=== PATIENT | female | born 1945 | race Caucasian/White ===

== ENCOUNTER 2016-12-09 21:55 | Observation (INO) | payer MEDICARE ==
--- NOTE | 2016-12-09 23:34 | ED ---
Loren You Thomas, scribed for Hermelindo Stanley MD on 12/09/16 at 2317 . GI/ HPI - HPI Summary HPI Summary: The pt is a 71 y/o F referred to the ED from her PCP Dr. Holbrook after he evaluated her today. She has had bloody stool for about a month. She additionally c/o SOB (onset a month ago). She states that her Sx started when she was switched from Plavix to another unspecified medication a month ago. She is scheduled for an appointment with a manager medical writing in two days. She is on 3L of oxygen at home. PMHx: HTN, COPD. - History of Current Complaint Chief Complaint: EDGIBleed Time Seen by Provider: 12/09/16 23:10 Stated Complaint: SENT BY DR HOLBROOK Onset/Duration: Started Weeks Ago - a month, Still Present Timing: Constant Pain Intensity: 0 Associated Signs and Symptoms: Positive: Blood w/Stool, Other: - POS: SOB Aggravating Factor(s): Nothing Alleviating Factor(s): Nothing - Additional Pertinent History Primary Care Physician: [id number] - Allergy/Home Medications Allergies/Adverse Reactions: Allergies Allergy/AdvReac Type Severity Reaction Status Date / Time No Known Allergies Allergy Verified 12/09/16 21:59 Home Medications: Home Medications B12 1 dose PO DAILY 12/10/16 [History Confirmed 12/10/16] Clopidogrel TAB* 75 mg PO DAILY 12/10/16 [History Confirmed 12/10/16] Ferrex 150 150 mg PO DAILY 12/10/16 [History Confirmed 12/10/16] Montelukast Sodium TAB* 10 mg PO DAILY 12/10/16 [History Confirmed 12/10/16] Spiriva CAP.INH* 2 puff INH DAILY 12/10/16 [History Confirmed 12/10/16] PMH/Surg Hx/FS Hx/Imm Hx Previously Healthy: No Endocrine/Hematology History: Denies: Hx Diabetes Cardiovascular History: Reports: Hx Hypercholesterolemia, Hx Hypertension - CONTROLLED WITH MED Denies: Hx Angina, Hx Coronary Artery Disease, Hx Myocardial Infarction, Hx Pacemaker/ICD, Hx Valvular Heart Disease Respiratory History: Reports: Hx Chronic Obstructive Pulmonary Disease (COPD) Denies: Hx Asthma History: Reports: Other Problems/Disorders - chronic renal insufficiency Musculoskeletal History: Reports: Hx Arthritis - LOWER BACK Sensory History: Reports: Hx Contacts or Glasses - reading Denies: Hx Hearing Aid Opthamlomology History: Reports: Hx Contacts or Glasses - reading Psychiatric History: Denies: Hx Panic Disorder - Cancer History Hx Chemotherapy: No Hx Radiation Therapy: No - Surgical History Surgery Procedure, Year, and Place: CAROTID ARTERY STENT 2010 AT [place]; lap hysterectomy at [facility] [place] Hx Anesthesia Reactions: No Infectious Disease History: No Infectious Disease History: Denies: Traveled Outside the [place] in Last 30 Days - Family History Known Family History: Positive: Other - POS: CA, throat - Social History Alcohol Use: None Substance Use Type: Reports: None Smoking Status (MU): Heavy Every Day Tobacco Smoker Type: Cigarettes Amount Used/How Often: 1 PPD Length of Time of Smoking/Using Tobacco: 40 YRS. Have You Smoked in the Last Year: Yes Review of Systems Constitutional: Negative Negative: Fever Eyes: Negative ENT: Negative Cardiovascular: Negative Positive: Shortness Of Breath - onset 1 month ago Gastrointestinal: Negative Genitourinary: Negative Musculoskeletal: Negative Skin: Negative Neurological: Negative Psychological: Normal All Other Systems Reviewed And Are Negative: Yes Physical Exam Triage Information Reviewed: Yes Vital Signs On Initial Exam: Initial Vitals Temp Pulse Resp BP Pulse Ox 98.2 F 91 20 152/60 98 12/09/16 21:59 12/09/16 21:59 12/09/16 21:59 12/09/16 21:59 12/09/16 21:59 Vital Signs Reviewed: Yes Appearance: Positive: Well-Appearing, No Pain Distress Skin: Positive: Warm Head/Face: Positive: Normal Head/Face Inspection Eyes: Positive: MAX ENT: Positive: Hearing grossly normal Neck: Positive: Supple Respiratory/Lung Sounds: Positive: Breath Sounds Present Cardiovascular: Positive: RRR Abdomen Description: Positive: Nontender, Soft Bowel Sounds: Positive: Present Musculoskeletal: Positive: Strength/ROM Intact Neurological: Positive: Alert, Oriented to Person Place, Time Diagnostics - Vital Signs Vital Signs Temp Pulse Resp BP Pulse Ox 12/09/16 21:59 98.2 F 91 20 152/60 98 - Laboratory Result Diagrams: 12/09/16 23:23 12/09/16 23:23 Lab Statement: Any lab studies that have been ordered have been reviewed, and results considered in the medical decision making process. Re-Evaluation - Re-Evaluation First Eval Re-Evaluation Time: 01:09 - results d/w pt, case d/w hospitalist MELISSA Course/Dx - Diagnoses Provider Diagnoses: GI bleed, ACS (acute coronary syndrome) - Physician Notifications Discussed Care Of Patient With: Carmencita Collado Time Discussed With Above Provider: 01:09 Instructed by Provider To: Other - Discussed case with the hospitalist, who will admit the pt Discharge - Discharge Plan Condition: Stable Disposition: ADMITTED TO [facility] documentation as recorded by the Loren brower Thomas accurately reflects the service I personally performed and the decisions made by me, Hermelindo Stanley MD.
[2016-12-09 23:54] LABS: Hematocrit 32 % (35-47); Hemoglobin 10.2 g/dl (12.0-16.0); Mean Corpuscular HGB Conc 32 g/dl (31-36); Mean Corpuscular Hemoglobin 29 pg (27-31); Mean Corpuscular Volume 93 fL (80-97); Mean Platelet Volume 9 um3 (7.4-10.4); Red Blood Count 3.47 10^6/ul (4.0-5.4); Red Cell Distribution Width 15 % (10.5-15); White Blood Count 11.5 10^3/ul (3.5-10.8)
[2016-12-09 23:58] LABS: Troponin I 0.08 ng/mL (<0.04)
[2016-12-10 00:13] LABS: Albumin 3.9 g/dL (3.2-5.2); BUN/Creatinine Ratio 16.6 (8-20); Calcium 9.4 mg/dL (8.6-10.3); EGFR African American 40.1 (>60); EGFR Non-African American 31.2 (>60); Globulin 3.4 g/dL (2-4); Potassium 5.9 mmol/L (3.5-5.0); Total Bilirubin 0.2 mg/dL (0.2-1.0); Total Protein 7.3 g/dL (6.4-8.9)
[2016-12-10] MEDS ORDERED: Acetaminophen TAB* 325 MG PO PRN (01:38)
[2016-12-10] MEDS ORDERED: Ondansetron INJ* 2 MG/ML VIAL IV PRN (01:38)
[2016-12-10] MEDS ORDERED: Docusate CAP* 100 MG PO PRN (01:38)
[2016-12-10] MEDS ORDERED: Al Hydrox/Mg Hydrox/Simet LIQ* 30 ML UDC PO PRN (01:38)
[2016-12-10] MEDS ORDERED: Senna TAB PO PRN (01:38)
[2016-12-10] MEDS ORDERED: Albuterol 2.5 MG/3 ML NEB.SOL* (0.083%) INH PRN (01:44)
[2016-12-10] MEDS ORDERED: NS 0.9% 1000 ML* 1,000 ML IV SCH (01:45)
[2016-12-10] MEDS ORDERED: Pantoprazole IV* 40 MG IV SCH (02:00)
[2016-12-10 06:11] LABS: Hematocrit 29 % (35-47); Hemoglobin 9.2 g/dl (12.0-16.0); Mean Corpuscular HGB Conc 32 g/dl (31-36); Mean Corpuscular Hemoglobin 30 pg (27-31); Mean Corpuscular Volume 94 fL (80-97); Mean Platelet Volume 9 um3 (7.4-10.4); Red Blood Count 3.09 10^6/ul (4.0-5.4); Red Cell Distribution Width 15 % (10.5-15); White Blood Count 9.7 10^3/ul (3.5-10.8)
[2016-12-10 06:29] LABS: BUN/Creatinine Ratio 16.4 (8-20); EGFR African American 39.6 (>60); EGFR Non-African American 30.8 (>60); HDL Cholesterol 39.8 mg/dL
[2016-12-10 06:46] LABS: Troponin I 0.07 ng/mL (<0.04)
[2016-12-10 07:18] LABS: Potassium 6.3 mmol/L (3.5-5.0)
--- NOTE | 2016-12-10 07:37 | RAD ---
HISTORY: Shortness of breath COMPARISONS: December 07, 2014 VIEWS: 4: Frontal dual-energy and lateral views of the chest. FINDINGS: CARDIOMEDIASTINAL SILHOUETTE: The cardiomediastinal silhouette is normal. ORIN: The orin are normal. PLEURA: The costophrenic angles are sharp. No pleural abnormalities are noted. LUNG PARENCHYMA: There is hyperinflation with flattening of the diaphragm and expansion of the AP diameter of the chest. ABDOMEN: The upper abdomen is clear. There is no subphrenic gas. BONES AND SOFT TISSUES: No bone or soft tissue abnormalities are noted. OTHER: None. IMPRESSION: HYPERINFLATION, CONSISTENT WITH COPD. NO ACTIVE CARDIOPULMONARY DISEASE.
--- NOTE | 2016-12-10 07:49 | HP ---
CC: Prosper Holbrook MD * HISTORY AND PHYSICAL: DATE OF ADMISSION: 12/10/16 TIME OF EVALUATION: 0100. PRIMARY CARE PHYSICIAN: Prosper Holbrook MD CHIEF COMPLAINT: Positive blood in the stool. HISTORY OF PRESENT ILLNESS: This is a 71-year-old female with past medical history of COPD on 3 L of oxygen, who presented to the emergency room after her primary care called when they received a positive Hemoccult. The patient states she has had black stools for the past month. She saw her primary few days ago. They sent her home with stool cards. She returned the stool cards and they called this evening saying that she needs to come in for evaluation. She states she has been more short of breath over the past few days. No chest pain. No coughing. She is not lightheaded, no dizziness. No abdominal pain. No changes in her bowels. No fevers or chills. She states she has been gaining weight. Her daughter states she has a very good smith appetite. No nausea, vomiting, or diarrhea. She was scheduled to see GI tomorrow, in fact, at [place], and was scheduled for a colonoscopy in January as she is due for one. Otherwise, remaining review of systems is negative. The patient was seen in the emergency room, found to have a positive Hemoccult and an elevated troponin, and was referred to the hospital service for further evaluation. PAST MEDICAL HISTORY: 1. Hypertension. 2. Hyperlipidemia. 3. COPD, on 3 L continuous. 4. CKD. 5. Obstructive sleep apnea, not on CPAP. 6. History of peripheral vascular disease. 7. History of right carotid endarterectomy. 8. Hysterectomy. MEDICATIONS: 1. Irbesartan 300 mg p.o. daily. 2. Aspirin 81 mg daily. 3. Lovastatin 20 mg daily. 4. Metoprolol 100 mg. 5. Hydrochlorothiazide 12.5 mg. 6. Gabapentin 100 mg. 7. Albuterol inhaler every 4 hours as needed. 8. Spiriva two puffs in the morning. 9. Symbicort one puff in the morning. 10. Another medication that is unable to read the handwriting. 11. Clopidogrel 75 mg p.o. daily. 12. Vitamin B12 1000 mcg daily. 13. Montelukast 10 mg daily. ALLERGIES: No known drug allergies. FAMILY HISTORY: Father from aneurysm at 65. Mother from an accident. SOCIAL HISTORY: The patient lives alone. She is independent of her ADLs. She has a heavy pack year history. She states she has cut down; does not smoke every day. No alcohol or illicit drug use. Her daughter is her healthcare proxy. Her name is Joann Goldberg. Code status is full code. REVIEW OF SYSTEMS: A 14-point review of systems was reviewed. Pertinent positives and negative are mentioned in the HPI, otherwise negative. PHYSICAL EXAMINATION GENERAL: Frail, elderly female, in no acute distress with her daughter at the bedside. VITAL SIGNS: Temperature 98.2, pulse rate 85, respiratory rate 20, oxygen saturation 99% on 3 L, blood pressure 144/60. HEENT: Head: Normocephalic. Pupils equal and reactive. Anicteric. Oropharynx: Mucous membranes moist. NECK: Supple. No lymphadenopathy. RESPIRATORY: Diminished breath sounds. Poor aeration. Fine expiratory wheeze , most prominent on the left. CARDIAC: Regular rate and rhythm. Soft systolic murmur. ABDOMEN: Soft, nontender, nondistended. EXTREMITIES: No clubbing, cyanosis, or edema. +1 DPs. NEUROLOGIC: Alert and oriented x3. No focal neurologic deficits. LABORATORY DATA: White count 11.5, hemoglobin 10.2, hematocrit 32, platelets 226. INR 0.86. Sodium 136, potassium 5.9, chloride 101, bicarb 31, BUN 27, creatinine 1.63, troponin 0.08, glucose 116. RADIOGRAPHIC DATA: EKG showed normal sinus rhythm, no significant ST changes. ASSESSMENT: This is a 71-year-old female with a past medical history of chronic obstructive pulmonary disease, peripheral vascular disease, on aspirin and Plavix, who presented to the emergency room after being called from her primary for positive Hemoccult. 1. Gastrointestinal bleed. Assessment: Patient with black stools for the past month, most likely an occult upper GI bleed. She is on aspirin and Plavix, and still smoking intermittently. Never had an endoscopy before in the past. Her H and H is stable. Her hemodynamics are stable. Plan: We will hold her aspirin and Plavix, start her on Protonix and will recommend followup with GI in the morning. We will keep her NPO in case they are able to do an endoscopy in the morning. 2. Elevated troponin. Assessment: Patient denies any chest pain, although she has been short of breath for the past few days. She does have a history of peripheral vascular disease. Plan: We will admit her to telemetry. Trend her troponin. Check a lipid panel and obtain an echocardiogram. We will also get a chest x-ray. 3. Hyperkalemia. We will hold her ARB and repeat her labs in the morning. CHRONIC MEDICAL PROBLEMS: 1. COPD. On 3 L as noted. Stated more short of breath. Get a baseline chest x- ray. Resume her inhaler regimen. 2. Peripheral vascular disease. As mentioned, will hold her aspirin and Plavix until further evaluated, and followup GI and Cardiology regarding resuming this depending on results of her endoscopy. 3. Hypertension. We will resume her metoprolol. As mentioned, we will hold her losartan and hydrochlorothiazide as she is NPO and her hyperkalemia. 4. FEN. As mentioned, keep the patient NPO for now with gentle IV fluids. 5. DVT prophylaxis. The patient scores high risk in the setting of GI bleed and place her on SCDs. 6. Code status. Full code. PATIENT TIME: Greater than 50 minutes were spent doing the history and physical , more than half the time was spent in direct patient contact. [id number]/CPS #: [id number]
[2016-12-10] MEDS ORDERED: Insulin REGULAR(*) 1 UNITS UNIT IV PUSH ONE (07:57)
[2016-12-10] MEDS ORDERED: Dextrose 50% Syringe 50 ML* 25 GM/50 ML SYRINGE IV PUSH PRN (07:57)
[2016-12-10] MEDS ORDERED: Perflutren Lipid Microsphere* 3 ML VIAL ONE (08:04)
[2016-12-10] MEDS ORDERED: Sodium Polystyrene ORAL.SOL* 15 GM/60 ML BTL PO ONE (08:22)
[2016-12-10] MEDS ORDERED: Calcium Gluconate INJ* 1 GM in NS 0.9% 50 ML* 50 ML IVPB ONE (08:30)
[2016-12-10] MEDS: Albuterol HFA INHALER* 8 gm MDI INH PRN ×4 (08:37→19:26)
[2016-12-10] MEDS: Tiotropium CAP.INH* CAP.INH/18 MCG INH SCH (08:43)
[2016-12-10] MEDS: Mometasone/Formoter 200/5 MDI INH SCH ×2 (08:43→20:10)
[2016-12-10] MEDS ORDERED: Tiotropium CAP.INH* CAP.INH/18 MCG INH ONE (08:52)
[2016-12-10] MEDS: Gabapentin CAP(*) 100 MG PO SCH ×2 (08:54→19:19)
[2016-12-10] MEDS: Metoprolol Succinate XL TAB* 100 MG PO SCH (08:54)
[2016-12-10] MEDS ORDERED: Losartan TAB* 25 MG PO SCH (09:00)
[2016-12-10] MEDS ORDERED: Spiriva Inhaler DEVICE* 1 EACH DEVICE ONE (09:00)
--- NOTE | 2016-12-10 09:55 | PN ---
Subjective Date of Service: 12/10/16 Interval History: Pt is feeling fine. She denies any SOB. No CP. She has no abdominal pain. She is anxious to get and get home. Objective Active Medications: Acetaminophen (Tylenol Tab*) 650 mg PO Q4H PRN PRN Reason: FEVER/PAIN Al Hydrox/Mg Hydrox/Simethicone (Maalox Plus*) 30 ml PO Q6H PRN PRN Reason: INDIGESTION Albuterol (Ventolin 2.5 Mg/3 Ml Neb.Olamide*) 2.5 mg INH Q4H PRN PRN Reason: SOB/WHEEZING Last Admin: 12/10/16 03:59 Dose: 2.5 mg Albuterol (Ventolin Hfa Inhaler*) 2 puff INH Q2H PRN PRN Reason: SOB/WHEEZING Last Admin: 12/10/16 08:37 Dose: 2 puff Dextrose (D50w Syringe 50 Ml*) 25 gm IV PUSH ONCE PRN PRN Reason: FS < 60 Last Admin: 12/10/16 08:50 Dose: 25 gm Docusate Sodium (Colace Cap*) 100 mg PO BID PRN PRN Reason: CONSTIPATION Gabapentin (Neurontin Cap(*)) 100 mg PO BID PENDING SALE TO [facility] Last Admin: 12/10/16 08:54 Dose: 100 mg Sodium Chloride (Ns 0.9% 1000 Ml*) 1,000 mls @ 75 mls/hr IV PER RATE PENDING SALE TO [facility] Last Admin: 12/10/16 03:15 Dose: 75 mls/hr Lovastatin (Mevacor(Nf)) 20 mg PO 1700 PENDING SALE TO [facility] Metoprolol Succinate (Toprol Xl Tab*) 100 mg PO DAILY PENDING SALE TO [facility] Last Admin: 12/10/16 08:54 Dose: 100 mg Mometasone Furoate/Formoterol Fumar (Dulera 200/5 Mdi*) 2 puff INH BID PENDING SALE TO [facility] PRN Reason: Protocol Last Admin: 12/10/16 08:43 Dose: 2 puff Montelukast Sodium (Singulair Tab*) 10 mg PO BEDTIME PENDING SALE TO [facility] Ondansetron HCl (Zofran Inj*) 4 mg IV Q4H PRN PRN Reason: NAUSEA/VOMITING Pantoprazole Sodium (Protonix Iv*) 40 mg IV Q24H PENDING SALE TO [facility] Last Admin: 12/10/16 03:14 Dose: 40 mg Senna (Senokot Tab*) 1 tab PO BID PRN PRN Reason: CONSTIPATION Tiotropium Garrison (Spiriva Cap.Inh*) 1 cap INH DAILY KEISHA Last Admin: 12/10/16 08:43 Dose: 1 cap Vital Signs 12/10/16 12/10/16 12/10/16 02:00 02:03 02:22 Temperature Pulse Rate 86 82 Respiratory Rate Blood Pressure 101/88 (mmHg) O2 Sat by Pulse 100 100 Oximetry 12/10/16 12/10/16 12/10/16 02:30 03:34 03:59 Temperature 98.3 F Pulse Rate 81 97 85 Respiratory 16 16 Rate Blood Pressure 124/60 146/62 (mmHg) O2 Sat by Pulse 100 100 99 Oximetry 12/10/16 12/10/16 12/10/16 07:10 07:35 08:48 Temperature 98.0 F Pulse Rate 76 80 Respiratory 16 16 16 Rate Blood Pressure 115/43 (mmHg) O2 Sat by Pulse 100 93 Oximetry 12/10/16 08:54 Temperature Pulse Rate Respiratory 24 Rate Blood Pressure (mmHg) O2 Sat by Pulse Oximetry Oxygen Devices in Use Now: Nasal Cannula - 3L Appearance: Elderly female sitting up in bed, NAD Eyes: No Scleral Icterus Ears/Nose/Mouth/Throat: Mucous Membranes Moist Respiratory: Symmetrical Chest Expansion and Respiratory Effort, Clear to Auscultation - diminished breath sounds in all lung dunlap with few scattered wheezes Cardiovascular: NL Sounds; No Murmurs; No JVD, RRR, No Edema Abdominal: NL Sounds; No Tenderness; No Distention Extremities: No Clubbing, Cyanosis Skin: No Rash or Ulcers, No Nodules or Sclerosis Neurological: Alert and Oriented x 3 Result Diagrams: 12/10/16 06:01 12/10/16 06:01 Assess/Plan/Problems-Billing Ms Lambert is a 71 yo F who has a h/o stage III CKD, chronic anemia, HTN, HLD, VEENA and COPD with chronic hypoxic respiratory failure who presented to the ER with c/o heme positive stool. - Patient Problems (1) Anemia Current Visit: Yes Status: Acute Code(s): D64.9 - ANEMIA, UNSPECIFIED SNOMED Code(s): 664895493 Comment: THe patietn has been chronically anemic dating back to 01/2016. She has been having black stools but takes iron supplementation. Her PCP had her do stool cards and they came up positive. Will get GI consultation. Continue protonix IV. (2) Elevated troponin Current Visit: Yes Status: Acute Code(s): R74.8 - ABNORMAL LEVELS OF OTHER SERUM ENZYMES SNOMED Code(s): 272224537 Comment: I suspect the elevated troponin is related to her CKD. She has no CP. Echo results pending. No further work up necessary unless echo is abnormal. (3) Hyperkalemia Current Visit: Yes Status: Acute Code(s): E87.5 - HYPERKALEMIA SNOMED Code (s): 21956944 Comment: Unclear what drove up the K. Continue to hold losartan and HCTZ. She has received kayexalate, calcium gluconate and insulin/dextrose. Follow up K at 1300. (4) COPD (chronic obstructive pulmonary disease) Current Visit: Yes Status: Acute Code(s): J44.9 - CHRONIC OBSTRUCTIVE PULMONARY DISEASE, UNSPECIFIED SNOMED Code(s): 01934024 Comment: No signs of exacerbation. She has chronic hypoxic respiratory failure and requires 3L O2 continuously at home. (5) HTN (hypertension) Current Visit: Yes Status: Acute Code(s): I10 - ESSENTIAL (PRIMARY) HYPERTENSION SNOMED Code(s): 87216550 Comment: BP is under good control. Continue current medication regimen. (6) HLD (hyperlipidemia) Current Visit: Yes Status: Acute Code(s): E78.5 - HYPERLIPIDEMIA, UNSPECIFIED SNOMED Code(s): 83063398 Comment: Continue lovastatin. (7) Stage III chronic kidney disease Current Visit: Yes Status: Acute Code(s): N18.3 - CHRONIC KIDNEY DISEASE, STAGE 3 (MODERATE) SNOMED Code(s): 242385286 Comment: Creatinine is at baseline. Continue to follow. (8) DVT prophylaxis Current Visit: Yes Status: Acute Code(s): AGU4840 - SNOMED Code(s): 728239075 Comment: SCDs (9) Full code status Current Visit: Yes Status: Acute Code(s): Z78.9 - OTHER SPECIFIED HEALTH STATUS SNOMED Code(s): 798206586
--- NOTE | 2016-12-10 12:08 | ECHO ---
Patient: JYOTI MONTES [facility] Rec#: [id number] : 1945 Date: 12/10/2016 Age: 71y Height: 152.4 cm / 60.0 in Weight: 72.57 kg / 159.9 lbs Sex: F BSA: 1.7 Room#: 453 Admit Date#: 12/10/2016 Type: Inpatient Referring: Carmencita Collado Reading: Rajeev Jiang MD Bankruptcy Legal Assistant: Lilia Lynn RDCS CC: Prosper Holbrook MD Transthoracic Echocardiogram Indication: SOB, ACS BP: 146/62 HR: 71 Rhythm: NSR Indications Shortness of Breath Findings History: HTN, COPD, smoker. Technical Comments: The study is technically difficult. The study is technically limited due to patient body habitus. The study is technically limited due to the patient's history of COPD. The study is technically limited due to the patient's smoking history. Completed at 0900. Left Ventricle: The left ventricular chamber size is normal. Mild concentric left ventricular hypertrophy is observed. Global left ventricular wall motion and contractility are within normal limits. There is normal left ventricular systolic function. The estimated ejection fraction is 60-65%. Abnormal left ventricular diastolic function is observed. Abnormal left ventricular diastolic filling is observed, consistent with impaired relaxation. Left Atrium: The left atrium is slightly dilated. Right Ventricle: The right ventricle wall thickness is moderately increased. The right ventricle is slightly dilated. The right ventricular global systolic function is normal. Right Atrium: The right atrial cavity size is normal. Aortic Valve: The aortic valve is trileaflet. The aortic valve leaflets are mildly thickened. There is no evidence of aortic regurgitation. There is no evidence of aortic stenosis. Mitral Valve: There is mitral annular calcification. The mitral valve leaflets are mildly thickened. There is a trace of mitral regurgitation. There is no evidence of mitral stenosis. Tricuspid Valve: The tricuspid valve leaflets are normal. There is trace to mild tricuspid regurgitation. The right ventricular systolic pressure is estimated at 24 mmHg. There is evidence that pulmonary hypertension may be underestimated. There is no tricuspid stenosis. Pulmonic Valve: The pulmonic valve appears normal. There is a trace pulmonic regurgitation. There is no pulmonic stenosis. Pericardium: There is no significant pericardial effusion. A pericardial fat pad is visualized. Aorta: There is no dilatation of the ascending aorta. The aortic arch is not well visualized. There is no dilation of the aortic root. Pulmonary Artery: The main pulmonary artery is not well visualized. Venous: The inferior vena cava appears normal in size. There is a greater than 50% respiratory change in the inferior vena cava dimension. Contrast: Definity was used to optimize study. 3 mL of diluted Definity was utilized. Intravenous contrast was used to enhance endocardial border definition. Conclusions Global left ventricular wall motion and contractility are within normal limits. There is normal left ventricular systolic function. The estimated ejection fraction is 60-65%. Mild concentric left ventricular hypertrophy is observed. The right ventricular global systolic function is normal. There is no evidence of aortic stenosis. There is a trace of mitral regurgitation. There is trace to mild tricuspid regurgitation. The right ventricular systolic pressure is estimated at 24 mmHg. There is no significant pericardial effusion. Measurements Name Value Normal Range RVIDd (AP) 2D 2.6 cm (0.9 - 2.6) RVDdMajor (2D) 4.4 cm (2.2 - 4.4) RVAW (2D) 1.3 cm (0.2 - 0.5) RAd ISD 4CH 4.4 cm (3.4 - 4.9) RA (A4C)W 3.3 cm (2.9 - 4.6) IVSd (2D) 1.1 cm (0.6 - 1) LVPWd (2D) 1.1 cm (0.6 - 1) LVIDd (2D) 3.6 cm (3.6 - 5.4) LVIDs (2D) 1.9 cm - LV FS (2D) 46 % (25 - 45) Aortic Annulus 1.8 cm (1.4 - 2.6) Ao root diameter (2D) 2.7 cm (2.1 - 3.5) Ascending Ao 2.9 cm (2.1 - 3.4) LA dimension (AP) 2D 3.8 cm (2.3 - 3.8) LAd ISD 4CH 5.2 cm (2.9 - 5.3) LA ISD 4CH W 4.4 cm (2.5 - 4.5) Name Value Normal Range LA ESV SP 4CH (A/L) 71 ml - LA ESV SP 2CH (A/L) 46 ml - LA ESV BP (A/L) 58 ml - LA ESV BP (A/L) index 34.24 ml/m2 - LA ESV SP 4CH (MOD) 67 ml - LA ESV SP 2CH (MOD) 45 ml - Name Value Normal Range MV E-wave Vmax 0.86 m/sec - MV deceleration time 429 msec - MV A-wave Vmax 1.18 m/sec - MV E:A ratio 0.73 ratio - LV septal e' Vmax 0.05 m/sec - LV lateral e' Vmax 0.04 m/sec - LV E:e' septal ratio 17.2 ratio - LV E:e' lateral ratio 21.5 ratio - Name Value Normal Range AV Vmax 1.82 m/sec - AV VTI 38.4 cm - AV peak gradient 13.19 mmHg - AV mean gradient 6.65 mmHg - LVOT Vmax 1.4 m/sec - LVOT VTI 35.79 cm - LVOT peak gradient 7.81 mmHg - LVOT mean gradient 3.42 mmHg - Name Value Normal Range TR Vmax 2.3 m/sec - TR peak gradient 21 mmHg - RAP 3 mmHg - RVSP 24 mmHg - IVC diameter 1.7 cm - Name Value Normal Range PV Vmax 1.19 m/sec - PV peak gradient 5.66 mmHg -
[2016-12-10 13:04] LABS: Hematocrit 27 % (35-47); Hemoglobin 8.5 g/dl (12.0-16.0)
[2016-12-10 13:31] LABS: Potassium 5.2 mmol/L (3.5-5.0)
[2016-12-10] MEDS ORDERED: Meperidine SYRINGE* 50 MG/ML ONE (14:39)
[2016-12-10] MEDS ORDERED: Midazolam* 1 MG/ML 5 ML VIAL (5 MG) ONE (14:39)
[2016-12-10] MEDS ORDERED: Lovastatin (NF) 10 MG TAB PO SCH (17:00)
--- NOTE | 2016-12-10 17:43 | CONS ---
GASTROENTEROLOGY CONSULT: DATE: 12/10/16 - ROOM #453 CONSULTING PHYSICIANS: Kelly Goldberg; Prosper Holbrook. REASON FOR CONSULT: Dark stool for a month with anemia and heme-positive stool on an outpatient collection. She has baseline shortness of breath, on continuous 3 L home O2. HISTORY: This 71-year-old woman, who has cut back on smoking though not entirely quit read on the bottle that black stool was a dangerous sign when she refilled her iron. She contacted her primary office and was sent home with Hemoccults. They returned positive. She states the stool has been black for a month. There has not been change in pattern during that time. She has not seen any red blood. She was given the iron by a practitioner at [facility], though she cannot recall the details. It was done some months ago. She had never been on iron before that she can recall She had a colonoscopy at the [facility], July 2009, with 3 rectosigmoid lesions removed via hot biopsy. A prior colonoscopy in 2002 at [facility] was negative. She has never had an upper endoscopy. She is said to have a good appetite and does get normally hungry. There has been no vomiting or acid indigestion. She was changed from Plavix to clopidogrel a few months back and she wonders whether that might have been related to the stool turning black. PAST MEDICAL HISTORY: 1. Obesity. 2. Smoking. 3. Chronic renal disease - she just saw Dr. Elizalde within the month and was asked to restrict the protein and promote fruit intake. On this admission, her potassium was up and she received Kayexalate. 4. COPD - on 3 L O2. 5. Sleep apnea. 6. Status post right carotid endarterectomy - she is followed by vascular surgical office at [place], though she does not recall the names. 7. Hysterectomy - laparoscopic for Pap smear changes. She states the ovaries were left. MEDICATIONS: Outpatient: Aspirin 81, Plavix 75, lovastatin 20, metoprolol 100 , hydrochlorothiazide 12.5, irbesartan 300, a variety of inhalers, vitamin B12 1 mg, and an unknown medication indecipherable on the handwritten list. PHYSICAL EXAM: She is a moderately obese, chronically ill-appearing woman with oxygen applied. She is able to sit up, says she is hungry. She can lie flat. Nonetheless, she looks chronically ill with a sallow complexion. HEENT exam shows no icterus. She has no adenopathy. Breath sounds were diminished symmetrically very much so. The abdomen is protuberant. A couple of small laparoscopic lower abdominal scars. There is no hernia. Bowel sounds are active and she is nontender. Perianal inspection is normal. Extremities show puffiness but no pitting edema. LABORATORY DATA: Hemoglobin on admission 10.2, hematocrit 32, MCV 93, platelets 226; these all appear similar to values tracing back to January 2016 when hemoglobin was 10.4, hematocrit 32, MCV 95, platelets 182. IMPRESSION: This 71-year-old woman with severe chronic obstructive pulmonary disease and vascular disease, has an anemia that clearly has a number of contributors. Chronic renal disease is playing a role (erythropoietin 04/05/16 was 16.3 compared to a normal range of 2.6 to 18.5 and thus it inappropriately not fully responding) and she is on numerous medications that probably accelerate gastrointestinal blood loss slightly. She does not have any symptoms of an upper gastrointestinal peptic disorder, but the next step which would be relatively noninvasive and potentially useful would be to perform an upper endoscopy. It is unclear whether that can be done with standard conscious sedation and adult scope, but is likely to be well tolerated via a pediatric scope if that is what is required. The procedure will be for informational purposes as further followup with her vascular prescribing practitioners would be required prior to stopping Plavix for removing polyps or repeating colonoscopy. With colonoscopies in 2002 and 2009 having unimpressive results, the odds of a large anemia-producing colon lesion at this time are fairly low. Rectal - done at EGD - hemoccult negative [id number]/[facility] #: [id number] [facility]
[2016-12-10] MEDS ORDERED: Montelukast Sodium TAB* 10 MG PO SCH (21:00)
--- NOTE | 2016-12-11 04:03 | PRO ---
DATE: 12/10/16 - ROOM #453 REFERRING PHYSICIAN: Prosper Holbrook * PROCEDURE: Upper endoscopy with standard scope while patient on Plavix. INDICATION: This 71-year-old woman had noted dark stool a month ago. She was found to be heme positive as an outpatient and was referred to the ER. She had not had any peptic pain. She has not had any nausea, vomiting or diarrhea since admission. She is hungry. ENDOSCOPIST: Dr. Lloyd MEDICATION: Small incremental doses of midazolam 2 mg, meperidine 37.5. FINDINGS: She is a chronically ill-appearing moderately overweight (centripetal ) older woman in no overt distress. She has oxygen applied and is comfortable lying at 15 degrees. EGD: Larynx - symmetric limited views. Esophagus - easily entered and gagging is minimal to almost nonexistent. The mucosa is normal in the upper mid and lower esophagus with the EG junction somewhat loose and there is a tongue of smooth columnar mucosa at 2 o'clock and a minimal erosion at 4 o'clock. There are no masses. Stomach - generally normal mucosa of the cardia, fundus, body, and antrum. Full insufflation views of the cardia later did show a small erosion high in the cardia though there was no blood loss and it was quite superficial. The main gastric body and antrum appeared normal. Duodenum - the pylorus, bulb and second through fourth portions appeared normal. No erosions and no blood was seen. IMPRESSION: 1. Loose esophagogastric junction. Addendum: ALLISON done and stool heme negative 2. Minimal GERD - we will start omeprazole 20 mg. 3. Mild fundal gastritis. 4. Heme-positive stool - another collection either off or on reduced iron and with reduced consumption of melon would be reasonable. With colonoscopies in 2002 and 2009 a large anemia-inducing polyp is somewhat unlikely. [id number]/[facility] #: [id number] [facility]
[2016-12-11 04:37] LABS: Hematocrit 28 % (35-47); Hemoglobin 8.8 g/dl (12.0-16.0); Mean Corpuscular HGB Conc 32 g/dl (31-36); Mean Corpuscular Hemoglobin 30 pg (27-31); Mean Corpuscular Volume 93 fL (80-97); Mean Platelet Volume 9 um3 (7.4-10.4); Red Blood Count 2.97 10^6/ul (4.0-5.4); Red Cell Distribution Width 15 % (10.5-15)
[2016-12-11 04:57] LABS: BUN/Creatinine Ratio 16.8 (8-20); Calcium 9.1 mg/dL (8.6-10.3); EGFR African American 34.7 (>60); Potassium 4.7 mmol/L (3.5-5.0)
[2016-12-11] MEDS: Albuterol HFA INHALER* 8 gm MDI INH PRN (05:50)
[2016-12-11] MEDS ORDERED: Omeprazole CAP* 20 MG PO SCH (07:30)
[2016-12-11 07:33] VITALS: BP 138/48
[2016-12-11] MEDS: Metoprolol Succinate XL TAB* 100 MG PO SCH (07:41)
[2016-12-11] MEDS: Gabapentin CAP(*) 100 MG PO SCH (07:42)
[2016-12-11] MEDS: Mometasone/Formoter 200/5 MDI INH SCH (08:12)
[2016-12-11] MEDS: Tiotropium CAP.INH* CAP.INH/18 MCG INH SCH (08:12)
--- NOTE | 2016-12-11 11:00 | PN ---
Subjective Date of Service: 12/11/16 Interval History: Pt is feeling well. She feels ready to go home. She denies any more SOB than usual. She had a brown stool this AM. Objective Active Medications: Acetaminophen (Tylenol Tab*) 650 mg PO Q4H PRN PRN Reason: FEVER/PAIN Al Hydrox/Mg Hydrox/Simethicone (Maalox Plus*) 30 ml PO Q6H PRN PRN Reason: INDIGESTION Albuterol (Ventolin 2.5 Mg/3 Ml Neb.Olamide*) 2.5 mg INH Q4H PRN PRN Reason: SOB/WHEEZING Last Admin: 12/10/16 03:59 Dose: 2.5 mg Albuterol (Ventolin Hfa Inhaler*) 2 puff INH Q2H PRN PRN Reason: SOB/WHEEZING Last Admin: 12/11/16 05:50 Dose: 2 puff Dextrose (D50w Syringe 50 Ml*) 25 gm IV PUSH ONCE PRN PRN Reason: FS < 60 Last Admin: 12/10/16 08:50 Dose: 25 gm Docusate Sodium (Colace Cap*) 100 mg PO BID PRN PRN Reason: CONSTIPATION Gabapentin (Neurontin Cap(*)) 100 mg PO BID [facility] Last Admin: 12/11/16 07:42 Dose: 100 mg Lovastatin (Mevacor (Nf)) 20 mg PO 1700 [facility] Last Admin: 12/10/16 16:40 Dose: 20 mg Metoprolol Succinate (Toprol Xl Tab*) 100 mg PO DAILY [facility] Last Admin: 12/11/16 07:41 Dose: 100 mg Mometasone Furoate/Formoterol Fumar (Dulera 200/5 Mdi*) 2 puff INH BID [facility] PRN Reason: Protocol Last Admin: 12/11/16 08:12 Dose: 2 puff Montelukast Sodium (Singulair Tab*) 10 mg PO BEDTIME [facility] Last Admin: 12/10/16 19:19 Dose: 10 mg Omeprazole (Prilosec Cap*) 20 mg PO 0730 [facility] Last Admin: 12/11/16 07:42 Dose: 20 mg Ondansetron HCl (Zofran Inj*) 4 mg IV Q4H PRN PRN Reason: NAUSEA/VOMITING Senna (Senokot Tab*) 1 tab PO BID PRN PRN Reason: CONSTIPATION Tiotropium [place]de (Spiriva Cap.Inh*) 1 cap INH DAILY [facility] Last Admin: 12/11/16 08:12 Dose: 1 cap Vital Signs 12/10/16 12/10/16 12/10/16 11:34 15:55 17:53 Temperature 98.8 F 98.0 F 98.2 F Pulse Rate 78 82 88 Respiratory 16 18 18 Rate Blood Pressure 136/45 128/49 149/46 (mmHg) O2 Sat by Pulse 100 100 98 Oximetry 12/10/16 12/10/16 12/10/16 19:12 19:19 20:00 Temperature 98.4 F Pulse Rate 79 88 Respiratory 17 16 16 Rate Blood Pressure 134/43 (mmHg) O2 Sat by Pulse 99 96 Oximetry 12/10/16 12/11/16 12/11/16 21:19 00:32 04:06 Temperature 98.7 F 98.2 F Pulse Rate 84 84 Respiratory 18 24 20 Rate Blood Pressure 117/51 123/61 (mmHg) O2 Sat by Pulse 99 100 Oximetry 12/11/16 12/11/16 12/11/16 07:31 07:42 07:47 Temperature 97.5 F Pulse Rate 86 Respiratory 20 18 18 Rate Blood Pressure 138/48 (mmHg) O2 Sat by Pulse 100 Oximetry 12/11/16 12/11/16 08:15 09:42 Temperature Pulse Rate 83 Respiratory 16 18 Rate Blood Pressure (mmHg) O2 Sat by Pulse 98 Oximetry Oxygen Devices in Use Now: Nasal Cannula - 3L-98% Appearance: Elderly female sitting on the edge of the bed, NAD Eyes: No Scleral Icterus Ears/Nose/Mouth/Throat: Mucous Membranes Moist Respiratory: Symmetrical Chest Expansion and Respiratory Effort, Clear to Auscultation - markedly diminished breath sounds in all lung dunlap Cardiovascular: NL Sounds; No Murmurs; No JVD, RRR, No Edema Abdominal: NL Sounds; No Tenderness; No Distention Extremities: No Clubbing, Cyanosis Skin: No Rash or Ulcers, No Nodules or Sclerosis Neurological: Alert and Oriented x 3 Result Diagrams: 12/11/16 04:29 12/11/16 04:29 Microbiology and Other Data: Microbiology 12/10/16 15:00 Stool Occult Blood (NATASHA) - Final Stool Assess/Plan/Problems-Billing Ms Lambert is a 71 yo F who has a h/o stage III CKD, chronic anemia, HTN, HLD, VEENA and COPD with chronic hypoxic respiratory failure who presented to the ER with c/o heme positive stool. - Patient Problems (1) Anemia Current Visit: Yes Status: Acute Code(s): D64.9 - ANEMIA, UNSPECIFIED SNOMED Code(s): 720121135 Comment: EGD done yesterday did not reveal any source of bleed. ? lower GI bleed vs heme positive stool card secondary to cross reaction with melon (was informed by the Dr. Lloyd that melon can cause a positive and she had been eating a lot of melon. Follow up CBC on 12/13/16. Follow up with Dr. Holbrook as an outpatient. (2) Elevated troponin Current Visit: Yes Status: Acute Code(s): R74.8 - ABNORMAL LEVELS OF OTHER SERUM ENZYMES SNOMED Code(s): 919558516 Comment: I suspect the elevated troponin is related to her CKD. She has no CP. Echo shows a normal EF and no significant wall motion abnormalities. (3) Hyperkalemia Current Visit: Yes Status: Acute Code(s): E87.5 - HYPERKALEMIA SNOMED Code (s): 09406194 Comment: Potassium level has normalized. ? related to intake. Follow up K level 12/13/16. Hold ARB. Follow up with Dr. Elizalde as an outpatient. (4) COPD (chronic obstructive pulmonary disease) Current Visit: Yes Status: Acute Code(s): J44.9 - CHRONIC OBSTRUCTIVE PULMONARY DISEASE, UNSPECIFIED SNOMED Code(s): 12952717 Comment: No signs of exacerbation. She has chronic hypoxic respiratory failure and requires 3L O2 continuously at home. (5) HTN (hypertension) Current Visit: Yes Status: Acute Code(s): I10 - ESSENTIAL (PRIMARY) HYPERTENSION SNOMED Code(s): 19365739 Comment: BP is under good control. Continue current medication regimen. (6) HLD (hyperlipidemia) Current Visit: Yes Status: Acute Code(s): E78.5 - HYPERLIPIDEMIA, UNSPECIFIED SNOMED Code(s): 77570758 Comment: Continue lovastatin. (7) Stage III chronic kidney disease Current Visit: Yes Status: Acute Code(s): N18.3 - CHRONIC KIDNEY DISEASE, STAGE 3 (MODERATE) SNOMED Code(s): 151778238 Comment: Creatinine is at baseline. Continue to follow. (8) DVT prophylaxis Current Visit: Yes Status: Acute Code(s): HKV9937 - SNOMED Code(s): 671816138 Comment: SCDs (9) Full code status Current Visit: Yes Status: Acute Code(s): Z78.9 - OTHER SPECIFIED HEALTH STATUS SNOMED Code(s): 568713690
--- NOTE | 2016-12-12 05:15 | DS ---
DISCHARGE SUMMARY: DATE OF ADMISSION: 12/10/16 DATE OF DISCHARGE: 12/11/16 PRIMARY CARE PROVIDER: Prosper Holbrook MD PRINCIPAL DIAGNOSES: 1. Possible GI bleed. 2. Chronic anemia. 3. Hyperkalemia. SECONDARY DIAGNOSES: 1. Hypertension. 2. Hyperlipidemia 3. Chronic hypoxic respiratory failure secondary to O2 dependent chronic obstructive pulmonary disease. 4. Chronic kidney disease, stage 3. 5. Obstructive sleep apnea. 6. Peripheral vascular disease. DISCHARGE MEDICATIONS: 1. Metoprolol XL 100 mg p.o. daily. 2. Ventolin 2 puffs inhaled q.4 hours p.r.n. shortness of breath 3. Plavix 75 mg p.o. daily. 4. Vitamin B12 1000 mcg p.o. daily. 5. Spiriva 1 puff inhaled daily. 6. Singulair 10 mg p.o. daily. 7. Ferrex 150 mg p.o. daily. 8. DuoNeb 1 inhaled q.4 hours p.r.n. shortness of breath. 9. Symbicort 160/4.5 one puff inhaled twice daily. 10. Gabapentin 100 mg p.o. q.h.s. 11. Lovastatin 20 mg p.o. daily. 12. Irbesartan 300 mg p.o. daily; hold until seen by PCP. 13. Aspirin 81 mg p.o. daily. HOSPITAL COURSE: Ms. Lambert is a 71-year-old female, who presented to the emergency room on 12/10/16 after she was contacted by her primary care provider' s office stating that her Hemoccult cards came back positive. The patient was referred to the emergency room for evaluation. The patient was admitted for concerns of possible upper GI bleed. She was started on IV Protonix. The patient's hemoglobin, however, in the emergency room was relatively stable compared to her baseline; however, she did slightly drift down to a low of 8.5. The patient was in consultation by Dr. Lloyd, who performed upper endoscopy on 12/10/16. No significant findings other than a small hiatal hernia were noted at that time. The patient did not receive any blood transfusions during this hospitalization. She will need to follow up with her primary care provider and get a colonoscopy arranged perhaps sooner than what is already scheduled for January. Of note, in discussing the patient's eating history recently, it became clear that she was eating a significant amount of melon as recommended by Dr. Elizalde. Dr. Lloyd alerted to me the fact that melon can cause a false positive on the Hemoccult cards. As it is not completely clear if the patient is bleeding at this time, perhaps this is the cause of the positive Hemoccult cards. On admission, the patient was also found to be markedly hyperkalemic. The etiology of her hyperkalemia is not completely clear. Perhaps this is from significant amount of fruit each day versus GI bleed. The patient was treated initially with calcium gluconate, IV insulin and dextrose and Kayexalate. With this, her potassium level has now trended down to the normal range. I am continuing to hold her ARB as her blood pressure is under good control without this medication and this can elevate the potassium level. She will need to follow up with her primary care provider to determine if the irbesartan should be added back. DICTATION ENDS ABRUPTLY HERE [id number]/[facility] #: [id number] [place]
== END 2016-12-11 12:00 | disposition home or self-care (01) ==
LOC: ED 21:55 → MEDTELE 12-10 01:38
PROVIDERS: ADMIT Pediatrics; ATTEND Hospitalist
DX: D64.89 Other specified anemias (principal); E87.5 Hyperkalemia; I12.9 Hypertensive chronic kidney disease with stage 1 through stage 4 chronic kidney disease, or unspecified chronic kidney disease; I36.1 Nonrheumatic tricuspid (valve) insufficiency; N18.3 Chronic kidney disease, stage 3 (moderate); E78.5 Hyperlipidemia, unspecified; J44.9 Chronic obstructive pulmonary disease, unspecified; J96.11 Chronic respiratory failure with hypoxia; Z99.81 Dependence on supplemental oxygen; Z79.01 Long term (current) use of anticoagulants; R74.8 Abnormal levels of other serum enzymes; K21.9 Gastro-esophageal reflux disease without esophagitis; K29.70 Gastritis, unspecified, without bleeding; G47.33 Obstructive sleep apnea (adult) (pediatric); I73.9 Peripheral vascular disease, unspecified; F17.210 Nicotine dependence, cigarettes, uncomplicated
CPT/HCPCS: 36415; 71020; 80048; 80051; 80053; 80061; 82272; 84484; 85014; 85018; 85025; 85027; 85610; 85730; 86850; 86900; 86901; 93005; 93306; 94640; 94760; 96361; 96365; 96375; 99283; A9270-GY; C8929; G0378; J0610; J2250

== ENCOUNTER 2017-02-05 11:21 | Inpatient (IN) | payer MEDICARE ==
[2017-02-05] MEDS ORDERED: Albuterol/Ipratropium NEB.SOL* Albuterol 2.5 MG/Ipratropium 0.5 MG 3 ML INH ONE ×2 (11:36→11:37)
[2017-02-05] MEDS ORDERED: methylPREDNISolone 125 MG* 2 ML VIAL IV ONE (11:37)
--- NOTE | 2017-02-05 12:02 | RAD ---
Indication: Shortness of breath. Single frontal view of the chest performed at 1139 hours was reviewed. Comparison is made with previous exam dated December 10, 2016. No mediastinal shift is noted. Heart is of normal size and configuration. Lung dunlap appear clear. IMPRESSION: NO ACTIVE CARDIOPULMONARY DISEASE IS NOTED.
[2017-02-05 12:13] LABS: PCO2 Arterial 71 mmHg (35-45)
[2017-02-05] MEDS ORDERED: Albuterol 2.5 MG/3 ML NEB.SOL* (0.083%) INH ONE (12:15)
[2017-02-05 12:25] LABS: Albumin 3.6 g/dL (3.2-5.2); C Reactive Protein 2.9 mg/L (< 5.00); Calcium 9.1 mg/dL (8.6-10.3); EGFR African American 52.5 (>60); EGFR Non-African American 40.9 (>60); Globulin 3.5 g/dL (2-4); Magnesium 1.9 mg/dL (1.9-2.7); Potassium 4.9 mmol/L (3.5-5.0); Total Bilirubin 0.3 mg/dL (0.2-1.0); Total Protein 7.1 g/dL (6.4-8.9)
[2017-02-05] MEDS ORDERED: Albuterol/Ipratropium NEB.SOL* Albuterol 2.5 MG/Ipratropium 0.5 MG 3 ML ONE (12:25)
[2017-02-05 12:32] LABS: Hematocrit 30 % (35-47); Mean Corpuscular HGB Conc 30 g/dl (31-36); Mean Corpuscular Hemoglobin 28 pg (27-31); Mean Corpuscular Volume 91 fL (80-97); Mean Platelet Volume 10 um3 (7.4-10.4); Red Blood Count 3.25 10^6/ul (4.0-5.4); Red Cell Distribution Width 14 % (10.5-15); White Blood Count 15.2 10^3/ul (3.5-10.8)
[2017-02-05] MEDS ORDERED: Azithromycin IV(*) 500 MG in NS 0.9% 250 ML* 250 ML IVPB ONE (12:37)
[2017-02-05] MEDS ORDERED: cefTRIAXone(*) 1 GM in NS 0.9% 50 ML* 50 ML IVPB ONE (12:37)
[2017-02-05 12:57] LABS: TSH (Thyroid Stimulating Horm) 2.49 mcIU/mL (0.34-5.60)
[2017-02-05] MEDS ORDERED: Acetaminophen TAB* 325 MG PO PRN (13:06)
[2017-02-05] MEDS ORDERED: NS 0.9% 1000 ML* 1,000 ML IV SCH (13:15)
[2017-02-05] MEDS ORDERED: Iodixanol* (CONTRAST) 320 MG/ML 100 ML SDV IV ONE (13:35)
[2017-02-05] MEDS ORDERED: Albuterol/Ipratropium NEB.SOL* Albuterol 2.5 MG/Ipratropium 0.5 MG 3 ML INH SCH (14:00)
--- NOTE | 2017-02-05 14:26 | RAD ---
INDICATION: Shortness of breath. COMPARISON: Comparison is made with a prior CT of the chest from October 18, 2015 and prior chest x-ray study from February 05, 2017. TECHNIQUE: A CT angiogram of the chest was performed with intravenous following intravenous injection of 72 ml of Visipaque 320 nonionic contrast. Contiguous axial sections were obtained from the lung apices through the lung bases. Images were reconstructed in the coronal and sagittal planes. FINDINGS: There is relatively homogeneous opacification of the pulmonary arteries. No intraluminal filling defect or pulmonary embolism is seen. The heart is within normal limits in size. There is a small pericardial effusion present. The thoracic aorta is normal in caliber and demonstrates homogeneous contrast opacification. There is moderate calcific plaque present. No significant enlarged mediastinal or hilar lymph nodes are seen. There is moderate centrilobular emphysematous change. There are scattered reticular nodular and patchy alveolar infiltrates present in both upper and lower lobes most consistent with pneumonia. No pleural effusion is seen. There is a small 8 x 6 mm nodular density present in the right middle lobe. This is seen in retrospect on the prior study and appears slightly increased in size previously measuring 6 x 4 mm in size. This is best seen on axial image #26 of 57 No significant focal osseous abnormality is seen. IMPRESSION: 1. NO EVIDENCE FOR PULMONARY EMBOLISM. 2. BILATERAL INFILTRATES MOST CONSISTENT WITH PNEUMONIA. 3. SMALL PERICARDIAL EFFUSION. 4. SMALL RIGHT MIDDLE LOBE PULMONARY NODULE. RECOMMEND A PET CT STUDY FOR FURTHER EVALUATION.
--- NOTE | 2017-02-05 15:11 | ED ---
Demetris You Benjamin, scribed for Kong Ortiz MD on 02/05/17 at 1141 . Shortness of Breath - HPI Summary HPI Summary: 71yo female brought in for having severe SOB. Pt has hx of chronic SOB, but this morning when her daughter visited to check on her at 0830, pts SOB was so severe that she couldnt getout of the car. Pt states that it feels similar to her COPD exacerbation attack. Pt denies fever. - History of Current Complaint Chief Complaint: EDShortnessOfBreath Hx Obtained From: Family/Antique Finisher Hx From Patient Unobtainable Due To: Other - severe SOB Onset/Duration: Sudden Onset, Lasting Hours, Still Present Timing: Constant Current Severity: Moderate Dyspnea At: Rest Aggrevating Factors: Nothing Alleviating Factors: Nothing Associated Signs & Symptoms: Negative - Allergy/Home Medications Allergies/Adverse Reactions: Allergies Allergy/AdvReac Type Severity Reaction Status Date / Time No Known Allergies Allergy Verified 12/09/16 21:59 Home Medications: Home Medications Albuterol HFA INHALER* [Ventolin HFA Inhaler*] 2 puff INH Q4H PRN 02/05/17 [ History Confirmed 02/05/17] Albuterol/Ipratropium NEB.ANY* [Duoneb (Albuterol 2.5 MG/Ipratropium 0.5 MG)] 1 neb INH Q4H PRN 02/05/17 [History Confirmed 02/05/17] Clopidogrel TAB* [Plavix TAB*] 75 mg PO DAILY 02/05/17 [History Confirmed ] Cyanocobalamin TAB* [Vitamin B12 TAB*] 1,000 mcg PO DAILY 02/05/17 [History Confirmed 02/05/17] Irbesartan (NF) [Avapro (NF)] 300 mg PO DAILY 02/05/17 [History Confirmed ] Lovastatin(NF) [Mevacor(NF)] 20 mg PO DAILY 02/05/17 [History Confirmed 02/05/17 ] Montelukast Sodium TAB* [Singulair TAB*] 10 mg PO DAILY 02/05/17 [History Confirmed 02/05/17] Polysaccharide Iron Complex [Ferrex 150] 150 mg PO DAILY 02/05/17 [History Confirmed 02/05/17] Tiotropium CAP.INH* [Spiriva CAP.INH*] 1 cap.inh INH DAILY 02/05/17 [History Confirmed 02/05/17] PMH/Surg Hx/FS Hx/Imm Hx Endocrine/Hematology History: Denies: Hx Diabetes Cardiovascular History: Reports: Hx Hypercholesterolemia, Hx Hypertension - CONTROLLED WITH MED Denies: Hx Angina, Hx Coronary Artery Disease, Hx Myocardial Infarction, Hx Pacemaker/ICD, Hx Valvular Heart Disease Respiratory History: Reports: Hx Chronic Obstructive Pulmonary Disease (COPD) Denies: Hx Asthma History: Reports: Other Problems/Disorders - chronic renal insufficiency Musculoskeletal History: Reports: Hx Arthritis - LOWER BACK Sensory History: Reports: Hx Contacts or Glasses - reading Denies: Hx Hearing Aid Opthamlomology History: Reports: Hx Contacts or Glasses - reading Psychiatric History: Denies: Hx Panic Disorder - Cancer History Hx Chemotherapy: No Hx Radiation Therapy: No - Surgical History Surgery Procedure, Year, and Place: CAROTID ARTERY STENT 2010 AT [facility]; lap hysterectomy at [facility] [place] Hx Anesthesia Reactions: No Infectious Disease History: Denies: Traveled Outside the [place] in Last 30 Days - Family History Known Family History: Positive: Other - POS: [place], throat - Social History Occupation: Retired Lives: Alone Alcohol Use: None Substance Use Type: Reports: None Smoking Status (MU): Heavy Every Day Tobacco Smoker Type: Cigarettes Amount Used/How Often: 1 PPD Length of Time of Smoking/Using Tobacco: 40 YRS. Have You Smoked in the Last Year: Yes Review of Systems Constitutional: Negative Negative: Fever Eyes: Negative ENT: Negative Cardiovascular: Negative Negative: Palpitations, Chest Pain Positive: Shortness Of Breath. Negative: Cough Gastrointestinal: Negative Genitourinary: Negative Musculoskeletal: Negative Skin: Negative Neurological: Negative Psychological: Normal All Other Systems Reviewed And Are Negative: Yes Physical Exam Triage Information Reviewed: Yes Vital Signs On Initial Exam: Initial Vitals Temp Pulse Resp BP Pulse Ox 98.7 F 116 30 162/107 66 02/05/17 11:27 02/05/17 11:27 02/05/17 11:27 02/05/17 11:27 02/05/17 11:27 Vital Signs Reviewed: Yes Appearance: Positive: Well-Appearing, Well-Nourished, Pain Distress - severe respiratory distress Skin: Positive: Warm, Skin Color Reflects Adequate Perfusion, Dry Head/Face: Positive: Normal Head/Face Inspection Eyes: Positive: Normal ENT: Positive: Normal ENT inspection, Hearing grossly normal Neck: Positive: Supple, Nontender Respiratory/Lung Sounds: Positive: Other - very little air movement, pt is only able to speak 2-3 words Cardiovascular: Positive: RRR, Pulses are Symmetrical in both Upper and Lower Extremities Abdomen Description: Positive: Nontender, Soft Bowel Sounds: Positive: Present Musculoskeletal: Positive: Strength/ROM Intact Neurological: Positive: Sensory/Motor Intact, Alert, Oriented to Person Place, Time Psychiatric: Positive: Affect/Mood Appropriate Diagnostics - Vital Signs Vital Signs Temp Pulse Resp BP Pulse Ox 02/05/17 11:27 98.7 F 116 30 162/107 66 - Laboratory Lab Results: Lab Results 02/05/17 02/05/17 02/05/17 Range/Units 11:56 11:56 11:56 WBC (3.5-10.8) 10^3/ul RBC (4.0-5.4) 10^6/ul Hgb (12.0-16.0) g/dl Hct (35-47) % MCV (80-97) fL MCH (27-31) pg MCHC (31-36) g/dl RDW (10.5-15) % Plt Count (150-450) 10^3/ul MPV (7.4-10.4) um3 Neut % (Auto) (38-83) % Lymph % (Auto) (25-47) % [place] % (Auto) (1-9) % Eos % (Auto) (0-6) % Baso % (Auto) (0-2) % Absolute Neuts (auto) (1.5-7.7) 10^3/ul Absolute Lymphs (auto) (1.0-4.8) 10^3/ul Absolute Monos (auto) (0-0.8) 10^3/ul Absolute Eos (auto) (0-0.6) 10^3/ul Absolute Basos (auto) (0-0.2) 10^3/ul Absolute Nucleated RBC 10^3/ul Nucleated RBC % INR (Anticoag Therapy) 0.93 (0.89-1.11) APTT 29.7 (26.0-36.3) seconds D-Dimer, Quantitative 381 H (Less Than 230) ng/mL ABG pH (7.35-7.45) ABG pCO2 (35-45) mmHg ABG pO2 (80-100) mmHg ABG HCO3 (19-31) mmol/L ABG O2 Saturation (95-98) % ABG Base Excess (-2.0-2.0) Sodium 138 (133-145) mmol/L Potassium 4.9 (3.5-5.0) mmol/L Chloride 101 (101-111) mmol/L Carbon Dioxide 29 (22-32) mmol/L Anion Gap 8 (2-11) mmol/L BUN 18 (6-24) mg/dL Creatinine 1.29 H (0.51-0.95) mg/dL Est GFR ( Amer) 52.5 (>60) Est GFR (Non-Af Amer) 40.9 (>60) BUN/Creatinine Ratio 14.0 (8-20) Glucose 216 H (70-100) mg/dL Lactic Acid 1.9 (0.5-2.0) mmol/L Calcium 9.1 (8.6-10.3) mg/dL Magnesium 1.9 (1.9-2.7) mg/dL Total Bilirubin 0.30 (0.2-1.0) mg/dL AST 13 (13-39) U/L ALT 10 (7-52) U/L Alkaline Phosphatase 116 H (34-104) U/L Total Creatine Kinase 88 (10-223) U/L CK-MB (CK-2) 4.1 (0.6-6.3) ng/mL Troponin I 0.00 (<0.04) ng/mL C-Reactive Protein 2.90 (< 5.00) mg/L B-Natriuretic Peptide ( - 100) pg/mL Total Protein 7.1 (6.4-8.9) g/dL Albumin 3.6 (3.2-5.2) g/dL Globulin 3.5 (2-4) g/dL Albumin/Globulin Ratio 1.0 (1-3) Lipase 11 (11.0-82.0) U/L TSH 2.49 (0.34-5.60) mcIU/mL 02/05/17 02/05/17 02/05/17 Range/Units 11:56 11:56 12:02 WBC 15.2 H (3.5-10.8) 10^3/ul RBC 3.25 L (4.0-5.4) 10^6/ul Hgb 9.0 L (12.0-16.0) g/dl Hct 30 L (35-47) % MCV 91 (80-97) fL MCH 28 (27-31) pg MCHC 30 L (31-36) g/dl RDW 14 (10.5-15) % Plt Count 281 (150-450) 10^3/ul MPV 10 (7.4-10.4) um3 Neut % (Auto) 77.9 (38-83) % Lymph % (Auto) 12.0 L (25-47) % [place] % (Auto) 6.4 (1-9) % Eos % (Auto) 2.7 (0-6) % Baso % (Auto) 1.0 (0-2) % Absolute Neuts (auto) 11.9 H (1.5-7.7) 10^3/ul Absolute Lymphs (auto) 1.8 (1.0-4.8) 10^3/ul Absolute Monos (auto) 1.0 H (0-0.8) 10^3/ul Absolute Eos (auto) 0.4 (0-0.6) 10^3/ul Absolute Basos (auto) 0.1 (0-0.2) 10^3/ul Absolute Nucleated RBC 0 10^3/ul Nucleated RBC % 0 INR (Anticoag Therapy) (0.89-1.11) APTT (26.0-36.3) seconds D-Dimer, Quantitative (Less Than 230) ng/mL ABG pH 7.24 L (7.35-7.45) ABG pCO2 71 H (35-45) mmHg ABG pO2 201 H (80-100) mmHg ABG HCO3 26.5 (19-31) mmol/L ABG O2 Saturation 99.2 H (95-98) % ABG Base Excess 2.0 (-2.0-2.0) Sodium (133-145) mmol/L Potassium (3.5-5.0) mmol/L Chloride (101-111) mmol/L Carbon Dioxide (22-32) mmol/L Anion Gap (2-11) mmol/L BUN (6-24) mg/dL Creatinine (0.51-0.95) mg/dL Est GFR ( Amer) (>60) Est GFR (Non-Af Amer) (>60) BUN/Creatinine Ratio (8-20) Glucose (70-100) mg/dL Lactic Acid (0.5-2.0) mmol/L Calcium (8.6-10.3) mg/dL Magnesium (1.9-2.7) mg/dL Total Bilirubin (0.2-1.0) mg/dL AST (13-39) U/L ALT (7-52) U/L Alkaline Phosphatase (34-104) U/L Total Creatine Kinase (10-223) U/L CK-MB (CK-2) (0.6-6.3) ng/mL Troponin I (<0.04) ng/mL C-Reactive Protein (< 5.00) mg/L B-Natriuretic Peptide 284 H ( - 100) pg/mL Total Protein (6.4-8.9) g/dL Albumin (3.2-5.2) g/dL Globulin (2-4) g/dL Albumin/Globulin Ratio (1-3) Lipase (11.0-82.0) U/L TSH (0.34-5.60) mcIU/mL Result Diagrams: 02/05/17 11:56 02/05/17 11:56 Lab Statement: Any lab studies that have been ordered have been reviewed, and results considered in the medical decision making process. - Radiology CXR Xray Interpretation: No Acute Changes Radiology Interpretation Completed By: Radiologist - ED physician has reviewed this radiology report and agrees. - EKG 1208 Cardiac Rate: Tachycardia - 100bpm EKG Rhythm: Sinus Tachycardia ST Segment: Non-Specific Ectopy: None Course/Dx - Course Course Of Treatment: Reviewed pts medication and allergy lists. High blood pressure noted. IMPROVED IN ED. ADMIT HOSPITALIST. - Diagnoses Provider Diagnoses: COPD exacerbation, Pneumonia - Critical Care Time Critical Care Time: 30-74 min Discharge - Discharge Plan Condition: Guarded Disposition: ADMITTED TO [facility] documentation as recorded by the Demetris brower Benjamin accurately reflects the service I personally performed and the decisions made by , Kong Ortiz MD.
[2017-02-05] MEDS: predniSONE TAB* 20 MG PO SCH (15:25)
[2017-02-05] MEDS: Heparin VIAL(*) 5000 UNITS/ML VIAL (FIVE THOUSAND) SUBCUT SCH ×2 (15:26→21:30)
--- NOTE | 2017-02-05 15:47 | HP ---
CC: Dr. Holbrook * HISTORY AND PHYSICAL: DATE OF ADMISSION: 02/05/17 PRIMARY CARE PROVIDER: Dr. Holbrook. ATTENDING PHYSICIAN WHILE IN THE HOSPITAL: Kelly Goldberg DO * (report dictated by Sathya Borjas NP). CHIEF COMPLAINT: Shortness of breath. HISTORY OF PRESENT ILLNESS: Mrs. Lambert is a 71-year-old female patient who carries a history of COPD. She came in today, was stating that she went to her doctor's appointment. Initially she had been feeling fine all week and then she smoked a cigarette. She states that she does not smoke as often as she used to, she smokes 1 to 2 cigarettes a month and after the doctor's appointment , she got profoundly short of breath. She could not catch her breath. She denied any recent trips or travel. No surgery recently. No calf pain, leg pain , or swelling. She does state that she thinks maybe she has been more short of breath in the last few days, but today it was much worse. She said it did come on pretty sudden. She denied having any chest pain. She denied having any abdominal pain. No recent nausea or vomiting. No recent sick contacts. She denies having any URI symptoms such as sore throat, rhinorrhea, or congestion. She came into the ER, it was noted that she was fairly hypoxic. Her sats were in the 70s. She required a non-rebreather nebulizer treatment and this again initially helped, but because of the worsening shortness of breath and the fact that she was requiring more O2, we were asked to evaluate for admission. PAST MEDICAL HISTORY: Significant for: 1. Hypertension. 2. Hyperlipidemia. 3. COPD. 4. CKD. 5. VEENA. 6. PVD. 7. Presumed GI bleed in the past. 8. History of CVA. PAST SURGICAL HISTORY: 1. She had a carotid endarterectomy on the right side. 2. Hysterectomy. HOME MEDICATIONS: According to the old list and our chart, and we are trying to update this now, includes; 1. Ventolin 2 puffs inhale every 4 hours. 2. Spiriva 1 capsule daily. 3. Singulair 10 mg p.o. daily. 4. Metoprolol XL 100 mg daily. 5. Lovastatin 20 mg a day. 6. Avapro 300 mg daily. 7. Gabapentin 100 mg p.o. daily. 8. Iron 150mg po daily 9. Plavix 75 mg daily. 10. Symbicort 1 puff inhaled b.i.d. 11. B12, 1000 mcg p.o. daily. 12. Aspirin 81 mg daily. 13. DuoNeb 1 neb as directed. ALLERGIES TO MEDICATIONS: Include no known drug allergies. FAMILY HISTORY: Her mother from accidental . Father had a history of aneurysm. SOCIAL HISTORY: She is a smoker and has been smoking her entire life. She does not drink alcohol. Surrogate decision maker is her daughter, Joann. REVIEW OF SYSTEMS: There is no documented fever. She denied having any significant weight change. There was no double vision. She denies having any ear discharge. No rhinorrhea. No sore throat. No thyroid enlargement. There is no chest pain. There is dyspnea on exertion. There is no abdominal pain. No nausea. No vomiting. No dysuria. There is no frequency. No seizure. No loss of consciousness. No pruritus and no skin ulcerations. Review of 14 systems completed, all others negative. PHYSICAL EXAMINATION GENERAL: At this time, Mrs. Lambert is a 71-year-old female patient. She appears to be well nourished, well developed. She does not appear to be in any acute distress. VITAL SIGNS: Blood pressure 151/65, pulse 97, respirations 20, O2 sat 96%, temperature 97.3. HEENT: Head is atraumatic and normocephalic. Eyes: EOMs are intact. Sclerae anicteric and not pale. Throat: Oral mucosa appears to be dry. No oropharyngeal erythema. NECK: Supple. LUNGS: Diminished in the bases. She had wheezes in the upper lobes. She had equal diaphragmatic expansion. HEART: Sounds S1 and S2. Regular rate and rhythm. No murmurs, rubs, or gallops. ABDOMEN: Soft, flat, nontender. Bowel sounds present. EXTREMITIES: Pulses were +2 throughout. She is able to move all 4 extremities with 5/5 strength. NEUROLOGIC: She is awake, alert, oriented x3. Tongue is midline. Outbound Sales Executive were equal. No gross focal deficits. SKIN: Intact. LABORATORY DATA/DIAGNOSTIC STUDIES: The labs today revealed a WBC of 15.2, RBC of 3.25, hemoglobin 9.0, hematocrit 30, platelet count of 281,000. INR 0.93 , PTT 29.7. D-dimer 381. ABG; pH 7.24, pCO2 of 71, pO2 of 201, bicarbonate 26. Sodium is 138, potassium 4.9, chloride 101, bicarbonate 29, BUN 18, creatinine 1.29, glucose 216, lactic 1.9, calcium 9.1, total bilirubin 0.3, magnesium 1.9. AST 13, ALT 10, alkaline phosphatase 116. Troponin 0. BNP 284. TSH pending. Lipase was normal at 11. She had an EKG obtained today, which revealed sinus tachycardia, rate of 100. No ST elevations or T-wave inversions were noted. It was reviewed with the previous EKG and appears to be similar. She did have a chest x-ray obtained today, impression: No active cardiopulmonary disease noted. Old medical records reviewed. ASSESSMENT AND PLAN: Mrs. Lambert is a 71-year-old female patient coming into the ER today with complaints of shortness of breath. It got much worse today suddenly. She does also state that it may have been getting worse for the last couple of days. She will be admitted under observation status for: 1. Chronic obstructive pulmonary disease exacerbation. At this point, I do think she deserves a CTA as her D-dimer is mildly elevated and she is tachycardic. It could just be related to chronic obstructive pulmonary disease exacerbation, but I would like to check the CTA to rule out pulmonary embolism as her symptoms were rather sudden. She had the elevated white count, so I am going to put her on antibiotics check legionella antigen and strep pneumoniae antigen. We will get a flu swab as well. In addition to this, we will send off blood cultures. We are going to put her on nebs and steroids as well. We will put her on Dulera and I have ordered a flutter valve for pulmonary toileting. 2. Hypertension. We will continue meds as prescribed. 3. Hyperlipidemia. Continue her statin. 4. History of chronic kidney disease. We will follow the creatinine. I am giving her fluids in the setting of the recent CTA. 5. Obstructive sleep apnea. She does not wear a mask. 6. Peripheral vascular disease. We will continue statin and antiplatelet therapy. 7. History of GI bleed. Again, H and H is stable. We will monitor. 8. History of cerebrovascular accident. Continue with secondary prevention. 9. DVT prophylaxis. She is high risk. She will be placed on heparin subcu. 10. Code status. She is full code. 11. Fluids, electrolytes, and nutrition. She can have a regular diet. TIME SPENT: Time spent on the admission was 60 minutes, greater than half the time was spent [id number] with the patient obtaining my history and physical; the other half time was spent going over the plan of care with the patient and implementing plan of care. I did discuss the plan of care with my attending, Dr. Goldberg; she is in agreement. SATHYA BORJAS NP [id number]/CPS #: [id number] [place]
[2017-02-05] MEDS: Albuterol 2.5 MG/3 ML NEB.SOL* (0.083%) INH PRN (16:35)
[2017-02-05] MEDS: Albuterol/Ipratropium NEB.SOL* Albuterol 2.5 MG/Ipratropium 0.5 MG 3 ML INH SCH ×2 (19:18→23:23)
[2017-02-05] MEDS: Mometasone/Formoter 200/5 MDI INH SCH (19:21)
[2017-02-05] MEDS: Ferrous Sulfate TAB* 325 MG PO SCH (20:56)
[2017-02-05] MEDS ORDERED: Gabapentin CAP(*) 100 MG PO SCH (21:00)
[2017-02-05] MEDS: Gabapentin CAP(*) 100 MG PO SCH (21:34)
[2017-02-05] MEDS: CMCS: Melatonin (NF) 3 MG TAB PO SCH (21:35)
[2017-02-06] MEDS ORDERED: LORazepam INJ* 2 MG/ML 1 ML VIAL ONE (00:49)
[2017-02-06] MEDS ORDERED: Propofol* 10 MG/ML 20 ML BTL IV PUSH ONE (01:16)
[2017-02-06] MEDS ORDERED: Propofol* 100 ML ONE (01:17)
[2017-02-06] MEDS ORDERED: Propofol* 100 ML IV SCH (02:00)
[2017-02-06] MEDS: Albuterol/Ipratropium NEB.SOL* Albuterol 2.5 MG/Ipratropium 0.5 MG 3 ML INH SCH ×4 (02:17→12:01)
[2017-02-06 02:19] LABS: FIO2 50; Resp Rate 18
[2017-02-06] MEDS ORDERED: Furosemide IV* 10 MG/ML VIAL (40 MG) IV SLOW PU ONE (02:21)
[2017-02-06 02:30] LABS: PCO2 Arterial 84 mmHg (35-45)
[2017-02-06] MEDS ORDERED: Sodium Bicarbonate 8.4%* 50 ML SYRINGE IV ONE (02:49)
[2017-02-06 02:51] LABS: BUN/Creatinine Ratio 16.1 (8-20); Calcium 8.6 mg/dL (8.6-10.3); EGFR African American 38.7 (>60); EGFR Non-African American 30.1 (>60); Potassium 5.7 mmol/L (3.5-5.0)
[2017-02-06 02:59] LABS: Troponin I 0.04 ng/mL (<0.04)
[2017-02-06] MEDS ORDERED: Sodium Polystyrene ORAL.SOL* 15 GM/60 ML BTL NG TUBE ONE (03:27)
--- NOTE | 2017-02-06 03:43 | PN ---
Progress Note - Progress Note Date of Service: 02/06/17 Note: Cross cover: Called to see patient for increasing oxygen demand. When I arrived patient was sitting on edge of bed being supported by nursing. She was unresponsive with agonal breathing. Placed back in bed and ventilated with bag valve mask with subsequent SatO2 80s-100%. Pressures 140/80s. No evidence of seizure activity however patient was not responding to painful stimuli so ativan 2mg IV was given to evaluate for and treat any potential seizure activity. Dr. Llanos arrived to bedside and intubated patient with administration etomidate and succinylcholine. Pt transferred to ICU. EKG with STD ant-laterally. CXR with well placed ET tube and diffuse alveolar and interstitial edema. CT head to r/o hemorrhage wnl Lasix given for pulmonary edema with brisk diuresis. 2 amps bicarb given in setting of profound acidemia also expected to improve with improved ventilation. Kayexalate given for hyperkalemia Daughter contacted and updated on events. critical care time 60 minutes
[2017-02-06 03:47] LABS: Hematocrit 26 % (35-47); Hemoglobin 7.9 g/dl (12.0-16.0); Mean Corpuscular HGB Conc 31 g/dl (31-36); Mean Corpuscular Hemoglobin 28 pg (27-31); Mean Corpuscular Volume 91 fL (80-97); Mean Platelet Volume 9 um3 (7.4-10.4); Red Blood Count 2.79 10^6/ul (4.0-5.4); Red Cell Distribution Width 14 % (10.5-15); White Blood Count 20.2 10^3/ul (3.5-10.8)
[2017-02-06 05:34] LABS: Urine Bacteria 3+ (Absent); Urine Bilirubin Negative (Negative); Urine Glucose Negative (Negative); Urine Nitrite Negative (Negative)
[2017-02-06 05:39] LABS: Hematocrit 25 % (35-47); Hemoglobin 7.9 g/dl (12.0-16.0); Mean Corpuscular HGB Conc 32 g/dl (31-36); Mean Corpuscular Hemoglobin 28 pg (27-31); Mean Corpuscular Volume 90 fL (80-97); Mean Platelet Volume 9 um3 (7.4-10.4); Red Cell Distribution Width 14 % (10.5-15); White Blood Count 20.5 10^3/ul (3.5-10.8)
[2017-02-06] MEDS: Heparin VIAL(*) 5000 UNITS/ML VIAL (FIVE THOUSAND) SUBCUT SCH ×3 (05:51→21:23)
[2017-02-06 05:58] LABS: BUN/Creatinine Ratio 16.5 (8-20); Calcium 8.6 mg/dL (8.6-10.3); EGFR African American 36.7 (>60); EGFR Non-African American 28.5 (>60); Potassium 4.9 mmol/L (3.5-5.0)
[2017-02-06] MEDS ORDERED: Furosemide IV* 10 MG/ML 2 ML VIAL (20 MG) IV SLOW PU ONE (06:35)
[2017-02-06 06:45] LABS: FIO2 50; PCO2 Arterial 53 mmHg (35-45); Resp Rate 24
--- NOTE | 2017-02-06 08:07 | RAD ---
INDICATION: Respiratory failure COMPARISON: Most recent comparison noncontrast CT of the brain is dated November 18, 2009 TECHNIQUE: Contiguous axial sections of the brain were obtained from the skull base to the vertex without contrast. Evaluation is limited by motion artifact. FINDINGS: The ventricles, cisterns and sulci are within normal limits. There is stable encephalomalacia involving the right frontal lobe relative to the prior CT examination. Elsewhere the barraza-white matter differentiation appears to be adequately maintained and there is no sulcal effacement. No significant focal abnormality or mass effect is present. There is no definite intracranial hemorrhage. IMPRESSION: Stable encephalomalacia involving the right frontal lobe on this highly limited CT of the brain due to motion artifact.
[2017-02-06] MEDS ORDERED: Influenza VAC *QUAD* 2017-18* 0.5 ML SYRINGE IM ONE (09:00)
[2017-02-06] MEDS: predniSONE TAB* 20 MG PO SCH (09:44)
[2017-02-06] MEDS: Clopidogrel TAB* 75 MG PO SCH (09:44)
[2017-02-06] MEDS: Ferrous Sulfate TAB* 325 MG PO SCH ×2 (09:44→21:23)
[2017-02-06] MEDS: Atorvastatin* 10 MG TAB PO SCH (09:45)
[2017-02-06] MEDS: Montelukast Sodium TAB* 10 MG PO SCH (09:45)
[2017-02-06] MEDS: Aspirin EC Low Dose* 81 MG TAB.EC PO SCH (09:45)
[2017-02-06] MEDS: Losartan TAB* 25 MG PO SCH (11:42)
[2017-02-06] MEDS: Metoprolol Succinate XL TAB* 100 MG PO SCH (11:43)
[2017-02-06] MEDS: Mometasone/Formoter 200/5 MDI INH SCH ×2 (12:01→19:14)
[2017-02-06] MEDS ORDERED: Spiriva Inhaler DEVICE* 1 EACH DEVICE SCH (13:00)
--- NOTE | 2017-02-06 14:31 | ECHO ---
Patient: JYOIT MONTES [facility] Rec#: [id number] : 1945 Date: 02/06/2017 Age: 71y Height: 152.4 cm / 60.0 in Weight: 74.84 kg / 164.9 lbs Sex: F BSA: 1.72 Room#: ICU 10 Admit Date#: 02/06/2017 Type: Inpatient Referring: Richard Kc Reading: Gregory Atkinson MD Pipe Welder: Yeesnia Marcum RDCS,RDMS CC: Prosper Holbrook MD Transthoracic Echocardiogram Indication: Pulmonary Edema, Respiratory Failure BP: 95/51 HR: 98 Rhythm: NSR Findings History: COPD, CKD, CVA, HTN, HLD, VEENA, smoker Technical Comments: The study is technically limited due to the patient's history of COPD. Completed Left Ventricle: The left ventricular chamber size is normal. Moderate concentric left ventricular hypertrophy is observed. The left ventricle appears hyperdynamic. The estimated ejection fraction is greater than 65%. Abnormal left ventricular diastolic filling is observed, consistent with impaired relaxation. Left Atrium: The left atrium is slightly dilated. Right Ventricle: The right ventricle wall thickness is mildly increased. The right ventricular cavity size is normal. The right ventricular global systolic function is hyperdynamic. Right Atrium: The right atrial cavity size is normal. Aortic Valve: The aortic valve structure is not well visualized. There is no evidence of aortic regurgitation. There is no evidence of aortic stenosis. Mitral Valve: There is mitral annular calcification. There is no evidence of mitral regurgitation. There is no evidence of mitral stenosis. Tricuspid Valve: The tricuspid valve leaflets are normal. There is trace tricuspid regurgitation. Pulmonic Valve: The pulmonic valve structure is not well visualized. Pericardium: There is no significant pericardial effusion. A pericardial fat pad is visualized. Aorta: The aorta is not well visualized. Pulmonary Artery: The main pulmonary artery is not well visualized. Venous: The inferior vena cava appears normal in size. There is a greater than 50% respiratory change in the inferior vena cava dimension. Conclusions The study is technically limited due to the patient's history of COPD. Poor images for any accurate analysis. Moderate concentric left ventricular hypertrophy is observed. The left ventricle appears hyperdynamic. The estimated ejection fraction is greater than 65%. Abnormal left ventricular diastolic filling is observed, consistent with impaired relaxation. No obvious significant valvular pathology with trace tricuspid regurgitation, however poor quality images preclude accurate assessment. Measurements Name Value Normal Range RVIDd (AP) 2D 2 cm (0.9 - 2.6) RVDdMajor (2D) 2.4 cm (2.2 - 4.4) RAd ISD 4CH 4.7 cm (3.4 - 4.9) RA (A4C)W 3.7 cm (2.9 - 4.6) IVSd (2D) 1.4 cm (0.6 - 1) LVPWd (2D) 1.2 cm (0.6 - 1) LVIDd (2D) 4 cm (3.6 - 5.4) LVIDs (2D) 2.4 cm - LV FS (2D) 40 % (25 - 45) LA dimension (AP) 2D 3.9 cm (2.3 - 3.8) LAd ISD 4CH 5.5 cm (2.9 - 5.3) LA ISD 4CH W 4.1 cm (2.5 - 4.5) Name Value Normal Range LA ESV SP 4CH (A/L) 57.4 ml - LA ESV SP 2CH (A/L) 41.72 ml - LA ESV BP (A/L) 49.67 ml - LA ESV BP (A/L) index 29 ml/m2 - LA ESV SP 4CH (MOD) 52.52 ml - LA ESV SP 2CH (MOD) 39.6 ml - Name Value Normal Range MV E-wave Vmax 1.1 m/sec - MV deceleration time 81 msec - MV A-wave Vmax 1.5 m/sec - MV E:A ratio 0.7 ratio - LV septal e' Vmax 0.05 m/sec - LV lateral e' Vmax 0.05 m/sec - LV E:e' septal ratio 22 ratio - LV E:e' lateral ratio 22 ratio - Name Value Normal Range AV Vmax 1.7 m/sec - AV VTI 33.1 cm - AV peak gradient 11.2 mmHg - AV mean gradient 6 mmHg - LVOT Vmax 1.1 m/sec - LVOT VTI 26 cm - LVOT peak gradient 5 mmHg - LVOT mean gradient 2.3 mmHg - Name Value Normal Range MV Vmax 1.7 m/sec - MV VTI 31 cm - MV peak gradient 11.7 mmHg - MV mean gradient 4.9 mmHg - MV PHT 39 msec - MVA (PHT) 5.6 cm2 - Name Value Normal Range TR Vmax 3.3 m/sec - TR peak gradient 44 mmHg - RAP 8 mmHg - RVSP 52 mmHg - IVC diameter 2.1 cm - Name Value Normal Range PV Vmax 0.8 m/sec - PV peak gradient 2.6 mmHg -
[2017-02-06] MEDS: cefTRIAXone VIAL(*) 1,000 MG in NS 0.9% 50 ML* 50 ML IVPB SCH (14:35)
[2017-02-06] MEDS: Tiotropium CAP.INH* CAP.INH/18 MCG (USE ORDER SET !) INH SCH (14:45)
[2017-02-06] MEDS: Albuterol HFA INHALER* 8 gm MDI INH SCH ×3 (14:51→22:49)
[2017-02-06] MEDS: Azithromycin IV(*) 500 MG in NS 0.9% 250 ML* 250 ML IVPB SCH (15:11)
[2017-02-06] MEDS: Gabapentin CAP(*) 100 MG PO SCH (21:23)
[2017-02-06] MEDS: CMCS: Melatonin (NF) 3 MG TAB PO SCH (21:23)
[2017-02-07] MEDS: Albuterol 2.5 MG/3 ML NEB.SOL* (0.083%) INH PRN ×2 (01:44→08:06)
--- NOTE | 2017-02-07 01:47 | EEG ---
ELECTROENCEPHALOGRAPHY: DATE OF STUDY: 02/06/17 - ROOM #ICU-10 PATIENT OF: Dr. Amin. HISTORY: A 71-year-old woman evaluated for COPD exacerbation, then last night with acute agonal breathing and unresponsiveness, so she was intubated and has been maintained on propofol drip. Other medications include metoprolol, Dulera, Singulair, prednisone, ceftriaxone , azithromycin, heparin, melatonin, Ventolin, furosemide, gabapentin, losartan, Plavix, atorvastatin, aspirin, and DuoNeb. INTERPRETATION: With the patient intubated, background cerebral activity consists of admixed 11 beta activity, alpha activity to 11 Hz, and theta activity. At times, the patient's thrashes or has whole body tremors, it is not associated with change in background. There is some muscle movement artifact. There is some left temporal sharp activity, which probably is artifactual, but cannot completely rule out this arising from her left temporal lobe. No clear-cut epileptiform potentials or major asymmetries of background are noted. CLINICAL IMPRESSION: This EEG with the patient sedated on propofol and intubated shows no clear-cut epileptiform potentials and there is background slowing and beta activity in keeping with the patient's sedation. There is some muscle movement artifact noted, but no clear-cut epileptiform potentials. There is some activity in the left temporal area, which may be related to artifact, but underlying ischemia or structural lesion cannot be entirely excluded. [id number]/CPS #: [id number] MTDD
[2017-02-07] MEDS: Albuterol HFA INHALER* 8 gm MDI INH SCH ×6 (03:12→22:31)
[2017-02-07] MEDS: Heparin VIAL(*) 5000 UNITS/ML VIAL (FIVE THOUSAND) SUBCUT SCH ×3 (05:44→20:56)
[2017-02-07 06:12] LABS: Hematocrit 23 % (35-47); Hemoglobin 7.3 g/dl (12.0-16.0); Mean Corpuscular HGB Conc 31 g/dl (31-36); Mean Corpuscular Hemoglobin 28 pg (27-31); Mean Corpuscular Volume 90 fL (80-97); Mean Platelet Volume 9 um3 (7.4-10.4); Red Blood Count 2.59 10^6/ul (4.0-5.4); Red Cell Distribution Width 14 % (10.5-15); White Blood Count 21.6 10^3/ul (3.5-10.8)
[2017-02-07 06:27] LABS: BUN/Creatinine Ratio 21.8 (8-20); Calcium 8.3 mg/dL (8.6-10.3); EGFR African American 38.2 (>60); EGFR Non-African American 29.7 (>60); Magnesium 2.2 mg/dL (1.9-2.7); Phosphorus 2.3 mg/dL (2.5-5.0); Potassium 3.7 mmol/L (3.5-5.0)
[2017-02-07] MEDS: predniSONE TAB* 20 MG PO SCH (07:49)
[2017-02-07] MEDS: Metoprolol Succinate XL TAB* 100 MG PO SCH (07:52)
[2017-02-07] MEDS: Ferrous Sulfate TAB* 325 MG PO SCH ×2 (07:52→20:56)
[2017-02-07] MEDS: Losartan TAB* 25 MG PO SCH (07:53)
[2017-02-07] MEDS: Aspirin EC Low Dose* 81 MG TAB.EC PO SCH (07:54)
[2017-02-07] MEDS: Montelukast Sodium TAB* 10 MG PO SCH (07:54)
[2017-02-07] MEDS: Clopidogrel TAB* 75 MG PO SCH (07:54)
[2017-02-07] MEDS: Atorvastatin* 10 MG TAB PO SCH (07:55)
[2017-02-07] MEDS: Mometasone/Formoter 200/5 MDI INH SCH ×2 (08:03→19:56)
[2017-02-07] MEDS: Tiotropium CAP.INH* CAP.INH/18 MCG (USE ORDER SET !) INH SCH (08:03)
--- NOTE | 2017-02-07 10:50 | PN ---
Critical Care Services: Critical care progress note Date: 02/08/2016, Time: 10:45 am Pt seen and examined at bedside. Reports feeling better , SOB is improved, no acute events o/n Vital Signs: Temp Pulse Resp BP SpO2 FiO2 99.1 F 88 20 128/62 100 50 02/07/17 10:37 02/07/17 10:37 02/07/17 10:37 02/07/17 10:37 02/07/17 10:37 02/06 12:01 Physical Exam: Gen: Pt lying in bed in NAD HEENT: PERRLA, No JVD Lungs: Dimished a/e b/l, scattered end expiratory wheeze present b/l, no accessory muscle usage CVS: S1, S2+, tachycardic Abd: Soft, BS+, NT, ND Ext: dependent edema present, normal ROM Integumentary: No rash Neuro: Awake, alert, orientedx3, no focal defecits Fluid Balance (Past 24 Hours): I= 1829 O= 900 Net :929 Intake & Output 02/05/17 02/06/17 02/07/17 02/08/17 06:59 06:59 06:59 06:59 Intake Total 92 1829.4 240 Output Total 650 900 Balance -558 929.4 240 Weight 165 lb 12.602 oz 169 lb 8.568 oz Intake: IV Fluids 2 417 NS (0.9%) 2 417 IVPB 110 NS (0.9%) 110 Medicated IV 60 82.4 CC - Propofol/Diprivan 60 82.4 Oral 1220 240 NG Tube Irrigate Amount 30 Output: NG Tube Drainage Amount 100 Brownlee 550 900 Labs: Laboratory Results - last 24 hr 02/07/17 02/07/17 05:58 05:58 WBC 21.6 H RBC 2.59 L Hgb 7.3 L Hct 23 L MCV 90 MCH 28 MCHC 31 RDW 14 Plt Count 210 MPV 9 Sodium 144 Potassium 3.7 Chloride 105 Carbon Dioxide 36 H Anion Gap 3 BUN 37 H Creatinine 1.70 H Est GFR ( Amer) 38.2 Est GFR (Non-Af Amer) 29.7 BUN/Creatinine Ratio 21.8 H Glucose 177 H Calcium 8.3 L Phosphorus 2.3 L Magnesium 2.2 Studies: CTA 02/05/17 was personally reviewed- No PE, patchy reticulonodular opacity noted b/l, 8mm nodule in RML which is slightly increased in size in comparison with prior CT from October 2015, extensive emphysematous changes and basal atlectasis Nutrition: Oral feeds Impression: 71 y o f with h/o O2 dependant COPD, severe per GOLD criteria with FEV1 of 0.6 L (last PFT 2014) a/w worsening SOB, required intubation for AMS secondary to acute on chronic hypercapnic and hypoxic resp failure s/p extubation 02/06/17 1.Acute on chronic hypercapnic and hypoxic resp failure improving 2.Acute diastolic CHF, improving 3.CAP 4.Acute COPD exacerbation 5.VEENA not being treated Plan: Respiratory: Severe COPD with acute exacerbation secondary to PNA, improving, FiO2 requirements coming down. She is currently back to her home requirement. She has sleep apnea, declined CPAP in the past, and is willing to try now. Will set up auto CPAP tonight. She is candidate for Trilogy given severe COPD, recurrent admissions and hypercapnic resp failure Cardiovascular: Hemodynamically stable, tachycardic with movement, with demand ischemia and positive troponins. c/w beta georgette and Plavix Neurological: Alert, awake, oriented, able to protect airway. Gastro intestinal: Continue to regular diet, will d/c IVF Renal: Good urine output, d/c brownlee Endocrine: Blood sugars slightly elevated due to prednisone, monitor closely for now, no need for insulin Musculoskeletal/Integumentary: No rash, ulcers, will order PT Infectious: Being treated for PNA, on Rocephin, Zithromax, day#3, to complete 7 day course of abx. Haem/Onc: Leucocytosis secondary to prednisone versus PNA. Has h/o anemia which is stable currently. Noted to have slight increase in RML nodule from 6 mm to 8 mm compared to scan from October 2015. Will need PET scan as out pt. Psycho/Social: Son is HCP Supportive and preventative care as ordered VTE prophylaxis: Heparin sq Brownlee catheter not needed, to d/cfoley Disposition: Patient to be transferred to regular med/surg floor under Dr Goldberg `s service Code status: Full code Case was discussed and patient was signed out to Dr Goldberg
[2017-02-07] MEDS: cefTRIAXone VIAL(*) 1,000 MG in NS 0.9% 50 ML* 50 ML IVPB SCH (13:24)
[2017-02-07] MEDS: Azithromycin IV(*) 500 MG in NS 0.9% 250 ML* 250 ML IVPB SCH (15:12)
[2017-02-07] MEDS: Gabapentin CAP(*) 100 MG PO SCH (20:56)
[2017-02-07] MEDS: CMCS: Melatonin (NF) 3 MG TAB PO SCH (20:58)
[2017-02-08] MEDS: Albuterol HFA INHALER* 8 gm MDI INH SCH ×6 (03:18→23:20)
[2017-02-08] MEDS: Heparin VIAL(*) 5000 UNITS/ML VIAL (FIVE THOUSAND) SUBCUT SCH ×3 (05:45→21:24)
[2017-02-08] MEDS: Mometasone/Formoter 200/5 MDI INH SCH ×2 (07:38→20:21)
[2017-02-08] MEDS: Tiotropium CAP.INH* CAP.INH/18 MCG (USE ORDER SET !) INH SCH (07:38)
--- NOTE | 2017-02-08 08:30 | PN ---
Progress Note - Progress Note Date of Service: 02/08/17 - Pulm f/u Note: Pt seen and examined at bedside. Pt reports improvement in breathing however getting SOB with minimal exertion. Minimal cough. Used CPAP last night for 4 hrs , denies any issues with mask or machine Active Medications Generic Name Dose Route Start Last Admin Trade Name Freq PRN Reason Stop Dose Admin Acetaminophen 650 mg 02/05/17 13:06 02/06/17 09:44 Tylenol Tab* PO 650 mg Q4H PRN Administration FEVER/PAIN Albuterol 2.5 mg 02/05/17 13:06 02/07/17 08:06 Ventolin 2.5 Mg/3 Ml Neb.Olamide* INH 2.5 mg Q4H PRN Administration SOB/WHEEZING Albuterol 2 puff 02/06/17 15:00 02/08/17 07:38 Ventolin Hfa Inhaler* INH 2 puff [id number] AWAKE KEISHA Administration Aspirin 81 mg 02/06/17 09:00 02/07/17 07:54 Aspirin Ec Low Dose* PO 81 mg DAILY KEISHA Administration Atorvastatin Calcium 10 mg 02/06/17 09:00 02/07/17 07:55 Lipitor* PO 10 mg DAILY KEISHA Administration Clopidogrel Bisulfate 75 mg 02/06/17 09:00 02/07/17 07:54 Plavix Tab* PO 75 mg DAILY KEISHA Administration Device 1 each 02/06/17 13:00 Tiotropium Inhaler Device* .SEE ORDER .USE w/ SPIRIVA CAPS KEISHA Ferrous Sulfate 325 mg 02/05/17 21:00 02/07/17 20:56 Ferrous Sulfate Tab* PO 325 mg BID KEISHA Administration Gabapentin 200 mg 02/05/17 22:00 02/07/17 20:56 Neurontin Cap(*) PO 200 mg BEDTIME KEISHA Administration Heparin Sodium (Porcine) 5,000 units 02/05/17 14:00 02/08/17 05:45 Heparin Vial(*) SUBCUT 5,000 units Q8HR KEISHA Administration Heparin Sodium (Porcine) 1 ml 02/06/17 18:00 02/08/17 05:45 Heparin Flush Picc/Ml/Cvc(*) FLUSH 1 ml 0600,1800 KEISHA Administration Protocol Ceftriaxone Sodium 1,000 mg/ 50 mls @ 200 mls/hr 02/06/17 13:00 02/07/17 13: 24 Sodium Chloride IVPB 200 mls/hr Q24H KEISHA Administration Azithromycin 500 mg/ Sodium 250 mls @ 250 mls/hr 02/06/17 14:00 02/07/17 15: 12 Chloride IVPB 250 mls/hr Q24H KEISHA Administration Losartan Potassium 100 mg 02/06/17 09:00 02/07/17 07:53 Cozaar Tab* PO 100 mg DAILY KEISHA Administration Melatonin 3 mg 02/05/17 22:00 02/07/17 20:58 Melatonin (Nf) PO 3 mg BEDTIME KEISHA Administration Metoprolol Succinate 100 mg 02/06/17 09:00 02/07/17 07:52 Toprol Xl Tab* PO 100 mg DAILY KEISHA Administration Mometasone Furoate/Formoterol Fumar 2 puff 02/05/17 21:00 02/08/17 07:38 Dulera 200/5 Mdi* INH 2 puff BID KEISHA Administration Montelukast Sodium 10 mg 02/06/17 09:00 02/07/17 07:54 Singulair Tab* PO 10 mg DAILY KEISHA Administration Prednisone 60 mg 02/05/17 14:00 02/07/17 07:49 Deltasone Tab* PO 60 mg DAILY KEISHA Administration Tiotropium [place] 1 cap 02/06/17 09:00 02/08/17 07:38 Spiriva Cap.Inh* INH 1 cap DAILY KEISHA Administration Vital Signs Temp Pulse Resp BP Pulse Ox 98.2 F 79 24 155/67 99 02/08/17 07:39 02/08/17 07:39 02/08/17 08:00 02/08/17 07:39 02/08/17 07:39 Gen: Pt lying in bed in NAD, alert, awake HEENT: PERRLA, No JVD Lungs: Dimished a/e b/l, scattered end expiratory wheeze present b/l CVS: S1, S2+, tachycardic Abd: Soft, BS+, NT,Obese Ext: dependent edema present, normal ROM Integumentary: No rash Neuro: Awake, alert, orientedx3, no focal defecits Labs: No new labs Microbiology: Sputum cx- Yeast CTA 02/05/17- No PE, patchy reticulonodular opacity noted b/l, 8mm nodule in RML which is slightly increased in size in comparison with prior CT from October 2015, extensive emphysematous changes and basal atlectasis Impression/Recommendations: 71 y o f with h/o O2 dependant COPD, severe per GOLD criteria with FEV1 of 0.6 L (last PFT 2014) a/w worsening SOB, required intubation for AMS secondary to acute on chronic hypercapnic and hypoxic resp failure s/p extubation 02/06/17 Severe COPD with acute exacerbation secondary to PNA, improving, FiO2 requirements down to her baseline need of 4L at home. c/w Nebs, long acting bronchodilators She has sleep apnea, declined CPAP in the past, has used for 4 hrs last night, willing to continue to use Will set up auto CPAP. She is candidate for Trilogy given severe COPD, recurrent admissions and hypercapnic resp failure C/w current dose of prednisone, will not taper yet Slight increase in RML nodule from 6 mm to 8 mm compared to scan from October 2015. Will need PET scan as out pt. PT/OT
[2017-02-08 09:11] LABS: Add Diff/Slide Review? Slide Review Added; Comments Flag Yes; Hematocrit 26 % (35-47); Hemoglobin 8.1 g/dl (12.0-16.0); Mean Corpuscular HGB Conc 31 g/dl (31-36); Mean Corpuscular Hemoglobin 28 pg (27-31); Mean Corpuscular Volume 91 fL (80-97); Mean Platelet Volume 9 um3 (7.4-10.4); Red Blood Count 2.89 10^6/ul (4.0-5.4); Red Cell Distribution Width 15 % (10.5-15); White Blood Count 17.9 10^3/ul (3.5-10.8)
--- NOTE | 2017-02-08 09:14 | PN ---
Subjective Date of Service: 02/08/17 Interval History: This is a 71 yo female admitted with acute resp failure secondary to CAP and COPD exacerbation resulting in intubation s/p extubation 02/06. She has been transferred tot he medical floor. She is back to her baseline O2 requirements of 4L. Patient reports that she is overall feeling better. No dyspnea at rest, but minimal exertion causes significant symptoms. Denies CP, abd pain, n/v. Objective Active Medications: Acetaminophen (Tylenol Tab*) 650 mg PO Q4H PRN PRN Reason: FEVER/PAIN Last Admin: 02/06/17 09:44 Dose: 650 mg Albuterol (Ventolin 2.5 Mg/3 Ml Neb.Olamide*) 2.5 mg INH Q4H PRN PRN Reason: SOB/WHEEZING Last Admin: 02/07/17 08:06 Dose: 2.5 mg Albuterol (Ventolin Hfa Inhaler*) 2 puff INH [id number] AWAKE [facility] Last Admin: 02/08/17 07:38 Dose: 2 puff Aspirin (Aspirin Ec Low Dose*) 81 mg PO DAILY [facility] Last Admin: 02/07/17 07:54 Dose: 81 mg Atorvastatin Calcium (Lipitor*) 10 mg PO DAILY [facility] Last Admin: 02/07/17 07:55 Dose: 10 mg Clopidogrel Bisulfate (Plavix Tab*) 75 mg PO DAILY [facility] Last Admin: 02/07/17 07:54 Dose: 75 mg Device (Tiotropium Inhaler Device*) 1 each .SEE ORDER .USE w/ SPIRIVA CAPS [facility] Ferrous Sulfate (Ferrous Sulfate Tab*) 325 mg PO BID [facility] Last Admin: 02/07/17 20:56 Dose: 325 mg Gabapentin (Neurontin Cap(*)) 200 mg PO BEDTIME [facility] Last Admin: 02/07/17 20:56 Dose: 200 mg Heparin Sodium (Porcine) (Heparin Vial(*)) 5,000 units SUBCUT Q8HR [facility] Last Admin: 02/08/17 05:45 Dose: 5,000 units Heparin Sodium (Porcine) (Heparin Flush Picc/Ml/Cvc(*)) 1 ml FLUSH 0600,1800 KEISHA PRN Reason: Protocol Last Admin: 02/08/17 05:45 Dose: 1 ml Ceftriaxone Sodium 1,000 mg/ (Sodium Chloride) 50 mls @ 200 mls/hr IVPB Q24H [facility] Last Admin: 02/07/17 13:24 Dose: 200 mls/hr Azithromycin 500 mg/ Sodium (Chloride) 250 mls @ 250 mls/hr IVPB Q24H [facility] Last Admin: 02/07/17 15:12 Dose: 250 mls/hr Losartan Potassium (Cozaar Tab*) 100 mg PO DAILY [facility] Last Admin: 02/07/17 07:53 Dose: 100 mg Melatonin (Melatonin (Nf)) 3 mg PO BEDTIME [facility] Last Admin: 02/07/17 20:58 Dose: 3 mg Metoprolol Succinate (Toprol Xl Tab*) 100 mg PO DAILY [facility] Last Admin: 02/07/17 07:52 Dose: 100 mg Mometasone Furoate/Formoterol Fumar (Dulera 200/5 Mdi*) 2 puff INH BID [facility] Last Admin: 02/08/17 07:38 Dose: 2 puff Montelukast Sodium (Singulair Tab*) 10 mg PO DAILY [facility] Last Admin: 02/07/17 07:54 Dose: 10 mg Prednisone (Deltasone Tab*) 60 mg PO DAILY [facility] Last Admin: 02/07/17 07:49 Dose: 60 mg Tiotropium [place] (Spiriva Cap.Inh*) 1 cap INH DAILY [facility] Last Admin: 02/08/17 07:38 Dose: 1 cap Vital Signs: Temp Pulse Resp BP Pulse Ox 98.2 F 79 24 155/67 99 02/08/17 07:39 02/08/17 07:39 02/08/17 08:00 02/08/17 07:39 02/08/17 07:39 Oxygen Devices in Use Now: Nasal Cannula Appearance: Elderly female who appears chronically ill but in NAD. She is sitting at bedside reading the morning newspaper Respiratory: Symmetrical Chest Expansion and Respiratory Effort, - - rhonchi and wheezing, especially in L posterior lung [place]lap Cardiovascular: NL Sounds; No Murmurs; No JVD, RRR Extremities: No Edema Skin: No Rash or Ulcers Neurological: Alert and Oriented x 3 Result Diagrams: 02/07/17 05:58 02/07/17 05:58 Additional Lab and Data: . Assess/Plan/Problems-Billing Assessment: This is a 71 yo female with severe COPD, HTN, HLD, CKD, VEENA, PVD and prior CVA who was admitted with acute respiratory failure secondary to CAP and COPD exacerbation. - Patient Problems (1) Acute respiratory failure Comment: Secondary to COPD exacerbation and CAP s/p extubation 02/06 (2) CAP (community acquired pneumonia) Comment: Cont Ceftriaxone and azithromycin Day 4 abx (3) Acute on chronic diastolic heart failure Comment: Resolved Appears euvolemic on exam (4) COPD, severe Comment: Baseline O2 requirements of 4L via NC (5) VEENA (obstructive sleep apnea) Comment: Previously untreated, tolerated auto CPAP last night Dr Funk recommending Triology at discharge (6) Stage III chronic kidney disease Comment: Stage III-IV Cr near baseline (7) Lung nodule Comment: Requires outpt PET (8) HTN (hypertension) Comment: Mild HTN, likely due to corticosteroids Cont ARB and BB (9) HLD (hyperlipidemia) Comment: Continue statin (10) Full code status (11) DVT prophylaxis Comment: Heparin SQ Status and Disposition: Inpatient. Anticipate additional 2-3 d LOS
[2017-02-08 09:20] LABS: BUN/Creatinine Ratio 21.7 (8-20); Calcium 8.5 mg/dL (8.6-10.3); EGFR African American 46.7 (>60); EGFR Non-African American 36.3 (>60); Potassium 3.7 mmol/L (3.5-5.0)
[2017-02-08] MEDS: Albuterol 2.5 MG/3 ML NEB.SOL* (0.083%) INH PRN (10:08)
[2017-02-08] MEDS: Ferrous Sulfate TAB* 325 MG PO SCH ×2 (10:54→21:23)
[2017-02-08] MEDS: Losartan TAB* 25 MG PO SCH (10:54)
[2017-02-08] MEDS: Clopidogrel TAB* 75 MG PO SCH (10:54)
[2017-02-08] MEDS: Metoprolol Succinate XL TAB* 100 MG PO SCH (10:54)
[2017-02-08] MEDS: Aspirin EC Low Dose* 81 MG TAB.EC PO SCH (10:54)
[2017-02-08] MEDS: predniSONE TAB* 20 MG PO SCH (10:54)
[2017-02-08] MEDS: Montelukast Sodium TAB* 10 MG PO SCH (10:55)
[2017-02-08] MEDS: Atorvastatin* 10 MG TAB PO SCH (10:55)
[2017-02-08] MEDS: Albuterol/Ipratropium NEB.SOL* Albuterol 2.5 MG/Ipratropium 0.5 MG 3 ML INH PRN (13:19)
[2017-02-08] MEDS ORDERED: methylPREDNISolone 125 MG* 2 ML VIAL IV ONE (13:35)
[2017-02-08 13:56] LABS: FIO2 4
[2017-02-08] MEDS: cefTRIAXone VIAL(*) 1,000 MG in NS 0.9% 50 ML* 50 ML IVPB SCH (14:02)
[2017-02-08 14:05] LABS: PCO2 Arterial 55 mmHg (35-45)
[2017-02-08] MEDS: Azithromycin IV(*) 500 MG in NS 0.9% 250 ML* 250 ML IVPB SCH (15:21)
--- NOTE | 2017-02-08 15:30 | RAD ---
INDICATION: Exacerbation of COPD COMPARISON: Chest x-ray dated February 05, 2017 TECHNIQUE: Single AP portable view of the chest was obtained. FINDINGS: Image quality is compromised due to the relative inferiority of a portable chest x-ray. There is a persistent [id number] degree of cardiomegaly but the heart appears slightly smaller and better well-defined than the most recent chest x-ray. There is mild engorgement of the pulmonary vasculature but this has reduced since the prior chest x-ray. There is density along the lateral aspect of the right hemidiaphragm which could represent focal pneumonia or atelectasis. IMPRESSION: Overall improvement improvement in imaging features associated with cardiogenic pulmonary edema as described above. There is focal density at the lateral aspect of the right lung base which could represent focal pneumonia or atelectasis.
[2017-02-08] MEDS: CMCS: Melatonin (NF) 3 MG TAB PO SCH (21:22)
[2017-02-08] MEDS: Gabapentin CAP(*) 100 MG PO SCH (21:22)
[2017-02-09] MEDS: Albuterol HFA INHALER* 8 gm MDI INH SCH ×6 (03:56→23:08)
[2017-02-09] MEDS: Heparin VIAL(*) 5000 UNITS/ML VIAL (FIVE THOUSAND) SUBCUT SCH ×3 (05:09→21:34)
[2017-02-09 05:32] LABS: Hematocrit 23 % (35-47); Hemoglobin 7.1 g/dl (12.0-16.0); Mean Corpuscular HGB Conc 32 g/dl (31-36); Mean Corpuscular Hemoglobin 29 pg (27-31); Mean Corpuscular Volume 90 fL (80-97); Mean Platelet Volume 10 um3 (7.4-10.4); Red Blood Count 2.49 10^6/ul (4.0-5.4); Red Cell Distribution Width 14 % (10.5-15); White Blood Count 10.8 10^3/ul (3.5-10.8)
[2017-02-09 05:33] LABS: Add Diff/Slide Review? Slide Review Added; Comments Flag Yes
[2017-02-09 05:46] LABS: BUN/Creatinine Ratio 22.3 (8-20); Calcium 8.4 mg/dL (8.6-10.3); EGFR African American 48.2 (>60); EGFR Non-African American 37.5 (>60); Potassium 4.6 mmol/L (3.5-5.0)
[2017-02-09 06:02] LABS: Basophilic Stippling 1+; Hypochromasia 2+; Polychromasia 1+; Stomatocytes 1+
[2017-02-09] MEDS: Mometasone/Formoter 200/5 MDI INH SCH ×2 (07:25→19:42)
[2017-02-09] MEDS: Tiotropium CAP.INH* CAP.INH/18 MCG (USE ORDER SET !) INH SCH (07:25)
[2017-02-09] MEDS: predniSONE TAB* 20 MG PO SCH (08:51)
[2017-02-09] MEDS: Ferrous Sulfate TAB* 325 MG PO SCH ×2 (08:51→21:35)
[2017-02-09] MEDS: Clopidogrel TAB* 75 MG PO SCH (08:51)
[2017-02-09] MEDS: Montelukast Sodium TAB* 10 MG PO SCH (08:51)
[2017-02-09] MEDS: Atorvastatin* 10 MG TAB PO SCH (08:51)
[2017-02-09] MEDS: Metoprolol Succinate XL TAB* 100 MG PO SCH (08:51)
[2017-02-09] MEDS: Losartan TAB* 25 MG PO SCH (08:51)
[2017-02-09] MEDS: Aspirin EC Low Dose* 81 MG TAB.EC PO SCH (08:51)
--- NOTE | 2017-02-09 10:16 | PN ---
Subjective Date of Service: 02/09/17 Interval History: Patient reports no changes overnight. No dyspnea at rest, but minimal exertion causes significant dyspnea. Still has a productive cough. She was reluctant to use the commode this am and preferred the bedpan. Objective Active Medications: Acetaminophen (Tylenol Tab*) 650 mg PO Q4H PRN PRN Reason: FEVER/PAIN Last Admin: 02/06/17 09:44 Dose: 650 mg Albuterol (Ventolin 2.5 Mg/3 Ml Neb.Olamide*) 2.5 mg INH Q4H PRN PRN Reason: SOB/WHEEZING Last Admin: 02/08/17 10:08 Dose: 2.5 mg Albuterol (Ventolin Hfa Inhaler*) 2 puff INH [id number] AWAKE [facility] Last Admin: 02/09/17 07:25 Dose: 2 puff Albuterol/Ipratropium (Duoneb (Albuterol 2.5 Mg/Ipratropium 0.5 Mg)) 1 neb INH Q4H PRN PRN Reason: SOB/WHEEZING Last Admin: 02/08/17 13:19 Dose: 1 neb Aspirin (Aspirin Ec Low Dose*) 81 mg PO DAILY [facility] Last Admin: 02/09/17 08:51 Dose: 81 mg Atorvastatin Calcium (Lipitor*) 10 mg PO DAILY [facility] Last Admin: 02/09/17 08:51 Dose: 10 mg Clopidogrel Bisulfate (Plavix Tab*) 75 mg PO DAILY [facility] Last Admin: 02/09/17 08:51 Dose: 75 mg Device (Tiotropium Inhaler Device*) 1 each .SEE ORDER .USE w/ SPIRIVA CAPS [facility] Ferrous Sulfate (Ferrous Sulfate Tab*) 325 mg PO BID [facility] Last Admin: 02/09/17 08:51 Dose: 325 mg Gabapentin (Neurontin Cap(*)) 200 mg PO BEDTIME [facility] Last Admin: 02/08/17 21:22 Dose: 200 mg Heparin Sodium (Porcine) (Heparin Vial(*)) 5,000 units SUBCUT Q8HR [facility] Last Admin: 02/09/17 05:09 Dose: 5,000 units Heparin Sodium (Porcine) (Heparin Flush Picc/Ml/Cvc(*)) 1 ml FLUSH 0600,1800 KEISHA PRN Reason: Protocol Last Admin: 02/09/17 05:09 Dose: 1 ml Ceftriaxone Sodium 1,000 mg/ (Sodium Chloride) 50 mls @ 200 mls/hr IVPB Q24H [facility] Last Admin: 02/08/17 14:02 Dose: 200 mls/hr Azithromycin 500 mg/ Sodium (Chloride) 250 mls @ 250 mls/hr IVPB Q24H KEISHA Last Admin: 02/08/17 15:21 Dose: 250 mls/hr Losartan Potassium (Cozaar Tab*) 100 mg PO DAILY [facility] Last Admin: 02/09/17 08:51 Dose: 100 mg Melatonin (Melatonin (Nf)) 3 mg PO BEDTIME KEISHA Last Admin: 02/08/17 21:22 Dose: 3 mg Metoprolol Succinate (Toprol Xl Tab*) 100 mg PO DAILY [facility] Last Admin: 02/09/17 08:51 Dose: 100 mg Mometasone Furoate/Formoterol Fumar (Dulera 200/5 Mdi*) 2 puff INH BID [facility] Last Admin: 02/09/17 07:25 Dose: 2 puff Montelukast Sodium (Singulair Tab*) 10 mg PO DAILY [facility] Last Admin: 02/09/17 08:51 Dose: 10 mg Prednisone (Deltasone Tab*) 60 mg PO DAILY [facility] Last Admin: 02/09/17 08:51 Dose: 60 mg Tiotropium [place] (Spiriva Cap.Inh*) 1 cap INH DAILY [facility] Last Admin: 02/09/17 07:25 Dose: 1 cap Vital Signs: Temp Pulse Resp BP Pulse Ox 98.3 F 74 22 143/58 94 02/09/17 07:26 02/09/17 07:28 02/09/17 08:00 02/09/17 07:26 02/09/17 07:28 Oxygen Devices in Use Now: Nasal Cannula Appearance: Chronically ill but comfortable appearing elderly female in NAD Respiratory: Symmetrical Chest Expansion and Respiratory Effort, - - diffuse wheezing noted Cardiovascular: NL Sounds; No Murmurs; No JVD, RRR Abdominal: NL Sounds; No Tenderness; No Distention Extremities: No Edema Skin: No Rash or Ulcers Neurological: Alert and Oriented x 3 Result Diagrams: 02/09/17 05:15 02/09/17 05:15 Additional Lab and Data: . Assess/Plan/Problems-Billing Assessment: This is a 71 yo female with severe COPD, HTN, HLD, CKD, VEENA, PVD and prior CVA who was admitted with acute respiratory failure secondary to CAP and COPD exacerbation. - Patient Problems (1) Acute respiratory failure Comment: Secondary to COPD exacerbation and CAP s/p extubation 02/06 Mild exacerbation yesterday, 02/08 but likely due to mucus plug and continuing to improve today cont abx, oral steroids and inhaled therapies (2) CAP (community acquired pneumonia) Comment: Cont Ceftriaxone and azithromycin Day 5 abx Noted yeast on sputum cx, discussed with pulm and felt to likely be a contaminant (3) Acute on chronic diastolic heart failure Comment: Resolved Appears euvolemic on exam (4) COPD, severe Comment: Baseline O2 requirements of 4L via [place] (5) VEENA (obstructive sleep apnea) Comment: Previously untreated, tolerated auto CPAP intermittently, but declined last night Dr Funk recommending Triology at discharge (6) Stage III chronic kidney disease Comment: Stage III-IV Cr near baseline (7) Lung nodule Comment: Requires outpt PET (8) HTN (hypertension) Comment: Mild HTN, likely due to corticosteroids Cont ARB and BB (9) HLD (hyperlipidemia) Comment: Continue statin (10) Full code status (11) DVT prophylaxis Comment: Heparin SQ Status and Disposition: Inpatient. Anticipate additional 2-3 d LOS. Patient is not interested in [facility], encouraged her to cont to work with PT and get to the chair and commode frequently
[2017-02-09] MEDS: cefTRIAXone VIAL(*) 1,000 MG in NS 0.9% 50 ML* 50 ML IVPB SCH (13:52)
[2017-02-09] MEDS: amLODIPine TAB* 5 MG PO SCH (14:41)
[2017-02-09] MEDS: Azithromycin IV(*) 500 MG in NS 0.9% 250 ML* 250 ML IVPB SCH (14:41)
--- NOTE | 2017-02-09 15:02 | PN ---
Progress Note - Progress Note Date of Service: 02/09/17 - Pulm f/u Note: Pt seen and examined at bedside. Pt was sitting up in chair, eating lunch. Had visitors in room. Pt reports improvement in breathing however getting SOB with minimal exertion. Denies significant cough. Declined CPAP last night Active Medications Generic Name Dose Route Start Last Admin Trade Name Freq PRN Reason Stop Dose Admin Acetaminophen 650 mg 02/05/17 13:06 02/06/17 09:44 Tylenol Tab* PO 650 mg Q4H PRN Administration FEVER/PAIN Albuterol 2.5 mg 02/05/17 13:06 02/08/17 10:08 Ventolin 2.5 Mg/3 Ml Neb.Olamide* INH 2.5 mg Q4H PRN Administration SOB/WHEEZING Albuterol 2 puff 02/06/17 15:00 02/09/17 14:44 Ventolin Hfa Inhaler* INH 2 puff [id number] AWAKE KEISHA Administration Albuterol/Ipratropium 1 neb 02/08/17 13:06 02/08/17 13:19 Duoneb (Albuterol 2.5 Mg/Ipratropium 0.5 Mg) INH 1 neb Q4H PRN Administration SOB/WHEEZING Amlodipine Besylate 5 mg 02/09/17 15:00 02/09/17 14:41 Norvasc Tab* PO 5 mg DAILY KEISHA Administration Aspirin 81 mg 02/06/17 09:00 02/09/17 08:51 Aspirin Ec Low Dose* PO 81 mg DAILY KEISHA Administration Atorvastatin Calcium 10 mg 02/06/17 09:00 02/09/17 08:51 Lipitor* PO 10 mg DAILY KEISHA Administration Clopidogrel Bisulfate 75 mg 02/06/17 09:00 02/09/17 08:51 Plavix Tab* PO 75 mg DAILY KEISHA Administration Device 1 each 02/06/17 13:00 Tiotropium Inhaler Device* .SEE ORDER .USE w/ SPIRIVA CAPS KEISHA Ferrous Sulfate 325 mg 02/05/17 21:00 02/09/17 08:51 Ferrous Sulfate Tab* PO 325 mg BID KEISHA Administration Gabapentin 200 mg 02/05/17 22:00 02/08/17 21:22 Neurontin Cap(*) PO 200 mg BEDTIME KEISHA Administration Heparin Sodium (Porcine) 5,000 units 02/05/17 14:00 02/09/17 13:52 Heparin Vial(*) SUBCUT 5,000 units Q8HR KEISHA Administration Heparin Sodium (Porcine) 1 ml 02/06/17 18:00 02/09/17 05:09 Heparin Flush Picc/Ml/Cvc(*) FLUSH 1 ml 0600,1800 KEISHA Administration Protocol Ceftriaxone Sodium 1,000 mg/ 50 mls @ 200 mls/hr 02/06/17 13:00 02/09/17 13: 52 Sodium Chloride IVPB 200 mls/hr Q24H KEISHA Administration Azithromycin 500 mg/ Sodium 250 mls @ 250 mls/hr 02/06/17 14:00 02/09/17 14: 41 Chloride IVPB 250 mls/hr Q24H KEISHA Administration Losartan Potassium 100 mg 02/06/17 09:00 02/09/17 08:51 Cozaar Tab* PO 100 mg DAILY KEISHA Administration Melatonin 3 mg 02/05/17 22:00 02/08/17 21:22 Melatonin (Nf) PO 3 mg BEDTIME KEISHA Administration Metoprolol Succinate 100 mg 02/06/17 09:00 02/09/17 08:51 Toprol Xl Tab* PO 100 mg DAILY KEISHA Administration Mometasone Furoate/Formoterol Fumar 2 puff 02/05/17 21:00 02/09/17 07:25 Dulera 200/5 Mdi* INH 2 puff BID KEISHA Administration Montelukast Sodium 10 mg 02/06/17 09:00 02/09/17 08:51 Singulair Tab* PO 10 mg DAILY KEISHA Administration Prednisone 60 mg 02/05/17 14:00 02/09/17 08:51 Deltasone Tab* PO 60 mg DAILY KEISHA Administration Tiotropium [place] 1 cap 02/06/17 09:00 02/09/17 07:25 Spiriva Cap.Inh* INH 1 cap DAILY KEISHA Administration Vital Signs Temp Pulse Resp BP Pulse Ox 98.6 F 58 18 180/67 97 02/09/17 11:26 02/09/17 14:45 02/09/17 14:45 02/09/17 14:33 02/09/17 14:45 Gen: Pt lying in bed in NAD, alert, awake HEENT: PERRLA, No JVD Lungs: Dimished a/e b/l, scattered end expiratory wheeze present b/l CVS: S1, S2+, tachycardic Abd: Soft, BS+, NT,Obese Ext: dependent edema present, normal ROM Integumentary: No rash Neuro: Awake, alert, orientedx3, no focal defecits Laboratory Results - last 24 hr 02/09/17 02/09/17 05:15 05:15 WBC 10.8 RBC 2.49 L Hgb 7.1 L Hct 23 L MCV 90 MCH 29 MCHC 32 RDW 14 Plt Count 174 MPV 10 Neut % (Auto) 87.1 H Lymph % (Auto) 7.6 L Nelson % (Auto) 5.0 Eos % (Auto) 0 Baso % (Auto) 0.3 Absolute Neuts (auto) 9.4 H Absolute Lymphs (auto) 0.8 L Absolute Monos (auto) 0.5 Absolute Eos (auto) 0 Absolute Basos (auto) 0 Absolute Nucleated RBC 0.01 Nucleated RBC % 0.1 Normal RBC Morphology Not Reportable Polychromasia 1+ Hypochromasia 2+ Basophilic Stippling 1+ Stomatocytes 1+ Sodium 141 Potassium 4.6 Chloride 105 Carbon Dioxide 34 H Anion Gap 2 BUN 31 H Creatinine 1.39 H Est GFR ( Amer) 48.2 Est GFR (Non-Af Amer) 37.5 BUN/Creatinine Ratio 22.3 H Glucose 152 H Calcium 8.4 L Microbiology: Sputum cx- Yeast CTA 02/05/17- No PE, patchy reticulonodular opacity noted b/l, 8mm nodule in RML which is slightly increased in size in comparison with prior CT from October 2015, extensive emphysematous changes and basal atlectasis Impression/Recommendations: 71 y o f with h/o O2 dependant COPD, severe per GOLD criteria with FEV1 of 0.6 L (last PFT 2014) a/w worsening SOB, required intubation for AMS secondary to acute on chronic hypercapnic and hypoxic resp failure s/p extubation 02/06/17, FiO2 requirements to 4L which is her baseline Severe COPD with acute exacerbation secondary to PNA, improving SOB has not improved much, pt declines to move She has not used her CPAP last night Doesnot want to use CPAP eventhough she didnot have difficulty when she used it Educated pt on concern for hypercapnia with COPD and VEENA c/w Nebs, long acting bronchodilators She is candidate for Trilogy given severe COPD, recurrent admissions and hypercapnic resp failure C/w current dose of prednisone, start taper tomorrow to 50 mg Slight increase in RML nodule from 6 mm to 8 mm compared to scan from October 2015. Will need PET scan as out pt. PT/OT
[2017-02-09] MEDS: Albuterol/Ipratropium NEB.SOL* Albuterol 2.5 MG/Ipratropium 0.5 MG 3 ML INH PRN (17:40)
[2017-02-09] MEDS: Gabapentin CAP(*) 100 MG PO SCH (21:34)
[2017-02-09] MEDS: CMCS: Melatonin (NF) 3 MG TAB PO SCH (21:34)
[2017-02-10] MEDS: Albuterol HFA INHALER* 8 gm MDI INH SCH ×6 (03:01→21:49)
[2017-02-10] MEDS: Heparin VIAL(*) 5000 UNITS/ML VIAL (FIVE THOUSAND) SUBCUT SCH ×3 (05:38→21:57)
[2017-02-10] MEDS: Clopidogrel TAB* 75 MG PO SCH (08:03)
[2017-02-10] MEDS: Ferrous Sulfate TAB* 325 MG PO SCH ×2 (08:03→21:57)
[2017-02-10] MEDS: Aspirin EC Low Dose* 81 MG TAB.EC PO SCH (08:03)
[2017-02-10] MEDS: Metoprolol Succinate XL TAB* 100 MG PO SCH (08:05)
[2017-02-10] MEDS: amLODIPine TAB* 5 MG PO SCH (08:08)
[2017-02-10] MEDS: Montelukast Sodium TAB* 10 MG PO SCH (08:08)
[2017-02-10] MEDS: Losartan TAB* 25 MG PO SCH (08:08)
[2017-02-10] MEDS: predniSONE TAB* 50 MG PO SCH (08:08)
[2017-02-10] MEDS: Atorvastatin* 10 MG TAB PO SCH (08:08)
[2017-02-10] MEDS: Tiotropium CAP.INH* CAP.INH/18 MCG (USE ORDER SET !) INH SCH (08:12)
[2017-02-10] MEDS: Mometasone/Formoter 200/5 MDI INH SCH ×2 (08:12→21:50)
--- NOTE | 2017-02-10 10:22 | RAD ---
INDICATION: COPD exasperation status post intubation. COMPARISON: Comparison is made with a prior chest x-ray study from February 05, 2017 from approximately 13 hours earlier. TECHNIQUE: A portable view of the chest was obtained. FINDINGS: The patient is status post intubation. The endotracheal tube projects over the midline. The catheter tip is located approximately 1 cm above the zachariah. Recommend repositioning. There is a nasogastric tube which projects over the midline. The catheter projects in the left upper quadrant. The catheter tip projects below the level of the film. The heart is mildly enlarged. There is diffuse prominence of the interstitial markings which appear new. No pleural effusion is seen. IMPRESSION: 1. FINDINGS MOST CONSISTENT WITH CONGESTIVE HEART FAILURE, LESS LIKELY PNEUMONIA, NEW. 2. ENDOTRACHEAL TUBE TIP LOW IN POSITION RECOMMEND REPOSITIONING.
[2017-02-10] MEDS: cefTRIAXone VIAL(*) 1,000 MG in NS 0.9% 50 ML* 50 ML IVPB SCH (12:46)
[2017-02-10] MEDS: Azithromycin IV(*) 500 MG in NS 0.9% 250 ML* 250 ML IVPB SCH (13:48)
--- NOTE | 2017-02-10 13:51 | PN ---
Subjective Date of Service: 02/10/17 Interval History: Patient reports some improvement in dyspnea today. She was able ambulate the the door of her room and back with PT today. It made her very winded, but was the most activity she has been able to accomplish. Denies any new symptoms. Objective Active Medications: Acetaminophen (Tylenol Tab*) 650 mg PO Q4H PRN PRN Reason: FEVER/PAIN Last Admin: 02/06/17 09:44 Dose: 650 mg Albuterol (Ventolin Hfa Inhaler*) 2 puff INH [id number] AWAKE [facility] Last Admin: 02/10/17 13:14 Dose: 2 puff Albuterol/Ipratropium (Duoneb (Albuterol 2.5 Mg/Ipratropium 0.5 Mg)) 1 neb INH Q4H PRN PRN Reason: SOB/WHEEZING Last Admin: 02/09/17 17:40 Dose: 1 neb Amlodipine Besylate (Norvasc Tab*) 5 mg PO DAILY [facility] Last Admin: 02/10/17 08:08 Dose: 5 mg Aspirin (Aspirin Ec Low Dose*) 81 mg PO DAILY [facility] Last Admin: 02/10/17 08:03 Dose: 81 mg Atorvastatin Calcium (Lipitor*) 10 mg PO DAILY [facility] Last Admin: 02/10/17 08:08 Dose: 10 mg Clopidogrel Bisulfate (Plavix Tab*) 75 mg PO DAILY [facility] Last Admin: 02/10/17 08:03 Dose: 75 mg Device (Tiotropium Inhaler Device*) 1 each .SEE ORDER .USE w/ SPIRIVA CAPS [facility] Ferrous Sulfate (Ferrous Sulfate Tab*) 325 mg PO BID [facility] Last Admin: 02/10/17 08:03 Dose: 325 mg Gabapentin (Neurontin Cap(*)) 200 mg PO BEDTIME [facility] Last Admin: 02/09/17 21:34 Dose: 200 mg Heparin Sodium (Porcine) (Heparin Vial(*)) 5,000 units SUBCUT Q8HR [facility] Last Admin: 02/10/17 05:38 Dose: 5,000 units Heparin Sodium (Porcine) (Heparin Flush Picc/Ml/Cvc(*)) 1 ml FLUSH 0600,1800 KEISHA PRN Reason: Protocol Last Admin: 02/10/17 05:38 Dose: 1 ml Ceftriaxone Sodium 1,000 mg/ (Sodium Chloride) 50 mls @ 200 mls/hr IVPB Q24H [facility] Last Admin: 02/10/17 12:46 Dose: 200 mls/hr Azithromycin 500 mg/ Sodium (Chloride) 250 mls @ 250 mls/hr IVPB Q24H [facility] Last Admin: 02/09/17 14:41 Dose: 250 mls/hr Losartan Potassium (Cozaar Tab*) 100 mg PO DAILY [facility] Last Admin: 02/10/17 08:08 Dose: 100 mg Melatonin (Melatonin (Nf)) 3 mg PO BEDTIME [facility] Last Admin: 02/09/17 21:34 Dose: 3 mg Metoprolol Succinate (Toprol Xl Tab*) 100 mg PO DAILY [facility] Last Admin: 02/10/17 08:05 Dose: 100 mg Mometasone Furoate/Formoterol Fumar (Dulera 200/5 Mdi*) 2 puff INH BID [facility] Last Admin: 02/10/17 08:12 Dose: 2 puff Montelukast Sodium (Singulair Tab*) 10 mg PO DAILY [facility] Last Admin: 02/10/17 08:08 Dose: 10 mg Prednisone (Deltasone Tab*) 50 mg PO DAILY [facility] Last Admin: 02/10/17 08:08 Dose: 50 mg Tiotropium [place] (Spiriva Cap.Inh*) 1 cap INH DAILY [facility] Last Admin: 02/10/17 08:12 Dose: 1 cap Vital Signs: Temp Pulse Resp BP Pulse Ox 98.9 F 77 20 169/54 97 02/10/17 11:25 02/10/17 12:03 02/10/17 11:32 02/10/17 12:03 02/10/17 12:03 Oxygen Devices in Use Now: Nasal Cannula Appearance: Chronically ill appearing, but in NAD Respiratory: Symmetrical Chest Expansion and Respiratory Effort, - - few wheezes Cardiovascular: NL Sounds; No Murmurs; No JVD, RRR Extremities: No Edema Skin: No Rash or Ulcers Neurological: Alert and Oriented x 3 Result Diagrams: 02/09/17 05:15 02/09/17 05:15 Additional Lab and Data: . Assess/Plan/Problems-Billing Assessment: This is a 71 yo female with severe COPD, HTN, HLD, CKD, VEENA, PVD and prior CVA who was admitted with acute respiratory failure secondary to CAP and COPD exacerbation. - Patient Problems (1) Acute respiratory failure Comment: Secondary to COPD exacerbation and CAP s/p extubation 02/06 cont abx, oral steroids and inhaled therapies Some slow improvement in dyspnea and functional capacity, still wheezing on exam (2) CAP (community acquired pneumonia) Comment: Cont Ceftriaxone and azithromycin Day 6 abx Noted yeast on sputum cx, discussed with pulm and felt to likely be a contaminant (3) Acute on chronic diastolic heart failure Comment: Resolved Appears euvolemic on exam (4) COPD, severe Comment: Baseline O2 requirements of 4L via [place] (5) VEENA (obstructive sleep apnea) Comment: Previously untreated, tolerated auto CPAP intermittently, but has declined the last [address] Funk recommending Triology at discharge (6) Stage III chronic kidney disease Comment: Stage III-IV Cr near baseline (7) Lung nodule Comment: Requires outpt PET (8) HTN (hypertension) Comment: Mild HTN, likely due to corticosteroids Cont ARB and BB (9) HLD (hyperlipidemia) Comment: Continue statin (10) Full code status (11) DVT prophylaxis Comment: Heparin SQ Status and Disposition: Inpatient. Anticipate additional 2-3 d LOS. Patient is not interested in [facility], encouraged her to cont to work with PT and get to the chair and commode frequently. She will benefit from a rollator walker at discharge so she is able to sit and rest frequently in order to accomodate her severe COPD.
[2017-02-10] MEDS: Albuterol/Ipratropium NEB.SOL* Albuterol 2.5 MG/Ipratropium 0.5 MG 3 ML INH PRN (15:09)
[2017-02-10] MEDS: CMCS: Melatonin (NF) 3 MG TAB PO SCH (21:56)
[2017-02-10] MEDS: Gabapentin CAP(*) 100 MG PO SCH (21:57)
[2017-02-11] MEDS: Albuterol HFA INHALER* 8 gm MDI INH SCH ×5 (03:15→20:17)
[2017-02-11] MEDS: Heparin VIAL(*) 5000 UNITS/ML VIAL (FIVE THOUSAND) SUBCUT SCH ×3 (06:11→21:20)
[2017-02-11] MEDS: Albuterol/Ipratropium NEB.SOL* Albuterol 2.5 MG/Ipratropium 0.5 MG 3 ML INH PRN ×2 (08:42→21:30)
[2017-02-11] MEDS: Tiotropium CAP.INH* CAP.INH/18 MCG (USE ORDER SET !) INH SCH (08:46)
[2017-02-11] MEDS: Mometasone/Formoter 200/5 MDI INH SCH ×2 (08:46→20:18)
[2017-02-11] MEDS: Losartan TAB* 25 MG PO SCH (09:02)
[2017-02-11] MEDS: Clopidogrel TAB* 75 MG PO SCH (09:02)
[2017-02-11] MEDS: Atorvastatin* 10 MG TAB PO SCH (09:02)
[2017-02-11] MEDS: Ferrous Sulfate TAB* 325 MG PO SCH ×2 (09:02→21:19)
[2017-02-11] MEDS: Metoprolol Succinate XL TAB* 100 MG PO SCH (09:02)
[2017-02-11] MEDS: amLODIPine TAB* 5 MG PO SCH (09:02)
[2017-02-11] MEDS: predniSONE TAB* 50 MG PO SCH (09:02)
[2017-02-11] MEDS: Aspirin EC Low Dose* 81 MG TAB.EC PO SCH (09:02)
--- NOTE | 2017-02-11 09:03 | PN ---
Subjective Date of Service: 02/11/17 Interval History: Patient offers no new complaints. Dyspnea improving somewhat. Still needs freq neb treatments. Occasional cough. Objective Active Medications: Acetaminophen (Tylenol Tab*) 650 mg PO Q4H PRN PRN Reason: FEVER/PAIN Last Admin: 02/06/17 09:44 Dose: 650 mg Albuterol (Ventolin Hfa Inhaler*) 2 puff INH [id number] AWAKE [facility] Last Admin: 02/11/17 08:45 Dose: Not Given Albuterol/Ipratropium (Duoneb (Albuterol 2.5 Mg/Ipratropium 0.5 Mg)) 1 neb INH Q4H PRN PRN Reason: SOB/WHEEZING Last Admin: 02/11/17 08:42 Dose: 1 neb Amlodipine Besylate (Norvasc Tab*) 5 mg PO DAILY [facility] Last Admin: 02/10/17 08:08 Dose: 5 mg Aspirin (Aspirin Ec Low Dose*) 81 mg PO DAILY [facility] Last Admin: 02/10/17 08:03 Dose: 81 mg Atorvastatin Calcium (Lipitor*) 10 mg PO DAILY [facility] Last Admin: 02/10/17 08:08 Dose: 10 mg Clopidogrel Bisulfate (Plavix Tab*) 75 mg PO DAILY [facility] Last Admin: 02/10/17 08:03 Dose: 75 mg Device (Tiotropium Inhaler Device*) 1 each .SEE ORDER .USE w/ SPIRIVA CAPS [facility] Ferrous Sulfate (Ferrous Sulfate Tab*) 325 mg PO BID [facility] Last Admin: 02/10/17 21:57 Dose: 325 mg Gabapentin (Neurontin Cap(*)) 200 mg PO BEDTIME [facility] Last Admin: 02/10/17 21:57 Dose: 200 mg Heparin Sodium (Porcine) (Heparin Vial(*)) 5,000 units SUBCUT Q8HR [facility] Last Admin: 02/11/17 06:11 Dose: 5,000 units Heparin Sodium (Porcine) (Heparin Flush Picc/Ml/Cvc(*)) 1 ml FLUSH 0600,1800 KEISHA PRN Reason: Protocol Last Admin: 02/11/17 06:11 Dose: 1 ml Ceftriaxone Sodium 1,000 mg/ (Sodium Chloride) 50 mls @ 200 mls/hr IVPB Q24H [facility] Last Admin: 02/10/17 12:46 Dose: 200 mls/hr Azithromycin 500 mg/ Sodium (Chloride) 250 mls @ 250 mls/hr IVPB Q24H [facility] Last Admin: 02/10/17 13:48 Dose: 250 mls/hr Losartan Potassium (Cozaar Tab*) 100 mg PO DAILY [facility] Last Admin: 02/10/17 08:08 Dose: 100 mg Melatonin (Melatonin (Nf)) 3 mg PO BEDTIME [facility] Last Admin: 02/10/17 21:56 Dose: 3 mg Metoprolol Succinate (Toprol Xl Tab*) 100 mg PO DAILY [facility] Last Admin: 02/10/17 08:05 Dose: 100 mg Mometasone Furoate/Formoterol Fumar (Dulera 200/5 Mdi*) 2 puff INH BID [facility] Last Admin: 02/11/17 08:46 Dose: 2 puff Montelukast Sodium (Singulair Tab*) 10 mg PO DAILY [facility] Last Admin: 02/10/17 08:08 Dose: 10 mg Prednisone (Deltasone Tab*) 50 mg PO DAILY [facility] Last Admin: 02/10/17 08:08 Dose: 50 mg Tiotropium [place] (Spiriva Cap.Inh*) 1 cap INH DAILY [facility] Last Admin: 02/11/17 08:46 Dose: 1 cap Vital Signs: Temp Pulse Resp BP Pulse Ox 97.5 F 75 20 124/61 100 02/11/17 03:58 02/11/17 03:58 02/11/17 03:58 02/11/17 03:58 02/11/17 03:58 Oxygen Devices in Use Now: Nasal Cannula Appearance: Elderly female in NAD, sitting up for breakfast Respiratory: Symmetrical Chest Expansion and Respiratory Effort, - - occasional wheeze in all lung [place] Cardiovascular: NL Sounds; No Murmurs; No JVD, RRR Abdominal: NL Sounds; No Tenderness; No Distention Extremities: No Edema Skin: No Rash or Ulcers Neurological: Alert and Oriented x 3 Result Diagrams: 02/09/17 05:15 02/09/17 05:15 Additional Lab and Data: . Assess/Plan/Problems-Billing Assessment: This is a 71 yo female with severe COPD, HTN, HLD, CKD, VEENA, PVD and prior CVA who was admitted with acute respiratory failure secondary to CAP and COPD exacerbation. - Patient Problems (1) Acute respiratory failure Comment: Secondary to COPD exacerbation and CAP s/p extubation 02/06 cont abx, oral steroids and inhaled therapies Some slow improvement in dyspnea and functional capacity, still wheezing on exam (2) CAP (community acquired pneumonia) Comment: Cont Ceftriaxone and azithromycin Day 7 abx Noted yeast on sputum cx, discussed with pulm and felt to likely be a contaminant (3) Acute on chronic diastolic heart failure Comment: Resolved Appears euvolemic on exam (4) COPD, severe Comment: Baseline O2 requirements of 4L via [place] (5) VEENA (obstructive sleep apnea) Comment: Previously untreated, tolerated auto CPAP intermittently Dr Funk recommending Triology at discharge (6) Stage III chronic kidney disease Comment: Stage III-IV Cr near baseline (7) Lung nodule Comment: Requires outpt PET (8) HTN (hypertension) Comment: Mod HTN, likely due to corticosteroids Cont ARB and BB Started amlodipine (9) HLD (hyperlipidemia) Comment: Continue statin (10) Full code status (11) DVT prophylaxis Comment: Heparin SQ Status and Disposition: Inpatient. Anticipate additional 1-2 d LOS. Patient is not interested in [facility], encouraged her to cont to work with PT and get to the chair and commode frequently. She will benefit from a rollator walker at discharge so she is able to sit and rest frequently in order to accomodate her severe COPD.
[2017-02-11] MEDS: Montelukast Sodium TAB* 10 MG PO SCH (09:08)
[2017-02-11 12:10] LABS: Hematocrit 25 % (35-47); Hemoglobin 7.7 g/dl (12.0-16.0); Mean Corpuscular HGB Conc 31 g/dl (31-36); Mean Corpuscular Hemoglobin 28 pg (27-31); Mean Corpuscular Volume 92 fL (80-97); Mean Platelet Volume 10 um3 (7.4-10.4); Red Blood Count 2.76 10^6/ul (4.0-5.4); Red Cell Distribution Width 15 % (10.5-15); White Blood Count 18.8 10^3/ul (3.5-10.8)
[2017-02-11 12:11] LABS: Add Diff/Slide Review? Slide Review Added; Comments Flag Yes
[2017-02-11] MEDS: cefTRIAXone VIAL(*) 1,000 MG in NS 0.9% 50 ML* 50 ML IVPB SCH (12:34)
[2017-02-11 13:28] LABS: Basophilic Stippling 1+; Hypochromasia 2+; Polychromasia 1+
[2017-02-11] MEDS: Azithromycin IV(*) 500 MG in NS 0.9% 250 ML* 250 ML IVPB SCH (13:37)
[2017-02-11] MEDS: Gabapentin CAP(*) 100 MG PO SCH (21:19)
[2017-02-11] MEDS: CMCS: Melatonin (NF) 3 MG TAB PO SCH (21:19)
[2017-02-12] MEDS: Albuterol HFA INHALER* 8 gm MDI INH SCH ×7 (03:02→23:12)
[2017-02-12] MEDS: Heparin VIAL(*) 5000 UNITS/ML VIAL (FIVE THOUSAND) SUBCUT SCH ×3 (04:45→22:06)
[2017-02-12 05:05] LABS: Hematocrit 23 % (35-47); Hemoglobin 7.2 g/dl (12.0-16.0); Mean Corpuscular HGB Conc 31 g/dl (31-36); Mean Corpuscular Hemoglobin 28 pg (27-31); Mean Corpuscular Volume 91 fL (80-97); Mean Platelet Volume 9 um3 (7.4-10.4); Red Blood Count 2.56 10^6/ul (4.0-5.4); Red Cell Distribution Width 15 % (10.5-15); White Blood Count 14.7 10^3/ul (3.5-10.8)
[2017-02-12 05:06] LABS: Add Diff/Slide Review? Slide Review Added; Comments Flag Yes
[2017-02-12 05:19] LABS: BUN/Creatinine Ratio 21.2 (8-20); Calcium 8.7 mg/dL (8.6-10.3); EGFR African American 51.2 (>60); EGFR Non-African American 39.8 (>60); Potassium 3.6 mmol/L (3.5-5.0)
[2017-02-12] MEDS: Mometasone/Formoter 200/5 MDI INH SCH ×2 (07:57→20:21)
[2017-02-12] MEDS: Tiotropium CAP.INH* CAP.INH/18 MCG (USE ORDER SET !) INH SCH (07:57)
[2017-02-12] MEDS: Losartan TAB* 25 MG PO SCH (09:29)
[2017-02-12] MEDS: Metoprolol Succinate XL TAB* 100 MG PO SCH (09:29)
[2017-02-12] MEDS: predniSONE TAB* 50 MG PO SCH (09:29)
[2017-02-12] MEDS: Ferrous Sulfate TAB* 325 MG PO SCH ×2 (09:30→22:05)
[2017-02-12] MEDS: Montelukast Sodium TAB* 10 MG PO SCH (09:30)
[2017-02-12] MEDS: Aspirin EC Low Dose* 81 MG TAB.EC PO SCH (09:30)
[2017-02-12] MEDS: Atorvastatin* 10 MG TAB PO SCH (09:30)
[2017-02-12] MEDS: Clopidogrel TAB* 75 MG PO SCH (09:30)
[2017-02-12] MEDS: amLODIPine TAB* 5 MG PO SCH (09:31)
--- NOTE | 2017-02-12 17:19 | PN ---
Subjective Date of Service: 02/12/17 Interval History: Patient seen and examined at bedside. Pt states that her shortness of breath is improving and she is getting closer to her baseline shortness of breath. Denies fever, chills, chest discomfort, N/V/D. Pt states that her house is small and she feels that with resting she is able to get around the house to meals and the bathroom. Family History: Unchanged from Admission Social History: Unchanged from Admission Past Medical History: Unchanged from Admission Objective Active Medications: Acetaminophen (Tylenol Tab*) 650 mg PO Q4H PRN Reason: FEVER/PAIN Albuterol (Ventolin Hfa Inhaler*) 2 puff INH RT.[id number] AWAKE KEISHA Albuterol/Ipratropium (Duoneb (Albuterol 2.5 Mg/Ipratropium 0.5 Mg)) 1 neb INH Q4H PRN Reason: SOB/WHEEZING Amlodipine Besylate (Norvasc Tab*) 5 mg PO DAILY [facility] Aspirin (Aspirin Ec Low Dose*) 81 mg PO DAILY [facility] Atorvastatin Calcium (Lipitor*) 10 mg PO DAILY [facility] Clopidogrel Bisulfate (Plavix Tab*) 75 mg PO DAILY [facility] Device (Tiotropium Inhaler Device*) 1 each .SEE ORDER .USE w/ SPIRIVA CAPS KEISHA Ferrous Sulfate (Ferrous Sulfate Tab*) 325 mg PO BID KEISHA Gabapentin (Neurontin Cap(*)) 200 mg PO BEDTIME KEISHA Heparin Sodium (Porcine) (Heparin Vial(*)) 5,000 units SUBCUT Q8HR KEISHA Heparin Sodium (Porcine) (Heparin Flush Picc/Ml/Cvc(*)) 1 ml FLUSH 0600,1800 KEISHA Losartan Potassium (Cozaar Tab*) 100 mg PO DAILY [facility] Melatonin (Melatonin (Nf)) 3 mg PO BEDTIME KEISHA Metoprolol Succinate (Toprol Xl Tab*) 100 mg PO DAILY [facility]IS[facility] Mometasone Furoate/Formoterol Fumar (Dulera 200/5 Mdi*) 2 puff INH BID KEISHA Montelukast Sodium (Singulair Tab*) 10 mg PO DAILY [facility] Prednisone (Deltasone Tab*) 50 mg PO DAILY KEISHA Tiotropium [place] (Spiriva Cap.Inh*) 1 cap INH DAILY [facility] Vital Signs 02/11/17 02/11/17 02/11/17 19:39 20:18 20:20 Temperature 98.4 F Pulse Rate 82 82 Respiratory 22 20 Rate Blood Pressure 169/47 (mmHg) O2 Sat by Pulse 97 97 97 Oximetry 02/11/17 02/11/17 02/11/17 21:19 21:31 22:07 Temperature Pulse Rate Respiratory 18 18 18 Rate Blood Pressure (mmHg) O2 Sat by Pulse 98 Oximetry 02/11/17 02/11/17 02/12/17 23:19 23:22 02:57 Temperature 98.2 F Pulse Rate 86 92 Respiratory 18 16 24 Rate Blood Pressure 153/64 165/69 (mmHg) O2 Sat by Pulse 100 96 Oximetry 02/12/17 02/12/17 02/12/17 03:04 07:35 08:00 Temperature 98.1 F Pulse Rate 72 68 68 Respiratory 18 21 16 Rate Blood Pressure 165/64 (mmHg) O2 Sat by Pulse 98 100 98 Oximetry 02/12/17 02/12/17 02/12/17 11:25 12:10 14:00 Temperature 98.5 F Pulse Rate 73 72 Respiratory 22 Rate Blood Pressure 158/57 (mmHg) O2 Sat by Pulse 100 97 Oximetry 02/12/17 02/12/17 02/12/17 14:05 14:26 14:45 Temperature Pulse Rate 78 72 92 Respiratory 24 22 Rate Blood Pressure 173/55 (mmHg) O2 Sat by Pulse 97 96 97 Oximetry 02/12/17 02/12/17 15:08 15:15 Temperature 98.9 F 98.9 F Pulse Rate 69 69 Respiratory 24 24 Rate Blood Pressure 167/49 167/49 (mmHg) O2 Sat by Pulse 97 97 Oximetry Oxygen Devices in Use Now: Nasal Cannula - 4L Appearance: NAD, laying in bed Ears/Nose/Mouth/Throat: Mucous Membranes Moist Respiratory: Symmetrical Chest Expansion and Respiratory Effort, - - Lung sounds clear and diminished with exp wheeze Cardiovascular: NL Sounds; No Murmurs; No JVD, RRR Abdominal: NL Sounds; No Tenderness; No Distention Extremities: No Edema Skin: No Rash or Ulcers Neurological: Alert and Oriented x 3, NL Muscle Strength and Tone Lines/Tubes/Other Access: Clean, Dry and Intact PICC Line - site benign Nutrition: Taking PO's Result Diagrams: 02/12/17 04:20 02/12/17 04:20 Assess/Plan/Problems-Billing Assessment: Ms. Lambert is a 71 yo female with severe COPD, HTN, HLD, CKD, VEENA, PVD and prior CVA who was admitted with acute respiratory failure secondary to CAP and COPD exacerbation. - Patient Problems (1) Acute respiratory failure Code(s): J96.00 - ACUTE RESPIRATORY FAILURE, UNSP W HYPOXIA OR HYPERCAPNIA SNOMED Code(s): 29507323 Comment: - Secondary to COPD exacerbation and CAP - s/p extubation 02/06 - continue abx, oral steroids and inhaled therapies - Some slow improvement in dyspnea and functional capacity, still wheezing on exam (2) CAP (community acquired pneumonia) Code(s): J18.9 - PNEUMONIA, UNSPECIFIED ORGANISM SNOMED Code(s): 519385137 Comment: - Noted yeast on sputum cx, discussed with pulm and felt to likely be a contaminant - Completed 5 day course azithromycin - Continue Ceftriaxone (day 01/09) (3) Acute on chronic diastolic heart failure Code(s): I50.33 - ACUTE ON CHRONIC DIASTOLIC (CONGESTIVE) HEART FAILURE SNOMED Code(s): 423655046 Comment: - Resolved - Appears euvolemic on exam - Continue strict I+Os and daily weights (4) COPD, severe Code(s): J44.9 - CHRONIC OBSTRUCTIVE PULMONARY DISEASE, UNSPECIFIED SNOMED Code(s): 371326877 Comment: - Baseline O2 requirements of 4L via [place] - Continue Dulera, prednisone and nebs (5) VEENA (obstructive sleep apnea) Code(s): G47.33 - OBSTRUCTIVE SLEEP APNEA (ADULT) (PEDIATRIC) SNOMED Code(s): 83137518 Comment: - Previously untreated, tolerated auto CPAP intermittently - Dr Funk recommending Triology at discharge (6) Stage III chronic kidney disease Code(s): N18.3 - CHRONIC KIDNEY DISEASE, STAGE 3 (MODERATE) SNOMED Code(s): 379317199 Comment: - Stage III-IV - Cr near baseline (7) Lung nodule Code(s): R91.1 - SOLITARY PULMONARY NODULE SNOMED Code(s): 850894079 Comment: - Requires outpt PET (8) HLD (hyperlipidemia) Code(s): E78.5 - HYPERLIPIDEMIA, UNSPECIFIED SNOMED Code(s): 86388720 Comment: - Continue statin (9) HTN (hypertension) Code(s): I10 - ESSENTIAL (PRIMARY) HYPERTENSION SNOMED Code(s): 59127016 Comment: - Moderate HTN, likely due to corticosteroids - Continue losartan, metoprolol succinate, and amlodipine (10) DVT prophylaxis Code(s): HLT3401 - SNOMED Code(s): 955775808 Comment: - Heparin SQ (11) Full code status Code(s): Z78.9 - OTHER SPECIFIED HEALTH STATUS SNOMED Code(s): 074105510 Status and Disposition: Inpatient. Anticipate additional 1-2 d LOS. Patient is not interested in [facility], encouraged her to continue to work with PT and get to the chair and commode frequently. She will benefit from a rollator walker at discharge so she is able to sit and rest frequently in order to accomodate her severe COPD.
[2017-02-12] MEDS: Albuterol/Ipratropium NEB.SOL* Albuterol 2.5 MG/Ipratropium 0.5 MG 3 ML INH PRN (17:47)
[2017-02-12] MEDS: CMCS: Melatonin (NF) 3 MG TAB PO SCH (22:05)
[2017-02-12] MEDS: Gabapentin CAP(*) 100 MG PO SCH (22:05)
[2017-02-13] MEDS: Albuterol HFA INHALER* 8 gm MDI INH SCH ×6 (03:26→23:42)
[2017-02-13 05:46] LABS: Hematocrit 25 % (35-47); Hemoglobin 7.7 g/dl (12.0-16.0); Mean Corpuscular HGB Conc 31 g/dl (31-36); Mean Corpuscular Hemoglobin 28 pg (27-31); Mean Corpuscular Volume 91 fL (80-97); Mean Platelet Volume 9 um3 (7.4-10.4); Red Blood Count 2.72 10^6/ul (4.0-5.4); Red Cell Distribution Width 15 % (10.5-15); White Blood Count 15.7 10^3/ul (3.5-10.8)
[2017-02-13 05:48] LABS: Add Diff/Slide Review? Slide Review Added; Comments Flag Yes
[2017-02-13] MEDS: Heparin VIAL(*) 5000 UNITS/ML VIAL (FIVE THOUSAND) SUBCUT SCH ×3 (05:48→21:36)
[2017-02-13 07:04] LABS: Basophilic Stippling 1+; Hypochromasia 2+
[2017-02-13] MEDS: Tiotropium CAP.INH* CAP.INH/18 MCG (USE ORDER SET !) INH SCH (07:59)
[2017-02-13] MEDS: Mometasone/Formoter 200/5 MDI INH SCH ×2 (07:59→19:25)
--- NOTE | 2017-02-13 09:56 | PN ---
Subjective Date of Service: 02/13/17 Interval History: Patient seen and examined at bedside. Denies fever, chills, chest discomfort, N/ V/D. Pt states that her shortness of breath is near her baseline. She is easily fatigued. She reports that she has been using the bed bynum to urinate. Her family doesn't feel that she is ready for discharge today, due to the fact that she isn't ambulating to the bathroom. Pt will work on ambulating to the bathroom today with plans for discharge to home. Pt may be interested in using a CPAP or Trilogy vent at home, but would like to discuss this with Dr. Funk at a follow-up appointment. Family History: Unchanged from Admission Social History: Unchanged from Admission Past Medical History: Unchanged from Admission Objective Active Medications: Acetaminophen (Tylenol Tab*) 650 mg PO Q4H PRN Reason: FEVER/PAIN Albuterol (Ventolin Hfa Inhaler*) 2 puff INH [id number] AWAKE KEISHA Albuterol/Ipratropium (Duoneb (Albuterol 2.5 Mg/Ipratropium 0.5 Mg)) 1 neb INH Q4H PRN Reason: SOB/WHEEZING Amlodipine Besylate (Norvasc Tab*) 5 mg PO DAILY [facility] Aspirin (Aspirin Ec Low Dose*) 81 mg PO DAILY [facility] Atorvastatin Calcium (Lipitor*) 10 mg PO DAILY [facility] Clopidogrel Bisulfate (Plavix Tab*) 75 mg PO DAILY [facility] Device (Tiotropium Inhaler Device*) 1 each .SEE ORDER .USE w/ SPIRIVA CAPS KEISHA Ferrous Sulfate (Ferrous Sulfate Tab*) 325 mg PO BID [facility] Gabapentin (Neurontin Cap(*)) 200 mg PO BEDTIME [facility] Heparin Sodium (Porcine) (Heparin Vial(*)) 5,000 units SUBCUT Q8HR [facility] Heparin Sodium (Porcine) (Heparin Flush Picc/Ml/Cvc(*)) 1 ml FLUSH 0600,1800 [facility] Losartan Potassium (Cozaar Tab*) 100 mg PO DAILY [facility] Melatonin (Melatonin (Nf)) 3 mg PO BEDTIME [facility] Metoprolol Succinate (Toprol Xl Tab*) 100 mg PO DAILY [facility] Mometasone Furoate/Formoterol Fumar (Dulera 200/5 Mdi*) 2 puff INH BID [facility] Montelukast Sodium (Singulair Tab*) 10 mg PO DAILY [facility] Prednisone (Deltasone Tab*) 50 mg PO DAILY [facility] Tiotropium [place] (Spiriva Cap.Inh*) 1 cap INH DAILY [facility] Vital Signs 02/12/17 02/12/17 02/12/17 11:25 12:10 14:00 Temperature 98.5 F Pulse Rate 73 72 Respiratory 22 Rate Blood Pressure 158/57 (mmHg) O2 Sat by Pulse 100 97 Oximetry 02/12/17 02/12/17 02/12/17 14:05 14:26 14:45 Temperature Pulse Rate 78 72 92 Respiratory 24 22 Rate Blood Pressure 173/55 (mmHg) O2 Sat by Pulse 97 96 97 Oximetry 02/12/17 02/12/17 02/12/17 15:08 15:15 17:48 Temperature 98.9 F 98.9 F Pulse Rate 69 69 71 Respiratory 24 24 18 Rate Blood Pressure 167/49 167/49 (mmHg) O2 Sat by Pulse 97 97 98 Oximetry 02/12/17 02/12/17 02/12/17 20:00 20:36 22:05 Temperature 98.5 F Pulse Rate 77 Respiratory 20 24 22 Rate Blood Pressure 149/59 (mmHg) O2 Sat by Pulse 99 Oximetry 02/12/17 02/13/17 02/13/17 23:32 00:05 02:04 Temperature 97.6 F Pulse Rate 75 Respiratory 18 20 Rate Blood Pressure 149/66 (mmHg) O2 Sat by Pulse 99 99 Oximetry 02/13/17 02/13/17 03:30 08:01 Temperature 98.1 F Pulse Rate 87 56 Respiratory 20 18 Rate Blood Pressure 135/82 (mmHg) O2 Sat by Pulse 97 97 Oximetry Oxygen Devices in Use Now: Nasal Cannula - 4L Appearance: NAD, laying in bed Ears/Nose/Mouth/Throat: Mucous Membranes Moist Respiratory: Symmetrical Chest Expansion and Respiratory Effort, - - Lung sounds clear, but diminished in the bases, exp wheeze Cardiovascular: NL Sounds; No Murmurs; No JVD, RRR Abdominal: NL Sounds; No Tenderness; No Distention Extremities: No Edema Skin: No Rash or Ulcers Neurological: Alert and Oriented x 3, NL Muscle Strength and Tone Lines/Tubes/Other Access: Clean, Dry and Intact PICC Line - site benign Nutrition: Taking PO's Result Diagrams: 02/13/17 05:26 02/12/17 04:20 Additional Lab and Data: . Assess/Plan/Problems-Billing Assessment: Ms. Lambert is a 71 yo female with severe COPD, HTN, HLD, CKD, VEENA, PVD and prior CVA who was admitted with acute respiratory failure secondary to CAP and COPD exacerbation. - Patient Problems (1) Acute respiratory failure Code(s): J96.00 - ACUTE RESPIRATORY FAILURE, UNSP W HYPOXIA OR HYPERCAPNIA SNOMED Code(s): 74209510 Comment: - Acute on chronic, secondary to COPD exacerbation and CAP - s/p extubation 02/06 - Continue oral steroids and inhaled therapies - Some slow improvement in dyspnea and functional capacity, still wheezing on exam (2) CAP (community acquired pneumonia) Code(s): J18.9 - PNEUMONIA, UNSPECIFIED ORGANISM SNOMED Code(s): 249853864 Comment: - Noted yeast on sputum cx, discussed with pulm and felt to likely be a contaminant - Completed 5 day course azithromycin and a 7 day course of ceftriaxone (3) Acute on chronic diastolic heart failure Code(s): I50.33 - ACUTE ON CHRONIC DIASTOLIC (CONGESTIVE) HEART FAILURE SNOMED Code(s): 625467301 Comment: - Resolved - Appears euvolemic on exam - Continue strict I+Os and daily weights (4) COPD, severe Code(s): J44.9 - CHRONIC OBSTRUCTIVE PULMONARY DISEASE, UNSPECIFIED SNOMED Code(s): 851825278 Comment: - Baseline O2 requirements of 4L via NC - Continue Dulera, prednisone and nebs (5) VEENA (obstructive sleep apnea) Code(s): G47.33 - OBSTRUCTIVE SLEEP APNEA (ADULT) (PEDIATRIC) SNOMED Code(s): 47550027 Comment: - Previously untreated, tolerated auto CPAP intermittently - Dr Funk recommending Trilogy at discharge if Pt is willing to use (6) Stage III chronic kidney disease Code(s): N18.3 - CHRONIC KIDNEY DISEASE, STAGE 3 (MODERATE) SNOMED Code(s): 412858510 Comment: - Stage III-IV - Cr near baseline (7) Lung nodule Code(s): R91.1 - SOLITARY PULMONARY NODULE SNOMED Code(s): 763860380 Comment: - Requires outpt PET (8) HLD (hyperlipidemia) Code(s): E78.5 - HYPERLIPIDEMIA, UNSPECIFIED SNOMED Code(s): 85132988 Comment: - Continue statin (9) HTN (hypertension) Code(s): I10 - ESSENTIAL (PRIMARY) HYPERTENSION SNOMED Code(s): 89912928 Comment: - Moderate HTN, likely due to corticosteroids - Continue losartan, metoprolol succinate, and amlodipine (10) DVT prophylaxis Code(s): PPX1343 - SNOMED Code(s): 105102802 Comment: - Heparin SQ (11) Full code status Code(s): Z78.9 - OTHER SPECIFIED HEALTH STATUS SNOMED Code(s): 916742621 Status and Disposition: Inpatient. Patient is not interested in [facility], encouraged her to continue to work with PT and get to the chair and commode frequently. She will benefit from a rollator walker at discharge so she is able to sit and rest frequently in order to accommodate her severe COPD. Stable for discharge to home in the Am after she works on walking to the bathroom today.
[2017-02-13] MEDS: Losartan TAB* 25 MG PO SCH (10:03)
[2017-02-13] MEDS: predniSONE TAB* 50 MG PO SCH (10:03)
[2017-02-13] MEDS: Clopidogrel TAB* 75 MG PO SCH (10:03)
[2017-02-13] MEDS: Ferrous Sulfate TAB* 325 MG PO SCH ×2 (10:03→20:33)
[2017-02-13] MEDS: Montelukast Sodium TAB* 10 MG PO SCH (10:04)
[2017-02-13] MEDS: Atorvastatin* 10 MG TAB PO SCH (10:04)
[2017-02-13] MEDS: amLODIPine TAB* 5 MG PO SCH (10:04)
[2017-02-13] MEDS: Aspirin EC Low Dose* 81 MG TAB.EC PO SCH (10:04)
[2017-02-13] MEDS: Metoprolol Succinate XL TAB* 100 MG PO SCH (10:04)
[2017-02-13] MEDS: Albuterol/Ipratropium NEB.SOL* Albuterol 2.5 MG/Ipratropium 0.5 MG 3 ML INH PRN (19:22)
[2017-02-13] MEDS: Gabapentin CAP(*) 100 MG PO SCH (20:33)
[2017-02-13] MEDS: CMCS: Melatonin (NF) 3 MG TAB PO SCH (21:37)
[2017-02-14] MEDS: Albuterol HFA INHALER* 8 gm MDI INH SCH ×3 (03:15→09:46)
[2017-02-14] MEDS: Heparin VIAL(*) 5000 UNITS/ML VIAL (FIVE THOUSAND) SUBCUT SCH (06:20)
[2017-02-14 08:49] VITALS: BP 148/63
[2017-02-14] MEDS: Albuterol/Ipratropium NEB.SOL* Albuterol 2.5 MG/Ipratropium 0.5 MG 3 ML INH PRN (08:55)
[2017-02-14] MEDS ORDERED: amLODIPine TAB* 5 MG PO SCH (09:00)
[2017-02-14] MEDS: Metoprolol Succinate XL TAB* 100 MG PO SCH (09:02)
[2017-02-14] MEDS: predniSONE TAB* 50 MG PO SCH (09:02)
[2017-02-14] MEDS: Clopidogrel TAB* 75 MG PO SCH (09:03)
[2017-02-14] MEDS: Atorvastatin* 10 MG TAB PO SCH (09:03)
[2017-02-14] MEDS: Losartan TAB* 25 MG PO SCH (09:03)
[2017-02-14] MEDS: Ferrous Sulfate TAB* 325 MG PO SCH (09:03)
[2017-02-14] MEDS: Aspirin EC Low Dose* 81 MG TAB.EC PO SCH (09:03)
[2017-02-14] MEDS: Montelukast Sodium TAB* 10 MG PO SCH (09:03)
--- NOTE | 2017-02-14 09:26 | PN ---
Subjective Date of Service: 02/14/17 Interval History: Patient seen and examined at bedside. Pt states that she has been ambulating to the bathroom and feels she is ready for discharge to home today. Denies fever, chills, chest discomfort, N/V/D. Pt states that he shortness of breath is at baseline. Family History: Unchanged from Admission Social History: Unchanged from Admission Past Medical History: Unchanged from Admission Objective Active Medications: Acetaminophen (Tylenol Tab*) 650 mg PO Q4H PRN Reason: FEVER/PAIN Albuterol (Ventolin Hfa Inhaler*) 2 puff INH [id number] AWAKE KEISHA Albuterol/Ipratropium (Duoneb (Albuterol 2.5 Mg/Ipratropium 0.5 Mg)) 1 neb INH Q4H PRN Reason: SOB/WHEEZING Amlodipine Besylate (Norvasc Tab*) 10 mg PO DAILY [facility] Aspirin (Aspirin Ec Low Dose*) 81 mg PO DAILY [facility] Atorvastatin Calcium (Lipitor*) 10 mg PO DAILY [facility] Clopidogrel Bisulfate (Plavix Tab*) 75 mg PO DAILY [facility] Device (Tiotropium Inhaler Device*) 1 each .SEE ORDER .USE w/ SPIRIVA CAPS KEISHA Ferrous Sulfate (Ferrous Sulfate Tab*) 325 mg PO BID [facility] Gabapentin (Neurontin Cap(*)) 200 mg PO BEDTIME [facility] Heparin Sodium (Porcine) (Heparin Vial(*)) 5,000 units SUBCUT Q8HR [facility] Heparin Sodium (Porcine) (Heparin Flush Picc/Ml/Cvc(*)) 1 ml FLUSH 0600,1800 [facility] Reason: Protocol Losartan Potassium (Cozaar Tab*) 100 mg PO DAILY [facility] Melatonin (Melatonin (Nf)) 3 mg PO BEDTIME [facility] Metoprolol Succinate (Toprol Xl Tab*) 100 mg PO DAILY [facility] Mometasone Furoate/Formoterol Fumar (Dulera 200/5 Mdi*) 2 puff INH BID [facility] Montelukast Sodium (Singulair Tab*) 10 mg PO DAILY [facility] Prednisone (Deltasone Tab*) 50 mg PO DAILY [facility] Tiotropium [place] (Spiriva Cap.Inh*) 1 cap INH DAILY [facility] Vital Signs 02/13/17 02/13/17 02/13/17 11:47 15:04 15:30 Temperature 98.5 F 98.7 F 98.7 F Pulse Rate 70 69 69 Respiratory 22 20 20 Rate Blood Pressure 156/53 145/57 145/57 (mmHg) O2 Sat by Pulse 100 98 98 Oximetry 02/13/17 02/13/17 02/13/17 19:25 19:26 19:46 Temperature 98.1 F Pulse Rate 69 70 Respiratory 20 22 Rate Blood Pressure 152/66 (mmHg) O2 Sat by Pulse 99 99 100 Oximetry 02/13/17 02/13/17 02/14/17 23:33 23:36 02:57 Temperature 98.5 F Pulse Rate 70 78 Respiratory 18 22 Rate Blood Pressure 185/67 168/70 174/61 (mmHg) O2 Sat by Pulse 100 98 Oximetry 02/14/17 07:46 Temperature 98.5 F Pulse Rate 66 Respiratory 20 Rate Blood Pressure 148/63 (mmHg) O2 Sat by Pulse 100 Oximetry Oxygen Devices in Use Now: Nasal Cannula - 4L Appearance: NAD, laying in bed Ears/Nose/Mouth/Throat: Mucous Membranes Moist Respiratory: Symmetrical Chest Expansion and Respiratory Effort, Clear to Auscultation - , diminished Cardiovascular: NL Sounds; No Murmurs; No JVD, RRR Abdominal: NL Sounds; No Tenderness; No Distention Extremities: - - trace to 1+ bilateral ankle/foot edema Skin: No Rash or Ulcers Neurological: Alert and Oriented x 3, NL Muscle Strength and Tone Lines/Tubes/Other Access: Clean, Dry and Intact PICC Line - site benign Nutrition: Taking PO's Result Diagrams: 02/13/17 05:26 02/12/17 04:20 Assess/Plan/Problems-Billing Assessment: Ms. Lambert is a 71 yo female with severe COPD, HTN, HLD, CKD, VEENA, PVD and prior CVA who was admitted with acute respiratory failure secondary to CAP and COPD exacerbation. - Patient Problems (1) Acute respiratory failure Code(s): J96.00 - ACUTE RESPIRATORY FAILURE, UNSP W HYPOXIA OR HYPERCAPNIA SNOMED Code(s): 05435385 Comment: - Acute on chronic, secondary to COPD exacerbation and CAP - s/p extubation 02/06 - Continue oral steroid taper and inhaled therapies - Some improvement in dyspnea and functional capacity (2) CAP (community acquired pneumonia) Code(s): J18.9 - PNEUMONIA, UNSPECIFIED ORGANISM SNOMED Code(s): 394700765 Comment: - Noted yeast on sputum cx, discussed with pulm and felt to likely be a contaminant - Completed 5 day course azithromycin and a 7 day course of ceftriaxone (3) Acute on chronic diastolic heart failure Code(s): I50.33 - ACUTE ON CHRONIC DIASTOLIC (CONGESTIVE) HEART FAILURE SNOMED Code(s): 142627904 Comment: - Resolved - Appears euvolemic on exam - Continue strict I+Os and daily weights (4) COPD, severe Code(s): J44.9 - CHRONIC OBSTRUCTIVE PULMONARY DISEASE, UNSPECIFIED SNOMED Code(s): 691375785 Comment: - Baseline O2 requirements of 4L via NC - Continue Dulera, prednisone taper and nebs (5) VEENA (obstructive sleep apnea) Code(s): G47.33 - OBSTRUCTIVE SLEEP APNEA (ADULT) (PEDIATRIC) SNOMED Code(s): 83588956 Comment: - Previously untreated, tolerated auto CPAP intermittently - Dr Funk recommending Trilogy at discharge if Pt is willing to use (6) Stage III chronic kidney disease Code(s): N18.3 - CHRONIC KIDNEY DISEASE, STAGE 3 (MODERATE) SNOMED Code(s): 827337003 Comment: - Stage III-IV - Cr near baseline (7) Lung nodule Code(s): R91.1 - SOLITARY PULMONARY NODULE SNOMED Code(s): 579366707 Comment: - Requires outpt PET (8) HLD (hyperlipidemia) Code(s): E78.5 - HYPERLIPIDEMIA, UNSPECIFIED SNOMED Code(s): 15185280 Comment: - Continue statin (9) HTN (hypertension) Code(s): I10 - ESSENTIAL (PRIMARY) HYPERTENSION SNOMED Code(s): 63353207 Comment: - Moderate HTN, likely due to corticosteroids - Continue losartan, metoprolol succinate, and amlodipine (10) DVT prophylaxis Code(s): VYH0253 - SNOMED Code(s): 037274526 Comment: (11) Full code status Code(s): Z78.9 - OTHER SPECIFIED HEALTH STATUS SNOMED Code(s): 690745707 Status and Disposition: Inpatient. Patient is not interested in [facility], encouraged her to continue to work with PT and get to the chair and commode frequently. She will benefit from a rollator walker at discharge so she is able to sit and rest frequently in order to accommodate her severe COPD. Stable for discharge to home today.
[2017-02-14] MEDS: Tiotropium CAP.INH* CAP.INH/18 MCG (USE ORDER SET !) INH SCH (09:47)
[2017-02-14] MEDS: Mometasone/Formoter 200/5 MDI INH SCH (09:47)
--- NOTE | 2017-02-15 04:56 | DS ---
CC: Dr. Funk; Dr. Prosper Holbrook * DISCHARGE SUMMARY: DATE OF ADMISSION: 02/05/17 DATE OF DISCHARGE: 02/14/17 ATTENDING PHYSICIAN: Dr. Migue Doss * (dictated by Dion Poe NP) PRIMARY CARE PROVIDER: Dr. Prosper Holbrook. BOILER OUT: Dr. Funk. PRIMARY DIAGNOSES: 1. Community-acquired pneumonia. 2. Chronic obstructive pulmonary disease exacerbation. 3. Acute on chronic respiratory failure, improved. 4. Acute on chronic heart failure. 5. Lung nodule. SECONDARY DIAGNOSES: 1. Obstructive sleep apnea. 2. Chronic kidney disease stage 3. 3. Hyperlipidemia. 4. Hypertension. CONSULTATIONS WHILE IN THE HOSPITAL: Dr. Funk with Pulmonology. STUDIES WHILE IN THE HOSPITAL: 1. Chest x-ray on 02/05/17. Radiologist's impression: No active cardiopulmonary disease is noted. 2. Chest thoracic CTA on 02/05/17. Radiologist's impression: No evidence for pulmonary embolus. Bilateral infiltrates most consistent with pneumonia. Small pericardial effusion, small right middle lobe pulmonary nodule. Recommend a PET/CT study for further evaluation. 3. Brain CT on 02/06/17. Radiologist's impression: Stable encephalomalacia involving the right frontal lobe on this highly limited CT of the brain due to motion artifact. 4. Chest x-ray on 02/06/17. Radiologist's impression: Findings most consistent with congestive heart failure, less likely pneumonia, new. Endotracheal tube tip low in position, recommend repositioning. 5. Transthoracic echocardiogram on 02/06/17. [employer]'s conclusion: The study is technically limited due to the patient's history of COPD. Poor images for any accurate analysis. Moderate concentric left ventricular hypertrophy is observed. The left ventricle appears to be hyperdynamic. The estimated ejection fraction is greater than 55%. Abnormal left ventricular diastolic filling is observed, consistent with impaired relaxation. No obvious significant valvular pathology with trace tricuspid regurgitation, however, poor quality images preclude accurate assessment. 6. Electroencephalogram on 02/06/17. Interpretation with the patient intubated , background cerebral activity consisted of admixed 11 beta activity, alpha activity to 11 Hz and theta activity. At times, the patient thrashes or has whole body tremors, it is not associated with change in background. There is some muscle movement artifact. There is some left temporal sharp activity, which probably is artifactual, but cannot completely rule out this arising from her left temporal lobe. No clear cut epileptiform potentials or major asymmetries of background are noted. Neurologist's clinical impression: This EEG with the patient sedated on propofol and intubated shows no clear-cut epileptiform potentials and there is background slowing and beta activity in keeping with the patient's sedation. There is some muscle movement artifact noted, but no clear-cut epileptiform potentials. There is some activity in the left temporal area, which may be related to artifact, but underlying ischemia or structural lesion cannot be entirely excluded. 7. Chest x-ray on 02/08/17. Radiologist's impression: Overall improvement in imaging features associated with cardiogenic pulmonary edema as described above. There is focal density of the lateral aspect of the right lung base, which could represent focal pneumonia or atelectasis. DISCHARGE MEDICATIONS: New home medications: 1. Amlodipine 10 mg oral daily. 2. Prednisone 10 mg tablets, take 40 mg oral daily for 5 days, followed by 30 mg oral daily for 5 days, then 20 mg oral daily for 5 days, then 10 mg oral daily for five days, then 5 mg oral daily for 5 days and then stop. Continued home medications: 1. Gabapentin 200 mg oral daily at bedtime. 2. Lovastatin 20 mg oral daily. 3. Irbesartan 300 mg oral daily. 4. Aspirin 81 mg oral daily. 5. Symbicort 160/4.5 one puff inhalation twice daily. 6. DuoNeb 2.5/0.5 one neb inhalation every 4 hours as needed for shortness of breath or wheeze. 7. Spiriva 1 inhalation daily. 8. Iron complex of 150 mg oral daily. 9. Singulair 10 mg oral daily. 10. Vitamin B12 1000 mcg oral daily. 11. Plavix 75 mg oral daily. 12. Albuterol HFA 2 puffs inhalation every 4 hours as needed for shortness of breath or wheeze. 13. Metoprolol succinate 100 mg oral daily. HISTORY OF PRESENT ILLNESS/HOSPITAL COURSE: Ms. Lambert is a 71-year-old female with past medical history significant for hypertension; hyperlipidemia; COPD with chronic respiratory failure, on 4 L oxygen via nasal cannula at baseline; chronic kidney disease; obstructive sleep apnea, peripheral vascular disease; history of cerebrovascular accident who went to see her doctor for profound shortness of breath after smoking a cigarette after doctor's appointment. The patient could not catch her breath. She denied any recent travel, calf pain, leg pain, swelling. She felt that overall over the last several days, she had become more short of breath and that on the day of presentation that the shortness of breath was much worse, but she also felt that the shortness of breath being significantly worse was a sudden onset. She denied any chest pain. She denied any sick contacts or upper respiratory infection symptoms such as sore throat, runny nose, nasal congestion. The patient decided to present to the emergency room for further evaluation of her symptoms. While in the emergency room, the patient was noted to be fairly hypoxic, her oxygen saturations were in the 70s. She required nonrebreather and nebulizer treatments. Initially, this helped but then the patient had worsening shortness of breath in which requiring more oxygen. Her labs were significant for leukocytosis with white blood cell count of 15.2. Her troponin is 0. She had an EKG showing a sinus tachycardia. No ST elevations or T-wave inversions. It appeared to be similar to previous EKG. She had a chest x-ray showing no cardiopulmonary disease. The patient was also noted to have a mildly elevated D -dimer. The hospitalists were asked to evaluate the patient for admission. While in the hospital, the patient was initially felt to have a COPD exacerbation. Due to her slightly elevated D-dimer, she had a CTA of her chest revealing no evidence for pulmonary embolus but bilateral infiltrates most consistent with a pneumonia, a small pericardial effusion and a small right middle lobe pulmonary nodule. During the patient's initial stay, she had increasing oxygen amounts with her oxygen saturations 80% to 100%. She was unresponsive with agonal breathing and was being ventilated by bag-valve mask. The patient was intubated. She had a chest x-ray showing placement of the ET tube and diffuse alveolar and interstitial edema. The patient had a head CT without any significant findings. The patient received Lasix and bicarb in the setting of a profound acidemia. She is also given Kayexalate for hyperkalemia. The patient was transferred to the ICU. During the patient's time in the intensive care unit, she underwent a workup for possible seizure. She had an EEG showing no definitive signs of seizure activity. She underwent a transthoracic echocardiogram showing moderate concentric left ventricular hypertrophy, estimated EF of greater than 65%. She had an abnormal left ventricular diastolic filling due to the patient's COPD history. Overall this was a technically limited study. The patient was treated for pneumonia with IV azithromycin and ceftriaxone. She improved and was extubated on 02/06/17. The patient was able to be weaned over her stay, back to her home oxygen requirement of 3 to 4 L via nasal cannula. During her stay, she was afebrile. She was often hypertensive, it was felt some of this was due to her steroid use and she was started on amlodipine. The patient was found to be in acute on chronic diastolic heart failure which resolved. The patient was seen in consultation by Dr. Funk, who recommended CPAP or Trilogy vent for the patient. The patient tried the CPAP once over night, but then declined. The patient's chronic kidney disease was at her baseline. The patient improved and felt that her shortness of breath was at her baseline. She was able to ambulate to the bathroom. She did have a persistent leukocytosis, this was felt to be secondary to her steroid use. Ms. Lambert is stable for discharge to home today. Vital signs are as follows: Temperature 98.5, heart rate 66, respiratory rate 20, O2 sat 100% on 4 L via nasal cannula, blood pressure 148/63. DISCHARGE PLAN: Ms. Lambert will be discharged to home today. Activity, as tolerated. She should be on a regular low sodium diet. As far as the patient' s community-acquired pneumonia, she completed a 5-day course of azithromycin and a 7- day course of ceftriaxone. The patient's acute on chronic diastolic heart failure had resolved. Recommend the patient do daily weights and call Dr. Holbrook for any weight gain greater than 3 pounds in 24 hours. As far as the patient's chronic respiratory failure, she should be continued on 4 L via nasal cannula supplemental oxygen. As far as the patient's severe COPD, she will be continued on her Symbicort, Spiriva and as needed albuterol nebs or inhalers. She should see Dr. Funk in followup. She has an appointment on at 12 p.m. At that point, I have recommended the patient discuss with Dr. Funk getting a CPAP or Trilogy vent for her at home. At this point, the patient is unsure if she would like one of these devices. The patient has been continued on a prednisone taper. She should take 40 mg for 5 days followed 30 mg for 5 days, then 20 mg for 5 days and 10 mg for 5 days and then 5 mg for 5 days and then stop. She has been continued on her other usual home medications. The patient was found to have a small right middle lobe pulmonary nodule. She should be assisted with getting setup for an outpatient PET scan for further evaluation. The patient should be seen in followup by her primary care provider, Dr. Holbrook, in the next [address] Holbrook's office will call the patient with the appointment date and time. The patient has been asked to return to the emergency room for any chest pain or worsening shortness of breath. This is a summarized report of a complex medical history and hospital stay. For further details, please see the entire medical record. TIME SPENT: Time for this discharge was approximately 50 minutes, greater than half of that was spent with the patient discussing discharge plans and instructions. DION POE NP [id number]/[facility] #: [id number] [place]
== END 2017-02-14 11:20 | disposition home health service (06) | DRG 208 ==
LOC: ED 11:21 → MED 13:04 → ICU 02-06 01:15 → OBSVTOIN 02-06 04:59 → MED 02-07 11:38
PROVIDERS: ADMIT Hospitalist; ATTEND Internal Medicine
PROC: 5A1935Z Respiratory Ventilation, Less than 24 Consecutive Hours (ICD-10-PCS; principal; 2017-02-06)
PROC: 0BH17EZ Insertion of Endotracheal Airway into Trachea, Via Natural or Artificial Opening (ICD-10-PCS; 2017-02-06)
PROC: 4A10X4Z Monitoring of Central Nervous Electrical Activity, External Approach (ICD-10-PCS; 2017-02-06)
PROC: 3E0234Z Introduction of Serum, Toxoid and Vaccine into Muscle, Percutaneous Approach (ICD-10-PCS; 2017-02-06)
DX: J44.1 Chronic obstructive pulmonary disease with (acute) exacerbation (principal); J96.21 Acute and chronic respiratory failure with hypoxia; J18.9 Pneumonia, unspecified organism; I50.33 Acute on chronic diastolic (congestive) heart failure; I13.0 Hypertensive heart and chronic kidney disease with heart failure and stage 1 through stage 4 chronic kidney disease, or unspecified chronic kidney disease; G93.89 Other specified disorders of brain; E87.5 Hyperkalemia; N18.3 Chronic kidney disease, stage 3 (moderate); J96.22 Acute and chronic respiratory failure with hypercapnia; J44.0 Chronic obstructive pulmonary disease with (acute) lower respiratory infection; G47.33 Obstructive sleep apnea (adult) (pediatric); E78.5 Hyperlipidemia, unspecified; R91.1 Solitary pulmonary nodule; I07.1 Rheumatic tricuspid insufficiency; Z79.82 Long term (current) use of aspirin; Z79.02 Long term (current) use of antithrombotics/antiplatelets; Z79.52 Long term (current) use of systemic steroids; I73.9 Peripheral vascular disease, unspecified; F17.210 Nicotine dependence, cigarettes, uncomplicated; T38.0X5A Adverse effect of glucocorticoids and synthetic analogues, initial encounter; Z82.49 Family history of ischemic heart disease and other diseases of the circulatory system; E78.00 Pure hypercholesterolemia, unspecified; M46.90 Unspecified inflammatory spondylopathy, site unspecified; Z80.8 Family history of malignant neoplasm of other organs or systems; Z86.73 Personal history of transient ischemic attack (TIA), and cerebral infarction without residual deficits; Z23 Encounter for immunization
CPT/HCPCS: 36415; 36600; 70450; 71010; 71275; 80048; 80053; 81003; 81015; 82550; 82553; 82803; 83605; 83690; 83735; 83880; 84100; 84443; 84484; 85025; 85027; 85379; 85610; 85730; 86140; 87040; 87070; 87086; 87205; 87502; 87899; 90686; 93005; 93306; 94002; 94003; 94640; 94660; 94760; 95816; A9270-GY; J0456; J0696; J1644; J1940; J2060; J2704; J2930; J7512; Q9967

== ENCOUNTER 2017-02-16 13:48 | Inpatient (IN) | payer MEDICARE ==
[2017-02-16] MEDS ORDERED: Albuterol/Ipratropium NEB.SOL* Albuterol 2.5 MG/Ipratropium 0.5 MG 3 ML INH ONE (13:54)
[2017-02-16] MEDS ORDERED: methylPREDNISolone 125 MG* 2 ML VIAL IV ONE (13:54)
[2017-02-16] MEDS ORDERED: Levofloxacin 750 MG IVPREMIX(* 750 MG/150 ML BAG IVPB ONE (14:20)
--- NOTE | 2017-02-16 14:29 | RAD ---
Indication: Shortness of breath. Comparison: February 08, 2017 Technique: Upright AP 1357 hours Report: Airspace consolidation most prominent at the lateral segment of the RIGHT middle lobe and trace fluid at the dependent RIGHT thorax and minor fissure. Negative for pneumothorax. IMPRESSION: RIGHT middle lobe pneumonia. The heart, pulmonary vasculature, and mediastinal contours are unremarkable.
[2017-02-16 14:57] LABS: Hematocrit 30 % (35-47); Hemoglobin 9.2 g/dl (12.0-16.0); Mean Corpuscular HGB Conc 31 g/dl (31-36); Mean Corpuscular Hemoglobin 29 pg (27-31); Mean Corpuscular Volume 94 fL (80-97); Mean Platelet Volume 10 um3 (7.4-10.4); Red Blood Count 3.18 10^6/ul (4.0-5.4); Red Cell Distribution Width 17 % (10.5-15); White Blood Count 21.4 10^3/ul (3.5-10.8)
[2017-02-16 14:58] LABS: Add Diff/Slide Review? Slide Review Added; Comments Flag Yes
[2017-02-16 15:11] LABS: Albumin 3.6 g/dL (3.2-5.2); BUN/Creatinine Ratio 23.6 (8-20); C Reactive Protein 2.94 mg/L (< 5.00); Calcium 9.2 mg/dL (8.6-10.3); EGFR African American 40.7 (>60); EGFR Non-African American 31.6 (>60); Globulin 2.6 g/dL (2-4); Magnesium 2.3 mg/dL (1.9-2.7); Potassium 4.4 mmol/L (3.5-5.0); Total Bilirubin 0.5 mg/dL (0.2-1.0); Total Protein 6.2 g/dL (6.4-8.9)
[2017-02-16 15:19] LABS: TSH (Thyroid Stimulating Horm) 1.07 mcIU/mL (0.34-5.60)
[2017-02-16 15:36] LABS: Troponin I 6.65 ng/mL (<0.04)
[2017-02-16] MEDS ORDERED: Aspirin Low Dose CHEW TAB* 81 MG PO ONE (15:55)
[2017-02-16 16:24] LABS: Urine Bacteria Absent (Absent); Urine Bilirubin Negative (Negative); Urine Glucose Negative (Negative); Urine Nitrite Negative (Negative)
[2017-02-16] MEDS ORDERED: Heparin DRIP 25,000 UNITS(*) 25,000 UNITS/500 ML BAG IVPB SCH (17:00)
[2017-02-16] MEDS ORDERED: Heparin VIAL(*) 5000 UNITS/ML VIAL (FIVE THOUSAND) IV SCH ×2 (17:00→18:00)
[2017-02-16] MEDS ORDERED: Furosemide IV* 10 MG/ML 2 ML VIAL (20 MG) IV ONE (17:54)
[2017-02-16] MEDS ORDERED: Ipratropium 0.5MG/2.5ML NEB* 0.5 MG/2.5 ML NEB.SOLN INH SCH (18:00)
[2017-02-16] MEDS ORDERED: Albuterol 2.5 MG/3 ML NEB.SOL* (0.083%) INH SCH (18:00)
[2017-02-16] MEDS: methylPREDNISolone SOD 40 MG* 1 ML VIAL IV SCH (18:44)
[2017-02-16] MEDS: Heparin DRIP 25,000 UNITS(*) 25,000 UNITS/500 ML BAG IV SCH (18:55)
[2017-02-16 19:17] LABS: Hematocrit 28 % (35-47); Hemoglobin 8.5 g/dl (12.0-16.0); Mean Corpuscular HGB Conc 31 g/dl (31-36); Mean Corpuscular Hemoglobin 29 pg (27-31); Mean Corpuscular Volume 94 fL (80-97); Mean Platelet Volume 10 um3 (7.4-10.4); Red Blood Count 2.96 10^6/ul (4.0-5.4); Red Cell Distribution Width 17 % (10.5-15); White Blood Count 15.6 10^3/ul (3.5-10.8)
[2017-02-16] MEDS: Albuterol/Ipratropium NEB.SOL* Albuterol 2.5 MG/Ipratropium 0.5 MG 3 ML INH SCH ×2 (19:25→23:28)
[2017-02-16 19:37] LABS: Troponin I 10.84 ng/mL (<0.04)
--- NOTE | 2017-02-16 20:36 | HP ---
HISTORY AND PHYSICAL: DATE OF ADMISSION: 02/16/17 PRIMARY CARE PHYSICIAN: Dr. Holbrook CHIEF COMPLAINT: Shortness of breath. HISTORY OF PRESENT ILLNESS: This is a 71-year-old female with a history of COPD , on home oxygen, who was discharged from the hospital 2 days ago and comes back to emergency department today with ongoing shortness of breath. She and her daughter agree that when she went home, she continued to be short of breath and dyspneic on exertion and did not improve over the next 48 hours, so they decided to come back to the emergency department today. She cannot describe any change that occurred today and denied chest pain, palpitations, dizziness, cough or fevers, but just felt like she could not catch her breath today. She was able to fill all of her discharge medications without any problem and was taking them without side effects. She feels a little better since being here and continues to deny ever having chest pain. While she is usually able to ambulate around her house without difficulty, since she got home from the hospital she was unable to even walk to the bathroom. PAST MEDICAL HISTORY: Chronic kidney disease, chronic hypoxic respiratory failure, on 4 L home oxygen, VEENA, PVD, CVA, diastolic heart failure, hypertension. PAST SURGICAL HISTORY: Carotid endarterectomy, hysterectomy. MEDICATIONS: Current home medications, based on her last discharge summary: 1. Amlodipine 10 mg daily. 2. Prednisone taper, currently at 40 mg daily. 3. Gabapentin 200 mg p.o. q. h.s. 4. Lovastatin 20 mg p.o. daily. 5. Irbesartan 300 mg p.o. daily. 6. Aspirin 81 mg p.o. daily. 7. Symbicort 160/4.5, one puff inhaled b.i.d. 8. DuoNeb 2.5/0.5 inhaled q.4 p.r.n. shortness of breath. 9. Spiriva 1 inhalation daily. 10. Iron 150 mg p.o. daily. 11. Singulair 10 mg p.o. daily. 12. Vitamin B12, 1000 mcg p.o. daily. 13. Plavix 75 mg p.o. daily. 14. Albuterol HFA 2 puffs inhaled q.4 p.r.n. shortness of breath. 15. Metoprolol succinate 100 mg p.o. daily. SOCIAL HISTORY: She lives alone, but her daughter, Joann, comes to check in on her every day. She is not currently smoking, but is a former smoker. She denies alcohol or other illicit drugs. REVIEW OF SYSTEMS: A 12-point review of system is negative other than stated in the history of present illness. PHYSICAL EXAMINATION GENERAL: Alert, mildly uncomfortable female, obese. VITAL SIGNS: Temp 96.5, heart rate 87, respiratory rate 29, O2 sat 97% on 6 L, blood pressure 140/56. HEENT: Edentulous. No sinus tenderness. Moist mucosa. No pharyngeal exudate or erythema. Pupils equal, round and reactive to light. NECK: Right carotid endarterectomy scar. No JVP. No cervical lymphadenopathy. LUNGS: Diffusely rhonchorous with end expiratory wheezing and prolonged expiratory phase. HEART: Regular rate and rhythm. No murmurs. ABDOMEN: Obese, soft, nontender, and nondistended. Scattered ecchymosis from Lovenox injections recently. EXTREMITIES: 2+ bilateral lower extremity edema to the knees. No clubbing. Strength 5+ bilaterally. DIAGNOSTIC STUDIES/LAB DATA: On admission, troponin 6.65. White blood cells 21.4, hemoglobin 9.2, platelets 217. Sodium 144, potassium 4.4, chloride 105, bicarb 33, BUN 38, creatinine 1.61. BNP 730. EKG: Normal sinus rhythm, normal axis, normal intervals. [address] depression laterally in V4 through V6. Chest x-ray showed a right middle lobe pneumonia. ASSESSMENT AND PLAN: This is a 71-year-old female with a recent admission for acute hypoxic respiratory failure requiring intubation and chronic obstructive pulmonary disease exacerbation with pneumonia, presenting with ongoing shortness of breath since discharge. 1. [id number]-auzqjax hypoxic respiratory failure. Her usual oxygen requirement is 4 L and she is currently requiring 6 L of oxygen. However, hypoxia was not recorded in the emergency department. This is likely secondary to ongoing bronchospasm and perhaps an inadequately treated pneumonia on last admission, however her sputum stain showed only yeast and normal fabiana. Resume IV Solu- Medrol and standing nebulizers. Check sputum cultures. She did complete a 5- day course of azithromycin and 7-day course of ceftriaxone on her last hospitalization, so it is possible that the radiographic evidence of pneumonia is simply lagging from her last admission and this is not an ongoing infection. She does not have pneumonia clinically at this point, but if she does appear infected over the next few days,, she should be treated for HCAP given her recent hospitalization and ongoing decompensation. 2. Non-ST elevation myocardial infarction. Initial troponin is 6.65, with ischemic EKG changes of 1-mm ST depressions laterally; however, she denies all chest pain. It is possible that this non-ST elevation myocardial infarction is type 2 in relation to hypoxia. However, I would not expect this level of troponin elevation with her level of hypoxia and given her history of diffuse vasculopathy, a type 1 non-ST elevation myocardial infarction is certainly possible. I am treating her with heparin drip, continuing her antiplatelet therapy, continuing her beta-georgette, and continuing her statin. I appreciate Cardiology input regarding ischemic evaluation with a left heart cath, which likely cannot be done right away given her decompensated respiratory status. We will continue to trend troponins and monitor on telemetry. 3. Diastolic heart failure. She does not have evidence of volume overload on my exam, except bilateral lower extremity edema. She may benefit from gentle IV diuresis with Lasix. 4. Obstructive sleep apnea. She was started on CPAP at last hospitalization, but was not discharged with one, and was instructed to follow up with Dr. Funk. We will continue nocturnal CPAP here, if she tolerates it. 5. Cerebrovascular accident. No residual deficits. Continue aspirin, statin, and Plavix. 6. Chronic kidney disease. Her renal function is at baseline. 7. DVT prophylaxis. She is on therapeutic anticoagulation. 8. She is willing to be intubated, if it is required, and resuscitated. Her healthcare proxy is her daughter, Joann. Her phone number is [phone] or [phone]. [id number]/[facility] #: [id number] [place]
[2017-02-16] MEDS ORDERED: Isosorbide Dinitrate TAB* 10 MG PO SCH (21:00)
[2017-02-16] MEDS ORDERED: Nitroglycerin 0.2 MG/HR PATCH* (5 MG) TRANSDERM SCH (21:00)
[2017-02-16] MEDS: Gabapentin CAP(*) 100 MG PO SCH (21:06)
[2017-02-16] MEDS: Atorvastatin* 40 MG TAB PO SCH (21:07)
[2017-02-16] MEDS: Clopidogrel TAB* 75 MG PO SCH (21:36)
--- NOTE | 2017-02-16 22:12 | ED ---
Margy You Alfonso, scribed for Kong Ortiz MD on 02/16/17 at 1400 . Shortness of Breath - HPI Summary HPI Summary: This patient is a 71 year old F BIBA to [facility] with a chief complaint of SOB worse since this morning. Symptoms aggravated by nothing. Symptoms alleviated by nothing. Patient reports calf pain, and calf swelling. Patient denies fever, chills, productive cough, and CP. She was admitted to [facility] from 02/05/17- with PRIMARY DIAGNOSES of 1. Community-acquired pneumonia. 2. Chronic obstructive pulmonary disease exacerbation. 3. Acute on chronic respiratory failure, improved. 4. Acute on chronic heart failure. 5. Lung nodule. PMHx includes COPD. - History of Current Complaint Chief Complaint: EDShortnessOfBreath Hx Obtained From: Patient Onset/Duration: Sudden Onset, Lasting Hours, Worse Since - morning Timing: Constant Aggrevating Factors: Nothing Alleviating Factors: Nothing Associated Signs & Symptoms: Calf Pain/Swelling Related History: Similar Episode - admitted to [facility] from 02/05/17- 02/14/17 - Allergy/Home Medications Allergies/Adverse Reactions: Allergies Allergy/AdvReac Type Severity Reaction Status Date / Time No Known Allergies Allergy Verified 12/09/16 21:59 PMH/Surg Hx/FS Hx/Imm Hx Endocrine/Hematology History: Denies: Hx Diabetes Cardiovascular History: Reports: Hx Hypercholesterolemia, Hx Hypertension Denies: Hx Angina, Hx Coronary Artery Disease, Hx Myocardial Infarction, Hx Pacemaker/ICD, Hx Valvular Heart Disease Respiratory History: Reports: Hx Chronic Obstructive Pulmonary Disease (COPD), Other Respiratory Problems/Disorders Denies: Hx Asthma History: Reports: Other Problems/Disorders - chronic renal insufficiency Musculoskeletal History: Reports: Hx Arthritis - LOWER BACK Sensory History: Reports: Hx Contacts or Glasses - reading Denies: Hx Hearing Aid Opthamlomology History: Reports: Hx Contacts or Glasses - reading Psychiatric History: Denies: Hx Panic Disorder - Cancer History Cancer Type, Location and Year: Cervical 2016, hysterectomy performed, was curative Hx Chemotherapy: No Hx Radiation Therapy: No - Surgical History Surgery Procedure, Year, and Place: CAROTID ARTERY STENT 2009 AT [place]; lap hysterectomy at [facility] Hx Anesthesia Reactions: No - Immunization History Date of Tetanus Vaccine: unknown Date of Influenza Vaccine: 2015 - Family History Known Family History: Positive: Other - POS: [place], throat - Social History Alcohol Use: None Substance Use Type: Reports: None Hx Tobacco Use: Yes Smoking Status (MU): Heavy Every Day Tobacco Smoker Type: Cigarettes Amount Used/How Often: 1 PPD Length of Time of Smoking/Using Tobacco: 40 YRS. Have You Smoked in the Last Year: Yes Review of Systems Negative: Fever, Chills Negative: Chest Pain Positive: Shortness Of Breath. Negative: Cough Positive: Other - calf pain, and calf swelling All Other Systems Reviewed And Are Negative: Yes Physical Exam Triage Information Reviewed: Yes Vital Signs On Initial Exam: Initial Vitals Temp Pulse Resp BP Pulse Ox 96.5 F 92 29 140/56 97 02/16/17 13:55 02/16/17 13:55 02/16/17 13:55 02/16/17 13:55 02/16/17 13:55 Vital Signs Reviewed: Yes Appearance: Positive: Well-Appearing, No Pain Distress Skin: Positive: Warm, Skin Color Reflects Adequate Perfusion, Dry Head/Face: Positive: Normal Head/Face Inspection Eyes: Positive: EOMI, MAX ENT: Positive: Normal ENT inspection Neck: Positive: Supple, Nontender Respiratory/Lung Sounds: Positive: Other - Moderate respiratory distress. Poor air way movement bilaterally. Able to speak in incomplete sentences. Cardiovascular: Positive: RRR Abdomen Description: Positive: Nontender, Soft Bowel Sounds: Positive: Present Musculoskeletal: Positive: Strength/ROM Intact, Other - Trace pedal edema. Neurological: Positive: Normal, Sensory/Motor Intact, Alert, Oriented to Person Place, Time Psychiatric: Positive: Affect/Mood Appropriate Diagnostics - Vital Signs Vital Signs Temp Pulse Resp BP Pulse Ox 02/16/17 16:30 82 129/54 95 02/16/17 16:01 82 106/56 97 02/16/17 16:00 85 97 02/16/17 15:30 96/77 02/16/17 15:29 77 100 02/16/17 14:08 89 29 100 02/16/17 13:55 96.5 F 92 29 140/56 97 - Laboratory Lab Results: Lab Results 02/16/17 02/16/17 02/16/17 Range/Units 14:35 14:35 14:35 WBC (3.5-10.8) 10^3/ul RBC (4.0-5.4) 10^6/ul Hgb (12.0-16.0) g/dl Hct (35-47) % MCV (80-97) fL MCH (27-31) pg MCHC (31-36) g/dl RDW (10.5-15) % Plt Count (150-450) 10^3/ul MPV (7.4-10.4) um3 Neut % (Auto) (38-83) % Lymph % (Auto) (25-47) % [place] % (Auto) (1-9) % Eos % (Auto) (0-6) % Baso % (Auto) (0-2) % Absolute Neuts (auto) (1.5-7.7) 10^3/ul Absolute Lymphs (auto) (1.0-4.8) 10^3/ul Absolute Monos (auto) (0-0.8) 10^3/ul Absolute Eos (auto) (0-0.6) 10^3/ul Absolute Basos (auto) (0-0.2) 10^3/ul Absolute Nucleated RBC 10^3/ul Nucleated RBC % INR (Anticoag Therapy) 0.86 L (0.89-1.11) APTT 24.7 L (26.0-36.3) seconds D-Dimer, Quantitative 438 H (Less Than 230) ng/mL Sodium 144 (133-145) mmol/L Potassium 4.4 (3.5-5.0) mmol/L Chloride 105 (101-111) mmol/L Carbon Dioxide 33 H (22-32) mmol/L Anion Gap 6 (2-11) mmol/L BUN 38 H (6-24) mg/dL Creatinine 1.61 H (0.51-0.95) mg/dL Est GFR ( Amer) 40.7 (>60) Est GFR (Non-Af Amer) 31.6 (>60) BUN/Creatinine Ratio 23.6 H (8-20) Glucose 108 H (70-100) mg/dL Lactic Acid (0.5-2.0) mmol/L Calcium 9.2 (8.6-10.3) mg/dL Magnesium 2.3 (1.9-2.7) mg/dL Total Bilirubin 0.50 (0.2-1.0) mg/dL AST 87 H (13-39) U/L ALT 167 H (7-52) U/L Alkaline Phosphatase 104 (34-104) U/L Total Creatine Kinase 760 H (10-223) U/L CK-MB (CK-2) 67.8 H (0.6-6.3) ng/mL Troponin I 6.65 H* (<0.04) ng/mL C-Reactive Protein 2.94 (< 5.00) mg/L B-Natriuretic Peptide 730 H ( - 100) pg/mL Total Protein 6.2 L (6.4-8.9) g/dL Albumin 3.6 (3.2-5.2) g/dL Globulin 2.6 (2-4) g/dL Albumin/Globulin Ratio 1.4 (1-3) Lipase 17 (11.0-82.0) U/L TSH 1.07 (0.34-5.60) mcIU/mL Urine Color Urine Appearance Urine pH (5-9) Ur Specific [place] (1.010-1.030) Urine Protein (Negative) Urine Ketones (Negative) Urine Blood (Negative) Urine Nitrate (Negative) Urine Bilirubin (Negative) Urine Urobilinogen (Negative) Ur Leukocyte Esterase (Negative) Urine WBC (Auto) (Absent) Urine RBC (Auto) (Absent) Ur Squamous Epith Cells (Absent) Urine Bacteria (Absent) Hyaline Casts (Absent) Urine Yeast (Absent) Urine Glucose (Negative) 02/16/17 02/16/17 02/16/17 Range/Units 14:35 14:35 15:45 WBC 21.4 H (3.5-10.8) 10^3/ul RBC 3.18 L (4.0-5.4) 10^6/ul Hgb 9.2 L (12.0-16.0) g/dl Hct 30 L (35-47) % MCV 94 (80-97) fL MCH 29 (27-31) pg MCHC 31 (31-36) g/dl RDW 17 H (10.5-15) % Plt Count 219 (150-450) 10^3/ul MPV 10 (7.4-10.4) um3 Neut % (Auto) 87.0 H (38-83) % Lymph % (Auto) 6.8 L (25-47) % [place] % (Auto) 5.7 (1-9) % Eos % (Auto) 0.1 (0-6) % Baso % (Auto) 0.4 (0-2) % Absolute Neuts (auto) 18.6 H (1.5-7.7) 10^3/ul Absolute Lymphs (auto) 1.5 (1.0-4.8) 10^3/ul Absolute Monos (auto) 1.2 H (0-0.8) 10^3/ul Absolute Eos (auto) 0 (0-0.6) 10^3/ul Absolute Basos (auto) 0.1 (0-0.2) 10^3/ul Absolute Nucleated RBC 0.01 10^3/ul Nucleated RBC % 0 INR (Anticoag Therapy) (0.89-1.11) APTT (26.0-36.3) seconds D-Dimer, Quantitative (Less Than 230) ng/mL Sodium (133-145) mmol/L Potassium (3.5-5.0) mmol/L Chloride (101-111) mmol/L Carbon Dioxide (22-32) mmol/L Anion Gap (2-11) mmol/L BUN (6-24) mg/dL Creatinine (0.51-0.95) mg/dL Est GFR ( Amer) (>60) Est GFR (Non-Af Amer) (>60) BUN/Creatinine Ratio (8-20) Glucose (70-100) mg/dL Lactic Acid 1.2 (0.5-2.0) mmol/L Calcium (8.6-10.3) mg/dL Magnesium (1.9-2.7) mg/dL Total Bilirubin (0.2-1.0) mg/dL AST (13-39) U/L ALT (7-52) U/L Alkaline Phosphatase (34-104) U/L Total Creatine Kinase (10-223) U/L CK-MB (CK-2) (0.6-6.3) ng/mL Troponin I (<0.04) ng/mL C-Reactive Protein (< 5.00) mg/L B-Natriuretic Peptide ( - 100) pg/mL Total Protein (6.4-8.9) g/dL Albumin (3.2-5.2) g/dL Globulin (2-4) g/dL Albumin/Globulin Ratio (1-3) Lipase (11.0-82.0) U/L TSH (0.34-5.60) mcIU/mL Urine Color Yellow Urine Appearance Clear Urine pH 5.0 (5-9) Ur Specific [place] 1.014 (1.010-1.030) Urine Protein Negative (Negative) Urine Ketones Negative (Negative) Urine Blood 1+ H (Negative) Urine Nitrate Negative (Negative) Urine Bilirubin Negative (Negative) Urine Urobilinogen Negative (Negative) Ur Leukocyte Esterase Negative (Negative) Urine WBC (Auto) Trace(0-5/hpf) (Absent) Urine RBC (Auto) Trace(0-2/hpf) (Absent) Ur Squamous Epith Cells Present H (Absent) Urine Bacteria Absent (Absent) Hyaline Casts Present H (Absent) Urine Yeast Present H (Absent) Urine Glucose Negative (Negative) Result Diagrams: 02/16/17 18:55 02/16/17 18:55 Lab Statement: Any lab studies that have been ordered have been reviewed, and results considered in the medical decision making process. - Radiology CXR Radiology Interpretation Completed By: Radiologist - RIGHT middle lobe pneumonia. The heart, pulmonary vasculature, and mediastinal contours are unremarkable. ED physician has reviewed this radiology report and agrees. - EKG 1415 Cardiac Rate: NL - BPM 87 EKG Rhythm: Sinus Rhythm Ectopy: None EKG Interpretation: ST depression in V5-V6 Course/Dx - Course Course Of Treatment: ADMIT HOSPITALIST - Diagnoses Provider Diagnoses: COPD (chronic obstructive pulmonary disease), Myocardial infarct, Pneumonia - Physician Notifications Discussed Care of Patient With: Yadiel Grant Time Discussed With Above Provider: 16:23 Instructed by Provider To: Other - Consulted Dr. Grant (food service employee) regarding plan for course of treatment. - Critical Care Time Critical Care Time: 30-74 min Discharge - Discharge Plan Condition: Guarded Disposition: ADMITTED TO [facility] documentation as recorded by the Margy brower Alfonso accurately reflects the service I personally performed and the decisions made by me, Kong Ortiz MD.
--- NOTE | 2017-02-16 23:52 | CONS ---
CC: Dr. Holbrook; Dr. Yadiel Grant CARDIOLOGY CONSULTATION: DATE OF CONSULT: 02/16/17 PATIENT OF: Dr. Holbrook. CONSULTING PHYSICIAN: Dr. Encarnacion. REASON FOR EVALUATION: Non-ST elevation DE. HISTORY OF PRESENT ILLNESS: This is a 71-year woman with severe COPD, renal insufficiency, vascular disease, hyperlipidemia, who is O2 dependent. She recently had a complicated hospitalization for pneumonia requiring intubation. She was discharged a couple of days ago. Today, she said while lying in bed, she noticed that she was more short of breath. According to the ER doc, she had some chest tightness, which resolved. The patient denied any chest pain or chest pressure to me. She came to the ER and was thought to have COPD exacerbation, but then was noted to have an elevated troponin of approximately 6. She has been started on IV heparin and she just received a dose of Lasix for an elevated BNP. She reports that she is feeling somewhat better now. She denies any chest pain. She denies palpitations, syncope or near syncope. No orthopnea or PND. She does report that she has had edema, which was better when elevating her legs at home, says her weight seems to be about where it was when she was discharged at [facility]. She does have a cough occasionally productive of brown sputum, which she said it has been present for the last few days. She denies fevers or chills. No dysuria. No diarrhea. No nausea or vomiting. PAST MEDICAL HISTORY: Include COPD after approximately [id number] history discontinued about 7 years ago, she is O2 dependent; renal insufficiency, seen by Dr. Elizalde; CVA in 2009, followed by a right carotid endarterectomy, she said she is followed by Vascular Surgery at [facility], and is anticipating possible left carotid revascularization, she has hyperlipidemia, obesity, recent pneumonia, possible GI bleeding in the past which she denied but was listed in the history, obstructive sleep apnea but she does not tolerate CPAP. Hospitalization from 02/05/17 to 02/14/17 was complicated by respiratory failure, hyperkalemia, and severe acidemia, and she had an electroencephalogram on 02/06/17 and there was no clear-cut epileptiform potentials on an intubated and sedated patient on propofol. PAST SURGICAL HISTORY: Includes carotid endarterectomy in the right side and a hysterectomy a year ago for possible cancer, but she is not sure what kind. MEDICATIONS AT HOME: Include: 1. Irbesartan 300 mg a day. 2. Neurontin 200 mg at bedtime. 3. Vitamin B12 1000 units a day. 4. Clopidogrel 75 mg a day. 5. Symbicort 1 puff b.i.d. 6. Aspirin 81 mg a day. 7. Lovastatin 20 mg a day. 8. Albuterol DuoNeb inhaler q.4 p.r.n. 9. Metoprolol succinate 100 mg a day. 10. Prednisone 40 mg a day. 11. Amlodipine 10 mg a day. 12. Singulair 10 mg a day. 13. Ferrex 150 one a day. As an inpatient, she is on: 1. DuoNeb. 2. Aspirin. 3. Atorvastatin 40. 4. Vitamin B12 1000 units a day. 5. Neurontin 200 mg at bedtime. 6. IV heparin as per protocol. 7. Losartan 25 mg a day. 8. Solu-Medrol 40 mg q.8. 9. Metoprolol 100 mg daily. 10. Singulair 10 mg a day. ALLERGIES: She denies any allergies. FAMILY HISTORY: She has a sister, Inga, who is alive; one sister, Nida, who in June of complications of COPD, heart disease, vascular disease; 2 brothers, 1 who had coronary disease. Father in his 60. Mother in her 70s, carbon dioxide poisoning. SOCIAL HISTORY: She is a , has 1 daughter. She drinks 2 to 3 cups of caffeinated coffee a day. She used to drink alcohol for about 8 years ago and she discontinued, she said she drinks heavily at times, but none in 8 years. REVIEW OF SYSTEMS: Review of systems x10 was negative except as above. PHYSICAL EXAM: She is a well-developed, obese female, mildly short of breath. Blood pressure 115/57, heart rate of 82, O2 sat 99% on 5 L nasal cannula. No significant JVD. Carotids: Endarterectomy scar in the right and bruits bilaterally. Cardiac Exam: S1, S2. No clear murmurs, gallops, or rubs. Chest with decreased breath sounds, prolonged expiratory phase, minimal air movement. No CVAT. Abdominal Exam: Obese. Bowel sounds present, difficult to determine hepatosplenomegaly. Femoral pulses were present with the right femoral bruit. Left femoral pulse is diminished. Distal pulses are present, but diminished. There was trace edema. Motor strength 5/5 bilaterally. Deep tendon reflexes 2/4. Alert and oriented x3. DIAGNOSTIC STUDIES/LAB DATA: Include sodium 144, potassium of 4.4, BUN of 38, creatinine of 1.6. Transaminases mildly elevated, 87 AST and ALT of 167. CK elevated at 760. Troponin of 6.65 at 14:35 and 10.84 at 18:55. BNP elevated at 730; on 02/05/17, it was 284. Of note, her last troponin prior to this was 0.04 on 02/06/17. Her EKG from 02/16/17 at 14:15 revealed sinus rhythm at 87 with 1-mm inferolateral ST depressions, which were more pronounced compared to 02/06/17. She also found to have a 0.5-mm ST depression in those leads. She had minor non -specific inferolateral ST depressions in November, which were less pronounced. Her EKG from October of 2009 appeared to be fairly remarkable. Chest x-ray from today revealed right middle lobe pneumonia, trace fluid at the dependent right thorax, and minor fissure. She had an echocardiogram performed on 02/06/17 on prior admission, which revealed technically limited study, moderate concentric LVH, hyperdynamic, EF greater than 65%, abnormal diastolic function stage I, no obvious valvular pathology with trace TR. CTA of her chest on 02/05/17 revealed no evidence of pulmonary embolism, bilateral infiltrates, most consistent with pneumonia, a small pericardial effusion, small right middle lobe pulmonary nodule, consider PET scan for further evaluation, nodule 8 x 6 mm. INR 0.86. D-dimer of 438. White count of 15.6, hemoglobin 8.5, hematocrit of 28, platelet count of 189, and her hematocrit is up from 25 on 02/13/17 and 23 on 02/12/17. IMPRESSION AND PLAN: My impression is that Ms. Lambert had a non-ST elevation myocardial infarction in the setting of severe comorbidities including severe chronic obstructive pulmonary disease, renal insufficiency, hypertension, and recent pneumonia. Her prognosis is guarded given her age and comorbidities and non- ST elevation myocardial infarction associated with what appears to be heart failure. She also had 2 runs of non-sustaining ventricular tachycardia while examining her up to 7 beats, and dynamic ST changes compared to her 2 EKGs from today. I did discuss the case with Dr. Encarnacion as well as our interventionalist, Dr. Gonzalez. The plan is as follows: Given her tenuous status, I expressed consideration of using BiPAP and perhaps transferring to unit for close observation. I agree with IV Lasix as you are doing to try to improve her volume status and respiratory status. Would continue supplemental oxygen as you are doing. Would suggest adding nitrates if her blood pressure will tolerate. Would continue beta georgette and perhaps consider b.i.d. dosing to try to even out her blood pressure control and heart rate control. Would follow serial EKGs and troponins. Would continue statins at a high dose. Would continue IV heparin, aspirin, and Plavix. I have discussed the condition with the patient and the potential risks of DE including heart failure and . I have also discussed the potential risks of evaluation with cardiac catheterization, the potential for worsening renal failure, stroke, and perhaps the need for dialysis. She understands and agrees to proceed with cardiac catheterization. Dr. Gonzalez is aware of her condition. Hopefully, we can optimize her respiratory status before performing catheterization. Given that her EKG changes have improved and she is not having chest pain at present, respiratory status seems to be improving, I think we can defer catheterization until tomorrow or the next day; however, if she has worsening ischemia, she may require more urgent evaluation. [id number] #: [id number] [place]
[2017-02-17] MEDS ORDERED: Furosemide IV* 10 MG/ML 2 ML VIAL (20 MG) IV ONE ×2 (01:41→08:21)
[2017-02-17] MEDS ORDERED: Furosemide IV* 10 MG/ML 2 ML VIAL (20 MG) ONE (01:49)
[2017-02-17] MEDS: methylPREDNISolone SOD 40 MG* 1 ML VIAL IV SCH ×3 (01:51→17:55)
[2017-02-17] MEDS: Albuterol/Ipratropium NEB.SOL* Albuterol 2.5 MG/Ipratropium 0.5 MG 3 ML INH SCH ×4 (03:10→20:17)
[2017-02-17 06:18] LABS: Hematocrit 26 % (35-47); Hemoglobin 8.1 g/dl (12.0-16.0); Mean Corpuscular HGB Conc 32 g/dl (31-36); Mean Corpuscular Hemoglobin 29 pg (27-31); Mean Corpuscular Volume 93 fL (80-97); Mean Platelet Volume 10 um3 (7.4-10.4); Red Blood Count 2.77 10^6/ul (4.0-5.4); Red Cell Distribution Width 17 % (10.5-15); White Blood Count 15.8 10^3/ul (3.5-10.8)
[2017-02-17 06:19] LABS: Add Diff/Slide Review? Manual Diff Added; Comments Flag Yes
[2017-02-17 06:33] LABS: BUN/Creatinine Ratio 24.6 (8-20); Blood Urea Nitrogen 43 mg/dL (6-24); CO2 Carbon Dioxide 30 mmol/L (22-32); Calcium 9.3 mg/dL (8.6-10.3); Chloride 101 mmol/L (101-111); Cholesterol 171 mg/dL; EGFR Non-African American 28.7 (>60); Glucose 157 mg/dL (70-100); Sodium 142 mmol/L (133-145)
[2017-02-17 06:40] LABS: Troponin I 4.96 ng/mL (<0.04)
[2017-02-17 06:41] LABS: Add Path Review? YES; Hypochromasia 2+; Neutrophil % 95 % (38-83)
[2017-02-17 08:39] LABS: Anion Gap 11 mmol/L (2-11)
[2017-02-17] MEDS ORDERED: Albuterol HFA INHALER* 8 gm MDI INH SCH (09:00)
[2017-02-17] MEDS ORDERED: Losartan TAB* 25 MG PO SCH (09:00)
[2017-02-17] MEDS ORDERED: Influenza VAC *QUAD* 2017-18* 0.5 ML SYRINGE IM ONE (09:00)
[2017-02-17] MEDS ORDERED: Metoprolol Succinate XL TAB* 100 MG PO SCH (09:00)
[2017-02-17] MEDS: Metoprolol Succinate XL TAB* 50 MG PO SCH ×2 (09:36→21:15)
[2017-02-17] MEDS: Clopidogrel TAB* 75 MG PO SCH (09:36)
[2017-02-17] MEDS: Cyanocobalamin TAB* 500 MCG PO SCH (09:36)
[2017-02-17] MEDS: Aspirin EC Low Dose* 81 MG TAB.EC PO SCH (09:36)
[2017-02-17] MEDS: Montelukast Sodium TAB* 10 MG PO SCH (09:37)
[2017-02-17] MEDS ORDERED: Potassium Chlor TAB* 20 MEQ TAB.ER PO ONE (10:53)
[2017-02-17 11:20] LABS: HDL Cholesterol 66.5 mg/dL; LDL Cholesterol 84 mg/dL; Triglycerides 104 mg/dL
[2017-02-17] MEDS: Albuterol HFA INHALER* 8 gm MDI INH SCH ×2 (11:40→15:50)
--- NOTE | 2017-02-17 14:05 | ECHO ---
Patient: JYOTI MONTES [facility] Rec#: [id number] : 1945 Date: 02/17/2017 Age: 71y Height: 157.48 cm / 62.0 in Weight: 75.75 kg / 167.0 lbs Sex: F BSA: 1.77 Room#: ICU-3 Admit Date#: 02/16/2017 Type: Inpatient Referring: Yadiel Grant MD Reading: Rajeev Jiang MD Adhesive Bandage Making Operator: Lilia LynnNORTH CC: Prosper Holbrook MD Transthoracic Echocardiogram Indication: NSTEMI BP: 119/55 HR: 101 Rhythm: NSR with PACs Findings History: CKD, VEENA, PD, CVA, diastolic heart failure, HTN, and chronic hypoxic respiratory failure. Technical Comments: The study quality is poor. The study was technically limited due to the patient's inability to lay in the left lateral decubitus position. Study was performed with patient in reclining chair. Completed at 1345. Left Ventricle: The left ventricular chamber size is normal. Mild concentric left ventricular hypertrophy is observed. The left ventricle appears hyperdynamic. The estimated ejection fraction is greater than 65%. Abnormal left ventricular diastolic function is observed. Abnormal left ventricular diastolic filling is observed, consistent with impaired relaxation. Left Atrium: The left atrium is slightly dilated. Right Ventricle: Moderator Band present. The right ventricular cavity size is normal. The right ventricle wall thickness is moderately increased. The right ventricular global systolic function is normal. Right Atrium: The right atrial cavity size is normal. Aortic Valve: The aortic valve structure is not well visualized. There is no evidence of aortic regurgitation. There is no evidence of aortic stenosis. Mitral Valve: There is mitral annular calcification. There is a trace of mitral regurgitation. There is no evidence of mitral stenosis. Tricuspid Valve: The tricuspid valve leaflets are normal. There is trace tricuspid regurgitation. There is evidence that pulmonary hypertension may be underestimated. There is no tricuspid stenosis. Pulmonic Valve: The pulmonic valve appears normal. There is trace to mild pulmonic regurgitation. There is no pulmonic stenosis. Pericardium: There is no significant pericardial effusion. A pericardial fat pad is visualized. Aorta: There is no dilatation of the ascending aorta. The aortic arch is not well visualized. There is no dilation of the aortic root. Pulmonary Artery: The main pulmonary artery is not well visualized. Venous: The inferior vena cava is dilated. There is a greater than 50% respiratory change in the inferior vena cava dimension. Summary: There are no significant changes when compared to the previous study done on 02/06/17 Conclusions The left ventricle appears hyperdynamic. The estimated ejection fraction is greater than 65%. Abnormal left ventricular diastolic function is observed. The right ventricular global systolic function is normal. There is no evidence of aortic stenosis. There is a trace of mitral regurgitation. There is trace tricuspid regurgitation. There is no significant pericardial effusion. Measurements Name Value Normal Range RVIDd (AP) 2D 2.7 cm (0.9 - 2.6) RVDdMajor (2D) 4.3 cm (2.2 - 4.4) RVAW (2D) 0.9 cm (0.2 - 0.5) RAd ISD 4CH 4.6 cm (3.4 - 4.9) RA (A4C)W 4.4 cm (2.9 - 4.6) IVSd (2D) 1.1 cm (0.6 - 1) LVPWd (2D) 1.1 cm (0.6 - 1) LVIDd (2D) 4.2 cm (3.6 - 5.4) LVIDs (2D) 3.17 cm - LV FS (2D) 2 % (25 - 45) Aortic Annulus 1.7 cm (1.4 - 2.6) Ao root diameter (2D) 2.6 cm (2.1 - 3.5) Ascending Ao 2.9 cm (2.1 - 3.4) LA dimension (AP) 2D 3.4 cm (2.3 - 3.8) LAd ISD 4CH 5.4 cm (2.9 - 5.3) LA ISD 4CH W 4.1 cm (2.5 - 4.5) Name Value Normal Range LA ESV SP 4CH (A/L) 60 ml - LA ESV SP 2CH (A/L) 55 ml - LA ESV BP (A/L) 58 ml - LA ESV BP (A/L) index 33 ml/m2 - LA ESV SP 4CH (MOD) 55 ml - LA ESV SP 2CH (MOD) 52 ml - Name Value Normal Range MV E-wave Vmax 0.93 m/sec - MV deceleration time 270.89 msec - MV A-wave Vmax 1.31 m/sec - MV E:A ratio 0.7 ratio - LV septal e' Vmax 0.05 m/sec - LV lateral e' Vmax 0.07 m/sec - LV E:e' septal ratio 18.6 ratio - LV E:e' lateral ratio 13.29 ratio - Name Value Normal Range AV Vmax 1.8 m/sec - AV VTI 33.8 cm - AV peak gradient 13.1 mmHg - AV mean gradient 6.28 mmHg - LVOT Vmax 1.3 m/sec - LVOT VTI 25.7 cm - LVOT peak gradient 7.04 mmHg - LVOT mean gradient 4.27 mmHg - DELANO Vmax 0.9 m/sec - Name Value Normal Range TR Vmax 3.2 m/sec - TR peak gradient 41 mmHg - RAP 15 mmHg - RVSP 56 mmHg - IVC diameter 2.1 cm - Name Value Normal Range PV Vmax 0.87 m/sec - PV peak gradient 3.06 mmHg -
[2017-02-17] MEDS ORDERED: Albuterol/Ipratropium NEB.SOL* Albuterol 2.5 MG/Ipratropium 0.5 MG 3 ML ONE (16:59)
[2017-02-17] MEDS ORDERED: Albuterol/Ipratropium NEB.SOL* Albuterol 2.5 MG/Ipratropium 0.5 MG 3 ML INH SCH (17:00)
--- NOTE | 2017-02-17 17:24 | PN ---
Subjective Date of Service: 02/17/17 Interval History: Feels much better today than she did yesterday. Denies chest pain. Still feels short of breath when she walks to the commode, but at rest feels better. She is able to lie flat today. No palpitations, diaphoresis, nausea, vomiting, diarrhea, constipation. She has a dry cough. Family History: Unchanged from Admission Social History: Unchanged from Admission Past Medical History: Unchanged from Admission Objective Active Medications: Albuterol/Ipratropium (Duoneb (Albuterol 2.5 Mg/Ipratropium 0.5 Mg)) 1 neb INH [id number] AWAKE [facility] Aspirin (Aspirin Ec Low Dose*) 81 mg PO DAILY [facility] Last Admin: 02/17/17 09:36 Dose: 81 mg Atorvastatin Calcium (Lipitor*) 40 mg PO 2100 [facility] Last Admin: 02/16/17 21:07 Dose: 40 mg Clopidogrel Bisulfate (Plavix Tab*) 75 mg PO DAILY [facility] Last Admin: 02/17/17 09:36 Dose: 75 mg Cyanocobalamin (Vitamin B12 Tab*) 1,000 mcg PO DAILY [facility] Last Admin: 02/17/17 09:36 Dose: 1,000 mcg Gabapentin (Neurontin Cap(*)) 200 mg PO BEDTIME [facility] Last Admin: 02/16/17 21:06 Dose: 200 mg Heparin Sodium (Porcine) (Heparin Vial(*)) 0 units IV .PER PROTOCOL [facility] PRN Reason: Protocol Heparin Sodium (Porcine) (Heparin Flush Picc/Ml/Cvc(*)) 1 - 3 ml FLUSH 0600, 1800 [facility] PRN Reason: Protocol Heparin Sodium/Dextrose (Heparin Drip 25,000 Units(*)) 25,000 units in 500 mls @ 0 mls/hr IV .NO INITIAL BOLUS [facility]; As Directed PRN Reason: Protocol Last Admin: 02/16/17 18:55 Dose: 19 mls/hr Methylprednisolone Sodium Succinate (Solu-Medrol 40 Mg) 40 mg IV Q8H [facility] Last Admin: 02/17/17 09:37 Dose: 40 mg Metoprolol Succinate (Toprol Xl Tab*) 50 mg PO BID [facility] Last Admin: 02/17/17 09:36 Dose: 50 mg Montelukast Sodium (Singulair Tab*) 10 mg PO DAILY [facility] Last Admin: 02/17/17 09:37 Dose: 10 mg Nitroglycerin (Nitroglycerin 5 Mg Patch*) 1 patch TRANSDERM Q24H [facility] Stop: 02/17/17 20:59 Last Admin: 02/16/17 21:36 Dose: 1 patch Nitroglycerin (Nitroglycerin 5 Mg Patch*) 1 patch TRANSDERM DAILY [facility] Pharmacy Profile Note (Nitro Patch/Oint Remove*) 1 note PATCH OFF 2100 [facility] Vital Signs 02/16/17 02/16/17 02/16/17 17:30 18:00 18:21 Temperature 97 F Pulse Rate 82 82 Respiratory 20 Rate Blood Pressure 115/57 132/65 115/57 (mmHg) O2 Sat by Pulse 99 100 Oximetry 02/16/17 02/16/17 02/16/17 18:31 19:28 20:00 Temperature 98.5 F Pulse Rate 84 86 Respiratory 24 18 24 Rate Blood Pressure 124/96 (mmHg) O2 Sat by Pulse 96 99 Oximetry 02/16/17 02/16/17 02/16/17 21:06 22:00 22:05 Temperature Pulse Rate Respiratory 28 21 16 Rate Blood Pressure (mmHg) O2 Sat by Pulse Oximetry 02/16/17 02/16/17 02/16/17 22:08 22:10 22:16 Temperature 97.8 F Pulse Rate 103 100 103 Respiratory 26 30 26 Rate Blood Pressure 164/70 164/70 119/73 (mmHg) O2 Sat by Pulse 86 91 92 Oximetry 02/16/17 02/16/17 02/16/17 22:30 22:46 23:00 Temperature Pulse Rate 107 81 81 Respiratory 27 21 26 Rate Blood Pressure 93/55 98/59 (mmHg) O2 Sat by Pulse 92 95 94 Oximetry 02/16/17 02/16/17 02/16/17 23:01 23:04 23:06 Temperature Pulse Rate 98 92 Respiratory 21 28 22 Rate Blood Pressure 124/74 (mmHg) O2 Sat by Pulse 95 94 Oximetry 02/16/17 02/16/17 02/16/17 23:15 23:22 23:28 Temperature 99.8 F Pulse Rate 89 91 Respiratory 32 35 Rate Blood Pressure 110/96 (mmHg) O2 Sat by Pulse 89 99 Oximetry 02/16/17 02/16/17 02/17/17 23:32 23:45 00:00 Temperature Pulse Rate 90 112 88 Respiratory 37 23 20 Rate Blood Pressure 120/52 143/71 136/47 (mmHg) O2 Sat by Pulse 100 95 93 Oximetry 02/17/17 02/17/17 02/17/17 00:16 00:30 00:45 Temperature Pulse Rate Respiratory 22 22 22 Rate Blood Pressure 105/50 103/43 98/42 (mmHg) O2 Sat by Pulse 93 91 91 Oximetry 02/17/17 02/17/17 02/17/17 01:00 01:01 01:17 Temperature Pulse Rate 119 Respiratory 22 22 24 Rate Blood Pressure 114/44 155/77 (mmHg) O2 Sat by Pulse 91 90 92 Oximetry 02/17/17 02/17/17 02/17/17 01:26 01:31 01:45 Temperature Pulse Rate 99 99 Respiratory 23 29 Rate Blood Pressure 134/53 105/50 (mmHg) O2 Sat by Pulse 91 91 89 Oximetry 02/17/17 02/17/17 02/17/17 02:00 02:33 02:44 Temperature Pulse Rate 94 114 Respiratory 28 30 25 Rate Blood Pressure 154/103 (mmHg) O2 Sat by Pulse 91 89 Oximetry 02/17/17 02/17/17 02/17/17 03:00 03:01 04:00 Temperature Pulse Rate 106 93 Respiratory 23 20 29 Rate Blood Pressure 125/50 (mmHg) O2 Sat by Pulse 94 95 87 Oximetry 02/17/17 02/17/17 02/17/17 04:01 04:09 04:48 Temperature Pulse Rate 97 Respiratory 32 26 26 Rate Blood Pressure 131/63 (mmHg) O2 Sat by Pulse 91 97 Oximetry 02/17/17 02/17/17 02/17/17 05:00 05:01 05:28 Temperature 98.8 F Pulse Rate Respiratory 21 20 Rate Blood Pressure 130/56 (mmHg) O2 Sat by Pulse 92 90 Oximetry 02/17/17 02/17/17 02/17/17 06:00 06:20 07:00 Temperature Pulse Rate 107 Respiratory 38 23 22 Rate Blood Pressure 106/55 119/55 (mmHg) O2 Sat by Pulse 90 89 90 Oximetry 02/17/17 02/17/17 02/17/17 07:57 08:00 08:01 Temperature Pulse Rate 119 Respiratory 25 22 Rate Blood Pressure 123/63 (mmHg) O2 Sat by Pulse 89 92 Oximetry 02/17/17 02/17/17 02/17/17 08:30 09:00 09:01 Temperature 99.1 F Pulse Rate 129 Respiratory 25 23 Rate Blood Pressure 93/75 (mmHg) O2 Sat by Pulse 91 Oximetry 02/17/17 02/17/17 02/17/17 09:37 09:41 10:00 Temperature 99.1 F Pulse Rate 122 125 113 Respiratory 20 21 22 Rate Blood Pressure 93/56 101/60 121/63 (mmHg) O2 Sat by Pulse 88 89 88 Oximetry 02/17/17 02/17/17 02/17/17 11:00 11:01 12:00 Temperature 98.5 F Pulse Rate 144 Respiratory 25 25 22 Rate Blood Pressure 108/59 (mmHg) O2 Sat by Pulse 81 Oximetry 02/17/17 02/17/17 02/17/17 12:18 13:00 14:00 Temperature Pulse Rate 102 91 Respiratory 20 23 22 Rate Blood Pressure 127/65 155/68 (mmHg) O2 Sat by Pulse 98 99 Oximetry 02/17/17 02/17/17 02/17/17 14:01 15:00 16:00 Temperature Pulse Rate 107 98 93 Respiratory 25 22 21 Rate Blood Pressure 93/84 122/57 114/50 (mmHg) O2 Sat by Pulse 97 98 97 Oximetry 02/17/17 02/17/17 02/17/17 16:10 16:53 17:03 Temperature 98.7 F Pulse Rate 97 Respiratory 23 20 Rate Blood Pressure (mmHg) O2 Sat by Pulse 100 Oximetry Oxygen Devices in Use Now: None Appearance: Alert, tachypneic, no distress Eyes: No Scleral Icterus, PERRLA Ears/Nose/Mouth/Throat: NL Teeth, Lips, Gums, Clear Oropharnyx Neck: NL Appearance and Movements; NL JVP, Trachea Midline Respiratory: Symmetrical Chest Expansion and Respiratory Effort, - - very diminished breath sounds, few scattered rhonchi Cardiovascular: - - tachycardic, no murmurs Abdominal: NL Sounds; No Tenderness; No Distention, No Hepatosplenomegaly Lymphatic: No Cervical Adenopathy Extremities: No Edema Skin: - - hematoma right upper extremity Neurological: Alert and Oriented x 3 Result Diagrams: 02/17/17 06:10 02/17/17 08:39 Additional Lab and Data: Lab Results 02/16/17 02/16/17 02/16/17 Range/Units 14:35 14:35 14:35 WBC (3.5-10.8) 10^3/ul RBC (4.0-5.4) 10^6/ul Hgb (12.0-16.0) g/dl Hct (35-47) % MCV (80-97) fL MCH (27-31) pg MCHC (31-36) g/dl RDW (10.5-15) % Plt Count (150-450) 10^3/ul MPV (7.4-10.4) um3 Neut % (Auto) (38-83) % Lymph % (Auto) (25-47) % [place] % (Auto) (1-9) % Eos % (Auto) (0-6) % Baso % (Auto) (0-2) % Absolute Neuts (auto) (1.5-7.7) 10^3/ul Absolute Lymphs (auto) (1.0-4.8) 10^3/ul Absolute Monos (auto) (0-0.8) 10^3/ul Absolute Eos (auto) (0-0.6) 10^3/ul Absolute Basos (auto) (0-0.2) 10^3/ul Absolute Nucleated RBC 10^3/ul Nucleated RBC % INR (Anticoag Therapy) 0.86 L (0.89-1.11) APTT 24.7 L (26.0-36.3) seconds D-Dimer, Quantitative 438 H (Less Than 230) ng/mL Sodium 144 (133-145) mmol/L Potassium 4.4 (3.5-5.0) mmol/L Chloride 105 (101-111) mmol/L Carbon Dioxide 33 H (22-32) mmol/L Anion Gap 6 (2-11) mmol/L BUN 38 H (6-24) mg/dL Creatinine 1.61 H (0.51-0.95) mg/dL Est GFR ( Amer) 40.7 (>60) Est GFR (Non-Af Amer) 31.6 (>60) BUN/Creatinine Ratio 23.6 H (8-20) Glucose 108 H (70-100) mg/dL Lactic Acid (0.5-2.0) mmol/L Calcium 9.2 (8.6-10.3) mg/dL Magnesium 2.3 (1.9-2.7) mg/dL Total Bilirubin 0.50 (0.2-1.0) mg/dL AST 87 H (13-39) U/L ALT 167 H (7-52) U/L Alkaline Phosphatase 104 (34-104) U/L Total Creatine Kinase 760 H (10-223) U/L CK-MB (CK-2) 67.8 H (0.6-6.3) ng/mL Troponin I 6.65 H* (<0.04) ng/mL C-Reactive Protein 2.94 (< 5.00) mg/L B-Natriuretic Peptide 730 H ( - 100) pg/mL Total Protein 6.2 L (6.4-8.9) g/dL Albumin 3.6 (3.2-5.2) g/dL Globulin 2.6 (2-4) g/dL Albumin/Globulin Ratio 1.4 (1-3) Lipase 17 (11.0-82.0) U/L TSH 1.07 (0.34-5.60) mcIU/mL Urine Color Urine Appearance Urine pH (5-9) Ur Specific [place] (1.010-1.030) Urine Protein (Negative) Urine Ketones (Negative) Urine Blood (Negative) Urine Nitrate (Negative) Urine Bilirubin (Negative) Urine Urobilinogen (Negative) Ur Leukocyte Esterase (Negative) Urine WBC (Auto) (Absent) Urine RBC (Auto) (Absent) Ur Squamous Epith Cells (Absent) Urine Bacteria (Absent) Hyaline Casts (Absent) Urine Yeast (Absent) Urine Glucose (Negative) 02/16/17 02/16/17 02/16/17 Range/Units 14:35 14:35 15:45 WBC 21.4 H (3.5-10.8) 10^3/ul RBC 3.18 L (4.0-5.4) 10^6/ul Hgb 9.2 L (12.0-16.0) g/dl Hct 30 L (35-47) % MCV 94 (80-97) fL MCH 29 (27-31) pg MCHC 31 (31-36) g/dl RDW 17 H (10.5-15) % Plt Count 219 (150-450) 10^3/ul MPV 10 (7.4-10.4) um3 Neut % (Auto) 87.0 H (38-83) % Lymph % (Auto) 6.8 L (25-47) % [place] % (Auto) 5.7 (1-9) % Eos % (Auto) 0.1 (0-6) % Baso % (Auto) 0.4 (0-2) % Absolute Neuts (auto) 18.6 H (1.5-7.7) 10^3/ul Absolute Lymphs (auto) 1.5 (1.0-4.8) 10^3/ul Absolute Monos (auto) 1.2 H (0-0.8) 10^3/ul Absolute Eos (auto) 0 (0-0.6) 10^3/ul Absolute Basos (auto) 0.1 (0-0.2) 10^3/ul Absolute Nucleated RBC 0.01 10^3/ul Nucleated RBC % 0 INR (Anticoag Therapy) (0.89-1.11) APTT (26.0-36.3) seconds D-Dimer, Quantitative (Less Than 230) ng/mL Sodium (133-145) mmol/L Potassium (3.5-5.0) mmol/L Chloride (101-111) mmol/L Carbon Dioxide (22-32) mmol/L Anion Gap (2-11) mmol/L BUN (6-24) mg/dL Creatinine (0.51-0.95) mg/dL Est GFR ( Amer) (>60) Est GFR (Non-Af Amer) (>60) BUN/Creatinine Ratio (8-20) Glucose (70-100) mg/dL Lactic Acid 1.2 (0.5-2.0) mmol/L Calcium (8.6-10.3) mg/dL Magnesium (1.9-2.7) mg/dL Total Bilirubin (0.2-1.0) mg/dL AST (13-39) U/L ALT (7-52) U/L Alkaline Phosphatase (34-104) U/L Total Creatine Kinase (10-223) U/L CK-MB (CK-2) (0.6-6.3) ng/mL Troponin I (<0.04) ng/mL C-Reactive Protein (< 5.00) mg/L B-Natriuretic Peptide ( - 100) pg/mL Total Protein (6.4-8.9) g/dL Albumin (3.2-5.2) g/dL Globulin (2-4) g/dL Albumin/Globulin Ratio (1-3) Lipase (11.0-82.0) U/L TSH (0.34-5.60) mcIU/mL Urine Color Yellow Urine Appearance Clear Urine pH 5.0 (5-9) Ur Specific [place] 1.014 (1.010-1.030) Urine Protein Negative (Negative) Urine Ketones Negative (Negative) Urine Blood 1+ H (Negative) Urine Nitrate Negative (Negative) Urine Bilirubin Negative (Negative) Urine Urobilinogen Negative (Negative) Ur Leukocyte Esterase Negative (Negative) Urine WBC (Auto) Trace(0-5/hpf) (Absent) Urine RBC (Auto) Trace(0-2/hpf) (Absent) Ur Squamous Epith Cells Present H (Absent) Urine Bacteria Absent (Absent) Hyaline Casts Present H (Absent) Urine Yeast Present H (Absent) Urine Glucose Negative (Negative) Microbiology and Other Data: Microbiology 02/16/17 22:41 Nasal Screen MRSA (PCR)([facility]AS[facility]) - Final Nasal Mrsa Negative Assess/Plan/Problems-Billing Assessment: 1. Acute Hypoxic Respiratory Failure Seems mostly caused by a COPD exacerbation given profound bronchospasm on exam. She may have had some mild volume overload that contributed to the exacerbation, but she seems more euvolemic now. Continue standing nebs round the clock, solumedrol, and will add azithromycin today for inflammation--she may benefit from daily azithromycin given her frequent exacerbations. 2. NSTEMI Continue heparin drip, asa, plavix, statin, bb. Would benefit from better HR control; will increase bb Plan for LHC when respiratory status is improved 3. Acute on chronic diastolic heart failure Volume status markedly improved after two doses of IV lasix; will hold off for now. 4. CKD Hold off on further diuresis with the anticipation that she will receive a dye load with a LHC. 5. DVT ppx--therapeutic heparin 6. She would accept intubation/resuscitation as needed.
[2017-02-17] MEDS: Atorvastatin* 40 MG TAB PO SCH (21:15)
[2017-02-17] MEDS: Gabapentin CAP(*) 100 MG PO SCH (21:15)
[2017-02-17] MEDS: Nitro Patch/OINT Remove PATCH OFF SCH (21:16)
[2017-02-17] MEDS: Heparin DRIP 25,000 UNITS(*) 25,000 UNITS/500 ML BAG IV SCH (22:47)
[2017-02-18] MEDS: Albuterol/Ipratropium NEB.SOL* Albuterol 2.5 MG/Ipratropium 0.5 MG 3 ML INH SCH ×6 (00:14→19:46)
[2017-02-18] MEDS: methylPREDNISolone SOD 40 MG* 1 ML VIAL IV SCH ×3 (01:45→17:25)
[2017-02-18 06:36] LABS: Hematocrit 24 % (35-47); Hemoglobin 7.5 g/dl (12.0-16.0); Mean Corpuscular HGB Conc 32 g/dl (31-36); Mean Corpuscular Hemoglobin 29 pg (27-31); Mean Corpuscular Volume 92 fL (80-97); Mean Platelet Volume 10 um3 (7.4-10.4); Red Cell Distribution Width 17 % (10.5-15); White Blood Count 21.9 10^3/ul (3.5-10.8)
[2017-02-18 06:48] LABS: Add Diff/Slide Review? Slide Review Added; Comments Flag Yes
[2017-02-18 06:54] LABS: ALT 79 U/L (7-52); AST 25 U/L (13-39); Albumin 3.1 g/dL (3.2-5.2); Alkaline Phosphatase 66 U/L (34-104); Anion Gap 6 mmol/L (2-11); BUN/Creatinine Ratio 25.5 (8-20); Blood Urea Nitrogen 50 mg/dL (6-24); CO2 Carbon Dioxide 33 mmol/L (22-32); Chloride 102 mmol/L (101-111); EGFR African American 32.4 (>60); EGFR Non-African American 25.2 (>60); Globulin 2.2 g/dL (2-4); Glucose 155 mg/dL (70-100); Magnesium 2.2 mg/dL (1.9-2.7); Potassium 4.1 mmol/L (3.5-5.0); Sodium 141 mmol/L (133-145); Total Protein 5.3 g/dL (6.4-8.9)
[2017-02-18 06:56] LABS: Troponin I 3.88 ng/mL (<0.04)
[2017-02-18] MEDS: Cyanocobalamin TAB* 500 MCG PO SCH (09:47)
[2017-02-18] MEDS: Clopidogrel TAB* 75 MG PO SCH (09:47)
[2017-02-18] MEDS: Aspirin EC Low Dose* 81 MG TAB.EC PO SCH (09:47)
[2017-02-18] MEDS: Montelukast Sodium TAB* 10 MG PO SCH (09:48)
[2017-02-18] MEDS: Metoprolol Succinate XL TAB* 50 MG PO SCH ×2 (09:48→21:01)
[2017-02-18] MEDS: Nitroglycerin 0.2 MG/HR PATCH* (5 MG) TRANSDERM SCH (09:56)
[2017-02-18 10:35] LABS: Iron 39 ug/dL (50-212)
--- NOTE | 2017-02-18 10:40 | PN ---
Subjective Date of Service: 02/18/17 Interval History: Feeling better today. She is lying nearly flat in bed, breathing comfortably, and heart rate is currently in the 60s. She says her shortness of breath is improving, she denies cough, shortness of breath, chest pain, fevers, nausea, vomiting, constipation, or diarrhea. Family History: Unchanged from Admission Social History: Unchanged from Admission Past Medical History: Unchanged from Admission Objective Active Medications: Albuterol/Ipratropium (Duoneb (Albuterol 2.5 Mg/Ipratropium 0.5 Mg)) 1 neb INH [id number] AWAKE [facility] Last Admin: 02/18/17 07:51 Dose: 1 neb Aspirin (Aspirin Ec Low Dose*) 81 mg PO DAILY [facility] Last Admin: 02/18/17 09:47 Dose: 81 mg Atorvastatin Calcium (Lipitor*) 40 mg PO 2100 [facility] Last Admin: 02/17/17 21:15 Dose: 40 mg Clopidogrel Bisulfate (Plavix Tab*) 75 mg PO DAILY [facility] Last Admin: 02/18/17 09:47 Dose: 75 mg Cyanocobalamin (Vitamin B12 Tab*) 1,000 mcg PO DAILY [facility] Last Admin: 02/18/17 09:47 Dose: 1,000 mcg Gabapentin (Neurontin Cap(*)) 200 mg PO BEDTIME [facility] Last Admin: 02/17/17 21:15 Dose: 200 mg Heparin Sodium (Porcine) (Heparin Vial(*)) 0 units IV .PER PROTOCOL [facility] PRN Reason: Protocol Heparin Sodium (Porcine) (Heparin Flush Picc/Ml/Cvc(*)) 1 - 3 ml FLUSH 0600, 1800 [facility] PRN Reason: Protocol Last Admin: 02/18/17 06:14 Dose: Not Given Heparin Sodium/Dextrose (Heparin Drip 25,000 Units(*)) 25,000 units in 500 mls @ 0 mls/hr IV .NO INITIAL BOLUS [facility]; As Directed PRN Reason: Protocol Last Admin: 02/17/17 22:47 Dose: 7.1 mls/hr Methylprednisolone Sodium Succinate (Solu-Medrol 40 Mg) 40 mg IV Q8H [facility] Last Admin: 02/18/17 09:47 Dose: 40 mg Metoprolol Succinate (Toprol Xl Tab*) 50 mg PO BID [facility] Last Admin: 09/19/17 09:48 Dose: 50 mg Montelukast Sodium (Singulair Tab*) 10 mg PO DAILY [facility] Last Admin: 02/18/17 09:48 Dose: 10 mg Nitroglycerin (Nitroglycerin 5 Mg Patch*) 1 patch TRANSDERM DAILY [facility] Last Admin: 02/18/17 09:56 Dose: 1 patch Pharmacy Profile Note (Nitro Patch/Oint Remove*) 1 note PATCH OFF 2100 [facility] Last Admin: 02/17/17 21:16 Dose: Not Given Vital Signs 02/17/17 02/17/17 02/17/17 11:00 11:01 12:00 Temperature 98.5 F Pulse Rate 144 Respiratory 25 25 22 Rate Blood Pressure 108/59 (mmHg) O2 Sat by Pulse 81 Oximetry 02/17/17 02/17/17 02/17/17 12:18 13:00 14:00 Temperature Pulse Rate 102 91 Respiratory 20 23 22 Rate Blood Pressure 127/65 155/68 (mmHg) O2 Sat by Pulse 98 99 Oximetry 02/17/17 02/17/17 02/17/17 14:01 15:00 16:00 Temperature Pulse Rate 107 98 93 Respiratory 25 22 21 Rate Blood Pressure 93/84 122/57 114/50 (mmHg) O2 Sat by Pulse 97 98 97 Oximetry 02/17/17 02/17/17 02/17/17 16:10 16:53 17:00 Temperature 98.7 F Pulse Rate 93 Respiratory 23 25 Rate Blood Pressure 110/55 (mmHg) O2 Sat by Pulse 92 Oximetry 02/17/17 02/17/17 02/17/17 17:03 17:55 18:21 Temperature Pulse Rate 97 96 Respiratory 20 22 22 Rate Blood Pressure 104/64 (mmHg) O2 Sat by Pulse 100 90 Oximetry 02/17/17 02/17/17 02/17/17 19:00 19:04 20:00 Temperature 99.5 F Pulse Rate 86 85 77 Respiratory 19 17 16 Rate Blood Pressure 117/46 112/47 (mmHg) O2 Sat by Pulse 83 86 100 Oximetry 02/17/17 02/17/17 02/17/17 20:18 21:00 22:00 Temperature Pulse Rate 95 78 74 Respiratory 20 19 18 Rate Blood Pressure 123/55 96/51 (mmHg) O2 Sat by Pulse 99 95 99 Oximetry 02/17/17 02/18/17 02/18/17 23:00 00:00 00:16 Temperature 97.7 F Pulse Rate 72 72 77 Respiratory 15 21 28 Rate Blood Pressure 112/58 123/62 (mmHg) O2 Sat by Pulse 99 100 100 Oximetry 02/18/17 02/18/17 02/18/17 01:00 02:00 03:00 Temperature Pulse Rate 68 63 63 Respiratory 14 15 15 Rate Blood Pressure 116/46 112/46 109/45 (mmHg) O2 Sat by Pulse 100 100 100 Oximetry 02/18/17 02/18/17 02/18/17 03:51 03:55 04:00 Temperature 98.1 F Pulse Rate 75 74 72 Respiratory 26 23 20 Rate Blood Pressure 109/45 (mmHg) O2 Sat by Pulse 100 100 99 Oximetry 02/18/17 02/18/17 02/18/17 05:00 06:00 07:00 Temperature Pulse Rate 62 73 60 Respiratory 15 20 16 Rate Blood Pressure 121/54 110/49 124/57 (mmHg) O2 Sat by Pulse 99 95 99 Oximetry 02/18/17 02/18/17 02/18/17 07:38 07:51 07:52 Temperature 98.9 F Pulse Rate 66 Respiratory 15 Rate Blood Pressure (mmHg) O2 Sat by Pulse 97 100 Oximetry 02/18/17 02/18/17 02/18/17 08:00 09:00 09:59 Temperature Pulse Rate 60 64 Respiratory 17 24 26 Rate Blood Pressure 124/49 139/52 (mmHg) O2 Sat by Pulse 99 97 Oximetry 02/18/17 10:00 Temperature Pulse Rate 73 Respiratory 25 Rate Blood Pressure 136/57 (mmHg) O2 Sat by Pulse 96 Oximetry Oxygen Devices in Use Now: Nasal Cannula Appearance: alert, comfortable, no distress Eyes: No Scleral Icterus, PERRLA Ears/Nose/Mouth/Throat: - - edentulous, dry mucosa Neck: NL Appearance and Movements; NL JVP, Trachea Midline Respiratory: - - increased air movement, scattered expiratory wheezes, prolonged expiratory phase Cardiovascular: NL Sounds; No Murmurs; No JVD, RRR Abdominal: NL Sounds; No Tenderness; No Distention, No Hepatosplenomegaly Lymphatic: No Cervical Adenopathy Extremities: No Edema Skin: - - hematoma RUE Neurological: Alert and Oriented x 3 Result Diagrams: 02/18/17 05:50 02/18/17 05:50 Additional Lab and Data: Lab Results 02/16/17 02/16/17 02/16/17 Range/Units 14:35 14:35 14:35 WBC (3.5-10.8) 10^3/ul RBC (4.0-5.4) 10^6/ul Hgb (12.0-16.0) g/dl Hct (35-47) % MCV (80-97) fL MCH (27-31) pg MCHC (31-36) g/dl RDW (10.5-15) % Plt Count (150-450) 10^3/ul MPV (7.4-10.4) um3 Neut % (Auto) (38-83) % Lymph % (Auto) (25-47) % [place] % (Auto) (1-9) % Eos % (Auto) (0-6) % Baso % (Auto) (0-2) % Absolute Neuts (auto) (1.5-7.7) 10^3/ul Absolute Lymphs (auto) (1.0-4.8) 10^3/ul Absolute Monos (auto) (0-0.8) 10^3/ul Absolute Eos (auto) (0-0.6) 10^3/ul Absolute Basos (auto) (0-0.2) 10^3/ul Absolute Nucleated RBC 10^3/ul Nucleated RBC % INR (Anticoag Therapy) 0.86 L (0.89-1.11) APTT 24.7 L (26.0-36.3) seconds D-Dimer, Quantitative 438 H (Less Than 230) ng/mL Sodium 144 (133-145) mmol/L Potassium 4.4 (3.5-5.0) mmol/L Chloride 105 (101-111) mmol/L Carbon Dioxide 33 H (22-32) mmol/L Anion Gap 6 (2-11) mmol/L BUN 38 H (6-24) mg/dL Creatinine 1.61 H (0.51-0.95) mg/dL Est GFR ( Amer) 40.7 (>60) Est GFR (Non-Af Amer) 31.6 (>60) BUN/Creatinine Ratio 23.6 H (8-20) Glucose 108 H (70-100) mg/dL Lactic Acid (0.5-2.0) mmol/L Calcium 9.2 (8.6-10.3) mg/dL Magnesium 2.3 (1.9-2.7) mg/dL Total Bilirubin 0.50 (0.2-1.0) mg/dL AST 87 H (13-39) U/L ALT 167 H (7-52) U/L Alkaline Phosphatase 104 (34-104) U/L Total Creatine Kinase 760 H (10-223) U/L CK-MB (CK-2) 67.8 H (0.6-6.3) ng/mL Troponin I 6.65 H* (<0.04) ng/mL C-Reactive Protein 2.94 (< 5.00) mg/L B-Natriuretic Peptide 730 H ( - 100) pg/mL Total Protein 6.2 L (6.4-8.9) g/dL Albumin 3.6 (3.2-5.2) g/dL Globulin 2.6 (2-4) g/dL Albumin/Globulin Ratio 1.4 (1-3) Lipase 17 (11.0-82.0) U/L TSH 1.07 (0.34-5.60) mcIU/mL Urine Color Urine Appearance Urine pH (5-9) Ur Specific [place] (1.010-1.030) Urine Protein (Negative) Urine Ketones (Negative) Urine Blood (Negative) Urine Nitrate (Negative) Urine Bilirubin (Negative) Urine Urobilinogen (Negative) Ur Leukocyte Esterase (Negative) Urine WBC (Auto) (Absent) Urine RBC (Auto) (Absent) Ur Squamous Epith Cells (Absent) Urine Bacteria (Absent) Hyaline Casts (Absent) Urine Yeast (Absent) Urine Glucose (Negative) 02/16/17 02/16/17 02/16/17 Range/Units 14:35 14:35 15:45 WBC 21.4 H (3.5-10.8) 10^3/ul RBC 3.18 L (4.0-5.4) 10^6/ul Hgb 9.2 L (12.0-16.0) g/dl Hct 30 L (35-47) % MCV 94 (80-97) fL MCH 29 (27-31) pg MCHC 31 (31-36) g/dl RDW 17 H (10.5-15) % Plt Count 219 (150-450) 10^3/ul MPV 10 (7.4-10.4) um3 Neut % (Auto) 87.0 H (38-83) % Lymph % (Auto) 6.8 L (25-47) % [place] % (Auto) 5.7 (1-9) % Eos % (Auto) 0.1 (0-6) % Baso % (Auto) 0.4 (0-2) % Absolute Neuts (auto) 18.6 H (1.5-7.7) 10^3/ul Absolute Lymphs (auto) 1.5 (1.0-4.8) 10^3/ul Absolute Monos (auto) 1.2 H (0-0.8) 10^3/ul Absolute Eos (auto) 0 (0-0.6) 10^3/ul Absolute Basos (auto) 0.1 (0-0.2) 10^3/ul Absolute Nucleated RBC 0.01 10^3/ul Nucleated RBC % 0 INR (Anticoag Therapy) (0.89-1.11) APTT (26.0-36.3) seconds D-Dimer, Quantitative (Less Than 230) ng/mL Sodium (133-145) mmol/L Potassium (3.5-5.0) mmol/L Chloride (101-111) mmol/L Carbon Dioxide (22-32) mmol/L Anion Gap (2-11) mmol/L BUN (6-24) mg/dL Creatinine (0.51-0.95) mg/dL Est GFR ( Amer) (>60) Est GFR (Non-Af Amer) (>60) BUN/Creatinine Ratio (8-20) Glucose (70-100) mg/dL Lactic Acid 1.2 (0.5-2.0) mmol/L Calcium (8.6-10.3) mg/dL Magnesium (1.9-2.7) mg/dL Total Bilirubin (0.2-1.0) mg/dL AST (13-39) U/L ALT (7-52) U/L Alkaline Phosphatase (34-104) U/L Total Creatine Kinase (10-223) U/L CK-MB (CK-2) (0.6-6.3) ng/mL Troponin I (<0.04) ng/mL C-Reactive Protein (< 5.00) mg/L B-Natriuretic Peptide ( - 100) pg/mL Total Protein (6.4-8.9) g/dL Albumin (3.2-5.2) g/dL Globulin (2-4) g/dL Albumin/Globulin Ratio (1-3) Lipase (11.0-82.0) U/L TSH (0.34-5.60) mcIU/mL Urine Color Yellow Urine Appearance Clear Urine pH 5.0 (5-9) Ur Specific [place] 1.014 (1.010-1.030) Urine Protein Negative (Negative) Urine Ketones Negative (Negative) Urine Blood 1+ H (Negative) Urine Nitrate Negative (Negative) Urine Bilirubin Negative (Negative) Urine Urobilinogen Negative (Negative) Ur Leukocyte Esterase Negative (Negative) Urine WBC (Auto) Trace(0-5/hpf) (Absent) Urine RBC (Auto) Trace(0-2/hpf) (Absent) Ur Squamous Epith Cells Present H (Absent) Urine Bacteria Absent (Absent) Hyaline Casts Present H (Absent) Urine Yeast Present H (Absent) Urine Glucose Negative (Negative) Microbiology and Other Data: Microbiology 02/16/17 22:41 Nasal Screen MRSA (PCR)(NATASHA) - Final Nasal Mrsa Negative Assess/Plan/Problems-Billing Assessment: 1. Acute Hypoxic Respiratory Failure Seems mostly caused by a COPD exacerbation given profound bronchospasm on exam. She may have had some mild volume overload that contributed to the exacerbation, but she seems more euvolemic now, as evidenced by a contraction alkalosis this morning. Continue standing nebs round the clock, solumedrol, and will add azithromycin today for inflammation--she may benefit from daily azithromycin given her frequent exacerbations. 2. NSTEMI Continue heparin drip, asa, plavix, statin, bb. Much better HR control this morning as respiratory status improves. Plan for LHC when respiratory status is improved; cardiology following. 3. Acute on chronic diastolic heart failure Contraction alkalosis today after diuresis; no more lasix today 4. CKD Hold off on further diuresis with the anticipation that she will receive a dye load with a LHC. 5. DVT ppx--therapeutic heparin 6. She would accept intubation/resuscitation as needed.
[2017-02-18 11:15] LABS: Ferritin 44.8 ng/mL (11-307)
[2017-02-18] MEDS: Atorvastatin* 40 MG TAB PO SCH (21:01)
[2017-02-18] MEDS: Gabapentin CAP(*) 100 MG PO SCH (21:01)
[2017-02-18] MEDS: Nitro Patch/OINT Remove PATCH OFF SCH (21:06)
[2017-02-19] MEDS: Albuterol/Ipratropium NEB.SOL* Albuterol 2.5 MG/Ipratropium 0.5 MG 3 ML INH SCH ×6 (00:06→18:11)
[2017-02-19] MEDS: methylPREDNISolone SOD 40 MG* 1 ML VIAL IV SCH ×3 (03:03→21:24)
[2017-02-19 07:11] LABS: Hematocrit 26 % (35-47); Hemoglobin 8.3 g/dl (12.0-16.0); Mean Corpuscular HGB Conc 32 g/dl (31-36); Mean Corpuscular Hemoglobin 28 pg (27-31); Mean Corpuscular Volume 89 fL (80-97); Mean Platelet Volume 10 um3 (7.4-10.4); Red Blood Count 2.96 10^6/ul (4.0-5.4); Red Cell Distribution Width 18 % (10.5-15)
[2017-02-19 07:23] LABS: BUN/Creatinine Ratio 31.8 (8-20); Calcium 8.8 mg/dL (8.6-10.3); EGFR African American 38.2 (>60); EGFR Non-African American 29.7 (>60); Magnesium 2.3 mg/dL (1.9-2.7)
[2017-02-19 07:29] LABS: Troponin I 2.06 ng/mL (<0.04)
[2017-02-19] MEDS: Nitroglycerin 0.2 MG/HR PATCH* (5 MG) TRANSDERM SCH (07:59)
[2017-02-19] MEDS: Cyanocobalamin TAB* 500 MCG PO SCH (07:59)
[2017-02-19] MEDS: Clopidogrel TAB* 75 MG PO SCH (07:59)
[2017-02-19] MEDS: Montelukast Sodium TAB* 10 MG PO SCH (07:59)
[2017-02-19] MEDS: Metoprolol Succinate XL TAB* 50 MG PO SCH ×2 (07:59→21:23)
[2017-02-19] MEDS: Aspirin EC Low Dose* 81 MG TAB.EC PO SCH (07:59)
--- NOTE | 2017-02-19 11:26 | PN ---
Subjective Date of Service: 02/19/17 Interval History: Feels much better today. She has been walking from bed to the commode and to the chair and denies dyspnea when she does so. Denies shortness of breath, cough, fevers. She has not moved her bowels in a few days but is drinking miralax now and denies nausea or abdominal pain. Family History: Unchanged from Admission Social History: Unchanged from Admission Past Medical History: Unchanged from Admission Objective Active Medications: Albuterol/Ipratropium (Duoneb (Albuterol 2.5 Mg/Ipratropium 0.5 Mg)) 1 neb INH [id number] AWAKE [facility] Last Admin: 02/19/17 08:02 Dose: 1 neb Aspirin (Aspirin Ec Low Dose*) 81 mg PO DAILY [facility] Last Admin: 02/19/17 07:59 Dose: 81 mg Atorvastatin Calcium (Lipitor*) 40 mg PO 2100 [facility] Last Admin: 02/18/17 21:01 Dose: 40 mg Clopidogrel Bisulfate (Plavix Tab*) 75 mg PO DAILY [facility] Last Admin: 02/19/17 07:59 Dose: 75 mg Cyanocobalamin (Vitamin B12 Tab*) 1,000 mcg PO DAILY [facility] Last Admin: 02/19/17 07:59 Dose: 1,000 mcg Gabapentin (Neurontin Cap(*)) 200 mg PO BEDTIME [facility] Last Admin: 02/18/17 21:01 Dose: 200 mg Heparin Sodium (Porcine) (Heparin Flush Picc/Ml/Cvc(*)) 1 - 3 ml FLUSH 0600, 1800 [facility] PRN Reason: Protocol Last Admin: 02/19/17 06:01 Dose: 1 ml Methylprednisolone Sodium Succinate (Solu-Medrol 40 Mg) 40 mg IV Q8H [facility] Last Admin: 02/19/17 10:05 Dose: 40 mg Metoprolol Succinate (Toprol Xl Tab*) 50 mg PO BID [facility] Last Admin: 02/19/17 07:59 Dose: 50 mg Montelukast Sodium (Singulair Tab*) 10 mg PO DAILY [facility] Last Admin: 02/19/17 07:59 Dose: 10 mg Nitroglycerin (Nitroglycerin 5 Mg Patch*) 1 patch TRANSDERM DAILY [facility] Last Admin: 02/19/17 07:59 Dose: 1 patch Pharmacy Profile Note (Nitro Patch/Oint Remove*) 1 note PATCH OFF 2099 [facility] Last Admin: 02/18/17 21:06 Dose: 1 note Vital Signs 02/18/17 02/18/17 02/18/17 11:32 11:45 12:00 Temperature 99.3 F 99.1 F Pulse Rate 67 75 Respiratory 23 26 Rate Blood Pressure 139/58 (mmHg) O2 Sat by Pulse 100 97 Oximetry 02/18/17 02/18/17 02/18/17 12:38 12:54 12:58 Temperature 98.9 F Pulse Rate 63 64 73 Respiratory 22 19 25 Rate Blood Pressure 127/48 122/50 104/74 (mmHg) O2 Sat by Pulse 88 95 96 Oximetry 02/18/17 02/18/17 02/18/17 13:00 13:17 14:00 Temperature 99.8 F 98.5 F Pulse Rate 63 61 75 Respiratory 31 16 28 Rate Blood Pressure 124/60 121/67 120/66 (mmHg) O2 Sat by Pulse 95 99 96 Oximetry 02/18/17 02/18/17 02/18/17 14:42 15:57 16:00 Temperature 98.7 F Pulse Rate 71 62 Respiratory 20 20 Rate Blood Pressure 140/51 (mmHg) O2 Sat by Pulse 98 100 Oximetry 02/18/17 02/18/17 02/18/17 17:00 19:14 19:45 Temperature 97.9 F Pulse Rate 69 81 Respiratory 20 24 20 Rate Blood Pressure 117/42 (mmHg) O2 Sat by Pulse 97 98 Oximetry 02/18/17 02/18/17 02/18/17 20:00 20:59 21:01 Temperature 98.1 F Pulse Rate 71 Respiratory 20 20 20 Rate Blood Pressure 121/44 (mmHg) O2 Sat by Pulse 98 Oximetry 02/18/17 02/19/17 02/19/17 23:01 00:06 00:35 Temperature 97.4 F Pulse Rate 72 68 Respiratory 18 24 20 Rate Blood Pressure 121/50 (mmHg) O2 Sat by Pulse 99 98 Oximetry 02/19/17 02/19/17 02/19/17 03:09 03:38 04:00 Temperature 98.0 F Pulse Rate 72 68 Respiratory 20 24 20 Rate Blood Pressure 115/48 (mmHg) O2 Sat by Pulse 99 99 Oximetry 02/19/17 02/19/17 02/19/17 07:25 08:00 08:04 Temperature 97.6 F Pulse Rate 65 64 Respiratory 22 22 20 Rate Blood Pressure 129/45 (mmHg) O2 Sat by Pulse 98 99 Oximetry Oxygen Devices in Use Now: Nasal Cannula - 4L Appearance: alert, no distress, breathing comfortably Eyes: No Scleral Icterus, PERRLA Ears/Nose/Mouth/Throat: Mucous Membranes Moist, - - edentulous Neck: NL Appearance and Movements; NL JVP, Trachea Midline Respiratory: Symmetrical Chest Expansion and Respiratory Effort, - - markedly improved air movement, prolonged expiratory phase, few expiratory wheezes Cardiovascular: NL Sounds; No Murmurs; No JVD, RRR Abdominal: NL Sounds; No Tenderness; No Distention, No Hepatosplenomegaly Lymphatic: No Cervical Adenopathy Extremities: No Edema Skin: No Rash or Ulcers Neurological: Alert and Oriented x 3 Result Diagrams: 02/19/17 06:05 02/19/17 06:05 Additional Lab and Data: Lab Results 02/16/17 02/16/17 02/16/17 Range/Units 14:35 14:35 14:35 WBC (3.5-10.8) 10^3/ul RBC (4.0-5.4) 10^6/ul Hgb (12.0-16.0) g/dl Hct (35-47) % MCV (80-97) fL MCH (27-31) pg MCHC (31-36) g/dl RDW (10.5-15) % Plt Count (150-450) 10^3/ul MPV (7.4-10.4) um3 Neut % (Auto) (38-83) % Lymph % (Auto) (25-47) % Perkins % (Auto) (1-9) % Eos % (Auto) (0-6) % Baso % (Auto) (0-2) % Absolute Neuts (auto) (1.5-7.7) 10^3/ul Absolute Lymphs (auto) (1.0-4.8) 10^3/ul Absolute Monos (auto) (0-0.8) 10^3/ul Absolute Eos (auto) (0-0.6) 10^3/ul Absolute Basos (auto) (0-0.2) 10^3/ul Absolute Nucleated RBC 10^3/ul Nucleated RBC % INR (Anticoag Therapy) 0.86 L (0.89-1.11) APTT 24.7 L (26.0-36.3) seconds D-Dimer, Quantitative 438 H (Less Than 230) ng/mL Sodium 144 (133-145) mmol/L Potassium 4.4 (3.5-5.0) mmol/L Chloride 105 (101-111) mmol/L Carbon Dioxide 33 H (22-32) mmol/L Anion Gap 6 (2-11) mmol/L BUN 38 H (6-24) mg/dL Creatinine 1.61 H (0.51-0.95) mg/dL Est GFR ( Amer) 40.7 (>60) Est GFR (Non-Af Amer) 31.6 (>60) BUN/Creatinine Ratio 23.6 H (8-20) Glucose 108 H (70-100) mg/dL Lactic Acid (0.5-2.0) mmol/L Calcium 9.2 (8.6-10.3) mg/dL Magnesium 2.3 (1.9-2.7) mg/dL Total Bilirubin 0.50 (0.2-1.0) mg/dL AST 87 H (13-39) U/L ALT 167 H (7-52) U/L Alkaline Phosphatase 104 (34-104) U/L Total Creatine Kinase 760 H (10-223) U/L CK-MB (CK-2) 67.8 H (0.6-6.3) ng/mL Troponin I 6.65 H* (<0.04) ng/mL C-Reactive Protein 2.94 (< 5.00) mg/L B-Natriuretic Peptide 730 H ( - 100) pg/mL Total Protein 6.2 L (6.4-8.9) g/dL Albumin 3.6 (3.2-5.2) g/dL Globulin 2.6 (2-4) g/dL Albumin/Globulin Ratio 1.4 (1-3) Lipase 17 (11.0-82.0) U/L TSH 1.07 (0.34-5.60) mcIU/mL Urine Color Urine Appearance Urine pH (5-9) Ur Specific [place] (1.010-1.030) Urine Protein (Negative) Urine Ketones (Negative) Urine Blood (Negative) Urine Nitrate (Negative) Urine Bilirubin (Negative) Urine Urobilinogen (Negative) Ur Leukocyte Esterase (Negative) Urine WBC (Auto) (Absent) Urine RBC (Auto) (Absent) Ur Squamous Epith Cells (Absent) Urine Bacteria (Absent) Hyaline Casts (Absent) Urine Yeast (Absent) Urine Glucose (Negative) 02/16/17 02/16/17 02/16/17 Range/Units 14:35 14:35 15:45 WBC 21.4 H (3.5-10.8) 10^3/ul RBC 3.18 L (4.0-5.4) 10^6/ul Hgb 9.2 L (12.0-16.0) g/dl Hct 30 L (35-47) % MCV 94 (80-97) fL MCH 29 (27-31) pg MCHC 31 (31-36) g/dl RDW 17 H (10.5-15) % Plt Count 219 (150-450) 10^3/ul MPV 10 (7.4-10.4) um3 Neut % (Auto) 87.0 H (38-83) % Lymph % (Auto) 6.8 L (25-47) % Perkins % (Auto) 5.7 (1-9) % Eos % (Auto) 0.1 (0-6) % Baso % (Auto) 0.4 (0-2) % Absolute Neuts (auto) 18.6 H (1.5-7.7) 10^3/ul Absolute Lymphs (auto) 1.5 (1.0-4.8) 10^3/ul Absolute Monos (auto) 1.2 H (0-0.8) 10^3/ul Absolute Eos (auto) 0 (0-0.6) 10^3/ul Absolute Basos (auto) 0.1 (0-0.2) 10^3/ul Absolute Nucleated RBC 0.01 10^3/ul Nucleated RBC % 0 INR (Anticoag Therapy) (0.89-1.11) APTT (26.0-36.3) seconds D-Dimer, Quantitative (Less Than 230) ng/mL Sodium (133-145) mmol/L Potassium (3.5-5.0) mmol/L Chloride (101-111) mmol/L Carbon Dioxide (22-32) mmol/L Anion Gap (2-11) mmol/L BUN (6-24) mg/dL Creatinine (0.51-0.95) mg/dL Est GFR ( Amer) (>60) Est GFR (Non-Af Amer) (>60) BUN/Creatinine Ratio (8-20) Glucose (70-100) mg/dL Lactic Acid 1.2 (0.5-2.0) mmol/L Calcium (8.6-10.3) mg/dL Magnesium (1.9-2.7) mg/dL Total Bilirubin (0.2-1.0) mg/dL AST (13-39) U/L ALT (7-52) U/L Alkaline Phosphatase (34-104) U/L Total Creatine Kinase (10-223) U/L CK-MB (CK-2) (0.6-6.3) ng/mL Troponin I (<0.04) ng/mL C-Reactive Protein (< 5.00) mg/L B-Natriuretic Peptide ( - 100) pg/mL Total Protein (6.4-8.9) g/dL Albumin (3.2-5.2) g/dL Globulin (2-4) g/dL Albumin/Globulin Ratio (1-3) Lipase (11.0-82.0) U/L TSH (0.34-5.60) mcIU/mL Urine Color Yellow Urine Appearance Clear Urine pH 5.0 (5-9) Ur Specific [place] 1.014 (1.010-1.030) Urine Protein Negative (Negative) Urine Ketones Negative (Negative) Urine Blood 1+ H (Negative) Urine Nitrate Negative (Negative) Urine Bilirubin Negative (Negative) Urine Urobilinogen Negative (Negative) Ur Leukocyte Esterase Negative (Negative) Urine WBC (Auto) Trace(0-5/hpf) (Absent) Urine RBC (Auto) Trace(0-2/hpf) (Absent) Ur Squamous Epith Cells Present H (Absent) Urine Bacteria Absent (Absent) Hyaline Casts Present H (Absent) Urine Yeast Present H (Absent) Urine Glucose Negative (Negative) Microbiology and Other Data: Microbiology 02/16/17 22:41 Nasal Screen MRSA (PCR)(NATASHA) - Final Nasal Mrsa Negative Assess/Plan/Problems-Billing Assessment: 1. Acute on Chronic Hypoxic Respiratory Failure Now resolved and back to her home O2 requirement of 4L. Seems mostly caused by a COPD exacerbation given profound bronchospasm on exam. She may have had some mild volume overload that contributed to the exacerbation, but she is now euvolemic. Continue standing nebs round the clock, solumedrol, and azithromycin --she may benefit from daily azithromycin fpc given her frequent exacerbations. 2. NSTEMI S/p 48 hours on heparin, now optimized with asa, plavix, statin, bb. Much better HR control now as respiratory status improves. Plan for LHC when respiratory status is improved; cardiology following. 3. Acute on chronic diastolic heart failure Contraction alkalosis today after diuresis; no more lasix today 4. CKD Now at baseline. Hold off on further diuresis with the anticipation that she will receive a dye load with a LHC. 5. DVT ppx--SC heparin 6. She would accept intubation/resuscitation as needed.
[2017-02-19] MEDS ORDERED: methylPREDNISolone SOD 40 MG* 1 ML VIAL IV SCH (13:00)
[2017-02-19] MEDS: Heparin VIAL(*) 5000 UNITS/ML VIAL (FIVE THOUSAND) SUBCUT SCH ×2 (14:32→21:23)
[2017-02-19] MEDS: Gabapentin CAP(*) 100 MG PO SCH (21:23)
[2017-02-19] MEDS: Atorvastatin* 40 MG TAB PO SCH (21:23)
[2017-02-19] MEDS: Nitro Patch/OINT Remove PATCH OFF SCH (21:27)
[2017-02-20] MEDS: Albuterol/Ipratropium NEB.SOL* Albuterol 2.5 MG/Ipratropium 0.5 MG 3 ML INH SCH ×4 (01:05→17:28)
[2017-02-20] MEDS: Heparin VIAL(*) 5000 UNITS/ML VIAL (FIVE THOUSAND) SUBCUT SCH ×3 (06:10→20:27)
[2017-02-20] MEDS: Metoprolol Succinate XL TAB* 50 MG PO SCH ×2 (09:14→20:27)
[2017-02-20] MEDS: Montelukast Sodium TAB* 10 MG PO SCH (09:14)
[2017-02-20] MEDS: Cyanocobalamin TAB* 500 MCG PO SCH (09:14)
[2017-02-20] MEDS: Clopidogrel TAB* 75 MG PO SCH (09:14)
[2017-02-20] MEDS: Aspirin EC Low Dose* 81 MG TAB.EC PO SCH (09:15)
[2017-02-20] MEDS: Nitroglycerin 0.2 MG/HR PATCH* (5 MG) TRANSDERM SCH (09:15)
[2017-02-20] MEDS: methylPREDNISolone SOD 40 MG* 1 ML VIAL IV SCH ×2 (11:36→20:27)
--- NOTE | 2017-02-20 13:26 | PN ---
Subjective Date of Service: 02/20/17 Interval History: Patient seen today. Reports continued improvement in breathing although not back to baseline. Had BM this morning. No chest pain. Family History: Unchanged from Admission Social History: Unchanged from Admission Past Medical History: Unchanged from Admission Objective Active Medications: Albuterol/Ipratropium (Duoneb (Albuterol 2.5 Mg/Ipratropium 0.5 Mg)) 1 neb INH [id number] AWAKE [facility] Aspirin (Aspirin Ec Low Dose*) 81 mg PO DAILY [facility] Atorvastatin Calcium (Lipitor*) 40 mg PO 2100 [facility] Clopidogrel Bisulfate (Plavix Tab*) 75 mg PO DAILY [facility] Cyanocobalamin (Vitamin B12 Tab*) 1,000 mcg PO DAILY [facility] Gabapentin (Neurontin Cap(*)) 200 mg PO BEDTIME [facility] Heparin Sodium (Porcine) (Heparin Flush Picc/Ml/Cvc(*)) 1 - 3 ml FLUSH 0600, 1800 [facility] Heparin Sodium (Porcine) (Heparin Vial(*)) 5,000 units SUBCUT Q8HR [facility] [place] Methylprednisolone Sodium Succinate (Solu-Medrol 40 Mg) 40 mg IV Q12HR@0800, 2000 [facility] Metoprolol Succinate (Toprol Xl Tab*) 50 mg PO BID [facility] Montelukast Sodium (Singulair Tab*) 10 mg PO DAILY [facility] Nitroglycerin (Nitroglycerin 5 Mg Patch*) 1 patch TRANSDERM DAILY [facility] Pharmacy Profile Note (Nitro Patch/Oint Remove*) 1 note PATCH OFF 2100 [facility] Vital Signs 02/19/17 02/19/17 02/19/17 15:39 18:11 19:34 Temperature 98.6 F 98.2 F Pulse Rate 67 78 73 Respiratory 20 18 18 Rate Blood Pressure 149/51 146/66 (mmHg) O2 Sat by Pulse 97 95 96 Oximetry 02/20/17 02/20/17 02/20/17 07:21 07:46 08:00 Temperature Pulse Rate 60 68 Respiratory 18 22 19 Rate Blood Pressure 156/44 (mmHg) O2 Sat by Pulse 98 98 Oximetry Oxygen Devices in Use Now: Nasal Cannula - 4L Appearance: Elderly, F, laying in bed in NAD Eyes: No Scleral Icterus Ears/Nose/Mouth/Throat: Mucous Membranes Moist Neck: NL Appearance and Movements; NL JVP Respiratory: Symmetrical Chest Expansion and Respiratory Effort, - - Mild diffuse end-expiratory wheezing, good air movement Cardiovascular: NL Sounds; No Murmurs; No JVD, RRR Abdominal: NL Sounds; No Tenderness; No Distention Lymphatic: No Cervical Adenopathy Extremities: No Edema Skin: - - Scattered ecchymoses Neurological: Alert and Oriented x 3 Result Diagrams: 02/19/17 06:05 02/19/17 06:05 Assess/Plan/Problems-Billing Assessment: NSTEMI, acute on chronic hypoxic respiratory failure 2/2 COPD exacerbation, acute on chronic diastolic CHF in a 71 yo F with hx of chronic diastolic CHF, CKD - Patient Problems (1) Acute on chronic respiratory failure with hypoxia Current Visit: Yes Comment: Now resolved and back to her home O2 requirement of 4L. Seems mostly caused by a COPD exacerbation given profound bronchospasm on exam. She may have had some mild volume overload that contributed to the exacerbation, but she is now euvolemic. Continue standing nebs round the clock , solumedrol, and azithromycin--she may benefit from daily azithromycin alf given her frequent exacerbations. (2) NSTEMI (non-ST elevated myocardial infarction) Current Visit: Yes Comment: S/P 48 hours heparin gtt. Continue ASA/Plavix/ Statin/Metoprolol. Appreciate Cardiology assistance, trying to optimize for LHC. Will recheck H/H today and discuss need for additional transfusion with Cardiology. (3) Acute on chronic diastolic heart failure Current Visit: No Comment: Resolved, seems to be euvolemic. Holding on diuresis for now. (4) Stage III chronic kidney disease Current Visit: No Comment: Creatinine seems to be about baseline. Avoid nephrotoxic medications. Holding Lasix in anticipation of dye load. (5) DVT prophylaxis Current Visit: No Comment: HSQ
[2017-02-20 14:14] LABS: Hematocrit 29 % (35-47); Hemoglobin 9.2 g/dl (12.0-16.0)
[2017-02-20] MEDS: Gabapentin CAP(*) 100 MG PO SCH (20:27)
[2017-02-20] MEDS: Atorvastatin* 40 MG TAB PO SCH (20:27)
[2017-02-20] MEDS: Nitro Patch/OINT Remove PATCH OFF SCH (20:35)
[2017-02-21] MEDS: Heparin VIAL(*) 5000 UNITS/ML VIAL (FIVE THOUSAND) SUBCUT SCH ×3 (05:25→20:37)
[2017-02-21 05:35] LABS: Hematocrit 28 % (35-47); Hemoglobin 8.8 g/dl (12.0-16.0); Mean Corpuscular HGB Conc 32 g/dl (31-36); Mean Corpuscular Hemoglobin 29 pg (27-31); Mean Corpuscular Volume 90 fL (80-97); Mean Platelet Volume 10 um3 (7.4-10.4); Red Blood Count 3.09 10^6/ul (4.0-5.4); Red Cell Distribution Width 18 % (10.5-15); White Blood Count 12.3 10^3/ul (3.5-10.8)
[2017-02-21 05:50] LABS: BUN/Creatinine Ratio 35.2 (8-20); Calcium 8.7 mg/dL (8.6-10.3); EGFR African American 54.5 (>60); EGFR Non-African American 42.4 (>60); Potassium 4.3 mmol/L (3.5-5.0)
[2017-02-21] MEDS: Albuterol/Ipratropium NEB.SOL* Albuterol 2.5 MG/Ipratropium 0.5 MG 3 ML INH SCH ×4 (06:02→19:56)
[2017-02-21] MEDS: Clopidogrel TAB* 75 MG PO SCH (09:03)
[2017-02-21] MEDS: Aspirin EC Low Dose* 81 MG TAB.EC PO SCH (09:03)
[2017-02-21] MEDS: Metoprolol Succinate XL TAB* 50 MG PO SCH (09:03)
[2017-02-21] MEDS: Montelukast Sodium TAB* 10 MG PO SCH (09:04)
[2017-02-21] MEDS: Cyanocobalamin TAB* 500 MCG PO SCH (09:04)
[2017-02-21] MEDS: Nitroglycerin 0.2 MG/HR PATCH* (5 MG) TRANSDERM SCH (09:04)
[2017-02-21] MEDS: methylPREDNISolone SOD 40 MG* 1 ML VIAL IV SCH ×2 (09:13→20:36)
[2017-02-21] MEDS ORDERED: Ipratropium 0.5MG/2.5ML NEB* 0.5 MG/2.5 ML NEB.SOLN INH PRN (11:25)
--- NOTE | 2017-02-21 11:29 | PN ---
Subjective Date of Service: 02/21/17 Interval History: Patient seen this morning. Reports continued SOB but slowly improving. Has not been ambulating much, just to commode and back. Lives alone. Still with dark- tinged sputum. No chest pain. Family History: Unchanged from Admission Social History: Unchanged from Admission Past Medical History: Unchanged from Admission Objective Active Medications: Albuterol/Ipratropium (Duoneb (Albuterol 2.5 Mg/Ipratropium 0.5 Mg)) 1 neb INH [id number] AWAKE [facility] Aspirin (Aspirin Ec Low Dose*) 81 mg PO DAILY [facility] Atorvastatin Calcium (Lipitor*) 40 mg PO 2100 [facility] Clopidogrel Bisulfate (Plavix Tab*) 75 mg PO DAILY [facility] Cyanocobalamin (Vitamin B12 Tab*) 1,000 mcg PO DAILY [facility] Gabapentin (Neurontin Cap(*)) 200 mg PO BEDTIME [facility] Heparin Sodium (Porcine) (Heparin Flush Picc/Ml/Cvc(*)) 1 - 3 ml FLUSH 0600, 1800 [facility] Heparin Sodium (Porcine) (Heparin Vial(*)) 5,000 units SUBCUT Q8HR [facility] Methylprednisolone Sodium Succinate (Solu-Medrol 40 Mg) 40 mg IV Q12HR@0800, 2000 [facility] Metoprolol Succinate (Toprol Xl Tab*) 50 mg PO BID [facility] Montelukast Sodium (Singulair Tab*) 10 mg PO DAILY [facility] Nitroglycerin (Nitroglycerin 5 Mg Patch*) 1 patch TRANSDERM DAILY [facility] Pharmacy Profile Note (Nitro Patch/Oint Remove*) 1 note PATCH OFF 2100 [facility] Vital Signs 02/20/17 02/20/17 02/20/17 12:21 15:30 15:42 Temperature 98.6 F Pulse Rate 72 72 Respiratory 24 25 Rate Blood Pressure 147/60 (mmHg) O2 Sat by Pulse 99 96 97 Oximetry 02/20/17 02/20/17 02/20/17 17:29 19:59 20:00 Temperature 98.4 F Pulse Rate 77 65 Respiratory 28 20 16 Rate Blood Pressure 130/69 (mmHg) O2 Sat by Pulse 97 100 Oximetry 02/20/17 02/20/17 02/20/17 20:27 22:27 23:16 Temperature 98.3 F Pulse Rate 48 Respiratory 16 16 16 Rate Blood Pressure 136/53 (mmHg) O2 Sat by Pulse 96 Oximetry 0902/21/17 02/21/17 00:03 04:07 06:08 Temperature 98.2 F Pulse Rate 63 61 Respiratory 18 16 18 Rate Blood Pressure 132/50 (mmHg) O2 Sat by Pulse 97 97 97 Oximetry 02/21/17 02/21/17 07:44 08:00 Temperature 98.0 F Pulse Rate 66 Respiratory 24 17 Rate Blood Pressure 135/48 (mmHg) O2 Sat by Pulse 100 Oximetry Oxygen Devices in Use Now: Nasal Cannula - 4L Appearance: Elderly, F, laying in bed in NAD Eyes: No Scleral Icterus Ears/Nose/Mouth/Throat: Mucous Membranes Moist Neck: NL Appearance and Movements; NL JVP Respiratory: - - Moderate air movement, diffuse wheezing throughout Cardiovascular: NL Sounds; No Murmurs; No JVD, RRR Abdominal: NL Sounds; No Tenderness; No Distention Lymphatic: No Cervical Adenopathy Extremities: No Edema Skin: - - Scattered ecchymoses Neurological: Alert and Oriented x 3 Result Diagrams: 02/21/17 05:27 02/21/17 05:27 Additional Lab and Data: Microbiology and Other Data: Assess/Plan/Problems-Billing Assessment: NSTEMI, acute on chronic hypoxic respiratory failure 2/2 COPD exacerbation, acute on chronic diastolic CHF in a 71 yo F with hx of chronic diastolic CHF, CKD - Patient Problems (1) Acute on chronic respiratory failure with hypoxia Current Visit: Yes Comment: Now resolved and back to her home O2 requirement of 4L. Seems mostly caused by a COPD exacerbation given profound bronchospasm on exam. She may have had some mild volume overload that contributed to the exacerbation, but she is now euvolemic. Continue standing nebs round the clock , solumedrol (2) NSTEMI (non-ST elevated myocardial infarction) Current Visit: Yes Comment: S/P 48 hours heparin gtt. Continue ASA/Plavix/ Statin/Metoprolol. Appreciate Cardiology assistance, trying to optimize for [facility]. Will discuss further with cardiology. (3) Acute on chronic diastolic heart failure Current Visit: No Comment: Resolved, seems to be euvolemic. Holding on diuresis for now. (4) Stage III chronic kidney disease Current Visit: No Comment: Creatinine improved. Avoid nephrotoxic medications. Holding Lasix in anticipation of possible dye load. (5) DVT prophylaxis Current Visit: No Comment: HSQ
[2017-02-21] MEDS: Losartan TAB* 25 MG PO SCH (12:18)
[2017-02-21] MEDS: Mometasone/Formoter 200/5 MDI INH SCH ×2 (13:11→20:06)
--- NOTE | 2017-02-21 15:40 | PN ---
Subjective Date of Service: 02/21/17 - CC: sob Interval History: Mrs Lambert's breathing has improved a bit. She feels that the inhalers and more aggressive regimen are helping. She denies ever having chest pain. Pt worried about her BP being elevated, wanted to ensure meds held getting added back. Medications Active Medications: Albuterol/Ipratropium (Duoneb (Albuterol 2.5 Mg/Ipratropium 0.5 Mg)) 1 neb INH [id number] AWAKE [facility] Last Admin: 02/21/17 11:57 Dose: 1 neb Aspirin (Aspirin Ec Low Dose*) 81 mg PO DAILY [facility] Last Admin: 02/21/17 09:03 Dose: 81 mg Atorvastatin Calcium (Lipitor*) 40 mg PO 2100 [facility] Last Admin: 02/20/17 20:27 Dose: 40 mg Clopidogrel Bisulfate (Plavix Tab*) 75 mg PO DAILY [facility] Last Admin: 02/21/17 09:03 Dose: 75 mg Cyanocobalamin (Vitamin B12 Tab*) 1,000 mcg PO DAILY [facility] Last Admin: 02/21/17 09:04 Dose: 1,000 mcg Gabapentin (Neurontin Cap(*)) 200 mg PO BEDTIME [facility] Last Admin: 02/20/17 20:27 Dose: 200 mg Heparin Sodium (Porcine) (Heparin Flush Picc/Ml/Cvc(*)) 1 - 3 ml FLUSH 0600, 1800 [facility] PRN Reason: Protocol Last Admin: 02/21/17 05:25 Dose: 1 ml Heparin Sodium (Porcine) (Heparin Vial(*)) 5,000 units SUBCUT Q8HR [facility] Last Admin: 02/21/17 13:39 Dose: 5,000 units Ipratropium [place] (Atrovent 0.5 Mg Neb.Olamide*) 0.5 mg INH Q4H PRN PRN Reason: SOB/WHEEZING Losartan Potassium (Cozaar Tab*) 100 mg PO DAILY [facility] Last Admin: 02/21/17 12:18 Dose: 100 mg Methylprednisolone Sodium Succinate (Solu-Medrol 40 Mg) 40 mg IV Q12HR@0800, 2000 [facility] Last Admin: 02/21/17 09:13 Dose: 40 mg Metoprolol Succinate (Toprol Xl Tab*) 50 mg PO BID [facility] Last Admin: 02/21/17 09:03 Dose: 50 mg Mometasone Furoate/Formoterol Fumar (Dulera 200/5 Mdi*) 1 puff INH BID [facility] PRN Reason: Protocol Last Admin: 02/21/17 13:11 Dose: 1 puff Montelukast Sodium (Singulair Tab*) 10 mg PO DAILY [facility] Last Admin: 02/21/17 09:04 Dose: 10 mg Nitroglycerin (Nitroglycerin 5 Mg Patch*) 1 patch TRANSDERM DAILY [facility] Last Admin: 02/21/17 09:04 Dose: 1 patch Pharmacy Profile Note (Nitro Patch/Oint Remove*) 1 note PATCH OFF 2099 [facility] Last Admin: 02/20/17 20:35 Dose: 1 note Objective Vital Signs: Temp Pulse Resp BP Pulse Ox 98.4 F 68 16 168/70 100 02/21/17 15:13 02/21/17 15:13 02/21/17 15:13 02/21/17 11:45 02/21/17 15:13 Oxygen Devices in Use Now: Nasal Cannula - 4L Appearance: centripitally obese barrel chested small elderly woman, O2 on, chronically ill, lying at 30 degrees, mildly tachypnic but comfortable. Eyes: No Scleral Icterus, PERRLA Ears/Nose/Mouth/Throat: Mucous Membranes Moist Neck: Trachea Midline, No Thyroid Enlargement, Masses Respiratory: Symmetrical Chest Expansion and Respiratory Effort - distant breath sounds, no wheezing, no rales. Cardiovascular: RRR - no murmurs. Abdominal: No Hepatosplenomegaly - non tender, normal bowel sounds. Extremities: No Edema, No Clubbing, Cyanosis, - - trace to mild edema. Skin: No Rash or Ulcers Neurological: Alert and Oriented x 3 Lines/Tubes/Other Access: Clean, Dry and Intact Peripheral IV Laboratory Results: 02/21/17 05:27 02/21/17 05:27 INR (Anticoag Therapy) 0.86 (0.89-1.11) L 02/16/17 14:35 APTT 79.2 seconds (26.0-36.3) H 02/18/17 05:50 Total Bilirubin 0.40 mg/dL (0.2-1.0) 02/18/17 05:50 Direct Bilirubin 0.00 mg/dL (0.03-0.18) L 02/18/17 05:50 Indirect Bilirubin Not Reportable 02/18/17 05:50 AST 25 U/L (13-39) 02/18/17 05:50 ALT 79 U/L (7-52) H 02/18/17 05:50 Alkaline Phosphatase 66 U/L (34-104) 02/18/17 05:50 CK-MB (CK-2) 67.8 ng/mL (0.6-6.3) H 02/16/17 14:35 B-Natriuretic Peptide 730 pg/mL (-100) H 02/16/17 14:35 Total Protein 5.3 g/dL (6.4-8.9) L 02/18/17 05:50 Albumin 3.1 g/dL (3.2-5.2) L 02/18/17 05:50 Globulin 2.2 g/dL (2-4) 02/18/17 05:50 Albumin/Globulin Ratio 1.4 (1-3) 02/18/17 05:50 Triglycerides 104 mg/dL 02/17/17 06:10 Cholesterol 171 mg/dL 02/17/17 06:10 LDL Cholesterol 84 mg/dL 02/17/17 06:10 HDL Cholesterol 66.5 mg/dL 02/17/17 06:10 TSH 1.07 mcIU/mL (0.34-5.60) 02/16/17 14:35 02/16/17 02/16/17 02/17/17 18:55 22:30 02:27 Troponin I 10.84 H* 9.60 H* 6.12 H* 02/17/17 02/18/17 02/19/17 06:10 05:50 06:05 Troponin I 4.96 H* 3.88 H* 2.06 H* Assessment/Plan 71 yo female admitted with SOB, trops elevated, RI worse, BNP increased. Clinically improving with steroids, inhalers, supportive care and antianginals. BP is high. Slowly improving renal function, troponins and air movement but still very fragile and chronically ill. Consider decreasing metoprolol and instead of adding back norvasc adding cardizem 120 mg to see if this helps severe O2 dependant COPD and BP while still providing antianginal effects. Cardiology will continue to follow. Medical managment of her presumed CAD recommended at this point, due to her renal function, pulmonary status and other comorbidities cath not planned this admission at this point in time.
[2017-02-21] MEDS: Atorvastatin* 40 MG TAB PO SCH (20:37)
[2017-02-21] MEDS: Metoprolol Succinate XL TAB* 25 MG PO SCH (20:37)
[2017-02-21] MEDS: Gabapentin CAP(*) 100 MG PO SCH (20:37)
[2017-02-21] MEDS: Nitro Patch/OINT Remove PATCH OFF SCH (20:44)
[2017-02-22] MEDS: Albuterol/Ipratropium NEB.SOL* Albuterol 2.5 MG/Ipratropium 0.5 MG 3 ML INH SCH ×4 (00:58→19:55)
[2017-02-22] MEDS: Heparin VIAL(*) 5000 UNITS/ML VIAL (FIVE THOUSAND) SUBCUT SCH ×3 (05:37→20:57)
[2017-02-22] MEDS: Mometasone/Formoter 200/5 MDI INH SCH ×2 (07:45→19:55)
[2017-02-22] MEDS: methylPREDNISolone SOD 40 MG* 1 ML VIAL IV SCH ×2 (08:30→20:56)
[2017-02-22] MEDS: Aspirin EC Low Dose* 81 MG TAB.EC PO SCH (08:30)
[2017-02-22] MEDS: Diltiazem CD CAP* 120 MG PO SCH (08:31)
[2017-02-22] MEDS: Losartan TAB* 25 MG PO SCH (08:31)
[2017-02-22] MEDS: Clopidogrel TAB* 75 MG PO SCH (08:31)
[2017-02-22] MEDS: Metoprolol Succinate XL TAB* 25 MG PO SCH ×2 (08:31→20:57)
[2017-02-22] MEDS: Cyanocobalamin TAB* 500 MCG PO SCH (08:31)
[2017-02-22] MEDS: Nitroglycerin 0.2 MG/HR PATCH* (5 MG) TRANSDERM SCH (08:32)
[2017-02-22] MEDS: Montelukast Sodium TAB* 10 MG PO SCH (08:50)
[2017-02-22] MEDS ORDERED: Diltiazem CD CAP* 120 MG PO SCH (09:00)
--- NOTE | 2017-02-22 14:57 | PN ---
Subjective Date of Service: 02/22/17 Interval History: Patient seen this morning. Reports breathing feels like it is improving overall. Wheezing less. Just got back from ambulating to the bathroom and feels very winded but this is not unusual for her. Still with productive cough. Family History: Unchanged from Admission Social History: Unchanged from Admission Past Medical History: Unchanged from Admission Objective Active Medications: Albuterol (Ventolin 2.5 Mg/3 Ml Neb.Olamide*) 2.5 mg INH Q2H PRN Albuterol/Ipratropium (Duoneb (Albuterol 2.5 Mg/Ipratropium 0.5 Mg)) 1 neb INH [id number] AWAKE [facility] Aspirin (Aspirin Ec Low Dose*) 81 mg PO DAILY [facility] Atorvastatin Calcium (Lipitor*) 40 mg PO 2100 [facility] Clopidogrel Bisulfate (Plavix Tab*) 75 mg PO DAILY [facility] Cyanocobalamin (Vitamin B12 Tab*) 1,000 mcg PO DAILY [facility] Diltiazem HCl (Cardizem Cd Cap*) 120 mg PO DAILY [facility] Gabapentin (Neurontin Cap(*)) 200 mg PO BEDTIME [facility] Heparin Sodium (Porcine) (Heparin Flush Picc/Ml/Cvc(*)) 1 - 3 ml FLUSH 0600, 1800 [facility] Heparin Sodium (Porcine) (Heparin Vial(*)) 5,000 units SUBCUT Q8HR [facility] Losartan Potassium (Cozaar Tab*) 100 mg PO DAILY [facility] Methylprednisolone Sodium Succinate (Solu-Medrol 40 Mg) 40 mg IV Q12HR@0800, 2000 [facility] Metoprolol Succinate (Toprol Xl Tab*) 25 mg PO BID [facility] Mometasone Furoate/Formoterol Fumar (Dulera 200/5 Mdi*) 1 puff INH BID [facility] Montelukast Sodium (Singulair Tab*) 10 mg PO DAILY [facility] Nitroglycerin (Nitroglycerin 5 Mg Patch*) 1 patch TRANSDERM DAILY [facility] Pharmacy Profile Note (Nitro Patch/Oint Remove*) 1 note PATCH OFF 2100 [facility] Vital Signs 02/21/17 02/21/17 02/21/17 15:13 16:42 19:53 Temperature 98.4 F 98.2 F Pulse Rate 68 68 76 Respiratory 16 20 16 Rate Blood Pressure 150/46 (mmHg) O2 Sat by Pulse 100 99 99 Oximetry 02/21/17 02/21/17 02/21/17 19:58 20:00 20:37 Temperature Pulse Rate 67 Respiratory 18 16 16 Rate Blood Pressure (mmHg) O2 Sat by Pulse 97 Oximetry 02/21/17 02/22/17 02/22/17 22:37 00:17 01:00 Temperature 98.5 F Pulse Rate 70 Respiratory 16 20 18 Rate Blood Pressure 150/52 (mmHg) O2 Sat by Pulse 96 99 Oximetry 02/22/17 02/22/17 02/22/17 03:56 07:29 07:46 Temperature 98.3 F 98.2 F Pulse Rate 66 67 66 Respiratory 16 24 18 Rate Blood Pressure 141/49 133/76 (mmHg) O2 Sat by Pulse 99 94 98 Oximetry 02/22/17 12:38 Temperature Pulse Rate 65 Respiratory 20 Rate Blood Pressure (mmHg) O2 Sat by Pulse 97 Oximetry Oxygen Devices in Use Now: Nasal Cannula - 4L Appearance: Elderly, F, sitting in chair, tachypnea Eyes: No Scleral Icterus Ears/Nose/Mouth/Throat: Mucous Membranes Moist Neck: NL Appearance and Movements; NL JVP Respiratory: - - Fair air movement, no wheezing Cardiovascular: NL Sounds; No Murmurs; No JVD, RRR Abdominal: NL Sounds; No Tenderness; No Distention Lymphatic: No Cervical Adenopathy Extremities: No Edema Skin: No Rash or Ulcers Neurological: Alert and Oriented x 3 Result Diagrams: 02/21/17 05:27 02/21/17 05:27 Additional Lab and Data: Microbiology and Other Data: Assess/Plan/Problems-Billing Assessment: NSTEMI, acute on chronic hypoxic respiratory failure 2/2 COPD exacerbation, acute on chronic diastolic CHF in a 71 yo F with hx of chronic diastolic CHF, CKD - Patient Problems (1) Acute on chronic respiratory failure with hypoxia Current Visit: Yes Comment: Now resolved and back to her home O2 requirement of 4L. Seems mostly caused by a COPD exacerbation given profound bronchospasm on exam but maybe some cardiac contribution as well. She may have had some mild volume overload that contributed to the exacerbation, but she is now euvolemic. Continue standing nebs round the clock, solumedrol, dulera (2) NSTEMI (non-ST elevated myocardial infarction) Current Visit: Yes Comment: S/P 48 hours heparin gtt. Continue ASA/Plavix/ Statin/Metoprolol. Appreciate Cardiology assistance, hold on [facility] this admission , will treat medically. (3) HTN (hypertension) Current Visit: No Comment: Changed BP meds a bit to try to reduce amount of beta-blockers in the setting of severe COPD. Contiune Cardizem, ARB, lower dose of metoprolol. (4) Acute on chronic diastolic heart failure Current Visit: No Comment: Resolved, seems to be euvolemic. Holding on diuresis for now. (5) Stage III chronic kidney disease Current Visit: No Comment: Creatinine improved. Avoid nephrotoxic medications. (6) DVT prophylaxis Current Visit: No Comment: HSQ
[2017-02-22] MEDS: Albuterol 2.5 MG/3 ML NEB.SOL* (0.083%) INH PRN (17:10)
[2017-02-22] MEDS: Gabapentin CAP(*) 100 MG PO SCH (20:56)
[2017-02-22] MEDS: Atorvastatin* 40 MG TAB PO SCH (20:56)
[2017-02-22] MEDS: Nitro Patch/OINT Remove PATCH OFF SCH (20:57)
[2017-02-23] MEDS: Albuterol/Ipratropium NEB.SOL* Albuterol 2.5 MG/Ipratropium 0.5 MG 3 ML INH SCH ×4 (01:00→19:51)
[2017-02-23] MEDS: Heparin VIAL(*) 5000 UNITS/ML VIAL (FIVE THOUSAND) SUBCUT SCH ×3 (06:11→20:29)
[2017-02-23] MEDS: Mometasone/Formoter 200/5 MDI INH SCH ×2 (07:52→19:47)
--- NOTE | 2017-02-23 09:36 | PN ---
Subjective Date of Service: 02/23/17 Interval History: Short run of SVT this AM Patient seen this morning. Reports breathing continues to improve. Still with cough, no chest pain or palpitations. She has been a bit stubborn with PT but I encouraged her to get up and ambulate as much as possible. Family History: Unchanged from Admission Social History: Unchanged from Admission Past Medical History: Unchanged from Admission Objective Active Medications: Albuterol (Ventolin 2.5 Mg/3 Ml Neb.Olamide*) 2.5 mg INH Q2H PRN Albuterol/Ipratropium (Duoneb (Albuterol 2.5 Mg/Ipratropium 0.5 Mg)) 1 neb INH [id number] AWAKE [facility] Aspirin (Aspirin Ec Low Dose*) 81 mg PO DAILY [facility] Atorvastatin Calcium (Lipitor*) 40 mg PO 2100 [facility] Clopidogrel Bisulfate (Plavix Tab*) 75 mg PO DAILY [facility] Cyanocobalamin (Vitamin B12 Tab*) 1,000 mcg PO DAILY [facility] Diltiazem HCl (Cardizem Cd Cap*) 120 mg PO DAILY [facility] Gabapentin (Neurontin Cap(*)) 200 mg PO BEDTIME [facility] Heparin Sodium (Porcine) (Heparin Flush Picc/Ml/Cvc(*)) 1 - 3 ml FLUSH 0600, 1800 [facility] Heparin Sodium (Porcine) (Heparin Vial(*)) 5,000 units SUBCUT Q8HR [facility] Losartan Potassium (Cozaar Tab*) 100 mg PO DAILY [facility] Methylprednisolone Sodium Succinate (Solu-Medrol 40 Mg) 40 mg IV Q12HR@0800, 2000 [facility] Metoprolol Succinate (Toprol Xl Tab*) 25 mg PO BID [facility] Mometasone Furoate/Formoterol Fumar (Dulera 200/5 Mdi*) 1 puff INH BID [facility] Montelukast Sodium (Singulair Tab*) 10 mg PO DAILY [facility] Nitroglycerin (Nitroglycerin 5 Mg Patch*) 1 patch TRANSDERM DAILY [facility] Nystatin (Nystatin Suspension*) 500,000 units PO QID [facility] Pharmacy Profile Note (Nitro Patch/Oint Remove*) 1 note PATCH OFF 2100 [facility] Vital Signs 02/22/17 02/22/17 02/22/17 11:28 12:38 15:40 Temperature 98.5 F 98.5 F Pulse Rate 100 65 62 Respiratory 22 20 18 Rate Blood Pressure 144/52 155/47 (mmHg) O2 Sat by Pulse 99 97 97 Oximetry 02/22/17 02/22/17 02/22/17 17:11 20:00 20:02 Temperature 97.7 F Pulse Rate 70 75 72 Respiratory 20 18 20 Rate Blood Pressure 129/54 (mmHg) O2 Sat by Pulse 98 99 100 Oximetry 02/23/17 02/23/17 02/23/17 03:47 07:54 07:55 Temperature 98.4 F Pulse Rate 110 97 Respiratory 24 20 Rate Blood Pressure 99/70 (mmHg) O2 Sat by Pulse 93 99 99 Oximetry Oxygen Devices in Use Now: Nasal Cannula - 4L Appearance: Elderly, F, laying in bed in NAD Eyes: No Scleral Icterus Ears/Nose/Mouth/Throat: Mucous Membranes Moist Neck: NL Appearance and Movements; NL JVP Respiratory: Symmetrical Chest Expansion and Respiratory Effort, - - Good air movement, no wheezing appreciated Cardiovascular: NL Sounds; No Murmurs; No JVD, RRR Abdominal: NL Sounds; No Tenderness; No Distention Lymphatic: No Cervical Adenopathy Extremities: No Edema Skin: No Rash or Ulcers Neurological: Alert and Oriented x 3 Result Diagrams: 02/21/17 05:27 02/21/17 05:27 Additional Lab and Data: Microbiology and Other Data: Assess/Plan/Problems-Billing Assessment: NSTEMI, acute on chronic hypoxic respiratory failure 2/2 COPD exacerbation, acute on chronic diastolic CHF in a 71 yo F with hx of chronic diastolic CHF, CKD - Patient Problems (1) Acute on chronic respiratory failure with hypoxia Current Visit: Yes Comment: Now resolved and back to her home O2 requirement of 4L. Seems mostly caused by a COPD exacerbation given profound bronchospasm on exam but maybe some cardiac contribution as well. She may have had some mild volume overload that contributed to the exacerbation, but she is now euvolemic. Continue standing nebs round the clock, dulera. Will change to PO prednisone today. (2) NSTEMI (non-ST elevated myocardial infarction) Current Visit: Yes Comment: S/P 48 hours heparin gtt. Continue ASA/Plavix/ Statin/Metoprolol. Appreciate Cardiology assistance, hold on [facility] this admission , will treat medically. Check lytes today, replete K and Mg as needed. (3) HTN (hypertension) Current Visit: No Comment: Changed BP meds a bit to try to reduce amount of beta-blockers in the setting of severe COPD. Contiune Cardizem, ARB, lower dose of metoprolol. (4) Acute on chronic diastolic heart failure Current Visit: No Comment: Resolved, seems to be euvolemic. Holding on diuresis for now. (5) Stage III chronic kidney disease Current Visit: No Comment: Creatinine improved. Avoid nephrotoxic medications. (6) DVT prophylaxis Current Visit: No Comment: HSQ Status and Disposition: May need [facility]
[2017-02-23] MEDS: Aspirin EC Low Dose* 81 MG TAB.EC PO SCH (10:31)
[2017-02-23] MEDS: Clopidogrel TAB* 75 MG PO SCH (10:31)
[2017-02-23] MEDS: Cyanocobalamin TAB* 500 MCG PO SCH (10:31)
[2017-02-23] MEDS: Diltiazem CD CAP* 120 MG PO SCH (10:32)
[2017-02-23] MEDS: Nitroglycerin 0.2 MG/HR PATCH* (5 MG) TRANSDERM SCH (10:33)
[2017-02-23] MEDS: Metoprolol Succinate XL TAB* 25 MG PO SCH ×2 (10:33→20:28)
[2017-02-23] MEDS: predniSONE TAB* 50 MG PO SCH (10:33)
[2017-02-23] MEDS: Losartan TAB* 25 MG PO SCH (10:33)
[2017-02-23] MEDS: Montelukast Sodium TAB* 10 MG PO SCH (10:34)
[2017-02-23 11:06] LABS: BUN/Creatinine Ratio 27.9 (8-20); Calcium 8.7 mg/dL (8.6-10.3); EGFR African American 52.5 (>60); EGFR Non-African American 40.9 (>60); Magnesium 2.2 mg/dL (1.9-2.7); Potassium 4.2 mmol/L (3.5-5.0)
[2017-02-23] MEDS: Nystatin SUSPENSION* 100000 UNITS/ML 5 ML UDC PO SCH ×3 (11:55→20:29)
[2017-02-23] MEDS ORDERED: Morphine ORAL.SOLN 10 mg* 2 MG/ML UDC 5 ml PO ONE (12:01)
[2017-02-23] MEDS: Albuterol 2.5 MG/3 ML NEB.SOL* (0.083%) INH PRN (19:43)
[2017-02-23] MEDS: Atorvastatin* 40 MG TAB PO SCH (20:28)
[2017-02-23] MEDS: Gabapentin CAP(*) 100 MG PO SCH (20:28)
[2017-02-23] MEDS: Nitro Patch/OINT Remove PATCH OFF SCH (20:39)
[2017-02-23] MEDS: methylPREDNISolone SOD 40 MG* 1 ML VIAL IV SCH (20:59)
[2017-02-24] MEDS ORDERED: LORazepam TAB(*) 0.5 MG PO ONE (00:27)
[2017-02-24] MEDS: Albuterol/Ipratropium NEB.SOL* Albuterol 2.5 MG/Ipratropium 0.5 MG 3 ML INH SCH ×4 (01:10→20:38)
[2017-02-24] MEDS: Heparin VIAL(*) 5000 UNITS/ML VIAL (FIVE THOUSAND) SUBCUT SCH ×3 (05:46→20:51)
[2017-02-24] MEDS: Aspirin EC Low Dose* 81 MG TAB.EC PO SCH (08:31)
[2017-02-24] MEDS: Clopidogrel TAB* 75 MG PO SCH (08:31)
[2017-02-24] MEDS: Cyanocobalamin TAB* 500 MCG PO SCH (08:31)
[2017-02-24] MEDS: Losartan TAB* 25 MG PO SCH (08:32)
[2017-02-24] MEDS: Diltiazem CD CAP* 120 MG PO SCH (08:32)
[2017-02-24] MEDS: Metoprolol Succinate XL TAB* 25 MG PO SCH ×2 (08:32→20:51)
[2017-02-24] MEDS: Nystatin SUSPENSION* 100000 UNITS/ML 5 ML UDC PO SCH ×4 (08:33→20:51)
[2017-02-24] MEDS: Nitroglycerin 0.2 MG/HR PATCH* (5 MG) TRANSDERM SCH (08:33)
[2017-02-24] MEDS: Montelukast Sodium TAB* 10 MG PO SCH (08:33)
[2017-02-24] MEDS: predniSONE TAB* 50 MG PO SCH (08:33)
[2017-02-24] MEDS: Mometasone/Formoter 200/5 MDI INH SCH ×2 (09:06→20:39)
--- NOTE | 2017-02-24 17:08 | PN ---
Subjective Date of Service: 02/24/17 Interval History: Pt is feeling better. She still feels more SOB than her baseline. She has not noticed much wheezing. She has only been up to the bathroom but she states that is as far as she would walk at home. Family History: Unchanged from Admission Social History: Unchanged from Admission Past Medical History: Unchanged from Admission Objective Active Medications: Albuterol (Ventolin 2.5 Mg/3 Ml Neb.Olamide*) 2.5 mg INH Q2H PRN PRN Reason: SOB/WHEEZING Last Admin: 02/22/17 17:10 Dose: 2.5 mg Albuterol/Ipratropium (Duoneb (Albuterol 2.5 Mg/Ipratropium 0.5 Mg)) 1 neb INH [id number] AWAKE [facility] Last Admin: 02/24/17 14:02 Dose: 1 neb Aspirin (Aspirin Ec Low Dose*) 81 mg PO DAILY [facility] Last Admin: 02/24/17 08:31 Dose: 81 mg Atorvastatin Calcium (Lipitor*) 40 mg PO 2100 [facility] Last Admin: 02/23/17 20:28 Dose: 40 mg Clopidogrel Bisulfate (Plavix Tab*) 75 mg PO DAILY [facility] Last Admin: 02/24/17 08:31 Dose: 75 mg Cyanocobalamin (Vitamin B12 Tab*) 1,000 mcg PO DAILY [facility] Last Admin: 02/24/17 08:31 Dose: 1,000 mcg Diltiazem HCl (Cardizem Cd Cap*) 120 mg PO DAILY [facility] Last Admin: 02/24/17 08:32 Dose: 120 mg Gabapentin (Neurontin Cap(*)) 200 mg PO BEDTIME [facility] Last Admin: 02/23/17 20:28 Dose: 200 mg Heparin Sodium (Porcine) (Heparin Flush Picc/Ml/Cvc(*)) 1 - 3 ml FLUSH 0600, 1800 [facility] PRN Reason: Protocol Last Admin: 02/24/17 16:47 Dose: 1 ml Heparin Sodium (Porcine) (Heparin Vial(*)) 5,000 units SUBCUT Q8HR [facility] Last Admin: 02/24/17 13:54 Dose: 5,000 units Losartan Potassium (Cozaar Tab*) 100 mg PO DAILY [facility] Last Admin: 02/24/17 08:32 Dose: 100 mg Metoprolol Succinate (Toprol Xl Tab*) 25 mg PO BID [facility] Last Admin: 02/24/17 08:32 Dose: 25 mg Mometasone Furoate/Formoterol Fumar (Dulera 200/5 Mdi*) 1 puff INH BID [facility] PRN Reason: Protocol Last Admin: 02/24/17 09:06 Dose: 1 puff Montelukast Sodium (Singulair Tab*) 10 mg PO DAILY [facility] Last Admin: 02/24/17 08:33 Dose: 10 mg Nitroglycerin (Nitroglycerin 5 Mg Patch*) 1 patch TRANSDERM DAILY [facility] Last Admin: 02/24/17 08:33 Dose: 1 patch Nystatin (Nystatin Suspension*) 500,000 units PO QID [facility] Stop: 02/28/17 12:59 Last Admin: 02/24/17 16:47 Dose: 500,000 units Pharmacy Profile Note (Nitro Patch/Oint Remove*) 1 note PATCH OFF 2100 [facility] Last Admin: 02/23/17 20:39 Dose: 1 note Prednisone (Deltasone Tab*) 50 mg PO DAILY [facility] Last Admin: 02/24/17 08:33 Dose: 50 mg Vital Signs 02/23/17 02/23/17 02/23/17 19:48 20:00 20:04 Temperature 98.1 F Pulse Rate 67 85 Respiratory 20 18 22 Rate Blood Pressure 153/46 (mmHg) O2 Sat by Pulse 95 96 Oximetry 02/23/17 02/23/17 02/23/17 20:14 20:28 22:28 Temperature Pulse Rate Respiratory 18 20 Rate Blood Pressure (mmHg) O2 Sat by Pulse 92 Oximetry 02/23/17 02/24/17 02/24/17 23:40 01:11 03:29 Temperature 98.7 F 97.8 F Pulse Rate 63 67 64 Respiratory 18 20 20 Rate Blood Pressure 138/40 153/45 (mmHg) O2 Sat by Pulse 98 99 98 Oximetry 02/24/17 02/24/17 02/24/17 07:29 08:00 08:55 Temperature 98.3 F Pulse Rate 72 70 Respiratory 16 16 14 Rate Blood Pressure 130/48 (mmHg) O2 Sat by Pulse 100 97 Oximetry 02/24/17 02/24/17 02/24/17 11:47 13:55 15:36 Temperature 98.6 F 98.6 F Pulse Rate 64 77 70 Respiratory 16 16 Rate Blood Pressure 150/50 140/49 (mmHg) O2 Sat by Pulse 98 99 96 Oximetry Oxygen Devices in Use Now: Nasal Cannula - 4L-96% Appearance: Elderly female lying in bed, NAD Eyes: No Scleral Icterus Ears/Nose/Mouth/Throat: Mucous Membranes Moist Respiratory: Symmetrical Chest Expansion and Respiratory Effort, Clear to Auscultation - markedly diminished breath sounds in all lung dunlap Cardiovascular: NL Sounds; No Murmurs; No JVD, RRR, No Edema Abdominal: NL Sounds; No Tenderness; No Distention Extremities: No Clubbing, Cyanosis Skin: No Rash or Ulcers, No Nodules or Sclerosis Neurological: Alert and Oriented x 3 Result Diagrams: 02/21/17 05:27 02/23/17 10:45 Additional Lab and Data: Microbiology and Other Data: Assess/Plan/Problems-Billing NSTEMI, acute on chronic hypoxic respiratory failure 2/2 COPD exacerbation, acute on chronic diastolic CHF in a 71 yo F with hx of chronic diastolic CHF, CKD - Patient Problems (1) Acute on chronic respiratory failure with hypoxia Current Visit: Yes Status: Acute Code(s): J96.21 - ACUTE AND CHRONIC RESPIRATORY FAILURE WITH HYPOXIA SNOMED Code(s): 960717166 Comment: The patient still remains more SOB than her baseline. She however is close to being ready for D/C home. She continues on her usual 4L supplemental O2. Continue standing nebs and dulera. Continue prednisone though taper slowly. (2) NSTEMI (non-ST elevated myocardial infarction) Current Visit: Yes Status: Acute Code(s): I21.4 - NON-ST ELEVATION (NSTEMI) MYOCARDIAL INFARCTION SNOMED Code(s): 018153303 Comment: The patient is s/p 48 hours of a heparin gtt. Continue ASA/Plavix/ Statin/Metoprolol. She will not get a [facility] this hospitalization. She should be followed by cardiology as an outpatient however. No c/o chest pain at this time. (3) Acute on chronic diastolic heart failure Current Visit: Yes Status: Acute Code(s): I50.33 - ACUTE ON CHRONIC DIASTOLIC (CONGESTIVE) HEART FAILURE SNOMED Code(s): 367419380 Comment: Earlier this hospitalization there was concern for acute on chronic diastolic CHF. She was diuresed and now is euvolemic. Monitor. (4) Stage III chronic kidney disease Current Visit: Yes Status: Acute Code(s): N18.3 - CHRONIC KIDNEY DISEASE, STAGE 3 (MODERATE) SNOMED Code(s): 624987896 Comment: Creatinine is at baseline. Continue to follow intermittently. (5) DVT prophylaxis Current Visit: Yes Status: Acute Code(s): [id number] - SNOMED Code(s): 901205023 Comment: SQ heparin (6) Full code status Current Visit: Yes Status: Acute Code(s): Z78.9 - OTHER SPECIFIED HEALTH STATUS SNOMED Code(s): 113213193 (7) HLD (hyperlipidemia) Current Visit: No Status: Chronic Code(s): E78.5 - HYPERLIPIDEMIA, UNSPECIFIED SNOMED Code(s): 05044552 Comment: - Continue statin (8) HTN (hypertension) Current Visit: No Status: Chronic Code(s): I10 - ESSENTIAL (PRIMARY) HYPERTENSION SNOMED Code(s): 76302005 Comment: Changed BP meds a bit to try to reduce amount of beta-blockers in the setting of severe COPD. Contiune Cardizem, ARB, lower dose of metoprolol.
[2017-02-24] MEDS: Atorvastatin* 40 MG TAB PO SCH (20:51)
[2017-02-24] MEDS: Gabapentin CAP(*) 100 MG PO SCH (20:51)
[2017-02-24] MEDS: Nitro Patch/OINT Remove PATCH OFF SCH (20:55)
[2017-02-25] MEDS: Albuterol/Ipratropium NEB.SOL* Albuterol 2.5 MG/Ipratropium 0.5 MG 3 ML INH SCH ×6 (01:16→22:50)
[2017-02-25] MEDS: Heparin VIAL(*) 5000 UNITS/ML VIAL (FIVE THOUSAND) SUBCUT SCH ×3 (05:02→21:15)
[2017-02-25 05:25] LABS: Hematocrit 27 % (35-47); Hemoglobin 8.5 g/dl (12.0-16.0); Mean Corpuscular HGB Conc 32 g/dl (31-36); Mean Corpuscular Hemoglobin 29 pg (27-31); Mean Corpuscular Volume 91 fL (80-97); Mean Platelet Volume 10 um3 (7.4-10.4); Red Blood Count 2.94 10^6/ul (4.0-5.4); Red Cell Distribution Width 18 % (10.5-15); White Blood Count 11.2 10^3/ul (3.5-10.8)
[2017-02-25] MEDS: Mometasone/Formoter 200/5 MDI INH SCH ×2 (08:16→20:21)
[2017-02-25] MEDS: Nitroglycerin 0.2 MG/HR PATCH* (5 MG) TRANSDERM SCH (08:24)
[2017-02-25] MEDS: Metoprolol Succinate XL TAB* 25 MG PO SCH ×2 (08:26→21:16)
[2017-02-25] MEDS: Losartan TAB* 25 MG PO SCH (08:26)
[2017-02-25] MEDS: predniSONE TAB* 50 MG PO SCH (08:26)
[2017-02-25] MEDS: Montelukast Sodium TAB* 10 MG PO SCH (08:26)
[2017-02-25] MEDS: Nystatin SUSPENSION* 100000 UNITS/ML 5 ML UDC PO SCH ×4 (08:26→21:16)
[2017-02-25] MEDS: Cyanocobalamin TAB* 500 MCG PO SCH (08:26)
[2017-02-25] MEDS: Diltiazem CD CAP* 120 MG PO SCH (08:26)
[2017-02-25] MEDS: Aspirin EC Low Dose* 81 MG TAB.EC PO SCH (08:26)
[2017-02-25] MEDS: Clopidogrel TAB* 75 MG PO SCH (08:26)
--- NOTE | 2017-02-25 16:28 | PN ---
Subjective Date of Service: 02/25/17 Interval History: Patient seen and examined at bedside. Patient has refused to get up out of bed with PT. She states she plans on walking to the bathroom later this evening. She says at home she would be sitting at her kitchen table but she has not had a meal sitting up in the chair. She states she has not getting enough breathing treatments. Family History: Unchanged from Admission Social History: Unchanged from Admission Past Medical History: Unchanged from Admission Objective Active Medications: Albuterol (Ventolin 2.5 Mg/3 Ml Neb.Olamide*) 2.5 mg INH Q2H PRN Albuterol/Ipratropium (Duoneb (Albuterol 2.5 Mg/Ipratropium 0.5 Mg)) 1 neb INH [id number] AWAKE [facility] Aspirin (Aspirin Ec Low Dose*) 81 mg PO DAILY [facility] Atorvastatin Calcium (Lipitor*) 40 mg PO 2100 [facility] Clopidogrel Bisulfate (Plavix Tab*) 75 mg PO DAILY [facility] Cyanocobalamin (Vitamin B12 Tab*) 1,000 mcg PO DAILY [facility] Diltiazem HCl (Cardizem Cd Cap*) 120 mg PO DAILY [facility] Gabapentin (Neurontin Cap(*)) 200 mg PO BEDTIME [facility] Heparin Sodium (Porcine) (Heparin Flush Picc/Ml/Cvc(*)) 1 - 3 ml FLUSH 0600, 1800 [facility] Heparin Sodium (Porcine) (Heparin Vial(*)) 5,000 units SUBCUT Q8HR [facility] Losartan Potassium (Cozaar Tab*) 100 mg PO DAILY [facility] Metoprolol Succinate (Toprol Xl Tab*) 25 mg PO BID [facility] Mometasone Furoate/Formoterol Fumar (Dulera 200/5 Mdi*) 1 puff INH BID [facility] Montelukast Sodium (Singulair Tab*) 10 mg PO DAILY [facility] Nitroglycerin (Nitroglycerin 5 Mg Patch*) 1 patch TRANSDERM DAILY [facility] Nystatin (Nystatin Suspension*) 500,000 units PO QID [facility] Pharmacy Profile Note (Nitro Patch/Oint Remove*) 1 note PATCH OFF 2100 [facility] Prednisone (Deltasone Tab*) 50 mg PO DAILY [facility] 02/25/17 02/25/17 02/25/17 11:33 12:46 15:46 Temperature 98.9 F 98.4 F Pulse Rate 62 67 73 Respiratory 24 20 24 Rate Blood Pressure 141/44 175/54 (mmHg) O2 Sat by Pulse 99 95 96 Oximetry Oxygen Devices in Use Now: Nasal Cannula - 4L-96% Appearance: laying in bed, NAD Eyes: No Scleral Icterus, PERRLA Ears/Nose/Mouth/Throat: NL Teeth, Lips, Gums Neck: NL Appearance and Movements; NL JVP Respiratory: Symmetrical Chest Expansion and Respiratory Effort, - - poor air movement bilaterally Cardiovascular: NL Sounds; No Murmurs; No JVD Abdominal: NL Sounds; No Tenderness; No Distention Extremities: No Edema Skin: No Rash or Ulcers Neurological: Alert and Oriented x 3, NL Muscle Strength and Tone Lines/Tubes/Other Access: Clean, Dry and Intact Peripheral IV Nutrition: Taking PO's Result Diagrams: 02/25/17 05:00 02/23/17 10:45 Additional Lab and Data: Microbiology and Other Data: Assess/Plan/Problems-Billing NSTEMI, acute on chronic hypoxic respiratory failure 2/2 COPD exacerbation, acute on chronic diastolic CHF in a 71 yo F with hx of chronic diastolic CHF, CKD - Patient Problems (1) Acute on chronic respiratory failure with hypoxia Comment: The patient still remains more SOB than her baseline. She continues on her usual 4L supplemental O2. She has a productive cough. Continue standing nebs and dulera. Continue prednisone though taper slowly. Will need to mobilize to see how she maintains her saturations while moving about. (2) NSTEMI (non-ST elevated myocardial infarction) Comment: The patient is s/p 48 hours of a heparin gtt. Continue ASA/Plavix/ Statin/Metoprolol. She will not get a [facility] this hospitalization. She should be followed by cardiology as an outpatient however. No c/o chest pain at this time. (3) Acute on chronic diastolic heart failure Comment: Earlier this hospitalization there was concern for acute on chronic diastolic CHF. She was diuresed and now is euvolemic. Monitor. (4) Stage III chronic kidney disease Comment: Creatinine is at baseline. Continue to follow intermittently. (5) HLD (hyperlipidemia) Comment: Continue statin (6) HTN (hypertension) Comment: Changed BP meds a bit to try to reduce amount of beta-blockers in the setting of severe COPD. Contiune Cardizem, ARB, lower dose of metoprolol. (7) DVT prophylaxis Comment: SQ heparin (8) Full code status Status and Disposition: May need [facility].
[2017-02-25] MEDS: Gabapentin CAP(*) 100 MG PO SCH (21:15)
[2017-02-25] MEDS: Atorvastatin* 40 MG TAB PO SCH (21:16)
[2017-02-25] MEDS: Nitro Patch/OINT Remove PATCH OFF SCH (21:18)
[2017-02-26] MEDS: Albuterol/Ipratropium NEB.SOL* Albuterol 2.5 MG/Ipratropium 0.5 MG 3 ML INH SCH ×4 (03:16→13:57)
[2017-02-26] MEDS: Heparin VIAL(*) 5000 UNITS/ML VIAL (FIVE THOUSAND) SUBCUT SCH ×2 (05:28→14:26)
[2017-02-26] MEDS: Mometasone/Formoter 200/5 MDI INH SCH (07:23)
[2017-02-26] MEDS: Nystatin SUSPENSION* 100000 UNITS/ML 5 ML UDC PO SCH ×3 (08:07→17:36)
[2017-02-26] MEDS: Losartan TAB* 25 MG PO SCH (08:07)
[2017-02-26] MEDS: Diltiazem CD CAP* 120 MG PO SCH (08:08)
[2017-02-26] MEDS: Metoprolol Succinate XL TAB* 25 MG PO SCH (08:09)
[2017-02-26] MEDS: Clopidogrel TAB* 75 MG PO SCH (08:09)
[2017-02-26] MEDS: Aspirin EC Low Dose* 81 MG TAB.EC PO SCH (08:09)
[2017-02-26] MEDS: Cyanocobalamin TAB* 500 MCG PO SCH (08:09)
[2017-02-26] MEDS: Montelukast Sodium TAB* 10 MG PO SCH (08:09)
[2017-02-26] MEDS: predniSONE TAB* 50 MG PO SCH (08:09)
[2017-02-26] MEDS: Nitroglycerin 0.2 MG/HR PATCH* (5 MG) TRANSDERM SCH (08:10)
--- NOTE | 2017-02-26 15:21 | PN ---
Subjective Date of Service: 02/26/17 Interval History: Patient seen and examined at bedside. Patient ambulated last night to bathroom with just stand-by assistance. She states her breathing is much better than when she came in. Family History: Unchanged from Admission Social History: Unchanged from Admission Past Medical History: Unchanged from Admission Objective Active Medications: Albuterol (Ventolin 2.5 Mg/3 Ml Neb.Olamide*) 2.5 mg INH Q2H PRN Albuterol/Ipratropium (Duoneb (Albuterol 2.5 Mg/Ipratropium 0.5 Mg)) 1 neb INH [id number] AWAKE [facility] Aspirin (Aspirin Ec Low Dose*) 81 mg PO DAILY [facility] Atorvastatin Calcium (Lipitor*) 40 mg PO 2100 [facility] Clopidogrel Bisulfate (Plavix Tab*) 75 mg PO DAILY [facility] Cyanocobalamin (Vitamin B12 Tab*) 1,000 mcg PO DAILY [facility] Diltiazem HCl (Cardizem Cd Cap*) 120 mg PO DAILY [facility] Gabapentin (Neurontin Cap(*)) 200 mg PO BEDTIME [facility] Heparin Sodium (Porcine) (Heparin Flush Picc/Ml/Cvc(*)) 1 - 3 ml FLUSH 0600, 1800 [facility] Heparin Sodium (Porcine) (Heparin Vial(*)) 5,000 units SUBCUT Q8HR [facility] Losartan Potassium (Cozaar Tab*) 100 mg PO DAILY [facility] Metoprolol Succinate (Toprol Xl Tab*) 25 mg PO BID [facility] Mometasone Furoate/Formoterol Fumar (Dulera 200/5 Mdi*) 1 puff INH BID [facility] Montelukast Sodium (Singulair Tab*) 10 mg PO DAILY [facility] Nitroglycerin (Nitroglycerin 5 Mg Patch*) 1 patch TRANSDERM DAILY [facility] Nystatin (Nystatin Suspension*) 500,000 units PO QID [facility] Pharmacy Profile Note (Nitro Patch/Oint Remove*) 1 note PATCH OFF 2100 [facility] Prednisone (Deltasone Tab*) 50 mg PO DAILY [facility] Vital Signs 02/25/17 02/25/17 02/25/17 15:46 16:03 16:07 Temperature 98.4 F Pulse Rate 73 72 Respiratory 24 18 Rate Blood Pressure 175/54 150/62 (mmHg) O2 Sat by Pulse 96 99 Oximetry 02/25/17 02/25/17 02/25/17 19:28 20:22 21:15 Temperature 98.3 F Pulse Rate 57 64 Respiratory 22 20 22 Rate Blood Pressure 155/37 (mmHg) O2 Sat by Pulse 98 99 Oximetry 02/25/17 02/25/17 02/25/17 22:48 23:15 23:38 Temperature 98.3 F Pulse Rate 67 65 Respiratory 20 20 16 Rate Blood Pressure 138/42 (mmHg) O2 Sat by Pulse 100 100 Oximetry 02/26/17 02/26/17 02/26/17 03:16 04:17 07:20 Temperature 98.4 F Pulse Rate 62 63 68 Respiratory 20 16 16 Rate Blood Pressure 134/38 (mmHg) O2 Sat by Pulse 98 99 97 Oximetry 02/26/17 02/26/17 02/26/17 07:48 08:15 11:25 Temperature 98.5 F Pulse Rate 65 68 Respiratory 24 20 Rate Blood Pressure 147/45 (mmHg) O2 Sat by Pulse 100 Oximetry 02/26/17 11:55 Temperature 98.7 F Pulse Rate 65 Respiratory 20 Rate Blood Pressure 156/58 (mmHg) O2 Sat by Pulse 96 Oximetry Oxygen Devices in Use Now: Nasal Cannula - 4L-96% Appearance: sitting up in bed, NAD Eyes: No Scleral Icterus, PERRLA Ears/Nose/Mouth/Throat: NL Teeth, Lips, Gums Neck: NL Appearance and Movements; NL JVP Respiratory: Symmetrical Chest Expansion and Respiratory Effort, - - no wheezing ; decreased at bases Cardiovascular: NL Sounds; No Murmurs; No JVD Abdominal: NL Sounds; No Tenderness; No Distention Extremities: No Edema Skin: No Rash or Ulcers Neurological: Alert and Oriented x 3, NL Muscle Strength and Tone Lines/Tubes/Other Access: Clean, Dry and Intact Peripheral IV Nutrition: Taking PO's Result Diagrams: 02/25/17 05:00 02/23/17 10:45 Additional Lab and Data: Microbiology and Other Data: Assess/Plan/Problems-Billing NSTEMI, acute on chronic hypoxic respiratory failure 2/2 COPD exacerbation, acute on chronic diastolic CHF in a 71 yo F with hx of chronic diastolic CHF, CKD - Patient Problems (1) Acute on chronic respiratory failure with hypoxia Comment: The patient is fairly close to baseline. She continues on her usual 4L supplemental O2. She has a productive cough. Continue standing nebs and dulera ( symbicort at home). Continue prednisone though taper slowly. She was able to maintain her saturations while walking to the bathroom. (2) NSTEMI (non-ST elevated myocardial infarction) (3) Acute on chronic diastolic heart failure (4) Stage III chronic kidney disease (5) HLD (hyperlipidemia) (6) HTN (hypertension) (7) DVT prophylaxis (8) Full code status Status and Disposition: Stable to be discharged home with close PCP and cardiology follow-up.
[2017-02-26 15:37] VITALS: BP 132/42
--- NOTE | 2017-02-27 03:02 | DS ---
CC: Huber Campos MD* DISCHARGE SUMMARY: DATE OF ADMISSION: 02/16/17 DATE OF DISCHARGE: 02/26/17 PRIMARY CARE PHYSICIAN: Prosper Holbrook MD DIRECTOR OF ARCHIVES: Huber Campos MD ATTENDING PHYSICIAN: Brenda López MD* (report dictated by Clarissa Lopez NP ) PRIMARY DIAGNOSES: 1. Acute on chronic hypoxic respiratory failure. 2. Non-ST elevation myocardial infarction. 3. Diastolic heart failure. SECONDARY DIAGNOSES: 1. Chronic kidney disease. 2. History of a cerebrovascular accident. 3. Obstructive sleep apnea. STUDIES WHILE IN THE HOSPITAL: 1. Chest x-ray, 02/16/17, right middle lobe pneumonia. The heart, pulmonary, vascular mediastinal contours were unremarkable. 2. Transthoracic echocardiogram 02/17/17. Left ventricle appears hyperdynamic , estimated ejection fraction greater than 65%. Abnormal left ventricular diastolic function observed. The right ventricular global systolic function is normal. There is no evidence of aortic stenosis. There is trace mitral regurgitation. There is trace tricuspid regurgitation. There is no significant pericardial effusion. MEDICATIONS AT THE TIME OF DISCHARGE: New medications: 1. Cardizem 120 mg oral daily. 2. Toprol-XL 25 mg oral twice daily. 3. Nitro patch 1 patch transdermal daily. 4. Nystatin 500,000 units oral 4 times daily for thrush. 5. Lipitor 20mg oral daily Following medications have been changed: 1. Albuterol ipratropium nebs every 4 hours standing. 2. Norvasc has been discontinued. 3. Lovastatin has been discontinued Following medications are medications that the patient came in on: 1. Spiriva 1 cap inhaled daily. 2. Ferrex 150 mg oral daily. 3. Singulair 10 mg oral daily. 4. Vitamin B12 1000 mcg oral daily. 5. Plavix 75 mg oral daily. 6. Albuterol HFA 2 puffs inhaled every 4 hours as needed. 7. Avapro 300 mg oral daily. 8. Prednisone 4 tablets for 4 days, 3 tablets for 5 days, 2 tablets for 5 days , 1 tablet for 5 days and stop. HISTORY OF PRESENT ILLNESS AND HOSPITAL COURSE: Ms. Lambert is a 71-year-old female with a history of COPD, on 4.5 L at baseline. She was discharged from the hospital on 02/14/17 and re-presented to the hospital 2 days later with worsening shortness of breath. The patient was too short of breath to ambulate inside of her trailer. In the emergency room, the patient was found to have a positive troponin at 6.65 accompanied by EKG changes. She was admitted to the telemetry floor for further management. In regards to her non ST elevation [place], she was placed on a heparin drip in addition to continuing on Plavix as well as beta georgette and statin. Cardiology was consulted. Please refer to Dr. Campos's consultation for details. Initially, the plan was to take the patient for a left heart cath, yet due to her chronic kidney disease and comorbidities, the plan was modified to aggressive medical management with consideration for a cath as an outpatient if her respiratory status can stabilize. The patient will have a followup cardiology appointment with Dr. Campos in the next 2 weeks. She had an echocardiogram that showed hyperdynamic left ventricle with a normal ejection fraction. She does have some diastolic dysfunction and was given gentle diuresis with Lasix, which improved her overall respiratory status. Multiple adjustments were made to her blood pressure medications. Her beta georgette was decreased given her severe COPD and Cardizem was added with the hope that it will also be anti anginal. Nitro patch was added. She will continue on Plavix and go back on her home statin at discharge. Norvasc was discontinued with the replacement of Cardizem. Her primary reason for admission was acute on chronic respiratory failure. She required 6 L on admission and was restarted on IV Solu-Medrol and aggressive nebulizers. As she did complete a course of Zithromax and ceftriaxone, and at the point of admission, she did not clinically have a pneumonia, hence was not treated with any further antibiotics. She was kept on IV Solu-Medrol for multiple days and gradually transitioned to oral prednisone. Currently, she is receiving mg of prednisone. She will have a very long taper of 10 mg over the next 2 weeks. She was given azithromycin and consideration may be made as outpatient to keep her on this terminal gauger given her frequent exacerbations. She was diuresed to euvolemia and [id number] nebulizers were continued. In addition, she was placed on Dulera. She was transitioned back to her home COPD regimen with standing nebulizers. The patient presented with elevated creatinine of 1.6, this trended down and on 02/23, the last time her creatinine was checked, her creatinine was 1.2. She had no further diuresis. On 02/26/17 , she was able to ambulate on her baseline oxygen without significant desaturation less than 90. At this point, she was stable for discharge. Vitals were as follows: Temperature 98.4, heart rate 76, respiratory rate 20, blood pressure 132/42, oxygen saturation 97%. At this point, she is stable for discharge. DISCHARGE PLAN: The patient was discharged on a heart-healthy diet with activity as tolerated. The patient should wear her oxygen at all times. The patient has a followup appointment with Dr. Holbrook on 03/10/17 at 3 p.m. She also has an appointment to see Dr. Campos on 03/07/17 at 3:45 p.m. The patient should return to the hospital if she experiences any worsening shortness of breath, severe chest pain, or high fevers. I reviewed all these instructions with the patient and daughter, they are agreeable with the discharge today. This is a summarized report of a complex medical history and hospital stay. For details, please see the entire medical record. TIME SPENT: Time of discharge was 60 minutes and 35 minutes was spent with the patient and her daughter discussing medications and followup instructions. CONDITION ON DISCHARGE: Stable. CLARISSA LOPEZ NP [id number]/[facility] #: [id number] [place]
== END 2017-02-26 17:43 | disposition home health service (06) | DRG 280 ==
LOC: ED 13:48 → MEDTELE 16:52 → ICU 20:31 → MEDTELE 02-18 14:38
PROVIDERS: ADMIT Internal Medicine; ATTEND Internal Medicine
PROC: 30233N1 Transfusion of Nonautologous Red Blood Cells into Peripheral Vein, Percutaneous Approach (ICD-10-PCS; principal; 2017-02-18)
DX: I21.4 Non-ST elevation (NSTEMI) myocardial infarction (principal); J96.21 Acute and chronic respiratory failure with hypoxia; I50.33 Acute on chronic diastolic (congestive) heart failure; I13.0 Hypertensive heart and chronic kidney disease with heart failure and stage 1 through stage 4 chronic kidney disease, or unspecified chronic kidney disease; J44.1 Chronic obstructive pulmonary disease with (acute) exacerbation; I47.1 Supraventricular tachycardia; E78.5 Hyperlipidemia, unspecified; R91.1 Solitary pulmonary nodule; D64.9 Anemia, unspecified; N18.3 Chronic kidney disease, stage 3 (moderate); I73.9 Peripheral vascular disease, unspecified; E66.9 Obesity, unspecified; G47.33 Obstructive sleep apnea (adult) (pediatric); M47.9 Spondylosis, unspecified; I08.1 Rheumatic disorders of both mitral and tricuspid valves; Z79.02 Long term (current) use of antithrombotics/antiplatelets; Z85.41 Personal history of malignant neoplasm of cervix uteri; Z90.710 Acquired absence of both cervix and uterus; Z95.5 Presence of coronary angioplasty implant and graft; Z86.73 Personal history of transient ischemic attack (TIA), and cerebral infarction without residual deficits; Z68.29 Body mass index [BMI] 29.0-29.9, adult; Z99.81 Dependence on supplemental oxygen; Z87.891 Personal history of nicotine dependence; Z82.49 Family history of ischemic heart disease and other diseases of the circulatory system; Z82.5 Family history of asthma and other chronic lower respiratory diseases
CPT/HCPCS: 36415; 71010; 80048; 80053; 80061; 80076; 81003; 81015; 82550; 82553; 82728; 83540; 83605; 83615; 83690; 83735; 83880; 84443; 84484; 84520; 85014; 85018; 85025; 85027; 85060; 85379; 85610; 85730; 86140; 86850; 86900; 86901; 86922; 87040; 87070; 87205; 87641; 93005; 93306; 94640; 94760; 99406; A9270-GY; J1644; J1940; J2920; J2930; J7512; J7644; P9040

== ENCOUNTER 2017-03-07 10:02 | Inpatient (IN) | payer MEDICARE ==
[2017-03-07 10:18] LABS: EPAP 6; FIO2 100; IPAP 16; Resp Rate 6
[2017-03-07] MEDS ORDERED: methylPREDNISolone 125 MG* 2 ML VIAL IV ONE (10:18)
[2017-03-07] MEDS ORDERED: Albuterol/Ipratropium NEB.SOL* Albuterol 2.5 MG/Ipratropium 0.5 MG 3 ML INH ONE (10:19)
[2017-03-07 10:34] LABS: PCO2 Arterial 84 mmHg (35-45)
[2017-03-07 10:44] LABS: Albumin 3.1 g/dL (3.2-5.2); BUN/Creatinine Ratio 11.8 (8-20); EGFR African American 31.1 (>60); EGFR Non-African American 24.2 (>60); Globulin 2.9 g/dL (2-4); Potassium 4.7 mmol/L (3.5-5.0); Total Bilirubin 0.5 mg/dL (0.2-1.0)
[2017-03-07] MEDS ORDERED: Cefepime(*) 1 GM in NS 0.9% 50 ML* 50 ML IVPB ONE (10:48)
[2017-03-07] MEDS ORDERED: Levofloxacin 500 MG IVPREMIX(* 500 MG/100 ML BAG IVPB ONE (10:49)
[2017-03-07] MEDS ORDERED: NS 0.9% 50 ML* 50 ML ONE (10:52)
[2017-03-07 10:54] LABS: Troponin I 0.08 ng/mL (<0.04)
--- NOTE | 2017-03-07 10:58 | RAD ---
HISTORY: Shortness of breath COMPARISONS: February 16, 2017 VIEWS: 1: frontal portable view of the chest at 10:20 AM FINDINGS: LINES AND TUBES: None. CARDIOMEDIASTINAL SILHOUETTE: The cardiomediastinal silhouette is normal for portable technique. PLEURA: The costophrenic angles are sharp. No pleural abnormalities are noted. LUNG PARENCHYMA: There is a diffuse reticular pattern with indistinct pulmonary vessels. There is patchy alveolar opacification of the left midlung and right lung base ABDOMEN: The upper abdomen is clear. There is no subphrenic gas. BONES AND SOFT TISSUES: No bone or soft tissue abnormalities are noted. IMPRESSION: PULMONARY INTERSTITIAL EDEMA WITH PATCHY AIRSPACE DISEASE OF THE LEFT MIDLUNG AND RIGHT LOWER LUNG
[2017-03-07] MEDS ORDERED: Vancomycin(*) 1,250 MG IV x ONCE IVPB ONE ×2 (11:00)
[2017-03-07] MEDS ORDERED: Vancomycin(*) 1,000 MG VIAL IVPB SCH (11:00)
[2017-03-07 11:06] LABS: EPAP 6; FIO2 60; IPAP 16; Resp Rate 16
[2017-03-07 11:12] LABS: PCO2 Arterial 79 mmHg (35-45)
--- NOTE | 2017-03-07 11:15 | ED ---
Nicolas You Angela, scribed for Justin Padron MD on 03/07/17 at 1010 . Respiratory - HPI Summary HPI Summary: This pt is a 71 y/o female [place]IB[place] from home [place] [facility] [place]. Pt presents with a CPAP. Per EMS, pt was found on her couch by her family and they called the ambulance. Pt was found frothing from mouth. Per EMS, pt was just getting over pneumonia. Per daughter, pt was fine yesterday when pt's son visited her. Pt is currently on Plavix. PMHx: COPD, CHF, HTN. HPI is limited due to level 5 caveat - respiratory distress. - History of Current Complaint Stated Complaint: RESP DISTRESS Hx Obtained From: Family/Venue Attendant - daughter, EMS Hx From Patient Unobtainable Due To: Other - Level 5 caveat - respiratory distress Onset/Duration: Lasting Hours - Allergy/Home Medications Allergies/Adverse Reactions: Allergies Allergy/AdvReac Type Severity Reaction Status Date / Time No Known Allergies Allergy Verified 12/09/16 21:59 PMH/Surg Hx/FS Hx/Imm Hx Endocrine/Hematology History: Denies: Hx Diabetes Cardiovascular History: Reports: Hx Hypercholesterolemia, Hx Hypertension Denies: Hx Angina, Hx Coronary Artery Disease, Hx Myocardial Infarction, Hx Pacemaker/ICD, Hx Valvular Heart Disease Respiratory History: Reports: Hx Chronic Obstructive Pulmonary Disease (COPD), Other Respiratory Problems/Disorders Denies: Hx Asthma History: Reports: Other Problems/Disorders - chronic renal insufficiency Musculoskeletal History: Reports: Hx Arthritis - LOWER BACK Sensory History: Reports: Hx Contacts or Glasses - reading Denies: Hx Hearing Aid Opthamlomology History: Reports: Hx Contacts or Glasses - reading Psychiatric History: Denies: Hx Panic Disorder - Cancer History Cancer Type, Location and Year: Cervical 2016, hysterectomy performed, was curative Hx Chemotherapy: No Hx Radiation Therapy: No - Surgical History Surgery Procedure, Year, and Place: CAROTID ARTERY STENT 2009 AT [facility]; [place] [facility] [place] Anesthesia Reactions: No - Immunization History Date of Tetanus Vaccine: unknown Date of Influenza Vaccine: 2016 Infectious Disease History: Denies: Traveled Outside the [place] in Last 30 Days - Family History Known Family History: Positive: Other - POS: [place], throat - Social History Alcohol Use: None Substance Use Type: Reports: None Hx Tobacco Use: Yes Smoking Status (MU): Former Smoker Type: Cigarettes Amount Used/How Often: 1 PPD Length of Time of Smoking/Using Tobacco: 40 YRS. Have You Smoked in the Last Year: Yes Review of Systems Negative: Fever, Chills Positive: Shortness Of Breath All Other Systems Reviewed And Are Negative: No - Comments Additional Review of Systems Comments: ROS limited due to level 5 caveat - respiratory distress Physical Exam Vital Signs On Initial Exam: Initial Vitals Temp Pulse Resp BP Pulse Ox 98.2 F 87 32 104/44 98 03/07/17 10:09 03/07/17 10:09 03/07/17 10:09 03/07/17 10:09 03/07/17 10:09 Diagnostics - Vital Signs Vital Signs Temp Pulse Resp BP Pulse Ox 03/07/17 10:53 85 28 100 03/07/17 10:44 85 28 100 03/07/17 10:32 88 35 120/66 99 03/07/17 10:13 85 33 98 03/07/17 10:12 104/44 03/07/17 10:09 98.2 F 87 32 104/44 98 - Laboratory Lab Results: Lab Results 03/07/17 03/07/17 03/07/17 Range/Units 10:10 10:10 10:10 Patient Temperature Not Reportable ABG pH 7.22 L (7.35-7.45) ABG pH (Temp Correct) Not Reportable ABG pCO2 84 H* (35-45) mmHg ABG pCO2 (Temp Corrct Not Reportable ABG pO2 142 H (80-100) mmHg ABG pO2 (Temp Correct Not Reportable ABG HCO3 29.0 (19-31) mmol/L ABG O2 Saturation 99.0 H (95-98) % ABG Base Excess 5.2 H (-2.0-2.0) Respiration Rate 6 O2 Delivery Device bipap Ventilator Type Not Reportable Vent Mode Not Reportable FiO2 100 Inspiratory Time Not Reportable PEEP Not Reportable Pressure Support Not Reportable Pressure Control Not Reportable EPAP 6 IPAP 16 BiPAP Not Reportable Sodium 141 (133-145) mmol/L Potassium 4.7 (3.5-5.0) mmol/L Chloride 101 (101-111) mmol/L Carbon Dioxide 35 H (22-32) mmol/L Anion Gap 5 (2-11) mmol/L BUN 24 (6-24) mg/dL Creatinine 2.03 H (0.51-0.95) mg/dL Est GFR ( Amer) 31.1 (>60) Est GFR (Non-Af Amer) 24.2 (>60) BUN/Creatinine Ratio 11.8 (8-20) Glucose 125 H (70-100) mg/dL Lactic Acid (0.5-2.0) mmol/L Calcium 9.0 (8.6-10.3) mg/dL Total Bilirubin 0.50 (0.2-1.0) mg/dL AST 53 H (13-39) U/L ALT 71 H (7-52) U/L Alkaline Phosphatase 119 H (34-104) U/L Troponin I 0.08 H* (<0.04) ng/mL B-Natriuretic Peptide 755 H ( - 100) pg/mL Total Protein 6.0 L (6.4-8.9) g/dL Albumin 3.1 L (3.2-5.2) g/dL Globulin 2.9 (2-4) g/dL Albumin/Globulin Ratio 1.1 (1-3) 03/07/17 Range/Units 10:10 Patient Temperature ABG pH (7.35-7.45) ABG pH (Temp Correct) ABG pCO2 (35-45) mmHg ABG pCO2 (Temp Corrct ABG pO2 (80-100) mmHg ABG pO2 (Temp Correct ABG HCO3 (19-31) mmol/L ABG O2 Saturation (95-98) % ABG Base Excess (-2.0-2.0) Respiration Rate O2 Delivery Device Ventilator Type Vent Mode FiO2 Inspiratory Time PEEP Pressure Support Pressure Control EPAP IPAP BiPAP Sodium (133-145) mmol/L Potassium (3.5-5.0) mmol/L Chloride (101-111) mmol/L Carbon Dioxide (22-32) mmol/L Anion Gap (2-11) mmol/L BUN (6-24) mg/dL Creatinine (0.51-0.95) mg/dL Est GFR ( Amer) (>60) Est GFR (Non-Af Amer) (>60) BUN/Creatinine Ratio (8-20) Glucose (70-100) mg/dL Lactic Acid 1.0 (0.5-2.0) mmol/L Calcium (8.6-10.3) mg/dL Total Bilirubin (0.2-1.0) mg/dL AST (13-39) U/L ALT (7-52) U/L Alkaline Phosphatase (34-104) U/L Troponin I (<0.04) ng/mL B-Natriuretic Peptide ( - 100) pg/mL Total Protein (6.4-8.9) g/dL Albumin (3.2-5.2) g/dL Globulin (2-4) g/dL Albumin/Globulin Ratio (1-3) Result Diagrams: 03/07/17 10:10 Lab Statement: Any lab studies that have been ordered have been reviewed, and results considered in the medical decision making process. - EKG 1018 Cardiac Rate: NL - 84 bpm EKG Rhythm: Sinus Rhythm EKG Interpretation: Borderline ST depression, lateral leads. No STEMI Re-Evaluation - Re-Evaluation First Eval Re-Evaluation Time: 11:14 Change: Improved Comment: PCO2 is with improved CO2 and she appear more comfortable with respirations. Disposition - Course Course Of Treatment: 71 yr old with probable hospital acquired pneumonia on chest xray, chf, and copd exacerabtion. DW Dr Kc and will admit to ICU - Diagnoses Provider Diagnoses: Hospital-acquired pneumonia, Respiratory failure - Physician Notifications Discussed Care Of Patient With: Richard Kc Time Discussed With Above Provider: 10:58 Instructed by Provider To: Other - I discussed the pt's case with Dr. Kc, from ICU. - Critical Care Time Critical Care Time: 30-74 min Discharge - Discharge Plan Condition: Fair Disposition: ADMITTED TO [facility] Referrals: Prosper Holbrook MD [Primary Care Provider] - The documentation as recorded by the Nicolas brower Angela accurately reflects the service I personally performed and the decisions made by me, Justin Padron MD.
[2017-03-07 12:37] LABS: Hematocrit 24 % (35-47); Hemoglobin 7.9 g/dl (12.0-16.0); Mean Corpuscular HGB Conc 32 g/dl (31-36); Mean Corpuscular Hemoglobin 30 pg (27-31); Mean Corpuscular Volume 93 fL (80-97); Mean Platelet Volume 8 um3 (7.4-10.4); Red Blood Count 2.61 10^6/ul (4.0-5.4); Red Cell Distribution Width 18 % (10.5-15); White Blood Count 4.5 10^3/ul (3.5-10.8)
--- NOTE | 2017-03-07 14:29 | HP ---
H&P (Free Text) History and Physical: CRITICAL CARE MEDICINE DATE: 03/07/17 TIME: 1145 REFERRING PROVIDER: Kelley REASON/CHIEF COMPLAINT: sob, bipap HISTORY OF PRESENT ILLNESS: 71 F with chronic resp failure, 4L home O2, copd, diastolic hf, multiple recent admissions and treatment for pna and resp failure. Has VN at home and seen by son as doing ok yesterday. Today found on her couch with frothy sputum and poor responsiveness biba on cpap and bipap in ED. Improved with tx. treated under sepsis protocol. abg with hypercarbic failure. icu admitting. REVIEW OF SYSTEMS: As per HPI. limited sec to acuity PAST MEDICAL HISTORY: As per HPI; reviewed per notes, limited from pt due to acuity. MEDICATIONS: Reviewed per JUL, unconfirmed. ALLERGIES: NKDA SOCIAL HISTORY: Reviewed. +tob. daughter proxy FAMILY HISTORY: Noncontributory at present. PHYSICAL EXAM: Vital Signs: Reviewed. afeb, HR 70s-80s, SBP 110-150. rr 30s on bipap with O2 dec and sats up. Neurologic: awakens, some communication. arousing post hypercarbia. ferguson HEENT: anicteric. cushnoid appearing. thick neck and clinically morphology for alfredo Cardiovascular: distant s1 s2 Respiratory: dec bs bl with bl rales Abdomen: obese, soft, nt Extremities: ext chronic changes. no overt edema Access: piv LABS: Reviewed. IMAGING: Reviewed. MEDICATIONS: Reviewed. ASSESSMENT: 71 F Acute on chronic hypercarbic and hypoxic respiratory failure Mod encephalopathy sec to hypercarbia on admission MARCELO on chronic CKD stage 3 Mild inc LFts, ?hepatosteaotosis vs congestive hepatopathy from lung disease Mild demand elevated troponin Anemia of chronic disease and CKD PLAN: Neurologic: improving post bipap. give mentation more time. Cardiovascular: perfusing but lack of cardiac compensation. question how much is negative pressure pulm edema vs diastolic failure, whcih both seem more likely then a new acute bacterial pna. total body vol status is actually not that bad, just poor compartmentalization. bipap should allieviate high afterload from her diastolic failure and also in the meantime quell if elevated preload. hopefully her renal function can allow equilibration but may need to maintain at higher cr in order to maintain better lung water. hold off on ivf if able. Diuretics soon post resp equilibration. Respiratory: most of this entity seems likely with her acute on chronic lung scaring and dependent regions to water sequestration. Her lack of compliance to nocturnal regimens of ppv, leading to increased cardiac strain and diastolic failure ensuing with further R heart decompensation, inc hormonal response and adh to hold onto water is a vicious cycle in which she fails to adhere to nocturnal ppv in which to best benefit her needs. advised her acutely she needs bipap for a few hours and then off later and resume nocturnally. she consents to wearing for a few hours now but is already declining nocturnal. needs to help her self. resume outpt copd regimen and can f/u with Dr. Funk. Gastrointestinal: po as able Renal/Metabolic: f/u renal function. Infectious Disease: recieved abx, but no fever, wbc. bc drawn. nothing pointing to new infection. not going to continue abx at this time. need to f/u cx however. Hematology: stable, chronic. hsq Endocrine: steroid for copd exac. Musculoskeletal: oob. avoid deconditioning. Psych/Social: fmaily and pt updated. pt indicates she really wouldn't want intubation but still not committing to dnr/dni status. revisit. Supportive and preventative care as ordered. Vaccine: f/u needs SUP: po VTE prophylaxis: heparin Disposition: ICU Code Status: Full Critical Care Time: 45min Jarrett Kc DO
[2017-03-07] MEDS ORDERED: Acetaminophen TAB* 325 MG PO PRN (14:53)
[2017-03-07] MEDS ORDERED: Morphine INJ* 2 MG/ML 1 ML SYRINGE (TWO MG - NEW SYRINGE VERSION) IV PRN (14:53)
[2017-03-07] MEDS ORDERED: Ondansetron INJ* 2 MG/ML VIAL IV PRN (14:54)
[2017-03-07] MEDS ORDERED: Senna TAB PO PRN (14:54)
[2017-03-07] MEDS ORDERED: Furosemide IV* 10 MG/ML VIAL (40 MG) IV SLOW PU ONE (15:00)
[2017-03-07] MEDS ORDERED: Albuterol/Ipratropium NEB.SOL* Albuterol 2.5 MG/Ipratropium 0.5 MG 3 ML INH SCH (15:00)
[2017-03-07] MEDS: predniSONE TAB* 20 MG PO SCH (15:22)
[2017-03-07 16:09] LABS: Troponin I 0.08 ng/mL (<0.04)
[2017-03-07 16:21] LABS: Albumin 2.7 g/dL (3.2-5.2); BUN/Creatinine Ratio 13.5 (8-20); Calcium 8.3 mg/dL (8.6-10.3); EGFR African American 30.3 (>60); EGFR Non-African American 23.5 (>60); Globulin 2.8 g/dL (2-4); Potassium 4.2 mmol/L (3.5-5.0); Total Bilirubin 0.3 mg/dL (0.2-1.0); Total Protein 5.5 g/dL (6.4-8.9)
[2017-03-07] MEDS: Mometasone/Formoter 200/5 MDI INH SCH (20:03)
[2017-03-07] MEDS: Heparin VIAL(*) 5000 UNITS/ML VIAL (FIVE THOUSAND) SUBCUT SCH (21:02)
[2017-03-07] MEDS: Gabapentin CAP(*) 100 MG PO SCH (21:02)
[2017-03-08] MEDS: Heparin VIAL(*) 5000 UNITS/ML VIAL (FIVE THOUSAND) SUBCUT SCH ×3 (06:12→21:05)
[2017-03-08] MEDS: predniSONE TAB* 20 MG PO SCH (07:29)
[2017-03-08] MEDS: Clopidogrel TAB* 75 MG PO SCH (07:29)
[2017-03-08] MEDS: Montelukast Sodium TAB* 10 MG PO SCH (07:29)
[2017-03-08] MEDS: Diltiazem CD CAP* 120 MG PO SCH (07:29)
[2017-03-08] MEDS: Aspirin EC Low Dose* 81 MG TAB.EC PO SCH (07:29)
[2017-03-08] MEDS: Metoprolol Succinate XL TAB* 25 MG PO SCH ×2 (07:29→21:05)
[2017-03-08] MEDS: Tiotropium CAP.INH* CAP.INH/18 MCG (USE ORDER SET !) INH SCH (07:37)
[2017-03-08] MEDS: Mometasone/Formoter 200/5 MDI INH SCH (07:38)
[2017-03-08] MEDS: Albuterol HFA INHALER* 8 gm MDI INH PRN ×2 (07:38→15:32)
[2017-03-08 08:15] LABS: Hematocrit 24 % (35-47); Hemoglobin 8.1 g/dl (12.0-16.0); Mean Corpuscular HGB Conc 33 g/dl (31-36); Mean Corpuscular Hemoglobin 30 pg (27-31); Mean Corpuscular Volume 89 fL (80-97); Mean Platelet Volume 9 um3 (7.4-10.4); Red Blood Count 2.74 10^6/ul (4.0-5.4); Red Cell Distribution Width 18 % (10.5-15); White Blood Count 9.2 10^3/ul (3.5-10.8)
[2017-03-08 08:30] LABS: ALT 49 U/L (7-52); Albumin 2.9 g/dL (3.2-5.2); Alkaline Phosphatase 101 U/L (34-104); BUN/Creatinine Ratio 15.1 (8-20); Blood Urea Nitrogen 32 mg/dL (6-24); CO2 Carbon Dioxide 30 mmol/L (22-32); Calcium 8.4 mg/dL (8.6-10.3); Chloride 101 mmol/L (101-111); EGFR African American 29.6 (>60); Globulin 2.6 g/dL (2-4); Glucose 149 mg/dL (70-100); Phosphorus 2.8 mg/dL (2.5-5.0); Sodium 140 mmol/L (133-145); Total Protein 5.5 g/dL (6.4-8.9)
[2017-03-08] MEDS ORDERED: Spiriva Inhaler DEVICE* 1 EACH DEVICE INH ONE (09:00)
[2017-03-08 09:03] LABS: Anion Gap 9 mmol/L (2-11)
--- NOTE | 2017-03-08 10:17 | PN ---
Critical Care Services: CCM progress note Date of service: 03/08/17 71 F with severe COPD, chronic resp failure on 4L home O2, recurrent admissions recently for hypercapnic resp failure, AMS, PNA, diastolic hf. Has VN at home, found on her couch with frothy sputum and decreased responsiveness BIBA, was initiated on bipap in ED, improved with NIPPV, nebs, didnot require intubation. Received abx in ED, were not continued given no signs of sepsis. Pt seen and examined this am. Chart reviewed. Pt is alert and awake, has refused BiPAP last night. Is at her baseline O2 requirements this am. No cough. Is getting winded with slight movement ROS: All systems reviewed, as above PMHx, PSx, All, Social Hx, reviewed, unchanged since admission Vital Signs: Temp Pulse Resp BP SpO2 FiO2 99.2 F 81 22 137/66 100 35 03/08/17 07:36 03/08/17 09:00 03/08/17 09:43 03/08/17 09:00 03/08/17 09:00 03/07 17:42 Physical Exam: Gen:Obese female in bed in NAD HEENT:PERRLA, NO JVD, MP-4 airway Lungs:Diminished air entry b/l, decreased breath sounds at bases, rales at bases Cardiac: S1, S2+, regular Abdomen:Obese, BS+ Extremities: Chronic changes, Normal ROM Neuro:Alert,m awake, oriented x3 Fluid Balance (Past 24 Hours): I=700 O=800 Net -100 Intake & Output 03/06/17 03/07/17 03/08/17 03/09/17 06:59 06:59 06:59 06:59 Intake Total 700 Output Total 800 Balance -100 Weight 162 lb 0.636 oz Intake: IV Fluids 175 NS (0.9%) 70 IVPB 275 ABX - VANCOMYCIN 275 Oral 250 Output: Urine 800 Other: # Bowel Movements 1 Estimated Stool Amount Small Labs: Laboratory Results - last 24 hr 03/07/17 03/07/17 03/07/17 12:25 12:25 14:51 WBC 4.5 RBC 2.61 L Hgb 7.9 L Hct 24 L MCV 93 MCH 30 MCHC 32 RDW 18 H Plt Count 127 L MPV 8 Neut % (Auto) 90.0 H Lymph % (Auto) 5.8 L [place] % (Auto) 3.8 Eos % (Auto) 0.1 Baso % (Auto) 0.3 Absolute Neuts (auto) 4.0 Absolute Lymphs (auto) 0.3 L Absolute Monos (auto) 0.2 Absolute Eos (auto) 0 Absolute Basos (auto) 0 Absolute Nucleated RBC 0 Nucleated RBC % 0 INR (Anticoag Therapy) 0.98 APTT 28.8 Sodium Potassium Chloride Carbon Dioxide Anion Gap BUN Creatinine Est GFR ( Amer) Est GFR (Non-Af Amer) BUN/Creatinine Ratio Glucose Lactic Acid Calcium Phosphorus Magnesium Total Bilirubin AST ALT Alkaline Phosphatase Troponin I B-Natriuretic Peptide Total Protein Albumin Globulin Albumin/Globulin Ratio Influenza A (Rapid) Negative Influenza B (Rapid) Negative 03/07/17 03/07/17 03/07/17 15:30 15:30 15:30 WBC RBC Hgb Hct MCV MCH MCHC RDW Plt Count MPV Neut % (Auto) Lymph % (Auto) [place] % (Auto) Eos % (Auto) Baso % (Auto) Absolute Neuts (auto) Absolute Lymphs (auto) Absolute Monos (auto) Absolute Eos (auto) Absolute Basos (auto) Absolute Nucleated RBC Nucleated RBC % INR (Anticoag Therapy) APTT Sodium 140 Potassium 4.2 Chloride 100 L Carbon Dioxide 35 H Anion Gap 5 BUN 28 H Creatinine 2.08 H Est GFR ( Amer) 30.3 Est GFR (Non-Af Amer) 23.5 BUN/Creatinine Ratio 13.5 Glucose 232 H Lactic Acid 1.9 Calcium 8.3 L Phosphorus Magnesium Total Bilirubin 0.30 AST 44 H ALT 62 H Alkaline Phosphatase 102 Troponin I 0.08 H* B-Natriuretic Peptide 850 H Total Protein 5.5 L Albumin 2.7 L Globulin 2.8 Albumin/Globulin Ratio 1.0 Influenza A (Rapid) Influenza B (Rapid) 03/08/17 03/08/17 07:58 08:06 WBC 9.2 RBC 2.74 L Hgb 8.1 L Hct 24 L MCV 89 MCH 30 MCHC 33 RDW 18 H Plt Count 147 L MPV 9 Neut % (Auto) 90.9 H Lymph % (Auto) 5.9 L [place] % (Auto) 2.9 Eos % (Auto) 0.1 Baso % (Auto) 0.2 Absolute Neuts (auto) 8.3 H Absolute Lymphs (auto) 0.5 L Absolute Monos (auto) 0.3 Absolute Eos (auto) 0 Absolute Basos (auto) 0 Absolute Nucleated RBC 0.01 Nucleated RBC % 0.1 INR (Anticoag Therapy) APTT Sodium 140 Potassium TNP Chloride 101 Carbon Dioxide 30 Anion Gap 9 BUN 32 H Creatinine 2.12 H Est GFR ( Amer) 29.6 Est GFR (Non-Af Amer) 23.0 BUN/Creatinine Ratio 15.1 Glucose 149 H Lactic Acid Calcium 8.4 L Phosphorus 2.8 Magnesium 2.0 Total Bilirubin 0.40 AST TNP ALT 49 Alkaline Phosphatase 101 Troponin I B-Natriuretic Peptide Total Protein 5.5 L Albumin 2.9 L Globulin 2.6 Albumin/Globulin Ratio 1.1 Influenza A (Rapid) Influenza B (Rapid) Impression: 71 y o obese F with severe COPD, a/w AMS found to have acute hypercapnic resp failure sec to severe COPD and non-compliance with NIPPV and componenet of diastolic CHF 1.Acute on chronic hypercarbic and hypoxic respiratory failure- improving, currently at baseline O2 requirement 2.Mod encephalopathy sec to hypercarbia on admission, normal mental status this am 3.MARCELO on chronic CKD stage 3, stable 4. Mild inc LFts, ? likely congestive hepatopathy from cor pulmonale, normalized this am 5. Mild demand elevated troponin, stable, will not monitor 6. Anemia of chronic disease Plan: Neurologic: AMS resolved, likely from metabolic derangement, dodnot suspect primary COACH WIRER issue. Discussed wiht pt need to prevent hypercapnia which could be determental Cardiovascular: Diastolic CHF, received Lasix, appears to be dry, will avoid additional diuresis at this time also given RF. Hemodynamically stable currently. Will reassess need for diuretics Respiratory: Has severe COPD with poor lung reserve from severe emphysema. She is in need of ventilatory support however has been refusing NIPPV. Had lengthy discussion this am trying to help her understand need for PAP given recurrent admissions from failure to ventilate and resultant metabolic encephalopathy. Bicarb normalized and would not continue repeating her ABG. She has agreed to use NIPPV with nasal interface. Had resp therapist perform mask desensitization. Will c/w BiPAP at night and if she is willing to continue to use, will arrange for BiPAP at home upon d/c. C/w O2 supplementation and bronchodilators. Patient with air space opacities on CXR, ? fluid overload versus PNA. Was recently treated for PNA. Will f/u with rpt CXR Gastrointestinal: Tolerating po today Renal/Metabolic: Acute on chronic RF, monitor renal function closely. Infectious Disease: Recieved abx in ED, were not continued due to lack of signs of sepsis. Hematology: Anemia of chronic disease, stable Endocrine: On steroid for copd exac. Monitor Bl sugars closely Musculoskeletal: OOB to chair as tolerated, not able to tolerate exertion Psych/Social: Family and pt updated. Pt indicates she really wouldn't want intubation but still not committing to dnr /dni status. Supportive and preventative care as ordered. Vaccine: f/u needs VTE prophylaxis: heparin Critical Care Time: 40 min
[2017-03-08 11:16] LABS: Venous Bicarbonate HCO3 31.9 mmol/L (24-28)
[2017-03-08] MEDS: Gabapentin CAP(*) 100 MG PO SCH (21:05)
[2017-03-08] MEDS ORDERED: Potassium Chlor TAB* 20 MEQ TAB.ER PO ONE (23:00)
[2017-03-09] MEDS: Heparin VIAL(*) 5000 UNITS/ML VIAL (FIVE THOUSAND) SUBCUT SCH ×3 (05:44→21:08)
[2017-03-09] MEDS: Famotidine TAB* 20 MG PO SCH (07:31)
[2017-03-09] MEDS: Metoprolol Succinate XL TAB* 25 MG PO SCH ×2 (07:31→21:08)
[2017-03-09] MEDS: Diltiazem CD CAP* 120 MG PO SCH (07:31)
[2017-03-09] MEDS: Clopidogrel TAB* 75 MG PO SCH (07:32)
[2017-03-09] MEDS: Aspirin EC Low Dose* 81 MG TAB.EC PO SCH (07:32)
[2017-03-09] MEDS: predniSONE TAB* 20 MG PO SCH (07:32)
[2017-03-09] MEDS: Montelukast Sodium TAB* 10 MG PO SCH (07:32)
[2017-03-09] MEDS: Mometasone/Formoter 200/5 MDI INH SCH ×3 (08:40→20:41)
[2017-03-09] MEDS: Tiotropium CAP.INH* CAP.INH/18 MCG (USE ORDER SET !) INH SCH (09:12)
[2017-03-09] MEDS: Albuterol HFA INHALER* 8 gm MDI INH PRN ×2 (09:13→16:02)
--- NOTE | 2017-03-09 12:43 | PN ---
Progress Note - Progress Note Date of Service: 03/09/17 - Pulm f/u note Note: Pt seen and examined at bedside. Pt reproted improvement in breathing, still getting winded with exertion. 71 y o F with severe COPD, chronic resp failure on 4L home O2, recurrent admissions recently for hypercapnic resp failure, AMS, PNA, diastolic hf. Has VN at home, found on her couch with frothy sputum and decreased responsiveness BIBA, was initiated on bipap in ED, improved with NIPPV , nebs, didnot require intubation. Reports she used BiPAP last night without any issues. Is at her baseline O2 requirements this am. Active Medications Generic Name Dose Route Start Last Admin Trade Name Freq PRN Reason Stop Dose Admin Acetaminophen 650 mg 03/07/17 14:53 Tylenol Tab* PO Q6H PRN PAIN Albuterol 2 puff 03/07/17 14:05 03/09/17 09:13 Ventolin Hfa Inhaler* INH 2 puff Q4H PRN Administration SHORTNESS OF BREATH Aspirin 81 mg 03/08/17 09:00 03/09/17 07:32 Aspirin Ec Low Dose* PO 81 mg DAILY KEISHA Administration Clopidogrel Bisulfate 75 mg 03/08/17 09:00 03/09/17 07:32 Plavix Tab* PO 75 mg DAILY KEISHA Administration Diltiazem HCl 120 mg 03/08/17 09:00 03/09/17 07:31 Cardizem Cd Cap* PO 120 mg DAILY KEISHA Administration Famotidine 20 mg 03/09/17 09:00 03/09/17 07:31 Pepcid Tab* PO 20 mg DAILY KEISHA Administration Gabapentin 200 mg 03/07/17 21:00 03/08/17 21:05 Neurontin Cap(*) PO 200 mg BEDTIME KEISHA Administration Heparin Sodium (Porcine) 5,000 units 03/07/17 22:00 03/09/17 05:44 Heparin Vial(*) SUBCUT 5,000 units Q8HR KEISHA Administration Metoprolol Succinate 25 mg 03/08/17 09:00 03/09/17 07:31 Toprol Xl Tab* PO 25 mg BID KEISHA Administration Mometasone Furoate/Formoterol Fumar 2 puff 03/07/17 21:00 03/09/17 09:13 Dulera 200/5 Mdi* INH 2 puff BID KEISHA Administration Montelukast Sodium 10 mg 10/07/17 09:00 03/09/17 07:32 Singulair Tab* PO 10 mg DAILY KEISHA Administration Morphine Sulfate 2 mg 03/07/17 14:53 Morphine Inj (Syringe)* IV Q4H PRN PAIN - MILD Ondansetron HCl 4 mg 03/07/17 14:54 Zofran Inj* IV Q8H PRN NAUSEA Prednisone 40 mg 03/07/17 15:00 03/09/17 07:32 Deltasone Tab* PO 40 mg DAILY KEISHA Administration Senna 1 tab 03/07/17 14:54 Senokot Tab* PO DAILY PRN CONSTIPATION Tiotropium [place] 1 cap 03/08/17 09:00 03/09/17 09:12 Spiriva Cap.Inh* INH 1 cap DAILY KEISHA Administration Vital Signs Temp Pulse Resp BP Pulse Ox 97.4 F 84 22 128/46 98 03/09/17 07:35 03/09/17 09:05 03/09/17 08:00 03/09/17 07:35 03/09/17 07:35 Physical Exam: Gen:Obese female in bed in NAD HEENT:PERRLA, NO JVD, MP-4 airway Lungs:Diminished air entry b/l, decreased breath sounds at bases, rales at bases Cardiac: S1, S2+, regular Abdomen:Obese, BS+ Extremities: Chronic changes, Normal ROM Neuro:Alert,m awake, oriented x3 Labs: No new labs Impression/Recommendations: 71 y o obese F with severe COPD, a/w AMS found to have acute hypercapnic resp failure sec to severe COPD and non-compliance with NIPPV and componenet of diastolic CHF a/w acute on chronic hypercarbic and hypoxic respiratory failure- improving, currently at baseline O2 requirement, encephalopathy sec to hypercarbia improved, MARCELO on chronic CKD Has severe COPD with poor lung reserve from severe emphysema, in need of ventilatory support, has been able to use NIPPV. c/w BiPAP at night, will arrange for BiPAP at home upon d/c. Will obtain o/n oximetry C/w O2 supplementation and bronchodilators. Will need f/u CXR c/w bronchodilators PT/OT VTE prophylaxis: heparin D/w Dr López
--- NOTE | 2017-03-09 18:05 | PN ---
Subjective Date of Service: 03/09/17 Interval History: pt feels back to her baseline. on 02 at 4L Objective Active Medications: Acetaminophen (Tylenol Tab*) 650 mg PO Q6H PRN PRN Reason: PAIN Albuterol (Ventolin Hfa Inhaler*) 2 puff INH Q4H PRN PRN Reason: SHORTNESS OF BREATH Last Admin: 03/09/17 16:02 Dose: 2 puff Aspirin (Aspirin Ec Low Dose*) 81 mg PO DAILY [facility] Last Admin: 03/09/17 07:32 Dose: 81 mg Clopidogrel Bisulfate (Plavix Tab*) 75 mg PO DAILY [facility] Last Admin: 03/09/17 07:32 Dose: 75 mg Diltiazem HCl (Cardizem Cd Cap*) 120 mg PO DAILY [facility] Last Admin: 03/09/17 07:31 Dose: 120 mg Famotidine (Pepcid Tab*) 20 mg PO DAILY [facility] Last Admin: 03/09/17 07:31 Dose: 20 mg Gabapentin (Neurontin Cap(*)) 200 mg PO BEDTIME [facility] Last Admin: 03/08/17 21:05 Dose: 200 mg Heparin Sodium (Porcine) (Heparin Vial(*)) 5,000 units SUBCUT Q8HR [facility] Last Admin: 03/09/17 15:12 Dose: 5,000 units Metoprolol Succinate (Toprol Xl Tab*) 25 mg PO BID [facility] Last Admin: 03/09/17 07:31 Dose: 25 mg Mometasone Furoate/Formoterol Fumar (Dulera 200/5 Mdi*) 2 puff INH BID [facility] Last Admin: 03/09/17 09:13 Dose: 2 puff Montelukast Sodium (Singulair Tab*) 10 mg PO DAILY [facility] Last Admin: 03/09/17 07:32 Dose: 10 mg Morphine Sulfate (Morphine Inj (Syringe)*) 2 mg IV Q4H PRN PRN Reason: PAIN - MILD Ondansetron HCl (Zofran Inj*) 4 mg IV Q8H PRN PRN Reason: NAUSEA Prednisone (Deltasone Tab*) 40 mg PO DAILY [facility] Last Admin: 03/09/17 07:32 Dose: 40 mg Senna (Senokot Tab*) 1 tab PO DAILY PRN PRN Reason: CONSTIPATION Tiotropium [place] (Spiriva Cap.Inh*) 1 cap INH DAILY [facility] Last Admin: 10/08/17 09:12 Dose: 1 cap Vital Signs 03/08/17 03/08/17 03/08/17 19:50 19:57 20:00 Temperature 98.2 F Pulse Rate 71 Respiratory 16 20 16 Rate Blood Pressure 124/44 (mmHg) O2 Sat by Pulse 99 Oximetry 03/08/17 03/08/17 03/09/17 21:05 23:05 00:10 Temperature 98.3 F Pulse Rate 71 Respiratory 18 18 24 Rate Blood Pressure 130/51 (mmHg) O2 Sat by Pulse 94 Oximetry 03/09/17 03/09/17 03/09/17 03:31 07:35 08:00 Temperature 98.0 F 97.4 F Pulse Rate 89 64 Respiratory 24 22 Rate Blood Pressure 115/47 128/46 (mmHg) O2 Sat by Pulse 100 98 Oximetry 03/09/17 03/09/17 03/09/17 09:05 14:39 14:42 Temperature 97.9 F 97.9 F Pulse Rate 84 62 62 Respiratory 28 16 Rate Blood Pressure 125/38 125/38 (mmHg) O2 Sat by Pulse 100 100 Oximetry Oxygen Devices in Use Now: Nasal Cannula - at 4L Appearance: 71 yo f in nAD, AAOx3 Eyes: No Scleral Icterus, PERRLA Ears/Nose/Mouth/Throat: NL Teeth, Lips, Gums, Mucous Membranes Moist Neck: NL Appearance and Movements; NL JVP, Trachea Midline Respiratory: Symmetrical Chest Expansion and Respiratory Effort, - - coarse breath sounds at b/l abses , otherwise clear Cardiovascular: NL Sounds; No Murmurs; No JVD, RRR Abdominal: NL Sounds; No Tenderness; No Distention Lymphatic: No Cervical Adenopathy Extremities: No Clubbing, Cyanosis, - - +1 pitting pedal edema Skin: No Rash or Ulcers, No Nodules or Sclerosis Neurological: Alert and Oriented x 3, NL Muscle Strength and Tone Result Diagrams: 03/08/17 08:06 03/08/17 11:06 Additional Lab and Data: Lab Results 03/07/17 03/07/17 03/07/17 Range/Units 10:10 10:10 10:10 Patient Temperature Not Reportable ABG pH 7.22 L (7.35-7.45) ABG pH (Temp Correct) Not Reportable ABG pCO2 84 H* (35-45) mmHg ABG pCO2 (Temp Corrct Not Reportable ABG pO2 142 H (80-100) mmHg ABG pO2 (Temp Correct Not Reportable ABG HCO3 29.0 (19-31) mmol/L ABG O2 Saturation 99.0 H (95-98) % ABG Base Excess 5.2 H (-2.0-2.0) Respiration Rate 6 O2 Delivery Device bipap Ventilator Type Not Reportable Vent Mode Not Reportable FiO2 100 Inspiratory Time Not Reportable PEEP Not Reportable Pressure Support Not Reportable Pressure Control Not Reportable EPAP 6 IPAP 16 BiPAP Not Reportable Sodium 141 (133-145) mmol/L Potassium 4.7 (3.5-5.0) mmol/L Chloride 101 (101-111) mmol/L Carbon Dioxide 35 H (22-32) mmol/L Anion Gap 5 (2-11) mmol/L BUN 24 (6-24) mg/dL Creatinine 2.03 H (0.51-0.95) mg/dL Est GFR ( Amer) 31.1 (>60) Est GFR (Non-Af Amer) 24.2 (>60) BUN/Creatinine Ratio 11.8 (8-20) Glucose 125 H (70-100) mg/dL Lactic Acid (0.5-2.0) mmol/L Calcium 9.0 (8.6-10.3) mg/dL Total Bilirubin 0.50 (0.2-1.0) mg/dL AST 53 H (13-39) U/L ALT 71 H (7-52) U/L Alkaline Phosphatase 119 H (34-104) U/L Troponin I 0.08 H* (<0.04) ng/mL B-Natriuretic Peptide 755 H ( - 100) pg/mL Total Protein 6.0 L (6.4-8.9) g/dL Albumin 3.1 L (3.2-5.2) g/dL Globulin 2.9 (2-4) g/dL Albumin/Globulin Ratio 1.1 (1-3) 03/07/17 Range/Units 10:10 Patient Temperature ABG pH (7.35-7.45) ABG pH (Temp Correct) ABG pCO2 (35-45) mmHg ABG pCO2 (Temp Corrct ABG pO2 (80-100) mmHg ABG pO2 (Temp Correct ABG HCO3 (19-31) mmol/L ABG O2 Saturation (95-98) % ABG Base Excess (-2.0-2.0) Respiration Rate O2 Delivery Device Ventilator Type Vent Mode FiO2 Inspiratory Time PEEP Pressure Support Pressure Control EPAP IPAP BiPAP Sodium (133-145) mmol/L Potassium (3.5-5.0) mmol/L Chloride (101-111) mmol/L Carbon Dioxide (22-32) mmol/L Anion Gap (2-11) mmol/L BUN (6-24) mg/dL Creatinine (0.51-0.95) mg/dL Est GFR ( Amer) (>60) Est GFR (Non-Af Amer) (>60) BUN/Creatinine Ratio (8-20) Glucose (70-100) mg/dL Lactic Acid 1.0 (0.5-2.0) mmol/L Calcium (8.6-10.3) mg/dL Total Bilirubin (0.2-1.0) mg/dL AST (13-39) U/L ALT (7-52) U/L Alkaline Phosphatase (34-104) U/L Troponin I (<0.04) ng/mL B-Natriuretic Peptide ( - 100) pg/mL Total Protein (6.4-8.9) g/dL Albumin (3.2-5.2) g/dL Globulin (2-4) g/dL Albumin/Globulin Ratio (1-3) Microbiology and Other Data: Microbiology 03/07/17 11:40 Influenza Types A,B Antigen (NATASHA) - Final Nasopharyngeal Specimen received for Influenza A/B Molecular testing Assess/Plan/Problems-Billing Assessment:71 yo F with acute on chronic hypoxic respiratory failure 2/2 COPD exacerbation, acute on chronic diastolic CHF in a 71 yo F with hx of chronic diastolic CHF, CKD - Patient Problems (1) Acute on chronic respiratory failure with hypoxia Comment: The patient is fairly close to baseline. She continues on her usual 4L supplemental O2. She has a productive cough. Continue standing nebs and dulera ( symbicort at home). Continue prednisone though taper slowly. (2) Acute hypercapnic respiratory failure Comment: due to VEENA (?) in combination with acute diastolic CHF(EF 65% on ) and COPD will check pulse ox on RA at night to possibly qualify pt for BIPAP cont BIPAP at [facility] [place]. (3) Anemia Comment: Normocytic, dating back to 07/2016 EGD done 12/16 did not reveal any source of bleed. ? lower GI bleed vs heme positive stool card secondary to cross reaction with melon (was informed by the Dr. Lloyd that melon can cause a positive and she had been eating a lot of melon at that point. will need colonoscopy as outpatient. Hb stable for now (4) HTN (hypertension) Comment: Cont Cardizem,metoprolol. (5) Stage III chronic kidney disease Comment: with MARCELO at admission creat slighly higher than baseline cont to monitor (6) Elevated troponin Comment: related to demand ischemia. H/o NSTEMI in 02/16 cont plavix, BB, statin (7) DVT prophylaxis Comment: SQ heparin Status and Disposition: inpatient
[2017-03-09] MEDS: Atorvastatin* 20 MG TAB PO SCH (21:07)
[2017-03-09] MEDS: Gabapentin CAP(*) 100 MG PO SCH (21:08)
[2017-03-10] MEDS: Heparin VIAL(*) 5000 UNITS/ML VIAL (FIVE THOUSAND) SUBCUT SCH ×3 (05:51→20:45)
[2017-03-10 06:55] LABS: Hematocrit 23 % (35-47); Hemoglobin 7.3 g/dl (12.0-16.0); Mean Corpuscular HGB Conc 32 g/dl (31-36); Mean Corpuscular Hemoglobin 29 pg (27-31); Mean Corpuscular Volume 91 fL (80-97); Mean Platelet Volume 9 um3 (7.4-10.4); Red Blood Count 2.49 10^6/ul (4.0-5.4); Red Cell Distribution Width 19 % (10.5-15); White Blood Count 5.8 10^3/ul (3.5-10.8)
[2017-03-10 06:56] LABS: BUN/Creatinine Ratio 21.4 (8-20); Calcium 8.4 mg/dL (8.6-10.3); EGFR African American 34.2 (>60); EGFR Non-African American 26.6 (>60)
[2017-03-10] MEDS: Tiotropium CAP.INH* CAP.INH/18 MCG (USE ORDER SET !) INH SCH (08:21)
[2017-03-10] MEDS: Mometasone/Formoter 200/5 MDI INH SCH ×2 (08:21→19:38)
[2017-03-10] MEDS: Albuterol HFA INHALER* 8 gm MDI INH PRN ×3 (08:24→16:32)
[2017-03-10] MEDS: Aspirin EC Low Dose* 81 MG TAB.EC PO SCH (08:28)
[2017-03-10] MEDS: Clopidogrel TAB* 75 MG PO SCH (08:28)
[2017-03-10] MEDS: Famotidine TAB* 20 MG PO SCH (08:28)
[2017-03-10] MEDS: Metoprolol Succinate XL TAB* 25 MG PO SCH ×2 (08:28→20:45)
[2017-03-10] MEDS: Diltiazem CD CAP* 120 MG PO SCH (08:28)
[2017-03-10] MEDS: Montelukast Sodium TAB* 10 MG PO SCH (08:28)
[2017-03-10] MEDS ORDERED: predniSONE TAB* 20 MG PO SCH (09:00)
--- NOTE | 2017-03-10 18:02 | PN ---
Subjective Date of Service: 03/10/17 Interval History: pt had a heme positive stool sample. Stated that this time she "didn't look at her stool" and she doesn't recall ever having black stool. Sometimes she noted bright blood on the outside of stool and sometime she strains a lot to have a BM Objective Active Medications: Acetaminophen (Tylenol Tab*) 650 mg PO Q6H PRN PRN Reason: PAIN Albuterol (Ventolin Hfa Inhaler*) 2 puff INH Q4H PRN PRN Reason: SHORTNESS OF BREATH Last Admin: 03/10/17 16:32 Dose: 2 puff Atorvastatin Calcium (Lipitor*) 20 mg PO 2100 ON LICENSE OF [facility] Last Admin: 03/09/17 21:07 Dose: 20 mg Diltiazem HCl (Cardizem Cd Cap*) 120 mg PO DAILY ON LICENSE OF [facility] Last Admin: 03/10/17 08:28 Dose: 120 mg Famotidine (Pepcid Tab*) 20 mg PO DAILY ON LICENSE OF [facility] Last Admin: 03/10/17 08:28 Dose: 20 mg Gabapentin (Neurontin Cap(*)) 200 mg PO BEDTIME ON LICENSE OF [facility] Last Admin: 03/09/17 21:08 Dose: 200 mg Heparin Sodium (Porcine) (Heparin Vial(*)) 5,000 units SUBCUT Q8HR ON LICENSE OF [facility] Last Admin: 03/10/17 14:13 Dose: 5,000 units Metoprolol Succinate (Toprol Xl Tab*) 25 mg PO BID ON LICENSE OF [facility] Last Admin: 03/10/17 08:28 Dose: 25 mg Mometasone Furoate/Formoterol Fumar (Dulera 200/5 Mdi*) 2 puff INH BID ON LICENSE OF [facility] Last Admin: 03/10/17 08:21 Dose: 2 puff Montelukast Sodium (Singulair Tab*) 10 mg PO DAILY ON LICENSE OF [facility] Last Admin: 03/10/17 08:28 Dose: 10 mg Morphine Sulfate (Morphine Inj (Syringe)*) 2 mg IV Q4H PRN PRN Reason: PAIN - MILD Ondansetron HCl (Zofran Inj*) 4 mg IV Q8H PRN PRN Reason: NAUSEA Senna (Senokot Tab*) 1 tab PO DAILY PRN PRN Reason: CONSTIPATION Tiotropium [place] (Spiriva Cap.Inh*) 1 cap INH DAILY ON LICENSE OF [facility] Last Admin: 03/10/17 08:21 Dose: 1 cap Vital Signs 03/09/17 03/09/17 03/09/17 19:26 19:35 20:42 Temperature 98.5 F Pulse Rate 64 Respiratory 20 18 18 Rate Blood Pressure 137/41 (mmHg) O2 Sat by Pulse 100 98 Oximetry 03/09/17 03/09/17 03/10/17 21:08 23:08 00:01 Temperature 98.3 F Pulse Rate 65 Respiratory 18 16 16 Rate Blood Pressure 125/45 (mmHg) O2 Sat by Pulse 100 Oximetry 03/10/17 03/10/17 03/10/17 03:46 07:20 07:23 Temperature 98.1 F 98.1 F Pulse Rate 64 63 Respiratory 16 20 22 Rate Blood Pressure 147/46 136/45 (mmHg) O2 Sat by Pulse 98 100 Oximetry 03/10/17 03/10/17 03/10/17 08:25 11:36 15:23 Temperature 98.2 F 98.6 F Pulse Rate 63 62 64 Respiratory 20 22 16 Rate Blood Pressure 130/39 136/44 (mmHg) O2 Sat by Pulse 100 100 99 Oximetry Oxygen Devices in Use Now: Nasal Cannula - at 4L Appearance: 71 yo f in nAD, aAOx3 Eyes: No Scleral Icterus, PERRLA Ears/Nose/Mouth/Throat: NL Teeth, Lips, Gums, Mucous Membranes Moist Neck: NL Appearance and Movements; NL JVP, Trachea Midline Respiratory: Symmetrical Chest Expansion and Respiratory Effort, - - decreased breath sounds at b/l bases posteriorly, scant wheezes in b/l upper lungs Cardiovascular: NL Sounds; No Murmurs; No JVD Abdominal: NL Sounds; No Tenderness; No Distention, No Hepatosplenomegaly Lymphatic: No Cervical Adenopathy Extremities: No Clubbing, Cyanosis, - - +1 pitting ankle edema b/l Skin: No Nodules or Sclerosis Neurological: Alert and Oriented x 3, NL Muscle Strength and Tone Result Diagrams: 03/10/17 06:20 03/10/17 06:20 Additional Lab and Data: Lab Results 03/07/17 03/07/17 03/07/17 Range/Units 10:10 10:10 10:10 Patient Temperature Not Reportable ABG pH 7.22 L (7.35-7.45) ABG pH (Temp Correct) Not Reportable ABG pCO2 84 H* (35-45) mmHg ABG pCO2 (Temp Corrct Not Reportable ABG pO2 142 H (80-100) mmHg ABG pO2 (Temp Correct Not Reportable ABG HCO3 29.0 (19-31) mmol/L ABG O2 Saturation 99.0 H (95-98) % ABG Base Excess 5.2 H (-2.0-2.0) Respiration Rate 6 O2 Delivery Device bipap Ventilator Type Not Reportable Vent Mode Not Reportable FiO2 100 Inspiratory Time Not Reportable PEEP Not Reportable Pressure Support Not Reportable Pressure Control Not Reportable EPAP 6 IPAP 16 BiPAP Not Reportable Sodium 141 (133-145) mmol/L Potassium 4.7 (3.5-5.0) mmol/L Chloride 101 (101-111) mmol/L Carbon Dioxide 35 H (22-32) mmol/L Anion Gap 5 (2-11) mmol/L BUN 24 (6-24) mg/dL Creatinine 2.03 H (0.51-0.95) mg/dL Est GFR ( Amer) 31.1 (>60) Est GFR (Non-Af Amer) 24.2 (>60) BUN/Creatinine Ratio 11.8 (8-20) Glucose 125 H (70-100) mg/dL Lactic Acid (0.5-2.0) mmol/L Calcium 9.0 (8.6-10.3) mg/dL Total Bilirubin 0.50 (0.2-1.0) mg/dL AST 53 H (13-39) U/L ALT 71 H (7-52) U/L Alkaline Phosphatase 119 H (34-104) U/L Troponin I 0.08 H* (<0.04) ng/mL B-Natriuretic Peptide 755 H ( - 100) pg/mL Total Protein 6.0 L (6.4-8.9) g/dL Albumin 3.1 L (3.2-5.2) g/dL Globulin 2.9 (2-4) g/dL Albumin/Globulin Ratio 1.1 (1-3) 03/07/17 Range/Units 10:10 Patient Temperature ABG pH (7.35-7.45) ABG pH (Temp Correct) ABG pCO2 (35-45) mmHg ABG pCO2 (Temp Corrct ABG pO2 (80-100) mmHg ABG pO2 (Temp Correct ABG HCO3 (19-31) mmol/L ABG O2 Saturation (95-98) % ABG Base Excess (-2.0-2.0) Respiration Rate O2 Delivery Device Ventilator Type Vent Mode FiO2 Inspiratory Time PEEP Pressure Support Pressure Control EPAP IPAP BiPAP Sodium (133-145) mmol/L Potassium (3.5-5.0) mmol/L Chloride (101-111) mmol/L Carbon Dioxide (22-32) mmol/L Anion Gap (2-11) mmol/L BUN (6-24) mg/dL Creatinine (0.51-0.95) mg/dL Est GFR ( Amer) (>60) Est GFR (Non-Af Amer) (>60) BUN/Creatinine Ratio (8-20) Glucose (70-100) mg/dL Lactic Acid 1.0 (0.5-2.0) mmol/L Calcium (8.6-10.3) mg/dL Total Bilirubin (0.2-1.0) mg/dL AST (13-39) U/L ALT (7-52) U/L Alkaline Phosphatase (34-104) U/L Troponin I (<0.04) ng/mL B-Natriuretic Peptide ( - 100) pg/mL Total Protein (6.4-8.9) g/dL Albumin (3.2-5.2) g/dL Globulin (2-4) g/dL Albumin/Globulin Ratio (1-3) Microbiology and Other Data: Microbiology 03/07/17 11:40 Influenza Types A,B Antigen (NATASHA) - Final Nasopharyngeal Specimen received for Influenza A/B Molecular testing Assess/Plan/Problems-Billing Assessment:71 yo F with acute on chronic hypoxic respiratory failure 2/2 COPD exacerbation, acute on chronic diastolic CHF in a 71 yo F with hx of chronic diastolic CHF, CKD - Patient Problems (1) Acute on chronic respiratory failure with hypoxia Comment: The patient is fairly close to baseline. She continues on her usual 4L supplemental O2. She has a productive cough. Continue standing nebs and dulera ( symbicort at home). due to heme + stool, will d/c prednisone (2) Acute hypercapnic respiratory failure Comment: due to VEENA (?) in combination with acute diastolic CHF(EF 65% on ) and COPD Pt appears still in mild CHF, will start PO Lasix according to night pulse ox pt should qualify for outpatient BIPAP cont BIPAP at [facility] [place]. (3) Anemia Comment: Normocytic, dating back to 07/2016 EGD done 12/16 did not reveal any source of bleed. ? lower GI bleed vs heme positive stool due to hemorrhoids. will need colonoscopy as outpatient.For now will repeat stool guaiac Hb lower today, will f/u in AM with CBC. (4) HTN (hypertension) Comment: Cont Cardizem,metoprolol. controlled (5) Stage III chronic kidney disease Comment: with MARCELO at admission creat slighly higher than baseline cont to monitor (6) Elevated troponin Comment: related to demand ischemia. H/o NSTEMI in 02/16 BB, statin Plavix and ASA held today due to heme positive stool (7) DVT prophylaxis Comment: SQ heparin held due to heme positive stool Status and Disposition: inpatient
[2017-03-10] MEDS: Atorvastatin* 20 MG TAB PO SCH (20:43)
[2017-03-10] MEDS: Furosemide TAB* 40 MG PO SCH (20:43)
[2017-03-10] MEDS: Gabapentin CAP(*) 100 MG PO SCH (20:43)
[2017-03-11 04:45] LABS: Hematocrit 24 % (35-47); Hemoglobin 7.8 g/dl (12.0-16.0); Mean Corpuscular HGB Conc 32 g/dl (31-36); Mean Corpuscular Hemoglobin 30 pg (27-31); Mean Corpuscular Volume 92 fL (80-97); Mean Platelet Volume 9 um3 (7.4-10.4); Red Blood Count 2.61 10^6/ul (4.0-5.4); Red Cell Distribution Width 18 % (10.5-15)
[2017-03-11 04:56] LABS: BUN/Creatinine Ratio 20.6 (8-20); Calcium 8.3 mg/dL (8.6-10.3); EGFR African American 38.2 (>60); EGFR Non-African American 29.7 (>60); Potassium 3.9 mmol/L (3.5-5.0)
[2017-03-11] MEDS: Tiotropium CAP.INH* CAP.INH/18 MCG (USE ORDER SET !) INH SCH (08:57)
[2017-03-11] MEDS: Mometasone/Formoter 200/5 MDI INH SCH ×2 (08:57→21:07)
[2017-03-11] MEDS: Diltiazem CD CAP* 120 MG PO SCH (09:00)
[2017-03-11] MEDS: Famotidine TAB* 20 MG PO SCH (09:00)
[2017-03-11] MEDS: Montelukast Sodium TAB* 10 MG PO SCH (09:00)
[2017-03-11] MEDS: Furosemide TAB* 40 MG PO SCH (09:00)
[2017-03-11] MEDS: Metoprolol Succinate XL TAB* 25 MG PO SCH ×2 (09:00→19:50)
[2017-03-11] MEDS ORDERED: Furosemide IV* 10 MG/ML 2 ML VIAL (20 MG) IV ONE (09:59)
--- NOTE | 2017-03-11 10:33 | PN ---
Subjective Date of Service: 03/11/17 Interval History: Pt feels well, no new complaints Objective Active Medications: Acetaminophen (Tylenol Tab*) 650 mg PO Q6H PRN PRN Reason: PAIN Albuterol (Ventolin Hfa Inhaler*) 2 puff INH Q4H PRN PRN Reason: SHORTNESS OF BREATH Last Admin: 03/10/17 16:32 Dose: 2 puff Atorvastatin Calcium (Lipitor*) 20 mg PO 2100 [facility] Last Admin: 03/10/17 20:43 Dose: 20 mg Diltiazem HCl (Cardizem Cd Cap*) 120 mg PO DAILY [facility] Last Admin: 03/11/17 09:00 Dose: 120 mg Famotidine (Pepcid Tab*) 20 mg PO DAILY [facility] Last Admin: 03/11/17 09:00 Dose: 20 mg Furosemide (Lasix Tab*) 40 mg PO DAILY [facility] Last Admin: 03/11/17 09:00 Dose: 40 mg Gabapentin (Neurontin Cap(*)) 200 mg PO BEDTIME [facility] Last Admin: 03/10/17 20:43 Dose: 200 mg Metoprolol Succinate (Toprol Xl Tab*) 25 mg PO BID [facility] Last Admin: 03/11/17 09:00 Dose: 25 mg Mometasone Furoate/Formoterol Fumar (Dulera 200/5 Mdi*) 2 puff INH BID [facility] Last Admin: 03/11/17 08:57 Dose: 2 puff Montelukast Sodium (Singulair Tab*) 10 mg PO DAILY [facility] Last Admin: 03/11/17 09:00 Dose: 10 mg Morphine Sulfate (Morphine Inj (Syringe)*) 2 mg IV Q4H PRN PRN Reason: PAIN - MILD Ondansetron HCl (Zofran Inj*) 4 mg IV Q8H PRN PRN Reason: NAUSEA Senna (Senokot Tab*) 1 tab PO DAILY PRN PRN Reason: CONSTIPATION Tiotropium [place] (Spiriva Cap.Inh*) 1 cap INH DAILY [facility] Last Admin: 03/11/17 08:57 Dose: 1 cap Vital Signs 03/10/17 03/10/17 03/10/17 11:36 15:23 19:18 Temperature 98.2 F 98.6 F 98.3 F Pulse Rate 62 64 67 Respiratory 22 16 16 Rate Blood Pressure 130/39 136/44 142/48 (mmHg) O2 Sat by Pulse 100 99 100 Oximetry 03/10/17 03/10/17 03/10/17 19:39 20:00 20:43 Temperature Pulse Rate Respiratory 18 16 16 Rate Blood Pressure (mmHg) O2 Sat by Pulse 98 Oximetry 03/10/17 03/10/17 03/11/17 22:43 23:55 03:39 Temperature 97.4 F 98.1 F Pulse Rate 58 65 Respiratory 20 20 20 Rate Blood Pressure 132/54 151/42 (mmHg) O2 Sat by Pulse 97 100 Oximetry 03/11/17 03/11/17 03/11/17 07:24 07:30 09:00 Temperature 97.9 F Pulse Rate 62 62 Respiratory 22 20 14 Rate Blood Pressure 151/42 (mmHg) O2 Sat by Pulse 100 98 Oximetry Oxygen Devices in Use Now: Nasal Cannula - at 4L Appearance: 71 yo f in NAD, aAOx3 Eyes: No Scleral Icterus, PERRLA Ears/Nose/Mouth/Throat: NL Teeth, Lips, Gums, Mucous Membranes Moist Neck: NL Appearance and Movements; NL JVP, Trachea Midline Respiratory: Symmetrical Chest Expansion and Respiratory Effort, - - scattered wheezes in b/l mid lungs and decreased breath sounds at bases Cardiovascular: NL Sounds; No Murmurs; No JVD, RRR Abdominal: NL Sounds; No Tenderness; No Distention, No Hepatosplenomegaly Lymphatic: No Cervical Adenopathy Extremities: No Edema, No Clubbing, Cyanosis Skin: No Rash or Ulcers, No Nodules or Sclerosis Neurological: Alert and Oriented x 3, NL Muscle Strength and Tone Result Diagrams: 03/11/17 04:18 03/11/17 04:18 Additional Lab and Data: Lab Results 03/07/17 03/07/17 03/07/17 Range/Units 10:10 10:10 10:10 Patient Temperature Not Reportable ABG pH 7.22 L (7.35-7.45) ABG pH (Temp Correct) Not Reportable ABG pCO2 84 H* (35-45) mmHg ABG pCO2 (Temp Corrct Not Reportable ABG pO2 142 H (80-100) mmHg ABG pO2 (Temp Correct Not Reportable ABG HCO3 29.0 (19-31) mmol/L ABG O2 Saturation 99.0 H (95-98) % ABG Base Excess 5.2 H (-2.0-2.0) Respiration Rate 6 O2 Delivery Device bipap Ventilator Type Not Reportable Vent Mode Not Reportable FiO2 100 Inspiratory Time Not Reportable PEEP Not Reportable Pressure Support Not Reportable Pressure Control Not Reportable EPAP 6 IPAP 16 BiPAP Not Reportable Sodium 141 (133-145) mmol/L Potassium 4.7 (3.5-5.0) mmol/L Chloride 101 (101-111) mmol/L Carbon Dioxide 35 H (22-32) mmol/L Anion Gap 5 (2-11) mmol/L BUN 24 (6-24) mg/dL Creatinine 2.03 H (0.51-0.95) mg/dL Est GFR ( Amer) 31.1 (>60) Est GFR (Non-Af Amer) 24.2 (>60) BUN/Creatinine Ratio 11.8 (8-20) Glucose 125 H (70-100) mg/dL Lactic Acid (0.5-2.0) mmol/L Calcium 9.0 (8.6-10.3) mg/dL Total Bilirubin 0.50 (0.2-1.0) mg/dL AST 53 H (13-39) U/L ALT 71 H (7-52) U/L Alkaline Phosphatase 119 H (34-104) U/L Troponin I 0.08 H* (<0.04) ng/mL B-Natriuretic Peptide 755 H ( - 100) pg/mL Total Protein 6.0 L (6.4-8.9) g/dL Albumin 3.1 L (3.2-5.2) g/dL Globulin 2.9 (2-4) g/dL Albumin/Globulin Ratio 1.1 (1-3) 03/07/17 Range/Units 10:10 Patient Temperature ABG pH (7.35-7.45) ABG pH (Temp Correct) ABG pCO2 (35-45) mmHg ABG pCO2 (Temp Corrct ABG pO2 (80-100) mmHg ABG pO2 (Temp Correct ABG HCO3 (19-31) mmol/L ABG O2 Saturation (95-98) % ABG Base Excess (-2.0-2.0) Respiration Rate O2 Delivery Device Ventilator Type Vent Mode FiO2 Inspiratory Time PEEP Pressure Support Pressure Control EPAP IPAP BiPAP Sodium (133-145) mmol/L Potassium (3.5-5.0) mmol/L Chloride (101-111) mmol/L Carbon Dioxide (22-32) mmol/L Anion Gap (2-11) mmol/L BUN (6-24) mg/dL Creatinine (0.51-0.95) mg/dL Est GFR ( Amer) (>60) Est GFR (Non-Af Amer) (>60) BUN/Creatinine Ratio (8-20) Glucose (70-100) mg/dL Lactic Acid 1.0 (0.5-2.0) mmol/L Calcium (8.6-10.3) mg/dL Total Bilirubin (0.2-1.0) mg/dL AST (13-39) U/L ALT (7-52) U/L Alkaline Phosphatase (34-104) U/L Troponin I (<0.04) ng/mL B-Natriuretic Peptide ( - 100) pg/mL Total Protein (6.4-8.9) g/dL Albumin (3.2-5.2) g/dL Globulin (2-4) g/dL Albumin/Globulin Ratio (1-3) Microbiology and Other Data: Microbiology 03/07/17 11:40 Influenza Types A,B Antigen (NATASHA) - Final Nasopharyngeal Specimen received for Influenza A/B Molecular testing Assess/Plan/Problems-Billing Assessment:71 yo F with acute on chronic hypoxic respiratory failure 2/2 COPD exacerbation, acute on chronic diastolic CHF in a 71 yo F with hx of chronic diastolic CHF, CKD - Patient Problems (1) Acute on chronic respiratory failure with hypoxia Comment: The patient is fairly close to baseline. She continues on her usual 4L supplemental O2. She has a productive cough. Continue standing nebs and dulera ( symbicort at home). due to heme + stool, prednisone d/c'd on 03/10/17 (2) Acute hypercapnic respiratory failure Comment: due to VEENA (?) in combination with acute diastolic CHF(EF 65% on ) and COPD Pt appears still in mild CHF, cont PO Lasix according to night pulse ox pt missed qualification for outpatient BIPAP by 7 seconds. will eval again tonight cont BIPAP at [facility]. (3) Anemia Comment: Normocytic, dating back to 07/2016 EGD done 12/16 did not reveal any source of bleed. ? lower GI bleed vs heme positive stool due to hemorrhoids. will need colonoscopy as outpatient. Repeat stool guaiac neg. D/w Dr. Gillette who will see pt in consult Hb lower today,will transfuse 1 U PRBC due to pt with chronic hypoxemia and CHF with poor physiologic reserve. Iron studies ordered (4) HTN (hypertension) Comment: Cont Cardizem,metoprolol. controlled (5) Stage III chronic kidney disease Comment: with MARCELO at admission creat slighly higher than baseline cont to monitor (6) Elevated troponin Comment: related to demand ischemia. H/o NSTEMI in 02/16 BB, statin Plavix and ASA held due to heme positive stool (7) DVT prophylaxis Comment: SQ heparin held due to heme positive stool Status and Disposition: inpatient
[2017-03-11 12:07] LABS: Corrected Retic Count 1.2 % (0.5-1.5); Immature Retic Fraction 0.53
[2017-03-11 12:46] LABS: Total Iron Binding Capacity 349 mcg/dL (250-450); Transferrin 249 mg/dL (203-362)
[2017-03-11 13:11] LABS: Vitamin B12 > 1450 pg/mL (180-914)
[2017-03-11] MEDS: Gabapentin CAP(*) 100 MG PO SCH (19:50)
[2017-03-11] MEDS: Atorvastatin* 20 MG TAB PO SCH (19:50)
[2017-03-12 05:18] LABS: Hematocrit 29 % (35-47); Hemoglobin 9.9 g/dl (12.0-16.0); Mean Corpuscular HGB Conc 34 g/dl (31-36); Mean Corpuscular Hemoglobin 30 pg (27-31); Mean Corpuscular Volume 89 fL (80-97); Mean Platelet Volume 8 um3 (7.4-10.4); Red Blood Count 3.29 10^6/ul (4.0-5.4); Red Cell Distribution Width 17 % (10.5-15); White Blood Count 4.9 10^3/ul (3.5-10.8)
[2017-03-12 05:35] LABS: BUN/Creatinine Ratio 16.5 (8-20); Calcium 8.7 mg/dL (8.6-10.3); EGFR African American 38.2 (>60); EGFR Non-African American 29.7 (>60); Potassium 3.4 mmol/L (3.5-5.0)
[2017-03-12 07:14] VITALS: BP 142/49
[2017-03-12] MEDS: Metoprolol Succinate XL TAB* 25 MG PO SCH (08:36)
[2017-03-12] MEDS: Montelukast Sodium TAB* 10 MG PO SCH (08:36)
[2017-03-12] MEDS: Furosemide TAB* 40 MG PO SCH (08:36)
[2017-03-12] MEDS: Diltiazem CD CAP* 120 MG PO SCH (08:37)
[2017-03-12] MEDS: Famotidine TAB* 20 MG PO SCH (08:37)
[2017-03-12] MEDS: Mometasone/Formoter 200/5 MDI INH SCH (08:48)
[2017-03-12] MEDS: Tiotropium CAP.INH* CAP.INH/18 MCG (USE ORDER SET !) INH SCH (08:49)
[2017-03-12] MEDS: Albuterol HFA INHALER* 8 gm MDI INH PRN (08:50)
[2017-03-12] MEDS ORDERED: Potassium Chlor TAB* 20 MEQ TAB.ER PO ONE (08:58)
--- NOTE | 2017-03-13 00:23 | DS ---
CC: Dr. Holbrook; Dr. Lloyd; Dr. Funk * DISCHARGE SUMMARY: DATE OF ADMISSION: 03/07/17 DATE OF DISCHARGE: 03/12/17 PRIMARY CARE PROVIDER: Dr. Holbrook. DISCHARGE DIAGNOSES: 1. Acute hypercapnic respiratory failure that was thought to be due to a combination of diastolic congestive heart failure that may have been a consequence of negative pressure edema when the patient sleeps and has obstructive sleep apnea symptoms. 2. Acute on chronic respiratory failure with hypoxia. The patient's hypoxemia at discharge is back to baseline with her oxygen needs at 4 L. 3. Worsening of chronic normocytic anemia. The patient has one sample of stool that was heme-positive, one was heme-negative. The patient has history of a very similar presentation in 2017 in November when upper endoscopy yielded mild gastritis but no clear source of bleed was evident. At this point, the patient is recommended to have outpatient colonoscopy and that was not undertaken during her hospital stay. 4. Elevated troponin related to demand ischemia. SECONDARY DIAGNOSES: 1. History of severe chronic obstructive pulmonary disease, oxygen dependent at 4 L. 2. History of chronic diastolic coronary heart failure with ejection fraction of 65% documented in January 2017. 3. History of normocytic anemia dating back to the beginning of 2016. 3. History of recent non-ST elevation myocardial infarction in January 2017. 4. History of noted anemia with heme-positive stools in November 2016, status post upper endoscopy that showed mild gastritis. 5. Hypertension. 6. Hyperlipidemia. 7. Chronic kidney disease stage 3 with creatinine baseline of 1.5 to 2. 8. History of cerebrovascular accident. 9. Peripheral vascular disease. 10. History of carotid endarterectomy. 11. History of hysterectomy for cervical carcinoma. MEDICATIONS AT DISCHARGE: 1. Albuterol inhaler 2 puffs every 4 hours p.r.n. 2. DuoNeb nebulizer on a p.r.n. basis. 3. Aspirin 81 mg daily. 4. Symbicort 160/4.5, 1 inhalation b.i.d. 5. Plavix 75 mg daily. 6. Vitamin B12, 1000 mcg daily. 7. Cardizem CD 120 mg daily. 8. Furosemide 40 mg daily, which is a new medication. 9. Gabapentin 200 mg at bedtime. 10. Avapro 300 mg daily. 11. Metoprolol succinate 25 mg b.i.d. 12. Singulair 10 mg daily. 13. Nitroglycerine patch 0.2% daily. 14. Niferex 150 mg daily. 15. Spiriva 1 inhalation daily. The patient is recommended to have a basic metabolic panel and CBC drawn in a week and that likely will be obtained by the visiting nurses for her history of anemia as well as that she is started on a new diuretic Lasix. At discharge, we are not sure if the patient qualifies for Trilogy setup. She had 2 nocturnal pulse oximetry reported, one on 03/10/17, one on 03/11/17. The first one showed that on 4 L of oxygen, the patient nearly qualified for BiPAP but missed it by 7 seconds duration of her oxygenation levels below 89. The second night, the patient was placed on BiPAP and her oxygen saturation actually was worse than on oxygen alone. Both of the times, she had a significant amount of desaturations. At that point, recommendation was for the patient to undergo evaluation for Trilogy. Documentation requesting evaluation of the patient for Trilogy and asking for acceptance of that was sent out to the company who would provide such setup and we are currently waiting for their answer. Nevertheless, the patient is going to be discharged home. If she does not qualify for Trilogy, she is recommended to follow up with Dr. Funk for further outpatient sleep study. LABORATORY DATA AND STUDIES: Performed during the hospital stay included: On 03/12/17, white blood cell count of 4.9, hemoglobin of 9.9, hematocrit of 29, and platelets of 168,000. Sodium was 140, potassium 3.4, chloride 97, carbon dioxide 40, BUN 28, creatinine 1.7. The patient's iron studies showed iron level of 53, TIBC of 349, ferritin 154, vitamin B12 of 1450, folate of 9.7. The patient's one sample of stool was heme positive and one heme negative. HOSPITALIZATION COURSE: Abby Lambert is a 71-year-old female with a history of severe oxygen dependent COPD and possible sleep apnea who presented to hospital after she was found cyanotic, unresponsive, foaming out of her mouth on 03/07/17. She was placed on BiPAP and treated in the intensive care unit. She did very well with BiPAP and she was eventually liberated from it and transferred to medical floor for further management. During her stay on medical floor, she was noted to have continuation of her normocytic anemia with hemoglobin down to 7.3 on 03/10/17. At that point, also her stool sample was heme positive. I discussed the case with Dr. Lloyd. A repeat hemoglobin actually marcos to 7.8 without transfusion. Her repeat stool sample was negative for blood also. Dr. Lloyd was the physician who performed her upper endoscopy in November 2016 where the patient had similar results of sampling of stool being positive for blood one time and negative the other. At this point, due to the patient's current respiratory status and chronic ongoing issues, she is not the best candidate for colonoscopy which was recommended by Dr. Lloyd as an outpatient. It is recommended for the patient to continue her current treatment and once she is stronger, she will likely require outpatient colonoscopy. Nevertheless, due to the patient's history of diastolic dysfunction and chronic hypoxemia, she was transfused 1 unit of packed red blood cells on 03/11/17 and by 03/12/17 her hemoglobin was 9.9 at the time of discharge. As mentioned above, we tried to qualify the patient for BiPAP twice. The first time, her overnight pulse oximetry showed that the patient had significant hypoxia but the patient missed the duration of hypoxemia by 7 seconds to qualify for BiPAP. The second night the patient somehow by accident actually had overnight pulse oximetry on BiPAP which showed that she had more severe hypoxemia on BiPAP and without. At this point, recommendation was for the patient to be evaluated for Trilogy. The documentation was sent out and acceptance of that by the patient's insurance company is pending at the time of discharge. At the discharge, the patient recommended to follow up with her primary care provider in 4 to 7 days. Basic metabolic panel with CBC is going to be drawn by visiting nurses in approximately 1 week. At discharge, the patient is ambulating with roller walker and 4 L of oxygen nasal cannula which is her baseline. PHYSICAL EXAMINATION: At the time of discharge, blood pressure of 142/49, heart rate of 77 and regular, respiratory rate 20, oxygen saturation 99% on 4 L of oxygen nasal cannula, temperature 99.4. General: The patient is a very pleasant 71-year- old female who is in no acute distress. Alert, awake, and oriented x3. HEENT: Head atraumatic, normocephalic. Eyes: Pupils equal and reactive to light and accommodation. Oropharynx clear. Mucosa moist. Neck: Supple. No JVD. No bruits bilaterally. Cardiovascular: Regular rate and rhythm. No murmur. Respiratory: Distant breath sounds bilaterally with scant bilateral bibasilar wheezes. Abdomen: Soft, nontender. Bowel sounds are present in all 4 quadrants. Extremities: There is trace bilateral pedal edema. Pulses are +2 bilaterally. There is no clubbing or cyanosis. Neuro Evaluation : Speech clear. Cranial nerves II through XII grossly intact. Motor strength is 5/5 bilaterally. Please note that this is a very short summary of the patient's hospital stay. Please refer to medical records for further details. TIME SPENT: Approximately 45 minutes were spent on the patient's discharge. [id number]/[facility] #: [id number] [place]
== END 2017-03-12 14:20 | disposition home or self-care (01) | DRG 189 ==
LOC: ED 10:02 → ICU 11:06 → MEDTELE 03-08 15:32
PROVIDERS: ADMIT Internal Medicine Critical Care Medicine; ATTEND Internal Medicine
PROC: 5A09357 Assistance with Respiratory Ventilation, Less than 24 Consecutive Hours, Continuous Positive Airway Pressure (ICD-10-PCS; principal; 2017-03-07)
DX: J96.22 Acute and chronic respiratory failure with hypercapnia (principal); G93.40 Encephalopathy, unspecified; I50.33 Acute on chronic diastolic (congestive) heart failure; N17.9 Acute kidney failure, unspecified; J70.0 Acute pulmonary manifestations due to radiation; I13.0 Hypertensive heart and chronic kidney disease with heart failure and stage 1 through stage 4 chronic kidney disease, or unspecified chronic kidney disease; J44.1 Chronic obstructive pulmonary disease with (acute) exacerbation; I24.8 Other forms of acute ischemic heart disease; J96.21 Acute and chronic respiratory failure with hypoxia; E78.00 Pure hypercholesterolemia, unspecified; M46.90 Unspecified inflammatory spondylopathy, site unspecified; Z80.8 Family history of malignant neoplasm of other organs or systems; Z87.891 Personal history of nicotine dependence; N18.3 Chronic kidney disease, stage 3 (moderate); D63.1 Anemia in chronic kidney disease; E66.9 Obesity, unspecified; Z91.19 Patient's noncompliance with other medical treatment and regimen; Z99.81 Dependence on supplemental oxygen; I25.2 Old myocardial infarction; K29.70 Gastritis, unspecified, without bleeding; I73.9 Peripheral vascular disease, unspecified; Z79.82 Long term (current) use of aspirin; Z79.02 Long term (current) use of antithrombotics/antiplatelets; Z79.52 Long term (current) use of systemic steroids; Z68.30 Body mass index [BMI] 30.0-30.9, adult
CPT/HCPCS: 36415; 36600; 71010; 80048; 80053; 82272; 82607; 82728; 82746; 82803; 83540; 83550; 83605; 83735; 83880; 84100; 84484; 85025; 85045; 85610; 85730; 86850; 86900; 86901; 86922; 87040; 87502; 93005; 94640; 94660; 94760; 94762; A9270-GY; J0692; J1644; J1940; J1956; J2930; J3370; J7512; P9040

== ENCOUNTER 2017-10-28 19:04 | Inpatient (IN) | payer OTHER ==
[2017-10-28] MEDS ORDERED: Albuterol/Ipratropium NEB.SOL* Albuterol 2.5 MG/Ipratropium 0.5 MG 3 ML INH ONE (19:21)
[2017-10-28] MEDS ORDERED: Magnesium Sulfate 2 GM IV* 2 GM/50 ML BAG IVPB ONE (19:24)
[2017-10-28] MEDS ORDERED: methylPREDNISolone 125 MG* 2 ML VIAL IV ONE (19:24)
[2017-10-28 20:21] LABS: ABS Basophils 0.2 10^3/ul (0-0.2); ABS Eosinophils 0.1 10^3/ul (0-0.6); ABS Lymphocytes 1.7 10^3/ul (1.0-4.8); ABS Monocytes 1.3 10^3/ul (0-0.8); ABS Neutrophils 12.8 10^3/ul (1.5-7.7); ABS Nucleated RBC 0 10^3/ul; Eosinophil % 0.6 % (0-6); Hematocrit 28 % (35-47); Hemoglobin 8.9 g/dl (12.0-16.0); Lymphocyte % 10.4 % (25-47); Mean Corpuscular HGB Conc 32 g/dl (31-36); Mean Corpuscular Hemoglobin 29 pg (27-31); Mean Corpuscular Volume 93 fL (80-97); Mean Platelet Volume 9.1 um3 (7.4-10.4); Nucleated Red Blood Cells % 0; Platelet Count 250 10^3/ul (150-450); Red Blood Count 3.01 10^6/ul (4.0-5.4); Red Cell Distribution Width 14 % (10.5-15)
--- NOTE | 2017-10-28 20:22 | RAD ---
HISTORY: Shortness of breath COMPARISONS: March 07, 2017 VIEWS: 2: Frontal and lateral views of the chest. FINDINGS: CARDIOMEDIASTINAL SILHOUETTE: The cardiac silhouette is mildly enlarged. The cardiomediastinal silhouette is otherwise normal. ORIN: The orin are normal. PLEURA: The costophrenic angles are sharp. No pleural abnormalities are noted. LUNG PARENCHYMA: There is hyperinflation with flattening of the diaphragm and expansion of the AP diameter of the chest. ABDOMEN: The upper abdomen is clear. There is no subphrenic gas. BONES AND SOFT TISSUES: No bone or soft tissue abnormalities are noted. OTHER: None. IMPRESSION: MILD CARDIOMEGALY. COPD.
[2017-10-28 20:29] LABS: INR 0.87 (0.77-1.02)
[2017-10-28 20:34] LABS: EGFR Non-African American 25.9 (>60)
--- NOTE | 2017-10-28 22:16 | ED ---
Margi You Gabriel scribvignesh for Ric Gonzalez MD on 10/28/17 at 1925 . Shortness of Breath - HPI Summary HPI Summary: This patient is a 72 year old F BIBA to [facility] accompanied by her family with a chief complaint of SOB since 1400 this afternoon. The patient rates the pain 0/ 10 in severity. Patient denies cough, pain , and fever. Pt is not on prednisone. - History of Current Complaint Time Seen by Provider: 10/28/17 19:13 Hx Obtained From: Patient Onset/Duration: Lasting Days, Still Present Timing: Constant Current Severity: Moderate Dyspnea At: Rest Associated Signs & Symptoms: Negative - cough, pain ,fever, - Allergy/Home Medications Allergies/Adverse Reactions: Allergies Allergy/AdvReac Type Severity Reaction Status Date / Time No Known Allergies Allergy Verified 12/09/16 21:59 Home Medications: Home Medications Albuterol HFA INHALER* [Ventolin HFA Inhaler*] 1 puff INH Q4H PRN 10/28/17 [ History Confirmed 10/28/17] Aspirin EC TAB* [Ecotrin EC Low Dose 81 MG*] 81 mg PO DAILY 10/28/17 [History Confirmed 10/28/17] Atorvastatin* [Lipitor*] 20 mg PO DAILY 10/28/17 [History Confirmed 10/28/17] Budesonide/Formote 160/4.5(NF) [Symbicort 160/4.5 (NF)] 1 puff INH BID 10/28/17 [History Confirmed 10/28/17] Clopidogrel TAB* [Plavix TAB*] 75 mg PO DAILY 10/28/17 [History Confirmed ] Cyanocobalamin TAB* [Vitamin B12 TAB*] 500 mcg PO DAILY 10/28/17 [History Confirmed 10/28/17] Furosemide TAB* [Lasix TAB*] 40 mg PO DAILY 10/28/17 [History Confirmed 10/28/17 ] Gabapentin CAP(*) [Neurontin 100 mg CAP(*)] 100 mg PO DAILY 10/28/17 [History Confirmed 10/28/17] Gabapentin CAP(*) [Neurontin 100 mg CAP(*)] 200 mg PO BEDTIME 10/28/17 [History Confirmed 10/28/17] Irbesartan (NF) [Avapro (NF)] 300 mg PO DAILY 10/28/17 [History Confirmed ] Iron Polysaccharide Complex [Ferrex 150] 150 mg PO DAILY 10/28/17 [History Confirmed 10/28/17] Melatonin (NF) 1 tab PO BEDTIME 10/28/17 [History Confirmed 10/28/17] Metoprolol Succinate XL TAB* [Toprol XL TAB*] 50 mg PO DAILY 10/28/17 [History Confirmed 10/28/17] Montelukast Sodium TAB* [Singulair TAB*] 10 mg PO DAILY 10/28/17 [History Confirmed 10/28/17] Tiotropium CAP.INH* [Spiriva CAP.INH*] 1 cap.inh INH DAILY 10/28/17 [History Confirmed 10/28/17] Umeclidin 62.5 MDI(NF) [Incruse ELLIPTA MDI (NF)] 62.5 mcg IN DAILY 10/28/17 [ History Confirmed 10/28/17] dilTIAZem HCl [Cartia Xt] 120 mg PO DAILY 10/28/17 [History Confirmed 10/28/17] PMH/Surg Hx/FS Hx/Imm Hx Endocrine/Hematology History: Denies: Hx Diabetes Cardiovascular History: Reports: Hx Congestive Heart Failure, Hx Hypercholesterolemia, Hx Hypertension Denies: Hx Angina, Hx Coronary Artery Disease, Hx Myocardial Infarction, Hx Pacemaker/ICD, Hx Valvular Heart Disease Respiratory History: Reports: Hx Chronic Obstructive Pulmonary Disease (COPD) - 4L home O2, Hx Pneumonia, Other Respiratory Problems/Disorders Denies: Hx Asthma History: Reports: Other Problems/Disorders - chronic renal insufficiency Musculoskeletal History: Reports: Hx Arthritis - LOWER BACK Sensory History: Denies: Hx Contacts or Glasses, Hx Hearing Aid Opthamlomology History: Denies: Hx Contacts or Glasses Psychiatric History: Denies: Hx Panic Disorder - Cancer History Cancer Type, Location and Year: Cervical 2016, hysterectomy performed, was curative Hx Chemotherapy: No Hx Radiation Therapy: No - Surgical History Surgery Procedure, Year, and Place: CAROTID ARTERY STENT 2009 AT [place]; lap hysterectomy at [facility] [place] Hx Anesthesia Reactions: No - Immunization History Date of Tetanus Vaccine: unknown Date of Influenza Vaccine: 2015 - Family History Known Family History: Positive: Other - POS: CA, throat - Social History Alcohol Use: None Substance Use Type: Reports: None Hx Tobacco Use: Yes Smoking Status (MU): Former Smoker Type: Cigarettes Amount Used/How Often: 1 PPD Length of Time of Smoking/Using Tobacco: 40 YRS. Have You Smoked in the Last Year: Yes Review of Systems Negative: Fever Positive: Shortness Of Breath. Negative: Cough Musculoskeletal: Negative - pain All Other Systems Reviewed And Are Negative: Yes Physical Exam - Summary Physical Exam Summary: VITAL SIGNS: Reviewed. GENERAL: Patient is a well-developed and nourished female who is lying comfortable in the stretcher. Patient is not in any acute respiratory distress. HEAD AND FACE: No signs of trauma. No ecchymosis, hematomas or skull depressions. No sinus tenderness. EYES: PERRLA, EOMI x 2, No injected conjunctiva, no nystagmus. EARS: Hearing grossly intact. Ear canals and tympanic membranes are within normal limits. MOUTH: Oropharynx within normal limits. NECK: Supple, trachea is midline, no adenopathy, no JVD, no carotid bruit, no c- spine tenderness, neck with full ROM. CHEST: Symmetric, no tenderness at palpation LUNGS: decreased breath sounds bilaterally, minimal expiratory wheezes CVS: Regular rate and rhythm, S1 and S2 present, no murmurs or gallops appreciated. ABDOMEN: Soft, non-tender. No signs of distention. No rebound no guarding, and no masses palpated. Bowel sounds are normal. EXTREMITIES: FROM in all major joints, no edema, no cyanosis or clubbing. NEURO: Alert and oriented x 3. No acute neurological deficits. Speech is normal and follows commands. SKIN: Dry and warm Triage Information Reviewed: Yes Vital Signs Reviewed: Yes Diagnostics - Laboratory Result Diagrams: 10/28/17 20:10 10/28/17 20:10 Lab Statement: Any lab studies that have been ordered have been reviewed, and results considered in the medical decision making process. - Radiology CXR Radiology Interpretation Completed By: Radiologist - MILD CARDIOMEGALY. COPD. ED physician has reviewed this radiology report. - EKG 193 Cardiac Rate: NL EKG Rhythm: Sinus Rhythm - at 96 BPM EKG Interpretation: Normal axis. Normal interval. No ischemic changes Course/Dx - Course Assessment/Plan: This patient is a 72 year old F BIBA to [facility] accompanied by her family with a chief complaint of SOB since 1400 this afternoon. The patient rates the pain 0/10 in severity. Patient denies cough, pain , and fever. Pt is not on prednisone. An EKG reveals Normal axis. Normal interval. No ischemic changes. CXR reveals, per radiologist, MILD CARDIOMEGALY. COPD. Test results with no significant abnormalities except for WBC of 16, Hgb of 8.9, PPT of 19, BUN of 43, creatinine of 1.91, BNP of 201, and trop of 0.07. In the ED course the patient was given solu-medrol, Duoneb, and albuterol. We discussed patient care with Dr. Dinero and they accpeted for admission. Patient will be admitted for COPD. The patient is agreeable with this plan. - Diagnoses Provider Diagnoses: COPD (chronic obstructive pulmonary disease) - Physician Notifications Discussed Care of Patient With: Zak Dinero Time Discussed With Above Provider: 21:05 Instructed by Provider To: Admit As Inpatient Discharge - Sign-Out/Discharge Documenting (check all that apply): Discharge/Admit/Transfer - Admitted to [facility] [place] - Discharge Plan Condition: Fair Disposition: ADMITTED TO [facility] Referrals: Prosper Holbrook MD [Primary Care Provider] - The documentation as recorded by the Margi brower Gabriel accurately reflects the service I personally performed and the decisions made by , Ric Gonzalez MD.
[2017-10-28] MEDS: Albuterol 2.5 MG/3 ML NEB.SOL* (0.083%) INH SCH ×2 (22:18→22:24)
[2017-10-28] MEDS ORDERED: Furosemide IV* 10 MG/ML VIAL (40 MG) IV SLOW PU ONE (22:56)
[2017-10-28] MEDS ORDERED: Ondansetron INJ* 2 MG/ML VIAL IV PRN (22:56)
[2017-10-28] MEDS ORDERED: Acetaminophen TAB* 325 MG PO PRN (22:56)
[2017-10-28] MEDS: Albuterol/Ipratropium NEB.SOL* Albuterol 2.5 MG/Ipratropium 0.5 MG 3 ML INH SCH (23:18)
[2017-10-29] MEDS: cefTRIAXone(*) 1 GM in NS 0.9% 50 ML* 50 ML IVPB SCH ×2 (00:43→23:15)
[2017-10-29] MEDS: Azithromycin IV(*) 500 MG in NS 0.9% 250 ML* 250 ML IVPB SCH ×2 (00:53→23:15)
[2017-10-29 01:11] LABS: Urine Appearance Clear; Urine Blood 1+ (Negative); Urine Color Yellow; Urine Ketones Negative (Negative); Urine Protein Negative (Negative); Urine Specific Gravity 1.008 (1.010-1.030); Urine Urobilinogen Negative (Negative)
[2017-10-29] MEDS: Albuterol/Ipratropium NEB.SOL* Albuterol 2.5 MG/Ipratropium 0.5 MG 3 ML INH SCH ×6 (02:30→23:23)
[2017-10-29] MEDS: Albuterol 2.5 MG/3 ML NEB.SOL* (0.083%) INH PRN (05:30)
[2017-10-29] MEDS: Diltiazem TAB* 30 MG PO SCH ×3 (05:37→17:45)
[2017-10-29] MEDS: Heparin VIAL(*) 5000 UNITS/ML VIAL (FIVE THOUSAND) SUBCUT SCH ×3 (05:37→21:44)
[2017-10-29 06:01] LABS: ABS Basophils 0.1 10^3/ul (0-0.2); ABS Eosinophils 0 10^3/ul (0-0.6); ABS Lymphocytes 0.7 10^3/ul (1.0-4.8); ABS Monocytes 0.2 10^3/ul (0-0.8); ABS Neutrophils 13.5 10^3/ul (1.5-7.7); ABS Nucleated RBC 0 10^3/ul; Eosinophil % 0.1 % (0-6); Hematocrit 26 % (35-47); Hemoglobin 8.5 g/dl (12.0-16.0); Mean Corpuscular HGB Conc 33 g/dl (31-36); Mean Corpuscular Hemoglobin 30 pg (27-31); Mean Corpuscular Volume 91 fL (80-97); Nucleated Red Blood Cells % 0; Platelet Count 240 10^3/ul (150-450); Red Blood Count 2.84 10^6/ul (4.0-5.4); Red Cell Distribution Width 15 % (10.5-15); White Blood Count 14.5 10^3/ul (3.5-10.8)
[2017-10-29 06:05] LABS: INR 0.97 (0.77-1.02)
--- NOTE | 2017-10-29 06:36 | HP ---
CC: Dr. Holbrook * HISTORY AND PHYSICAL: DATE OF ADMISSION: 10/28/17 PRIMARY CARE PROVIDER: Dr. Holbrook. ATTENDING PHYSICIAN WHILE IN THE HOSPITAL: Zak Dinero MD * (report dictated by Sathya Borjas NP) CHIEF COMPLAINT: Shortness of breath. HISTORY OF PRESENT ILLNESS: Ms. Lambert is a 72-year-old female patient with multiple medical problems. She has a history of severe COPD, on chronic 4 L of oxygen. In addition to this, also carries history of diastolic heart failure, hypertension, hyperlipidemia, VEENA, PVD, CKD, history of GI bleed, CVA, history of anemia, history of NSTEMI and history of uterine cancer, status post hysterectomy. She is coming into our ER today. She said about 2 days ago she had eaten some potato chips and gold fish and then became swollen to her lower extremities. She said that she had been feeling well, breathing, had been doing okay until around 1400 tonight, the breathing got much worse. She said that she still was not puffy and had not gained any weight to her knowledge. She said she has gained about 10 pounds since she was here in March. She says that she had no swelling of her abdomen. No vomiting. No chest pain. She says she was having dyspnea on exertion. Denies having any chest pain and there was no report of orthopnea or nocturnal dyspnea but the breathing definitely got worse around 1400 today. There have been no recent car trips, travel. No leg pain. She was concerned. There have been no recent reports of URI symptoms. No fevers, no cold. No coughing with shortness of breath. There has been no sputum production or rhinorrhea. No congestion. No sore throat. There has been no recent sick contacts that was reported, but there was concern because her breathing just was not getting any better. She was really short of breath despite taking breathing treatments at home, so she decided to come into the emergency department today to be evaluated. He was evaluated in the ED. Initially, there was concern for COPD exacerbation, so we were asked to evaluate for admission. PAST MEDICAL HISTORY: Significant for: 1. Hypertension. 2. Hyperlipidemia. 3. Severe COPD, on 4 L of oxygen at all times. 4. CKD. 5. VEENA. 6. PVD. 7. History of GI bleed. 8. CHF. Last echo was done in January 2017 which showed an EF greater than 65%, but she did have abnormal diastolic function. 9. CVA. 10. She has a history of anemia. 11. NSTEMI. 12. Uterine cancer. PAST SURGICAL HISTORY: 1. She has had a carotid endarterectomy of the right carotid. 2. Hysterectomy. ALLERGIES TO MEDICATIONS: Include no known drug allergies. FAMILY HISTORY: Mother of accidental . Father had a history of AAA. SOCIAL HISTORY: She is a former smoker. She quit smoking in the fall of January 2017. No history of EtOH abuse. Surrogate decision maker is her daughter, Joann. REVIEW OF SYSTEMS: There is no documented fever. She does admit to having gaining about 10 pounds since being here in March. She denies having any double vision. No ear discharge. There is no rhinorrhea. No sore throat. No thyroid enlargement. She denies having any chest pain. There is shortness of breath. No reports of orthopnea or nocturnal dyspnea. There was no abdominal pain. No nausea, no vomiting, no dysuria, no frequency, no seizure, no loss of consciousness, no pruritus, no skin ulcerations. Review of 14 systems completed , all others negative. PHYSICAL EXAMINATION GENERAL: At this time, Ms. Lambert is a 72-year-old female patient. She is chronically ill appearing. She is sitting in the ED stretcher. She initially did not appear to be in acute distress, but just moving her, sitting her up forward in bed, she became tachypneic and her work of breathing did increase. VITAL SIGNS: Blood pressure 143/57, pulse 94, respirations were 20, O2 sat 100 % on 4 L, temperature was 99.6. HEENT: Head: Atraumatic, normocephalic. Eyes: EOMs are intact. Sclerae anicteric, not pale. Throat: Oral mucosa appears to be moist. No oropharyngeal erythema. NECK: Supple. LUNGS: She did have wheezing noted in the lower bases bilaterally. She had equal diaphragmatic expansion. She had crackles in the mid lung dunlap. HEART: Sounds S1, S2. Regular rate and rhythm. ABDOMEN: Soft, flat, nontender. Bowel sounds were present. EXTREMITIES: Pulses were 2+ throughout. The patient had no peripheral edema. She is moving all 4 extremities with 5/5 strength. NEUROLOGIC: She is awake, she is alert, she is oriented x3. Her tongue is midline. Business Intelligence Analyst were equal. She had no gross focal deficits. SKIN: Intact. DIAGNOSTIC STUDIES/LAB DATA: Labs revealed WBC of 16.0, RBC of 3.01, hemoglobin of 8.9, hematocrit of 28. When we look back, her hemoglobin does run right around this 8.9 range. Her INR was 0.87. PTT 19. Sodium was 139, potassium 5, chloride 104, bicarb 28, BUN 42, creatinine 1.91. Looking back, she looks right around that, that is where she looks. Glucose 125, lactic 1, calcium 9.5, total bili 0.2, AST 35, ALT 42, alk phos 140. Troponin 0.07 that is where she runs. CRP is 6.82. BNP 201. Albumin of 3.7. Urine pending. She did have a chest x-ray obtained today. When I reviewed it, to me, it looks like she does have some pulmonary vascular congestion. Radiology read it as mild cardiomegaly, COPD. She did have an EKG obtained today. This does show a normal sinus rhythm. She does have ST depression in V4, 5, and 6. When we looked previously, she has had that previously. No T wave inversions were noted. A little bit of depression in leads 1 and aVL, again seen on previous EKGs, appeared to be unchanged. She did have an echo, which showed abnormal diastolic function and an EF greater than 65%. Old medical records were reviewed. ASSESSMENT AND PLAN: Ms. Lambert is a 72-year-old female patient with a complex medical history, coming into the emergency department today with complaints of shortness of breath. She was evaluated here today. There was concern for chronic obstructive pulmonary disease exacerbation. We were asked to evaluate for admission. She will be admitted under inpatient status for: 1. Shortness of breath. Again, etiology at this point is not clear. I am concerned that given the fact she had dietary indiscretion 2 days ago she certainly could have flared her congestive heart failure and she may be having diastolic failure. Her BNP is not the highest it has ever been, but it is certainly abnormal and again in chronic kidney disease, the BNP may not be that reliable but with her history and the fact that the breathing got worse just today and she did have some swelling, I think she deserves Lasix for blood pressure. The last one in the ED was 170/80. I would like to go ahead and give her 80 of IV Lasix. I am going to go ahead and put her on Vapotherm because with minimal movement, she got very short of breath. I would like to be aggressive. If blood pressure does not come down and work of breathing increases, I may consider adding nitrate but I would like to see how the Lasix works. I do agree with going ahead and putting her on nebs. She was wheezing. She does have this white count, which could just be a leukemoid reaction from the dyspnea. I am going to bynum culture her, check a procalcitonin. I did order antibiotics. I will also put her on nebs and inhaled steroids. I am not going to use systemic steroids just yet. I will see how she declares herself for the time being. I will cycle her troponins. It is mildly elevated, but this could just be secondary to demand ischemia. 2. Hypertension. I will continue her meds. I did change them from the delayed release formulation to immediate release formulation while she is acutely ill. 3. Hyperlipidemia. Continue statin therapy. 4. History of non-ST elevation myocardial infarction. Continue her meds as prescribed. She is on statin, beta-georgette, aspirin, and Plavix therapy. 5. Obstructive sleep apnea. She is not compliant with CPAP. 6. Chronic kidney disease. Creatinine is right at her baseline. We will follow this particularly in the setting of giving IV Lasix. 7. History of severe chronic obstructive pulmonary disease. Again, I am going to go ahead and put her on nebs, standing Dulera, and put her on Vapotherm. 8. History of peripheral vascular disease. Continue aspirin, statin, beta- georgette therapy. 9. History of anemia. H and H is stable. Continue her iron. 10. History of congestive heart failure. She may have exacerbation currently. We will give her Lasix and see how she improves. 11. History of anemia. Again, follow H and H. 12. DVT prophylaxis. She is high risk. I am putting her on heparin subcu. We will monitor H and H closely in the setting of this. 13. Code status. She is full code. 14. Fluids, electrolytes, nutrition. I did order a heart healthy diet. TIME SPENT: Time spent on the admission was 60 minutes; greater than half the time was spent [id number] with the patient obtaining my history and physical, other half time was spent going over the plan of care with the patient and implementing plan of care. I did discuss the plan of care with my attending, Dr. Dinero, he is in agreement. SATHYA BORJAS, AUTOMOBILE GLASS TECHNICIAN [id number]/CPS #: [id number] [place]
[2017-10-29 06:43] LABS: EGFR Non-African American 23.3 (>60)
[2017-10-29] MEDS: Mometasone/Formoter 200/5 MDI INH SCH ×2 (07:46→19:46)
[2017-10-29] MEDS: Losartan TAB* 25 MG PO SCH (08:06)
[2017-10-29] MEDS: Atorvastatin* 20 MG TAB PO SCH (08:06)
[2017-10-29] MEDS: Metoprolol Tartrate TAB* 50 mg PO SCH ×2 (08:06→21:44)
[2017-10-29] MEDS: Aspirin EC TAB* 81 MG TAB.EC PO SCH (08:06)
[2017-10-29] MEDS: Gabapentin CAP(*) 100 MG PO SCH ×2 (08:06→21:45)
[2017-10-29] MEDS: Clopidogrel TAB* 75 MG PO SCH (08:06)
[2017-10-29] MEDS: Montelukast Sodium TAB* 10 MG PO SCH (08:07)
[2017-10-29] MEDS: Furosemide IV* 10 MG/ML VIAL (40 MG) IV SLOW PU SCH (08:07)
[2017-10-29] MEDS ORDERED: predniSONE TAB* 20 MG PO ONE (10:50)
--- NOTE | 2017-10-29 12:05 | PN ---
Progress Note - Progress Note Date of Service: 10/29/17 Note: CRITICAL CARE MEDICINE Date: 10/29/17 Time: 1015 SUBJECTIVE: Patient seen and examined. PHYSICAL EXAM: Vital Signs: Reviewed. Neurologic: communicating well HEENT: pupils equal. Sclera anicteric. Trachea midline. Cardiovascular: distant, S1 S2 Respiratory: left > right wheeze, exacerbated with forced exhale. no cough Abdomen: Soft, obese, nt. No r/g/r. Extremities: Warm. Access: piv LABS: Reviewed. IMAGING: Reviewed. cxr cardiomegaly, copd, no infiltrate. ECG, similar to past ones with nonspecific ST deperessions MEDICATIONS: Reviewed. ASSESSMENT: 72 F Acute on chronic hypoxic and hypercarbic resp failure COPD exacerbation Component of acute on chronic diastolic heart failure sec to above CKD 3-4 VEENA non-adherent PLAN: Neurologic: tolerable. Cardiovascular: perfusing. no cp. vol status could be a touch up vs euvolemic. allow her to equilibrate without forcing further diuresis. mild demand ischemia and is for echo to ensure no new changes, but may prove more prognostic for her. Respiratory: non-adherent with nocturnal resp rx, and in past has been comatose sec to such with exacerbation. Seems like heat plus obesity and diet was main trigger here and was able to rescue with flow needs and now weaning back off. she was able to mobilize some fluid but lungs likely sequestered diastolic water and now equilibrating. non new cough but wheeze present and may still have some bronchitis component and risk/benefit can have a quick pulse course of steroids (not high dose) to help her overcome. copd adjunctives. Gastrointestinal: po Renal/Metabolic: cr higher then normal. diet and veena rx non-adherence not helping. care with arb. try not to hurt with steroids and lasix. Infectious Disease: no infective burden. hold off on abx Hematology: asa, plavix. stable. Endocrine: steroid pulse. glucose may be up with steroids. ssi for now. Musculoskeletal: oob. pt if needed Psych/Social: pt lives alone and social work eval Supportive and preventative care as ordered. SUP: add H2 with steroid course VTE prophylaxis: heparin Disposition: ICU today, and likely floor later today or tomorrow Code Status: Full presently Critical Care Time: 35min Jarrett Kc DO
[2017-10-29] MEDS: NON FORMULARY MED* (Iron Polysaccharide Complex [Ferrex 150] 150 MG) PO SCH (13:19)
--- NOTE | 2017-10-29 15:15 | ECHO ---
Patient: JYOTI MONTES [facility] Rec#: [id number] : 1945 Date: 10/29/2017 Age: 72y Height: 157.5 cm / 62.0 in Weight: 72.6 kg / 160.0 lbs Sex: F BSA: 1.7 Room#: ICU 3 Admit Date#: 10/28/2017 Type: Inpatient Referring: Sathya Borjas NP Reading: Edna Gooden MD Investment Fund Manager: Shawna Davis RN RDCS CC: Prosper Holbrook MD Transthoracic Echocardiogram Indication: CHF, SOB BP: 137/53 HR: 89 Rhythm: NSR Findings History: CHF, HTN, HLD, COPD with home oxygen, carotid artery stent 2015. Technical Comments: The study is technically limited due to patient body habitus. The study is technically limited due to the patient's history of COPD. Completed at 1155. Left Ventricle: The left ventricular chamber size is normal. Mild to moderate concentric left ventricular hypertrophy is observed. Global left ventricular wall motion and contractility are within normal limits. The left ventricle appears hyperdynamic.Mild dagger shape of LVOT velocities. The estimated ejection fraction is greater than 65%. Abnormal left ventricular diastolic filling is observed, consistent with impaired relaxation. Left Atrium: The left atrium is mildly dilated. Right Ventricle: The right ventricle wall thickness is moderately increased. The right ventricular cavity size is normal. The right ventricular global systolic function is normal. Right Atrium: The right atrium is mildly dilated. Aortic Valve: The aortic valve structure is not well visualized. The aortic valve leaflets are mildly thickened. There is no evidence of aortic regurgitation. There is no evidence of aortic stenosis. Mitral Valve: There is mitral annular calcification. The mitral valve leaflets are mildly thickened. There is a trace of mitral regurgitation. There is no evidence of mitral stenosis. Tricuspid Valve: The tricuspid valve leaflets are normal. There is trace tricuspid regurgitation. Unable to estimate the right ventricular systolic pressure. There is no tricuspid stenosis. Pulmonic Valve: The pulmonic valve structure is not well visualized. There is trace to mild pulmonic regurgitation. There is no pulmonic stenosis. Pericardium: There is no significant pericardial effusion. A pericardial fat pad is visualized. Aorta: The ascending aorta is not well visualized. The aortic arch is not well visualized. There is no dilation of the aortic root. Pulmonary Artery: The main pulmonary artery is not well visualized. Venous: The inferior vena cava appears normal in size. There is a greater than 50% respiratory change in the inferior vena cava dimension. Conclusions The study is technically difficult but adequate for evaluation. Mild to moderate concentric left ventricular hypertrophy is observed. The left ventricle appears hyperdynamic.Mild dagger shape of LVOT velocities, no evidence of LVOT obstruction at rest. The estimated ejection fraction is greater than 65%. Abnormal left ventricular diastolic filling is observed, consistent with impaired relaxation. The right ventricular global systolic function is normal. The aortic valve leaflets are mildly thickened with normal function. There is a trace of mitral regurgitation. There is trace tricuspid regurgitation. Compared with prior echo of 02/17/17, ventricular function is stable and valvular function is stable. Measurements Name Value Normal Range RVDdMajor (2D) 2.6 cm (2.2 - 4.4) RVAW (2D) 1 cm (0.2 - 0.5) RAd ISD 4CH 5.1 cm (3.4 - 4.9) RA (A4C)W 3.2 cm (2.9 - 4.6) IVSd (2D) 1.3 cm (0.6 - 1) LVPWd (2D) 1.3 cm (0.6 - 1) LVIDd (2D) 4.8 cm (3.6 - 5.4) Aortic Annulus 1.9 cm (1.4 - 2.6) Ao root diameter (2D) 2.6 cm (2.1 - 3.5) LA dimension (AP) 2D 4 cm (2.3 - 3.8) LAd ISD 4CH 5.7 cm (2.9 - 5.3) LA ISD 4CH W 4.1 cm (2.5 - 4.5) Name Value Normal Range LA ESV SP 4CH (A/L) 62 ml - LA ESV SP 2CH (A/L) 71 ml - LA ESV BP (A/L) 67 ml - LA ESV BP (A/L) index 38.4 ml/m2 - LA ESV SP 4CH (MOD) 60 ml - LA ESV SP 2CH (MOD) 69 ml - Name Value Normal Range MV E-wave Vmax 1.4 m/sec - MV deceleration time 234 msec - MV A-wave Vmax 1.6 m/sec - MV E:A ratio 0.84 ratio - LV septal e' Vmax 0.07 m/sec - LV lateral e' Vmax 0.08 m/sec - LV E:e' septal ratio 20 ratio - LV E:e' lateral ratio 17.5 ratio - Name Value Normal Range AV Vmax 1.8 m/sec - AV VTI 34.4 cm - AV peak gradient 12.2 mmHg - AV mean gradient 6.7 mmHg - LVOT Vmax 1.6 m/sec - LVOT VTI 35.9 cm - LVOT peak gradient 9.9 mmHg - LVOT mean gradient 5.4 mmHg - Name Value Normal Range MV Vmax 1.8 m/sec - MV VTI 41.2 cm - MV peak gradient 12.6 mmHg - MV mean gradient 5.7 mmHg - MV PHT 58.4 msec - MVA (PHT) 3.8 cm2 - Name Value Normal Range IVC diameter 1.7 cm - Name Value Normal Range PV Vmax 1.4 m/sec -
[2017-10-29] MEDS: CMCS Melatonin (NF) 3 MG TAB PO SCH (21:43)
[2017-10-30] MEDS: Albuterol/Ipratropium NEB.SOL* Albuterol 2.5 MG/Ipratropium 0.5 MG 3 ML INH SCH ×4 (03:25→20:14)
[2017-10-30] MEDS: Diltiazem TAB* 30 MG PO SCH ×4 (03:28→17:35)
[2017-10-30] MEDS: Heparin VIAL(*) 5000 UNITS/ML VIAL (FIVE THOUSAND) SUBCUT SCH ×3 (06:07→21:40)
[2017-10-30 07:01] LABS: EGFR Non-African American 22.7 (>60)
[2017-10-30] MEDS: Mometasone/Formoter 200/5 MDI INH SCH ×2 (07:20→20:27)
[2017-10-30] MEDS: NON FORMULARY MED* (Iron Polysaccharide Complex [Ferrex 150] 150 MG) PO SCH (08:27)
[2017-10-30 08:28] LABS: Hematocrit 26 % (35-47); Hemoglobin 8.3 g/dl (12.0-16.0); Mean Corpuscular HGB Conc 32 g/dl (31-36); Mean Corpuscular Hemoglobin 30 pg (27-31); Mean Corpuscular Volume 92 fL (80-97); Platelet Count 240 10^3/ul (150-450); Red Blood Count 2.81 10^6/ul (4.0-5.4); Red Cell Distribution Width 15 % (10.5-15); White Blood Count 24.9 10^3/ul (3.5-10.8)
[2017-10-30] MEDS: Metoprolol Tartrate TAB* 50 mg PO SCH ×2 (08:40→21:40)
[2017-10-30] MEDS: Montelukast Sodium TAB* 10 MG PO SCH (08:40)
[2017-10-30] MEDS: Losartan TAB* 25 MG PO SCH (08:40)
[2017-10-30] MEDS: predniSONE TAB* 20 MG PO SCH (08:40)
[2017-10-30] MEDS: Atorvastatin* 20 MG TAB PO SCH (08:40)
[2017-10-30] MEDS: Gabapentin CAP(*) 100 MG PO SCH ×2 (08:40→21:40)
[2017-10-30] MEDS: Aspirin EC TAB* 81 MG TAB.EC PO SCH (08:41)
[2017-10-30] MEDS: Famotidine TAB* 20 MG PO SCH (08:41)
[2017-10-30] MEDS: Clopidogrel TAB* 75 MG PO SCH (08:41)
[2017-10-30] MEDS: Furosemide IV* 10 MG/ML VIAL (40 MG) IV SLOW PU SCH (08:41)
[2017-10-30 09:23] LABS: ABS Basophils 0.1 10^3/ul (0-0.2); ABS Eosinophils 0 10^3/ul (0-0.6); ABS Lymphocytes 1.7 10^3/ul (1.0-4.8); ABS Monocytes 1.5 10^3/ul (0-0.8); ABS Neutrophils 21.6 10^3/ul (1.5-7.7); ABS Nucleated RBC 0 10^3/ul; Eosinophil % 0 % (0-6); Lymphocyte % 6.6 % (25-47); Nucleated Red Blood Cells % 0
--- NOTE | 2017-10-30 15:08 | PN ---
Subjective Date of Service: 10/30/17 Interval History: Patient seen and examined at bedside. Denies fever, chills, chest discomfort, N/ V/D. Pt states that her shortness of breath has improved since admission, but is still not back to her baseline. Tele: Sinus rhythm, rate 50-70's Family History: Unchanged from Admission Social History: Unchanged from Admission Past Medical History: Unchanged from Admission Objective Active Medications: Acetaminophen (Tylenol Tab*) 650 mg PO Q4H PRN Reason: FEVER/PAIN Albuterol (Ventolin 2.5 Mg/3 Ml Neb.Olamide*) 2.5 mg INH Q2H PRN Reason: SOB/ WHEEZING Albuterol/Ipratropium (Duoneb (Albuterol 2.5 Mg/Ipratropium 0.5 Mg)) 1 neb INH [id number] [facility] Aspirin (Aspirin Ec Tab*) 81 mg PO DAILY [facility] Atorvastatin Calcium (Lipitor*) 20 mg PO DAILY [facility] Clopidogrel Bisulfate (Plavix Tab*) 75 mg PO DAILY [facility] Diltiazem HCl (Cardizem Tab*) 30 mg PO Q6HR [facility] Famotidine (Pepcid Tab*) 20 mg PO DAILY [facility] Stop: 11/01/17 09:01 Ferrous Sulfate (Ferrous Sulfate Tab*) 325 mg PO BID WITH MEALS [facility] Furosemide (Lasix Iv*) 40 mg IV SLOW PU DAILY [facility] Gabapentin (Neurontin Cap(*)) 100 mg PO DAILY [facility] Gabapentin (Neurontin Cap(*)) 200 mg PO BEDTIME [facility] Heparin Sodium (Porcine) (Heparin Vial(*)) 5,000 units SUBCUT Q8HR [facility] Ceftriaxone Sodium 1 gm/ (Sodium Chloride) 50 mls @ 200 mls/hr IVPB Q24H [facility] Azithromycin 500 mg/ Sodium (Chloride) 250 mls @ 250 mls/hr IVPB Q24H [facility] Losartan Potassium (Cozaar Tab*) 100 mg PO DAILY [facility] Melatonin (Melatonin (Nf)) 3 mg PO BEDTIME [facility] Metoprolol Tartrate (Lopressor Tab*) 50 mg PO Q12HR [facility] Mometasone Furoate/Formoterol Fumar (Dulera 200/5 Mdi*) 2 puff INH BID [facility] Montelukast Sodium (Singulair Tab*) 10 mg PO DAILY [facility] Ondansetron HCl (Zofran Inj*) 4 mg IV Q6H PRN Reason: NAUSEA Prednisone (Deltasone Tab*) 20 mg PO DAILY [facility] Stop: 11/01/17 09:01 Vital Signs - 8 hr 10/30/17 10/30/17 10/30/17 07:23 08:00 08:40 Pulse Rate 67 Respiratory 18 20 18 Rate O2 Sat by Pulse 100 Oximetry 10/30/17 13:26 Pulse Rate 64 Respiratory 16 Rate O2 Sat by Pulse 99 Oximetry Oxygen Devices in Use Now: Nasal Cannula - 4L Appearance: NAD, laying in bed Ears/Nose/Mouth/Throat: Mucous Membranes Moist Respiratory: Symmetrical Chest Expansion and Respiratory Effort, Clear to Auscultation Cardiovascular: NL Sounds; No Murmurs; No JVD, RRR Abdominal: NL Sounds; No Tenderness; No Distention Extremities: No Edema Skin: No Rash or Ulcers Neurological: Alert and Oriented x 3, NL Muscle Strength and Tone Lines/Tubes/Other Access: Clean, Dry and Intact Peripheral IV - site benign Nutrition: Taking PO's Result Diagrams: 10/30/17 08:19 10/30/17 06:27 Microbiology and Other Data: Microbiology 10/29/17 00:46 Urine Culture - Preliminary Urine Escherichia Coli 10/29/17 00:00 Nasal Screen MRSA (PCR)([facility]) - Final Nasal Mrsa Not Detected Assess/Plan/Problems-Billing Assessment: Ms. Lambert is a 72 yo female with PMH significant for HTN, HLD, COPD, chronic hypoxic respiratory failure on home O2, CKD, VEENA, PVD, CHD, CVA, anemia, CAD, and uterine cancer who presented to the emergency room with shortness of breath. - Patient Problems (1) Shortness of breath Code(s): R06.02 - SHORTNESS OF BREATH SNOMED Code(s): 461016118 Comment: - Improving - Suspect multifactoral, including COPD and CHF exacerbations - See below (2) Acute on chronic diastolic heart failure Code(s): I50.33 - ACUTE ON CHRONIC DIASTOLIC (CONGESTIVE) HEART FAILURE SNOMED Code(s): 587183802 Comment: - Concern for acute on chronic diastolic CHF - Diuresed and now appears euvolemic - Strict I+O's and daily weights - Change IV Lasix to PO in AM (3) COPD exacerbation Code(s): J44.1 - CHRONIC OBSTRUCTIVE PULMONARY DISEASE W (ACUTE) EXACERBATION SNOMED Code(s): 139636331351653 Comment: - Improving - Back to baseline O2 requirements - Continue steroids, ceftriaxone, azithromycin and nebs (4) Acute on chronic respiratory failure with hypoxia Code(s): J96.21 - ACUTE AND CHRONIC RESPIRATORY FAILURE WITH HYPOXIA SNOMED Code(s): 02079864 Comment: - The patient is now fairly close to baseline - She continues on her usual 4L supplemental O2, has been weaned off vapotherm - Continue standing nebs and dulera (symbicort at home), and prednisone (5) UTI (urinary tract infection) Comment: - Afebrile, continues to have leukocytosis (suspect increased secondary to steroids) - Urine culture with 100 k e coli - Continue Ceftriaxone (6) CAD (coronary artery disease) Code(s): I25.10 - ATHSCL HEART DISEASE OF [place] CORONARY ARTERY W/O ANG PCTRS SNOMED Code(s): 95581624 Comment: - Denies chest pain at this time - Continue statin, beta-georgette, ASA and plavix (7) Anemia Code(s): D64.9 - ANEMIA, UNSPECIFIED SNOMED Code(s): 960993876 Comment: - Normocytic, dating back to 07/2016 - EGD done 12/16 did not reveal any source of bleed - Continue Iron and continue to monitor (8) Hyperkalemia Code(s): E87.5 - HYPERKALEMIA SNOMED Code(s): 09219420 Comment: - Suspect secondary to CKD - Will recheck in the AM (9) VEENA (obstructive sleep apnea) Code(s): G47.33 - OBSTRUCTIVE SLEEP APNEA (ADULT) (PEDIATRIC) SNOMED Code(s): 54307140 Comment: - Untreated, non-compliant with CPAP (10) Stage III chronic kidney disease Code(s): N18.3 - CHRONIC KIDNEY DISEASE, STAGE 3 (MODERATE) SNOMED Code(s): 723364745 Comment: - Creatinine near baseline, Stage III-IV but slighly higher - Suspect elevated creatinine secondary to diuretics - Avoid nephrotoxic medications - Continue to monitor (11) HTN (hypertension) Code(s): I10 - ESSENTIAL (PRIMARY) HYPERTENSION SNOMED Code(s): 45636581 Comment: - Normotensive, SBP 110-140's - Continue Cardizem and metoprolol (12) HLD (hyperlipidemia) Code(s): E78.5 - HYPERLIPIDEMIA, UNSPECIFIED SNOMED Code(s): 30553013 Comment: - Continue statin (13) Lung nodule Current Visit: No Status: Acute Code(s): R91.1 - SOLITARY PULMONARY NODULE SNOMED Code(s): 573304439 Comment: - Outpt PET, showed no increased metabolic activity, 05/2017 (14) DVT prophylaxis Code(s): VGE9766 - SNOMED Code(s): 826729791 Comment: - SQ heparin (15) Full code status Code(s): Z78.9 - OTHER SPECIFIED HEALTH STATUS SNOMED Code(s): 521311614 Status and Disposition: Inpatient. Discharge to home when medically stable, possibly in 1-2 days.
[2017-10-30] MEDS: Ferrous Sulfate TAB* 325 MG PO SCH (17:35)
[2017-10-30] MEDS: CMCS Melatonin (NF) 3 MG TAB PO SCH (21:40)
[2017-10-30] MEDS: Azithromycin IV(*) 500 MG in NS 0.9% 250 ML* 250 ML IVPB SCH (22:26)
[2017-10-31] MEDS: cefTRIAXone(*) 1 GM in NS 0.9% 50 ML* 50 ML IVPB SCH ×2 (00:09→21:44)
[2017-10-31] MEDS: Diltiazem TAB* 30 MG PO SCH ×4 (00:10→17:43)
[2017-10-31] MEDS: Albuterol/Ipratropium NEB.SOL* Albuterol 2.5 MG/Ipratropium 0.5 MG 3 ML INH SCH ×5 (01:06→23:20)
[2017-10-31 05:23] LABS: ABS Basophils 0.1 10^3/ul (0-0.2); ABS Eosinophils 0 10^3/ul (0-0.6); ABS Lymphocytes 1.9 10^3/ul (1.0-4.8); ABS Monocytes 1.3 10^3/ul (0-0.8); ABS Neutrophils 13.8 10^3/ul (1.5-7.7); ABS Nucleated RBC 0 10^3/ul; Eosinophil % 0.1 % (0-6); Hematocrit 25 % (35-47); Lymphocyte % 11.1 % (25-47); Mean Corpuscular HGB Conc 32 g/dl (31-36); Mean Corpuscular Hemoglobin 30 pg (27-31); Mean Corpuscular Volume 93 fL (80-97); Mean Platelet Volume 9.2 um3 (7.4-10.4); Nucleated Red Blood Cells % 0; Platelet Count 226 10^3/ul (150-450); Red Blood Count 2.65 10^6/ul (4.0-5.4); Red Cell Distribution Width 15 % (10.5-15); White Blood Count 17.1 10^3/ul (3.5-10.8)
[2017-10-31 05:39] LABS: EGFR Non-African American 21.9 (>60)
[2017-10-31] MEDS: Heparin VIAL(*) 5000 UNITS/ML VIAL (FIVE THOUSAND) SUBCUT SCH ×3 (05:51→20:54)
[2017-10-31] MEDS: Losartan TAB* 25 MG PO SCH (08:08)
[2017-10-31] MEDS: Ferrous Sulfate TAB* 325 MG PO SCH ×2 (08:08→17:43)
[2017-10-31] MEDS: Famotidine TAB* 20 MG PO SCH (08:08)
[2017-10-31] MEDS: Furosemide TAB* 40 MG PO SCH (08:09)
[2017-10-31] MEDS: Atorvastatin* 20 MG TAB PO SCH (08:09)
[2017-10-31] MEDS: Metoprolol Tartrate TAB* 50 mg PO SCH ×2 (08:09→20:54)
[2017-10-31] MEDS: Montelukast Sodium TAB* 10 MG PO SCH (08:09)
[2017-10-31] MEDS: predniSONE TAB* 20 MG PO SCH (08:09)
[2017-10-31] MEDS: Aspirin EC TAB* 81 MG TAB.EC PO SCH (08:09)
[2017-10-31] MEDS: Gabapentin CAP(*) 100 MG PO SCH ×2 (08:09→20:52)
[2017-10-31] MEDS: Clopidogrel TAB* 75 MG PO SCH (08:09)
[2017-10-31] MEDS: Mometasone/Formoter 200/5 MDI INH SCH ×2 (08:49→19:11)
--- NOTE | 2017-10-31 11:37 | PN ---
Subjective Date of Service: 10/31/17 Interval History: Patient was seen and examined at bedside. Reports persistent SOB with minimal exertion. Denies dysnea at rest, wheezing, chest pain, fever or chills. She lives alone at home, does not feel she is ready for discharge quiet yet. Family History: Unchanged from Admission Social History: Unchanged from Admission Past Medical History: Unchanged from Admission Objective Active Medications: Acetaminophen (Tylenol Tab*) 650 mg PO Q4H PRN PRN Reason: FEVER/PAIN Albuterol (Ventolin 2.5 Mg/3 Ml Neb.Olamide*) 2.5 mg INH Q2H PRN PRN Reason: SOB/WHEEZING Last Admin: 10/29/17 05:30 Dose: 2.5 mg Albuterol/Ipratropium (Duoneb (Albuterol 2.5 Mg/Ipratropium 0.5 Mg)) 1 neb INH [id number] AWAKE [facility] Last Admin: 10/31/17 07:15 Dose: 1 neb Aspirin (Aspirin Ec Tab*) 81 mg PO DAILY [facility] Last Admin: 10/31/17 08:09 Dose: 81 mg Atorvastatin Calcium (Lipitor*) 20 mg PO DAILY [facility] Last Admin: 10/31/17 08:09 Dose: 20 mg Clopidogrel Bisulfate (Plavix Tab*) 75 mg PO DAILY [facility] Last Admin: 10/31/17 08:09 Dose: 75 mg Diltiazem HCl (Cardizem Tab*) 30 mg PO Q6HR [facility] Last Admin: 10/31/17 05:51 Dose: 30 mg Famotidine (Pepcid Tab*) 20 mg PO DAILY [facility] Stop: 11/01/17 09:01 Last Admin: 10/31/17 08:08 Dose: 20 mg Ferrous Sulfate (Ferrous Sulfate Tab*) 325 mg PO BID WITH MEALS [facility] Last Admin: 10/31/17 08:08 Dose: 325 mg Furosemide (Lasix Tab*) 40 mg PO DAILY [facility] Last Admin: 10/31/17 08:09 Dose: 40 mg Gabapentin (Neurontin Cap(*)) 100 mg PO DAILY [facility] Last Admin: 10/31/17 08:09 Dose: 100 mg Gabapentin (Neurontin Cap(*)) 200 mg PO BEDTIME [facility] Last Admin: 10/30/17 21:40 Dose: 200 mg Heparin Sodium (Porcine) (Heparin Vial(*)) 5,000 units SUBCUT Q8HR [facility] Last Admin: 10/31/17 05:51 Dose: 5,000 units Ceftriaxone Sodium 1 gm/ (Sodium Chloride) 50 mls @ 200 mls/hr IVPB Q24H [facility] Last Admin: 10/31/17 00:09 Dose: 200 mls/hr Azithromycin 500 mg/ Sodium (Chloride) 250 mls @ 250 mls/hr IVPB Q24H [facility] Last Admin: 10/30/17 22:26 Dose: 250 mls/hr Losartan Potassium (Cozaar Tab*) 100 mg PO DAILY [facility] Last Admin: 10/31/17 08:08 Dose: 100 mg Melatonin (Melatonin (Nf)) 3 mg PO BEDTIME [facility] Last Admin: 10/30/17 21:40 Dose: 3 mg Metoprolol Tartrate (Lopressor Tab*) 50 mg PO Q12HR [facility] Last Admin: 10/31/17 08:09 Dose: 50 mg Mometasone Furoate/Formoterol Fumar (Dulera 200/5 Mdi*) 2 puff INH BID [facility] Last Admin: 10/31/17 08:49 Dose: 2 puff Montelukast Sodium (Singulair Tab*) 10 mg PO DAILY [facility] Last Admin: 10/31/17 08:09 Dose: 10 mg Ondansetron HCl (Zofran Inj*) 4 mg IV Q6H PRN PRN Reason: NAUSEA Prednisone (Deltasone Tab*) 20 mg PO DAILY [facility] Stop: 11/01/17 09:01 Last Admin: 10/31/17 08:09 Dose: 20 mg Vital Signs - 8 hr 10/31/17 10/31/17 10/31/17 07:17 07:19 07:31 Temperature 98.6 F Pulse Rate 60 62 Respiratory 18 24 20 Rate Blood Pressure 117/50 (mmHg) O2 Sat by Pulse 100 100 Oximetry 10/31/17 10/31/17 08:09 08:50 Temperature Pulse Rate 70 Respiratory 20 18 Rate Blood Pressure (mmHg) O2 Sat by Pulse 90 Oximetry Oxygen Devices in Use Now: Nasal Cannula - 90% saturation on 4L/min Appearance: Appears comfortable, breathing a little labored, but in NAD. Eyes: No Scleral Icterus, PERRLA Ears/Nose/Mouth/Throat: Clear Oropharnyx, Mucous Membranes Moist Neck: NL Appearance and Movements; NL JVP, Trachea Midline Respiratory: Symmetrical Chest Expansion and Respiratory Effort, - - Some accessory muscle use noted. Breath sounds diminshed throughout. No wheezes or rhonchi. Cardiovascular: NL Sounds; No Murmurs; No JVD, RRR Abdominal: NL Sounds; No Tenderness; No Distention Extremities: No Edema Skin: No Rash or Ulcers Neurological: Alert and Oriented x 3, NL Sensation, NL Muscle Strength and Tone Nutrition: Taking PO's Result Diagrams: 10/31/17 04:59 10/31/17 04:59 Additional Lab and Data: . Microbiology and Other Data: Microbiology 10/29/17 00:46 Urine Culture - Preliminary Urine Escherichia Coli 10/29/17 00:00 Nasal Screen MRSA (PCR)([facility]) - Final Nasal Mrsa Not Detected Diagnostic Imaging: . EKG Data: . Assess/Plan/Problems-Billing Assessment: Ms. Lambert is a 72 yo female with PMH significant for HTN, HLD, COPD, chronic hypoxic respiratory failure on home O2, CKD, VEENA, PVD, CHD, CVA, anemia, CAD, and uterine cancer who presented to the emergency room with shortness of breath. - Patient Problems (1) COPD exacerbation Current Visit: Yes Status: Acute Priority: High Comment: - Improving - Back to baseline O2 requirements - Continue steroids, ceftriaxone, azithromycin and nebs - Likely home in AM (2) Acute on chronic respiratory failure with hypoxia Current Visit: Yes Status: Acute Comment: - The patient is now fairly close to baseline - She continues on her usual 4L supplemental O2, has been weaned off vapotherm - Continue standing nebs and dulera (symbicort at home), and prednisone (3) Shortness of breath Current Visit: Yes Status: Acute Comment: - Continues to experience dyspnea with minimal exertion. - Suspect multifactoral, including COPD and CHF exacerbations - Continue management as above (4) UTI (urinary tract infection) Current Visit: Yes Status: Acute Comment: - Afebrile, continues to have leukocytosis (suspect increased secondary to steroids) - Urine culture with 100 k e coli, sensitive to cephalosporines - Continue Ceftriaxone (5) Anemia Current Visit: No Status: Acute Comment: - Normocytic, appears chronic, dating back to 07/2016 - EGD done 12/16 did not reveal any source of bleed - Continue Iron and continue to monitor (6) CAD (coronary artery disease) Current Visit: No Status: Chronic Comment: - Denies chest pain at this time - Continue statin, beta-georgette, ASA and plavix (7) HLD (hyperlipidemia) Current Visit: No Status: Chronic Comment: - Continue statin (8) HTN (hypertension) Current Visit: No Status: Chronic Comment: - Normotensive, SBP 110-140's - Continue Cardizem and metoprolol (9) DVT prophylaxis Current Visit: Yes Status: Acute Comment: - SQ heparin (10) Full code status Current Visit: Yes Status: Acute Status and Disposition: Inpatient. Discharge to home when medically stable, possibly in 1-2 days.
[2017-10-31] MEDS: Albuterol 2.5 MG/3 ML NEB.SOL* (0.083%) INH PRN (13:08)
[2017-10-31] MEDS: CMCS Melatonin (NF) 3 MG TAB PO SCH (20:54)
[2017-10-31] MEDS: Azithromycin IV(*) 500 MG in NS 0.9% 250 ML* 250 ML IVPB SCH (22:11)
[2017-11-01] MEDS: Diltiazem TAB* 30 MG PO SCH ×3 (00:29→11:55)
[2017-11-01] MEDS: Albuterol/Ipratropium NEB.SOL* Albuterol 2.5 MG/Ipratropium 0.5 MG 3 ML INH SCH ×2 (04:12→08:40)
[2017-11-01] MEDS: Heparin VIAL(*) 5000 UNITS/ML VIAL (FIVE THOUSAND) SUBCUT SCH (05:32)
[2017-11-01 05:44] LABS: ABS Basophils 0.1 10^3/ul (0-0.2); ABS Eosinophils 0.1 10^3/ul (0-0.6); ABS Lymphocytes 1.8 10^3/ul (1.0-4.8); ABS Monocytes 1.3 10^3/ul (0-0.8); ABS Nucleated RBC 0 10^3/ul; Eosinophil % 0.5 % (0-6); Hematocrit 25 % (35-47); Hemoglobin 8.1 g/dl (12.0-16.0); Lymphocyte % 12.9 % (25-47); Mean Corpuscular HGB Conc 32 g/dl (31-36); Mean Corpuscular Hemoglobin 30 pg (27-31); Mean Corpuscular Volume 94 fL (80-97); Mean Platelet Volume 9.2 um3 (7.4-10.4); Nucleated Red Blood Cells % 0; Platelet Count 208 10^3/ul (150-450); Red Blood Count 2.71 10^6/ul (4.0-5.4); Red Cell Distribution Width 15 % (10.5-15); White Blood Count 14.2 10^3/ul (3.5-10.8)
[2017-11-01] MEDS: Mometasone/Formoter 200/5 MDI INH SCH (08:42)
[2017-11-01] MEDS ORDERED: predniSONE TAB* 20 MG PO SCH (09:00)
[2017-11-01] MEDS: Furosemide TAB* 40 MG PO SCH (09:54)
[2017-11-01] MEDS: Atorvastatin* 20 MG TAB PO SCH (09:54)
[2017-11-01] MEDS: Clopidogrel TAB* 75 MG PO SCH (09:54)
[2017-11-01] MEDS: Ferrous Sulfate TAB* 325 MG PO SCH (09:54)
[2017-11-01] MEDS: Losartan TAB* 25 MG PO SCH (09:54)
[2017-11-01] MEDS: Montelukast Sodium TAB* 10 MG PO SCH (09:54)
[2017-11-01] MEDS: Famotidine TAB* 20 MG PO SCH (09:54)
[2017-11-01] MEDS: Gabapentin CAP(*) 100 MG PO SCH (09:55)
[2017-11-01] MEDS: Aspirin EC TAB* 81 MG TAB.EC PO SCH (09:55)
[2017-11-01] MEDS: Metoprolol Tartrate TAB* 50 mg PO SCH (09:55)
--- NOTE | 2017-11-01 10:34 | RAD ---
Indication: Moderate dyspnea. COPD. On home oxygen. Comparison: October 28, 2017 Technique: Dual energy PA and lateral chest views. Report: Accounting for superimposed soft tissues the lungs and pleural spaces are clear. Chronic mild prominence of the interstitial markings and patchy rarefaction of the upper lung zone interstitial markings. Elevated lung volumes. Upper normal heart size. Unremarkable central pulmonary vasculature and mediastinal contours. IMPRESSION: Stigmata of obstructive lung disease. No acute pulmonary or cardiac process evident.
[2017-11-01 12:35] VITALS: BP 143/61
--- NOTE | 2017-11-01 22:46 | DS ---
AMENDED REPORT NOW INCLUDES COSIGNER DESIGNATION - ESIGNED BEFORE ADJUSTMENT CC: Dr. Holbrook * DISCHARGE SUMMARY: DATE OF ADMISSION: 10/28/17 DATE OF DISCHARGE: 11/01/17 PATIENT OF/ADMITTING PHYSICIAN: Dr. Zak Dinero. ATTENDING HOSPITALIST: Dr. Tee Quintero.* (DICTATED BY STAS ROLON) PRIMARY CARE PROVIDER: Dr. Holbrook. ADMISSION DIAGNOSES: 1. Shortness of breath. 2. History of severe chronic obstructive pulmonary disease, on 4 L of oxygen at home at all times. 3. Hypertension. 4. Hyperlipidemia. 5. Chronic kidney disease. 6. Osteoarthritis. 7. Peripheral vascular disease. 8. History of gastrointestinal bleed. 9. Congestive heart failure with last echo done, in January of 2017, showed an ejection fraction greater than 67%. 10. Cerebrovascular accident. 11. History of anemia. 12. History of non-ST elevation myocardial infarction. 13. History of uterine cancer. DISCHARGE DIAGNOSES: 1. Shortness of breath. 2. Chronic obstructive pulmonary disease exacerbation. 3. Hypertension. 4. Hyperlipidemia. 5. Chronic kidney disease. 6. Osteoarthritis. 7. Peripheral vascular disease. 8. History of gastrointestinal bleed. 9. Congestive heart failure with last echo done, in January of 2017, showed an ejection fraction greater than 67%. 10. Cerebrovascular accident. 11. History of anemia. 12. History of non-ST elevation myocardial infarction. 13. History of uterine cancer. CONSULTATIONS: None. BRIEF MEDICAL HISTORY: Ms. Lambert is a pleasant 72-year-old female, who has multiple medical issues including severe COPD for which she has been chronically on 4 L of oxygen at home at all times. In addition, she has history of hypertension, hyperlipidemia, diastolic heart failure, peripheral vascular disease, and multiple other medical problems. She came to the emergency room on 10/28/17 complaining of worsening shortness of breath for the past 2 days. She apparently had had some potato chips and Goldfish crackers, after which she became swollen and noticed some increased lower extremity edema. She notes that she always watch what she eats with her salt intake; however, she did not think it will get that bad after eating some snacks. She reports associated difficulty breathing that gradually worsened for the past 2 days. Today, she was not feeling puffy; however, she reports increasing shortness of breath. She denied any chest pain, orthopnea, dyspnea at rest, or wheezing. She had a workup in the emergency room that showed chest x-ray revealing no evidence of infiltrate. Her oxygen saturation was low and concerning for COPD exacerbation for which we were asked to evaluate the patient to discuss admission. HOSPITAL COURSE: The patient was admitted to the hospitalist services on . She started on Solu-Medrol that was changed eventually to p.o. prednisone and started on nebulizer treatment. She continued to receive oxygen supplement and was monitored closely at the telemetry unit. She did have some lower extremity edema for which she received some Lasix in the emergency room with good resolution of her peripheral edema as well as good management of her elevated blood pressure at the time. She had some wheezing while she was in the emergency room and had some leukocytosis as well for which she was covered prophylactically with Rocephin and azithromycin. She had some blood culture drawn that eventually showed no growth. She had laboratory workup drawn on a daily basis that revealed gradual resolution of her leukocytosis from up to 24, 000 to 14,000 on discharge day, which is partially related to her prednisone use. The patient had elevated troponin which has been her baseline, but a transthoracic echocardiogram was done in the emergency room that revealed no significant motion changes and the patient continued to be asymptomatic from a chest pain perspective. She was ambulatory, out of bed and her dyspnea was getting better every day. On discharge morning, she was stable with good vital signs. Blood pressure of 143/61 and oxygen saturation was 100% on 4 L oxygen. She was afebrile with temperature of 98.5. Her lungs with decreased breath sounds at the bases, but there was no wheezing, rhonchi noted. Her heart was regular rate and rhythm without rubs, murmurs, or gallops. She will be discharged to home and finish her course of azithromycin and we will continue given her prednisone 40 mg once daily for 5 days and the plan for her to follow up with primary care physician next week. DISCHARGE MEDICATIONS: Include: 1. Albuterol MDI inhaler 1 puff q.4 hours p.r.n. for shortness of breath. 2. Aspirin 81 mg p.o. daily. 3. Lipitor 20 mg p.o. daily. 4. Azithromycin 250 mg p.o. daily x5 days. 5. Symbicort MDI 1 puff inhaled b.i.d. 6. Plavix 75 mg p.o. daily. 7. Vitamin B12 500 mcg p.o. daily. 8. Cartia XT 120 mg p.o. daily. 9. Lasix 40 mg p.o. daily. 10. Neurontin 200 mg p.o. q.h.s. 11. Neurontin 100 mg p.o. daily. 12. Avapro 300 mg p.o. daily. 13. Iron supplement 150 mg p.o. daily. 14. Metoprolol 50 mg p.o. daily. 15. Singulair 10 mg p.o. daily. 16. Prednisone 40 mg p.o. daily x5 days. 17. Spiriva inhaler 1 cap inhaled once daily. 18. Ellipta MDI 1 inhaler 62.5 mcg once daily. STAS ROLON [id number]/[facility] #: [id number] [facility]
== END 2017-11-01 13:53 | disposition home or self-care (01) | DRG 133 ==
LOC: ED 19:04 → ICU 22:51 → MEDTELE 10-30 05:34
PROVIDERS: ADMIT Hospitalist; ATTEND Student in an Organized Health Care Education/Training Program
DX: J96.22 Acute and chronic respiratory failure with hypercapnia (principal); I50.33 Acute on chronic diastolic (congestive) heart failure; J44.1 Chronic obstructive pulmonary disease with (acute) exacerbation; I13.0 Hypertensive heart and chronic kidney disease with heart failure and stage 1 through stage 4 chronic kidney disease, or unspecified chronic kidney disease; N39.0 Urinary tract infection, site not specified; Z99.81 Dependence on supplemental oxygen; N18.3 Chronic kidney disease, stage 3 (moderate); E78.5 Hyperlipidemia, unspecified; M19.90 Unspecified osteoarthritis, unspecified site; I73.9 Peripheral vascular disease, unspecified; G47.33 Obstructive sleep apnea (adult) (pediatric); J96.21 Acute and chronic respiratory failure with hypoxia; B96.20 Unspecified Escherichia coli [E. coli] as the cause of diseases classified elsewhere; D64.9 Anemia, unspecified; R91.1 Solitary pulmonary nodule; Z86.73 Personal history of transient ischemic attack (TIA), and cerebral infarction without residual deficits; I25.2 Old myocardial infarction; Z85.42 Personal history of malignant neoplasm of other parts of uterus; Z87.891 Personal history of nicotine dependence; Z84.89 Family history of other specified conditions
CPT/HCPCS: 36415; 71046; 80048; 80053; 81003; 81015; 83605; 83735; 83880; 84145; 84484; 85025; 85610; 85730; 86140; 87040; 87077; 87086; 87186; 87641; 93005; 93306; 94640; 99285; A9270-GY; J0456; J0696; J1644; J1940; J2930; J3475; J7512

== ENCOUNTER 2017-11-12 16:48 | Emergency (ER) | payer MEDICARE, OTHER ==
[2017-11-12] MEDS ORDERED: Albuterol/Ipratropium NEB.SOL* Albuterol 2.5 MG/Ipratropium 0.5 MG 3 ML INH ONE (17:12)
[2017-11-12] MEDS ORDERED: methylPREDNISolone 125 MG* 2 ML VIAL IV ONE (17:12)
--- OUTSIDE RECORDS SUMMARY | 2017-11-12 17:21 | XMS REPORT ---
:1945 External Reference #:[id number] Author Organization [facility] Address [address] [place] [address] [place] [address] Phone [phone] Care Team Providers Name Role Phone Prosper Holbrook MD Primary Care Physician Unavailable Payers Type Date Identification Numbers Payment Provider Subscriber Medicare Primary Expires: Policy Number: Medicare Abby Lambert 2017 [id number] PayID: [id number] [address] [place] [address] Medigap Part B Expires: 2016 Policy Number: [employer] Abby Lambert [id number] [facility] PayID: [id number] [place] [address] [address] [place] [address] Commercial Effective: Policy Number: Overblog Abby Lambert 2015 [id number] (Oon) Expires: 2015 Group Number: [id number] [address] [address] Group Name: [place] [address] PayID: [id number] Medigap Part B Policy Number: [id number] [employer] Medicare Abby Lambert PayID: [id number] [address] [place] [address] Problems Date Description Provider Status Onset: 06/01/2013 Degeneration of lumbar intervertebral Guido Mitchell M.D. Active disc Onset: 12/14/2014 Tobacco user [place] [facility] Schedule Active Onset: 01/25/2015 Pre-surgery evaluation Eunice Funk MD Active Onset: 01/25/2015 Chronic obstructive lung disease Eunice Funk MD Active Onset: 11/03/2015 Disturbance in sleep behavior Eunice Funk MD Active Onset: 11/03/2015 Obesity Eunice Funk MD Active Onset: 11/23/2015 Full respiratory system examination Eunice Funk MD Active Onset: 01/05/2016 Obstructive sleep apnea syndrome Eunice Funk MD Active Family History Date Family Member(s) Problem(s) Comments General Cancer mother, sister General Diabetes sister General Chronic Obstructive Pulmonary father Disease (COPD) General Emphysema father Father due to unrelated to () cardiac issues Mother due to unrelated to () cardiac issues Siblings 3 2 sisters, 1 brother 1 sister cardiac stents, still living 1 sister [place] 2014 still living 1 brother, cardiac issues, still living Social History Type Date Description Comments Marital Status Lives With Alone Occupation Retired ETOH Use Denies alcohol use Smoking Patient is a former smoker smoked 1PPD for 30 years Recreational Drug Use Denies Drug Use Daily Caffeine sporadically not daily Daily Caffeine Consumes on average 1 cup of half the caffeine regular coffee per day Exercise Type/Frequency Exercises rarely Allergies, Adverse Reactions, Alerts Date Description Reaction Status Severity Comments 08/22/2015 NKDA active 02/04/2013 Spiriva inactive Medications Medication Date Status Form Strength Qnty SIG Indications Ordering Provider Sera LOPEZ 11/06 Active Caps ER 120mg 90cap 1 by mouth Qutayb 24HR s every day Belinda Campos M.D. Incruse Ellipta 09/05 Active Aerosol 62.5mcg/I 30uni inhale one J44.9 nh ts puff by sofia Funk MD every day Symbicort 01/25 Active Aerosol 160-4.5mc 30.6g inhale one J44.9 g/Act m puff by sofia Funk MD twice daily Aspirin Active Tablets 81mg 1 po qd / DR Avapro Active Tablets 300mg 30tab 1 po qd s Toprol XL Active Tablets 25mg 90tab 2 tabs po ER 24HR s qd Nebulizer Active Device use for albuterol nebulized solution up to 4 times a day. Gabapentin Active Capsules 100mg 2 po qd @ Unknown /0000 hs Ventolin HFA Active Aerosol 108(90Bas 1 puff po Darlow, /0000 e) as needed Prosper Siegel, mcg/Act Iron Active Tablets 325(65Fe) 1 by mouth Unknown mg every day Voltaren Active Gel 1% apply 2 Unknown grams twice daily as needed for pain in back Oxygen Active Misc please use o2 at 3 liters Clopidogrel Active Tablets 75mg 1 by mouth Unknown Bisulf every day Montelukast Sodium Active Tablets 10mg 1 by mouth Unknown every day Lasix Active Tablets 40mg 1 by mouth Unknown every day Nicotine Polacrilex 06/07 Hx Lozenges 4mg 60uni 1 by mouth F17.210 ts every 4 Blessing, - hours as 11/01 needed Nicotine 06/07 Hx Patches 21mg/24HR 30uni 1 patch F17.210 24HR ts over skin Blessing, - every day 11/01 ( pt not use) Irbesartan 06/06 Hx Tablets 300mg 1 by mouth every day - 06/07 Prednisone 03/29 Hx Tablets 20mg 7tabs 20mg daily J44.9 Blessing, - 06/06 Spiriva Respimat 03/29 Hx Aerosol 2.5mcg/Ac 4unit inhale two J44.9 t s spray(s) Blessing, - by mouth 11/05 once daily /2017 Hydrochlorothiazide Hx Tablets 12.5mg 90tab 1 po qd Unknown / s - 03/16 Flovent HFA Hx Aerosol 44mcg/Act 2 puffs po Unknown /0000 bid - 12/05 Tramadol HCL Hx Tablets 50mg 100ta qid prn Unknown / bs - 11/30 Pro Air Hx Aerosol 108(90Bas 1unit 2 puffs po Unknown /0000 e) s qid prn - mcg/Act 08/20 Lovastatin Hx Tablets 20mg 90tab 1 po qd Unknown / s - 03/16 Fish Oil Hx 1 po qd Unknown /0000 - 09/30 Duoneb 00/ Hx Solution 0.5-2.5(3 bid. up to Unknown /0000 )mg/3ML tid prn in - nebulizer 12/05 Immunizations CPT Code Status Date Vaccine Lot # [id number] Given 06/07/2015 Fluvirin Im 3Yrs And Older Vital Signs Date Vital Result Comment 11/06/2017 Height 60 inches 5'0" Weight 172.00 lb Heart Rate 84 /min BP Systolic Sitting 152 mmHg BP Diastolic Sitting 72 mmHg O2 % BldC Oximetry 98 % 4L O2 cont BMI (Body Mass Index) 33.6 kg/m2 09/05/2017 Height 60 inches 5'0" Weight 167.00 lb Heart Rate 72 /min BP Systolic Sitting 118 mmHg BP Diastolic Sitting 66 mmHg Respiratory Rate 14 /min O2 % BldC Oximetry 97 % on 4L BMI (Body Mass Index) 32.6 kg/m2 05/20/2017 Height 60 inches 5'0" Weight 158.00 lb Heart Rate 84 /min BP Systolic Sitting 126 mmHg BP Diastolic Sitting 72 mmHg Respiratory Rate 14 /min O2 % BldC Oximetry 99 % on 3L BMI (Body Mass Index) 30.9 kg/m2 03/17/2017 Height 60 inches 5'0" Weight 150.12 lb Heart Rate 72 /min BP Systolic Sitting 120 mmHg BP Diastolic Sitting 64 mmHg Respiratory Rate 14 /min O2 % BldC Oximetry 99 % 4L BMI (Body Mass Index) 29.3 kg/m2 11/25/2016 Height 61 inches 5'1" Weight 163.00 lb Heart Rate 70 /min BP Systolic Sitting 128 mmHg BP Diastolic Sitting 78 mmHg Respiratory Rate 26 /min O2 % BldC Oximetry 88 % O2 via NC @ 3LPM BMI (Body Mass Index) 30.8 kg/m2 10/01/2016 Height 61 inches 5'1" Weight 160.50 lb with shoes Heart Rate 62 /min BP Systolic Sitting 126 mmHg LA lrg cuff BP Diastolic Sitting 86 mmHg LA lrg cuff BMI (Body Mass Index) 30.3 kg/m2 Ejection Fraction >70% echo 12/14/14 01/05/2016 Height 61 inches 5'1" Weight 151.00 lb Heart Rate 72 /min BP Systolic 118 mmHg BP Diastolic 72 mmHg Respiratory Rate 14 /min O2 % BldC Oximetry 93 % BMI (Body Mass Index) 28.5 kg/m2 11/23/2015 Height 61 inches 5'1" Weight 151.00 lb Heart Rate 74 /min BP Systolic 102 mmHg BP Diastolic 78 mmHg Respiratory Rate 14 /min O2 % BldC Oximetry 90 % BMI (Body Mass Index) 28.5 kg/m2 11/17/2015 Height 61 inches 5'1" Weight 151.00 lb with shoes Heart Rate 70 /min BP Systolic Sitting 90 mmHg LA lrg cuff BP Diastolic Sitting 60 mmHg LA lrg cuff BP Systolic Standing 108 mmHg LA lrg cuff BP Diastolic Standing 60 mmHg LA lrg cuff Respiratory Rate 15 /min BMI (Body Mass Index) 28.5 kg/m2 Ejection Fraction >70% 11/17/2015 Ejection Fraction >70% date 12/14/14 ECHO 11/03/2015 Height 61 inches 5'1" Weight 144.00 lb Heart Rate 76 /min BP Systolic 114 mmHg BP Diastolic 68 mmHg Respiratory Rate 16 /min O2 % BldC Oximetry 95 % BMI (Body Mass Index) 27.2 kg/m2 09/06/2015 Height 61 inches 5'1" Weight 144.00 lb Heart Rate 75 /min BP Systolic 112 mmHg BP Diastolic 64 mmHg Respiratory Rate 14 /min O2 % BldC Oximetry 91 % BMI (Body Mass Index) 27.2 kg/m2 08/22/2015 Height 61 inches 5'1" Weight 144.00 lb with shoes Heart Rate 76 /min BP Systolic Sitting 100 mmHg LA reg cuff BP Diastolic Sitting 60 mmHg LA reg cuff Respiratory Rate 17 /min BMI (Body Mass Index) 27.2 kg/m2 Ejection Fraction >70% date 12/14/2014 ECHO 06/07/2015 Height 61 inches 5'1" Weight 140.00 lb Heart Rate 88 /min BP Systolic Sitting 128 mmHg BP Diastolic Sitting 72 mmHg Respiratory Rate 18 /min O2 % BldC Oximetry 91 % BMI (Body Mass Index) 26.4 kg/m2 03/29/2015 Height 61 inches 5'1" Weight 140.00 lb Heart Rate 64 /min BP Systolic Sitting 122 mmHg BP Diastolic Sitting 58 mmHg Respiratory Rate 22 /min O2 % BldC Oximetry 89 % BMI (Body Mass Index) 26.4 kg/m2 01/25/2015 Height 61 inches 5'1" Weight 136.38 lb Heart Rate 81 /min BP Systolic 118 mmHg BP Diastolic 60 mmHg Respiratory Rate 28 /min Body Temperature 98.6 F O2 % BldC Oximetry 94 % BMI (Body Mass Index) 25.8 kg/m2 01/06/2015 Height 61 inches 5'1" Weight 138.75 lb w/ shoes Heart Rate 70 /min BP Systolic Sitting 132 mmHg LA, reg BP Diastolic Sitting 68 mmHg LA, reg BMI (Body Mass Index) 26.2 kg/m2 Ejection Fraction 89% 12/29/14 NLM 12/06/2014 Height 61 inches 5'1" Weight 140.00 lb Heart Rate 74 /min BP Systolic Sitting 110 mmHg LA, reg BP Diastolic Sitting 60 mmHg LA, reg Respiratory Rate 16 /min BMI (Body Mass Index) 26.4 kg/m2 02/04/2013 Height 61 inches 5'1" Weight 141.00 lb BP Systolic 122 mmHg BP Diastolic 68 mmHg Pain Level 3 lower back BMI (Body Mass Index) 26.6 kg/m2 Results Test Date Test Result H/L Range Note Laboratory test 05/16/2017 Point of Care Glucose 110 mg/dL High 70-100 1 finding Order 11/25/2016 6 Minute Walk <pending> Order 12/14/2014 Echocardiogram <pending> Lyme Western Blot 11/19/2009 Lyme Igg Western Blot Negative Negative Specialty Lyme Igg Bands Detected No bands detecte <SEE NOTE> kDa () 2 Lyme Igm Western Blot Negative Negative Lyme Igm Bands Detected No bands detecte <SEE NOTE> kDa () 3 Lyme Disease Interpretation . () 4 1 Stamp Mounter: [id number] 2 No bands detected 3 No bands detected 4 Specific serologic response to B. burgdorferi infection is not detected, but cannot rule out early infection during which low or undetectable antibody levels to B. burgdorferi may be present. If clinically indicated, a new serum specimen should be submitted in 7-14 days. CDC criteria require >=5 bands for IgG or >=2 bands for IgM for the Western blot to be considered positive. Bands (e.g.,p41) may be detected in patients without Lyme disease, and patterns not meeting the CDC criteria should be interpreted with caution. Western blot should be ordered only on specimens that are positive or equivocal by a FDA-licensed Lyme disease antibody screening test (e.g., EIA). Test Performed by: [facility] [address] [place] [address] Load Out Worker: Eleazar Monzon III, M.D. Procedures Date CPT Code Description Status 11/06/2017 95655 EKG Tracing & Interpretation Completed 10/29/2017 70539 ECHO Transthorasic Realtime 2D W Doppler & Color Completed [facility] 02/17/2017 98765 ECHO Transthorasic Realtime 2D W Doppler & Color Completed [facility] 02/17/2017 60487 EKG, Interpretation Only Completed 02/16/2017 69693 EKG, Interpretation Only Completed 02/06/2017 73437 EEG Recording In Coma Or Sleep Only Completed 02/06/2017 78056 ECHO Transthorasic Realtime 2D W Doppler & Color Completed [facility] 12/10/2016 04600 ECHO Transthorasic Realtime 2D W Doppler & Color Completed [facility] 11/25/2016 18229 Pulmonary Stress Test Simple Completed 10/01/2016 31923 EKG Tracing & Interpretation Completed 12/06/2015 40893 Polysomnography Sleep Staging 4+ Parameters Completed 11/17/2015 49164 EKG Tracing & Interpretation Completed 08/22/2015 16144 EKG Tracing & Interpretation Completed 01/25/2015 45524 Pulmonary Stress Test Simple Completed 12/29/2014 72884 Treadmill Interp/Report Only Completed 12/29/2014 09504 Stress Test Supervsn W/Out I/R Completed 12/14/2014 39472 ECHO Transthoracic, Real-Time 2D With Doppler And Color Completed Flow 12/08/2014 58077 Pulmonary Function><Bronchodil Completed 12/06/2014 67679 EKG Tracing & Interpretation Completed Encounters Type Date Location Provider CPT E/M Dx Office Visit 11/01/2017 [facility] ,yenifer Johnson, 82529 J96.21 9:15a Hospitalists PA Olivier96.22 J44.9 I50.33 Office Visit 10/31/2017 9:14a [facility] Samantha Johnson, 47466 J96.21 Assoc,pc Hospitalists STAS J96.22 J44.9 I50.33 Office Visit 10/30/2017 [facility] Lilia Bhatia, 31297 J96.21 9:13a Assoc,pc [facility] Hospitalists J96.22 J44.9 I50.33 Office Visit 10/29/2017 9:12a [facility] Richard Kc D.O. 39815 J96.21 J96.22 J44.9 I50.33 Office Visit 10/28/2017 9:12a [facility], Norman Borjas, 61348 J44.9 Hospitalists N.P. I50.33 I10 E78.5 Office Visit 09/05/2017 9:00a [facility] [place] [address] J44.9 Services Of [employer] Officer J96.10 G47.33 J98.4 E66.09 Office Visit 05/20/2017 7:15a [facility] [place] [address] J44.9 Services Of [employer] Officer J96.10 R91.1 Office Visit 03/17/2017 9:30a [facility] [place] [address] J44.9 Services Of [employer] Officer J96.21 J96.22 Office Visit 03/09[facility]2017 [facility] [address] J96.21 Ass, Hospitalists Micheal J96.22 J81.0 I50.33 Office Visit 03/09/2017 3:09p [facility], [place] [address] J44.1 Hospitalists R41.82 J43.9 J96.02 Office Visit 03/08/2017 3:08p [facility], [place] [address] J96.22 Hospitalists J96.21 N17.8 N18.3 Office Visit 03/07/2017 7:00a [facility], Richard Cohen 07047 J96.21 Hospitalists Roly Kc J96.22 J81.0 I50.33 Office Visit 02/26/2017 8:28p [facility], Clarissa Lopez, 92664 J44.1 Hospitalists N.P. J96.11 I21.4 Office Visit 02/25/2017 8:27p [facility], Clarissa Lopez, 82385 J44.1 Hospitalists N.PJose J96.11 I21.4 Office Visit 02/24/2017 8:26p [facility] Kelly Goldberg, 16323 I21.4 Hospitalists Roly J44.1 J96.11 Office Visit 02/23/2017 8:26p [facility] [address] I21.4 Hospitalists J44.1 J96.11 Office Visit 02/22/2017 8:25p [facility] [address] I21.4 Hospitalists J44.1 J96.11 Office Visit 02/21/2017 12:08p [facility] Edna Gooden M.D. 43003 I25.10 [facility] Office Visit 02/21/2017 8:25p [facility], [place] [address] I21.4 Hospitalists J44.1 J96.11 Office Visit 02/20/2017 1:38p [facility] Leonortaybchris Campos, 48288 I21.4 M.DJose J44.1 N18.9 D64.9 Office Visit 02/20/2017 8:24p [facility], [place] [address] I21.4 Hospitalists J44.1 J96.11 Office Visit 02/19/2017 1:36p [facility] Leonortaybeh SJose Campos, 78836 I21.4 M.DJose I50.9 J44.1 D64.9 Office Visit 02/19/2017 8:24p [facility] Candi Encarnacion, 97508 I21.4 Hospitalists J44.1 J96.11 Office Visit 02/18/2017 2:49p [facility] Rajeev Jiang, 14728 I21.4 M.DJose Office Visit 02/18/2017 8:23p [facility],[place] [address] I21.4 Hospitalists J44.1 J96.11 Office Visit 02/17/2017 8:22p [facility],[place] [address] I21.4 Hospitalists J44.1 J96.11 Office Visit 02/16/2017 8:22p [facility] [address] I21.4 Hospitalists J44.1 J96.11 Office Visit 02/16/2017 12:46p [facility] Yadile Grant M.D. 73195 I21.4 I12.9 N18.9 J44.1 J18.9 I47.2 R94.31 I31.3 I50.9 Office Visit 02/14/2017 [facility] Meléndezefrain Bhatia, 85827 J96.01 7:13a Assoc,pc [employer] Hospitalists J96.22 J44.1 I10 Office Visit 02/13/2017 [facility] Rodrigues Jannette, 04197 J96.01 7:12a Assoc,pc [employer] Hospitalists J96.22 J44.1 I10 Office Visit 02/12/2017 [facility] Meléndezefrain Bhatia, 74724 J96.01 7:12a Assoc,pc [employer] Hospitalists J96.22 J44.1 I10 Office Visit 02/11/2017 8:00a [facility] Mariusz Herson-Noe, 65211 J96.01 Assoc,pc PA Hospitalists J96.22 J44.1 I10 Office Visit 02/10/2017 7:56a [facility] Mariusz Trinia-Noe, 33018 J96.01 Assoc,pc PA Hospitalists J96.22 J44.1 I10 Office Visit 02/09/2017 7:56a [facility] Mariusz Trinia-Noe, 10923 J96.01 Assoc,pc PA Hospitalists J96.22 J44.1 I10 Office Visit 02/09/2017 9:01a [facility] [place] [address] J96.22 Services Of [facility] J96.21 J44.1 J18.9 Office Visit 02/08/2017 7:55a [facility] Mariuszgabe Beltran, 13686 J96.01 Assoc,pc PA Hospitalists J96.22 J44.1 I10 Office Visit 02/08/2017 10:41a [facility] [address] J96.22 Hospitalists J96.21 J44.1 J18.9 Office Visit 02/07/2017 10:45a [facility] [address] J96.22 Hospitalists J96.21 J18.9 Office Visit 02/06/2017 7:54a [facility] Richard Kc, 48821 J44.1 Hospitalists D.OJose J96.22 J96.01 Office Visit 02/06/2017 7:53a [facility] Gerardo Brennan, 06431 J44.1 Hospitalists Micheal E78.5 I10 Office Visit 02/05/2017 7:52a [facility] Norman Indio, 35012 J44.1 Hospitalists NJosePJose E78.5 I10 Office Visit 12/11/2016 9:56a [facility], Kelly Goldberg, 51421 K92.2 Hospitalists D.OJose J43.9 I73.9 N18.9 Office Visit 12/10/2016 9:55a [facility], [place] [address] K92.2 Hospitalists I73.9 J43.9 N18.9 Office Visit 11/25/2016 9:30a [facility] Eunice Funk [place] G9695 J44.9 Services Of [facility] G47.33 R09.02 Z99.81 Office Visit 10/01/2016 9:00a [facility] Belinda Campos, 57394 G47.33 MOlive J44.9 I10 F17.210 E66.09 E78.4 Office Visit 01/12/2016 11:04a [facility] [place] [address] J44.9 Services Of [employer] Officer G47.33 Office Visit 01/12/2016 3:40p [facility], [place] [address] J44.9 Hospitalists N18.3 I10 Z72.0 Office Visit 01/11/2016 3:39p [facility], [place] [address] J44.9 Hospitalists N18.3 I10 Z72.0 Office Visit 01/11/2016 11:03a [facility] [place] [address] J44.9 Services Of [facility] G47.33 Office Visit 01/05/2016 10:00a [facility] [place] [address] G47.33 Services Of [facility] E66.09 J44.9 Office Visit 11/17/2015 2:00p [facility] Huber Trevino 61544 J44.9 [facility] Micheal Campos G47.9 F17.210 I10 E78.4 Z01.810 Z30.2 Office Visit 11/03/2015 9:15a [facility] [place] [address] J44.9 Services Of [facility] G47.9 F17.210 E66.09 Office Visit 09/06/2015 10:00a [facility] [place] [address] J44.9 Services Of [facility] F17.210 Office Visit 08/22/2015 2:00p [facility] Bel[facility] Campos 23758 J44.9 M.D. F17.210 I10 E78.4 Office Visit 06/07/2015 3:30p [facility] [place] [address] J44.9 Services Of [employer] Officer F17.210 Office Visit 03/29/2015 9:15a [facility] [place] [address] J44.9 Services Of [facility] F17.210 Z01.818 Office Visit 01/25/2015 11:00a [facility] [place] [address] V72.84 Services Of [facility] 496 305.1 Office Visit 01/06/2015 10:40a [facility] Wandachris Campos 99293 401.1 M.D. V72.83 272.4 305.1 496 Office Visit 12/06/2014 10:20a [facility] Huber Campos 71421 401.9 M.D. 272.4 305.1 V72.83 786.05 Office Visit 02/04/2013 3:00p Neurosurgery Services Guido Mitchell, 65829 722.52 Of [facility] Micheal Office Visit 11/21/2009 12:30a [facility] Assoc,yenifer Viramontes M.D. 01071 434.91 Hospitalists 401.9 272.4 Office Visit 11/20/2009 1:15a [facility] Assismael,yenifer Viramontes M.D. 39550 434.91 Hospitalists 401.9 272.4 Office Visit 11/19/2009 12:45a [facility] Assismael,yenifer Viramontes M.D. 42351 434.91 Hospitalists 401.9 272.4 Office Visit 11/18/2009 [facility] Viramontes M.D[facility] 93730 434.91 Hospitalists Plan of Care Future Appointment(s):03/11/2018 10:30 am - Eunice Funk MD at [facility]11/06/2017 - Huber Campos M.D.J96.21 Acute and chronic respiratory failure with murjynnV42.9 Chronic obstructive pulmonary disease, rafuowqcybsE84.33 Acute on chronic diastolic (congestive) heart oobirkyG27.9 Heart failure, tltktiaaekwA99 Essential (primary) hypertensionFollow up:one yr ovE78.5 Hyperlipidemia, jnlkdfttujpT80.33 Obstructive sleep apnea (adult) (pediatric)
[2017-11-12 18:20] LABS: ABS Basophils 0.1 10^3/ul (0-0.2); ABS Eosinophils 0.1 10^3/ul (0-0.6); ABS Lymphocytes 2.5 10^3/ul (1.0-4.8); ABS Monocytes 1.2 10^3/ul (0-0.8); ABS Neutrophils 8.1 10^3/ul (1.5-7.7); ABS Nucleated RBC 0 10^3/ul; Eosinophil % 1.2 % (0-6); Hematocrit 29 % (35-47); Hemoglobin 9.3 g/dl (12.0-16.0); Lymphocyte % 20.5 % (25-47); Mean Corpuscular HGB Conc 32 g/dl (31-36); Mean Corpuscular Hemoglobin 30 pg (27-31); Mean Corpuscular Volume 93 fL (80-97); Mean Platelet Volume 8.9 um3 (7.4-10.4); Nucleated Red Blood Cells % 0; Platelet Count 227 10^3/ul (150-450); Red Blood Count 3.15 10^6/ul (4.00-5.40); Red Cell Distribution Width 15 % (10.5-15)
--- NOTE | 2017-11-12 18:23 | RAD ---
INDICATION: Shortness of breath. COMPARISON: Comparison is made with prior study from November 01, 2017. TECHNIQUE: A portable view of the chest was obtained. FINDINGS: Cardiac and mediastinal contours appear to be within normal limits. The lungs are hyperinflated and clear. No pleural effusion is seen. IMPRESSION: FINDINGS SUGGESTIVE OF COPD, NO EVIDENCE FOR ACUTE FINDING.
[2017-11-12 18:32] LABS: EGFR Non-African American 23.3 (>60)
[2017-11-12 18:43] LABS: INR 0.93 (0.77-1.02)
[2017-11-12] MEDS ORDERED: Azithromycin TAB* 250 MG PO ONE (18:59)
--- NOTE | 2017-11-12 19:11 | ED ---
Eulalia You Tenzin, scribed for Kong Ortiz MD on 11/12/17 at 1737 . Shortness of Breath - HPI Summary HPI Summary: Pt is a 72 years old BIBA to ED complaining of SOB that started around noon today. Pt denies CP, wheezes, abdominal pain, back pain or swellings in her ankles. She has O2 concentrator at her home.No aggravating and alleviating factors were noted. She is taking Zithromycin and steroids. She also has a nebulizer at home. - History of Current Complaint Chief Complaint: EDShortnessOfBreath Time Seen by Provider: 11/12/17 17:05 Hx Obtained From: Patient Onset/Duration: Still Present Associated Signs & Symptoms: Negative - Chest pain, wheezes, abdominal pain, back pain or swellings in her ankles. - Allergy/Home Medications Allergies/Adverse Reactions: Allergies Allergy/AdvReac Type Severity Reaction Status Date / Time No Known Allergies Allergy Verified 12/09/16 21:59 PMH/Surg Hx/FS Hx/Imm Hx Endocrine/Hematology History: Denies: Hx Diabetes Cardiovascular History: Reports: Hx Congestive Heart Failure, Hx Hypercholesterolemia, Hx Hypertension Denies: Hx Angina, Hx Coronary Artery Disease, Hx Myocardial Infarction, Hx Pacemaker/ICD, Hx Valvular Heart Disease Respiratory History: Reports: Hx Chronic Obstructive Pulmonary Disease (COPD) - 4L home O2, Hx Pneumonia, Other Respiratory Problems/Disorders Denies: Hx Asthma History: Reports: Other Problems/Disorders - chronic renal insufficiency Musculoskeletal History: Reports: Hx Arthritis - LOWER BACK Sensory History: Reports: Hx Contacts or Glasses Denies: Hx Hearing Aid Opthamlomology History: Reports: Hx Contacts or Glasses Psychiatric History: Denies: Hx Panic Disorder - Cancer History Cancer Type, Location and Year: Cervical 2016, hysterectomy performed, was curative Hx Chemotherapy: No Hx Radiation Therapy: No - Surgical History Surgery Procedure, Year, and Place: CAROTID ARTERY STENT 2009 AT [place]; lap hysterectomy at [facility] Hx Anesthesia Reactions: No - Immunization History Date of Tetanus Vaccine: unknown Date of Influenza Vaccine: 2016 Infectious Disease History: No Infectious Disease History: Denies: Traveled Outside the US in Last 30 Days - Family History Known Family History: Positive: Other - POS: [place], throat - Social History Alcohol Use: None Substance Use Type: Reports: None Hx Tobacco Use: Yes Smoking Status (MU): Former Smoker Type: Cigarettes Amount Used/How Often: 1 PPD Length of Time of Smoking/Using Tobacco: 40 YRS. Have You Smoked in the Last Year: Yes Review of Systems Negative: Chest Pain Respiratory: Other - negative: wheezes Positive: Shortness Of Breath Negative: Abdominal Pain Positive: Edema - Negative: swelling in ankles, Other - negative: Back pain. All Other Systems Reviewed And Are Negative: Yes Physical Exam - Summary Physical Exam Summary: General: well-appearing, no pain distress Skin: warm, color reflects adequate perfusion, dry Head: normal Eyes: EOMI, MAX ENT: normal Neck: supple, nontender Respiratory: Mild respiratory distress, scattered wheezes. Cardiovascular: RRR Abdomen: soft, nontender Bowel: present Musculoskeletal: normal, strength/ROM intact Neurological: sensory/motor intact, A&O x3 Psychological: affect/mood appropriate Triage Information Reviewed: Yes Vital Signs On Initial Exam: Initial Vitals Temp Pulse Resp BP Pulse Ox 98.6 F 80 20 139/59 99 11/12/17 17:04 11/12/17 17:04 11/12/17 17:04 11/12/17 17:04 11/12/17 17:04 Vital Signs Reviewed: Yes Skin: Positive: Skin Color Reflects Adequate Perfusion Diagnostics - Vital Signs Vital Signs Temp Pulse Resp BP Pulse Ox 11/12/17 17:05 20 11/12/17 17:04 98.6 F 80 20 139/59 99 - Laboratory Lab Results: Lab Results 11/12/17 11/12/17 11/12/17 Range/Units 18:03 18:03 18:03 WBC 12.0 H (3.5-10.8) 10^3/ul RBC 3.15 L (4.00-5.40) 10^6/ul Hgb 9.3 L (12.0-16.0) g/dl Hct 29 L (35-47) % MCV 93 (80-97) fL MCH 30 (27-31) pg MCHC 32 (31-36) g/dl RDW 15 (10.5-15) % Plt Count 227 (150-450) 10^3/ul MPV 8.9 (7.4-10.4) um3 Neut % (Auto) 67.0 (38-83) % Lymph % (Auto) 20.5 L (25-47) % [place] % (Auto) 10.4 H (0-7) % Eos % (Auto) 1.2 (0-6) % Baso % (Auto) 0.9 (0-2) % Absolute Neuts (auto) 8.1 H (1.5-7.7) 10^3/ul Absolute Lymphs (auto) 2.5 (1.0-4.8) 10^3/ul Absolute Monos (auto) 1.2 H (0-0.8) 10^3/ul Absolute Eos (auto) 0.1 (0-0.6) 10^3/ul Absolute Basos (auto) 0.1 (0-0.2) 10^3/ul Absolute Nucleated RBC 0 10^3/ul Nucleated RBC % 0 INR (Anticoag Therapy) 0.93 (0.77-1.02) APTT 31.1 (26.0-36.3) seconds Sodium 138 L (139-145) mmol/L Potassium 4.5 (3.5-5.0) mmol/L Chloride 103 (101-111) mmol/L Carbon Dioxide 28 (22-32) mmol/L Anion Gap 7 (2-11) mmol/L BUN 32 H (6-24) mg/dL Creatinine 2.09 H (0.51-0.95) mg/dL Est GFR ( Amer) 30.0 (>60) Est GFR (Non-Af Amer) 23.3 (>60) BUN/Creatinine Ratio 15.3 (8-20) Glucose 101 H (70-100) mg/dL Lactic Acid (0.5-2.0) mmol/L Calcium 9.7 (8.6-10.3) mg/dL Magnesium 2.0 (1.9-2.7) mg/dL Total Bilirubin 0.30 (0.2-1.0) mg/dL AST 13 (13-39) U/L ALT 22 (7-52) U/L Alkaline Phosphatase 94 (34-104) U/L Total Creatine Kinase 102 (10-223) U/L CK-MB (CK-2) 1.7 (0.6-6.3) ng/mL Troponin I 0.02 (<0.04) ng/mL C-Reactive Protein 6.16 H (< 5.00) mg/L B-Natriuretic Peptide ( - 100) pg/mL Total Protein 6.6 (6.4-8.9) g/dL Albumin 3.6 (3.2-5.2) g/dL Globulin 3.0 (2-4) g/dL Albumin/Globulin Ratio 1.2 (1-3) Lipase 24 (11.0-82.0) U/L TSH Pending 11/12/17 11/12/17 Range/Units 18:03 18:03 WBC (3.5-10.8) 10^3/ul RBC (4.00-5.40) 10^6/ul Hgb (12.0-16.0) g/dl Hct (35-47) % MCV (80-97) fL MCH (27-31) pg MCHC (31-36) g/dl RDW (10.5-15) % Plt Count (150-450) 10^3/ul MPV (7.4-10.4) um3 Neut % (Auto) (38-83) % Lymph % (Auto) (25-47) % [place] % (Auto) (0-7) % Eos % (Auto) (0-6) % Baso % (Auto) (0-2) % Absolute Neuts (auto) (1.5-7.7) 10^3/ul Absolute Lymphs (auto) (1.0-4.8) 10^3/ul Absolute Monos (auto) (0-0.8) 10^3/ul Absolute Eos (auto) (0-0.6) 10^3/ul Absolute Basos (auto) (0-0.2) 10^3/ul Absolute Nucleated RBC 10^3/ul Nucleated RBC % INR (Anticoag Therapy) (0.77-1.02) APTT (26.0-36.3) seconds Sodium (139-145) mmol/L Potassium (3.5-5.0) mmol/L Chloride (101-111) mmol/L Carbon Dioxide (22-32) mmol/L Anion Gap (2-11) mmol/L BUN (6-24) mg/dL Creatinine (0.51-0.95) mg/dL Est GFR ( Amer) (>60) Est GFR (Non-Af Amer) (>60) BUN/Creatinine Ratio (8-20) Glucose (70-100) mg/dL Lactic Acid 1.0 (0.5-2.0) mmol/L Calcium (8.6-10.3) mg/dL Magnesium (1.9-2.7) mg/dL Total Bilirubin (0.2-1.0) mg/dL AST (13-39) U/L ALT (7-52) U/L Alkaline Phosphatase (34-104) U/L Total Creatine Kinase (10-223) U/L CK-MB (CK-2) (0.6-6.3) ng/mL Troponin I (<0.04) ng/mL C-Reactive Protein (< 5.00) mg/L B-Natriuretic Peptide 120 H ( - 100) pg/mL Total Protein (6.4-8.9) g/dL Albumin (3.2-5.2) g/dL Globulin (2-4) g/dL Albumin/Globulin Ratio (1-3) Lipase (11.0-82.0) U/L TSH Result Diagrams: 11/12/17 18:03 11/12/17 18:03 Lab Statement: Any lab studies that have been ordered have been reviewed, and results considered in the medical decision making process. - Radiology CHEST X RAY Radiology Interpretation Completed By: Radiologist - IMPRESSION: FINDINGS SUGGESTIVE OF COPD, NO EVIDENCE FOR ACUTE FINDING. Dr. Ortiz reviewed the report. - EKG 17:26 Cardiac Rate: NL - 92 BPM EKG Rhythm: Sinus Rhythm EKG Interpretation: ST depression lateral leads is similar to her EKG on 2017. Course/Dx - Course Course Of Treatment: IMPROVED IN ED. DISCUSSED RESULTS WITH THE PATIENT AND FAMILY. DISCUSSED ADMISSION; THEY FEEL COMFORTABLE GOING HOME AND WILL RETURN IF WORSE. - Diagnoses Provider Diagnoses: COPD (chronic obstructive pulmonary disease), Bronchitis Discharge - Sign-Out/Discharge Documenting (check all that apply): Discharge/Admit/Transfer - Discharge - Discharge Plan Condition: Stable Disposition: HOME Prescriptions: Azithromycin TAB* [Zithromax TAB (Z-JONATHAN) 250 mg #6 tabs] 250 mg PO DAILY #4 tab predniSONE TAB* [Deltasone 20 MG TAB*] 40 mg PO DAILY #8 tab Patient Education Materials: Acute Bronchitis (ED), COPD (Chronic Obstructive Pulmonary Disease) (ED) Referrals: Prosper Holbrook MD [Primary Care Provider] - Additional Instructions: FOLLOW UP WITH YOUR DOCTOR. GET RECHECKED FOR ANY WORSENING OF YOUR CONDITION; CHEST PAIN, SHORTNESS OF BREATH OR QUESTIONS OR CONCERNS. - Billing Disposition and Condition Condition: STABLE Disposition: Home The documentation as recorded by the Eulalia brower Tenzin accurately reflects the service I personally performed and the decisions made by me, Kong Ortiz MD.
[2017-11-12 19:36] LABS: Urine Appearance Clear; Urine Blood Negative (Negative); Urine Color Yellow; Urine Ketones Negative (Negative); Urine Protein Negative (Negative); Urine Specific Gravity 1.014 (1.010-1.030); Urine Urobilinogen Negative (Negative)
[2017-11-12 19:53] VITALS: BP 149/68
== END 2017-11-12 19:51 | disposition home or self-care (01) ==
LOC: ED 16:48
DX: J44.9 Chronic obstructive pulmonary disease, unspecified (principal); Z87.891 Personal history of nicotine dependence
CPT/HCPCS: 36415; 71045; 80053; 81003; 82550; 82553; 83605; 83690; 83735; 83880; 84443; 84484; 85025; 85610; 85730; 86140; 93005; 96374; 99285; A9270-GY; J2930

== ENCOUNTER 2017-12-21 13:53 | Inpatient (IN) | payer OTHER ==
--- OUTSIDE RECORDS SUMMARY | 2017-12-21 14:20 | XMS REPORT ---
:1945 External Reference #:[id number] Author Organization [facility] [employer] Address [address] [place] [address] Phone [phone] Care Team Providers Name Role Phone Prosper Holbrook M.D. Primary Care Physician Unavailable Payers Type Date Identification Numbers Payment Provider Subscriber Commercial Policy Number: [id number] [employer] Abby Lambert PayID: [id number] [address] [place] [address] Problems Date Description Provider Status Onset: 10/11/2014 Moderate chronic obstructive Janessa Moran O.D. Active pulmonary disease Onset: 10/11/2014 Obstructive emphysema Janessa Moran O.D. Active Onset: 10/11/2014 Essential hypertension Janessa Moran O.D. Active Onset: 10/11/2014 Hypercholesterolemia Janessa Moran O.D. Active Onset: 10/11/2014 Cataract Janessa Moran O.D. Active Onset: 12/18/2017 Visual field defect Juan Carlos Shelton M.D. Active Onset: 12/18/2017 Arterial retinal branch occlusion Juan Carlos Shelton M.D. Active Onset: 10/11/2014 Nuclear senile cataract Janessa Moran O.D. Active Onset: 10/11/2014 Partial retinal artery occlusion Janessa Moran O.D. Active Family History Date Family Member(s) Problem(s) Comments Father No Current Problems Mother No Current Problems Social History Type Date Description Comments Marital Status Legal Status: Occupation Retired Nurse Aide ETOH Use Denies alcohol use Smoking Heavy tobacco smoker (more than 10 cigarettes/day) Recreational Drug Use Denies Drug Use Daily Caffeine Consumes on average 2 cups of regular coffee per day Allergies, Adverse Reactions, Alerts Date Description Reaction Status Severity Comments 10/11/2014 NKDA active Medications Medication Date Status Form Strength Qnty SIG Indications Ordering Provider Irbesartan 00/00/ Active Tablets 300mg Unknown 0000 Metoprolol Succinate 00/00/ Active Tablets ER 100mg Unknown ER 0000 24HR Aspirin 00/00/ Active Tablets 81mg Unknown 0000 Vitamin B12 00/ Active Tablets 100mcg Unknown 0000 Ventolin HFA / Active Aerosol 108(90Base Darlow, 0000 ) mcg/Act Prosper A M.D. Clopidogrel Bisulfate / Active Tablets 75mg Mackenzie, 0000 Silviu M.D. Gabapentin 00/ Active Capsules 100mg Darlow, 0000 Prosper A M.D. Incruse Ellipta 00/ Active Aerosol 62.5mcg/In Blessing, 0000 h Eunice M.D. Cartia XT / Active Caps ER 120mg Darlow, 0000 24HR Prosper A M.D. Symbicort 0000/ Active Aerosol 160-4.5mcg Blessing, 0000 /Act Eunice M.D. Furosemide 0000/ Active Tablets 40mg Darlow, 0000 Prosper A M.D. Atorvastatin Calcium 0000/ Active Tablets 20mg Darlow, 0000 Prosper A M.D. Montelukast Sodium 0000/ Active Tablets 10mg Darlow, 0000 Prosper A M.D. Proair HFA 00/ Hx Aerosol 108(90Base Unknown 0000 - ) mcg/Act 2017 Ipratropium / Hx Solution 0.5-2.5(3) Unknown [place]/Albuterol 0000 - mg/3ML Sulfate 2017 Lovastatin // Hx Tablets 20mg Unknown 0000 - 2017 Hydrochlorothiazide / Hx Tablets 12.5mg Unknown 0000 - 2017 Results Description No Information Procedures Date CPT Code Description Status 11/18/2017 24843 Scanning Computerized Opthalmic Diagnostic Posterior Completed Seg Retina 11/18/2017 46643 New Patient Comprehensive Exam Completed 10/11/2014 50672 Fundus Photography With Interpretation And Report Completed 10/11/2014 30831 Est Patient Comprehensive Exam Completed 10/05/2012 10059 Est Patient Comprehensive Exam Completed 10/15/2011 25433 Fundus Photography With Interpretation And Report Completed 10/15/2011 59280 Determination Of Refractive State Completed 10/15/2011 01849 New Patient Comprehensive Exam Completed Plan of Care 12/18/2017 - Juan Carlos Shelton M.D.H34.232 Retinal artery branch occlusion, left eyeComments:Smoking can increase the risk of developing or worsening any eye related disease, as well as affect your overall health. If you are a smoker , we strongly recommend that you quit.If you are not a smoker, we strongly recommend that you do not start. You have a Branch Retinal Artery Occlusion in your left eye. This occurs when the retinal arteries have become blocked by, amongst other things, fat deposits or a blood clot. You are at an increased risk of having a Branch Retinal Artery Occlusion if there has been any hardening of the arteries in the eye. Please follow any instructions given to you by Dr. Shelton.Follow up:1MONTH, GONIO At your next visit, we are not planning to dilate your eyes. However, if you have anychanges in your vision or new symptoms, there are certain situations that require us to dilate your eyes. If Dr. Shelton requests any additional testing, that may require extra time. If you have any questions before your next appointment, please call our office at .H34.231 Retinal artery branch occlusion, right eyeComments: You have a Branch Retinal Artery Occlusion in your right eye. This occurs when the retinal arterieshave become blocked by, amongst other things, fat deposits or a blood clot. You are at an increasedrisk of having a Branch Retinal Artery Occlusion if there has been any hardening of the arteries in the eye. Please follow any instructions given to you by Dr. Shelton.H25.13 Age-related nuclear cataract, bilateralComments:You have been diagnosed with cataracts. If you are happy with your vision as it is now, then we willsee you at your next scheduled appointment. If you feel like your vision is getting worse before your scheduled appointment, please call Vanessa Harrison at [phone].H53.453 Other localized visual field defect, bilateralComments:You have a visual field defect in both eyes. Further testing is often required to properly diagnose the cause of this. Please follow all of Dr. Shelton's instructions and keep all follow up appointments.
[2017-12-21 14:55] LABS: ABS Basophils 0.1 10^3/ul (0-0.2); ABS Eosinophils 0.2 10^3/ul (0-0.6); ABS Lymphocytes 1.5 10^3/ul (1.0-4.8); ABS Monocytes 0.8 10^3/ul (0-0.8); ABS Neutrophils 10.4 10^3/ul (1.5-7.7); ABS Nucleated RBC 0 10^3/ul; Eosinophil % 1.3 % (0-6); Hematocrit 27 % (35-47); Hemoglobin 8.5 g/dl (12.0-16.0); Lymphocyte % 11.3 % (25-47); Mean Corpuscular HGB Conc 32 g/dl (31-36); Mean Corpuscular Hemoglobin 30 pg (27-31); Mean Corpuscular Volume 93 fL (80-97); Nucleated Red Blood Cells % 0; Platelet Count 255 10^3/ul (150-450); Red Blood Count 2.86 10^6/ul (4.00-5.40); Red Cell Distribution Width 16 % (10.5-15); White Blood Count 12.9 10^3/ul (3.5-10.8)
--- NOTE | 2017-12-21 14:57 | ED ---
Upper Extremity Pain - HPI Summary HPI Summary: This is leonarda Garcia documenting for attending Ivon Bernard MD. This patient is a 72 year old F BIBA to ED with a chief complaint of L arm pain since 1200 today. The patient was not given anything en route but took 81mg ASA this morning and albuterol inhaler at 1330 today. The CC is described as radiating towards her back. The patient rates the pain 7/10 in severity. Symptoms aggravated by nothing. Symptoms alleviated by nothing. Patient reports increased SOB (from baseline) and MADRID. Patient denies calf pain, leg swelling, nausea, and dizziness. PMHx of mild heart attack (Mar-Jan 2017). She is on ASA and a statin. - History of Current Complaint Chief Complaint: EDGeneral Stated Complaint: DIFF. BREATHING Time Seen by Provider: 12/21/17 14:11 Hx Obtained From: Patient Onset/Duration: Started Hours Ago - at 1200 today, Still Present Timing: Constant, Lasting Hours - since 1200 today Severity Initially: Moderate - 7/10 Severity Currently: Moderate - 7/10 Pain Location: Other: - L arm radiating to her back Aggravating Factor(s): Nothing Alleviating Factor(s): Nothing Associated Signs & Symptoms: Positive: Other - Patient reports increased SOB ( from baseline) and MADRID. Patient denies calf pain, leg swelling, nausea, and dizziness. - Allergies/Home Medications Allergies/Adverse Reactions: Allergies Allergy/AdvReac Type Severity Reaction Status Date / Time No Known Allergies Allergy Verified 12/21/17 14:00 PMH/Surg Hx/FS Hx/Imm Hx Endocrine/Hematology History: Denies: Hx Diabetes Cardiovascular History: Reports: Hx Congestive Heart Failure, Hx Hypercholesterolemia, Hx Hypertension Denies: Hx Angina, Hx Coronary Artery Disease, Hx Myocardial Infarction, Hx Pacemaker/ICD, Hx Valvular Heart Disease Respiratory History: Reports: Hx Chronic Obstructive Pulmonary Disease (COPD) - 4L home O2, Hx Pneumonia, Other Respiratory Problems/Disorders Denies: Hx Asthma History: Reports: Other Problems/Disorders - chronic renal insufficiency Musculoskeletal History: Reports: Hx Arthritis - LOWER BACK Sensory History: Reports: Hx Contacts or Glasses Denies: Hx Hearing Aid Opthamlomology History: Reports: Hx Contacts or Glasses Psychiatric History: Denies: Hx Panic Disorder - Cancer History Cancer Type, Location and Year: Cervical 2016, hysterectomy performed, was curative Hx Chemotherapy: No Hx Radiation Therapy: No - Surgical History Surgery Procedure, Year, and Place: CAROTID ARTERY STENT 2010 AT [place]; [place] [facility] Anesthesia Reactions: No - Immunization History Date of Tetanus Vaccine: unknown Date of Influenza Vaccine: 2016 Infectious Disease History: No Infectious Disease History: Denies: Traveled Outside the [place] in Last 30 Days - Family History Known Family History: Positive: Other - POS: [place], throat - Social History Alcohol Use: None Substance Use Type: Reports: None Hx Tobacco Use: Yes Smoking Status (MU): Former Smoker Type: Cigarettes Amount Used/How Often: 1 PPD Length of Time of Smoking/Using Tobacco: 40 YRS. Have You Smoked in the Last Year: Yes Review of Systems Positive: Shortness Of Breath - increased from baseline Negative: Nausea Positive: Other - denies calf pain and leg swelling Neurological: Other - denies dizziness Positive: Headache All Other Systems Reviewed And Are Negative: Yes Physical Exam - Summary Physical Exam Summary: GENERAL: Patient is a well-developed and nourished FEMALE who is lying comfortable in the stretcher. Patient is not in any acute respiratory distress. HEAD AND FACE: Normocephalic EYES: PERRLA, EOMI x 2. EARS: Hearing grossly intact. MOUTH: Oropharynx within normal limits. NECK: Supple, trachea is midline, no adenopathy, no JVD, no carotid bruit. CHEST: Symmetric, no tenderness at palpation LUNGS: Clear to auscultation bilaterally. Wheezing bilaterally. CVS: Regular rate and rhythm, S1 and S2 present, no murmurs or gallops appreciated. ABDOMEN: Soft, non-tender. Bowel sounds are normal. No abdominal abnormal pulsations. EXTREMITIES: Full ROM in all major joints, no edema, no cyanosis or clubbing. NEURO: Alert and oriented x 3. No acute neurological deficits. Speech is normal and follows commands. SKIN: Dry and warm Triage Information Reviewed: Yes Vital Signs On Initial Exam: Initial Vitals Temp Pulse Resp BP Pulse Ox 98.9 F 111 18 179/81 96 12/21/17 13:56 12/21/17 13:56 12/21/17 13:56 12/21/17 13:56 12/21/17 13:56 Vital Signs Reviewed: Yes Diagnostics - Vital Signs Vital Signs Temp Pulse Resp BP Pulse Ox 12/21/17 14:28 95 12/21/17 14:25 109 21 152/67 100 12/21/17 14:01 111 13 99 12/21/17 13:56 98.9 F 111 18 179/81 96 - Laboratory Result Diagrams: 12/22/17 04:53 12/22/17 04:24 Lab Statement: Any lab studies that have been ordered have been reviewed, and results considered in the medical decision making process. - Radiology CXR Radiology Interpretation Completed By: Radiologist - Stigmata of obstructive lung disease. Patchy consolidation at the RIGHT lower lung zone suspicious for probable mucus plugging and atelectasis versus inflammatory infiltrate. ED physician has reviewed this radiology report. - Ultrasound No standard instances Ultrasound Interpretation Completed By: Radiologist - DVT LE US: Pending radiologist official interpretation. See [facility]. - EKG 1424 Cardiac Rate: Tachycardia - 104 BPM EKG Rhythm: Sinus Tachycardia EKG Interpretation: diffuse ST depression Re-Evaluation - Re-Evaluation First Eval Re-Evaluation Time: 16:02 Comment: Discussed results with the patient and plan for further workup. Second Eval Re-Evaluation Time: 18:24 Comment: The patient is pain free. Course/Dx - Course Assessment/Plan: This patient is a 72 year old F BIBA to ED with a chief complaint of L arm pain, radiating to her shoulder blade since 1200 today. Presents with L arm radiating to shoulder louise. Her workup is remarkable including first trop of 0.04. Chart search showed previous elevated trop. Creatinine showed 1.13. She was given nitro and ASA. Upon re-eval, her pain was gone. D-dimer showed elevation at 400. I ordered for bilateral LE Doppler. Patient was not capable of getting CT angiogram because of kidney function. Discussed case with Dr. Dawn. Second trop was more elevated at 0.27 at which I start heparin drip. Upon re-eval, she remains pain free. Dr. López made aware of upward trend of trop. Patient understands and agrees to admission. - Diagnoses Provider Diagnoses: Chest pain - Physician Notifications Discussed Care of Patient With: Jaylon Dawn Time Discussed With Above Provider: 16:40 Instructed by Provider To: Other - Consulted Dr. Dawn about the patient and he accepts the patient for admission. Discussed with Dr. López about the patient's increasing troponin. - Critical Care Time Critical Care Time: 30-74 min - 35 minutes Discharge - Sign-Out/Discharge Documenting (check all that apply): Patient Departure - Discharge Plan Condition: Stable Disposition: ADMITTED TO [facility] - Billing Disposition and Condition Condition: STABLE Disposition: Admitted to [facility]
[2017-12-21 15:03] LABS: INR 0.89 (0.77-1.02)
[2017-12-21] MEDS ORDERED: Nitroglycerin TAB 0.4 MG* 0.4 MG TAB SL ONE (15:07)
[2017-12-21] MEDS ORDERED: Aspirin 81 mg CHEW TAB* 81 MG TAB.CHEW PO ONE (15:07)
[2017-12-21] MEDS ORDERED: Dexamethasone IV* 4 MG/ML 5 ML VIAL (20 MG) IVPB ONE (15:08)
[2017-12-21] MEDS ORDERED: Albuterol/Ipratropium NEB.SOL* Albuterol 2.5 MG/Ipratropium 0.5 MG 3 ML INH ONE (15:08)
[2017-12-21 15:12] LABS: EGFR Non-African American 27.2 (>60)
--- NOTE | 2017-12-21 16:04 | RAD ---
Indication: Chest pain going down the LEFT arm. Cough. COPD. History of congestive heart failure. History of tobacco use. Comparison: November 12, 2017 Technique: Upright AP 1436 hours Report: Elevated lung volumes. Mild patchy alveolar consolidation at the RIGHT lower lung zone. Negative for pleural effusions. Negative for pneumothorax. The heart, pulmonary vasculature, and mediastinal contours are unremarkable. IMPRESSION: #. Stigmata of obstructive lung disease. #. Patchy consolidation at the RIGHT lower lung zone suspicious for probable mucus plugging and atelectasis versus inflammatory infiltrate.
[2017-12-21] MEDS ORDERED: oxyCODONE/Acetamin 5/325 MG* TAB PO PRN (17:10)
[2017-12-21] MEDS ORDERED: Albuterol/Ipratropium NEB.SOL* Albuterol 2.5 MG/Ipratropium 0.5 MG 3 ML INH PRN (17:10)
[2017-12-21] MEDS ORDERED: Acetaminophen TAB* 325 MG PO PRN (17:10)
[2017-12-21] MEDS ORDERED: Ondansetron INJ* 2 MG/ML VIAL IV PRN (17:10)
[2017-12-21] MEDS ORDERED: Magnesium Hydroxide LIQ* 30 ML UDC PO PRN (17:10)
[2017-12-21] MEDS ORDERED: Al Hydrox/Mg Hydrox/Simet LIQ* 30 ML UDC PO PRN (17:10)
[2017-12-21] MEDS ORDERED: Albuterol HFA INHALER* 8 gm MDI INH PRN (17:15)
[2017-12-21] MEDS ORDERED: Nitroglycerin TAB 0.4 MG* 0.4 MG TAB SL PRN (17:22)
--- NOTE | 2017-12-21 18:50 | RAD ---
INDICATION: Shortness of breath and elevated d-dimer. COMPARISON: No relevant prior exams available on the [facility] PACS for comparison. TECHNIQUE: De La Paz scale, color Doppler, and spectral analysis of the deep veins of the BILATERAL lower extremities. Vessel compression, phasicity, and augmentation assessed. REPORT: The RIGHT common femoral, great saphenous, profunda femoral, femoral, popliteal, peroneal, and posterior tibial veins are patent. The LEFT common femoral, great saphenous, profunda femoral, femoral, popliteal, peroneal, and one of the posterior tibial veins are patent. The remaining LEFT posterior tibial vein could not be visualized. IMPRESSION: #. No evidence for RIGHT lower extremity DVT. #. No evidence for LEFT lower extremity DVT through the popliteal vein. Assessment of the LEFT calf is limited as one of the posterior tibial veins could not be visualized. The remaining posterior tibial and paired peroneal veins of the LEFT calf are patent.
[2017-12-21] MEDS ORDERED: Heparin VIAL(*) 5000 UNITS/ML VIAL (FIVE THOUSAND) IV SCH (19:00)
[2017-12-21] MEDS: Heparin DRIP 25,000 UNITS(*) 25,000 UNITS/500 ML BAG IV SCH (19:23)
[2017-12-21] MEDS ORDERED: Melatonin 3 MG TAB PO SCH (21:00)
[2017-12-21] MEDS ORDERED: Atorvastatin* 80 MG TAB PO ONE (21:00)
[2017-12-21] MEDS: Mometasone/Formoter 200/5 MDI INH SCH (21:16)
--- NOTE | 2017-12-21 21:18 | PN ---
Progress Note - Progress Note Date of Service: 12/21/17 Note: Troponin levels noted, Heparin drip was initiated in ED Patient continues to be comfortable, denies chest pain Discussed with Dr. Gann who will evaluate patient tonight. NPO after midnight for possible cardiac cath
--- NOTE | 2017-12-21 21:25 | HP ---
CC: Dr. Holbrook * ADMISSION HISTORY AND PHYSICAL: DATE OF ADMISSION: 12/21/17 PATIENT OF: Jaylon Dawn MD, attending hospitalist. PRIMARY CARE PROVIDER: Dr. Holbrook. ATTENDING PHYSICIAN WHILE PATIENT IN HOSPITAL: Jaylon Dawn MD * (DICTATED BY STAS ROLON) CHIEF COMPLAINT: Left arm and left chest wall pain. HISTORY OF PRESENT ILLNESS: Mrs. Lambert is a 72-year-old female with multiple medical problems including hypertension, hyperlipidemia, severe COPD, chronic kidney disease as well as history of CHF and CVA who presented to the emergency room earlier today with complaints of left arm and left shoulder pain that started roughly around noon today. The patient has history of non-STEMI back in 2016. She has been followed by Dr. Campos who she notes so her last month and noticed that everything was good with her and she is not scheduled to be seen for another year. She denies any substernal chest pain, tightness, nausea, vomiting, or diaphoresis. By the time she presented to the emergency room, her arm and shoulder pain is essentially gone. She had laboratory workup that revealed troponin of 0.04, which has been higher than her last visit back in October of this year. She had an EKG done that revealed no significant ST changes. She was also noted to have elevated D- dimer of 334, for which she had a bilateral lower extremity ultrasound to rule out any possibility of DVT and results of the study is pending at the time of admission. The patient also has a history of COPD for which she has been maintained on nebulizers as well as home oxygen. She tells me that she has been on 4 L per minute, almost day and night. She denies any cough, shortness of breath, leg swelling, or any other associated symptoms. She has not been using her CPAP machine for obstructive sleep apnea for quite some time now because "she does not like to use it anymore." She denies any headache, dizziness, arm weakness or numbness. Given her multiple high risks as well as known history of non-STEMI earlier this year, we were asked to see the patient for further evaluation and to consider admission for telemetry for observation. It is also to be noted that her last stress test was done in November 2014 and was essentially normal. PAST MEDICAL HISTORY: Significant for: 1. Hypertension. 2. Hyperlipidemia. 3. Severe COPD for which she has been on about 4 L of oxygen at all times at home. 4. Chronic kidney disease. 5. Osteoarthritis. 6. Peripheral vascular disease. 7. History of GI bleed. 8. CHF with her last echo done in September of this year and it showed ejection fraction of greater than 65%. 9. Also, history of CVA. 10. Anemia. 11. NSTEMI earlier this year. 12. History of uterine cancer. PAST SURGICAL HISTORY: Significant for carotid endarterectomy on the right side as well as hysterectomy. CURRENT MEDICATIONS: Her medications at home include: 1. Albuterol MDI 1 puff inhaled q.4 hours as needed for shortness of breath. 2. Aspirin 81 mg p.o. daily. 3. Lipitor 20 mg p.o. daily. 4. Symbicort 160/4.5 one puff inhaled b.i.d. 5. Plavix 75 mg p.o. daily. 6. Vitamin B12 500 mcg p.o. daily. 7. Diltiazem 120 mg p.o. daily. 8. Lasix 40 mg p.o. daily. 9. Neurontin 200 mg p.o. q.h.s. 10. Neurontin 100 mg p.o. daily. 11. Avapro 300 mg p.o. daily. 12. Iron complex 150 mg p.o. daily. 13. Melatonin 5 mg 1 tablet p.o. q.h.s. 14. Metoprolol 50 mg p.o. daily. 15. Singulair 10 mg p.o. daily. 16. Ellipta MDI 1 inhalation once daily. ALLERGIES: She has no known drug allergies. SOCIAL HISTORY: The patient is a former smoker, quit smoking last fall. She denies alcohol abuse. Her surrogate decision maker is her daughter, Joann. FAMILY HISTORY: Reviewed and noncontributory. REVIEW OF SYSTEMS: See HPI, otherwise 14 points of review of systems were examined and essentially negative. PHYSICAL EXAMINATION GENERAL: She is a pleasant, obese, older female, in no acute distress or discomfort at the time of admission. VITAL SIGNS: Revealed temperature of 98.9, blood pressure of 119/95, pulse of 106, respirations of 20 with O2 sat of 100% on 4 L via nasal cannula. HEENT: Head is normocephalic, atraumatic. Sclerae are anicteric. PERRLA. EOMs intact. Oropharynx is pink and moist. NECK: Supple. Trachea midline. No cervical adenopathy, thyromegaly or JVD. LUNGS: Clear to auscultation bilaterally. There are decreased breath sounds throughout. There is no chest retraction or labored breathing. HEART: Regular rate and rhythm. Normal S1 and S2 without rubs, murmurs, or gallops. BACK: With normal curvature. No CVA tenderness. BREASTS: Exam deferred at this time. ABDOMEN: Soft, nontender, and nondistended. No hernias, masses, or hepatosplenomegaly. RECTAL: Exam deferred at this time. EXTREMITIES: Without cyanosis, clubbing, or edema. NEUROLOGIC: She is awake, alert, and oriented x3. Neurological exam was grossly intact. LABORATORY WORKUP: CBC with white count of 12,900, hemoglobin 8.5, which had been her baseline for the past year, hematocrit of 27, and platelets of 255. D- dimer as mentioned elevated at 334, which again has been even lower than her baseline compared to last reading of 438 in January of last year. Her chemistry panel with sodium of 138, potassium 4.8, chloride 102, CO2 of 30, BUN of 37, which also has been her baseline lately, creatinine of 1.8, glucose 239. Lactic acid 2.0. LFTs within normal limits. BNP 366 and troponin at 0.04. ACCESSORY DIAGNOSTIC DATA: Her EKG was done showing sinus tachycardia without any evidence of ST changes. Chest x-ray showed chronic obstructive pulmonary disease with some consolidation at the right lower lung zone, possibly atelectasis versus mucus plug. IMPRESSION AND RECOMMENDATIONS: A 72-year-old female with complex medical history who presented to the emergency room today with complaints of left-sided shoulder and arm pain with known history of NSTEMI who was evaluated in the emergency room and had concern for elevated troponin and will be admitted to telemetry under observation status for the followin. Left arm and chest wall pain. Again, it is unclear if it was cardiac in nature, but given her elevated troponin and multiple risk factors, the patient will be admitted to telemetry for observation overnight. We will trend her troponin and repeat her EKG in the morning. Her last echo was done on 10/28/17 showing good ejection fraction and normal ventricular function. I will not repeat her echo during this admission; however, her last stress test was done in 2014 and I will proceed with a stress test tomorrow for further evaluation of possible acute coronary syndrome. She appears to be comfortable and denies any chest pain at the time of admission. 2. Chronic obstructive pulmonary disease. The patient with known history of chronic obstructive pulmonary disease and we will maintain her on her nebulizer treatment and home oxygen. She appears to be stable at this point and shows no evidence of exacerbations. 3. Hypertension. We will continue her meds. 4. Hyperlipidemia. We will continue her statin therapy. 5. History of non-ST elevation IN. We will continue her meds as prescribed including statin, beta-georgette, aspirin and Plavix therapy and we will await stress test results tomorrow. 6. Obstructive sleep apnea. The patient has stopped using her CPAP and we will monitor her saturation closely overnight. 7. Chronic kidney disease. Appears to be at baseline. 8. History of peripheral vascular disease. Continue her aspirin, statin, and beta- georgette. 9. History of anemia. Her H and H appears to be stable at her baseline and we will continue her iron. 10. DVT prophylaxis. The patient is at high risk and we will provide subcu heparin. 11. Code status. She is a full code. TIME SPENT: Approximately 60 minutes were spent admitting this patient, with greater than 50% taking history and performing physical exam. I have discussed the plan of care with Dr. Dawn who agreed and will follow her up accordingly. STAS ROLON [id number]/[facility] #: [id number] [place]
[2017-12-21] MEDS ORDERED: Ticagrelor* 90 MG TAB PO ONE (21:54)
--- NOTE | 2017-12-21 21:55 | CONSULT ---
Subjective Date of Service: 12/21/17 Interval History: Admission and consult Date: 12/21/17 Provider: Hospitalist service PMD Dr. Holbrook [employer] Repairer: Dr. Campos CHIEF COMPLAINT: Left arm pain Reason for consult: NSTEMI HISTORY OF PRESENT ILLNESS: Abby Lambert is a 72 year old woman with a history of HTN, HFpEF/CKD, CVA, PAD , obesity, prior tobacco use, VEENA not on cpap, anemia, COPD on 4 liters of 02 at home but she states was told she only needs 2 or 3. She had a medically managed NSTEMI in 2017. She was in her usual state of home sitting watching TV. She developed unprovoked episode of left arm pain radiating to left shoulder blade. EMS was called. She received NTG x 1 here. Her pain gradually dissipated. She is now entirely pain free. She has had no recent change of breathing (chronic BENAVIDEZ), edema, palpitations or syncope. She is limited by back pain on ambulation but lives independently. She denies any history of bleeding. Allergies: No Known Drug Allergy 08/22/15 allergy list reviewed on 11/06/2017 PAST MEDICAL HISTORY: Significant for: 1. Hypertension. 2. Hyperlipidemia. 3. Severe COPD 4. Chronic kidney disease. 5. Osteoarthritis. 6. Peripheral vascular disease. 7. History of GI bleed. 8. HFpEF 9. CVA R frontal lobe 10. Anemia. 11. NSTEMI earlier this year. 12. History of uterine cancer. 13. Dark stool in past with EGD no ulcers 2016 Surgical Hx: Carotid Endarterectomy Left, stent (approx 2011) Hysterectomy - (01/2016) FH: Cancer - mother, sister Diabetes - sister Chronic Obstructive Pulmonary Disease (COPD) - father Emphysema - father. Father: due to unrelated to cardiac issues. Mother: due to unrelated to cardiac issues. Siblings:3 - 2 sisters, 1 brother 1 sister cardiac stents, still living 1 sister [place] 2014 still living 1 brother, cardiac issues, still living. SH: Marital: .Lives With: Alone.Occupation: Retired. Personal Habits: Smoking: Patient is a former smoker - smoked 1PPD for 30 years quit last year.Alcohol: Denies alcohol use.Drug Use: Denies Drug Use.Daily Caffeine: sporadically not daily, Consumes on average 1 cup of regular coffee per day - Her surrogate decision maker is her daughter, Joann. PAST SURGICAL HISTORY: carotid endarterectomy on the right side hysterectomy. ALLERGIES: She has no known drug allergies. FAMILY HISTORY: Reviewed and noncontributory. Medications Active Medications: Acetaminophen (Tylenol Tab*) 650 mg PO Q4H PRN PRN Reason: FEVER/PAIN Al Hydrox/Mg Hydrox/Simethicone (Maalox Plus*) 30 ml PO Q6H PRN PRN Reason: INDIGESTION Albuterol (Ventolin Hfa Inhaler*) 1 puff INH Q4H PRN PRN Reason: SOB/WHEEZING Albuterol/Ipratropium (Duoneb (Albuterol 2.5 Mg/Ipratropium 0.5 Mg)) 1 neb INH [id number] AWAKE PRN PRN Reason: sob/wheexing Aspirin (Aspirin Ec Tab*) 81 mg PO DAILY [facility] Atorvastatin Calcium (Lipitor*) 20 mg PO DAILY [facility] Clopidogrel Bisulfate (Plavix Tab*) 75 mg PO DAILY [facility] Cyanocobalamin (Vitamin B12 Tab*) 500 mcg PO DAILY [facility] Diltiazem HCl (Cardizem Cd Cap*) 120 mg PO DAILY [facility] Furosemide (Lasix Tab*) 40 mg PO DAILY [facility] Gabapentin (Neurontin Cap(*)) 100 mg PO DAILY [facility] Gabapentin (Neurontin Cap(*)) 200 mg PO BEDTIME [facility] Heparin Sodium (Porcine) (Heparin Vial(*)) 4,000 units IV ED ONCE [facility] Last Admin: 12/21/17 19:27 Dose: 3,500 units Heparin Sodium/Dextrose (Heparin Drip 25,000 Units(*)) 25,000 units in 500 mls @ 0 mls/hr IV PER RATE [facility]; Protocol Last Admin: 12/21/17 19:23 Dose: 14 mls/hr Irbesartan (Avapro (Nf)) 300 mg PO DAILY [facility] Magnesium Hydroxide (Milk Of Magnesia Liq*) 30 ml PO Q4H PRN PRN Reason: CONSTIPATION Melatonin (Melatonin) 3 mg PO BEDTIME [facility] Metoprolol Succinate (Toprol Xl Tab*) 50 mg PO DAILY [facility] Mometasone Furoate/Formoterol Fumar (Dulera 200/5 Mdi*) 2 puff INH BID [facility] Last Admin: 12/21/17 21:16 Dose: 2 puff Montelukast Sodium (Singulair Tab*) 10 mg PO BEDTIME [facility] Nitroglycerin (Nitroglycerin Tab 0.4 Mg*) 0.4 mg SL Q5M PRN PRN Reason: ANGINA Ondansetron HCl (Zofran Inj*) 4 mg IV Q4H PRN PRN Reason: NAUSEA/VOMITING Oxycodone/Acetaminophen (Percocet 5/325 Tab*) 1 tab PO Q4H PRN PRN Reason: Pain Home Medications: Albuterol HFA INHALER* [Ventolin HFA Inhaler*] 1 puff INH Q4H PRN 10/28/17 [ History Confirmed 12/21/17] Aspirin EC TAB* [Ecotrin EC Low Dose 81 MG*] 81 mg PO DAILY 10/28/17 [History Confirmed 12/21/17] Atorvastatin* [Lipitor 20 MG*] 20 mg PO DAILY 10/28/17 [History Confirmed ] Budesonide/Formote 160/4.5(NF) [Symbicort 160/4.5 (NF)] 1 puff INH BID 10/28/17 [History Confirmed 12/21/17] Clopidogrel TAB* [Plavix TAB*] 75 mg PO DAILY 10/28/17 [History Confirmed ] Cyanocobalamin TAB* [Vitamin B12 TAB*] 500 mcg PO DAILY 10/28/17 [History Confirmed 12/21/17] Furosemide TAB* [Lasix TAB*] 40 mg PO DAILY 10/28/17 [History Confirmed 12/21/17 ] Gabapentin CAP(*) [Neurontin 100 mg CAP(*)] 100 mg PO DAILY 10/28/17 [History Confirmed 12/21/17] Gabapentin CAP(*) [Neurontin 100 mg CAP(*)] 200 mg PO BEDTIME 10/28/17 [History Confirmed 12/21/17] Irbesartan (NF) [Avapro (NF)] 300 mg PO DAILY 10/28/17 [History Confirmed ] Iron Polysaccharide Complex [Ferrex 150] 150 mg PO DAILY 10/28/17 [History Confirmed 12/21/17] Melatonin (NF) 1 tab PO BEDTIME 10/28/17 [History Confirmed 12/21/17] Metoprolol Succinate XL TAB* [Toprol XL TAB*] 50 mg PO DAILY 10/28/17 [History Confirmed 12/21/17] Montelukast Sodium TAB* [Singulair 10 MG TAB*] 10 mg PO DAILY 10/28/17 [History Confirmed 12/21/17] Umeclidin 62.5 MDI(NF) [Incruse ELLIPTA MDI (NF)] 62.5 mcg IN DAILY 10/28/17 [ History Confirmed 12/21/17] dilTIAZem HCl [Cartia Xt] 120 mg PO DAILY 10/28/17 [History Confirmed 12/21/17] Review of Systems - Measurements Intake and Output: Intake and Output Last 24 Hours 12/19/17 12/20/17 12/21/17 12/22/17 06:59 06:59 06:59 06:59 Weight 170 lb - Review of Systems Constitutional Symptoms: Negative: Weight Gain, Weight Loss Dermatology: Negative: Rash, Skin Lesions HEENT: Negative: Change in Hearing, Vertigo, Dental Problems, Tinnitus, Sinus Problem, Other Thyroid: Negative: Weight Loss, Weight Gain Pulmonary: Positive: Shortness of Breath, COPD, Exercise Intolerance, Home Oxygen Cardiology: Positive: Chest Pain, Shortness of Breath, Peripheral Vascular Dis Negative: Palpitations, Swelling of Ankles, Edema, Faintness, Syncope, Paroxysmal Nocturnal Dyspnea, Orthopnea Gastroenterology: Negative: Abdominal Pain, Nausea, Vomiting, Anorexia, Haematemesis, Melena Genital - Urinary: Negative: Dysuria, Hematuria Musculoskeletal: Negative: Joint Pain, Joint Stiffness Endocrinology: Negative: Polydipsia, Polyuria Hematologic/Lymphatic: Positive: Anemia, Use of Antiplatelet Drugs Negative: Use of Anticoagulant Neurology: Negative: Numbness\Paresthesiae, Unexplained Weakness Psychiatry: Negative: Unusual Anxiety, Suicidal Ideation Allergic/Immunologic: Negative: Hx HIV, Immunocompromise Review of Systems Statement: All other review of systems negative, unless stated above. Objective Vital Signs: Temp Pulse Resp BP Pulse Ox 99.3 F 107 18 125/55 99 12/21/17 20:44 12/21/17 21:16 12/21/17 20:00 12/21/17 19:51 12/21/17 21:16 Oxygen Devices in Use Now: Nasal Cannula Appearance: chronically ill appearing, nad Ears/Nose/Mouth/Throat: Clear Oropharnyx Neck: NL Appearance and Movements; NL JVP Respiratory: Symmetrical Chest Expansion and Respiratory Effort, Clear to Auscultation Cardiovascular: NL Sounds; No Murmurs; No JVD, RRR, No Edema Abdominal: NL Sounds; No Tenderness; No Distention Extremities: No Edema Skin: No Rash or Ulcers Neurological: Alert and Oriented x 3 Laboratory Results: 12/21/17 14:48 12/21/17 14:48 INR (Anticoag Therapy) 0.89 (0.77-1.02) 12/21/17 14:48 APTT 33.5 seconds (26.0-36.3) 12/21/17 14:48 Total Bilirubin 0.20 mg/dL (0.2-1.0) 12/21/17 14:48 AST 15 U/L (13-39) 12/21/17 14:48 ALT 17 U/L (7-52) 12/21/17 14:48 Alkaline Phosphatase 133 U/L (34-104) H 12/21/17 14:48 CK-MB (CK-2) 4.3 ng/mL (0.6-6.3) 12/21/17 14:48 B-Natriuretic Peptide 336 pg/mL (-100) H 12/21/17 14:48 Total Protein 7.0 g/dL (6.4-8.9) 12/21/17 14:48 Albumin 3.8 g/dL (3.2-5.2) 12/21/17 14:48 Globulin 3.2 g/dL (2-4) 12/21/17 14:48 Albumin/Globulin Ratio 1.2 (1-3) 12/21/17 14:48 12/21/17 12/21/17 12/21/17 14:48 17:45 20:37 Troponin I 0.04 H* 0.27 H* 0.38 H* Diagnostic Imaging: cxr stigmata copd, patch infiltrate right base EKG Data: ekg on admission nsr: st depression anterolateral leads not significantly changed from prior. Assessment/Plan Abby Lambert is a 72-year-old woman with multiple co-morbities as above presents with NSTEMI. Now pain free without recurrent angina, arrhythmias, CHF or hemodynamic instability. We discussed her heart attack and treatment options. We discussed cardiac catheterization with revascularization. She would like to avoid any therapies that would place her at risk for needing dialysis. She is agreeable to start with a lexiscan MPI to risk stratify and if this significantly abnormal to then undergo a cardiac catheterization. Continue current medications as above except: Double anti-anginal/BP med diltiazem from 120 mg po daily to bid d/c plavix and start brillinta 180 mg po x 1 now then 90 mg po bid in case she is a clopidogrel non-responder Increase atorvastatin from 20 to 80 mg po daily Would give 48 hours of heparin gtt Check ck-mb and ekg tomorrow AM (ordered) She did receive IV steroids this admission. Thank you for allowing me to participate in the cardiovascular of this patient. Please do not hesitate to contact me with questions or concerns.
[2017-12-21] MEDS ORDERED: Heparin VIAL(*) 5000 UNITS/ML VIAL (FIVE THOUSAND) SUBCUT SCH (22:00)
[2017-12-21] MEDS: Diltiazem CD CAP* 120 MG PO SCH (23:17)
[2017-12-21] MEDS: Gabapentin CAP(*) 100 MG PO SCH (23:17)
[2017-12-22] MEDS ORDERED: Furosemide IV* 10 MG/ML 2 ML VIAL (20 MG) IV ONE (02:31)
[2017-12-22] MEDS ORDERED: Magnesium Sulfate IV* 2 GM in NS 0.9% 100 ML* 100 ML IVPB ONE (04:17)
[2017-12-22] MEDS ORDERED: methylPREDNISolone 125 MG* 2 ML VIAL IV ONE (04:17)
[2017-12-22] MEDS ORDERED: MAGNESIUM SULFATE IVPB ONE (04:20)
[2017-12-22] MEDS ORDERED: NS 0.9% IVPB ONE (04:20)
--- NOTE | 2017-12-22 04:26 | PN ---
Progress Note - Progress Note Date of Service: 12/22/17 Note: Nursing requested evaluation for SOB despite albuterol TX. Upon arrival, Mrs Lambert is supine in bed with mild accessory muscle use. She reports SOB through the night that albuterol has helped temporarily. She denies chest pain. Lungs are diminished B with scant mid- to end- expiratory wheeze and poor aeration. CV is RRR. Abdomen is SNTNT. ECG shows NSR with mild ST depression V5/ 6, I, II unchanged from prior. CXR is negative. AM labs are being drawn early by director of cardiac cath lab. Assessment: plan COPD exacerbation : D/C albuterol HFA : continue mometasone/formoterol : add albuterol neb Q4H while awake & Q2H PRN : add methyprednisolone IV 125mg now & 40mg Q8H : give 1gm IV magnesium x1 dose now : add tiotropium : continue supplemental oxygen : nursing to follow closing and advise of change
[2017-12-22] MEDS: Albuterol 2.5 MG/3 ML NEB.SOL* (0.083%) INH PRN (04:32)
[2017-12-22] MEDS ORDERED: Magnesium Sulfate 1 GM IV* 1 GM/100 ML BAG IV ONE (04:45)
[2017-12-22 04:47] LABS: EGFR Non-African American 24.4 (>60)
[2017-12-22 05:01] LABS: Hematocrit 28 % (35-47); Hemoglobin 8.9 g/dl (12.0-16.0); Mean Corpuscular HGB Conc 31 g/dl (31-36); Mean Corpuscular Hemoglobin 29 pg (27-31); Mean Corpuscular Volume 93 fL (80-97); Platelet Count 305 10^3/ul (150-450); Red Blood Count 3.06 10^6/ul (4.00-5.40); Red Cell Distribution Width 15 % (10.5-15); White Blood Count 22.4 10^3/ul (3.5-10.8)
[2017-12-22 05:07] LABS: ABS Basophils 0.3 10^3/ul (0-0.2); ABS Eosinophils 0 10^3/ul (0-0.6); ABS Lymphocytes 0.9 10^3/ul (1.0-4.8); ABS Monocytes 0.4 10^3/ul (0-0.8); ABS Neutrophils 20.9 10^3/ul (1.5-7.7); ABS Nucleated RBC 0 10^3/ul; Eosinophil % 0 % (0-6); Lymphocyte % 4.1 % (25-47); Nucleated Red Blood Cells % 0
[2017-12-22] MEDS: Albuterol/Ipratropium NEB.SOL* Albuterol 2.5 MG/Ipratropium 0.5 MG 3 ML INH SCH ×2 (06:37→12:26)
[2017-12-22] MEDS ORDERED: Albuterol 2.5 MG/3 ML NEB.SOL* (0.083%) INH SCH (07:00)
[2017-12-22] MEDS: Mometasone/Formoter 200/5 MDI INH SCH ×3 (07:53→21:39)
--- NOTE | 2017-12-22 08:22 | RAD ---
HISTORY: shortness of breath COMPARISONS: December 21, 2017 VIEWS: 1: frontal portable view of the chest at 4:09 AM FINDINGS: LINES AND TUBES: None. CARDIOMEDIASTINAL SILHOUETTE: The cardiomediastinal silhouette is normal for portable technique. PLEURA: The costophrenic angles are sharp. No pleural abnormalities are noted. LUNG PARENCHYMA: The lungs are clear. The airspace disease noted on the previous examination is not well-visualized on the current examination. ABDOMEN: The upper abdomen is clear. There is no subphrenic gas. BONES AND SOFT TISSUES: No bone or soft tissue abnormalities are noted. IMPRESSION: NO ACTIVE CARDIOPULMONARY DISEASE.
--- NOTE | 2017-12-22 08:48 | PN ---
Subjective Date of Service: 12/22/17 Interval History: SOB, typical COPD exacerbation for her. Better after nebulized meds. No sputum. No more arm pain. She can't lie down flat. Objective Active Medications: Acetaminophen (Tylenol Tab*) 650 mg PO Q4H PRN PRN Reason: FEVER/PAIN Al Hydrox/Mg Hydrox/Simethicone (Maalox Plus*) 30 ml PO Q6H PRN PRN Reason: INDIGESTION Albuterol (Ventolin 2.5 Mg/3 Ml Neb.Olamide*) 2.5 mg INH Q2H PRN PRN Reason: SOB/WHEEZING Last Admin: 12/22/17 04:32 Dose: 2.5 mg Albuterol/Ipratropium (Duoneb (Albuterol 2.5 Mg/Ipratropium 0.5 Mg)) 1 neb INH [id number] AWAKE [facility] Last Admin: 12/22/17 06:37 Dose: 1 neb Aspirin (Aspirin Ec Tab*) 81 mg PO DAILY [facility] Cyanocobalamin (Vitamin B12 Tab*) 500 mcg PO DAILY [facility] Device (Tiotropium Inhaler Device*) 1 each INH ONCE ONE Stop: 12/22/17 09:01 Diltiazem HCl (Cardizem Cd Cap*) 120 mg PO BID [facility] Last Admin: 12/21/17 23:17 Dose: 120 mg Furosemide (Lasix Tab*) 40 mg PO DAILY [facility] Gabapentin (Neurontin Cap(*)) 100 mg PO DAILY [facility] Gabapentin (Neurontin Cap(*)) 200 mg PO BEDTIME [facility]IS[facility] Last Admin: 12/21/17 23:17 Dose: 200 mg Heparin Sodium (Porcine) (Heparin Vial(*)) 4,000 units IV ED ONCE [facility] Last Admin: 12/21/17 19:27 Dose: 3,500 units Heparin Sodium/Dextrose (Heparin Drip 25,000 Units(*)) 25,000 units in 500 mls @ 0 mls/hr IV PER RATE [facility]; Protocol Last Admin: 12/21/17 19:23 Dose: 14 mls/hr Ipratropium [place] (Atrovent 0.5 Mg Neb.Olamide*) 0.5 mg INH Q4H PRN PRN Reason: SOB/WHEEZING Levalbuterol HCl (Xopenex 1.25 Mg/0.5 Ml Neb.Olamide*) 1.25 mg INH Q2H PRN PRN Reason: DYSPNEA Magnesium Hydroxide (Milk Of Magnbrii Liq*) 30 ml PO Q4H PRN PRN Reason: CONSTIPATION Melatonin (Melatonin) 3 mg PO BEDTIME [facility] Last Admin: 12/21/17 23:17 Dose: 3 mg Methylprednisolone Sodium Succinate (Solu-Medrol 40 Mg) 40 mg IV Q8H [facility] Metoprolol Succinate (Toprol Xl Tab*) 50 mg PO DAILY [facility] Mometasone Furoate/Formoterol Fumar (Dulera 200/5 Mdi*) 2 puff INH BID [facility] Last Admin: 12/22/17 07:53 Dose: 2 puff Montelukast Sodium (Singulair Tab*) 10 mg PO BEDTIME [facility] Nitroglycerin (Nitroglycerin Tab 0.4 Mg*) 0.4 mg SL Q5M PRN PRN Reason: ANGINA Ondansetron HCl (Zofran Inj*) 4 mg IV Q4H PRN PRN Reason: NAUSEA/VOMITING Oxycodone/Acetaminophen (Percocet 5/325 Tab*) 1 tab PO Q4H PRN PRN Reason: Pain Ticagrelor (Brilinta*) 90 mg PO BID [facility] Tiotropium [place] (Spiriva Cap.Inh*) 1 cap INH DAILY [facility] Last Admin: 12/22/17 07:53 Dose: 1 cap Vital Signs - 8 hr 12/22/17 12/22/17 12/22/17 00:47 01:21 01:57 Temperature Pulse Rate 107 120 Respiratory 20 18 Rate Blood Pressure 168/88 (mmHg) O2 Sat by Pulse 100 Oximetry 12/22/17 12/22/17 12/22/17 02:04 04:34 06:38 Temperature 98.5 F Pulse Rate 117 110 112 Respiratory 16 20 22 Rate Blood Pressure 160/76 (mmHg) O2 Sat by Pulse 98 97 100 Oximetry 12/22/17 08:05 Temperature Pulse Rate 114 Respiratory 24 Rate Blood Pressure (mmHg) O2 Sat by Pulse 95 Oximetry Oxygen Devices in Use Now: Nasal Cannula Appearance: Alert, partly up in bed. In fair spirits, feels SOB. Neck: NL Appearance and Movements; NL JVP, No Thyroid Enlargement, Masses Respiratory: Symmetrical Chest Expansion and Respiratory Effort, Clear to Percussion, - - diminished BS BL Extremities: No Edema, No Clubbing, Cyanosis, - Skin: No Rash or Ulcers, No Nodules or Sclerosis, - Neurological: Alert and Oriented x 3, NL Sensation Result Diagrams: 12/22/17 04:53 12/22/17 04:24 Assess/Plan/Problems-Billing Assessment: - Patient Problems (1) CAD (coronary artery disease) Current Visit: No Status: Chronic Code(s): I25.10 - ATHSCL HEART DISEASE OF [place] CORONARY ARTERY W/O ANG PCTRS SNOMED Code(s): 02105119 Comment: NSTEMI. Peak troponin 0.38. ECG shows anaterolateral ST depression. Echo pending. - Continue statin, BB, ASA, ticagrelor and heparin. (2) COPD exacerbation Current Visit: No Status: Acute Priority: High Code(s): J44.1 - CHRONIC OBSTRUCTIVE PULMONARY DISEASE W (ACUTE) EXACERBATION SNOMED Code(s): 744443708578778 Comment: - Continue steroids, frequent nebs. Change to levalbuterol in face of NSTEMI. (3) HTN (hypertension) Current Visit: No Status: Chronic Code(s): I10 - ESSENTIAL (PRIMARY) HYPERTENSION SNOMED Code(s): 54382528 Comment: - Normotensive, SBP 110-140's - Continue furosemide and metoprolol (4) Back pain Current Visit: Yes Status: Acute Code(s): M54.9 - DORSALGIA, UNSPECIFIED SNOMED Code(s): 130518734 Comment: Chronic, unchanged. Continue gabapentin, PRN oxycodone/APAP. (5) Stage III chronic kidney disease Current Visit: No Status: Acute Code(s): N18.3 - CHRONIC KIDNEY DISEASE, STAGE 3 (MODERATE) SNOMED Code(s): 143387596 Comment: Est GFR 24.4 12/22/17. Stable. (6) Anemia Current Visit: No Status: Acute Code(s): D64.9 - ANEMIA, UNSPECIFIED SNOMED Code(s): 013022906 Comment: Stable, appropriate to her degree of renal insufficiency. - Normocytic, appears chronic, dating back to 07/2016 - EGD done 12/16 did not reveal any source of bleed Ferritin level 12/23. (7) Diabetes Current Visit: Yes Status: Acute Code(s): E11.9 - TYPE 2 DIABETES MELLITUS WITHOUT COMPLICATIONS SNOMED Code(s): 19529660 Comment: ? formally diagnosed. Lispro by SS. A1C 12/23.
[2017-12-22] MEDS ORDERED: Dextrose 50% Syringe 50 ML* 25 GM/50 ML SYRINGE IV PUSH PRN (08:57)
[2017-12-22] MEDS ORDERED: Atorvastatin* 20 MG TAB PO SCH (09:00)
[2017-12-22] MEDS ORDERED: CMCS:Irbesartan (NF) 150 MG TAB PO SCH (09:00)
[2017-12-22] MEDS ORDERED: Tiotropium CAP.INH* CAP.INH/18 MCG (USE ORDER SET !) INH SCH (09:00)
[2017-12-22] MEDS ORDERED: predniSONE TAB* 20 MG PO SCH (09:00)
[2017-12-22] MEDS ORDERED: Spiriva Inhaler DEVICE* 1 EACH DEVICE INH ONE (09:00)
[2017-12-22] MEDS ORDERED: Diltiazem CD CAP* 180 MG PO SCH (09:00)
[2017-12-22] MEDS ORDERED: Clopidogrel TAB* 75 MG PO SCH (09:00)
[2017-12-22] MEDS: Aspirin EC TAB* 81 MG TAB.EC PO SCH (09:09)
[2017-12-22] MEDS: Furosemide TAB* 40 MG PO SCH (09:09)
[2017-12-22] MEDS: Diltiazem CD CAP* 120 MG PO SCH ×2 (09:09→20:17)
[2017-12-22] MEDS: Cyanocobalamin TAB* 500 MCG PO SCH (09:09)
[2017-12-22] MEDS: Ticagrelor* 90 MG TAB PO SCH ×2 (09:10→20:17)
[2017-12-22] MEDS: Gabapentin CAP(*) 100 MG PO SCH ×2 (09:10→20:18)
[2017-12-22] MEDS: Metoprolol Succinate XL TAB* 25 MG PO SCH (09:10)
[2017-12-22] MEDS: Heparin VIAL(*) 5000 UNITS/ML VIAL (FIVE THOUSAND) IV SCH ×2 (09:34→22:21)
[2017-12-22] MEDS: Ipratropium 0.5MG/2.5ML NEB* 0.5 MG/2.5 ML NEB.SOLN INH PRN ×3 (09:40→17:41)
[2017-12-22] MEDS: Levalbuterol 1.25MG/0.5ML NEB INH PRN ×3 (09:41→17:41)
[2017-12-22] MEDS: Insulin LISPRO* 1 UNITS UNIT SUBCUT SCH ×3 (12:15→20:18)
[2017-12-22] MEDS ORDERED: methylPREDNISolone SOD 40 MG* 1 ML VIAL IV SCH (18:00)
[2017-12-22] MEDS: Heparin DRIP 25,000 UNITS(*) 25,000 UNITS/500 ML BAG IV SCH (18:32)
[2017-12-22] MEDS ORDERED: Montelukast Sodium TAB* 10 MG PO SCH (21:00)
[2017-12-23] MEDS: Levalbuterol 1.25MG/0.5ML NEB INH PRN (05:05)
[2017-12-23] MEDS: Metoprolol Succinate XL TAB* 25 MG PO SCH (07:59)
[2017-12-23] MEDS: Gabapentin CAP(*) 100 MG PO SCH (07:59)
[2017-12-23] MEDS: Diltiazem CD CAP* 120 MG PO SCH (08:00)
[2017-12-23] MEDS: Furosemide TAB* 40 MG PO SCH (08:00)
[2017-12-23] MEDS: Insulin LISPRO* 1 UNITS UNIT SUBCUT SCH ×2 (08:00→12:02)
[2017-12-23] MEDS: Ticagrelor* 90 MG TAB PO SCH (08:00)
[2017-12-23] MEDS: Cyanocobalamin TAB* 500 MCG PO SCH (08:00)
[2017-12-23] MEDS: Aspirin EC TAB* 81 MG TAB.EC PO SCH (08:00)
[2017-12-23] MEDS: Mometasone/Formoter 200/5 MDI INH SCH (08:28)
[2017-12-23] MEDS: Albuterol 2.5 MG/3 ML NEB.SOL* (0.083%) INH PRN (08:34)
[2017-12-23] MEDS ORDERED: predniSONE TAB* 20 MG PO SCH (09:00)
--- NOTE | 2017-12-23 10:18 | PN ---
Subjective Date of Service: 12/23/17 Interval History: No more arm pain. Breathing much better than yesterday but not at her baseline. No cough. No new c/o. Objective Active Medications: Acetaminophen (Tylenol Tab*) 650 mg PO Q4H PRN PRN Reason: FEVER/PAIN Al Hydrox/Mg Hydrox/Simethicone (Maalox Plus*) 30 ml PO Q6H PRN PRN Reason: INDIGESTION Albuterol (Ventolin 2.5 Mg/3 Ml Neb.Olamide*) 2.5 mg INH Q2H PRN PRN Reason: SOB/WHEEZING Last Admin: 12/23/17 08:34 Dose: 2.5 mg Aspirin (Aspirin Ec Tab*) 81 mg PO DAILY [facility] Last Admin: 12/23/17 08:00 Dose: 81 mg Cyanocobalamin (Vitamin B12 Tab*) 500 mcg PO DAILY [facility] Last Admin: 12/23/17 08:00 Dose: 500 mcg Dextrose (D50w Syringe 50 Ml*) 12.5 gm IV PUSH .FOR FS < 60 - SS PRN PRN Reason: FS < 60 Diltiazem HCl (Cardizem Cd Cap*) 120 mg PO BID [facility] Last Admin: 12/23/17 08:00 Dose: 120 mg Furosemide (Lasix Tab*) 40 mg PO DAILY [facility] Last Admin: 12/23/17 08:00 Dose: 40 mg Gabapentin (Neurontin Cap(*)) 100 mg PO DAILY [facility] Last Admin: 12/23/17 07:59 Dose: 100 mg Gabapentin (Neurontin Cap(*)) 200 mg PO BEDTIME [facility] Last Admin: 12/22/17 20:18 Dose: 200 mg Heparin Sodium (Porcine) (Heparin Vial(*)) 0 units IV .PER PROTOCOL [facility] Last Admin: 12/22/17 22:21 Dose: 3,500 units Heparin Sodium/Dextrose (Heparin Drip 25,000 Units(*)) 25,000 units in 500 mls @ 0 mls/hr IV PER RATE [facility]; Protocol Last Admin: 12/22/17 18:32 Dose: 19 mls/hr Insulin Human Lispro (Humalog*) 0 units SUBCUT ACHS [facility]; Protocol Last Admin: 12/23/17 08:00 Dose: 3 units Ipratropium [place] (Atrovent 0.5 Mg Neb.Olamide*) 0.5 mg INH Q4H PRN PRN Reason: SOB/WHEEZING Last Admin: 12/22/17 17:41 Dose: 0.5 mg Levalbuterol HCl (Xopenex 1.25 Mg/0.5 Ml Neb.Olamide*) 1.25 mg INH Q2H PRN PRN Reason: DYSPNEA Last Admin: 12/23/17 05:05 Dose: 1.25 mg Magnesium Hydroxide (Milk Of Magnesia Liq*) 30 ml PO Q4H PRN PRN Reason: CONSTIPATION Metoprolol Succinate (Toprol Xl Tab*) 50 mg PO DAILY [facility] Last Admin: 12/23/17 07:59 Dose: 50 mg Mometasone Furoate/Formoterol Fumar (Dulera 200/5 Mdi*) 2 puff INH BID [facility] Last Admin: 12/23/17 08:28 Dose: 2 puff Montelukast Sodium (Singulair Tab*) 10 mg PO BEDTIME [facility] Last Admin: 12/22/17 20:17 Dose: 10 mg Nitroglycerin (Nitroglycerin Tab 0.4 Mg*) 0.4 mg SL Q5M PRN PRN Reason: ANGINA Ondansetron HCl (Zofran Inj*) 4 mg IV Q4H PRN PRN Reason: NAUSEA/VOMITING Oxycodone/Acetaminophen (Percocet 5/325 Tab*) 1 tab PO Q4H PRN PRN Reason: Pain Prednisone (Deltasone Tab*) 50 mg PO 0900 [facility] Ticagrelor (Brilinta*) 90 mg PO BID [facility] Last Admin: 12/23/17 08:00 Dose: 90 mg Vital Signs - 8 hr 12/23/17 12/23/17 12/23/17 03:28 05:08 07:13 Temperature 97.8 F Pulse Rate 81 72 Respiratory 16 22 22 Rate Blood Pressure 144/48 (mmHg) O2 Sat by Pulse 99 98 Oximetry 12/23/17 12/23/17 12/23/17 07:49 07:59 08:28 Temperature 98.3 F Pulse Rate 76 89 Respiratory 20 22 18 Rate Blood Pressure 125/49 (mmHg) O2 Sat by Pulse 100 98 Oximetry 12/23/17 12/23/17 12/23/17 08:34 08:36 09:37 Temperature Pulse Rate 90 90 Respiratory 18 18 22 Rate Blood Pressure (mmHg) O2 Sat by Pulse 98 98 Oximetry Oxygen Devices in Use Now: Nasal Cannula Appearance: Alert, partly up in bed. In good spirits. Looks comfortable. Eyes: No Scleral Icterus Respiratory: Symmetrical Chest Expansion and Respiratory Effort, Clear to Percussion, - - Diminished BS BL. No wheezing. Extremities: No Edema, No Clubbing, Cyanosis, - Skin: No Rash or Ulcers, No Nodules or Sclerosis, - Neurological: Alert and Oriented x 3, NL Sensation Result Diagrams: 12/22/17 04:53 12/22/17 04:24 Assess/Plan/Problems-Billing Assessment: - Patient Problems (1) CAD (coronary artery disease) Status: Chronic Code(s): I25.10 - ATHSCL HEART DISEASE OF [place] CORONARY ARTERY W/O ANG PCTRS SNOMED Code(s): 87134641 Comment: NSTEMI. Peak troponin 0.38. ECG shows anaterolateral ST depression. Echo unchanged from prior echo, nl LVEF. - Continue statin, BB, ASA, ticagrelor. C/C heparin on discharge, about 2 PM . (2) COPD exacerbation Status: Acute Priority: High Code(s): J44.1 - CHRONIC OBSTRUCTIVE PULMONARY DISEASE W (ACUTE) EXACERBATION SNOMED Code(s): 243769664574012 Comment: Prednisone taper. Continue levalbuterol in face of NSTEMI. Resume tiotropium at home. (3) HTN (hypertension) Status: Chronic Code(s): I10 - ESSENTIAL (PRIMARY) HYPERTENSION SNOMED Code( s): 27260587 Comment: - Normotensive, SBP 110-140's - Continue furosemide and metoprolol (4) Back pain Status: Acute Code(s): M54.9 - DORSALGIA, UNSPECIFIED SNOMED Code(s): 569656003 Comment: Chronic, unchanged. Continue gabapentin, PRN oxycodone/APAP. (5) Stage III chronic kidney disease Status: Acute Code(s): N18.3 - CHRONIC KIDNEY DISEASE, STAGE 3 (MODERATE) SNOMED Code(s): 267008935 Comment: Est GFR 24.4 12/22/17. Stable. (6) Anemia Status: Acute Code(s): D64.9 - ANEMIA, UNSPECIFIED SNOMED Code(s): 693945106 Comment: Stable, appropriate to her degree of renal insufficiency. - Normocytic, appears chronic, dating back to 07/2016 - EGD done 12/16 did not reveal any source of bleed Ferritin level 12/23. (7) Diabetes Status: Acute Code(s): E11.9 - TYPE 2 DIABETES MELLITUS WITHOUT COMPLICATIONS SNOMED Code(s): 79292712 Comment: ? formally diagnosed. Lispro by SS. A1C 12/23 pending. FS glucose 165 07:30 12/23, should improve with prednisone taper. Status and Disposition: Discharge now. Fup Dr. Holbrook.
[2017-12-23] MEDS ORDERED: methylPREDNISolone SOD 40 MG* 1 ML VIAL IV SCH (12:00)
[2017-12-23 12:13] VITALS: BP 120/47
--- NOTE | 2017-12-23 12:47 | ECHO ---
Patient: JYOTI MONTES [facility] Rec#: [id number] : 1945 Date: 12/23/2017 Age: 72y Height: 152.4 cm / 60.0 in Weight: 5.9 kg / 13.0 lbs Sex: F BSA: 0.58 Room#: 437 Admit Date#: 12/22/2017 Type: Inpatient Referring: David Agrawal MD Reading: Rajeev Jiang MD Financial Dealers: Yesenia Marcum,SUADCS,RDMS CC: Prosper Holbrook MD CC: Huber Campos MD Transthoracic Echocardiogram Indication: CP BP: 125/49 HR: 73 Rhythm: NSR Findings History: COPD, HTN, HLD, CKD, CHF, CVA Technical Comments: The study quality is fair. The study is technically limited due to the patient's history of COPD. Left Ventricle: The left ventricular chamber size is decreased. Mild to moderate concentric left ventricular hypertrophy is observed. Global left ventricular wall motion and contractility are within normal limits. There is normal left ventricular systolic function. The estimated ejection fraction is 60-65%. There is an E to A reversal in the mitral valve flow pattern suggestive of diastolic dysfunction. Left Atrium: The left atrium is mild to moderately dilated. Right Ventricle: The right ventricular chamber size and systolic function are within normal limits. The right ventricle wall thickness is mildly increased. Right Atrium: The right atrium is slightly dilated. Aortic Valve: The aortic valve structure is not well visualized. The aortic valve leaflets are mildly thickened. There is no evidence of aortic regurgitation. The mean gradient of the aortic valve is 10 mmHg. The aortic valve area, by peak velocities, is calculated at 1.9 cm2. Mitral Valve: There is mitral annular calcification. The mitral valve leaflets are mildly thickened. There is a trace of mitral regurgitation. There is no evidence of mitral stenosis. Tricuspid Valve: The tricuspid valve leaflets are normal. There is trace tricuspid regurgitation. Unable to estimate the right ventricular systolic pressure. Pulmonic Valve: The pulmonic valve structure is not well visualized. There is no evidence of pulmonic valve thickening. There is no evidence of pulmonic regurgitation. Pericardium: There is no significant pericardial effusion. Aorta: The ascending aorta is not well visualized. The aortic arch is not well visualized. The aortic root is normal in size. Pulmonary Artery: The main pulmonary artery is not well visualized. Venous: The inferior vena cava appears normal in size. There is a greater than 50% respiratory change in the inferior vena cava dimension. Summary: There are no significant changes when compared to the previous study done on 10/29/17 Conclusions Mild to moderate concentric left ventricular hypertrophy is observed. Global left ventricular wall motion and contractility are within normal limits. The estimated ejection fraction is 60-65%. The right ventricular chamber size and systolic function are within normal limits. There is no evidence of aortic regurgitation. There is a trace of mitral regurgitation. There is trace tricuspid regurgitation. Unable to estimate the right ventricular systolic pressure. There is no significant pericardial effusion. Measurements Name Value Normal Range RVIDd (AP) 2D 2.3 cm (0.9 - 2.6) RVDdMajor (2D) 2.7 cm (2.2 - 4.4) RAd ISD 4CH 5.1 cm (3.4 - 4.9) RA (A4C)W 3.3 cm (2.9 - 4.6) IVSd (2D) 1.2 cm (0.6 - 1) LVPWd (2D) 1.3 cm (0.6 - 1) LVIDd (2D) 3.4 cm (3.6 - 5.4) LVIDs (2D) 2.5 cm - LV FS (2D) 26 % (25 - 45) Aortic Annulus 2 cm (1.4 - 2.6) Ao root diameter (2D) 2.8 cm (2.1 - 3.5) LA dimension (AP) 2D 4 cm (2.3 - 3.8) LAd ISD 4CH 5.5 cm (2.9 - 5.3) LA ISD 4CH W 4 cm (2.5 - 4.5) Name Value Normal Range LA ESV SP 4CH (A/L) 63.44 ml - LA ESV SP 2CH (A/L) 61.22 ml - LA ESV BP (A/L) 63.05 ml - LA ESV SP 4CH (MOD) 59.63 ml - LA ESV SP 2CH (MOD) 58.69 ml - Name Value Normal Range MV E-wave Vmax 1.3 m/sec - MV deceleration time 239 msec - MV A-wave Vmax 1.5 m/sec - MV E:A ratio 0.8 ratio - LV septal e' Vmax 0.05 m/sec - LV lateral e' Vmax 0.06 m/sec - LV E:e' septal ratio 24 ratio - LV E:e' lateral ratio 20 ratio - Name Value Normal Range AV Vmax 2 m/sec - AV VTI 52 cm - AV peak gradient 16 mmHg - AV mean gradient 10 mmHg - LVOT diameter 2 cm - LVOT Vmax 1.2 m/sec - LVOT VTI 29 cm - LVOT peak gradient 6 mmHg - LVOT mean gradient 3.5 mmHg - DOI (VTI) 0.6 ratio - IAM (continuity Vmax) 1.9 cm2 - IAM (continuity VTI) 1.8 cm2 - Name Value Normal Range MV Vmax 1.6 m/sec - MV VTI 50 cm - MV peak gradient 10 mmHg - MV mean gradient 4.4 mmHg - MV PHT 98 msec - MVA (PHT) 2.2 cm2 - MVA (continuity VTI) 1.8 cm2 - Name Value Normal Range RAP 8 mmHg - IVC diameter 1.7 cm - Name Value Normal Range PV Vmax 1.2 m/sec - PV peak gradient 6 mmHg -
--- NOTE | 2017-12-24 08:20 | DS ---
CC: Dr. Holbrook * DISCHARGE SUMMARY: DATE OF ADMISSION: DATE OF DISCHARGE: 12/23/17. HOSPITAL COURSE: This 72-year-old woman, presented with left arm and left chest wall pain. The history is detailed in the dictated note. I note she had had a non- STEMI in 2017 and has been followed by Dr. Campos. This pain was different than her previous ischemic heart pain. She had bilateral lower extremity venous US to rule out DVT, these were negative. This was done because of an elevated D-dimer of 334. She was admitted to our telemetry unit with a plan to get a stress test the next morning. However, overnight she had a COPD exacerbation and was quite short of breath and could not even come close to lying down flat. She was treated with glucocorticoids. Then 24 hours later, she was much improved, although not at her baseline. She was treated with heparin during her hospital stay for her non-ST elevation AK. She had no further recurrences of arm pain in the hospital and is not clear if this is cardiac or not. Her troponins peaked at 0.38 on 12/22/17 to 0.21. EKG showed nonspecific changes. She had an echocardiogram on the day of discharge, which was unchanged from a prior echocardiogram of 10/29/17. Her left ventricular ejection fraction was 60% to 65%. There was [id number] concentric left ventricular hypertrophy. Because of her non-ST elevation AK, she was changed from clopidogrel to ticagrelor. I also stopped her albuterol inhaler and gave her a prescription for levalbuterol inhaler. She had been on a new inhaler prescribed by the liquor bridge operator, which she was told not to continue. She will go back to her Symbicort and levalbuterol inhaler for breakthrough. FINAL DIAGNOSES: 1. Left arm pain of uncertain etiology. 2. Chronic obstructive pulmonary disease exacerbation, improved. 3. Hypertension. 4. Chronic back pain. 5. Stage 3 chronic kidney disease. 6. Anemia. 7. Diabetes. DISCHARGE MEDICATIONS: 1. Prednisone 10 mg tapered from 5 tablets to 0 over 5 days. 2. Levalbuterol 1.25 mg inhalation every 2 hours p.r.n. via nebulizers. 3. Ticagrelor 90 mg b.i.d. 4. Umeclidinium as prescribed. 5. Budesonide and formoterol 160/4.5 one puff b.i.d. 6. Melatonin 1 at bedtime. 7. Ferrex 150 daily. 8. Gabapentin 200 mg h.s. 9. Diltiazem XT 120 mg daily. 10. Atorvastatin 20 mg daily. 11. Metoprolol succinate 50 mg daily. 12. Aspirin 81 mg daily. 13. Montelukast 10 mg daily. 14. Irbesartan 300 mg daily. 15. Furosemide 40 mg daily. 16. Vitamin B12, 500 mcg daily. I would recommend that the patient be referred for an outpatient chemical stress test when her COPD exacerbation has completely resolved. [id number]/CPS #: [id number] MTDD
[2017-12-24] MEDS ORDERED: predniSONE TAB* 20 MG PO SCH (09:00)
== END 2017-12-23 14:35 | disposition home or self-care (01) | DRG 190 ==
LOC: ED 13:53 → MEDTELE 17:10 → OBSVTOIN 12-22 08:49
PROVIDERS: ADMIT Internal Medicine; ATTEND Internal Medicine
DX: I21.4 Non-ST elevation (NSTEMI) myocardial infarction (principal); J44.1 Chronic obstructive pulmonary disease with (acute) exacerbation; I13.0 Hypertensive heart and chronic kidney disease with heart failure and stage 1 through stage 4 chronic kidney disease, or unspecified chronic kidney disease; M79.602 Pain in left arm; R07.9 Chest pain, unspecified; I50.9 Heart failure, unspecified; E11.22 Type 2 diabetes mellitus with diabetic chronic kidney disease; N18.3 Chronic kidney disease, stage 3 (moderate); D64.9 Anemia, unspecified; M54.89 Other dorsalgia; M19.90 Unspecified osteoarthritis, unspecified site; E11.51 Type 2 diabetes mellitus with diabetic peripheral angiopathy without gangrene; Z86.73 Personal history of transient ischemic attack (TIA), and cerebral infarction without residual deficits; I25.2 Old myocardial infarction; Z85.42 Personal history of malignant neoplasm of other parts of uterus; Z79.84 Long term (current) use of oral hypoglycemic drugs; Z79.02 Long term (current) use of antithrombotics/antiplatelets; Z79.82 Long term (current) use of aspirin; Z79.899 Other long term (current) drug therapy; Z87.891 Personal history of nicotine dependence; G47.33 Obstructive sleep apnea (adult) (pediatric); Z83.3 Family history of diabetes mellitus; Z82.5 Family history of asthma and other chronic lower respiratory diseases; Z82.49 Family history of ischemic heart disease and other diseases of the circulatory system; Z80.9 Family history of malignant neoplasm, unspecified
CPT/HCPCS: 36415; 71045; 80048; 80053; 80061; 82553; 82728; 83036; 83605; 83880; 84484; 85025; 85379; 85610; 85730; 93005; 93306; 93970; 94640; 99285; A9270-GY; J1100; J1644; J1940; J2920; J2930; J3475; J7512

== ENCOUNTER 2018-02-09 18:28 | Emergency (ER) | payer OTHER ==
[2018-02-09 19:24] LABS: ABS Basophils 0.2 10^3/ul (0-0.2); ABS Eosinophils 0.1 10^3/ul (0-0.6); ABS Lymphocytes 1.5 10^3/ul (1.0-4.8); ABS Monocytes 1.8 10^3/ul (0-0.8); ABS Neutrophils 12.7 10^3/ul (1.5-7.7); ABS Nucleated RBC 0 10^3/ul; Eosinophil % 0.4 % (0-6); Hematocrit 26 % (35-47); Hemoglobin 8.3 g/dl (12.0-16.0); Mean Corpuscular HGB Conc 33 g/dl (31-36); Mean Corpuscular Hemoglobin 30 pg (27-31); Mean Corpuscular Volume 93 fL (80-97); Mean Platelet Volume 8.6 um3 (7.4-10.4); Nucleated Red Blood Cells % 0; Platelet Count 395 10^3/ul (150-450); Red Blood Count 2.76 10^6/ul (4.00-5.40); Red Cell Distribution Width 15 % (10.5-15); White Blood Count 16.3 10^3/ul (3.5-10.8)
[2018-02-09 19:29] LABS: EGFR Non-African American 18.7 (>60)
--- OUTSIDE RECORDS SUMMARY | 2018-02-09 19:58 | XMS REPORT ---
:1945 External Reference #:[id number] Author Organization [facility] Address [address] [place] [address] Phone [phone] Care Team Providers Name Role Phone Prosper Holbrook M.D. Primary Care Physician Unavailable Payers Type Date Identification Numbers Payment Provider Subscriber Commercial Policy Number: [id number] [employer] Abby Lambert PayID: [id number] [id number] [place] [address] Problems Date Description Provider Status Onset: 10/11/2014 Moderate chronic obstructive Janessa Moran O.D. Active pulmonary disease Onset: 10/11/2014 Obstructive emphysema Janessa Moran O.D. Active Onset: 10/11/2014 Essential hypertension Janessa Moran O.D. Active Onset: 10/11/2014 Hypercholesterolemia Janessa Moran O.D. Active Onset: 10/11/2014 Cataract Janessa Moran O.D. Active Onset: 10/11/2014 Partial retinal artery occlusion Janessa Moran O.D. Active Onset: 10/11/2014 Nuclear senile cataract Janessa Moran O.D. Active Onset: 12/18/2017 Arterial retinal branch occlusion Juan Carlos Shelton M.D. Active Onset: 12/18/2017 Visual field defect Juan Carlos Shelton M.D. Active Family History Date Family Member(s) Problem(s) [...] Active Tablets 81mg Unknown 0000 Vitamin B12 / Active Tablets 100mcg Unknown 0000 Ventolin HFA / Active Aerosol 108(90Base Darlow, 0000 ) mcg/Act Prosper A M.D. Gabapentin / Active Capsules 100mg [place]low, 0000 Prosper A M.D. Incruse Ellipta / Active Aerosol 62.5mcg/In Blessing, 0000 h Eunice M.D. Cartia XT / Active Caps ER 120mg Darlow, 0000 24HR Prosper A M.D. Symbicort / Active Aerosol 160-4.5mcg Blessing, 0000 /Act Eunice M.D. Furosemide / Active Tablets 40mg [place], 0000 Prosper A M.D. Atorvastatin Calcium / Active Tablets 20mg Darlow, 0000 Prosper A M.D. Montelukast Sodium / Active Tablets 10mg [place]low, 0000 Prosper A M.D. Brilinta / Active Tablets 90mg 2x a Unknown 0000 day Proair HFA / Hx Aerosol 108(90Base Unknown 0000 - ) mcg/Act 2017 Ipratropium / Hx Solution 0.5-2.5(3) Unknown [place]/Albuterol 0000 - mg/3ML Sulfate 2017 Lovastatin / Hx Tablets 20mg Unknown 0000 - 2017 Hydrochlorothiazide / Hx Tablets 12.5mg Unknown 0000 - 2017 Clopidogrel Bisulfate / Hx Tablets 75mg Mackenzie, 0000 - Silviu 12/25/ M.D. 2017 Results Description No Information Procedures Date CPT Code Description Status 12/18/2017 56295 Visual Field Exam Extended Completed 12/18/2017 02803 Est Patient Comprehensive Exam Completed 11/18/2017 46338 Scanning Computerized Opthalmic Diagnostic Posterior Completed Seg Retina 11/18/2017 44342 New Patient Comprehensive Exam Completed 10/11/2014 07982 Fundus Photography With Interpretation And Report Completed 10/11/2014 62187 Est Patient Comprehensive Exam Completed 10/05/2012 22756 Est Patient Comprehensive Exam Completed 10/15/2011 69945 Fundus Photography With Interpretation And Report Completed 10/15/2011 06379 Determination Of Refractive State Completed 10/15/2011 61554 New Patient Comprehensive Exam Completed
[2018-02-09] MEDS ORDERED: Acetaminophen TAB* 325 MG PO ONE (20:04)
--- NOTE | 2018-02-09 20:09 | ED ---
Lower Extremity - HPI Summary HPI Summary: 72-year-old female presents with right foot pain for the past 2 days. States she turned her foot and felt a snap. She's been having pain in her mid foot. She states she has not be able to place weight on the area since. States she's been living in a chair and is been urinating on himself for the past 2 days. She states she normally gets around with a walker. She denies any previous fracture to the area. She is not diabetic. No fever. No chest pain or shortness breath. no other complaint. She lives alone. - History of Current Complaint Chief Complaint: EDExtremityLower Stated Complaint: RT FT PAIN Time Seen by Provider: 02/09/18 18:47 Pain Intensity: 10 - Allergies/Home Medications Allergies/Adverse Reactions: Allergies Allergy/AdvReac Type Severity Reaction Status Date / Time No Known Allergies Allergy Verified 02/09/18 18:40 PMH/Surg Hx/FS Hx/Imm Hx Endocrine/Hematology History: Denies: Hx Diabetes Cardiovascular History: Reports: Hx Congestive Heart Failure, Hx Hypercholesterolemia, Hx Hypertension, Hx Peripheral Vascular Disease Denies: Hx Angina, Hx Coronary Artery Disease, Hx Myocardial Infarction, Hx Pacemaker/ICD, Hx Valvular Heart Disease Respiratory History: Reports: Hx Chronic Obstructive Pulmonary Disease (COPD) - 4L home O2, Hx Pneumonia, Other Respiratory Problems/Disorders Denies: Hx Asthma History: Reports: Other Problems/Disorders - chronic renal insufficiency Musculoskeletal History: Reports: Hx Arthritis - LOWER BACK Sensory History: Reports: Hx Contacts or Glasses Denies: Hx Hearing Aid Opthamlomology History: Reports: Hx Contacts or Glasses Psychiatric History: Denies: Hx Panic Disorder - Cancer History Cancer Type, Location and Year: Cervical 2016, hysterectomy performed, was curative Hx Chemotherapy: No Hx Radiation Therapy: No - Surgical History Surgery Procedure, Year, and Place: CAROTID ARTERY STENT 2009 AT [facility]; lap hysterectomy at [facility] [place] Hx Anesthesia Reactions: No - Immunization History Date of Tetanus Vaccine: unk Date of Influenza Vaccine: fall 2016 Infectious Disease History: No Infectious Disease History: Denies: Traveled Outside the [place] in Last 30 Days - Family History Known Family History: Positive: Other - POS: [place], throat - Social History Alcohol Use: None Substance Use Type: Reports: None Hx Tobacco Use: Yes Smoking Status (MU): Former Smoker Type: Cigarettes Amount Used/How Often: 1 PPD Length of Time of Smoking/Using Tobacco: 40 YRS. Have You Smoked in the Last Year: Yes Review of Systems Negative: Fever Negative: Chest Pain Negative: Shortness Of Breath Positive: Myalgia - right foot pain All Other Systems Reviewed And Are Negative: Yes Physical Exam Triage Information Reviewed: Yes Vital Signs On Initial Exam: Initial Vitals Temp Pulse Resp BP Pulse Ox 98 F 104 18 119/61 99 02/09/18 18:38 02/09/18 18:38 02/09/18 18:38 02/09/18 18:38 02/09/18 18:38 Vital Signs Reviewed: Yes Appearance: Positive: Well-Appearing Skin: Positive: Warm, Dry Head/Face: Positive: Normal Head/Face Inspection Eyes: Positive: Normal, Conjunctiva Clear ENT: Positive: Pharynx normal Respiratory/Lung Sounds: Positive: Clear to Auscultation, Breath Sounds Present Cardiovascular: Positive: Normal, RRR Musculoskeletal: Positive: Limited @ - right foot, Edema Right - foot, Other - neurovascular intact, good pulses, capillary refill<2 secs, tenderness over right midfoot Neurological: Positive: Normal Psychiatric: Positive: Normal Diagnostics - Vital Signs Vital Signs Temp Pulse Resp BP Pulse Ox 02/09/18 18:38 98 F 104 18 119/61 99 - Laboratory Lab Results: Lab Results 02/09/18 02/09/18 02/09/18 Range/Units 19:01 19:01 19:01 WBC 16.3 H (3.5-10.8) 10^3/ul RBC 2.76 L (4.00-5.40) 10^6/ul Hgb 8.3 L (12.0-16.0) g/dl Hct 26 L (35-47) % MCV 93 (80-97) fL MCH 30 (27-31) pg MCHC 33 (31-36) g/dl RDW 15 (10.5-15) % Plt Count 395 (150-450) 10^3/ul MPV 8.6 (7.4-10.4) um3 Neut % (Auto) 78.0 (38-83) % Lymph % (Auto) 9.0 L (25-47) % Piute % (Auto) 11.2 H (0-7) % Eos % (Auto) 0.4 (0-6) % Baso % (Auto) 1.4 (0-2) % Absolute Neuts (auto) 12.7 H (1.5-7.7) 10^3/ul Absolute Lymphs (auto) 1.5 (1.0-4.8) 10^3/ul Absolute Monos (auto) 1.8 H (0-0.8) 10^3/ul Absolute Eos (auto) 0.1 (0-0.6) 10^3/ul Absolute Basos (auto) 0.2 (0-0.2) 10^3/ul Absolute Nucleated RBC 0 10^3/ul Nucleated RBC % 0 Sodium 137 (135-145) mmol/L Potassium 4.7 (3.5-5.0) mmol/L Chloride 99 L (101-111) mmol/L Carbon Dioxide 26 (22-32) mmol/L Anion Gap 12 H (2-11) mmol/L BUN 45 H (6-24) mg/dL Creatinine 2.53 H (0.51-0.95) mg/dL Est GFR ( Amer) 22.7 (>60) Est GFR (Non-Af Amer) 18.7 (>60) BUN/Creatinine Ratio 17.8 (8-20) Glucose 106 H (70-100) mg/dL Lactic Acid 1.3 (0.5-2.0) mmol/L Calcium 9.9 (8.6-10.3) mg/dL Total Bilirubin 0.40 (0.2-1.0) mg/dL AST 21 (13-39) U/L ALT 12 (7-52) U/L Alkaline Phosphatase 123 H (34-104) U/L Total Creatine Kinase 400 H (10-223) U/L C-Reactive Protein 67.34 H (<8.01) mg/L Total Protein 7.6 (6.4-8.9) g/dL Albumin 3.7 (3.2-5.2) g/dL Globulin 3.9 (2-4) g/dL Albumin/Globulin Ratio 0.9 L (1-3) Result Diagrams: 02/09/18 19:01 02/09/18 19:01 Lab Statement: Any lab studies that have been ordered have been reviewed, and results considered in the medical decision making process. - Radiology foot Xray Interpretation: Positive (See Comments) - possible 3rd metacarpal fx Radiology Interpretation Completed By: ED Physician Re-Evaluation - Re-Evaluation First Eval Re-Evaluation Time: 09:30 Comment: patient able to ambulate in ED with walker and cam walking boot Lower Extremity Course/Dx - Course Course Of Treatment: 72-year-old female presents with right foot pain for the past 2 days. States she turned her foot and felt a snap. She's been having pain in her mid foot. She states she has not be able to place weight on the area since. States she's been living in a chair and is been urinating on himself for the past 2 days. She states she normally gets around with a walker. She denies any previous fracture to the area. She is not diabetic. No fever. No chest pain or shortness breath. no other complaint. She lives alone. On exam has tenderness in the midfoot. Neurovascularly intact. X-ray read by me and Dr. Gonzalez as potential third metacarpal fracture. Labs similar to previous labs. Patient has been on steroidss so that explain his leukocytosis. - Diagnoses Differential Diagnosis/HQI/PQRI: Positive: Fracture (Closed), Sprain, Strain Provider Diagnoses: Right foot pain Discharge - Sign-Out/Discharge Documenting (check all that apply): Patient Departure - Discharge Plan Condition: Good Disposition: HOME Prescriptions: HYDROcodone/ACETAMIN 5-325 MG* [[place] 5-325 TAB*] 1 tab PO Q6H PRN #10 tab MDD 4 PRN Reason: Pain Patient Education Materials: Foot Fracture in Adults (ED) Referrals: Prosper Holbrook MD [Primary Care Provider] - Jordi Reyes MD [Medical Doctor] - Additional Instructions: keep boot on area ice, elevate Take Tylenol every 6 hours as needed for pain, use norco every 6-8 hours as needed for break through pain Follow up with ortho Return to ED if develop any new or worsening symptoms - Billing Disposition and Condition Condition: GOOD Disposition: Home
[2018-02-09] MEDS ORDERED: oxyCODONE TAB* 5 MG TAB PO ONE (21:25)
[2018-02-09 23:57] VITALS: BP 165/72
--- NOTE | 2018-02-10 07:47 | RAD ---
HISTORY: right ankle pain COMPARISONS: None VIEWS: 6 , Frontal, lateral, and oblique views of the right foot and right ankle FINDINGS: BONE DENSITY: Normal. BONES: There is no displaced fracture. There are small calcaneal enthesophytes . The questionable third metatarsal fracture noted in the preliminary report is not appreciated on the submitted images. JOINTS: There is mild osteoarthritis of the midfoot and first MTP joint. ALIGNMENT: There is hallux valgus. SOFT TISSUES: There is peripheral arterial calcification. OTHER FINDINGS: None. IMPRESSION: 1. PERIPHERAL ARTERIAL DISEASE. 2. MILD OSTEOARTHRITIS. 3. HALLUX VALGUS. 4. NO ACUTE OSSEOUS INJURY OF THE RIGHT FOOT OR RIGHT ANKLE. IF SYMPTOMS PERSIST, RECOMMEND REPEAT IMAGING. R2
--- NOTE | 2018-02-11 09:13 | ED ---
Progress - Progress Note Progress Note: Patient's final x-ray read "impression: #1. Peripheral arterial disease. #2. Mild osteoarthritis. #3. Hallux valgus. #4. No acute osseous injury of the right foot or right ankle. If symptoms persist, recommend repeat imaging." Patient was diagnosed with a fracture of the third tarsal. She was placed in a cam boot. Although patient does not have a fracture which is a discrepancy from her original diagnosis, her injury and lack of weightbearing without pain warrants treatment with boot along w/ ortho f/u which she has to assess for soft tissue injury and so no change will be made at this time. Patient was advised to follow-up with Dr. Reyes at d/c. Re-Evaluation - Re-Evaluation First Eval Re-Evaluation Time: 09:30 Comment: patient able to ambulate in ED with walker and cam walking boot Course/Dx - Course Course Of Treatment: 72-year-old female presents with right foot pain for the past 2 days. States she turned her foot and felt a snap. She's been having pain in her mid foot. She states she has not be able to place weight on the area since. States she's been living in a chair and is been urinating on himself for the past 2 days. She states she normally gets around with a walker. She denies any previous fracture to the area. She is not diabetic. No fever. No chest pain or shortness breath. no other complaint. She lives alone. On exam has tenderness in the midfoot. Neurovascularly intact. X-ray read by me and Dr. Gonzalez as potential third metacarpal fracture. Labs similar to previous labs. Patient has been on steroidss so that explain his leukocytosis. - Diagnoses Provider Diagnoses: Right foot pain Discharge - Sign-Out/Discharge Documenting (check all that apply): Post-Discharge Follow Up - Discharge Plan Condition: Good Disposition: HOME Prescriptions: HYDROcodone/ACETAMIN 5-325 MG* [[place] 5-325 TAB*] 1 tab PO Q6H PRN #10 tab MDD 4 PRN Reason: Pain Patient Education Materials: Foot Fracture in Adults (ED) Referrals: Prosper Holbrook MD [Primary Care Provider] - Jordi Reyes MD [Medical Doctor] - Additional Instructions: keep boot on area ice, elevate Take Tylenol every 6 hours as needed for pain, use norco every 6-8 hours as needed for break through pain Follow up with ortho Return to ED if develop any new or worsening symptoms - Billing Disposition and Condition Condition: GOOD Disposition: Home
== END 2018-02-09 23:00 | disposition home or self-care (01) ==
LOC: ED 18:28
DX: M79.671 Pain in right foot (principal); I73.9 Peripheral vascular disease, unspecified; M19.071 Primary osteoarthritis, right ankle and foot; M20.11 Hallux valgus (acquired), right foot; Z87.891 Personal history of nicotine dependence
CPT/HCPCS: 36415; 80053; 82550; 83605; 85025; 86140; 99282

== ENCOUNTER 2018-02-27 11:22 | Inpatient (IN) | payer MEDICARE, OTHER ==
--- OUTSIDE RECORDS SUMMARY | 2018-02-27 11:43 | XMS REPORT ---
:1945 External Reference #:[id number] Author Organization [facility] Address [address] [place] [address] [place] [address] Phone [phone] Care Team Providers Name Role Phone Prosper Holbrook MD Primary Care Physician Unavailable Payers Type Date Identification Numbers Payment Provider Subscriber Medicare Primary Expires: Policy Number: Medicare Abby Lambert 2017 [id number] PayID: [id number] [address] [place] [address] Medigap Part B Expires: 2016 Policy Number: [facility] [id number] [facility] PayID: [id number] [place] [address] [address] [place] [address] Commercial Effective: Policy Number: [id number] Abby Lambert 2015 [id number] (Oon) Expires: 2015 Group Number: [id number] [address] [address] Group Name: [place] [address] PayID: [id number] Medigap Part B Policy Number: [id number] [employer] Medicare Abby Lambert PayID: [id number] [address] [place] [address] Problems Date Description Provider Status Onset: 06/01/2013 [...] sleep apnea syndrome Eunice Funk MD Active Onset: 12/22/2017 Chronic obstructive pulmonary disease w David Agrawal M.D. Active (acute) exacerbation Onset: 12/22/2017 Type 2 diabetes mellitus David Agrawal M.D. Active Onset: 12/21/2017 Essential hypertension STAS Brandon Active Onset: 12/21/2017 Chronic kidney disease stage 3 STAS Brandon Active Onset: 12/21/2017 Pain in left arm STAS Brandon Active Family History Date Family Member(s) Problem(s) Comments General Cancer mother, sister General Diabetes sister General Chronic Obstructive Pulmonary father Disease (COPD) General Emphysema father Father due to unrelated to () cardiac issues Mother due to unrelated to () cardiac issues Siblings 3 2 sisters, 1 brother 1 sister cardiac stents, still living 1 sister [place] 2014 still living 1 brother, cardiac issues, still living Social History Type Date Description Comments Marital Status Lives With Spouse Occupation Retired ETOH Use Denies alcohol use [...] Form Strength Qnty SIG Indications Ordering Provider Brilinta 01/06/ Active Tablets 90mg 180tab 1 tab by Qutadaren 2017 s mouth twice S. a day Micheal Campos Cartia XT 11/06/ Active Caps ER 120mg 90caps 1 by mouth Qutaybchris 2018 24HR every day Belinda Campos M.D. Incruse 09/05/ Active Aerosol 62.5mcg/In 30unit inhale one J44.9 Eunice Moya 2017 h s puff by MD Blessing mouth every day Symbicort 01/25/ Active Aerosol 160-4.5mcg 30.6gm inhale one J44.9 Eunice 2014 /Act puff by MD Blessing mouth twice daily Aspirin / Active Tablets DR 81mg 1 po qd Unknown 0000 Avapro / Active Tablets 300mg 30tabs 1 po qd Unknown 0000 Toprol XL / Active Tablets ER 25mg 90tabs 2 tabs po Unknown 0000 24HR qd Nebulizer / Active Device use for Unknown 0000 albuterol nebulized solution up to 4 times a day. Gabapentin / Active Capsules 100mg 2 po qd @ Unknown 0000 hs Ventolin HFA / Active Aerosol 108(90Base 1 puff po Darlow, 0000 ) mcg/Act as needed Prosper Siegel MD Iron / Active Tablets 325(65Fe) 1 by mouth Unknown 0000 mg every day Voltaren / Active Gel 1% apply 2 Unknown 0000 grams twice daily as needed for pain in back Oxygen / Active Misc please use R09.02 0000 o2 at 3 MD Blessing liters, pls provide wiht portable o2 concentrato r. J44.9 Montelukast Sodium Active Tablets 10mg 1 by mouth Unknown every day Lasix Active Tablets 40mg 1 by mouth Unknown every day Nicotine Polacrilex 06/07/2015 - Hx Lozenges 4mg 60u 1 by mouth F1 Eunice 11/02/2015 nit every 4 7. lili Funk hours as 21 MD needed 0 Nicotine 06/07/2015 - Hx Patches 21mg/24 30u 1 patch F1 Eunice 11/02/2015 24HR HR nit over skin 7. lili Funk every day ( 21 pt does not 0 use) Irbesartan 06/06/2015 - Hx Tablets 300mg 1 by mouth Unknown 06/07/2015 every day Prednisone 03/29/2015 - Hx Tablets 20mg 7ta 20mg daily J4 Eunice 06/06/2015 bs 4Salazar Bauer MD Spiriva Respimat 03/29/2015 - Hx Aerosol 2.5mcg/ 4un inhale two J4 Eunice 11/05/2017 Act its spray(s) by 4. Blessing, mouth once 9 MD daily Hydrochlorothiazide - Hx Tablets 12.5mg 90t 1 po qd Unknown 03/16/2017 abs Flovent HFA - Hx Aerosol 44mcg/A 2 puffs po Unknown 12/05/2014 ct bid Tramadol HCL - Hx Tablets 50mg 100 qid prn Unknown 11/30/2014 tab s Pro Air - Hx Aerosol 108(90B 1un 2 puffs po Unknown 2015 ase) its qid prn mcg/Act Lovastatin - Hx Tablets 20mg 90t 1 po qd Unknown 03/16/2017 abs Fish Oil - Hx 1 po qd Unknown 09/30/2016 Duoneb - Hx Solution 0.5-2.5 bid. up to Unknown 12/05/2014 (3)mg/3 tid prn in ML nebulizer Clopidogrel Bisulfate - Hx Tablets 75mg 1 by mouth Unknown 01/06/2018 every day Immunizations CPT Code Status Date Vaccine Lot # [id number] Given 06/07/2015 Fluvirin Im 3Yrs And Older Vital Signs Date Vital Result Comment 02/13/2018 Height 60 inches 5'0" Heart Rate 52 /min Respiratory Rate 12 /min Body Temperature 98.3 F Pain Level 0 11/06/2017 Height 60 inches 5'0" Weight 172.00 [...] Lyme Disease Interpretation . () 4 1 Earth Moving Machine Operator: [id number] 2 No bands detected 3 No bands [...] screening test (e.g., EIA). Test Performed by: [facility] D[facility] of Lab Med and Pathology [address] [place], [place] [id number] Oxidation Engineer: Eleazar Monzon III, M.D. Procedures Date CPT Code Description Status 12/23/2017 88869 ECHO Transthorasic Realtime 2D W Doppler & Color Flow Completed Hosp 11/06/2017 20733 EKG Tracing & Interpretation Completed 10/29/2017 10985 ECHO Transthorasic Realtime 2D W Doppler & Color Flow Completed Hosp 02/17/2017 14647 ECHO Transthorasic Realtime 2D W Doppler & Color Flow Completed Hosp 02/17/2017 15852 EKG, Interpretation Only Completed 02/16/2017 96670 EKG, Interpretation Only Completed 02/06/2017 70040 EEG Recording In Coma Or Sleep Only Completed 02/06/2017 02369 ECHO Transthorasic Realtime 2D W Doppler & Color Flow Completed Hosp 12/10/2016 89362 ECHO Transthorasic Realtime 2D W Doppler & Color Flow Completed Hosp 11/25/2016 47262 Pulmonary Stress Test Simple Completed 10/01/2016 67923 EKG Tracing & Interpretation Completed 12/06/2015 67230 Polysomnography Sleep Staging 4+ Parameters Completed 11/17/2015 70461 EKG Tracing & Interpretation Completed 08/22/2015 58577 EKG Tracing & Interpretation Completed 01/25/2015 24389 Pulmonary Stress Test Simple Completed 12/29/2014 94715 Treadmill Interp/Report Only Completed 12/29/2014 10750 Stress Test Supervsn W/Out I/R Completed 12/14/2014 36959 ECHO Transthoracic, Real-Time 2D With Doppler And Color Completed Flow 12/08/2014 40681 Pulmonary Function><Bronchodil Completed 12/06/2014 79891 EKG Tracing & Interpretation Completed Encounters Type Date Location Provider CPT E/M Dx [facility] 6[address] J44.1 11:11a [facility]ists [facility] N18.3 M79.602 E11.22 Office Visit 12/[facility]2017 [facility]rawal, 44636 M79.602 Hospitalists Micheal N18.3 E11.22 I10 J44.1 Office Visit 12/21/2017 11:10a [facility] Elizabeth, 12016 M79.602 Assoc, Hospitalists [place] N18.3 I10 J44.9 Office Visit 12/21/2017 9:23a [facility] [place] [address] I21.4 [facility] Office Visit 11/06/2017 2:20p [facility] S. [address] I10 Micheal Campos I50.32 E78.5 J44.1 G47.33 R94.31 Office Visit 11/01/2017 9:15a [facility] Elizabeth, 43944 J96.21 Assoc, Hospitalists [place] J96.22 J44.9 I50.33 Office Visit 10/31/2017 9:14a [facility] Elizabeth, 20019 J96.21 Assoc,pc Hospitalists [place] J96.22 J44.9 I50.33 Office Visit 10/30/2017 [facility] Lilia Bhatia, 36521 J96.21 9:13a Assoc,pc SPACE SCHED[employer]ER Hospitalists J96.22 J44.9 I50.33 Office Visit 10/29/2017 9:12a [facility] Richard Kc D.O. 93423 J96.21 J96.22 J44.9 I50.33 Office Visit 10/28/2017 9:12a [facility] Assoc,pc Norman Borjas, 28226 J44.9 Hospitalists N.P. I50.33 I10 E78.5 Office Visit 09/05/2017 9:00a [facility] [place] [address] J44.9 Services Of [employer] J96.10 G47.33 J98.4 E66.09 Office Visit 05/20/2017 7:15a [facility] [place] [address] J44.9 [facility] [employer] J96.10 R91.1 Office Visit 03/17/2017 9:30a [facility] [place] [address] J44.9 [facility] [employer] J96.21 J96.22 Office Visit 03/09/2017 3[facility] [place] [address] J44.1 Hospitalists R41.82 J43.9 J96.02 Office Visit 03/09/2017 [facility] [address] J96.21 Assoc, Louis Burton J96.22 J81.0 I50.33 Office Visit 03/08/2017 3:08p [facility], [place] [address] J96.22 Hospitalists J96.21 N17.8 N18.3 Office Visit 03/07/2017 7:00a [facility], Richard Cohen 23468 J96.21 Hospitalists Roly Kc J96.22 J81.0 I50.33 Office Visit 02/26/2017 8:28p [facility], Clarissa Lopez, 89713 J44.1 Hospitalists N.P. J96.11 I21.4 Office Visit 02/25/2017 8:27p [facility], Clarissa Lopez, 14685 J44.1 Hospitalists N.P. J96.11 I21.4 Office Visit 02/24/2017 8:26p [facility] Assoc, Kelly Goldberg, 36714 I21.4 Hospitalists DCyndy J44.1 J96.11 Office Visit 02/23/2017 8:26p [facility], [place] [address] I21.4 Hospitalists J44.1 J96.11 Office Visit 02/22/2017 8:25p [facility] [address] I21.4 Hospitalists J44.1 J96.11 Office Visit 02/21/2017 12:08p [facility] Edna Gooden M.D. 70801 I25.10 [facility] Office Visit 02/21/2017 8:25p [facility] [address] I21.4 Hospitalists J44.1 J96.11 Office Visit 02/20/2017 8:24p [facility] [address] I21.4 Hospitalists J44.1 J96.11 Office Visit 02/20/2017 1:38p [facility] Qutaybeh S. Andres, 00129 I21.4 M.D. J44.1 N18.9 D64.9 Office Visit 02/19/2017 1:36p [facility] Qutaybeh S. Maghaydah, 00339 I21.4 M.DJose I50.9 J44.1 D64.9 Office Visit 02/19/2017 8:24p [facility] [address] I21.4 Hospitalists J44.1 J96.11 Office Visit 02/18/2017 8:23p [facility] [address] I21.4 Hospitalists J44.1 J96.11 Office Visit 02/18/2017 2:49p [facility] Rajeev Jiang, 27420 I21.4 M.DJose Office Visit 02/17/2017 8:22p [facility] [address] I21.4 Hospitalists J44.1 J96.11 Office Visit 02/16/2017 8:22p [facility] [address] I21.4 Hospitalists J44.1 J96.11 Office Visit 02/16/2017 12:46p [facility] Yadiel Grant M.D. 92112 I21.4 I12.9 N18.9 J44.1 J18.9 I47.2 R94.31 I31.3 I50.9 Office Visit 02/14/2017 Diego AvalosChaudhry, 60074 J96.01 7:13a Assoc,pc [employer] Hospitalists J96.22 J44.1 I10 Office Visit 02/13/2017 Diego Bhatia, 67544 J96.01 7:12a Assoc,pc SPACE SCHEDULER Hospitalists J96.22 J44.1 I10 Office Visit 02/12/2017 Diego AvalosChaudhry, 61001 J96.01 7:12a Assoc,pc SPACE SCH[employer]ER Hospitalists J96.22 J44.1 I10 Office Visit 02/11/2017 8:00a [facility] AlexisnidaNoe, 52375 J96.01 Assoc,pc PA Hospitalists J96.22 J44.1 I10 Office Visit 02/10/2017 7:56a [facility] AlexisnidaNoe, 98723 J96.01 Assoc,pc PA Hospitalists J96.22 J44.1 I10 Office Visit 02/09/2017 9:01a [facility] [place] [address] J96.22 Services Of [facility] J96.21 J44.1 J18.9 Office Visit 02/09/2017 7:56a [facility] Vee HersonNoe, 65584 J96.01 Assoc,pc PA Hospitalists J96.22 J44.1 I10 Office Visit 02/08/2017 7:55a [facility] 75246 J96.01 Assoc,pc PA Hospitalists J96.22 J44.1 I10 Office Visit 02/08/2017 10:41a [facility] [address] J96.22 Hospitalists J96.21 J44.1 J18.9 Office Visit 02/07/2017 10:45a [facility] [address] J96.22 Hospitalists J96.21 J18.9 Office Visit 02/06/2017 7:54a [facility] [place]c, 078[address] J44.1 Hospitalists D.OJose J96.22 J96.01 Office Visit 02/06/2017 7:53a [facility] Gerardo Amin, 80361 J44.1 Hospitalists Micheal E78.5 I10 Office Visit 02/05/2017 7:52a [facility] Norman Borjas, 87948 J44.1 Hospitalists N.P. E78.5 I10 Office Visit 12/11/2016 9:56a [facility] Kelly Goldberg, 40827 K92.2 Hospitalists D.OJose J43.9 I73.9 N18.9 Office Visit 12/10/2016 9:55a [facility] Carmencita Collado, 56527 K92.2 Hospitalists I73.9 J43.9 N18.9 Office Visit 11/25/2016 9:30a [facility] Eunice Funk [place] G[address] J44.9 Services Of [facility] G47.33 R09.02 Z99.81 Office Visit 10/01/2016 9:00a [facility] Belinda Campos, 40795 G47.33 MOlive J44.9 I10 F17.210 E66.09 E78.4 Office Visit 01/12/2016 11:04a [facility] [place] [address] J44.9 [facility] [employer] G47.33 Office Visit 01/12/2016 3:40p [facility], [place] [address] J44.9 Hospitalists N18.3 I10 Z72.0 Office Visit 01/11/2016 3:39p [facility], [place] [address] J44.9 Hospitalists N18.3 I10 Z72.0 Office Visit 01/11/2016 11:03a [facility] [place] [address] J44.9 [facility] [employer] G47.33 Office Visit 01/05/2016 10:00a [facility] [place] [address] G47.33 [facility] [employer] E66.09 J44.9 Office Visit 11/17/2015 2:00p [facility] SJose 40185 J44.9 Josep Campos M.D. G47.9 F17.210 I10 E78.4 Z01.810 Z30.2 Office Visit 11/03/2015 9:15a [facility] [place] [address] J44.9 Services Of [facility] G47.9 F17.210 E66.09 Office Visit 09/06/2015 10:00a [facility] [place] [address] J44.9 Services [facility] F17.210 Office Visit 08/22/2015 2:00p [facility] Leonortayb S. Andres, 35406 J44.9 M.DJose F17.210 I10 E78.4 Office Visit 06/07/2015 3:30p [facility] [place] [address] J44.9 Services [facility] F17.210 Office Visit 03/29/2015 9:15a [facility] [place] [address] J44.9 Services Of [facility] F17.210 Z01.818 Office Visit 01/25/2015 11:00a [facility] [place] [address] V72.84 Services [facility] 496 305.1 Office Visit 01/06/2015 10:40a [facility] Qutaybeh S. Xiomaraydah, 33594 401.1 M.D. V72.83 272.4 305.1 496 Office Visit 12/06/2014 10:20a [facility] Qutayb S. Xiomaraydah, 28558 401.9 M.D. 272.4 305.1 V72.83 786.05 Office Visit 02/04/2013 3:00p [facility] Guido Mitchell 76778 722.52 Of [facility] Micheal Office Visit 11/21/2009 12:30a [facility]yenifer Viramontes M.D. 30115 434.91 Hospitalists 401.9 272.4 Office Visit 11/20/2009 1:15a [facility],yenifer Viramontes M.D. 56862 434.91 Hospitalists 401.9 272.4 Office Visit 11/19/2009 12:45a [facility],yenifer Viramontes M.D. 35549 434.91 Hospitalists 401.9 272.4 Office Visit 11/18/2009 2:00a [facility],yenifer Viramontes M.D. 51380 434.91 Hospitalists Plan of Care Future Appointment(s):02/17/2018 1:30 pm - Clarissa Lopez NJosePJose at [facility]03/11/2018 10:30 am - Eunice Funk MD at [facility]02/13/2018 - Amandeep Youngblood, MDM77.41 Metatarsalgia, right footFollow up:Follow Up: As needed
--- NOTE | 2018-02-27 11:58 | ED ---
Throat Pain/Nasal Congestion - HPI Summary HPI Summary: The pt is a 72 y/o female accompanied by her daughter [facility]/o epistaxis without active bleeding from the L nose since yesterday night. She was sent by Dr. Bael. Rubio from the Hematology and Oncology Department. Her daughter notes confusion upon standing. The pt had similar sx 6 months ago. She uses 4L O2 at home and a walker to ambulate. The pt recently had a stress test, bone marrow biopsy and pharynx excision due to anemia. - History of Current Complaint Chief Complaint: EDEpistaxis Time Seen by Provider: 02/27/18 11:46 Hx Obtained From: Patient, Family/Document Clerk - Daughter Onset/Duration: Sudden Onset, Resolved - No active bleeding at bedside, Worse Since - Last night - Allergies/Home Medications Allergies/Adverse Reactions: Allergies Allergy/AdvReac Type Severity Reaction Status Date / Time No Known Allergies Allergy Verified 02/27/18 11:42 Home Medications: Home Medications Aspirin EC TAB* [Ecotrin EC Low Dose 81 MG*] 81 mg PO DAILY 02/27/18 [History Confirmed 02/27/18] Atorvastatin* [Lipitor*] 20 mg PO DAILY 02/27/18 [History Confirmed 02/27/18] Budesonide/Formote 160/4.5(NF) [Symbicort 160/4.5 (NF)] 1 puff INH BID 02/27/18 [History Confirmed 02/27/18] Cyanocobalamin TAB* [Vitamin B12 TAB*] 500 mcg PO DAILY 02/27/18 [History Confirmed 02/27/18] Gabapentin CAP(*) [Neurontin 100 mg CAP(*)] 200 mg PO BEDTIME 02/27/18 [History Confirmed 02/27/18] Irbesartan (NF) [Avapro (NF)] 300 mg PO DAILY 02/27/18 [History Confirmed ] Melatonin 5 - 10 mg PO BEDTIME 02/27/18 [History Confirmed 02/27/18] Ticagrelor* [Brilinta*] 90 mg PO BID 02/27/18 [History Confirmed 02/27/18] dilTIAZem HCl [Cartia Xt] 120 mg PO DAILY 02/27/18 [History Confirmed 02/27/18] PMH/Surg Hx/FS Hx/Imm Hx Previously Healthy: No Endocrine/Hematology History: Denies: Hx Diabetes Cardiovascular History: Reports: Hx Angina, Hx Congestive Heart Failure, Hx Hypercholesterolemia, Hx Hypertension, Hx Peripheral Vascular Disease Denies: Hx Coronary Artery Disease, Hx Myocardial Infarction, Hx Pacemaker/ ICD, Hx Valvular Heart Disease Respiratory History: Reports: Hx Chronic Obstructive Pulmonary Disease (COPD) - 4L home O2, Hx Pneumonia, Other Respiratory Problems/Disorders Denies: Hx Asthma History: Reports: Other Problems/Disorders - chronic renal insufficiency Musculoskeletal History: Reports: Hx Arthritis - LOWER BACK Sensory History: Reports: Hx Contacts or Glasses Denies: Hx Hearing Aid Opthamlomology History: Reports: Hx Contacts or Glasses Psychiatric History: Denies: Hx Panic Disorder - Cancer History Cancer Type, Location and Year: Cervical 2016, hysterectomy performed, was curative Hx Chemotherapy: No Hx Radiation Therapy: No - Surgical History Surgery Procedure, Year, and Place: CAROTID ARTERY STENT 2009 AT [facility]; lap hysterectomy at [facility] Hx Anesthesia Reactions: No - Immunization History Date of Tetanus Vaccine: unk Date of Influenza Vaccine: fall 2016 Infectious Disease History: No Infectious Disease History: Denies: Traveled Outside the [place] in Last 30 Days - Family History Known Family History: Positive: Other - POS: CA, throat - Social History Occupation: Retired Lives: Alone Alcohol Use: None Substance Use Type: Reports: None Hx Tobacco Use: Yes Smoking Status (MU): Former Smoker Type: Cigarettes Amount Used/How Often: 1 PPD Length of Time of Smoking/Using Tobacco: 40 YRS. Have You Smoked in the Last Year: Yes Review of Systems Positive: Fever Positive: Epistaxis Positive: Abdominal Pain - RUQ and RLQ . Negative: Vomiting, Diarrhea, Nausea All Other Systems Reviewed And Are Negative: Yes Physical Exam - Summary Physical Exam Summary: Appearance: Well appearing, no pain distress Skin: warm, dry, reflects adequate perfusion Head/face: normal Eyes: EOMI, MAX ENT: Dried blood in the nostrils Neck: supple, non-tender Respiratory: CTA, breath sounds present Cardiovascular: RRR, pulses symmetrical Abdomen: non-tender, soft Bowel: present Musculoskeletal: normal, strength/ROM intact Neuro: normal, sensory motor intact, A&Ox3 Triage Information Reviewed: Yes Vital Signs On Initial Exam: Initial Vitals Temp Pulse Resp BP Pulse Ox 96.9 F 95 22 134/103 100 02/27/18 11:38 09/28/18 11:38 02/27/18 11:38 02/27/18 11:38 02/27/18 11:38 Vital Signs Reviewed: Yes Diagnostics - Vital Signs Vital Signs Temp Pulse Resp BP Pulse Ox 02/27/18 11:38 96.9 F 95 22 134/103 100 - Laboratory Result Diagrams: 02/27/18 12:16 02/27/18 12:12 Lab Statement: Any lab studies that have been ordered have been reviewed, and results considered in the medical decision making process. - Radiology CXR Radiology Interpretation Completed By: Radiologist - IMPRESSION: NO ACTIVE CARDIOPULMONARY DISEASE IS NOTED. ED physician reviewed this radiology report. - EKG 12:10 Cardiac Rate: NL - 89 bpm EKG Interpretation: Sinus arythmia, no acute changes EENT Course/Dx - Course Course Of Treatment: A 72 year-old F presents to the ED with a CC of epistaxis without active bleeding from the L nose since yesterday night. The pt had similar sx 6 months ago. She uses 4L O2 at home and a walker to ambulate. The pt recently had a stress test, bone marrow biopsy and pharynx excision due to anemia.. A physical exam revealed dried blood in the nostrils. Labs revealed elevated BUN and creatinine. An EKG is unremarkable. In the ED course, the pt was given 1000ml N.s 0.9% IV which improved the symptoms. A CXR is unremarkable. I discussed the care of the pt with Dr. Tonio Talbert M.D who recommended admitting the patient. He will see the pt tomorrow morning as in- patient. The patient will be admitted to Dr. Nghia Farias MD with a final Dx of acute renal failure, anemia, epistaxis, hypotension and dehydration. Pt is agreeable with this plan. Allergies noted. - Differential Diagnoses Differential Diagnoses: Epistaxis, Other - dehydration/anemia - Diagnoses Provider Diagnoses: Acute renal failure, Anemia, Epistaxis, Hypotension, Dehydration - Provider Notifications Discussed Care Of Patient With: Bryon Elizalde - Law Clerk Time Discussed With Above Provider: 12:35 Instructed by Provider To: Admit As Inpatient - Dr. Elizalde recommended admitting the pt. He is ouit of town but will the see the pt tomorrow morning. 12:36- Dr. Nghia Farias afreed to admit the pt. - Critical Care Time Critical Care Time: 30-74 min - 30 minutes Discharge - Sign-Out/Discharge Documenting (check all that apply): Patient Departure - Admit - Discharge Plan Condition: Improved Disposition: ADMITTED TO [facility] Referrals: Prosper Holbrook MD [Primary Care Provider] - - Billing Disposition and Condition Condition: IMPROVED Disposition: Admitted to [facility] - Attestation Statements Document Initiated by Martelliblenore: Yes Documenting Scribe: Jazmyne Wooten Provider For Whom Teofilo is Documenting (Include Credential): Dr. Miguel Llanos MD Scribe Attestation: Jazmyne You , scribed for Dr. Miguel Llanos MD on 02/27/18 at 1413. Scribe Documentation Reviewed: Yes Provider Attestation: The documentation as recorded by the Jazmyne brower accurately reflects the service I personally performed and the decisions made by , Dr. Miguel Llanos MD
[2018-02-27] MEDS ORDERED: NS 0.9% 1000 ML* 1,000 ML IV ONE ×2 (12:05→13:32)
[2018-02-27 12:34] LABS: INR 1.2 (0.77-1.02)
--- NOTE | 2018-02-27 13:19 | RAD ---
Indication: Anemia. Single frontal view of the chest performed at 1305 hours was reviewed. Comparison is made with previous exam dated December 22, 2017. No mediastinal shift is noted. Heart is of normal size and configuration. Lung dunlap appear clear. IMPRESSION: NO ACTIVE CARDIOPULMONARY DISEASE IS NOTED.
[2018-02-27] MEDS ORDERED: Ondansetron INJ* 2 MG/ML VIAL IV PRN (13:32)
[2018-02-27 13:44] LABS: ABS Basophils 0.1 10^3/ul (0-0.2); ABS Eosinophils 0 10^3/ul (0-0.6); ABS Lymphocytes 0.7 10^3/ul (1.0-4.8); ABS Monocytes 0.7 10^3/ul (0-0.8); ABS Neutrophils 10.2 10^3/ul (1.5-7.7); ABS Nucleated RBC 0 10^3/ul; Eosinophil % 0.3 % (0-6); Hematocrit 25 % (35-47); Lymphocyte % 6.2 % (25-47); Mean Corpuscular HGB Conc 32 g/dl (31-36); Mean Corpuscular Hemoglobin 29 pg (27-31); Mean Corpuscular Volume 91 fL (80-97); Mean Platelet Volume 9.2 um3 (7.4-10.4); Nucleated Red Blood Cells % 0.1; Platelet Count 519 10^3/ul (150-450); Red Blood Count 2.73 10^6/ul (4.00-5.40); Red Cell Distribution Width 16 % (10.5-15); White Blood Count 11.7 10^3/ul (3.5-10.8)
[2018-02-27] MEDS ORDERED: NS 0.9% 1000 ML* 1,000 ML IV SCH (13:45)
--- NOTE | 2018-02-27 14:50 | RAD ---
INDICATION: Acute renal failure. COMPARISON: Comparison is made with a prior renal ultrasound from December 13, 2016. TECHNIQUE: Multiple real-time images of the kidneys were obtained. FINDINGS: The kidneys are small in size with cortical thinning and increased echogenicity. The right kidney measured 8.8 x 3.7 x 3.6 cm and the left kidney measured 7.4 x 3.2 x 2.6 cm. No significant focal abnormality or hydronephrosis is seen. IMPRESSION: BILATERAL RENAL ATROPHY AND FINDINGS SUGGESTIVE OF MEDICAL RENAL DISEASE.
[2018-02-27 15:01] LABS: EGFR Non-African American 8.3 (>60)
[2018-02-27] MEDS: Acetaminophen TAB* 325 MG PO PRN (16:44)
[2018-02-27 18:24] LABS: Hematocrit 21 % (35-47); Hemoglobin 6.8 g/dl (12.0-16.0)
[2018-02-27] MEDS: Ticagrelor* 90 MG TAB PO SCH (20:18)
[2018-02-27] MEDS: Gabapentin CAP(*) 100 MG PO SCH (20:20)
[2018-02-27] MEDS: Mometasone/Formoter 200/5 MDI INH SCH (20:45)
--- NOTE | 2018-02-27 20:47 | HP ---
CC: Dr. Holbrook; Dr. Elizalde; Dr. Acosta * HISTORY AND PHYSICAL: DATE OF ADMISSION: 02/27/18 PRIMARY CARE PROVIDER: Dr. Holbrook. ATTENDING PHYSICIAN WHILE IN THE HOSPITAL: Jason Agrawal MD * (report dictated by Sathya Borjas NP) CHIEF COMPLAINT: Epistaxis. HISTORY OF PRESENT ILLNESS: Mrs. Lambert is a 72-year-old female patient who has a pretty extensive past medical history of hypertension, hyperlipidemia, COPD, history of CKD, baseline creatinine is 2. She has a history of osteoarthritis, PVD, CAD, uterine cancer, history of NSTEMI, she had a stress test 2 days ago which was negative; history of CHF which is diastolic, last EF greater than 65%, history of GI bleed, history of VEENA, and history of CVA. She is presenting to our ER today. She was seen at Dr. Acosta's office for followup of her anemia. She was following up with a recent bone marrow biopsy that she had done to work her anemia up. While there, she reported that she developed a nosebleed last night that they were unable to get stop, so they sent her over to the hospital. They had labs checked and it was noted that her creatinine was 5. Her H and H was stable. When the patient got here, her nosebleed had stopped. The patient states that the bleeding started last night. She denies any trauma. She states that she has been wearing her oxygen. She admits swallowing blood for most of the night. She denied having any black or tarry stools recently. She states that she does not feel lightheaded. No chest pain. No shortness of breath. The daughter does state that her appetite has been down and she has not been drinking as much fluids because she is afraid to have to urinate throughout the night. She denied having any, again chest pain. There has been no reports of confusion. No reports of tarry stools. No nausea. No vomiting. No dysuria. No frequency. She said she has been constipated, but no abdominal pain. She states that she has not had any worsening shortness of breath. There has been no cold symptoms. She states that she is always chilled, but she to her knowledge has not spiked any fevers. There was concern because of the abnormal laboratory data, the epistaxis, so we were asked to evaluate for admission. PAST MEDICAL HISTORY: Significant for: 1. Hypertension. 2. Hyperlipidemia. 3. COPD, on 4 L of oxygen chronically. 4. CKD, baseline creatinine 2. 5. Osteoarthritis. 6. PVD. 7. CAD. 8. Uterine cancer. 9. History of NSTEMI, treated medically. 10. Anemia. 11. CHF which is diastolic, last EF greater than 65%. 12. History of GI bleed. 13. VEENA, noncompliant with her BiPAP. 14. History of CVA. PAST SURGICAL HISTORY: 1. She has had carotid artery endarterectomy. 2. Hysterectomy. MEDICATIONS: Home medications according to the list that was provided include: 1. Melatonin 5 to 10 mg at bedtime. 2. Gabapentin 200 mg at bedtime. 3. Gabapentin 100 mg daily. 4. Diltiazem extended release 120 mg daily. 5. Ventolin 1 puff inhaled every 4 hours as needed. 6. Incruse Ellipta 62.5 mcg inhaled daily. 7. Symbicort 1 puff inhaled b.i.d. 8. Brilinta, she is taking 90 mg p.o. b.i.d. 9. Lipitor 20 mg daily. 10. Metoprolol XL 50 mg p.o. daily. 11. Aspirin 81 mg daily. 12. Singulair 10 mg daily. 13. Avapro 300 mg daily. 14. Lasix 40 mg daily. 15. B12 of 500 mcg p.o. daily. ALLERGIES TO MEDICATIONS: Include no known drug allergies. FAMILY HISTORY: Her mother from an accidental , carbon monoxide poisoning, and father of ruptured AAA. SOCIAL HISTORY: She is a former smoker. She does not drink alcohol. Surrogate decision maker is her daughter, Joann. REVIEW OF SYSTEMS: There is no documented fever. The patient denies having any significant weight change. There was no double vision. There is no ear discharge. She denies having any rhinorrhea. There is no sore throat. No thyroid enlargement. She denied having any chest pain. There is no orthopnea. There is no nocturnal dyspnea. There was no abdominal pain. No nausea. No vomiting. No dysuria. No frequency. No seizure. No loss of consciousness. No pruritus and no skin ulcerations. Review of 14 systems was completed, all others negative. PHYSICAL EXAMINATION GENERAL: At this time, Mrs. Lambert is a 72-year-old female patient. She is chronically ill appearing. She is sitting in the ED stretcher. She does not appear to be in any acute distress. VITAL SIGNS: Blood pressure initially was 134/103, repeat was 86/40, then I repeated it when I was talking to her and it was 109/40. Her pulse was 92, respirations were 20, O2 sat was 100% on 3 L, temperature 96.9. HEENT: Head: Atraumatic and normocephalic. Eyes: EOMs are intact. Sclerae anicteric and not pale. Throat: Oral mucosa appears to be dry. No oropharyngeal erythema. NECK: Supple. LUNGS: Clear to auscultation bilaterally. They were diminished in the bases, but I did not appreciate any wheezes or rales. HEART: Sounds S1, S2. She had a regular rate and rhythm. No murmurs, rubs, or gallops. ABDOMEN: Soft, flat, nontender. Bowel sounds were present. EXTREMITIES: Pulses were 2+ throughout. She had 5/5 strength. NEUROLOGICAL: She is awake, alert, oriented x3. Tongue is midline. 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 She has no gross focal deficits. SKIN: Intact. LABORATORY DATA/DIAGNOSTIC STUDIES: WBC 11.7, RBC 2.73, hemoglobin is 8, hematocrit 28, platelet count of 519,000. Her INR was 1.20, PTT of 31.0. Lactic was 2.2. Troponin was 0.04. She did have labs done just recently today which sodium was 133, potassium was 3.9, chloride of 96, bicarb 22, BUN 119, creatinine of 5, glucose 240. Calcium 9. Mag and phos pending. Total bili 0.3 , AST 14, ALT 13, alk phos 163. Albumin of 3. She had a chest x-ray obtained today as well, which revealed no active cardiopulmonary disease. EKG obtained today and again she had a stress test 2 days ago, which was read as no reversible ischemia but the EKG today shows normal sinus rhythm with PAC's. She has diffuse ST depression. When we looked back previously, that ST depression is similar. Old medical records were reviewed. ASSESSMENT AND PLAN: Mrs. Lambert is a 72-year-old female patient with a complex medical history, coming in to the ED today initially for uncontrolled epistaxis which is now resolved; however, on the routine labs, it was noted that her creatinine was 5. We were asked to evaluate for admission. She will be admitted under observation status for: 1. Epistaxis. This has resolved, so we will continue to monitor this. I will get her back on her aspirin and Brilinta. I am going to hold off on giving her heparin subcu for DVT prophylaxis because of the recent epistaxis. We will continue to monitor. 2. Acute on chronic renal failure. Again, etiology is unclear. It could be prerenal. Her BUN is quite high, but her baseline BUN is 50. There have been no reports of tarry stools and her H and H is stable. I am going to repeat her H and H later today. I do not believe she has an upper GI bleed. I think this is probably from prerenal dysfunction, that is why the BUN is a little elevated but however, I am going to go ahead and check a mag, phos, consult Dr. Elizalde. In addition to this, I will get her a bladder scan, renal ultrasound, UA. I will also to be safe, check a stool for Hemoccult, it may be positive because of the recent epistaxis. We will get a FENa, renal ultrasound, hydrate the patient with normal saline and then we will continue to follow. I am going to hold her Avapro and her Lasix for the time being. We will continue to follow, but in the setting of hypotension, probably this is prerenal; however, we will get the FENa to help with other etiologies. 3. Hypertension. I am going to just continue the beta-georgette only. Hold her other meds, restart when able. 4. Hyperlipidemia. Continue current medical regimen. 5. History of chronic obstructive pulmonary disease. Continue meds as prescribed. 6. Osteoarthritis. P.r.n. Tylenol has been ordered. 7. Peripheral vascular disease. Continue aspirin, Brilinta, statin therapy. 8. Coronary artery disease. Continue aspirin, statin, beta-georgette, and Brilinta and follow. 9. Uterine cancer. Follow with PCP. 10. Anemia. H and H stable. She is following with Dr. Acosta. We will follow. 11. History of congestive heart failure. She does not appear to be in acute failure. We need to be cautious with IV fluids. If we need to, we will diurese her as needed. 12. Obstructive sleep apnea. Follow up with PCP. 13. History of cerebrovascular accident. Continue with secondary prevention. 14. DVT prophylaxis. Again in the setting of recent epistaxis, holding the heparin. I will place her on SCDs. Consider starting heparin tomorrow subcu if needed. 15. Fluids, electrolytes, and nutrition. She can have a renal diet. TIME SPENT: On admission was 60 minutes, greater than half that time spent face -to- face with the patient obtaining my history and physical; the other half of the time was spent going over the plan of care with the patient and implementing plan of care. I discussed the plan of care with my attending, Dr. Agrawal, who is in agreement. SATHYA BORJAS, MARNI [id number]/[facility] #: [id number] MTDKaryna
[2018-02-27 20:56] LABS: Urine Appearance Cloudy; Urine Blood 2+ (Negative); Urine Color Yellow; Urine Ketones Negative (Negative); Urine Protein Negative (Negative); Urine Specific Gravity 1.009 (1.010-1.030); Urine Urobilinogen Negative (Negative)
[2018-02-27 20:59] LABS: Urine Red Blood Cell 1+(3-5/hpf) (Absent); Urine White Blood Cell 3+(>20/hpf) (Absent)
--- NOTE | 2018-02-27 21:37 | CONS ---
CONSULTATION REPORT: DATE OF CONSULT: 02/27/18 HISTORY OF PRESENT ILLNESS: Ms. Lambert is a 72-year-old female with a history of hypertension, severe COPD, and chronic kidney disease. She also has a history of congestive heart failure. She apparently began to have a nose bleed yesterday. She was seen by Dr. Acosta, who referred her to the emergency room because of a decline in her hemoglobin and hematocrit. She is complaining of back pain at the present time because of lying around in bed all day long. She tells me that she has not been drinking a lot of fluids because she has been instructed not to because of her congestive heart failure. She has not been using nonsteroidal inflammatory agents. She has not received any x-ray contrast agents recently. She has not had any evidence of infection, no fevers , no chills. No dysuria, frequency, or urgency. She has had some problems with incontinence of urine. PAST MEDICAL HISTORY: Previous medical history is significant for osteoarthritis. She is on chronic oxygen at 4 L. She has a history of hyperlipidemia, a history of peripheral vascular disease. She is status post CVA. She has had a non-ST segment elevation myocardial infarction. She has a history of uterine cancer. She has a history of congestive heart failure with an ejection fraction 65%. MEDICATIONS: Her medications have included: 1. Albuterol metered dose inhaler 1 puff every 4 hours p.r.n. 2. Aspirin 81 mg daily. 3. Lipitor 20 mg daily. 4. Symbicort 160/4.5 one puff b.i.d. 5. Plavix 75 mg daily. 6. Vitamin B12 500 mcg daily. 7. Diltiazem 120 mg daily. 8. Lasix 40 mg daily. 9. Neurontin 100 mg in the morning and 200 mg at bedtime. 10. Avapro 300 mg daily. 11. Iron 150 mg daily. 12. Melatonin 5 mg at bedtime. 13. Metoprolol 50 mg daily. 14. Singulair 10 mg daily. 15. Ellipta metered dose inhaler 1 puff daily. ALLERGIES: She has no medical allergies. SOCIAL HISTORY: She is a former smoker, who quit about a year ago. REVIEW OF SYSTEMS: Reveals no swallowing difficulties, no heat or cold intolerance, no orthostatic dizziness, no chest pain, no nausea, no vomiting, no change in bowel habits. PHYSICAL EXAM: She is an elderly-appearing white female, who is a bit uncomfortable and fidgeting in bed. Her blood pressure is 134/103 with a pulse of 88. O2 saturation was 94%. HEENT: She is anicteric. Her extraocular muscles are intact. Mucous membranes are moist. There is no jugular venous distention. The chest reveals some wheezing. The heart revealed a regular rhythm without murmurs that I could hear. The abdomen is distended. Bowel sounds are positive. There is no organomegaly. There is no tenderness. Bones , joints, extremities revealed no cyanosis, clubbing, or edema. LABORATORY DATA: A review of her laboratory studies reveals a white count of 11.7 with a hemoglobin of 8; her baseline hemoglobin is in the mid 8 range, she was 7.8 earlier today. Sodium 133, potassium 3.8, total CO2 20, chloride 96, BUN 118, creatinine 5.1, glucose 204. She had a known creatinine clearance of 32 cc per minute in June of this year when her serum creatinine was 1.8. IMPRESSION: 1. Acute on chronic renal insufficiency. She had a serum creatinine of 2.53 on 02/09/18, which was slightly higher than her baseline. 2. Chronic renal insufficiency. 3. Chronic obstructive pulmonary disease. 4. History of congestive heart failure. 5. Hypertension. 6. Anemia, probably anemia of chronic renal disease with an acute bleed superimposed. DISCUSSION: She is right on the cusp of requiring dialysis. However, she totally rejects that concept and she understands the implication of not doing dialysis should it be required. I mentioned to her that we would try to keep her treatment conservative with fluid administration and improvement of her oxygenation. It is not clear at the present time what the cause of this acute deterioration of her renal function is. None of the usual culprits seem to be operative at the present time and the amount of bleeding, which she does have, I do not think is an adequate explanation. I will be discussing the case with Dr. Agrawal. [id number]/[facility] #: [id number] [facility] HEALTHKaryna
[2018-02-28 01:13] LABS: Hematocrit 26 % (35-47); Hemoglobin 8.4 g/dl (12.0-16.0)
[2018-02-28 06:01] LABS: ABS Basophils 0.1 10^3/ul (0-0.2); ABS Eosinophils 0.4 10^3/ul (0-0.6); ABS Lymphocytes 1.5 10^3/ul (1.0-4.8); ABS Monocytes 1.5 10^3/ul (0-0.8); ABS Neutrophils 10.4 10^3/ul (1.5-7.7); ABS Nucleated RBC 0 10^3/ul; Eosinophil % 2.6 % (0-6); Hematocrit 27 % (35-47); Lymphocyte % 10.8 % (25-47); Mean Corpuscular HGB Conc 34 g/dl (31-36); Mean Corpuscular Hemoglobin 30 pg (27-31); Mean Corpuscular Volume 90 fL (80-97); Nucleated Red Blood Cells % 0; Platelet Count 392 10^3/ul (150-450); Red Blood Count 2.99 10^6/ul (4.00-5.40); Red Cell Distribution Width 15 % (10.5-15); White Blood Count 13.8 10^3/ul (3.5-10.8)
[2018-02-28 06:16] LABS: INR 1.12 (0.77-1.02)
[2018-02-28] MEDS: Mometasone/Formoter 200/5 MDI INH SCH ×2 (07:15→20:38)
[2018-02-28] MEDS: Umeclidin 62.5 MDI(NF) 1 INH MDI INH SCH (07:23)
[2018-02-28] MEDS: Gabapentin CAP(*) 100 MG PO SCH ×2 (08:54→22:16)
[2018-02-28] MEDS: Metoprolol Tartrate TAB* 50 mg PO SCH ×2 (08:55→22:17)
[2018-02-28] MEDS: Atorvastatin* 20 MG TAB PO SCH (08:55)
[2018-02-28] MEDS: Aspirin EC TAB* 81 MG TAB.EC PO SCH (08:55)
[2018-02-28] MEDS: Cyanocobalamin TAB* 500 MCG PO SCH (08:55)
[2018-02-28] MEDS: Montelukast Sodium TAB* 10 MG PO SCH (08:55)
[2018-02-28] MEDS: Ticagrelor* 90 MG TAB PO SCH ×2 (08:55→22:17)
[2018-02-28] MEDS ORDERED: Pneumococcal *Vac Polyvalent 0.5 ML VIAL IM ONE (09:00)
[2018-02-28] MEDS ORDERED: NS 0.9% 1000 ML* 400 ML IV SCH (10:15)
--- NOTE | 2018-02-28 10:15 | PN ---
Subjective Date of Service: 02/28/18 Interval History: Seen with daughter at bedside Feels fatigued but no different from baseline Breathing at baseline Feels her appetite has been low but dosent think she has been drinking less No changes in meds Objective Active Medications: Acetaminophen (Tylenol Tab*) 650 mg PO Q4H PRN PRN Reason: FEVER/PAIN Last Admin: 02/27/18 16:44 Dose: 650 mg Albuterol (Ventolin 2.5 Mg/3 Ml Neb.Olamide*) 2.5 mg INH Q2H PRN PRN Reason: SOB/WHEEZING Aspirin (Aspirin Ec Tab*) 81 mg PO DAILY [facility] Last Admin: 02/28/18 08:55 Dose: 81 mg Atorvastatin Calcium (Lipitor*) 20 mg PO DAILY [facility] Last Admin: 02/28/18 08:55 Dose: 20 mg Cyanocobalamin (Vitamin B12 Tab*) 500 mcg PO DAILY [facility] Last Admin: 02/28/18 08:55 Dose: 500 mcg Gabapentin (Neurontin Cap(*)) 100 mg PO DAILY [facility] Last Admin: 02/28/18 08:54 Dose: 100 mg Gabapentin (Neurontin Cap(*)) 200 mg PO BEDTIME [facility] Last Admin: 02/27/18 20:20 Dose: 200 mg Metoprolol Tartrate (Lopressor Tab*) 50 mg PO Q12HR [facility] Last Admin: 02/28/18 08:55 Dose: 50 mg Mometasone Furoate/Formoterol Fumar (Dulera 200/5 Mdi*) 1 puff INH BID [facility]; Protocol Last Admin: 02/28/18 07:15 Dose: 1 puff Montelukast Sodium (Singulair Tab*) 10 mg PO DAILY [facility] Last Admin: 02/28/18 08:55 Dose: 10 mg Ondansetron HCl (Zofran Inj*) 4 mg IV Q6H PRN PRN Reason: NAUSEA Ticagrelor (Brilinta*) 90 mg PO BID [facility] Last Admin: 02/28/18 08:55 Dose: 90 mg Umeclidinium [place] (Incruse Ellipta Mdi (Nf)) 1 inh INH DAILY [facility] Last Admin: 02/28/18 07:23 Dose: Not Given Vital Signs - 8 hr 02/28/18 02/28/18 02/28/18 03:48 03:58 07:11 Temperature 97.6 F 98.3 F Pulse Rate 70 73 Respiratory 20 26 Rate Blood Pressure 132/38 126/33 (mmHg) O2 Sat by Pulse 100 100 100 Oximetry 02/28/18 08:54 Temperature Pulse Rate Respiratory 18 Rate Blood Pressure (mmHg) O2 Sat by Pulse Oximetry Oxygen Devices in Use Now: Nasal Cannula - 4L Appearance: stated age, lying flat, NAD Eyes: No Scleral Icterus, PERRLA Ears/Nose/Mouth/Throat: NL Teeth, Lips, Gums, Clear Oropharnyx Neck: NL Appearance and Movements; NL JVP, Trachea Midline Respiratory: Symmetrical Chest Expansion and Respiratory Effort, Clear to Auscultation Cardiovascular: RRR Abdominal: NL Sounds; No Tenderness; No Distention, No Hepatosplenomegaly Lymphatic: No Cervical Adenopathy Extremities: No Edema Skin: No Rash or Ulcers Neurological: Alert and Oriented x 3 Result Diagrams: 02/28/18 05:43 02/28/18 05:43 Assess/Plan/Problems-Billing Assessment: 72 yo F h/o CKD, dCHF, COPD with chronic resp failure on 4L O2 p/w epistaxis found with acute on chronic renal failure - Patient Problems (1) Acute blood loss anemia Comment: secondary to epistaxis Suspect uremic platelets facilitated this event s/p 1 U PRBC 02/27 (2) Acute kidney failure Comment: Decreased appetite and acute blood loss likely contributing. No other contributing factors identified. If no recovery will have likely resulted in ATN as etiology Pt adamant she does not want dialysis and recocgnizes long and short term consequences of this including increased morbidity and mortality. Daughter supports patient's decision 1L NS today and recheck (3) Chronic respiratory failure Comment: 4L o2 (4) DVT prophylaxis Comment: SCDs in setting of acute blood loss anemia
[2018-02-28] MEDS: Acetaminophen TAB* 325 MG PO PRN (22:17)
[2018-03-01] MEDS: Albuterol 2.5 MG/3 ML NEB.SOL* (0.083%) INH PRN ×2 (03:58→08:22)
[2018-03-01 04:15] LABS: Urine Appearance Turbid; Urine Blood 1+ (Negative); Urine Color Amber; Urine Ketones Negative (Negative); Urine Protein 1+(30 mg/dL) (Negative); Urine Red Blood Cell 3+(>10/hpf) (Absent); Urine Specific Gravity 1.012 (1.010-1.030); Urine Urobilinogen Negative (Negative); Urine White Blood Cell 3+(>20/hpf) (Absent)
[2018-03-01 05:59] LABS: Hematocrit 25 % (35-47); Hemoglobin 8.5 g/dl (12.0-16.0); Mean Corpuscular HGB Conc 33 g/dl (31-36); Mean Corpuscular Hemoglobin 30 pg (27-31); Mean Corpuscular Volume 90 fL (80-97); Mean Platelet Volume 8.9 um3 (7.4-10.4); Platelet Count 389 10^3/ul (150-450); Red Blood Count 2.81 10^6/ul (4.00-5.40); Red Cell Distribution Width 15 % (10.5-15); White Blood Count 12.7 10^3/ul (3.5-10.8)
[2018-03-01 06:00] LABS: ABS Basophils 0.1 10^3/ul (0-0.2); ABS Eosinophils 0.1 10^3/ul (0-0.6); ABS Lymphocytes 1.3 10^3/ul (1.0-4.8); ABS Monocytes 1.6 10^3/ul (0-0.8); ABS Neutrophils 9.5 10^3/ul (1.5-7.7); ABS Nucleated RBC 0 10^3/ul; Eosinophil % 1.1 % (0-6); Lymphocyte % 10.6 % (25-47); Nucleated Red Blood Cells % 0.1
[2018-03-01 06:19] LABS: EGFR Non-African American 13.4 (>60)
[2018-03-01] MEDS: Umeclidin 62.5 MDI(NF) 1 INH MDI INH SCH (08:16)
[2018-03-01] MEDS: Mometasone/Formoter 200/5 MDI INH SCH ×2 (08:22→22:33)
[2018-03-01] MEDS: Atorvastatin* 20 MG TAB PO SCH (08:55)
[2018-03-01] MEDS: Gabapentin CAP(*) 100 MG PO SCH ×2 (08:55→19:20)
[2018-03-01] MEDS: Ticagrelor* 90 MG TAB PO SCH ×2 (08:55→19:20)
[2018-03-01] MEDS: Aspirin EC TAB* 81 MG TAB.EC PO SCH (08:56)
[2018-03-01] MEDS: Metoprolol Tartrate TAB* 50 mg PO SCH ×2 (08:56→20:03)
[2018-03-01] MEDS: Cyanocobalamin TAB* 500 MCG PO SCH (08:56)
[2018-03-01] MEDS: Montelukast Sodium TAB* 10 MG PO SCH (08:56)
[2018-03-01] MEDS: cefTRIAXone(*) 1 GM in NS 0.9% 50 ML* 50 ML IVPB SCH (08:56)
[2018-03-01] MEDS ORDERED: NS 0.9% 1000 ML* 400 ML IV SCH ×2 (10:00→10:05)
--- NOTE | 2018-03-01 10:06 | PN ---
Subjective Date of Service: 03/01/18 Interval History: Episode of SOB this AM resolved with nubulizer tx. Reports she uses nebulizer 1- 2x per day at home every day and these symptoms were the same as she gets at home. Denies urinary symptoms but Ucx +bacteria Denies SOB or CP at the moment Objective Active Medications: Acetaminophen (Tylenol Tab*) 650 mg PO Q4H PRN PRN Reason: FEVER/PAIN Last Admin: 02/28/18 22:17 Dose: 650 mg Albuterol (Ventolin 2.5 Mg/3 Ml Neb.Olamide*) 2.5 mg INH Q2H PRN PRN Reason: SOB/WHEEZING Last Admin: 03/01/18 08:22 Dose: 2.5 mg Albuterol (Ventolin Hfa Inhaler*) 2 puff INH Q4H PRN PRN Reason: SOB/WHEEZING Aspirin (Aspirin Ec Tab*) 81 mg PO DAILY [facility] Last Admin: 03/01/18 08:56 Dose: 81 mg Atorvastatin Calcium (Lipitor*) 20 mg PO DAILY [facility] Last Admin: 03/01/18 08:55 Dose: 20 mg Cyanocobalamin (Vitamin B12 Tab*) 500 mcg PO DAILY [facility] Last Admin: 03/01/18 08:56 Dose: 500 mcg Gabapentin (Neurontin Cap(*)) 100 mg PO DAILY [facility] Last Admin: 03/01/18 08:55 Dose: 100 mg Gabapentin (Neurontin Cap(*)) 200 mg PO BEDTIME [facility] Last Admin: 02/28/18 22:16 Dose: 200 mg Ceftriaxone Sodium 1 gm/ (Sodium Chloride) 50 mls @ 200 mls/hr IVPB Q24H [facility] Last Admin: 03/01/18 08:56 Dose: 200 mls/hr Sodium Chloride (Ns 0.9% 1000 Ml*) 400 mls @ 100 mls/hr IV .FOR 4 HOURS [facility] Metoprolol Tartrate (Lopressor Tab*) 50 mg PO Q12HR [facility] Last Admin: 03/01/18 08:56 Dose: 50 mg Mometasone Furoate/Formoterol Fumar (Dulera 200/5 Mdi*) 1 puff INH BID [facility]; Protocol Last Admin: 03/01/18 08:22 Dose: 1 puff Montelukast Sodium (Singulair Tab*) 10 mg PO DAILY [facility] Last Admin: 03/01/18 08:56 Dose: 10 mg Ondansetron HCl (Zofran Inj*) 4 mg IV Q6H PRN PRN Reason: NAUSEA Ticagrelor (Brilinta*) 90 mg PO BID [facility] Last Admin: 03/01/18 08:55 Dose: 90 mg Umeclidinium [place] (Incruse Ellipta Mdi (Nf)) 1 inh INH DAILY [facility] Last Admin: 03/01/18 08:16 Dose: Not Given Vital Signs - 8 hr 03/01/18 03/01/18 03/01/18 03:40 03:58 07:18 Temperature 97.4 F 100.2 F Pulse Rate 72 64 87 Respiratory 20 16 18 Rate Blood Pressure 114/32 102/69 (mmHg) O2 Sat by Pulse 100 94 100 Oximetry 03/01/18 03/01/18 08:17 08:55 Temperature Pulse Rate 68 Respiratory 20 20 Rate Blood Pressure (mmHg) O2 Sat by Pulse 98 Oximetry Oxygen Devices in Use Now: Nasal Cannula Appearance: lying 30 deg in bed on side, NAD Eyes: No Scleral Icterus, PERRLA Ears/Nose/Mouth/Throat: Clear Oropharnyx, Mucous Membranes Moist Neck: NL Appearance and Movements; NL JVP, Trachea Midline Respiratory: Symmetrical Chest Expansion and Respiratory Effort, Clear to Auscultation Cardiovascular: RRR, - - faint PJ Lymphatic: No Cervical Adenopathy Extremities: No Edema, No Clubbing, Cyanosis Skin: No Rash or Ulcers Neurological: Alert and Oriented x 3 Result Diagrams: 03/01/18 05:42 03/01/18 05:42 Microbiology and Other Data: Microbiology 02/27/18 20:30 Urine Culture - Final Urine Enterobacter Clo[place]ae Normal Kylee 02/28/18 01:02 Aerobic Blood Culture - Preliminary Blood Venous No Growth Day 1 Anaerobic Blood Culture - Preliminary No Growth Day 1 02/27/18 18:12 Aerobic Blood Culture - Preliminary Blood Venous No Growth Day 1 Anaerobic Blood Culture - Preliminary No Growth Day 1 Assess/Plan/Problems-Billing Assessment: 72 yo F h/o CKD, dCHF, COPD with chronic resp failure on 4L O2 p/w epistaxis found with acute on chronic renal failure - Patient Problems (1) Acute blood loss anemia Comment: secondary to epistaxis Suspect uremic platelets facilitated this event s/p 1 U PRBC 02/27 Stable today recheck H/H tomorrow (2) Acute kidney failure Comment: Decreased appetite and acute blood loss likely contributing. No other contributing factors identified. Pt adamant she does not want dialysis and recocgnizes long and short term consequences of this including increased morbidity and mortality. Daughter supports patient's decision Improving with volume. Will give additional 1L NS today at 150cc and more if respiratory status will tolerate then recheck tomorrow. Has h/o dCHF on most recent TTE. holding Lasix (3) Chronic respiratory failure Comment: 4L o2 (4) Diastolic CHF Comment: holding lasix no decompensated (5) DVT prophylaxis Comment: SCDs in setting of acute blood loss anemia
[2018-03-01] MEDS ORDERED: NS 0.9% 1000 ML* 1,000 ML IV SCH (17:15)
[2018-03-01] MEDS: Acetaminophen TAB* 325 MG PO PRN (19:18)
[2018-03-02] MEDS: Albuterol HFA INHALER* 8 gm MDI INH PRN ×2 (03:06→08:22)
[2018-03-02 06:31] LABS: ABS Basophils 0.1 10^3/ul (0-0.2); ABS Eosinophils 0.2 10^3/ul (0-0.6); ABS Lymphocytes 1.3 10^3/ul (1.0-4.8); ABS Monocytes 1.3 10^3/ul (0-0.8); ABS Neutrophils 10.6 10^3/ul (1.5-7.7); ABS Nucleated RBC 0 10^3/ul; Eosinophil % 1.3 % (0-6); Hematocrit 24 % (35-47); Hemoglobin 7.8 g/dl (12.0-16.0); Lymphocyte % 9.5 % (25-47); Mean Corpuscular HGB Conc 32 g/dl (31-36); Mean Corpuscular Hemoglobin 30 pg (27-31); Mean Corpuscular Volume 91 fL (80-97); Mean Platelet Volume 8.9 um3 (7.4-10.4); Nucleated Red Blood Cells % 0; Platelet Count 357 10^3/ul (150-450); Red Blood Count 2.65 10^6/ul (4.00-5.40); Red Cell Distribution Width 16 % (10.5-15); White Blood Count 13.5 10^3/ul (3.5-10.8)
[2018-03-02 06:51] LABS: EGFR Non-African American 19.2 (>60)
[2018-03-02] MEDS: Mometasone/Formoter 200/5 MDI INH SCH ×2 (08:22→20:17)
[2018-03-02] MEDS: Umeclidin 62.5 MDI(NF) 1 INH MDI INH SCH (08:25)
[2018-03-02] MEDS: Montelukast Sodium TAB* 10 MG PO SCH (09:45)
[2018-03-02] MEDS: Gabapentin CAP(*) 100 MG PO SCH ×2 (09:46→19:43)
[2018-03-02] MEDS: Aspirin EC TAB* 81 MG TAB.EC PO SCH (09:46)
[2018-03-02] MEDS: Ticagrelor* 90 MG TAB PO SCH ×2 (09:46→19:44)
[2018-03-02] MEDS: Atorvastatin* 20 MG TAB PO SCH (09:46)
[2018-03-02] MEDS: Cyanocobalamin TAB* 500 MCG PO SCH (09:46)
[2018-03-02] MEDS: Metoprolol Tartrate TAB* 50 mg PO SCH ×2 (09:47→19:44)
[2018-03-02] MEDS: cefTRIAXone(*) 1 GM in NS 0.9% 50 ML* 50 ML IVPB SCH (10:03)
--- NOTE | 2018-03-02 11:01 | PN ---
Progress Note - Progress Note Date of Service: 03/02/18 SOAP: Subjective: []She continues to struggle. Additional nose bleed last night. Spiked fever and Urine culture positive. Started on antibiotics. Acetaminophen (Tylenol Tab*) 650 mg PO Q4H PRN PRN Reason: FEVER/PAIN Last Admin: 03/01/18 19:18 Dose: 650 mg Albuterol (Ventolin 2.5 Mg/3 Ml Neb.Olamide*) 2.5 mg INH Q2H PRN PRN Reason: SOB/WHEEZING Last Admin: 03/01/18 08:22 Dose: 2.5 mg Albuterol (Ventolin Hfa Inhaler*) 2 puff INH Q4H PRN PRN Reason: SOB/WHEEZING Last Admin: 03/02/18 08:22 Dose: 2 puff Aspirin (Aspirin Ec Tab*) 81 mg PO DAILY [facility] Last Admin: 03/02/18 09:46 Dose: 81 mg Atorvastatin Calcium (Lipitor*) 20 mg PO DAILY [facility] Last Admin: 03/02/18 09:46 Dose: 20 mg Cyanocobalamin (Vitamin B12 Tab*) 500 mcg PO DAILY [facility] Last Admin: 03/02/18 09:46 Dose: 500 mcg Gabapentin (Neurontin Cap(*)) 100 mg PO DAILY [facility] Last Admin: 03/02/18 09:46 Dose: 100 mg Gabapentin (Neurontin Cap(*)) 200 mg PO BEDTIME [facility] Last Admin: 03/01/18 19:20 Dose: 200 mg Ceftriaxone Sodium 1 gm/ (Sodium Chloride) 50 mls @ 200 mls/hr IVPB Q24H [facility] Last Admin: 03/02/18 10:03 Dose: 200 mls/hr Metoprolol Tartrate (Lopressor Tab*) 50 mg PO Q12HR [facility] Last Admin: 03/02/18 09:47 Dose: 50 mg Mometasone Furoate/Formoterol Fumar (Dulera 200/5 Mdi*) 1 puff INH BID [facility]; Protocol Last Admin: 03/02/18 08:22 Dose: 1 puff Montelukast Sodium (Singulair Tab*) 10 mg PO DAILY [facility] Last Admin: 03/02/18 09:45 Dose: Not Given Ondansetron HCl (Zofran Inj*) 4 mg IV Q6H PRN PRN Reason: NAUSEA Ticagrelor (Brilinta*) 90 mg PO BID [facility] Last Admin: 03/02/18 09:46 Dose: 90 mg Umeclidinium [place] (Incruse Ellipta Mdi (Nf)) 1 inh INH DAILY [facility] Last Admin: 03/02/18 08:25 Dose: Not Given Objective: [] Vital Signs Temp Pulse Resp BP Pulse Ox 100.4 F 102 20 133/72 98 03/02/18 07:48 03/02/18 08:24 03/02/18 09:46 03/02/18 07:48 03/02/18 08:25 HEENT: No nose bleed at this time. Pale no oral lesions decreased BS but no crackles S1S2 distant, PJ obese, nt nd Ext tr edema warm and good pulses Abnormal Lab Results 03/02/18 03/02/18 06:15 06:15 WBC 13.5 H RBC 2.65 L Hgb 7.8 L Hct 24 L MCV 91 MCH 30 MCHC 32 RDW 16 H Plt Count 357 MPV 8.9 Neut % (Auto) 78.4 Lymph % (Auto) 9.5 L [place] % (Auto) 9.8 H Eos % (Auto) 1.3 Baso % (Auto) 1.0 Absolute Neuts (auto) 10.6 H Absolute Lymphs (auto) 1.3 Absolute Monos (auto) 1.3 H Absolute Eos (auto) 0.2 Absolute Basos (auto) 0.1 Absolute Nucleated RBC 0 Nucleated RBC % 0 Sodium 137 Potassium 3.9 Chloride 106 Carbon Dioxide 21 L Anion Gap 10 BUN 81 H Creatinine 2.48 H Est GFR ( Amer) 23.2 Est GFR (Non-Af Amer) 19.2 BUN/Creatinine Ratio 32.7 H Glucose 106 H Calcium 8.3 L Microbiology 03/01/18 03:55 Urine Culture - Preliminary Urine Enterobacter Cl[place]ae 02/28/18 01:02 Aerobic Blood Culture - Preliminary Blood Venous No Growth Day 2 Anaerobic Blood Culture - Preliminary No Growth Day 2 02/27/18 18:12 Aerobic Blood Culture - Preliminary Blood Venous No Growth Day 2 Anaerobic Blood Culture - Preliminary No Growth Day 2 02/27/18 20:30 Urine Culture - Final Urine Enterobacter Clo[place]ae Normal Kylee Assessment: []72 year old seen in clinic for anemia and sent to ER for epistaxis and hypotension. Found to have ARF, improved with hydration and persistent anemia. Yesterday fever and urine with enterobacter. Anemia is multi factorial with likely AWI and CRI. Given CHF and heart disease I would like to replete iron but will wait until she is without acute infection. Plan: []1. ARF and CHF managed on hospitalist service. 2. Will follow up with IV iron as out patient, or if prolonged hospital stay can start in house. 3. Bone marrow will not respond to epistaxis, Transfuse as needed. Blood loss = further iron loss.
--- NOTE | 2018-03-02 13:58 | PN ---
Subjective Date of Service: 03/02/18 Interval History: pt states that "breathing is at baseline". No more epistaxis, no melena Objective Active Medications: Acetaminophen (Tylenol Tab*) 650 mg PO Q4H PRN PRN Reason: FEVER/PAIN Last Admin: 03/01/18 19:18 Dose: 650 mg Albuterol (Ventolin 2.5 Mg/3 Ml Neb.Olamide*) 2.5 mg INH Q2H PRN PRN Reason: SOB/WHEEZING Last Admin: 03/01/18 08:22 Dose: 2.5 mg Albuterol (Ventolin Hfa Inhaler*) 2 puff INH Q4H PRN PRN Reason: SOB/WHEEZING Last Admin: 03/02/18 08:22 Dose: 2 puff Aspirin (Aspirin Ec Tab*) 81 mg PO DAILY [facility] Last Admin: 03/02/18 09:46 Dose: 81 mg Atorvastatin Calcium (Lipitor*) 20 mg PO DAILY [facility] Last Admin: 03/02/18 09:46 Dose: 20 mg Cyanocobalamin (Vitamin B12 Tab*) 500 mcg PO DAILY [facility] Last Admin: 03/02/18 09:46 Dose: 500 mcg Furosemide (Lasix Tab*) 20 mg PO DAILY [facility] Last Admin: 03/02/18 13:22 Dose: 20 mg Gabapentin (Neurontin Cap(*)) 100 mg PO DAILY [facility] Last Admin: 03/02/18 09:46 Dose: 100 mg Gabapentin (Neurontin Cap(*)) 200 mg PO BEDTIME [facility] Last Admin: 03/01/18 19:20 Dose: 200 mg Ceftriaxone Sodium 1 gm/ (Sodium Chloride) 50 mls @ 200 mls/hr IVPB Q24H [facility] Last Admin: 03/02/18 10:03 Dose: 200 mls/hr Metoprolol Tartrate (Lopressor Tab*) 50 mg PO Q12HR [facility] Last Admin: 03/02/18 09:47 Dose: 50 mg Mometasone Furoate/Formoterol Fumar (Dulera 200/5 Mdi*) 1 puff INH BID [facility]; Protocol Last Admin: 03/02/18 08:22 Dose: 1 puff Montelukast Sodium (Singulair Tab*) 10 mg PO DAILY [facility] Last Admin: 03/02/18 09:45 Dose: Not Given Ondansetron HCl (Zofran Inj*) 4 mg IV Q6H PRN PRN Reason: NAUSEA Ticagrelor (Brilinta*) 90 mg PO BID [facility] Last Admin: 03/02/18 09:46 Dose: 90 mg Umeclidinium [place] (Incruse Ellipta Mdi (Nf)) 1 inh INH DAILY [facility] Last Admin: 03/02/18 08:25 Dose: Not Given Vital Signs - 8 hr 03/02/18 03/02/18 03/02/18 07:48 08:24 08:25 Temperature 100.4 F Pulse Rate 99 102 Respiratory 20 20 Rate Blood Pressure 133/72 (mmHg) O2 Sat by Pulse 100 98 98 Oximetry 03/02/18 03/02/18 09:46 11:45 Temperature Pulse Rate Respiratory 20 14 Rate Blood Pressure (mmHg) O2 Sat by Pulse Oximetry Oxygen Devices in Use Now: OxyMask Appearance: 72 yo f in nAD, aAOx3 Eyes: No Scleral Icterus, PERRLA Ears/Nose/Mouth/Throat: NL Teeth, Lips, Gums, Mucous Membranes Moist Neck: NL Appearance and Movements; NL JVP, Trachea Midline Respiratory: Symmetrical Chest Expansion and Respiratory Effort, Clear to Auscultation Cardiovascular: NL Sounds; No Murmurs; No JVD, RRR Abdominal: NL Sounds; No Tenderness; No Distention Lymphatic: No Cervical Adenopathy Extremities: No Clubbing, Cyanosis, - - trace pedal edema b/l Skin: No Rash or Ulcers, No Nodules or Sclerosis Neurological: Alert and Oriented x 3, NL Muscle Strength and Tone Result Diagrams: 03/02/18 06:15 03/02/18 06:15 Microbiology and Other Data: Microbiology 02/27/18 20:30 Urine Culture - Final Urine Enterobacter [place]ae Normal Kylee 02/28/18 01:02 Aerobic Blood Culture - Preliminary Blood Venous No Growth Day 1 Anaerobic Blood Culture - Preliminary No Growth Day 1 02/27/18 18:12 Aerobic Blood Culture - Preliminary Blood Venous No Growth Day 1 Anaerobic Blood Culture - Preliminary No Growth Day 1 Assess/Plan/Problems-Billing Assessment: 72 yo F h/o CKD, dCHF, COPD with chronic resp failure on 4L O2 p/w epistaxis found with acute on chronic renal failure - Patient Problems (1) UTI (urinary tract infection) Comment: - had fever last night - Urine culture with enterobacter, sensitive to cephalosporines - Continue Ceftriaxone - renal US consitent with medicla renal disease (2) Acute blood loss anemia Comment: secondary to epistaxis Suspect uremic platelets facilitated this event s/p 1 U PRBC 02/27 Stable today recheck H/H tomorrow (3) Acute kidney failure Comment: Decreased appetite and acute blood loss likely contributing. No other contributing factors identified. Pt adamant she does not want dialysis and recocgnizes long and short term consequences of this including increased morbidity and mortality. Daughter supports patient's decision Improved with volume. Will restart low dose Lasix today (4) Chronic respiratory failure Comment: 4L o2 at baseline (5) DVT prophylaxis Comment: SCDs in setting of acute blood loss anemia (6) Diastolic CHF Comment: will restart Lasix at lower dose today Status and Disposition: inpatient, likely going home to live with her daughter tomorrow
[2018-03-02] MEDS ORDERED: Furosemide TAB* 20 MG PO SCH (14:00)
[2018-03-03 05:43] LABS: Hematocrit 23 % (35-47); Hemoglobin 7.5 g/dl (12.0-16.0); Mean Corpuscular HGB Conc 33 g/dl (31-36); Mean Corpuscular Hemoglobin 30 pg (27-31); Mean Corpuscular Volume 91 fL (80-97); Mean Platelet Volume 9.3 um3 (7.4-10.4); Platelet Count 372 10^3/ul (150-450); Red Blood Count 2.53 10^6/ul (4.00-5.40); Red Cell Distribution Width 16 % (10.5-15); White Blood Count 12.3 10^3/ul (3.5-10.8)
[2018-03-03 06:10] LABS: ABS Basophils 0.1 10^3/ul (0-0.2); ABS Eosinophils 0.2 10^3/ul (0-0.6); ABS Lymphocytes 1.3 10^3/ul (1.0-4.8); ABS Monocytes 1.6 10^3/ul (0-0.8); ABS Neutrophils 9.2 10^3/ul (1.5-7.7); ABS Nucleated RBC 0 10^3/ul; Eosinophil % 1.2 % (0-6); Lymphocyte % 10.3 % (25-47); Nucleated Red Blood Cells % 0
[2018-03-03 06:12] LABS: EGFR Non-African American 22.5 (>60)
[2018-03-03] MEDS: Ticagrelor* 90 MG TAB PO SCH ×2 (08:34→20:07)
[2018-03-03] MEDS: Gabapentin CAP(*) 100 MG PO SCH ×2 (08:34→20:07)
[2018-03-03] MEDS: Furosemide TAB* 40 MG PO SCH (08:34)
[2018-03-03] MEDS: Cyanocobalamin TAB* 500 MCG PO SCH (08:34)
[2018-03-03] MEDS: Atorvastatin* 20 MG TAB PO SCH (08:34)
[2018-03-03] MEDS: Metoprolol Tartrate TAB* 50 mg PO SCH ×2 (08:34→20:10)
[2018-03-03] MEDS: Montelukast Sodium TAB* 10 MG PO SCH (08:34)
[2018-03-03] MEDS: Aspirin EC TAB* 81 MG TAB.EC PO SCH (08:34)
[2018-03-03] MEDS: cefTRIAXone(*) 1 GM in NS 0.9% 50 ML* 50 ML IVPB SCH (08:35)
[2018-03-03] MEDS: Albuterol HFA INHALER* 8 gm MDI INH PRN (08:54)
[2018-03-03] MEDS: Mometasone/Formoter 200/5 MDI INH SCH ×2 (08:54→19:20)
[2018-03-03] MEDS: Umeclidin 62.5 MDI(NF) 1 INH MDI INH SCH (08:58)
--- NOTE | 2018-03-03 15:58 | PN ---
Subjective Date of Service: 03/03/18 Interval History: Pt feels tired today. Had a temp of 99.9, no other complaints Objective Active Medications: Acetaminophen (Tylenol Tab*) 650 mg PO Q4H PRN PRN Reason: FEVER/PAIN Last Admin: 03/01/18 19:18 Dose: 650 mg Albuterol (Ventolin 2.5 Mg/3 Ml Neb.Olamide*) 2.5 mg INH Q2H PRN PRN Reason: SOB/WHEEZING Last Admin: 03/01/18 08:22 Dose: 2.5 mg Albuterol (Ventolin Hfa Inhaler*) 2 puff INH Q4H PRN PRN Reason: SOB/WHEEZING Last Admin: 03/03/18 08:54 Dose: 2 puff Aspirin (Aspirin Ec Tab*) 81 mg PO DAILY [facility] Last Admin: 03/03/18 08:34 Dose: 81 mg Atorvastatin Calcium (Lipitor*) 20 mg PO DAILY [facility] Last Admin: 03/03/18 08:34 Dose: 20 mg Cyanocobalamin (Vitamin B12 Tab*) 500 mcg PO DAILY [facility] Last Admin: 03/03/18 08:34 Dose: 500 mcg Furosemide (Lasix Tab*) 40 mg PO DAILY [facility] Last Admin: 03/03/18 08:34 Dose: 40 mg Gabapentin (Neurontin Cap(*)) 100 mg PO DAILY [facility] Last Admin: 03/03/18 08:34 Dose: 100 mg Gabapentin (Neurontin Cap(*)) 200 mg PO BEDTIME [facility] Last Admin: 03/02/18 19:43 Dose: 200 mg Ceftriaxone Sodium 1 gm/ (Sodium Chloride) 50 mls @ 200 mls/hr IVPB Q24H [facility] Last Admin: 03/03/18 08:35 Dose: 200 mls/hr Metoprolol Tartrate (Lopressor Tab*) 50 mg PO Q12HR [facility] Last Admin: 03/03/18 08:34 Dose: 50 mg Mometasone Furoate/Formoterol Fumar (Dulera 200/5 Mdi*) 1 puff INH BID [facility]; Protocol Last Admin: 03/03/18 08:54 Dose: 1 puff Montelukast Sodium (Singulair Tab*) 10 mg PO DAILY [facility] Last Admin: 03/03/18 08:34 Dose: 10 mg Ondansetron HCl (Zofran Inj*) 4 mg IV Q6H PRN PRN Reason: NAUSEA Ticagrelor (Brilinta*) 90 mg PO BID [facility] Last Admin: 03/03/18 08:34 Dose: 90 mg Umeclidinium [place] (Incruse Ellipta Mdi (Nf)) 1 inh INH DAILY [facility] Last Admin: 03/03/18 08:58 Dose: Not Given Vital Signs - 8 hr 03/03/18 03/03/18 03/03/18 08:00 08:12 08:34 Temperature 99.2 F Pulse Rate 93 Respiratory 16 20 16 Rate Blood Pressure 118/43 (mmHg) O2 Sat by Pulse 100 Oximetry 03/03/18 03/03/18 03/03/18 08:55 10:30 11:19 Temperature 99.9 F Pulse Rate 96 85 Respiratory 18 16 20 Rate Blood Pressure 124/50 (mmHg) O2 Sat by Pulse 99 100 Oximetry Oxygen Devices in Use Now: Nasal Cannula Appearance: 72 yo F in nAD, aAOx3 Eyes: No Scleral Icterus, PERRLA Ears/Nose/Mouth/Throat: NL Teeth, Lips, Gums, Mucous Membranes Moist Neck: NL Appearance and Movements; NL JVP, Trachea Midline Respiratory: Symmetrical Chest Expansion and Respiratory Effort, - - scattered wheezes r anterior chest Cardiovascular: NL Sounds; No Murmurs; No JVD, RRR Abdominal: NL Sounds; No Tenderness; No Distention Lymphatic: No Cervical Adenopathy Extremities: No Clubbing, Cyanosis, - - trace pedal edema b/l Skin: No Rash or Ulcers, No Nodules or Sclerosis Neurological: Alert and Oriented x 3, NL Muscle Strength and Tone Result Diagrams: 03/03/18 05:10 03/03/18 05:10 Microbiology and Other Data: Microbiology 02/27/18 20:30 Urine Culture - Final Urine Enterobacter Clo[place]ae Normal Kylee 02/28/18 01:02 Aerobic Blood Culture - Preliminary Blood Venous No Growth Day 1 Anaerobic Blood Culture - Preliminary No Growth Day 1 02/27/18 18:12 Aerobic Blood Culture - Preliminary Blood Venous No Growth Day 1 Anaerobic Blood Culture - Preliminary No Growth Day 1 Assess/Plan/Problems-Billing Assessment: 72 yo F h/o CKD, dCHF, COPD with chronic resp failure on 4L O2 p/w epistaxis found with acute on chronic renal failure - Patient Problems (1) UTI (urinary tract infection) Comment: -still increased temp today. - Urine culture with enterobacter, sensitive to cephalosporines - Continue Ceftriaxone - renal US consistent with medical renal disease (2) Acute blood loss anemia Comment: secondary to epistaxis Suspect uremic platelets facilitated this event s/p 1 U PRBC 02/27 today Hb lower than before, but still within pt's chronic range. (3) Acute kidney failure Comment: Decreased appetite and acute blood loss likely contributing. No other contributing factors identified. Pt adamant she does not want dialysis and recocgnizes long and short term consequences of this including increased morbidity and mortality. Daughter supports patient's decision Improved with volume. Restart low dose Lasix 03/02/18 , creat still improving (4) Chronic respiratory failure Comment: 4L o2 at baseline (5) Diastolic CHF Comment: cont home Lasix dose (6) DVT prophylaxis Comment: SCDs in setting of acute blood loss anemia Status and Disposition: inpatient, due to increased temp and low Hb will monitor for one more day
[2018-03-03] MEDS: Acetaminophen TAB* 325 MG PO PRN ×2 (18:14→22:04)
[2018-03-03] MEDS ORDERED: traMADol TAB* 50 MG PO PRN (23:57)
[2018-03-04] MEDS: Acetaminophen TAB* 325 MG PO PRN ×2 (03:03→09:23)
[2018-03-04 07:36] LABS: Hematocrit 25 % (35-47); Mean Corpuscular HGB Conc 32 g/dl (31-36); Mean Corpuscular Hemoglobin 29 pg (27-31); Mean Corpuscular Volume 91 fL (80-97); Mean Platelet Volume 9.2 um3 (7.4-10.4); Platelet Count 438 10^3/ul (150-450); Red Blood Count 2.76 10^6/ul (4.00-5.40); Red Cell Distribution Width 15 % (10.5-15); White Blood Count 14.8 10^3/ul (3.5-10.8)
[2018-03-04 07:46] LABS: ABS Basophils 0.1 10^3/ul (0-0.2); ABS Eosinophils 0.3 10^3/ul (0-0.6); ABS Monocytes 1.7 10^3/ul (0-0.8); ABS Neutrophils 11.7 10^3/ul (1.5-7.7); ABS Nucleated RBC 0 10^3/ul; Eosinophil % 1.9 % (0-6); Lymphocyte % 6.9 % (25-47); Nucleated Red Blood Cells % 0
[2018-03-04] MEDS: Mometasone/Formoter 200/5 MDI INH SCH (07:46)
[2018-03-04 07:52] LABS: EGFR Non-African American 26.5 (>60)
[2018-03-04] MEDS: Umeclidin 62.5 MDI(NF) 1 INH MDI INH SCH (07:58)
[2018-03-04 08:41] VITALS: BP 130/60
[2018-03-04] MEDS: cefTRIAXone(*) 1 GM in NS 0.9% 50 ML* 50 ML IVPB SCH (09:15)
[2018-03-04] MEDS: Montelukast Sodium TAB* 10 MG PO SCH (09:15)
[2018-03-04] MEDS: Atorvastatin* 20 MG TAB PO SCH (09:16)
[2018-03-04] MEDS: Gabapentin CAP(*) 100 MG PO SCH (09:16)
[2018-03-04] MEDS: Metoprolol Tartrate TAB* 50 mg PO SCH (09:16)
[2018-03-04] MEDS: Furosemide TAB* 40 MG PO SCH (09:16)
[2018-03-04] MEDS: Ticagrelor* 90 MG TAB PO SCH (09:17)
[2018-03-04] MEDS: Cyanocobalamin TAB* 500 MCG PO SCH (09:18)
[2018-03-04] MEDS: Aspirin EC TAB* 81 MG TAB.EC PO SCH (09:18)
--- NOTE | 2018-03-04 23:26 | DS ---
CC: Dr. Holbrook; Dr. Acosta; Dr. Elizalde * DISCHARGE SUMMARY: DATE OF ADMISSION: 02/27/18 DATE OF DISCHARGE: 03/04/18 PRIMARY CARE PROVIDER: Dr. Holbrook. DISCHARGE DIAGNOSES: 1. Worsening of chronic anemia due to epistaxis, status post 1 unit packed red blood cells transfusion during the hospital stay. 2. Acute renal failure on chronic renal insufficiency, likely related to combination of bleeding and dehydration. 3. Enterobacter cloacae urinary tract infection. MEDICATIONS AT DISCHARGE: Include, 1. Albuterol inhaler on a p.r.n. basis. 2. DuoNeb nebulizer on a p.r.n. basis. 3. Aspirin 81 mg daily. 4. Lipitor 20 mg daily. 5. Symbicort 160/4.5, 1 puff inhalation b.i.d. 6. Vitamin B12 of 500 mcg daily. 7. Furosemide 40 mg daily. 8. Gabapentin 100 mg daily and 200 mg at bedtime. 9. Melatonin 5 to 10 mg at bedtime p.r.n. 10. Metoprolol succinate 50 mg daily. 11. Singulair 10 mg daily. 12. Brilinta 90 mg b.i.d. 13. Incruse Ellipta 1 inhalation daily. 14. Cefdinir 300 mg b.i.d. for 4 days total. LABORATORY DATA AND STUDIES PERFORMED DURING THE HOSPITAL STAY: On 03/04/18, sodium of 137, potassium 3.5, chloride 102, carbon dioxide 25, BUN 54, creatinine 1.87. Her creatinine at admission was 5.1. On 03/04/18, white blood cell count 14.8, hemoglobin of 8.0, hematocrit of 25 and platelets of 438. Microbiology studies showed urine cultures positive for Enterobacter cloacae and there were over 100,000 colonies, resistant to cefazolin and Augmentin and intermediate sensitivity to nitrofurantoin. Renal ultrasound obtained on 02/27/18, impression "bilateral renal atrophy and findings suggestive of medical renal disease." CONSULTATIONS DURING THE HOSPITAL STAY: Included Dr. Elizalde and Dr. Acosta. HOSPITALIZATION COURSE: Abby Lambert is a 72-year-old female with history of coronary artery disease, chronic kidney disease, as well as COPD with chronic hypoxemic respiratory failure on 4 L of oxygen at home who presented to the hospital complaining of epistaxis on 02/27/18. The patient was hypotensive and was noted to have acute renal failure likely due to ATN. The patient also was significantly anemic at presentation with a hemoglobin level of 6.8 requiring 1 unit of packed red blood cell transfusion. Later on, the patient had been hemodynamically stable. Some of her antihypertensives were restarted during the hospital stay but her Cardizem as well as Avapro were not restarted due to the patient being normotensive on current regimen of medication. The patient's Lasix initially was held and after transfusion was slowly restarted with continuation of improvement of patient's creatinine. The patient was noted to have Enterobacter UTI and treated with ceftriaxone. She will require another 4 days of third-generation cephalosporin orally treatment at discharge. The patient is going to go home with the help of her daughter. She is going to move in with her daughter post hospital stay. The patient is recommended to follow up with Dr. Holbrook in approximately 4 to 7 days. The patient is also recommended to follow up with Dr. Acosta for possibility of iron infusions as outpatient. PHYSICAL EXAM AT TIME OF DISCHARGE: Blood pressure 130/60, heart rate of 80 and regular, respiratory rate 16, oxygen saturation 97% on 4 L of oxygen via nasal cannula, temperature 98.0. General: The patient is a very pleasant 72- year-old female who is in no acute distress. Alert, awake and oriented x3. HEENT: Head, atraumatic, normocephalic. Eyes: Pupils equal, round, and reactive to light and accommodation. Oropharynx clear. Mucosa moist. Neck: Supple. No JVD. No bruits bilaterally. Cardiovascular: Regular rate and rhythm. No murmur. Respiratory: Clear to auscultation bilaterally. Abdomen: Soft, nontender. Bowel sounds are present in all 4 quadrants. Extremities: There is no edema. Pulses +2 bilaterally. No clubbing or cyanosis. Neuro Evaluation: Speech clear. Cranial nerves II through XII grossly intact. Motor strength is 5/5 bilaterally. Please note that this is a short summary of the patient's hospitalization. Please refer to further medical records for details. TIME SPENT: Approximately 40 minutes were spent on the patient's discharge. [id number]/[facility] #: [id number] MTDD
== END 2018-03-04 12:30 | disposition home or self-care (01) | DRG 683 ==
LOC: ED 11:22 → MEDTELE 14:20 → OBSVTOIN 03-01 12:00 → MED 03-03 21:40
PROVIDERS: ADMIT Internal Medicine; ATTEND Internal Medicine
PROC: 30233N1 Transfusion of Nonautologous Red Blood Cells into Peripheral Vein, Percutaneous Approach (ICD-10-PCS; principal; 2018-03-01)
DX: N17.0 Acute kidney failure with tubular necrosis (principal); I13.0 Hypertensive heart and chronic kidney disease with heart failure and stage 1 through stage 4 chronic kidney disease, or unspecified chronic kidney disease; I50.32 Chronic diastolic (congestive) heart failure; D62 Acute posthemorrhagic anemia; N39.0 Urinary tract infection, site not specified; J96.11 Chronic respiratory failure with hypoxia; I73.9 Peripheral vascular disease, unspecified; J44.9 Chronic obstructive pulmonary disease, unspecified; I95.9 Hypotension, unspecified; M46.90 Unspecified inflammatory spondylopathy, site unspecified; E86.0 Dehydration; N18.9 Chronic kidney disease, unspecified; G47.33 Obstructive sleep apnea (adult) (pediatric); K59.00 Constipation, unspecified; N26.1 Atrophy of kidney (terminal); I49.1 Atrial premature depolarization; E78.5 Hyperlipidemia, unspecified; B96.89 Other specified bacterial agents as the cause of diseases classified elsewhere; R04.0 Epistaxis; Z79.82 Long term (current) use of aspirin; Z79.02 Long term (current) use of antithrombotics/antiplatelets; Z91.14 Patient's other noncompliance with medication regimen; Z86.73 Personal history of transient ischemic attack (TIA), and cerebral infarction without residual deficits; Z87.01 Personal history of pneumonia (recurrent); Z90.710 Acquired absence of both cervix and uterus; Z80.8 Family history of malignant neoplasm of other organs or systems; Z99.81 Dependence on supplemental oxygen; Z87.891 Personal history of nicotine dependence; Z85.42 Personal history of malignant neoplasm of other parts of uterus; I25.2 Old myocardial infarction
CPT/HCPCS: 36415; 71045; 76775; 80048; 80053; 81003; 81015; 82570; 83605; 83735; 84100; 84300; 84484; 85014; 85018; 85025; 85610; 85730; 86850; 86900; 86901; 86922; 87040; 87077; 87086; 87186; 90686; 90732; 93005; 94640; 99232; 99284; A9270-GY; G0378; G8978-GP-CK; G8979-GP-CI; J0696; P9016

== ENCOUNTER 2018-03-05 11:51 | Inpatient (IN) | payer MEDICARE, OTHER ==
[2018-03-05] MEDS ORDERED: NS 0.9% 1000 ML* 1,000 ML IV ONE ×2 (12:09→13:09)
[2018-03-05 12:22] LABS: Hematocrit 25 % (35-47); Mean Corpuscular HGB Conc 32 g/dl (31-36); Mean Corpuscular Hemoglobin 29 pg (27-31); Mean Corpuscular Volume 90 fL (80-97); Platelet Count 541 10^3/ul (150-450); Red Blood Count 2.75 10^6/ul (4.00-5.40); Red Cell Distribution Width 16 % (10.5-15); White Blood Count 14.3 10^3/ul (3.5-10.8)
[2018-03-05 12:38] LABS: EGFR Non-African American 22.4 (>60)
[2018-03-05 12:42] LABS: INR 1.3 (0.77-1.02)
--- NOTE | 2018-03-05 12:44 | RAD ---
Indication: LEFT arm pain. History of previous [place]. Comparison: February 27, 2018 Technique: Upright AP 1222 hours Report: Elevated lung volumes and mild prominence of the interstitial markings without significant interval change. Negative for pleural effusion or pneumothorax. Upper normal heart size. Unremarkable central pulmonary vasculature and mediastinal contours. IMPRESSION: #. Stigmata of obstructive lung disease. No acute pulmonary or cardiac process evident.
[2018-03-05 12:56] LABS: ABS Basophils 0.1 10^3/ul (0-0.2); ABS Eosinophils 0 10^3/ul (0-0.6); ABS Lymphocytes 0.9 10^3/ul (1.0-4.8); ABS Monocytes 1.6 10^3/ul (0-0.8); ABS Neutrophils 11.8 10^3/ul (1.5-7.7); ABS Nucleated RBC 0 10^3/ul; Eosinophil % 0.3 % (0-6); Nucleated Red Blood Cells % 0
[2018-03-05] MEDS ORDERED: Magnesium Sulfate 1 GM IV* 1 GM/100 ML BAG IV ONE (13:04)
[2018-03-05] MEDS ORDERED: Morphine INJ** 4 MG/ML 1 ML CARPUJECT IV ONE (13:26)
[2018-03-05] MEDS ORDERED: Morphine INJ* 4 MG/ML 1 ML SYRINGE (NEW SYRINGE VERSION) IV ONE (13:31)
--- NOTE | 2018-03-05 13:36 | ED ---
Dizziness - HPI Summary HPI Summary: Patient is a 72-year-old female with a PMH of atrial fibrillation, COPD requiring for L O2 at home, CHF, chronic renal insufficiency, CAD, hypertension who was recently seen in the ED and discharged 2 days ago for epistaxis. She had received 1 unit of PRBC while in the ED. She also received ceftriaxone. She is followed by Dr. Debbie capellan and Dr. Holbrook. She comes in today to the ED with left-sided arm pain radiating through to the back. She is mentating well and she is stable. She states she has shortness of breath at baseline and this is not worse today. Denies any nausea, vomiting, diarrhea, cough. She denies any dizziness or visual changes. She is concerned only over her arm pain. Pain is not worse with movement or better with rest. - History Of Current Complaint Chief Complaint: EDDizziness Stated Complaint: LT ARM PAIN Time Seen by Provider: 03/05/18 11:53 Hx Obtained From: Patient Onset/Duration: Unknown Timing: Constant Severity Initially: Moderate Severity Currently: Moderate Aggravating Factor(s): Nothing Alleviating Factor(s): Nothing Associated Signs And Symptoms: Positive: Negative - Risk Factors Cardiac Risk Factors: Hypertension, Diabetes, Elevated Lipids, CHF, Family History, Prior [place], CAD CVA Risk Factor: Hypertension, Prior CVA/TIA, Diabetes, Recent [place], Valvular Heart Disease, Peripheral Vasular Disease - Allergies/Home Medications Allergies/Adverse Reactions: Allergies Allergy/AdvReac Type Severity Reaction Status Date / Time No Known Allergies Allergy Verified 02/27/18 11:42 PMH/Surg Hx/FS Hx/Imm Hx Previously Healthy: No Endocrine/Hematology History: Denies: Hx Diabetes Cardiovascular History: Reports: Hx Angina, Hx Congestive Heart Failure, Hx Hypercholesterolemia, Hx Hypertension, Hx Peripheral Vascular Disease Denies: Hx Coronary Artery Disease, Hx Myocardial Infarction, Hx Pacemaker/ ICD, Hx Valvular Heart Disease Respiratory History: Reports: Hx Chronic Obstructive Pulmonary Disease (COPD) - 4L home O2, Hx Pneumonia, Other Respiratory Problems/Disorders Denies: Hx Asthma History: Reports: Other Problems/Disorders - chronic renal insufficiency Musculoskeletal History: Reports: Hx Arthritis - LOWER BACK Sensory History: Reports: Hx Contacts or Glasses Denies: Hx Hearing Aid Opthamlomology History: Reports: Hx Contacts or Glasses Psychiatric History: Denies: Hx Panic Disorder - Cancer History Cancer Type, Location and Year: Cervical 2016, hysterectomy performed, was curative Hx Chemotherapy: No Hx Radiation Therapy: No - Surgical History Surgery Procedure, Year, and Place: CAROTID ARTERY STENT 2009 AT [facility]; lap hysterectomy at [facility] Hx Anesthesia Reactions: No - Immunization History Date of Tetanus Vaccine: unk Date of Influenza Vaccine: fall 2016 Infectious Disease History: No Infectious Disease History: Denies: Hx Clostridium Difficile, Traveled Outside the [place] in Last 30 Days - Family History Known Family History: Positive: Other - POS: [place], throat - Social History Occupation: Unemployed, Disabled Lives: Alone Alcohol Use: None Hx Substance Use: No Substance Use Type: Reports: None Hx Tobacco Use: Yes Smoking Status (MU): Former Smoker Type: Cigarettes Amount Used/How Often: 1 PPD Length of Time of Smoking/Using Tobacco: 40 YRS. Have You Smoked in the Last Year: Yes Review of Systems Constitutional: Negative Negative: Fever, Chills, Fatigue, Skin Diaphoresis Negative: Epistaxis Negative: Palpitations, Chest Pain Negative: Shortness Of Breath, Cough Genitourinary: Negative Positive: no symptoms reported, see HPI Positive: Arthralgia Skin: Negative Neurological: Negative All Other Systems Reviewed And Are Negative: Yes Physical Exam Triage Information Reviewed: Yes Vital Signs On Initial Exam: Initial Vitals Temp Pulse Resp BP Pulse Ox 97.8 F 112 20 71/38 99 03/05/18 12:04 03/05/18 12:04 03/05/18 12:04 03/05/18 12:04 03/05/18 12:04 Vital Signs Reviewed: Yes Appearance: Positive: Ill-Appearing Skin: Positive: Skin Color Reflects Adequate Perfusion Head/Face: Positive: Normal Head/Face Inspection Eyes: Positive: EOMI, MAX, Conjunctiva Clear Neck: Positive: Supple, No Lymphadenopathy Respiratory/Lung Sounds: Positive: Wheezes Cardiovascular: Positive: RRR, Pulses are Symmetrical in both Upper and Lower Extremities Musculoskeletal: Positive: Pain @ - left shoulder radiating through to the back Neurological: Positive: Speech Normal Psychiatric: Positive: Normal, Affect/Mood Appropriate AVPU Assessment: Alert Diagnostics - Vital Signs Vital Signs Temp Pulse Resp BP Pulse Ox 03/05/18 13:01 20 76/46 03/05/18 13:00 22 03/05/18 12:45 21 59/28 03/05/18 12:15 28 101/47 10/04/18 12:14 16 03/05/18 12:04 97.8 F 112 20 71/38 99 - Laboratory Lab Results: Lab Results 03/05/18 03/05/18 03/05/18 Range/Units 12:12 12:12 12:12 WBC 14.3 H (3.5-10.8) 10^3/ul RBC 2.75 L (4.00-5.40) 10^6/ul Hgb 8.0 L (12.0-16.0) g/dl Hct 25 L (35-47) % MCV 90 (80-97) fL MCH 29 (27-31) pg MCHC 32 (31-36) g/dl RDW 16 H (10.5-15) % Plt Count 541 H D (150-450) 10^3/ul MPV 9.0 (7.4-10.4) um3 Neut % (Auto) 82.4 (38-83) % Lymph % (Auto) 6.0 L (25-47) % [place] % (Auto) 10.8 H (0-7) % Eos % (Auto) 0.3 (0-6) % Baso % (Auto) 0.5 (0-2) % Absolute Neuts (auto) 11.8 H (1.5-7.7) 10^3/ul Absolute Lymphs (auto) 0.9 L (1.0-4.8) 10^3/ul Absolute Monos (auto) 1.6 H (0-0.8) 10^3/ul Absolute Eos (auto) 0 (0-0.6) 10^3/ul Absolute Basos (auto) 0.1 (0-0.2) 10^3/ul Absolute Nucleated RBC 0 10^3/ul Nucleated RBC % 0 INR (Anticoag Therapy) (0.77-1.02) Sodium 135 (135-145) mmol/L Potassium 3.7 (3.5-5.0) mmol/L Chloride 99 L (101-111) mmol/L Carbon Dioxide 25 (22-32) mmol/L Anion Gap 11 (2-11) mmol/L BUN 53 H (6-24) mg/dL Creatinine 2.17 H (0.51-0.95) mg/dL Est GFR ( Amer) 27.0 (>60) Est GFR (Non-Af Amer) 22.4 (>60) BUN/Creatinine Ratio 24.4 H (8-20) Glucose 130 H (70-100) mg/dL Lactic Acid 2.4 H* (0.5-2.0) mmol/L Calcium 8.3 L (8.6-10.3) mg/dL Magnesium 1.4 L (1.9-2.7) mg/dL Total Bilirubin 0.30 (0.2-1.0) mg/dL AST 19 (13-39) U/L ALT 17 (7-52) U/L Alkaline Phosphatase 168 H (34-104) U/L Total Creatine Kinase 69 (10-223) U/L Troponin I 0.03 (<0.04) ng/mL Total Protein 5.5 L (6.4-8.9) g/dL Albumin 2.5 L (3.2-5.2) g/dL Globulin 3.0 (2-4) g/dL Albumin/Globulin Ratio 0.8 L (1-3) 03/05/18 Range/Units 12:12 WBC (3.5-10.8) 10^3/ul RBC (4.00-5.40) 10^6/ul Hgb (12.0-16.0) g/dl Hct (35-47) % MCV (80-97) fL MCH (27-31) pg MCHC (31-36) g/dl RDW (10.5-15) % Plt Count (150-450) 10^3/ul MPV (7.4-10.4) um3 Neut % (Auto) (38-83) % Lymph % (Auto) (25-47) % [place] % (Auto) (0-7) % Eos % (Auto) (0-6) % Baso % (Auto) (0-2) % Absolute Neuts (auto) (1.5-7.7) 10^3/ul Absolute Lymphs (auto) (1.0-4.8) 10^3/ul Absolute Monos (auto) (0-0.8) 10^3/ul Absolute Eos (auto) (0-0.6) 10^3/ul Absolute Basos (auto) (0-0.2) 10^3/ul Absolute Nucleated RBC 10^3/ul Nucleated RBC % INR (Anticoag Therapy) 1.30 H (0.77-1.02) Sodium (135-145) mmol/L Potassium (3.5-5.0) mmol/L Chloride (101-111) mmol/L Carbon Dioxide (22-32) mmol/L Anion Gap (2-11) mmol/L BUN (6-24) mg/dL Creatinine (0.51-0.95) mg/dL Est GFR ( Amer) (>60) Est GFR (Non-Af Amer) (>60) BUN/Creatinine Ratio (8-20) Glucose (70-100) mg/dL Lactic Acid (0.5-2.0) mmol/L Calcium (8.6-10.3) mg/dL Magnesium (1.9-2.7) mg/dL Total Bilirubin (0.2-1.0) mg/dL AST (13-39) U/L ALT (7-52) U/L Alkaline Phosphatase (34-104) U/L Total Creatine Kinase (10-223) U/L Troponin I (<0.04) ng/mL Total Protein (6.4-8.9) g/dL Albumin (3.2-5.2) g/dL Globulin (2-4) g/dL Albumin/Globulin Ratio (1-3) Result Diagrams: 03/06/18 06:00 03/06/18 06:00 Lab Statement: Any lab studies that have been ordered have been reviewed, and results considered in the medical decision making process. Dizzy Course/Dx - Course Course Of Treatment: during the course of treatment, patient is given magnesium after she was noted to be low in magnesium at 1.4. She is noted to be hypotensive and tachycardic and she is given 2 L of fluids in the ED. She is mentating well and she is otherwise hemodynamically stable. She is tachycardia at 125, but this reduced to approximately 108. Discussed case with hospitalist who agrees to admit to med telemetry. BP decreases to 85/60, but improved after fluids. Troponin elevated, however this has been at baseline in the past. EKG shows sinus arrhythmia with a rate of 124. No signs of ST elevation or ischemia. Similar to previous EKG of 02/19/18. Platelet count today 541. Elevated BUN 53. Admission for hypotension, left arm pain and renal insufficiency. - Diagnoses Differential Diagnosis/HQI/PQRI: Hyperventilation, Medication Reaction, Metabolic Abnormality, Transient Ischemic Attack Provider Diagnoses: COPD (chronic obstructive pulmonary disease), Tachycardia, Left arm pain, Hypotension Discharge - Sign-Out/Discharge Documenting (check all that apply): Patient Departure - Discharge Plan Condition: Stable Disposition: ADMITTED TO [facility] - Billing Disposition and Condition Condition: STABLE Disposition: Admitted to [facility]
[2018-03-05 15:31] LABS: Urine Appearance Cloudy; Urine Blood 3+ (Negative); Urine Color Yellow; Urine Ketones Negative (Negative); Urine Protein Negative (Negative); Urine Red Blood Cell 1+(3-5/hpf) (Absent); Urine Specific Gravity 1.011 (1.010-1.030); Urine Urobilinogen Negative (Negative); Urine White Blood Cell 1+(6-10/hpf) (Absent)
[2018-03-05] MEDS ORDERED: Magnesium Sulfate IV* 3 GM in NS 0.9% 100 ML* 100 ML IVPB ONE (15:39)
[2018-03-05] MEDS ORDERED: NS 0.9% 100 ML* 100 ML ONE (18:42)
[2018-03-05] MEDS: Mometasone/Formoter 200/5 MDI INH SCH (20:17)
[2018-03-05] MEDS ORDERED: Ondansetron INJ* 2 MG/ML VIAL IV PRN (20:24)
[2018-03-05] MEDS: Gabapentin CAP(*) 100 MG PO SCH (21:21)
[2018-03-05] MEDS: Ticagrelor* 90 MG TAB PO SCH (21:22)
[2018-03-05] MEDS: Heparin VIAL(*) 5000 UNITS/ML VIAL (FIVE THOUSAND) SUBCUT SCH (21:22)
[2018-03-05] MEDS: Albuterol HFA INHALER* 8 gm MDI INH PRN ×2 (22:34→22:46)
--- NOTE | 2018-03-05 22:38 | HP ---
CC: Prosper Holbrook MD * HISTORY AND PHYSICAL: DATE OF ADMISSION: 03/05/18 PRIMARY CARE PROVIDER: Prosper Holbrook MD PRIMARY MANUAL ARTS TEACHER: Dr. Campos. ATTENDING PHYSICIAN: Dr. Gerardo Amin * (dictated by Lilia Chaudhry NP). CHIEF COMPLAINT: Left arm pain and dizziness. HISTORY OF PRESENT ILLNESS: Ms. Lambert is a 72-year-old female with past medical history significant for chronic hypoxic respiratory failure, on home O2 ; atrial fibrillation; diastolic congestive heart failure; angina; PVD; COPD; chronic renal insufficiency; coronary artery disease; VEENA, untreated; hypertension; and hyperlipidemia, who was just hospitalized from 02/27/18 to 08/17 for epistaxis. The patient was found to have worsening of her chronic anemia secondary to epistaxis. She received 1 unit of packed red blood cells during her hospitalization. She also had acute on chronic renal insufficiency felt to be secondary to bleeding and dehydration and was found to have an Enterobacter urinary tract infection. During her hospitalization, she received 4 days of ceftriaxone. She was noted to be hypotensive. It was felt that her renal failure could also be likely due to ATN. She became hemodynamically stable. Some of her antihypertensives were resumed. Her Cardizem and Avapro were held due to her being normotensive on the current medication regimen. Her Lasix was initially held and after blood transfusion was slowly restarted and her creatinine was improving. Plan was for the patient to go home with her daughter's help. According to the patient's daughter, she has not been eating well for 2 weeks. This morning, she reported dizziness when sitting and standing. She states this has been going on for a few weeks. Additionally, she developed a left arm pain that she reports radiated to her back and shoulder. She described this as an aching feeling. Due to her symptoms, she presented to the emergency room for further evaluation. While in the emergency room, the patient was noted to be hypotensive with systolic blood pressures into the 50s to 100s. She was oriented and mentating well. She denied any fevers, chills, chest pain. She has shortness of breath at baseline. She reports her breathing is at baseline. She denies any respiratory symptoms, cough, nausea, vomiting, diarrhea. She is chronically on 4 L of oxygen via nasal cannula. She denies any diaphoresis. She denies any urinary symptoms other than urinary frequency at baseline. It is also to note that according to the patient's daughter, she reports that her mother is often incontinent and uses Depends at home. She feels that she is unable to care for her at home. She had labs showing elevated BUN and creatinine, continued to be elevated above her baseline. She also has leukocytosis. She had a urinalysis significant for 3+ blood, wbc's 1+, bacteria 3+. She had a chest x-ray showing no acute findings. The hospitalists were asked to evaluate the patient for admission. PAST MEDICAL HISTORY: 1. Chronic hypoxic respiratory failure, on 4 L oxygen via nasal cannula. 2. Atrial fibrillation. 3. Diastolic congestive heart failure. 4. Angina. 5. Peripheral vascular disease. 6. COPD. 7. Chronic renal insufficiency. 8. Obstructive sleep apnea, untreated. 9. Cervical cancer. 10. Coronary artery disease. 11. Hyperlipidemia. 12. Hypertension. PAST SURGICAL HISTORY: 1. Status post hysterectomy. 2. Status post carotid endarterectomy. HOME MEDICATIONS: Include: 1. Incruse Ellipta MDI 62.5 mcg inhalation daily. 2. Brilinta 90 mg oral twice daily. 3. Singulair 10 mg oral daily. 4. Metoprolol succinate 50 mg oral daily. 5. Melatonin 5 to 10 mg oral daily at bedtime. 6. Gabapentin 100 mg oral daily, 200 mg oral daily at bedtime. 7. Furosemide 40 mg oral daily. 8. Vitamin B12 500 mcg oral daily. 9. Cefdinir 300 mg oral twice daily. 10. Symbicort 160/4.5 mcg 1 puff inhalation twice daily. 11. Atorvastatin 20 mg oral daily. 12. Aspirin 81 mg oral daily. 13. Ventolin HFA inhaler 1 puff inhalation every 4 hours as needed for shortness of breath or wheeze. ALLERGIES: No known drug allergies. FAMILY HISTORY: The patient has 2 sisters with a history of coronary artery disease. Her mother also with a history of coronary artery disease. Two sisters with type 2 diabetes mellitus. Mother with a history of esophageal cancer and she an accidental from carbon monoxide poisoning. The patient's father of a ruptured AAA. SOCIAL HISTORY: The patient is a former smoker, quitting 1 year ago. Prior to that, she smoked a pack a day for 40 years. Denies alcohol or recreational drug use. Her daughter, Joann Goldberg, will be her surrogate decision maker in the event she is unable to make decisions for herself. REVIEW OF SYSTEMS: I performed an 11-point review of systems. All the pertinent positives and negatives are mentioned in the history of present illness. The remaining review of systems are negative. PHYSICAL EXAMINATION GENERAL APPEARANCE: The patient is alert, pleasant, appears to be in no acute distress. VITAL SIGNS: Temperature 97.8, heart rate 131, respiratory rate 20, O2 sat 99% on room air, blood pressure 96/38. HEENT: Normocephalic, atraumatic. Pupils are equal and reactive to light. Extraocular movements are intact. RESPIRATORY: There is no accessory muscle use. The lungs are clear to auscultation bilaterally. CARDIOVASCULAR: Irregular rate and rhythm. S1, S2 present. There are no murmurs, rubs, or gallops heard. ABDOMEN: Soft, nontender, and nondistended. There are bowel sounds present x4. EXTREMITIES: No lower extremity edema. DP and PT pulses are 2+ and symmetric. MUSCULOSKELETAL: There is no clubbing or cyanosis noted. The patient exhibits good strength in all extremities. There is no tenderness to palpation of the left arm. She has full range of motion of her shoulder. NEUROLOGICAL: The patient is alert and oriented x4. Cranial nerves II through XII are grossly intact. PSYCHOLOGICAL: Calm and cooperative. SKIN: There are no rashes or abnormalities seen. DIAGNOSTIC STUDIES/LAB DATA: Sodium 135, potassium 3.7, chloride 99, CO2 of 25 , BUN 53, creatinine 2.17, glucose 130, magnesium 1.4, lactic acid 2.4. White blood cell count 14.3, hemoglobin 8.0, hematocrit 25, and platelet count 541, 000. EKG shows sinus arrhythmia and tachycardic rate 124. There are no acute signs of ischemia. Previous EKG from 02/27/18 shows sinus arrhythmia. Chest x-ray from today. Radiologist's impression: Stigmata of obstructive lung disease. No acute pulmonary or cardiac process evident. IMPRESSION: Ms. Lambert is a 72-year-old female with past medical history significant for chronic hypoxic respiratory failure, on home O2; atrial fibrillation; diastolic congestive heart failure; angina; peripheral vascular disease; chronic obstructive pulmonary disease; chronic renal insufficiency; cervical cancer, status post hysterectomy; coronary artery disease; obstructive sleep apnea; hypertension; and hyperlipidemia, who presented to the emergency room with complaints of left arm pain. She will be admitted as an observation for hypotension, left arm pain, acute on chronic renal insufficiency. ASSESSMENT/PLAN: 1. Hypotension. It is unclear the cause of this, but I suspect it is secondary to hypovolemia. I am going to give her some IV hydration. I am actually going to check her blood pressure on other arm and see if these correlate. We will continue to follow. I am going to hold her Lasix, continue her metoprolol succinate with hold parameters. 2. Left arm pain. Unclear cause at this time. I suspect this is muscular. I am going to trend her troponins. She recently had a low risk cardiac stress test on 02/25/18. 3. Leukocytosis. The patient has a clear chest x-ray. Her urinalysis could represent a urinary tract infection, but she has just completed a course of antibiotics for this. I am going to wait and see what the urine culture shows before continuing her on any antibiotics. We will recheck her white blood cell count in the morning. I am going to check a CRP. Additionally, we will get an echo to evaluate for pericardial effusion. This could represent a pericarditis , and her arm pain could be deferred pain from the pericardial effusion. 4. Acute on chronic kidney injury. I suspect this is multifactorial including hypovolemia and possibly acute tubular necrosis in the setting of hypotension. I am going to give her some IV fluids overnight, recheck tomorrow. We can consider asking Dr. Elizalde to consult on the patient while she is here. He is out of town returning in the morning. Her baseline creatinine appears to be around 2. 5. Elevated lactic acid. I suspect this is secondary to dehydration. We will give her hydration, and recheck a lactic acid. I do not suspect this represents sepsis at this time. 6. Dizziness. I suspect this is secondary to her hypotension and dehydration. Check orthostatic vital signs. 7. Hypertension. At this point, the patient is hypotensive. I am going to continue her on her metoprolol with hold parameters. I will hold her lasix, her other antihypertensive were discontinued on her previous admission. 8. Hyperlipidemia. She will be continued on a statin. 9. Chronic obstructive pulmonary disease. She has no signs of an acute exacerbation at this time. She will be continued on her home Ellipta, Ventolin as needed, and Symbicort. 10. Peripheral vascular disease and coronary artery disease. She will be continued on her aspirin, Brilinta, statin, and beta-georgette. 11. History of uterine cancer. She is status post hysterectomy. She should continue to follow with her PCP for routine followup. 12. Anemia. Her H and H is stable. This appears to be acute on chronic, I suspect secondary to her epistaxis last week. We will continue to follow her H and H. She follows with Dr. Acosta for her chronic anemia. 13. Diastolic congestive heart failure. She does not appear to be in acute failure at this time. I am going to cautiously give her IV fluids and diurese as needed. She will have daily weights, strict I's and O's. I am going to hold her Lasix in the setting of hypotension. 14. Chronic hypoxic respiratory failure. She will be continued on her home O2. 15. Obstructive sleep apnea. The patient does not use CPAP or BiPAP. She will be continued on her oxygen. 16. Generalized weakness. We will get PT eval. The patient walks with a walker at baseline. 17. Hypomagnesemia. We will give replacement, recheck tomorrow. 18. Fluids, electrolytes, and nutrition: She will be on a low-sodium diet. 19. Code status: Full code. 20. DVT prophylaxis: She is a highest risk. I am going to put her on subcu heparin, but closely monitor her labs to make sure that she does not have any further bleeding. 21. Disposition: Observation. TIME SPENT: Time for this admission was approximately 60 minutes, greater than half of that was spent [id number] with the patient and daughter discussing medications, past medical history, the events leading to her arrival today, and performing a physical examination. The case has been reviewed with the attending, Dr. Amin, who agrees with the plan of care. Reviewed by STONE CALI 03/06/18 1954 [id number]/[facility] #: [id number] [place]
[2018-03-05] MEDS ORDERED: Ondansetron INJ* 2 MG/ML VIAL IV ONE (23:13)
[2018-03-06] MEDS: Albuterol HFA INHALER* 8 gm MDI INH PRN ×5 (02:31→19:41)
[2018-03-06] MEDS: Heparin VIAL(*) 5000 UNITS/ML VIAL (FIVE THOUSAND) SUBCUT SCH ×3 (05:38→20:00)
[2018-03-06 06:18] LABS: ABS Basophils 0.1 10^3/ul (0-0.2); ABS Eosinophils 0.2 10^3/ul (0-0.6); ABS Lymphocytes 1.2 10^3/ul (1.0-4.8); ABS Monocytes 1.4 10^3/ul (0-0.8); ABS Nucleated RBC 0 10^3/ul; Eosinophil % 1.1 % (0-6); Hematocrit 21 % (35-47); Hemoglobin 6.8 g/dl (12.0-16.0); Lymphocyte % 7.3 % (25-47); Mean Corpuscular HGB Conc 33 g/dl (31-36); Mean Corpuscular Hemoglobin 29 pg (27-31); Mean Corpuscular Volume 90 fL (80-97); Mean Platelet Volume 8.9 um3 (7.4-10.4); Nucleated Red Blood Cells % 0; Platelet Count 475 10^3/ul (150-450); Red Blood Count 2.33 10^6/ul (4.00-5.40); Red Cell Distribution Width 16 % (10.5-15); White Blood Count 15.9 10^3/ul (3.5-10.8)
[2018-03-06 06:38] LABS: EGFR Non-African American 25.6 (>60)
[2018-03-06] MEDS: Mometasone/Formoter 200/5 MDI INH SCH ×2 (07:35→19:42)
[2018-03-06] MEDS: UMECLIDIN MDI INH SCH (07:36)
[2018-03-06] MEDS: Ticagrelor* 90 MG TAB PO SCH ×2 (08:20→20:03)
[2018-03-06] MEDS: Atorvastatin* 20 MG TAB PO SCH (08:20)
[2018-03-06] MEDS: Cyanocobalamin TAB* 500 MCG PO SCH (08:21)
[2018-03-06] MEDS: Montelukast Sodium TAB* 10 MG PO SCH (08:21)
[2018-03-06] MEDS: Aspirin EC TAB* 81 MG TAB.EC PO SCH (08:21)
[2018-03-06] MEDS: Gabapentin CAP(*) 100 MG PO SCH ×2 (08:22→20:01)
[2018-03-06] MEDS ORDERED: Metoprolol Succinate XL TAB* 50 MG PO SCH (09:00)
[2018-03-06] MEDS ORDERED: cefTRIAXone(*) 1 GM in NS 0.9% 50 ML* 50 ML IVPB SCH (11:30)
[2018-03-06] MEDS: Acetaminophen TAB* 325 MG PO PRN (12:12)
--- NOTE | 2018-03-06 16:17 | ECHO ---
Patient: JYOTI MONTES [facility] Rec#: [id number] : 1945 Date: 03/06/2018 Age: 72y Height: 152 cm / 59.8 in Weight: 67.59 kg / 149.0 lbs Sex: F BSA: 1.64 Room#: [facility] Admit Date#: 03/05/2018 Type: Inpatient Referring: Lilia Max NP Reading: Brett Gann DO Retail Operations Manager: Lilia Lynn RDCS CC: Prosper Holbrook MD Transthoracic Echocardiogram Indication: Hypotension, chest pain BP: 112/93 HR: 94 Rhythm: NSR with PACs Findings History: COPD, HTN, HLD, CKD, CHF, CVA. Technical Comments: The study is technically limited due to poor parasternal windows. Completed at 1015. Left Ventricle: The left ventricular chamber size is normal. Mild concentric left ventricular hypertrophy is observed. Global left ventricular wall motion and contractility are within normal limits. The left ventricle appears hyperdynamic. The estimated ejection fraction is greater than 65%. Abnormal left ventricular diastolic function is observed. Left Atrium: The left atrium is mild to moderately dilated. Right Ventricle: The right ventricular chamber size and systolic function are within normal limits. Right Atrium: The right atrial cavity size is normal. Aortic Valve: The aortic valve is trileaflet. The aortic valve leaflets are mildly thickened. There is aortic annular calcification.that is mild There is no evidence of aortic regurgitation. There is no evidence of aortic stenosis. Mitral Valve: Mild mitral annular calcification present. The mitral valve leaflets are mildly thickened. There is a trace of mitral regurgitation. There is no evidence of mitral stenosis. Tricuspid Valve: The tricuspid valve leaflets are normal. There is trace tricuspid regurgitation. Unable to estimate the right ventricular systolic pressure. There is no tricuspid stenosis. Pulmonic Valve: The pulmonic valve structure is not well visualized. There is a trace pulmonic regurgitation. There is no pulmonic stenosis. Pericardium: There is no significant pericardial effusion. A pericardial fat pad is visualized. Aorta: There is no dilatation of the ascending aorta. The aortic arch is not well visualized. The aortic root is normal in size. Pulmonary Artery: The main pulmonary artery is not well visualized. Venous: The inferior vena cava appears normal in size. There is a greater than 50% respiratory change in the inferior vena cava dimension. Conclusions The left ventricular chamber size is normal. Mild concentric left ventricular hypertrophy is observed. Global left ventricular wall motion and contractility are within normal limits. The left ventricle appears hyperdynamic. The estimated ejection fraction is greater than 70%. The left atrium is mild to moderately dilated. The right ventricular chamber size and systolic function are within normal limits. Unable to estimate the right ventricular systolic pressure. A pericardial fat pad is visualized. There is no significant pericardial effusion. Compared to prior study from 11/2017, LVEF is now hyperdynamic (normal prior) Measurements Name Value Normal Range RVIDd (AP) 2D 2.9 cm (0.9 - 2.6) RVDdMajor (2D) 4.3 cm (2.2 - 4.4) RAd ISD 4CH 4.6 cm (3.4 - 4.9) RA (A4C)W 3.7 cm (2.9 - 4.6) IVSd (2D) 1.1 cm (0.6 - 1) LVPWd (2D) 1.1 cm (0.6 - 1) LVIDd (2D) 3.8 cm (3.6 - 5.4) LVIDs (2D) 2.2 cm - LV FS (2D) 42 % (25 - 45) Aortic Annulus 2 cm (1.4 - 2.6) Ao root diameter (2D) 2.7 cm (2.1 - 3.5) Ascending Ao 2.6 cm (2.1 - 3.4) LAd ISD 4CH 5.1 cm (2.9 - 5.3) LA ISD 4CH W 4.6 cm (2.5 - 4.5) Name Value Normal Range LA ESV BP (A/L) index 46 ml/m2 - Name Value Normal Range MV E-wave Vmax 1 m/sec - MV deceleration time 258.3 msec - MV A-wave Vmax 1.54 m/sec - LV septal e' Vmax 0.05 m/sec - LV lateral e' Vmax 0.06 m/sec - LV E:e' septal ratio 20 ratio - LV E:e' lateral ratio 16.67 ratio - Name Value Normal Range AV Vmax 1.6 m/sec - AV VTI 36 cm - AV peak gradient 11 mmHg - AV mean gradient 6 mmHg - LVOT Vmax 1 m/sec - LVOT VTI 23.1 cm - LVOT peak gradient 4 mmHg - LVOT mean gradient 2 mmHg - Name Value Normal Range IVC diameter 2 cm - Name Value Normal Range PV Vmax 1 m/sec - PV peak gradient 4 mmHg -
[2018-03-06] MEDS ORDERED: Potassium Chlor TAB* 20 MEQ TAB.ER PO ONE (17:36)
--- NOTE | 2018-03-06 17:41 | PN ---
Subjective Date of Service: 03/06/18 Interval History: Mrs. Lambert reports feeling weak in general, not any worse from admission. Per daughter, patient gradually slowing down at home. She doesn't ambulate much. PO intake has been poor. Daughter feels patient needs some skilled help and rehab to get back on her feet. She keeps "bouncing" between home and hospital with no overall improvement in her health. She has no specific complaints, just being weak in general. She denies chest pain, palpitations or SOB. Family History: Unchanged from Admission Social History: Unchanged from Admission Past Medical History: Unchanged from Admission Objective Active Medications: Acetaminophen (Tylenol Tab*) 650 mg PO Q4H PRN PRN Reason: FEVER/PAIN Last Admin: 03/06/18 12:12 Dose: 650 mg Albuterol (Ventolin Hfa Inhaler*) 1 puff INH Q4H PRN PRN Reason: SHORTNESS OF BREATH Last Admin: 03/06/18 14:50 Dose: 1 puff Aspirin (Aspirin Ec Tab*) 81 mg PO DAILY [facility] Last Admin: 03/06/18 08:21 Dose: 81 mg Atorvastatin Calcium (Lipitor*) 20 mg PO DAILY [facility] Last Admin: 03/06/18 08:20 Dose: 20 mg Cyanocobalamin (Vitamin B12 Tab*) 500 mcg PO DAILY [facility] Last Admin: 03/06/18 08:21 Dose: 500 mcg Gabapentin (Neurontin Cap(*)) 100 mg PO DAILY [facility] Last Admin: 03/06/18 08:22 Dose: 100 mg Gabapentin (Neurontin Cap(*)) 200 mg PO BEDTIME [facility] Last Admin: 03/05/18 21:21 Dose: 200 mg Heparin Sodium (Porcine) (Heparin Vial(*)) 5,000 units SUBCUT Q8HR [facility] Last Admin: 03/06/18 13:34 Dose: 5,000 units Lactated Ringer's (Lactated Ringers 1000 Ml Bag*) 1,000 mls @ 100 mls/hr IV PER RATE [facility] Last Admin: 03/06/18 05:37 Dose: 100 mls/hr Ceftriaxone Sodium 1 gm/ (Sodium Chloride) 50 mls @ 200 mls/hr IVPB Q24H [facility] Last Admin: 03/06/18 12:01 Dose: 200 mls/hr Metoprolol Succinate (Toprol Xl Tab*) 50 mg PO DAILY [facility] Last Admin: 03/06/18 08:20 Dose: 50 mg Mometasone Furoate/Formoterol Fumar (Dulera 200/5 Mdi*) 1 puff INH BID [facility]; Protocol Last Admin: 03/06/18 07:35 Dose: 1 puff Montelukast Sodium (Singulair Tab*) 10 mg PO DAILY [facility] Last Admin: 03/06/18 08:21 Dose: 10 mg Ondansetron HCl (Zofran Inj*) 4 mg IV Q6H PRN PRN Reason: NAUSEA Last Admin: 03/05/18 20:37 Dose: 4 mg Potassium Chloride (Klor Con Er Tab*) 40 meq PO ONCE ONE Stop: 03/06/18 17:37 Ticagrelor (Brilinta*) 90 mg PO BID [facility] Last Admin: 03/06/18 08:20 Dose: 90 mg Umeclidinium [place] (Incruse Ellipta Mdi (Nf)) 1 inh INH DAILY [facility] Last Admin: 03/06/18 07:36 Dose: Not Given Vital Signs - 8 hr 03/06/18 03/06/18 03/06/18 10:43 11:24 12:02 Temperature 100.6 F Pulse Rate 83 Respiratory 20 18 20 Rate Blood Pressure 114/56 (mmHg) O2 Sat by Pulse 100 Oximetry Oxygen Devices in Use Now: Nasal Cannula Appearance: Appears comfortable and in NAD Eyes: No Scleral Icterus, PERRLA Ears/Nose/Mouth/Throat: Clear Oropharnyx, Mucous Membranes Moist Neck: NL Appearance and Movements; NL JVP, Trachea Midline Respiratory: Symmetrical Chest Expansion and Respiratory Effort, - - Decreased breath sounds throughout Cardiovascular: NL Sounds; No Murmurs; No JVD, RRR Abdominal: NL Sounds; No Tenderness; No Distention Extremities: No Edema Neurological: Alert and Oriented x 3 Nutrition: Taking PO's Result Diagrams: 03/06/18 06:00 03/06/18 06:00 Additional Lab and Data: Lab Results 03/05/18 03/05/18 03/05/18 Range/Units 12:12 12:12 12:12 WBC 14.3 H (3.5-10.8) 10^3/ul RBC 2.75 L (4.00-5.40) 10^6/ul Hgb 8.0 L (12.0-16.0) g/dl Hct 25 L (35-47) % MCV 90 (80-97) fL MCH 29 (27-31) pg MCHC 32 (31-36) g/dl RDW 16 H (10.5-15) % Plt Count 541 H D (150-450) 10^3/ul MPV 9.0 (7.4-10.4) um3 Neut % (Auto) 82.4 (38-83) % Lymph % (Auto) 6.0 L (25-47) % [place] % (Auto) 10.8 H (0-7) % Eos % (Auto) 0.3 (0-6) % Baso % (Auto) 0.5 (0-2) % Absolute Neuts (auto) 11.8 H (1.5-7.7) 10^3/ul Absolute Lymphs (auto) 0.9 L (1.0-4.8) 10^3/ul Absolute Monos (auto) 1.6 H (0-0.8) 10^3/ul Absolute Eos (auto) 0 (0-0.6) 10^3/ul Absolute Basos (auto) 0.1 (0-0.2) 10^3/ul Absolute Nucleated RBC 0 10^3/ul Nucleated RBC % 0 INR (Anticoag Therapy) (0.77-1.02) Sodium 135 (135-145) mmol/L Potassium 3.7 (3.5-5.0) mmol/L Chloride 99 L (101-111) mmol/L Carbon Dioxide 25 (22-32) mmol/L Anion Gap 11 (2-11) mmol/L BUN 53 H (6-24) mg/dL Creatinine 2.17 H (0.51-0.95) mg/dL Est GFR ( Amer) 27.0 (>60) Est GFR (Non-Af Amer) 22.4 (>60) BUN/Creatinine Ratio 24.4 H (8-20) Glucose 130 H (70-100) mg/dL Lactic Acid 2.4 H* (0.5-2.0) mmol/L Calcium 8.3 L (8.6-10.3) mg/dL Magnesium 1.4 L (1.9-2.7) mg/dL Total Bilirubin 0.30 (0.2-1.0) mg/dL AST 19 (13-39) U/L ALT 17 (7-52) U/L Alkaline Phosphatase 168 H (34-104) U/L Total Creatine Kinase 69 (10-223) U/L Troponin I 0.03 (<0.04) ng/mL Total Protein 5.5 L (6.4-8.9) g/dL Albumin 2.5 L (3.2-5.2) g/dL Globulin 3.0 (2-4) g/dL Albumin/Globulin Ratio 0.8 L (1-3) 03/05/18 Range/Units 12:12 WBC (3.5-10.8) 10^3/ul RBC (4.00-5.40) 10^6/ul Hgb (12.0-16.0) g/dl Hct (35-47) % MCV (80-97) fL MCH (27-31) pg MCHC (31-36) g/dl RDW (10.5-15) % Plt Count (150-450) 10^3/ul MPV (7.4-10.4) um3 Neut % (Auto) (38-83) % Lymph % (Auto) (25-47) % [place] % (Auto) (0-7) % Eos % (Auto) (0-6) % Baso % (Auto) (0-2) % Absolute Neuts (auto) (1.5-7.7) 10^3/ul Absolute Lymphs (auto) (1.0-4.8) 10^3/ul Absolute Monos (auto) (0-0.8) 10^3/ul Absolute Eos (auto) (0-0.6) 10^3/ul Absolute Basos (auto) (0-0.2) 10^3/ul Absolute Nucleated RBC 10^3/ul Nucleated RBC % INR (Anticoag Therapy) 1.30 H (0.77-1.02) Sodium (135-145) mmol/L Potassium (3.5-5.0) mmol/L Chloride (101-111) mmol/L Carbon Dioxide (22-32) mmol/L Anion Gap (2-11) mmol/L BUN (6-24) mg/dL Creatinine (0.51-0.95) mg/dL Est GFR ( Amer) (>60) Est GFR (Non-Af Amer) (>60) BUN/Creatinine Ratio (8-20) Glucose (70-100) mg/dL Lactic Acid (0.5-2.0) mmol/L Calcium (8.6-10.3) mg/dL Magnesium (1.9-2.7) mg/dL Total Bilirubin (0.2-1.0) mg/dL AST (13-39) U/L ALT (7-52) U/L Alkaline Phosphatase (34-104) U/L Total Creatine Kinase (10-223) U/L Troponin I (<0.04) ng/mL Total Protein (6.4-8.9) g/dL Albumin (3.2-5.2) g/dL Globulin (2-4) g/dL Albumin/Globulin Ratio (1-3) Microbiology and Other Data: Microbiology 03/05/18 14:31 Urine Culture - Preliminary Urine Enterococcus Faecium Diagnostic Imaging: . EKG Data: . Assess/Plan/Problems-Billing Assessment: A 72 y/o female with multiple medical issues, who presented to ED 24 hrs after being discharged from hospital with c/o L arm pain and weakness, found to be hypotensive, dehydrated with acute on chronic renal insufficiency. - Patient Problems (1) Weakness Current Visit: Yes Status: Acute Comment: - Worsening physical deconditioning at home - Will need continous PT/OT eval and treatment likely at a SNF level (2) Anemia Current Visit: No Status: Acute Comment: - Stable, appropriate to her degree of renal insufficiency. - Normocytic, appears chronic, dating back to 07/2016 - Could be hemodilutional after IVF bolus (3) COPD (chronic obstructive pulmonary disease) Current Visit: No Status: Acute Comment: - No signs of exacerbation. She has chronic hypoxic respiratory failure and requires 3L O2 continuously at home. (4) Chronic respiratory failure Current Visit: No Status: Acute Comment: - 4L o2 at baseline (5) Diabetes Current Visit: No Status: Acute Comment: - Diet controlled at this point as outpatient (6) Diastolic CHF Current Visit: No Status: Acute Comment: - cont home Lasix dose (7) Elevated troponin Current Visit: No Status: Acute Comment: - Likely due to renal insufficiency - No chest pain - Repeated echo with no pericardial effusion noted (8) UTI (urinary tract infection) Current Visit: No Status: Acute Comment: - Leukocytosis with hx recurrent UTI - Ceftriaxone and await C&S (9) CAD (coronary artery disease) Current Visit: No Status: Chronic Comment: - stable, no acute issues (10) HLD (hyperlipidemia) Current Visit: No Status: Chronic Comment: - Continue statin (11) HTN (hypertension) Current Visit: No Status: Chronic Comment: - Continue furosemide and metoprolol (12) DVT prophylaxis Current Visit: No Status: Acute Comment: - SQ heparin (13) Full code status Current Visit: No Status: Acute Status and Disposition: Inpatient. Social workers to consult for STR placement.
[2018-03-07] MEDS: Albuterol HFA INHALER* 8 gm MDI INH PRN ×5 (01:07→20:11)
[2018-03-07] MEDS: Heparin VIAL(*) 5000 UNITS/ML VIAL (FIVE THOUSAND) SUBCUT SCH (05:58)
[2018-03-07 06:02] LABS: Hematocrit 20 % (35-47); Hemoglobin 6.4 g/dl (12.0-16.0); Mean Corpuscular HGB Conc 33 g/dl (31-36); Mean Corpuscular Hemoglobin 29 pg (27-31); Mean Corpuscular Volume 90 fL (80-97); Platelet Count 499 10^3/ul (150-450); Red Blood Count 2.19 10^6/ul (4.00-5.40); Red Cell Distribution Width 16 % (10.5-15); White Blood Count 13.9 10^3/ul (3.5-10.8)
[2018-03-07 06:19] LABS: EGFR Non-African American 23.3 (>60)
[2018-03-07 06:36] LABS: ABS Basophils 0.1 10^3/ul (0-0.2); ABS Eosinophils 0.3 10^3/ul (0-0.6); ABS Lymphocytes 1.4 10^3/ul (1.0-4.8); ABS Monocytes 1.4 10^3/ul (0-0.8); ABS Neutrophils 10.7 10^3/ul (1.5-7.7); ABS Nucleated RBC 0 10^3/ul; Eosinophil % 2.1 % (0-6); Nucleated Red Blood Cells % 0.1
[2018-03-07] MEDS: Mometasone/Formoter 200/5 MDI INH SCH ×3 (07:59→20:15)
[2018-03-07] MEDS: UMECLIDIN MDI INH SCH (08:02)
[2018-03-07] MEDS: Gabapentin CAP(*) 100 MG PO SCH ×2 (08:31→19:45)
[2018-03-07] MEDS: Aspirin EC TAB* 81 MG TAB.EC PO SCH (08:31)
[2018-03-07] MEDS: Atorvastatin* 20 MG TAB PO SCH (08:31)
[2018-03-07] MEDS: Cyanocobalamin TAB* 500 MCG PO SCH (08:31)
[2018-03-07] MEDS: Metoprolol Succinate XL TAB* 25 MG PO SCH (08:50)
[2018-03-07] MEDS: Montelukast Sodium TAB* 10 MG PO SCH (08:51)
[2018-03-07] MEDS ORDERED: Vancomycin(*) 1,000 MG in NS 0.9% 250 ML* 250 ML IVPB ONE (11:30)
[2018-03-07] MEDS ORDERED: Vancomycin per Pharmacy* NOTE FOLLOW UP SCH (12:00)
[2018-03-07] MEDS ORDERED: Furosemide IV* 10 MG/ML VIAL (40 MG) IV SLOW PU ONE (13:57)
--- NOTE | 2018-03-07 14:31 | PN ---
Subjective Date of Service: 03/07/18 Interval History: Patient today states she feels very poorly. Patient states her SOB has stayed about the same. Patient had minor epistaxis overnight but denies a feeling of blood going down the back of her throat. Patient denies dysuria, frequency, or other changes in urine. Patient denies CP, N/V, abdominal pain, diarrhea, melena , hematochezia, or dizziness. Family History: Unchanged from Admission Social History: Unchanged from Admission Past Medical History: Unchanged from Admission Objective Active Medications: Acetaminophen (Tylenol Tab*) 650 mg PO Q4H PRN PRN Reason: FEVER/PAIN Last Admin: 03/06/18 12:12 Dose: 650 mg Albuterol (Ventolin Hfa Inhaler*) 1 puff INH Q4H PRN PRN Reason: SHORTNESS OF BREATH Last Admin: 03/07/18 13:11 Dose: 1 puff Aspirin (Aspirin Ec Tab*) 81 mg PO DAILY [facility] Last Admin: 03/07/18 08:31 Dose: 81 mg Atorvastatin Calcium (Lipitor*) 20 mg PO DAILY [facility] Last Admin: 03/07/18 08:31 Dose: 20 mg Cyanocobalamin (Vitamin B12 Tab*) 500 mcg PO DAILY [facility] Last Admin: 03/07/18 08:31 Dose: 500 mcg Gabapentin (Neurontin Cap(*)) 100 mg PO DAILY [facility] Last Admin: 03/07/18 08:31 Dose: 100 mg Gabapentin (Neurontin Cap(*)) 200 mg PO BEDTIME [facility] Last Admin: 03/06/18 20:01 Dose: 200 mg Metoprolol Succinate (Toprol Xl Tab*) 25 mg PO DAILY [facility] Last Admin: 03/07/18 08:50 Dose: 25 mg Mometasone Furoate/Formoterol Fumar (Dulera 200/5 Mdi*) 1 puff INH BID [facility]; Protocol Last Admin: 03/07/18 07:59 Dose: 1 puff Montelukast Sodium (Singulair Tab*) 10 mg PO DAILY [facility] Last Admin: 03/07/18 08:51 Dose: 10 mg Ondansetron HCl (Zofran Inj*) 4 mg IV Q6H PRN PRN Reason: NAUSEA Last Admin: 03/05/18 20:37 Dose: 4 mg Pharmacy Consult (Vancomycin Per Pharmacy*) 1 note FOLLOW UP .VANC PER PHARMACY [facility] Pharmacy Consult (Vancomycin Random Level*) 1 note FOLLOW UP 0600 ONE Stop: 03/08/18 06:01 Umeclidinium [place] (Incruse Ellipta Mdi (Nf)) 1 inh INH DAILY [facility] Last Admin: 03/07/18 08:02 Dose: Not Given Vital Signs - 8 hr 03/07/18 03/07/18 03/07/18 07:46 08:01 08:26 Temperature 99.3 F Pulse Rate 121 84 Respiratory 16 22 Rate Blood Pressure 104/50 (mmHg) O2 Sat by Pulse 93 Oximetry 03/07/18 03/07/18 03/07/18 08:31 10:43 11:07 Temperature 99.1 F 98.6 F Pulse Rate 91 78 Respiratory 16 Rate Blood Pressure 105/51 107/31 (mmHg) O2 Sat by Pulse 100 100 Oximetry 03/07/18 03/07/18 11:33 11:43 Temperature 98.4 F Pulse Rate 67 Respiratory 24 22 Rate Blood Pressure 114/30 (mmHg) O2 Sat by Pulse 100 Oximetry Oxygen Devices in Use Now: Nasal Cannula Appearance: Patient is a 72yo female who appears older than stated age and is sitting in the bad in [facility]. Eyes: No Scleral Icterus, PERRLA Ears/Nose/Mouth/Throat: NL Teeth, Lips, Gums, Clear Oropharnyx, Mucous Membranes Moist Neck: NL Appearance and Movements; NL JVP, Trachea Midline Respiratory: Symmetrical Chest Expansion and Respiratory Effort, - - Diminished throughout, no other adventitious lung sounds. Cardiovascular: NL Sounds; No Murmurs; No JVD, RRR, No Edema Abdominal: NL Sounds; No Tenderness; No Distention, No Hepatosplenomegaly Lymphatic: No Cervical Adenopathy Extremities: No Edema, No Clubbing, Cyanosis Skin: No Rash or Ulcers, No Nodules or Sclerosis Neurological: Alert and Oriented x 3, NL Sensation, NL Muscle Strength and Tone , - - CN II-XII intact. Result Diagrams: 03/07/18 05:47 03/07/18 05:47 Additional Lab and Data: Lab Results Microbiology and Other Data: Microbiology 03/05/18 14:31 Urine Culture - Preliminary Urine Enterococcus Faecium Diagnostic Imaging: . EKG Data: . Assess/Plan/Problems-Billing Assessment: A 72 y/o female with multiple medical issues, who presented to ED 24 hrs after being discharged from hospital with c/o L arm pain and weakness, found to be hypotensive, and to have worsening anemia and UTI who is being transfused and is on Vancomycin for multi-drug resistant UTI. - Patient Problems (1) Anemia Current Visit: No Status: Acute Code(s): D64.9 - ANEMIA, UNSPECIFIED SNOMED Code(s): 528460942 Comment: - Acute on chronic, Transfuse 2u PRBC - Normocytic - Iron panel consistent with WAI, IV iron considered after stabilization - Minor epistaxis, Stool occult blood and hold heparin and Brilinta. - Possibly partially due to hemodilution (2) Elevated troponin Current Visit: No Status: Acute Code(s): R74.8 - ABNORMAL LEVELS OF OTHER SERUM ENZYMES SNOMED Code(s): 922498201 Comment: - Likely demand ischemia, no EKG changes and resolution of chest pain - Repeated echo with no changes - Continue statin, ASA, BB - Brilinta held. (3) UTI (urinary tract infection) Current Visit: No Status: Acute Comment: - Enterococcus resistant to multiple antibiotics - Switch to Vancomycin - Possibly contributing to hypotension and demand ischemia (4) Weakness Current Visit: Yes Status: Acute Code(s): R53.1 - WEAKNESS SNOMED Code(s) : 78039380 Comment: - Worsening, Likely combination of physical deconditioning, anemia, and UTI. - PT/OT, likely discharge to SNF (5) Diastolic CHF Current Visit: No Status: Acute Code(s): I50.30 - UNSPECIFIED DIASTOLIC ( CONGESTIVE) HEART FAILURE SNOMED Code(s): 022048261 Comment: - Possibly worsening respiratory status with large fluid infusion and TACO - IV lasix PRN with transfusions - Continue Home Lasix dose daily (6) COPD (chronic obstructive pulmonary disease) Current Visit: No Status: Acute Code(s): J44.9 - CHRONIC OBSTRUCTIVE PULMONARY DISEASE, UNSPECIFIED SNOMED Code(s): 78601976 Comment: - No signs of exacerbation. She has chronic hypoxic respiratory failure and requires 3L O2 continuously at home. - Continue chronic treatments. (7) HTN (hypertension) Current Visit: No Status: Chronic Code(s): I10 - ESSENTIAL (PRIMARY) HYPERTENSION SNOMED Code(s): 78120902 Comment: - Continue furosemide and metoprolol at reduced dose - Recent discontinuation of ARB and Diltiazem - Resume diltiazem preferentially for anti-anginal effects. (8) Chronic respiratory failure Current Visit: No Status: Acute Code(s): J96.10 - CHRONIC RESPIRATORY FAILURE, UNSP W HYPOXIA OR HYPERCAPNIA SNOMED Code(s): 06685885 Comment: - 3L O2 at baseline (9) DVT prophylaxis Current Visit: No Status: Acute Code(s): TTL6874 - SNOMED Code(s): 383840743 Comment: - SCDs in setting of anemia Status and Disposition: Inpatient. Social workers to consult for STR placement.
[2018-03-07] MEDS: Morphine INJ* 4 MG/ML 1 ML SYRINGE (NEW SYRINGE VERSION) IV PRN (17:24)
[2018-03-07] MEDS: Acetaminophen TAB* 325 MG PO PRN ×2 (19:45→23:23)
[2018-03-07 21:13] LABS: Hematocrit 26 % (35-47); Hemoglobin 8.6 g/dl (12.0-16.0)
[2018-03-07] MEDS ORDERED: diPHENhydraMINE IV* 50 MG/ML 1 ml VIAL (BENADRYL) IV PRN (22:47)
[2018-03-08] MEDS: Morphine INJ* 4 MG/ML 1 ML SYRINGE (NEW SYRINGE VERSION) IV PRN ×2 (03:33→20:56)
[2018-03-08] MEDS ORDERED: Vancomycin Random Level* NOTE FOLLOW UP ONE (06:00)
[2018-03-08 06:01] LABS: EGFR Non-African American 25.6 (>60)
[2018-03-08] MEDS: Albuterol HFA INHALER* 8 gm MDI INH PRN (06:15)
[2018-03-08] MEDS: UMECLIDIN MDI INH SCH (07:44)
[2018-03-08] MEDS: Mometasone/Formoter 200/5 MDI INH SCH ×2 (07:44→19:56)
[2018-03-08 07:53] LABS: ABS Basophils 0.2 10^3/ul (0-0.2); ABS Eosinophils 0.5 10^3/ul (0-0.6); ABS Lymphocytes 1.5 10^3/ul (1.0-4.8); ABS Monocytes 1.7 10^3/ul (0-0.8); ABS Neutrophils 12.2 10^3/ul (1.5-7.7); ABS Nucleated RBC 0 10^3/ul; Eosinophil % 3.2 % (0-6); Hematocrit 31 % (35-47); Hemoglobin 10.2 g/dl (12.0-16.0); Lymphocyte % 9.1 % (25-47); Mean Corpuscular HGB Conc 33 g/dl (31-36); Mean Corpuscular Hemoglobin 29 pg (27-31); Mean Corpuscular Volume 87 fL (80-97); Mean Platelet Volume 8.9 um3 (7.4-10.4); Nucleated Red Blood Cells % 0.1; Platelet Count 433 10^3/ul (150-450); Red Blood Count 3.55 10^6/ul (4.00-5.40); Red Cell Distribution Width 17 % (10.5-15)
[2018-03-08] MEDS ORDERED: Vancomycin(*) 1,500 MG in NS 0.9% 250 ML* 250 ML IVPB ONE (09:30)
[2018-03-08] MEDS: Atorvastatin* 20 MG TAB PO SCH (09:34)
[2018-03-08] MEDS: Cyanocobalamin TAB* 500 MCG PO SCH (09:34)
[2018-03-08] MEDS: Aspirin EC TAB* 81 MG TAB.EC PO SCH (09:34)
[2018-03-08] MEDS: Metoprolol Succinate XL TAB* 25 MG PO SCH (09:34)
[2018-03-08] MEDS: Gabapentin CAP(*) 100 MG PO SCH ×2 (09:35→20:56)
[2018-03-08] MEDS: Furosemide TAB* 40 MG PO SCH (09:35)
[2018-03-08] MEDS: Montelukast Sodium TAB* 10 MG PO SCH (09:35)
[2018-03-08] MEDS ORDERED: Cefepime 2 GM in Dextrose(*) 2 GM/50 ML BAG IV SCH (10:00)
[2018-03-08] MEDS ORDERED: Iron Sucrose* 200 MG in NS 0.9% 100 ML* 100 ML IVPB ONE (10:30)
--- NOTE | 2018-03-08 10:32 | RAD ---
Indication: Tachypnea. Sepsis. COPD oxygen dependent. Comparison: March 05, 2018 and December 21, 2017 radiographs. Technique: Upright AP 1015 hours Report: Diffuse prominence of the interstitial markings without change. No focal pulmonary lesion, compelling alveolar consolidation, pleural effusion, pneumothorax. Upper normal heart size. Mildly prominent and ill-defined central pulmonary vasculature. IMPRESSION: #. Stigmata of chronic obstructive pulmonary disease. #. Probable mild pulmonary vascular congestion new compared with the March 05, 2018 exam.
--- NOTE | 2018-03-08 11:30 | PN ---
Subjective Date of Service: 03/08/18 Interval History: Patient somewhat less coherent today. Patient is able to follow conversation but often makes statements that are only somewhat connected to the events going on. Patient is having significant SOB which responds to morphine. Patient having chills with possible rigors. Patient denies N/V, CP, abdominal pain, dysuria, dizziness, palpitations, or other pain. Family History: Unchanged from Admission Social History: Unchanged from Admission Past Medical History: Unchanged from Admission Objective Active Medications: Acetaminophen (Tylenol Tab*) 650 mg PO Q4H PRN PRN Reason: FEVER/PAIN Last Admin: 03/07/18 23:23 Dose: 650 mg Albuterol (Ventolin Hfa Inhaler*) 1 puff INH Q4H PRN PRN Reason: SHORTNESS OF BREATH Last Admin: 03/08/18 06:15 Dose: 1 puff Aspirin (Aspirin Ec Tab*) 81 mg PO DAILY [facility] Last Admin: 03/08/18 09:34 Dose: 81 mg Atorvastatin Calcium (Lipitor*) 20 mg PO DAILY [facility] Last Admin: 03/08/18 09:34 Dose: 20 mg Cyanocobalamin (Vitamin B12 Tab*) 500 mcg PO DAILY [facility] Last Admin: 03/08/18 09:34 Dose: 500 mcg Diphenhydramine HCl (Benadryl Iv*) 25 mg IV Q6H PRN PRN Reason: PRURITIS Last Admin: 03/07/18 23:23 Dose: 25 mg Furosemide (Lasix Tab*) 40 mg PO DAILY [facility] Last Admin: 03/08/18 09:35 Dose: 40 mg Gabapentin (Neurontin Cap(*)) 100 mg PO DAILY [facility] Last Admin: 03/08/18 09:35 Dose: 100 mg Gabapentin (Neurontin Cap(*)) 200 mg PO BEDTIME [facility] Last Admin: 03/07/18 19:45 Dose: 200 mg Iron Sucrose 200 mg/ Sodium (Chloride) 110 mls @ 110 mls/hr IVPB ONCE ONE Stop: 03/08/18 11:29 Cefepime HCl (Maxipime 1 Gm In Dextrose Duplex (*)) 1 gm in 50 mls @ 100 mls/ hr IV Q24H [facility] Metoprolol Succinate (Toprol Xl Tab*) 25 mg PO DAILY [facility] Last Admin: 03/08/18 09:34 Dose: 25 mg Mometasone Furoate/Formoterol Fumar (Dulera 200/5 Mdi*) 1 puff INH BID [facility]; Protocol Last Admin: 03/08/18 07:44 Dose: 1 puff Montelukast Sodium (Singulair Tab*) 10 mg PO DAILY [facility] Last Admin: 03/08/18 09:35 Dose: 10 mg Morphine Sulfate (Morphine Inj (Syringe)*) 2 mg IV Q4H PRN PRN Reason: DISCOMFORT Last Admin: 03/08/18 03:33 Dose: 2 mg Ondansetron HCl (Zofran Inj*) 4 mg IV Q6H PRN PRN Reason: NAUSEA Last Admin: 03/05/18 20:37 Dose: 4 mg Pharmacy Consult (Vancomycin Per Pharmacy*) 1 note FOLLOW UP .VANC PER PHARMACY [facility] Pharmacy Consult (Vancomycin Random Level*) 1 note FOLLOW UP ONCE ONE Stop: 03/09/18 06:01 Umeclidinium [place] (Incruse Ellipta Mdi (Nf)) 1 inh INH DAILY [facility] Last Admin: 03/08/18 07:44 Dose: Not Given Vital Signs - 8 hr 03/08/18 03/08/18 03/08/18 03:33 04:07 05:00 Temperature 98.2 F Pulse Rate Respiratory 24 24 Rate Blood Pressure (mmHg) O2 Sat by Pulse Oximetry 03/08/18 03/08/18 03/08/18 06:16 07:25 07:28 Temperature 98.5 F Pulse Rate 111 79 99 Respiratory 24 Rate Blood Pressure 129/86 (mmHg) O2 Sat by Pulse 100 93 Oximetry 03/08/18 03/08/18 08:00 09:35 Temperature Pulse Rate Respiratory 22 16 Rate Blood Pressure (mmHg) O2 Sat by Pulse Oximetry Oxygen Devices in Use Now: Nasal Cannula Appearance: Patient is a 72yo female who appears older than stated age and is sitting in the bed in [facility]. Eyes: No Scleral Icterus, PERRLA Ears/Nose/Mouth/Throat: NL Teeth, Lips, Gums, Clear Oropharnyx, Mucous Membranes Moist Neck: NL Appearance and Movements; NL JVP, Trachea Midline Respiratory: Symmetrical Chest Expansion and Respiratory Effort, Clear to Auscultation, - - Diminshed. Cardiovascular: NL Sounds; No Murmurs; No JVD, RRR, No Edema Abdominal: NL Sounds; No Tenderness; No Distention, No Hepatosplenomegaly Lymphatic: No Cervical Adenopathy Extremities: No Edema, No Clubbing, Cyanosis Skin: No Rash or Ulcers, No Nodules or Sclerosis Neurological: Alert and Oriented x 3, NL Sensation, NL Muscle Strength and Tone , - - CN II-XII intact. Result Diagrams: 03/08/18 07:16 03/08/18 05:32 Additional Lab and Data: Lab Results Microbiology and Other Data: Microbiology 03/05/18 14:31 Urine Culture - Preliminary Urine Enterococcus Faecium Diagnostic Imaging: . EKG Data: . Assess/Plan/Problems-Billing Assessment: A 72 y/o female with multiple medical issues, who presented to ED 24 hrs after being discharged from hospital with c/o L arm pain and weakness, found to be hypotensive, and to have worsening anemia and UTI who is being transfused and is on Vancomycin for multi-drug resistant UTI. - Patient Problems (1) Sepsis Current Visit: Yes Status: Acute Comment: - Fever overnight with transfusion stopped for possible reaction - Also tachycardic, increased tachypnea, and perisistent fevers this AM - Blood Cultures, UA pending - CXR shows no focal consolidation - Broaden coverage to include cefepime renally dosed - No hypotension, with pulmonary edema, will not give fluid bolus at this time. (2) Anemia Current Visit: No Status: Acute Code(s): D64.9 - ANEMIA, UNSPECIFIED SNOMED Code(s): 506253939 Comment: - Acute on chronic, Transfused 2u PRBC- improved to greater than baseline - Normocytic - Iron panel consistent with WAI, IV iron starting today while inpatient. - Minor epistaxis, Stool occult blood pending and hold heparin and Brilinta. - Erythropoetin level not elevated in setting of anemia, should follow up with Hematology to discuss epo injection. (3) Elevated troponin Current Visit: No Status: Acute Code(s): R74.8 - ABNORMAL LEVELS OF OTHER SERUM ENZYMES SNOMED Code(s): 685487165 Comment: - Likely demand ischemia, no EKG changes and resolution of chest pain - Repeated echo with no changes - Continue statin, ASA, BB - Brilinta held. (4) UTI (urinary tract infection) Current Visit: No Status: Acute Comment: - Enterococcus resistant to multiple antibiotics - Switch to Vancomycin - Possibly contributing to hypotension and demand ischemia (5) Weakness Current Visit: Yes Status: Acute Code(s): R53.1 - WEAKNESS SNOMED Code(s) : 02517220 Comment: - Worsening, Likely combination of physical deconditioning, anemia, and UTI. - PT/OT, likely discharge to SNF (6) Diastolic CHF Current Visit: No Status: Acute Code(s): I50.30 - UNSPECIFIED DIASTOLIC ( CONGESTIVE) HEART FAILURE SNOMED Code(s): 321231004 Comment: - Possibly worsening respiratory status with large fluid infusion and TACO - New pulmonary edema. - Continue Home Lasix dose daily (7) COPD (chronic obstructive pulmonary disease) Current Visit: No Status: Acute Code(s): J44.9 - CHRONIC OBSTRUCTIVE PULMONARY DISEASE, UNSPECIFIED SNOMED Code(s): 50893904 Comment: - No signs of exacerbation. She has chronic hypoxic respiratory failure and requires 3L O2 continuously at home. - Continue chronic treatments. (8) HTN (hypertension) Current Visit: No Status: Chronic Code(s): I10 - ESSENTIAL (PRIMARY) HYPERTENSION SNOMED Code(s): 13749786 Comment: - Continue furosemide and metoprolol at reduced dose - Recent discontinuation of ARB and Diltiazem - Resume diltiazem preferentially for anti-anginal effects. (9) Chronic respiratory failure Current Visit: No Status: Acute Code(s): J96.10 - CHRONIC RESPIRATORY FAILURE, UNSP W HYPOXIA OR HYPERCAPNIA SNOMED Code(s): 89481256 Comment: - 3L O2 at baseline (10) DVT prophylaxis Current Visit: No Status: Acute Code(s): QNB3038 - SNOMED Code(s): 044039736 Comment: - SCDs in setting of anemia until stool occult negative. Status and Disposition: Inpatient. Social workers to consult for STR placement.
[2018-03-08] MEDS: Cefepime 1 GM in Dextrose(*) 1 GM/50 ML BAG IV SCH (11:59)
[2018-03-08] MEDS: Acetaminophen TAB* 325 MG PO PRN (12:56)
[2018-03-08 13:21] LABS: Urine Appearance Cloudy; Urine Blood 1+ (Negative); Urine Color Straw; Urine Ketones Negative (Negative); Urine Protein Negative (Negative); Urine Red Blood Cell Trace(0-2/hpf) (Absent); Urine Specific Gravity 1.008 (1.010-1.030); Urine Urobilinogen Negative (Negative); Urine White Blood Cell Trace(0-5/hpf) (Absent)
[2018-03-09] MEDS ORDERED: Vancomycin Random Level* NOTE FOLLOW UP ONE (06:00)
[2018-03-09 06:22] LABS: Hematocrit 30 % (35-47); Hemoglobin 9.7 g/dl (12.0-16.0); Mean Corpuscular HGB Conc 33 g/dl (31-36); Mean Corpuscular Hemoglobin 29 pg (27-31); Mean Corpuscular Volume 88 fL (80-97); Mean Platelet Volume 8.5 um3 (7.4-10.4); Platelet Count 440 10^3/ul (150-450); Red Blood Count 3.37 10^6/ul (4.00-5.40); Red Cell Distribution Width 17 % (10.5-15); White Blood Count 12.8 10^3/ul (3.5-10.8)
[2018-03-09 06:25] LABS: ABS Basophils 0.2 10^3/ul (0-0.2); ABS Eosinophils 0.2 10^3/ul (0-0.6); ABS Monocytes 1.7 10^3/ul (0-0.8); ABS Neutrophils 9.8 10^3/ul (1.5-7.7); ABS Nucleated RBC 0 10^3/ul; Eosinophil % 1.7 % (0-6); Lymphocyte % 7.8 % (25-47); Nucleated Red Blood Cells % 0.1
[2018-03-09 06:38] LABS: EGFR Non-African American 28.5 (>60)
[2018-03-09] MEDS: UMECLIDIN MDI INH SCH (07:54)
[2018-03-09] MEDS: Albuterol HFA INHALER* 8 gm MDI INH PRN (07:55)
[2018-03-09] MEDS: Mometasone/Formoter 200/5 MDI INH SCH ×2 (07:55→19:53)
[2018-03-09] MEDS ORDERED: Iron Sucrose* 200 MG in NS 0.9% 100 ML* 100 ML IVPB ONE (08:30)
[2018-03-09] MEDS: Metoprolol Succinate XL TAB* 25 MG PO SCH (09:11)
[2018-03-09] MEDS: Cyanocobalamin TAB* 500 MCG PO SCH (09:12)
[2018-03-09] MEDS: Magnesium Oxide TAB* 400 MG PO SCH (09:12)
[2018-03-09] MEDS: Aspirin EC TAB* 81 MG TAB.EC PO SCH (09:12)
[2018-03-09] MEDS: Montelukast Sodium TAB* 10 MG PO SCH (09:12)
[2018-03-09] MEDS: Atorvastatin* 20 MG TAB PO SCH (09:12)
[2018-03-09] MEDS: Gabapentin CAP(*) 100 MG PO SCH ×2 (09:13→20:13)
[2018-03-09] MEDS: Furosemide TAB* 40 MG PO SCH (09:13)
[2018-03-09] MEDS: Morphine INJ* 4 MG/ML 1 ML SYRINGE (NEW SYRINGE VERSION) IV PRN ×3 (09:14→21:48)
[2018-03-09] MEDS ORDERED: Ropinirole TAB* 0.5 MG TAB PO PRN (09:48)
[2018-03-09] MEDS: Cefepime 1 GM in Dextrose(*) 1 GM/50 ML BAG IV SCH (11:15)
[2018-03-09] MEDS: Heparin VIAL(*) 5000 UNITS/ML VIAL (FIVE THOUSAND) SUBCUT SCH ×2 (14:10→20:13)
--- NOTE | 2018-03-09 16:12 | PN ---
Subjective Date of Service: 03/09/18 Interval History: Patient is feeling better today. States SOB improved. No more F/C. No dizziness , CP, dysuria, abdominal pain, diarrhea, melena, hematochezia. No reaction to Iron. Patient initially refused ROC[facility]LE but was then amenable when daughter stated that she would be unable to care for her at home. Family History: Unchanged from Admission Social History: Unchanged from Admission Past Medical History: Unchanged from Admission Objective Active Medications: Acetaminophen (Tylenol Tab*) 650 mg PO Q4H PRN PRN Reason: FEVER/PAIN Last Admin: 03/08/18 12:56 Dose: 650 mg Albuterol (Ventolin Hfa Inhaler*) 1 puff INH Q4H PRN PRN Reason: SHORTNESS OF BREATH Last Admin: 03/09/18 07:55 Dose: 1 puff Aspirin (Aspirin Ec Tab*) 81 mg PO DAILY [facility] Last Admin: 03/09/18 09:12 Dose: 81 mg Atorvastatin Calcium (Lipitor*) 20 mg PO DAILY [facility] Last Admin: 03/09/18 09:12 Dose: 20 mg Cyanocobalamin (Vitamin B12 Tab*) 500 mcg PO DAILY [facility] Last Admin: 03/09/18 09:12 Dose: 500 mcg Furosemide (Lasix Tab*) 40 mg PO DAILY [facility] Last Admin: 03/09/18 09:13 Dose: 40 mg Gabapentin (Neurontin Cap(*)) 100 mg PO DAILY [facility] Last Admin: 03/09/18 09:13 Dose: 100 mg Gabapentin (Neurontin Cap(*)) 200 mg PO BEDTIME [facility] Last Admin: 03/08/18 20:56 Dose: 200 mg Heparin Sodium (Porcine) (Heparin Vial(*)) 5,000 units SUBCUT Q12HR [facility] Last Admin: 03/09/18 14:10 Dose: 5,000 units Magnesium Oxide (Magox 400 Tab*) 400 mg PO DAILY [facility] Last Admin: 03/09/18 09:12 Dose: 400 mg Metoprolol Succinate (Toprol Xl Tab*) 25 mg PO DAILY [facility] Last Admin: 03/09/18 09:11 Dose: 25 mg Mometasone Furoate/Formoterol Fumar (Dulera 200/5 Mdi*) 1 puff INH BID [facility]; Protocol Last Admin: 03/09/18 07:55 Dose: 1 puff Montelukast Sodium (Singulair Tab*) 10 mg PO DAILY [facility] Last Admin: 03/09/18 09:12 Dose: 10 mg Morphine Sulfate (Morphine Inj (Syringe)*) 2 mg IV Q4H PRN PRN Reason: DISCOMFORT Last Admin: 03/09/18 14:10 Dose: 2 mg Ondansetron HCl (Zofran Inj*) 4 mg IV Q6H PRN PRN Reason: NAUSEA Last Admin: 03/05/18 20:37 Dose: 4 mg Pharmacy Consult (Vancomycin Per Pharmacy*) 1 note FOLLOW UP .VANC PER PHARMACY [facility] Ropinirole HCl (Requip Tab*) 0.5 mg PO BID PRN PRN Reason: LEG CRAMPS Last Admin: 03/09/18 10:37 Dose: 0.5 mg Ticagrelor (Brilinta*) 90 mg PO BID [facility] Umeclidinium [place] (Incruse Ellipta Mdi (Nf)) 1 inh INH DAILY [facility] Last Admin: 03/09/18 07:54 Dose: Not Given Vital Signs - 8 hr 03/09/18 03/09/18 03/09/18 09:13 09:14 11:38 Respiratory 18 18 20 Rate 03/09/18 03/09/18 14:10 15:30 Respiratory 20 16 Rate Oxygen Devices in Use Now: Nasal Cannula Appearance: Patient is a 72yo female who appears older than stated age and is sitting in the bed in [facility]. Eyes: No Scleral Icterus, PERRLA Ears/Nose/Mouth/Throat: NL Teeth, Lips, Gums, Clear Oropharnyx, Mucous Membranes Moist Neck: NL Appearance and Movements; NL JVP, Trachea Midline Respiratory: Symmetrical Chest Expansion and Respiratory Effort, - - Diminished. Cardiovascular: NL Sounds; No Murmurs; No JVD, RRR, No Edema Abdominal: NL Sounds; No Tenderness; No Distention, No Hepatosplenomegaly Lymphatic: No Cervical Adenopathy Extremities: No Edema, No Clubbing, Cyanosis Skin: No Rash or Ulcers, No Nodules or Sclerosis Neurological: Alert and Oriented x 3, NL Sensation, NL Muscle Strength and Tone , - - CN II-XII intact. Result Diagrams: 03/09/18 06:08 03/09/18 06:08 Additional Lab and Data: Lab Results Microbiology and Other Data: Microbiology 03/05/18 14:31 Urine Culture - Preliminary Urine Enterococcus Faecium Diagnostic Imaging: . EKG Data: . Assess/Plan/Problems-Billing Assessment: A 72 y/o female with multiple medical issues, who presented to ED 24 hrs after being discharged from hospital with c/o L arm pain and weakness, found to be hypotensive, and to have worsening anemia and UTI who is being transfused and is on Vancomycin for multi-drug resistant UTI. - Patient Problems (1) Sepsis Current Visit: Yes Status: Acute Comment: - Fever overnight with transfusion stopped for possible reaction - Also tachycardic, increased tachypnea, and perisistent fevers in AM - Resolved, likely due to tranfusion reaction - Blood Cultures and repeat UA negative - CXR shows no focal consolidation - Stop cefepime - No hypotension, with pulmonary edema, No fluid bolus given (2) Anemia Current Visit: No Status: Acute Code(s): D64.9 - ANEMIA, UNSPECIFIED SNOMED Code(s): 658390688 Comment: - Acute on chronic, Transfused 2u PRBC- improved to greater than baseline - Normocytic - Iron panel consistent with WAI, IV iron starting today while inpatient. - Minor epistaxis, Stool occult blood pending - Resume Brilinta and Heparin - Erythropoetin level not elevated in setting of anemia, should follow up with Hematology to discuss epo injection. (3) Elevated troponin Current Visit: No Status: Acute Code(s): R74.8 - ABNORMAL LEVELS OF OTHER SERUM ENZYMES SNOMED Code(s): 031793449 Comment: - Likely demand ischemia, no EKG changes and resolution of chest pain - Repeated echo with no changes - Continue statin, ASA, BB, Brilinta (4) UTI (urinary tract infection) Current Visit: No Status: Acute Comment: - Enterococcus resistant to multiple antibiotics - Continue Vancomycin - Will likely need discharge on PO Linezolid (5) Weakness Current Visit: Yes Status: Acute Code(s): R53.1 - WEAKNESS SNOMED Code(s) : 03152507 Comment: - Worsening, Likely combination of physical deconditioning, anemia, and UTI. - PT/OT, likely discharge to SNF (6) Diastolic CHF Current Visit: No Status: Acute Code(s): I50.30 - UNSPECIFIED DIASTOLIC ( CONGESTIVE) HEART FAILURE SNOMED Code(s): 428955292 Comment: - Continue Home Lasix dose daily - Possible mild exacerbation from fluid and blood. (7) COPD (chronic obstructive pulmonary disease) Current Visit: No Status: Acute Code(s): J44.9 - CHRONIC OBSTRUCTIVE PULMONARY DISEASE, UNSPECIFIED SNOMED Code(s): 65259542 Comment: - No signs of exacerbation. She has chronic hypoxic respiratory failure and requires 3L O2 continuously at home. - Continue chronic treatments. (8) HTN (hypertension) Current Visit: No Status: Chronic Code(s): I10 - ESSENTIAL (PRIMARY) HYPERTENSION SNOMED Code(s): 47509791 Comment: - Continue furosemide and metoprolol at reduced dose - Recent discontinuation of ARB and Diltiazem - Resume diltiazem preferentially for anti-anginal effects. (9) Chronic respiratory failure Current Visit: No Status: Acute Code(s): J96.10 - CHRONIC RESPIRATORY FAILURE, UNSP W HYPOXIA OR HYPERCAPNIA SNOMED Code(s): 88024393 Comment: - 3L O2 at baseline (10) DVT prophylaxis Current Visit: No Status: Acute Code(s): OSZ1690 - SNOMED Code(s): 955306996 Comment: - Heparin SubQ Status and Disposition: Inpatient. [facility] placement likely.
[2018-03-09] MEDS: Ticagrelor* 90 MG TAB PO SCH (20:13)
[2018-03-10 06:31] LABS: ABS Basophils 0.1 10^3/ul (0-0.2); ABS Eosinophils 0.3 10^3/ul (0-0.6); ABS Monocytes 1.5 10^3/ul (0-0.8); ABS Nucleated RBC 0 10^3/ul; Eosinophil % 2.1 % (0-6); Hematocrit 29 % (35-47); Hemoglobin 9.7 g/dl (12.0-16.0); Lymphocyte % 7.3 % (25-47); Mean Corpuscular HGB Conc 33 g/dl (31-36); Mean Corpuscular Hemoglobin 29 pg (27-31); Mean Corpuscular Volume 88 fL (80-97); Mean Platelet Volume 8.6 um3 (7.4-10.4); Nucleated Red Blood Cells % 0; Platelet Count 453 10^3/ul (150-450); Red Cell Distribution Width 17 % (10.5-15); White Blood Count 13.9 10^3/ul (3.5-10.8)
[2018-03-10] MEDS: Atorvastatin* 20 MG TAB PO SCH (07:58)
[2018-03-10] MEDS: Heparin VIAL(*) 5000 UNITS/ML VIAL (FIVE THOUSAND) SUBCUT SCH ×2 (07:59→20:23)
[2018-03-10] MEDS: Ticagrelor* 90 MG TAB PO SCH ×2 (07:59→20:23)
[2018-03-10] MEDS: Montelukast Sodium TAB* 10 MG PO SCH (07:59)
[2018-03-10] MEDS: Metoprolol Succinate XL TAB* 25 MG PO SCH (07:59)
[2018-03-10] MEDS: Magnesium Oxide TAB* 400 MG PO SCH (07:59)
[2018-03-10] MEDS: Aspirin EC TAB* 81 MG TAB.EC PO SCH (07:59)
[2018-03-10] MEDS: Furosemide TAB* 40 MG PO SCH (07:59)
[2018-03-10] MEDS: Cyanocobalamin TAB* 500 MCG PO SCH (07:59)
[2018-03-10] MEDS: Gabapentin CAP(*) 100 MG PO SCH ×2 (07:59→20:23)
[2018-03-10] MEDS: UMECLIDIN MDI INH SCH (08:01)
[2018-03-10] MEDS: Albuterol HFA INHALER* 8 gm MDI INH PRN (08:01)
[2018-03-10] MEDS: Mometasone/Formoter 200/5 MDI INH SCH ×2 (08:01→20:14)
[2018-03-10] MEDS: Morphine INJ* 4 MG/ML 1 ML SYRINGE (NEW SYRINGE VERSION) IV PRN (11:23)
--- NOTE | 2018-03-10 14:23 | DCNOTE ---
Subjective Date of Service: 03/10/18 Interval History: Patient reports she is feeling much better today. Denies SOB. no further fevers. Reports appetite is improving. Continues to feel "weak" Family History: Unchanged from Admission Social History: Unchanged from Admission Past Medical History: Unchanged from Admission Objective Active Medications: Acetaminophen (Tylenol Tab*) 650 mg PO Q4H PRN PRN Reason: FEVER/PAIN Last Admin: 03/08/18 12:56 Dose: 650 mg Albuterol (Ventolin Hfa Inhaler*) 1 puff INH Q4H PRN PRN Reason: SHORTNESS OF BREATH Last Admin: 03/10/18 08:01 Dose: 1 puff Aspirin (Aspirin Ec Tab*) 81 mg PO DAILY [facility] Last Admin: 03/10/18 07:59 Dose: 81 mg Atorvastatin Calcium (Lipitor*) 20 mg PO DAILY [facility] Last Admin: 03/10/18 07:58 Dose: 20 mg Cyanocobalamin (Vitamin B12 Tab*) 500 mcg PO DAILY [facility] Last Admin: 03/10/18 07:59 Dose: 500 mcg Furosemide (Lasix Tab*) 40 mg PO DAILY [facility] Last Admin: 03/10/18 07:59 Dose: 40 mg Gabapentin (Neurontin Cap(*)) 100 mg PO DAILY [facility] Last Admin: 03/10/18 07:59 Dose: 100 mg Gabapentin (Neurontin Cap(*)) 200 mg PO BEDTIME [facility] Last Admin: 03/09/18 20:13 Dose: 200 mg Heparin Sodium (Porcine) (Heparin Vial(*)) 5,000 units SUBCUT Q12HR [facility] Last Admin: 03/10/18 07:59 Dose: 5,000 units Magnesium Oxide (Magox 400 Tab*) 400 mg PO DAILY [facility] Last Admin: 03/10/18 07:59 Dose: 400 mg Metoprolol Succinate (Toprol Xl Tab*) 25 mg PO DAILY [facility] Last Admin: 03/10/18 07:59 Dose: 25 mg Mometasone Furoate/Formoterol Fumar (Dulera 200/5 Mdi*) 1 puff INH BID [facility]; Protocol Last Admin: 03/10/18 08:01 Dose: 1 puff Montelukast Sodium (Singulair Tab*) 10 mg PO DAILY [facility] Last Admin: 03/10/18 07:59 Dose: 10 mg Morphine Sulfate (Morphine Inj (Syringe)*) 2 mg IV Q4H PRN PRN Reason: DISCOMFORT Last Admin: 03/10/18 11:23 Dose: 2 mg Ondansetron HCl (Zofran Inj*) 4 mg IV Q6H PRN PRN Reason: NAUSEA Last Admin: 03/05/18 20:37 Dose: 4 mg Pharmacy Consult (Vancomycin Per Pharmacy*) 1 note FOLLOW UP .VANC PER PHARMACY [facility] Ropinirole HCl (Requip Tab*) 0.5 mg PO BID PRN PRN Reason: LEG CRAMPS Last Admin: 03/09/18 10:37 Dose: 0.5 mg Ticagrelor (Brilinta*) 90 mg PO BID [facility] Last Admin: 03/10/18 07:59 Dose: 90 mg Umeclidinium [place] (Incruse Ellipta Mdi (Nf)) 1 inh INH DAILY [facility] Last Admin: 03/10/18 08:01 Dose: Not Given Vital Signs - 8 hr 03/10/18 03/10/18 03/10/18 07:49 07:59 08:00 Temperature 98.5 F Pulse Rate 81 Respiratory 22 16 18 Rate Blood Pressure 130/51 (mmHg) O2 Sat by Pulse 100 95 Oximetry 03/10/18 03/10/18 03/10/18 08:02 09:45 11:23 Temperature Pulse Rate 86 Respiratory 18 20 18 Rate Blood Pressure (mmHg) O2 Sat by Pulse 95 Oximetry 03/10/18 12:20 Temperature Pulse Rate Respiratory 18 Rate Blood Pressure (mmHg) O2 Sat by Pulse Oximetry Oxygen Devices in Use Now: Nasal Cannula Appearance: 72 yo chronically ill female sitting up in a chair in [facility] A+Ox3 Eyes: No Scleral Icterus, PERRLA Ears/Nose/Mouth/Throat: Mucous Membranes Moist Neck: NL Appearance and Movements; NL JVP Respiratory: Symmetrical Chest Expansion and Respiratory Effort, Clear to Auscultation Cardiovascular: NL Sounds; No Murmurs; No JVD, RRR, No Edema Abdominal: NL Sounds; No Tenderness; No Distention, - - obese Extremities: No Edema, No Clubbing, Cyanosis Skin: No Rash or Ulcers, No Nodules or Sclerosis Neurological: Alert and Oriented x 3, NL Sensation, NL Muscle Strength and Tone Lines/Tubes/Other Access: Clean, Dry and Intact Peripheral IV Nutrition: Taking PO's Result Diagrams: 03/10/18 05:55 03/10/18 05:55 Additional Lab and Data: Lab Results Microbiology and Other Data: Microbiology 03/05/18 14:31 Urine Culture - Preliminary Urine Enterococcus Faecium Diagnostic Imaging: . EKG Data: . Assess/Plan/Problems-Billing Assessment: A 72 y/o female with multiple medical issues, who presented to ED 24 hrs after being discharged from hospital with c/o L arm pain and weakness, found to be hypotensive, and to have worsening anemia and UTI who was transfused and treated with Vancomycin for multi-drug resistant UTI. - Patient Problems (1) Sepsis Comment: - Resolved - source was thought to be urine - afebrile- fever two nights ago thought to be secondary to blood transfusion reaction? along with tachycardia - Now Resolved - Blood Cultures and repeat UA negative - CXR shows no focal consolidation (2) Anemia Comment: - Acute on chronic, Transfused 2u PRBC- improved to greater than baseline - Iron panel consistent with WAI, IV iron started yesterday - will DC home on PO iron - Minor epistaxis, Stool occult blood pending - Resume Brilinta and Heparin SQ - Erythropoetin level not elevated in setting of anemia, should follow up with Hematology to discuss epo injection. (3) COPD (chronic obstructive pulmonary disease) Comment: - No signs of exacerbation. She has chronic hypoxic respiratory failure and requires 3L O2 continuously at home. - Continue chronic treatments. (4) Chronic respiratory failure Comment: - 3L O2 at baseline (5) Diastolic CHF Comment: - Continue Home Lasix dose daily - Possible mild exacerbation from fluid and blood. (6) Elevated troponin Comment: - Likely demand ischemia, no EKG changes and resolution of chest pain - Repeated echo with no changes - Continue statin, ASA, BB, Brilinta (7) UTI (urinary tract infection) Comment: - Enterococcus resistant to multiple antibiotic - was treated with Vancomycin - Repeat Urine cx negative for growth (8) HTN (hypertension) Comment: - Continue furosemide and metoprolol at reduced dose - Recent discontinuation of ARB - Diltiazem restarted - tolerating well (9) DVT prophylaxis Comment: - Heparin SubQ Status and Disposition: Inpatient. [facility] placement - [facility]
[2018-03-10] MEDS: Vancomycin(*) 1,000 MG in NS 0.9% 250 ML* 250 ML IVPB ONE ×2 (19:52→22:03)
--- NOTE | 2018-03-11 05:35 | DS ---
CC: Dr. Holbrook; Dr. Acosta; Dr. Elizalde * DISCHARGE SUMMARY: DATE OF ADMISSION: 03/05/18 DATE OF DISCHARGE: 03/11/18 PROVIDER: David Daily NP ATTENDING PHYSICIAN: Dr. Brenda López * (report dictated by David Daily NP). PRIMARY CARE PROVIDER: Dr. Holbrook. PRIMARY/DISCHARGE DIAGNOSES: 1. Sepsis secondary to urinary tract infection. 2. Enterococcus urinary tract infection. 3. Acute on chronic iron-deficiency anemia. 4. Elevated troponin suspected to be secondary to demand ischemia. 5. Generalized weakness. 6. Acute on chronic renal failure (improving). 7. Electrolyte abnormalities. 8. Left arm pain resolved, suspect musculoskeletal. SECONDARY DIAGNOSES: 1. Chronic respiratory failure, on 3 L nasal cannula. 2. Hypertension. 3. Chronic obstructive pulmonary disease. 4. Diastolic congestive heart failure. 5. Obstructive sleep apnea. The patient does not use CPAP or BIPAP. 6. History of uterine cancer, status post hysterectomy. 7. History of peripheral vascular disease and coronary artery disease. DISCHARGE MEDICATIONS: 1. Incruse Ellipta MDI 62.5 mcg inhalation daily. 2. Brilinta 90 mg p.o. b.i.d. 3. Singulair 10 mg p.o. daily. 4. Aspirin 81 mg p.o. daily. 5. Atorvastatin 20 mg p.o. daily. 6. Symbicort 160/4.5 one puff INH b.i.d. 7. Albuterol HFA inhaler 1 puff INH q.4 hours p.r.n. 8. Vitamin B12 5000 mcg p.o. daily. 9. Lasix 40 mg p.o. daily. 10. Gabapentin 100 mg p.o. daily. 11. Neurontin 200 mg p.o. at bedtime. 12. Melatonin 5 mg p.o. at bedtime. 13. Metoprolol succinate XL 25 mg p.o. daily (please note that this was decreased from 50 mg p.o. daily). 14. Magnesium oxide 400 mg p.o. daily. 15. Ferrous sulfate 325 mg p.o. daily (new medication). ALLERGIES: No known allergies. ADVANCE DIRECTIVES: Full code. HISTORY OF PRESENT ILLNESS AND HOSPITAL COURSE: Please see history and physical by Lilia Young NP, for full admission details, but in summary, this is a 72-year-old female, who was admitted on 03/05/18, who had been previously hospitalized from 02/27/18 to 03/04/18 for epistaxis and the patient was found to have worsening of her chronic anemia secondary to epistaxis and received blood transfusion at that time. Her renal failure was thought to be secondary to possible ATN. She was discharged to home with her daughter's help and per her daughter, the patient that morning had reported dizziness when sitting and standing and developed left arm pain radiating into her back and shoulder and was brought back to the emergency department the day after her discharge. In the emergency department, the patient was noted to be hypotensive with systolic blood pressures in the 50 to 100s and was noted to be oriented and mentating well. She denied any fevers, chills, chest pain but does have shortness of breath chronically at her baseline but did not have any exacerbation of shortness of breath. She denied any urinary symptoms as well. Due to the patient's hypotension, which was unclear at the time of admission, the patient was admitted to the hospitalist service and was given IV hydration. Urine culture resulted with enterococcus fairly resistant to antibiotics but sensitive to vancomycin in which she had a 4-day course of vancomycin. Her repeat urine culture was negative with no growth. Her blood cultures were negative. There were no other signs of infection, it is supected her sepsis was secondary to UTI. In regards to her left arm pain, it was suspected this is musculoskeletal pain. She was monitored on telemetry where her troponins were trended, which did peak at 0.24. However, this was thought to be secondary to demand ischemia; this is not uncommon for the patient. She did undergo a recent cardiac stress test on 02/25/18, which placed her at low risk. She did not have any complaints of chest pain throughout hospitalization. The patient reports that her left arm pain has resolved. In regards to the patient's acute on chronic renal failure, it appears on , her creatinine was 5.11 and has slowly improved over the last couple of weeks and today is noted to be 1.59. This is suspected to be secondary to her blood loss anemia and hypotension possibly causing ATN. She has history of chronic anemia in which she is followed by the hub bander, Dr. Acosta. Prior to this hospitalization, she did have an episode of epistaxis, which she was given 1 unit packed red blood cells. She was noted on admission to have a hemoglobin and hematocrit of 8/25 and after IV fluid, was down to 6.8 and 21, the next day being down to 6.4 and 20. The patient did report she had a feeling of blood going down the back of her throat the evening of 03/07/18, but she has no further complaint of this and this resolved quickly. She was transfused with 2 units of packed red blood cells. She was given a dose of IV iron for iron-deficiency anemia. She was restarted on subcu heparin and Brilinta and aspirin in which she has tolerated well without any further signs of bleeding. The patient's metoprolol succinate was decreased from 50 mg daily to 25 mg p.o. daily due to soft blood pressures. Her blood pressures have tolerated this well with blood pressure systolically in the 120s to 130s. The patient continues to have generalized weakness and her daughter does not feel like she can care for her at home. The patient will be transferred to [facility] for subacute rehab. The patient is to follow up with her hub bander. Her erythropoietin level was not elevated in the setting of anemia in which she should follow up with Hematology to discuss EPO injection. The patient did have a possible blood transfusion reaction in which she spiked fever and developed tachycardia and tachypnea. She had a transfusion reaction workup. The patient's symptoms have resolved fairly quickly. The patient today on exam offers no complaints. She reports that she feels better. She denies any fevers or chills. She reports her appetite is improving. She agrees with subacute rehab and admits that she is deconditioned requiring physical therapy prior to going home. DISCHARGE PLAN: 1. The patient is to be transferred to subacute rehab at [facility]. 2. Follow up CBC and BMP in 2 days on , 03/12/18. I would recommend weekly CBCs monitoring the patient's anemia. 3. Follow up with Dr. Acosta, hub bander. 4. Follow up with Dr. Elizalde for acute on chronic renal failure. The patient is stable for discharge to [facility]. TIME SPENT: Approximately 60 minutes spent on this discharge. DAVID DAILY, YOUTH CAREER SPECIALIST [id number]/[facility] #: [id number] [place]
[2018-03-11] MEDS ORDERED: Ferrous Sulfate TAB* 325 MG PO SCH (07:30)
[2018-03-11] MEDS: Albuterol HFA INHALER* 8 gm MDI INH PRN (07:57)
[2018-03-11] MEDS: Mometasone/Formoter 200/5 MDI INH SCH (07:58)
[2018-03-11] MEDS: UMECLIDIN MDI INH SCH (08:00)
[2018-03-11] MEDS: Gabapentin CAP(*) 100 MG PO SCH (08:42)
[2018-03-11] MEDS: Furosemide TAB* 40 MG PO SCH (08:44)
[2018-03-11] MEDS: Magnesium Oxide TAB* 400 MG PO SCH (08:44)
[2018-03-11] MEDS: Metoprolol Succinate XL TAB* 25 MG PO SCH (08:44)
[2018-03-11] MEDS: Montelukast Sodium TAB* 10 MG PO SCH (08:45)
[2018-03-11] MEDS: Ticagrelor* 90 MG TAB PO SCH (08:45)
[2018-03-11] MEDS: Aspirin EC TAB* 81 MG TAB.EC PO SCH (08:45)
[2018-03-11] MEDS: Atorvastatin* 20 MG TAB PO SCH (08:45)
[2018-03-11] MEDS: Cyanocobalamin TAB* 500 MCG PO SCH (08:45)
[2018-03-11] MEDS: Heparin VIAL(*) 5000 UNITS/ML VIAL (FIVE THOUSAND) SUBCUT SCH (08:54)
[2018-03-11 13:34] VITALS: BP 144/42
== END 2018-03-11 13:12 | DRG 682 ==
LOC: ED 11:51 → MEDTELE 15:40 → OBSVTOIN 03-06 15:13 → MEDTELE 03-08 05:07
PROVIDERS: ADMIT Internal Medicine; ATTEND Internal Medicine
PROC: 30233N1 Transfusion of Nonautologous Red Blood Cells into Peripheral Vein, Percutaneous Approach (ICD-10-PCS; principal; 2018-03-07)
DX: N17.0 Acute kidney failure with tubular necrosis (principal); A41.9 Sepsis, unspecified organism; I13.0 Hypertensive heart and chronic kidney disease with heart failure and stage 1 through stage 4 chronic kidney disease, or unspecified chronic kidney disease; J96.11 Chronic respiratory failure with hypoxia; I50.32 Chronic diastolic (congestive) heart failure; N39.0 Urinary tract infection, site not specified; I24.8 Other forms of acute ischemic heart disease; D62 Acute posthemorrhagic anemia; I48.91 Unspecified atrial fibrillation; J44.9 Chronic obstructive pulmonary disease, unspecified; N18.9 Chronic kidney disease, unspecified; I73.9 Peripheral vascular disease, unspecified; M47.9 Spondylosis, unspecified; I25.10 Atherosclerotic heart disease of native coronary artery without angina pectoris; E83.42 Hypomagnesemia; D64.9 Anemia, unspecified; G47.33 Obstructive sleep apnea (adult) (pediatric); E78.5 Hyperlipidemia, unspecified; D63.1 Anemia in chronic kidney disease; B95.2 Enterococcus as the cause of diseases classified elsewhere; Z16.24 Resistance to multiple antibiotics; D50.9 Iron deficiency anemia, unspecified; M79.602 Pain in left arm; Z79.01 Long term (current) use of anticoagulants; Z82.49 Family history of ischemic heart disease and other diseases of the circulatory system; Z90.710 Acquired absence of both cervix and uterus; Z85.41 Personal history of malignant neoplasm of cervix uteri; Z80.8 Family history of malignant neoplasm of other organs or systems; Z99.81 Dependence on supplemental oxygen; Z87.891 Personal history of nicotine dependence; Z83.3 Family history of diabetes mellitus; Z80.0 Family history of malignant neoplasm of digestive organs; Z79.82 Long term (current) use of aspirin
CPT/HCPCS: 36415; 36600; 71045; 80048; 80053; 80202; 81003; 81015; 82550; 82803; 83605; 83735; 84145; 84484; 85014; 85018; 85025; 85610; 86078; 86140; 86850; 86900; 86901; 86922; 87040; 87077; 87086; 87186; 93005; 93306; 94640; 99284; A9270-GY; G0378; G8987-GO-CJ; G8988-GO-CI; J0692; J0696; J1200; J1644; J1756; J1940; J2270; J2405; J3370; J3475; P9040

== ENCOUNTER 2019-03-08 09:43 | Day surgery (SDC) | payer MEDICARE ==
[~2019-03-08 09:43] MED LIST: Cyclopentolate 1% OPTH.SOL* 2 ML BTL ONE; Ketorolac 0.5% OPHTH (NF) 0.5 % 5 ML BTL ONE; Lidocaine 1% MPF ** 5 ML VIAL ONE; Neomycin/Polymy/Dex OPHTH.OIN* 3.5 GM ONE; Phenylephrine OPHTH SOL 2.5%* 2 ML ONE; Povidone Iodine 5% OPTH* 30 ML BTL ONE; Tetracaine 0.5% OPTH.SOL 4 ML* 1 DROP BTL ONE; Tropicamide 1% OPTH.SOL* BTL ONE; acetaZOLAMIDE TAB* 250 MG ONE
[2019-03-08] MEDS ORDERED: Midazolam* 1 MG/ML 2 ML VIAL (2 MG) ONE (10:58)
[2019-03-08 13:41] VITALS: BP 161/58
--- NOTE | 2019-03-08 23:16 | OP ---
DATE OF OPERATION: 03/08/19 [facility] DATE OF : 47 SURGEON: Juan Carlos Shelton MD. ANESTHESIA: Monitored anesthesia care. PREOPERATIVE DIAGNOSIS: Cataract, right eye. POSTOPERATIVE DIAGNOSIS: Cataract, right eye. OPERATIVE PROCEDURE: Extracapsular cataract extraction of the right eye with intraocular lens implant. IMPLANT: SN60WF 23.5 diopter lens to the right eye. COMPLICATIONS: None. DESCRIPTION OF PROCEDURE: The patient was given phenylephrine 2.5 % and cyclopentolate 1% eye drops to the operative eye in the preoperative area. The patient was taken to the operating room where a time-out was taken to identify the correct patient, site, and side of surgery. The patient's right eye was prepped and draped in the usual sterile fashion with 5% Betadine. A second time- out was taken to verify the correct patient, side, and site of surgery, as well as the correct lens implant. A lid speculum was placed to the right eye. A 1mm paracentesis blade was used to make a clear corneal incision. Preservative-free 1% lidocaine was injected into the anterior chamber. DisCoVisc was then injected into the anterior chamber. A 2.75 mm keratome blade was used to make a triplanar incision. A cystotome initiated a capsulorrhexis, which was completed with Utrata forceps in a continuous and curvilinear manner. Hydrodissection of the lens was performed with BSS on a cannula. The lens could be spun in a capsular bag. The phacoemulsification handpiece was used with a divide-and- conquer technique to remove the nucleus. The I/A handpiece then removed the residual cortical lens material. DisCoVisc was injected to inflate the capsular bag. The planned SN60WF 23.5 Diopter lens was injected into the capsular bag. The residual DisCoVisc was removed from the eye with the I/A handpiece. The corneal incisions were hydrated and no leaks occurred at physiologic pressure around 20 mmHg per palpation. The lid speculum was removed and drapes were removed. Maxitrol ointment was placed to the surface of the operative eye. An adhesive patch and shield was then placed on the operative eye. The patient was taken to the post-operative area in stable condition. [id number]/[facility] #: [id number] [facility]
== END 2019-03-08 12:15 | disposition home or self-care (01) ==
LOC: OREAST 09:43
PROVIDERS: ATTEND Student in an Organized Health Care Education/Training Program
DX: H25.811 Combined forms of age-related cataract, right eye (principal); H34.233 Retinal artery branch occlusion, bilateral; J44.9 Chronic obstructive pulmonary disease, unspecified; I10 Essential (primary) hypertension; E78.00 Pure hypercholesterolemia, unspecified; I73.9 Peripheral vascular disease, unspecified; M19.90 Unspecified osteoarthritis, unspecified site; Z72.0 Tobacco use; I25.10 Atherosclerotic heart disease of native coronary artery without angina pectoris; Z99.81 Dependence on supplemental oxygen; G40.89 Other seizures; F32.9 Major depressive disorder, single episode, unspecified
CPT/HCPCS: A9270-GY; J2250; V2632

== ENCOUNTER 2020-09-23 06:06 | Inpatient (IN) ==
[2020-09-23 06:56] LABS: Hematocrit 37 % (35-47); Hemoglobin 12.2 g/dL (12.0-16.0); Mean Corpuscular HGB Conc 33 g/dL (31-36); Mean Corpuscular Hemoglobin 30 pg (27-31); Mean Corpuscular Volume 93 fL (80-97); Mean Platelet Volume 9.4 fL (7.4-10.4); Platelet Count 283 10^3/uL (150-450); Red Cell Distribution Width 18 % (10-15); White Blood Count 15.8 10^3/uL (3.5-10.8)
[2020-09-23 07:04] LABS: ABS Basophils 0.1 10^3/ul (0-0.2); ABS Lymphocytes 2.6 10^3/ul (1.0-4.8); ABS Monocytes 1.7 10^3/ul (0-0.8); ABS Neutrophils 11.4 10^3/ul (1.5-7.7); Eosinophil % 0.1 %; Lymphocyte % 16.3 %
[2020-09-23 07:16] LABS: ALT 18 U/L (7-52); AST 26 U/L (13-39); Albumin 3.1 g/dL (3.2-5.2); Albumin/Globulin Ratio 0.9 (1-3); Alkaline Phosphatase 195 U/L (34-104); Anion Gap 8 mmol/L (2-11); Blood Urea Nitrogen 37 mg/dL (6-24); CO2 Carbon Dioxide 21 mmol/L (22-32); Calcium 9.4 mg/dL (8.6-10.3); Chloride 108 mmol/L (101-111); EGFR Non-African American 22.3 (>60); Globulin 3.4 g/dL (2-4); Glucose 118 mg/dL (70-100); Potassium 3.9 mmol/L (3.5-5.0); Sodium 137 mmol/L (135-145); Total Protein 6.5 g/dL (6.4-8.9)
[2020-09-23 07:29] LABS: Troponin I 0.04 ng/mL (<0.03)
[2020-09-23 09:42] LABS: Troponin I 0.03 ng/mL (<0.03)
[2020-09-23] MEDS ORDERED: Furosemide 40 mg/4 ml IV VIAL IV SLOW PU ONE (10:04)
[2020-09-23 10:17] LABS: Magnesium 1.9 mg/dL (1.9-2.7)
[2020-09-23 12:47] LABS: Troponin I 0.03 ng/mL (<0.03)
[2020-09-23] MEDS: Aspirin EC 81 mg TAB.EC (enteric coated) PO SCH (12:50)
[2020-09-23] MEDS: FLUTICASONE INH SCH (15:56)
[2020-09-23] MEDS: UMECLIDIN MDI INH SCH (15:56)
[2020-09-23] MEDS: VILANTER INH SCH (15:56)
[2020-09-24] MEDS: VILANTER INH SCH ×2 (07:58→12:14)
[2020-09-24] MEDS: FLUTICASONE INH SCH ×2 (07:58→12:14)
[2020-09-24] MEDS: UMECLIDIN MDI INH SCH ×2 (07:58→12:14)
[2020-09-24 08:18] LABS: ABS Basophils 0.1 10^3/ul (0-0.2); ABS Lymphocytes 1.7 10^3/ul (1.0-4.8); ABS Monocytes 1.4 10^3/ul (0-0.8); ABS Neutrophils 13.9 10^3/ul (1.5-7.7); Hematocrit 37 % (35-47); Hemoglobin 11.9 g/dL (12.0-16.0); Mean Corpuscular HGB Conc 33 g/dL (31-36); Mean Corpuscular Hemoglobin 31 pg (27-31); Mean Corpuscular Volume 94 fL (80-97); Mean Platelet Volume 9.1 fL (7.4-10.4); Platelet Count 278 10^3/uL (150-450); Red Blood Count 3.88 10^6 /uL (3.70-4.87); Red Cell Distribution Width 18 % (10-15)
[2020-09-24 08:33] LABS: Calcium 9.5 mg/dL (8.6-10.3); EGFR African American 30.3 (>60); EGFR Non-African American 25.1 (>60); HDL Cholesterol 32.7 mg/dL; Potassium 4.1 mmol/L (3.5-5.0)
[2020-09-24] MEDS: Aspirin EC 81 mg TAB.EC (enteric coated) PO SCH (09:16)
[2020-09-24] MEDS ORDERED: Furosemide 40 mg/4 ml IV VIAL IV ONE (10:12)
[2020-09-24 23:47] LABS: Urine Appearance Cloudy; Urine Bilirubin Negative (Negative); Urine Blood 3+ (Negative); Urine Color Yellow; Urine Glucose Negative (Negative); Urine Ketones Negative (Negative); Urine Nitrite Negative (Negative); Urine Protein 1+(30 mg/dL) (Negative); Urine Specific Gravity 1.012 (1.002-1.030); Urine Urobilinogen Negative (Negative)
[2020-09-24 23:53] LABS: Urine Bacteria 1+ (Absent); Urine Red Blood Cell 2+(6-10/hpf) (Absent); Urine Squamous Epithelial Cell Present (Absent); Urine White Blood Cell Trace(0-5/hpf) (Absent)
[2020-09-25] MEDS: FLUTICASONE INH SCH (07:37)
[2020-09-25] MEDS: UMECLIDIN MDI INH SCH (07:37)
[2020-09-25] MEDS: VILANTER INH SCH (07:37)
[2020-09-25] MEDS ORDERED: Furosemide 40 mg/4 ml IV VIAL IV SCH (09:00)
[2020-09-25] MEDS: Aspirin EC 81 mg TAB.EC (enteric coated) PO SCH (09:34)
[2020-09-25] MEDS: Potassium Chlor 20 meq TAB.ER PO SCH (09:52)
[2020-09-26 05:46] LABS: ABS Basophils 0.1 10^3/ul (0-0.2); ABS Eosinophils 0.6 10^3/ul (0-0.6); ABS Monocytes 1.1 10^3/ul (0-0.8); ABS Neutrophils 6.9 10^3/ul (1.5-7.7); Eosinophil % 5.3 %; Hematocrit 41 % (35-47); Hemoglobin 13.2 g/dL (12.0-16.0); Lymphocyte % 18.5 %; Mean Corpuscular HGB Conc 32 g/dL (31-36); Mean Corpuscular Hemoglobin 31 pg (27-31); Mean Corpuscular Volume 95 fL (80-97); Nucleated Red Blood Cells % 0.1; Platelet Count 291 10^3/uL (150-450); Red Cell Distribution Width 18 % (10-15); White Blood Count 10.7 10^3/uL (3.5-10.8)
[2020-09-26 06:00] LABS: EGFR African American 35.5 (>60); EGFR Non-African American 29.4 (>60)
[2020-09-26] MEDS: UMECLIDIN MDI INH SCH (08:06)
[2020-09-26] MEDS: FLUTICASONE INH SCH (08:06)
[2020-09-26] MEDS: VILANTER INH SCH (08:06)
[2020-09-26] MEDS: Aspirin EC 81 mg TAB.EC (enteric coated) PO SCH (08:51)
[2020-09-27] MEDS: VILANTER INH SCH (08:24)
[2020-09-27] MEDS: FLUTICASONE INH SCH (08:24)
[2020-09-27] MEDS: UMECLIDIN MDI INH SCH (08:24)
[2020-09-27] MEDS: Aspirin EC 81 mg TAB.EC (enteric coated) PO SCH (09:35)
[2020-09-27] MEDS: Potassium Chlor 20 meq TAB.ER PO SCH ×2 (12:40→12:51)
[2020-09-28] MEDS: UMECLIDIN MDI INH SCH (07:43)
[2020-09-28] MEDS: FLUTICASONE INH SCH (07:43)
[2020-09-28] MEDS: VILANTER INH SCH (07:43)
[2020-09-28 08:44] VITALS: BP 150/36
[2020-09-28] MEDS: Aspirin EC 81 mg TAB.EC (enteric coated) PO SCH (09:04)
== END 2020-09-28 14:20 | DRG 291 ==
LOC: ED 06:06 → MEDTELE 09:38
PROVIDERS: ADMIT Hospitalist; ATTEND Internal Medicine

== ENCOUNTER 2020-10-27 09:57 | Inpatient (IN) ==
[2020-10-27] MEDS ORDERED: Levofloxacin 750 MG IVPREMIX 750 MG/150 ML BAG IVPB ONE (09:59)
[2020-10-27] MEDS ORDERED: Cefepime 2 GM in NS 0.9% 50 ML 50 ML IVPB ONE (09:59)
[2020-10-27] MEDS ORDERED: Cefepime 2 GM IV - ED ONCE IV ONE (10:45)
[2020-10-27 11:22] LABS: Hematocrit 33 % (35-47); Hemoglobin 10.3 g/dL (12.0-16.0); Mean Corpuscular HGB Conc 32 g/dL (31-36); Mean Corpuscular Hemoglobin 31 pg (27-31); Mean Corpuscular Volume 98 fL (80-97); Mean Platelet Volume 10.1 fL (7.4-10.4); Platelet Count 228 10^3/uL (150-450); Red Blood Count 3.34 10^6 /uL (3.70-4.87); Red Cell Distribution Width 18 % (10-15); White Blood Count 22.4 10^3/uL (3.5-10.8)
[2020-10-27 11:23] LABS: ABS Basophils 0.1 10^3/ul (0-0.2); ABS Monocytes 1.9 10^3/ul (0-0.8); ABS Neutrophils 18.4 10^3/ul (1.5-7.7); Lymphocyte % 8.9 %
[2020-10-27 11:29] LABS: Albumin 2.4 g/dL (3.2-5.2); CO2 Carbon Dioxide 21 mmol/L (22-32); Calcium 7.9 mg/dL (8.6-10.3); Chloride 105 mmol/L (101-111); Sodium 138 mmol/L (135-145)
[2020-10-27 11:34] LABS: Activated Partial Thrombo Time 42.2 seconds (26.0-38.0); INR 3.29 (0.82-1.09)
[2020-10-27 11:35] LABS: ALT 13 U/L (7-52); Albumin/Globulin Ratio 0.8 (1-3); Alkaline Phosphatase 97 U/L (35-149); Blood Urea Nitrogen 49 mg/dL (6-24); C Reactive Protein 398.91 mg/L (<8.01); EGFR Non-African American 11.5 (>60); Globulin 2.9 g/dL (2-4); Glucose 137 mg/dL (70-100); Total Protein 5.3 g/dL (6.4-8.9)
[2020-10-27 11:40] LABS: Anion Gap 12 mmol/L (2-11)
[2020-10-27] MEDS ORDERED: NS 0.9% 1000 ml BAG 1,000 ML IV ONE (11:46)
[2020-10-27 13:23] LABS: Potassium Redraw 4.9 mmol/L (3.5-5.0)
[2020-10-27 13:29] LABS: AST Redraw 24 U/L (13-39)
[2020-10-27] MEDS ORDERED: Albuterol 2.5mg/3 ml (0.083%) NEB.SOLN INH PRN (15:27)
[2020-10-27] MEDS ORDERED: Senna TAB 8.6 mg TAB PO PRN (15:29)
[2020-10-27 16:35] LABS: Influenza A Molecular Negative (Negative); Influenza B Molecular Negative (Negative)
[2020-10-27] MEDS ORDERED: Zosyn per Pharmacy NOTE FOLLOW UP SCH (17:00)
[2020-10-27] MEDS ORDERED: Piperacillin/Tazobac ADVAN 3.375 GM in NS 0.9% 100 ml BAG 100 ML IV ONE (17:00)
[2020-10-27 18:56] LABS: Urine Appearance Turbid; Urine Bilirubin Negative (Negative); Urine Blood 2+ (Negative); Urine Color Amber; Urine Glucose Negative (Negative); Urine Ketones Trace (Negative); Urine Nitrite Negative (Negative); Urine Protein 2+(100 mg/dL) (Negative); Urine Urobilinogen Negative (Negative)
[2020-10-27 18:57] LABS: Troponin I 0.08 ng/mL (<0.03)
[2020-10-27 19:02] LABS: Urine Bacteria 2+ (Absent); Urine Red Blood Cell 3+(>10/hpf) (Absent); Urine Squamous Epithelial Cell Present (Absent); Urine White Blood Cell 3+(>20/hpf) (Absent)
[2020-10-27] MEDS ORDERED: NORMOSOL-R pH 7.4 1000 mL BAG 1,000 ML IV SCH (20:00)
[2020-10-27] MEDS ORDERED: NS 0.9% 100 ml BAG 100 ML ONE (21:08)
[2020-10-27] MEDS: Heparin 5000 UNITS/ML 1 mL VIAL SUBCUT SCH (21:15)
[2020-10-27] MEDS ORDERED: Lorazepam PYXIS KEY PRN (22:38)
[2020-10-27] MEDS ORDERED: LORazepam 2 mg VIAL 1 ml IV PUSH PRN (22:38)
[2020-10-27] MEDS: Linezolid 600 MG IVPREMIX(*) 600 MG/300 ML BAG IVPB SCH (22:41)
[2020-10-27] MEDS: ZOSYN 3.375 GM Q12H per EXTENDED INFUSION IV SCH (22:41)
[2020-10-28] MEDS: Heparin 5000 UNITS/ML 1 mL VIAL SUBCUT SCH ×2 (05:23→13:30)
[2020-10-28 05:34] LABS: Hematocrit 29 % (35-47); Hemoglobin 9.5 g/dL (12.0-16.0); Mean Corpuscular HGB Conc 33 g/dL (31-36); Mean Corpuscular Hemoglobin 32 pg (27-31); Mean Corpuscular Volume 97 fL (80-97); Mean Platelet Volume 9.6 fL (7.4-10.4); Platelet Count 198 10^3/uL (150-450); Red Blood Count 3.02 10^6 /uL (3.70-4.87); Red Cell Distribution Width 18 % (10-15); White Blood Count 15.5 10^3/uL (3.5-10.8)
[2020-10-28 05:51] LABS: Calcium 8.4 mg/dL (8.6-10.3); EGFR African American 13.9 (>60); EGFR Non-African American 11.5 (>60); Phosphorus 4.5 mg/dL (2.5-5.0); Potassium 4.7 mmol/L (3.5-5.0)
[2020-10-28 06:03] LABS: ABS Eosinophils 0.1 10^3/ul (0-0.6); ABS Lymphocytes 1.2 10^3/ul (1.0-4.8); ABS Monocytes 1.3 10^3/ul (0-0.8); ABS Neutrophils 12.9 10^3/ul (1.5-7.7); Eosinophil % 0.3 %
[2020-10-28] MEDS: Aspirin EC 81 mg TAB.EC (enteric coated) PO SCH (08:01)
[2020-10-28] MEDS: ZOSYN 3.375 GM Q12H per EXTENDED INFUSION IV SCH ×2 (08:03→20:57)
[2020-10-28] MEDS: Albuterol/Ipratropium NEB.SOL (2.5/0.5 MG) 3 ML NEB.SOLN INH SCH ×4 (10:46→23:37)
[2020-10-28] MEDS: Linezolid 600 MG IVPREMIX(*) 600 MG/300 ML BAG IVPB SCH ×2 (11:17→22:24)
[2020-10-28] MEDS ORDERED: NS 0.9% 1000 ml BAG 1,000 ML IV SCH (22:30)
[2020-10-29] MEDS: Albuterol/Ipratropium NEB.SOL (2.5/0.5 MG) 3 ML NEB.SOLN INH SCH ×6 (03:19→23:39)
[2020-10-29 06:18] LABS: INR 1.87 (0.82-1.09)
[2020-10-29 06:22] LABS: Hematocrit 26 % (35-47); Hemoglobin 8.5 g/dL (12.0-16.0); Mean Corpuscular HGB Conc 32 g/dL (31-36); Mean Corpuscular Hemoglobin 31 pg (27-31); Mean Corpuscular Volume 96 fL (80-97); Mean Platelet Volume 10.2 fL (7.4-10.4); Platelet Count 175 10^3/uL (150-450); Red Blood Count 2.74 10^6 /uL (3.70-4.87); Red Cell Distribution Width 18 % (10-15); White Blood Count 14.3 10^3/uL (3.5-10.8)
[2020-10-29 06:28] LABS: Anion Gap 10 mmol/L (2-11); Blood Urea Nitrogen 75 mg/dL (6-24); CO2 Carbon Dioxide 23 mmol/L (22-32); Calcium 8.3 mg/dL (8.6-10.3); Chloride 102 mmol/L (101-111); EGFR African American 16.6 (>60); EGFR Non-African American 13.7 (>60); Glucose 129 mg/dL (70-100); Magnesium 2.2 mg/dL (1.9-2.7); Phosphorus 3.9 mg/dL (2.5-5.0); Sodium 135 mmol/L (135-145)
[2020-10-29] MEDS: Aspirin EC 81 mg TAB.EC (enteric coated) PO SCH (08:49)
[2020-10-29] MEDS: ZOSYN 3.375 GM Q12H per EXTENDED INFUSION IV SCH ×2 (08:51→20:42)
[2020-10-29] MEDS: Linezolid 600 MG IVPREMIX(*) 600 MG/300 ML BAG IVPB SCH ×2 (10:48→20:42)
[2020-10-29 11:38] LABS: % Iron Saturation 40 % (15-55); Iron 68 ug/dL (50-212); Total Iron Binding Capacity 168 mcg/dL (250-450); Transferrin 120 mg/dL (203-362); Unsaturated Iron Binding < 153 ug/dL
[2020-10-29 11:59] LABS: Ferritin 685.8 ng/mL (11-307)
[2020-10-29 12:03] LABS: Vitamin B12 390 pg/mL (180-914)
[2020-10-29 16:38] LABS: Urine Creatinine Concentration 46.08 mg/dL
[2020-10-29] MEDS: guaiFENesin 100 mg/5 ml LIQ unit dose cup PO PRN (23:18)
[2020-10-30] MEDS: Albuterol/Ipratropium NEB.SOL (2.5/0.5 MG) 3 ML NEB.SOLN INH SCH ×2 (03:22→07:07)
[2020-10-30] MEDS: guaiFENesin 100 mg/5 ml LIQ unit dose cup PO PRN (06:53)
[2020-10-30] MEDS: ZOSYN 3.375 GM Q12H per EXTENDED INFUSION IV SCH ×2 (09:20→20:11)
[2020-10-30] MEDS: Aspirin EC 81 mg TAB.EC (enteric coated) PO SCH (09:20)
[2020-10-30] MEDS: Linezolid 600 MG IVPREMIX(*) 600 MG/300 ML BAG IVPB SCH (09:25)
[2020-10-30 11:36] LABS: Hematocrit 29 % (35-47); Hemoglobin 9.3 g/dL (12.0-16.0); Mean Corpuscular HGB Conc 32 g/dL (31-36); Mean Corpuscular Hemoglobin 31 pg (27-31); Mean Corpuscular Volume 98 fL (80-97); Mean Platelet Volume 9.6 fL (7.4-10.4); Platelet Count 193 10^3/uL (150-450); Red Blood Count 3.02 10^6 /uL (3.70-4.87); Red Cell Distribution Width 19 % (10-15); White Blood Count 18.6 10^3/uL (3.5-10.8)
[2020-10-30 11:39] LABS: INR 1.42 (0.82-1.09)
[2020-10-30 11:47] LABS: Calcium 8.2 mg/dL (8.6-10.3); EGFR Non-African American 15.7 (>60); Magnesium 2.2 mg/dL (1.9-2.7); Phosphorus 3.6 mg/dL (2.5-5.0); Potassium 3.5 mmol/L (3.5-5.0)
[2020-10-30] MEDS ORDERED: Albuterol/Ipratropium NEB.SOL (2.5/0.5 MG) 3 ML NEB.SOLN INH SCH (13:00)
[2020-10-30 15:05] LABS: C Reactive Protein 88.68 mg/L (<8.01)
[2020-10-30] MEDS: Albuterol/Ipratropium NEB.SOL (2.5/0.5 MG) 3 ML NEB.SOLN INH PRN (20:58)
[2020-10-30] MEDS ORDERED: Heparin 5000 UNITS/ML 1 mL VIAL SUBCUT SCH (22:00)
[2020-10-31] MEDS: Linezolid 600 MG IVPREMIX(*) 600 MG/300 ML BAG IVPB SCH ×2 (00:12→12:36)
[2020-10-31] MEDS: Albuterol/Ipratropium NEB.SOL (2.5/0.5 MG) 3 ML NEB.SOLN INH PRN ×4 (06:22→23:33)
[2020-10-31 08:42] LABS: Hematocrit 27 % (35-47); Hemoglobin 8.7 g/dL (12.0-16.0); Mean Corpuscular HGB Conc 33 g/dL (31-36); Mean Corpuscular Hemoglobin 31 pg (27-31); Mean Corpuscular Volume 95 fL (80-97); Mean Platelet Volume 9.5 fL (7.4-10.4); Platelet Count 243 10^3/uL (150-450); Red Blood Count 2.82 10^6 /uL (3.70-4.87); Red Cell Distribution Width 18 % (10-15); White Blood Count 22.9 10^3/uL (3.5-10.8)
[2020-10-31 08:50] LABS: INR 1.38 (0.82-1.09)
[2020-10-31 08:53] LABS: Calcium 8.8 mg/dL (8.6-10.3); EGFR African American 21.8 (>60); Magnesium 2.4 mg/dL (1.9-2.7); Phosphorus 4.1 mg/dL (2.5-5.0); Potassium 3.8 mmol/L (3.5-5.0)
[2020-10-31] MEDS ORDERED: FLUTICAS/UMECLI/VILANT 100-62.5-25 MDI (NF) INH SCH (09:00)
[2020-10-31] MEDS: ZOSYN 3.375 GM Q12H per EXTENDED INFUSION IV SCH (09:41)
[2020-10-31] MEDS: Aspirin EC 81 mg TAB.EC (enteric coated) PO SCH (09:43)
[2020-10-31] MEDS: Mometasone/Formoter 100/5 MDI INH SCH ×2 (10:08→19:33)
[2020-10-31] MEDS: SPIRIVA Respimat (tiotropium) 2.5 mcg/inh Inhaler INH SCH (10:10)
[2020-10-31 10:29] LABS: ABS Basophils 0.1 10^3/ul (0-0.2); ABS Lymphocytes 1.6 10^3/ul (1.0-4.8); ABS Monocytes 1.5 10^3/ul (0-0.8); ABS Neutrophils 19.8 10^3/ul (1.5-7.7); Lymphocyte % 6.8 %
[2020-10-31] MEDS: ceFAZolin 1 GM ADVAN 1 GM in NS 0.9% 50 ML 50 ML IVPB SCH (21:48)
[2020-11-01 06:54] LABS: Hematocrit 25 % (35-47); Hemoglobin 8.1 g/dL (12.0-16.0); Mean Corpuscular HGB Conc 32 g/dL (31-36); Mean Corpuscular Hemoglobin 31 pg (27-31); Mean Corpuscular Volume 96 fL (80-97); Mean Platelet Volume 8.9 fL (7.4-10.4); Nucleated Red Blood Cells % 0.1; Platelet Count 209 10^3/uL (150-450); Red Cell Distribution Width 18 % (10-15); White Blood Count 18.7 10^3/uL (3.5-10.8)
[2020-11-01 07:07] LABS: Calcium 8.4 mg/dL (8.6-10.3); EGFR African American 21.9 (>60); EGFR Non-African American 18.1 (>60); Potassium 4.2 mmol/L (3.5-5.0)
[2020-11-01 08:03] LABS: ABS Neutrophils 16.5 10^3/ul (1.5-7.7)
[2020-11-01] MEDS ORDERED: Naloxone 0.4 mg VIAL 0.4 mg/ml 1 ml VIAL ONE (09:08)
[2020-11-01] MEDS ORDERED: Midazolam 5 mg/5 ml VIAL 1 mg/ml 5 ml VIAL (5 mg) ONE (09:08)
[2020-11-01] MEDS ORDERED: fentaNYL 100 mcg/2 ml 50 MCG/ML VIAL ONE (09:08)
[2020-11-01] MEDS ORDERED: Flumazenil 0.5 mg/5 ml 0.1 MG/ML 5 ml VIAL ONE (09:09)
[2020-11-01] MEDS ORDERED: Acetylcysteine INH SOL (RT) 200 MG/ML 4 ML VIAL INH SCH (10:00)
[2020-11-01] MEDS: Aspirin EC 81 mg TAB.EC (enteric coated) PO SCH (10:44)
[2020-11-01] MEDS: Albuterol/Ipratropium NEB.SOL (2.5/0.5 MG) 3 ML NEB.SOLN INH PRN (11:18)
[2020-11-01] MEDS: Mometasone/Formoter 100/5 MDI INH SCH ×2 (11:19→20:52)
[2020-11-01] MEDS: SPIRIVA Respimat (tiotropium) 2.5 mcg/inh Inhaler INH SCH (11:21)
[2020-11-01] MEDS: ceFAZolin 1 GM ADVAN 1 GM in NS 0.9% 50 ML 50 ML IVPB SCH ×2 (12:36→23:06)
[2020-11-01] MEDS ORDERED: Furosemide 20 mg/2 ml IV VIAL IV SLOW PU ONE (16:48)
[2020-11-01] MEDS ORDERED: Albuterol/Ipratropium NEB.SOL (2.5/0.5 MG) 3 ML NEB.SOLN INH SCH (18:00)
[2020-11-01 18:39] LABS: Urine Appearance Cloudy; Urine Bilirubin Negative (Negative); Urine Blood 2+ (Negative); Urine Color Straw; Urine Glucose Negative (Negative); Urine Ketones Negative (Negative); Urine Nitrite Negative (Negative); Urine Protein Negative (Negative); Urine Specific Gravity 1.009 (1.002-1.030); Urine Urobilinogen Negative (Negative)
[2020-11-01 18:43] LABS: Urine Bacteria 1+ (Absent); Urine Red Blood Cell 2+(6-10/hpf) (Absent); Urine Squamous Epithelial Cell Present (Absent); Urine White Blood Cell 1+(6-10/hpf) (Absent)
[2020-11-01] MEDS: Albuterol/Ipratropium NEB.SOL (2.5/0.5 MG) 3 ML NEB.SOLN INH SCH (20:50)
[2020-11-01] MEDS: Acetylcysteine INH SOL (RT) 200 MG/ML 4 ML VIAL INH SCH (20:50)
[2020-11-02] MEDS: Albuterol/Ipratropium NEB.SOL (2.5/0.5 MG) 3 ML NEB.SOLN INH SCH ×4 (01:57→17:48)
[2020-11-02] MEDS: Acetylcysteine INH SOL (RT) 200 MG/ML 4 ML VIAL INH SCH ×4 (01:57→17:47)
[2020-11-02 05:58] LABS: Calcium 8.3 mg/dL (8.6-10.3); EGFR African American 22.7 (>60); EGFR Non-African American 18.7 (>60); Potassium 3.7 mmol/L (3.5-5.0)
[2020-11-02 06:18] LABS: Hematocrit 23 % (35-47); Hemoglobin 7.6 g/dL (12.0-16.0); Mean Corpuscular HGB Conc 33 g/dL (31-36); Mean Corpuscular Hemoglobin 32 pg (27-31); Mean Corpuscular Volume 96 fL (80-97); Mean Platelet Volume 9.1 fL (7.4-10.4); Platelet Count 207 10^3/uL (150-450); Red Blood Count 2.38 10^6 /uL (3.70-4.87); Red Cell Distribution Width 18 % (10-15); White Blood Count 15.7 10^3/uL (3.5-10.8)
[2020-11-02] MEDS: Mometasone/Formoter 100/5 MDI INH SCH ×2 (08:16→19:08)
[2020-11-02] MEDS: SPIRIVA Respimat (tiotropium) 2.5 mcg/inh Inhaler INH SCH (08:17)
[2020-11-02] MEDS: Aspirin EC 81 mg TAB.EC (enteric coated) PO SCH (10:46)
[2020-11-02 10:50] LABS: Hematocrit 25 % (35-47); Hemoglobin 7.8 g/dL (12.0-16.0)
[2020-11-02] MEDS: ceFAZolin 1 GM ADVAN 1 GM in NS 0.9% 50 ML 50 ML IVPB SCH ×2 (11:10→22:27)
[2020-11-02] MEDS ORDERED: Furosemide 40 mg/4 ml IV VIAL ONE (16:58)
[2020-11-02] MEDS ORDERED: Furosemide 40 mg/4 ml IV VIAL IV ONE (16:59)
[2020-11-02] MEDS: Pantoprazole VIAL 40 MG VIAL IV SCH (21:53)
[2020-11-03] MEDS: Albuterol/Ipratropium NEB.SOL (2.5/0.5 MG) 3 ML NEB.SOLN INH SCH ×3 (01:44→12:52)
[2020-11-03] MEDS: Acetylcysteine INH SOL (RT) 200 MG/ML 4 ML VIAL INH SCH ×4 (01:44→18:54)
[2020-11-03] MEDS: Mometasone/Formoter 100/5 MDI INH SCH ×3 (07:17→22:00)
[2020-11-03] MEDS: SPIRIVA Respimat (tiotropium) 2.5 mcg/inh Inhaler INH SCH (07:18)
[2020-11-03] MEDS: Pantoprazole VIAL 40 MG VIAL IV SCH ×2 (08:04→20:42)
[2020-11-03] MEDS: ceFAZolin 1 GM ADVAN 1 GM in NS 0.9% 50 ML 50 ML IVPB SCH ×2 (09:58→22:01)
[2020-11-03] MEDS ORDERED: Albuterol 2.5mg/3 ml (0.083%) NEB.SOLN INH SCH ×2 (14:00→17:00)
[2020-11-03] MEDS: Albuterol 2.5mg/3 ml (0.083%) NEB.SOLN INH SCH (18:53)
[2020-11-04] MEDS: Albuterol 2.5mg/3 ml (0.083%) NEB.SOLN INH SCH ×4 (01:11→19:03)
[2020-11-04] MEDS: Acetylcysteine INH SOL (RT) 200 MG/ML 4 ML VIAL INH SCH ×4 (01:11→19:02)
[2020-11-04 04:17] LABS: Hematocrit 22 % (35-47); Hemoglobin 7.2 g/dL (12.0-16.0); Mean Corpuscular HGB Conc 33 g/dL (31-36); Mean Corpuscular Hemoglobin 31 pg (27-31); Mean Corpuscular Volume 94 fL (80-97); Platelet Count 191 10^3/uL (150-450); Red Blood Count 2.36 10^6 /uL (3.70-4.87); Red Cell Distribution Width 18 % (10-15); White Blood Count 20.1 10^3/uL (3.5-10.8)
[2020-11-04 04:34] LABS: Calcium 8.5 mg/dL (8.6-10.3); EGFR African American 28.6 (>60); EGFR Non-African American 23.7 (>60); Potassium 3.4 mmol/L (3.5-5.0)
[2020-11-04 04:48] LABS: ABS Basophils 0.2 10^3/ul (0-0.2); ABS Lymphocytes 1.8 10^3/ul (1.0-4.8); ABS Monocytes 1.2 10^3/ul (0-0.8); ABS Neutrophils 16.9 10^3/ul (1.5-7.7); Eosinophil % 0.1 %; Nucleated Red Blood Cells % 0.1
[2020-11-04] MEDS ORDERED: Potassium Chlor 20 meq TAB.ER PO ONE ×2 (07:46→10:05)
[2020-11-04] MEDS ORDERED: KCL 20 MEQ/100 ML IVPREMIX 20 MEQ/100 ML BAG IV ONE (07:46)
[2020-11-04] MEDS: Mometasone/Formoter 100/5 MDI INH SCH ×2 (08:56→19:03)
[2020-11-04] MEDS: SPIRIVA Respimat (tiotropium) 2.5 mcg/inh Inhaler INH SCH (08:56)
[2020-11-04 09:12] LABS: Magnesium 2.2 mg/dL (1.9-2.7); Phosphorus 4.1 mg/dL (2.5-5.0)
[2020-11-04] MEDS: ceFAZolin 1 GM ADVAN 1 GM in NS 0.9% 50 ML 50 ML IVPB SCH ×2 (10:33→21:47)
[2020-11-05] MEDS: Acetylcysteine INH SOL (RT) 200 MG/ML 4 ML VIAL INH SCH ×4 (01:18→19:01)
[2020-11-05] MEDS: Albuterol 2.5mg/3 ml (0.083%) NEB.SOLN INH SCH ×4 (01:19→19:01)
[2020-11-05 04:20] LABS: Hematocrit 22 % (35-47); Hemoglobin 7.3 g/dL (12.0-16.0); Mean Corpuscular HGB Conc 33 g/dL (31-36); Mean Corpuscular Hemoglobin 31 pg (27-31); Mean Corpuscular Volume 95 fL (80-97); Mean Platelet Volume 9.6 fL (7.4-10.4); Platelet Count 176 10^3/uL (150-450); Red Blood Count 2.36 10^6 /uL (3.70-4.87); Red Cell Distribution Width 18 % (10-15); White Blood Count 22.1 10^3/uL (3.5-10.8)
[2020-11-05 04:38] LABS: Calcium 8.5 mg/dL (8.6-10.3); EGFR African American 34.2 (>60); EGFR Non-African American 28.2 (>60); Magnesium 2.1 mg/dL (1.9-2.7); Phosphorus 3.2 mg/dL (2.5-5.0); Potassium 4.6 mmol/L (3.5-5.0)
[2020-11-05 04:40] LABS: ABS Basophils 0.1 10^3/ul (0-0.2); ABS Eosinophils 0.1 10^3/ul (0-0.6); ABS Lymphocytes 1.6 10^3/ul (1.0-4.8); ABS Monocytes 1.3 10^3/ul (0-0.8); Eosinophil % 0.3 %; Lymphocyte % 7.3 %; Nucleated Red Blood Cells % 0.1
[2020-11-05] MEDS: SPIRIVA Respimat (tiotropium) 2.5 mcg/inh Inhaler INH SCH (07:43)
[2020-11-05] MEDS: Mometasone/Formoter 100/5 MDI INH SCH ×2 (07:44→19:06)
[2020-11-05] MEDS: ceFAZolin 1 GM ADVAN 1 GM in NS 0.9% 50 ML 50 ML IVPB SCH ×2 (08:27→21:53)
[2020-11-06] MEDS: Acetylcysteine INH SOL (RT) 200 MG/ML 4 ML VIAL INH SCH ×4 (00:57→19:24)
[2020-11-06] MEDS: Albuterol 2.5mg/3 ml (0.083%) NEB.SOLN INH SCH ×4 (00:57→19:24)
[2020-11-06] MEDS: Mometasone/Formoter 100/5 MDI INH SCH ×2 (07:52→20:17)
[2020-11-06] MEDS: SPIRIVA Respimat (tiotropium) 2.5 mcg/inh Inhaler INH SCH (07:52)
[2020-11-06] MEDS ORDERED: ceFAZolin 1 GM ADVAN 2 GM in NS 0.9% 50 ML 50 ML IVPB SCH (08:39)
[2020-11-06] MEDS ORDERED: SODIUM CHLORIDE IVPB SCH (09:00)
[2020-11-06] MEDS ORDERED: CEFAZOLIN 2 GM IVPB SCH (09:00)
[2020-11-06] MEDS: ceFAZolin 2 GM PREMIX 2 GM/50 ML BAG IVPB SCH ×2 (09:56→22:42)
[2020-11-06] MEDS: Nystatin TOP POWDER 15 GM BTL TOPICAL SCH ×2 (17:41→20:57)
[2020-11-06 19:07] LABS: C Reactive Protein 20.48 mg/L (<8.01)
[2020-11-07] MEDS: Albuterol 2.5mg/3 ml (0.083%) NEB.SOLN INH SCH ×4 (00:29→19:05)
[2020-11-07] MEDS: Acetylcysteine INH SOL (RT) 200 MG/ML 4 ML VIAL INH SCH ×2 (00:29→06:49)
[2020-11-07 05:30] LABS: Hematocrit 21 % (35-47); Hemoglobin 6.6 g/dL (12.0-16.0); Mean Corpuscular HGB Conc 32 g/dL (31-36); Mean Corpuscular Hemoglobin 31 pg (27-31); Mean Corpuscular Volume 96 fL (80-97); Platelet Count 169 10^3/uL (150-450); Red Blood Count 2.14 10^6 /uL (3.70-4.87); Red Cell Distribution Width 18 % (10-15); White Blood Count 18.1 10^3/uL (3.5-10.8)
[2020-11-07 05:52] LABS: Calcium 8.2 mg/dL (8.6-10.3); EGFR Non-African American 32.2 (>60); Potassium 4.3 mmol/L (3.5-5.0)
[2020-11-07] MEDS: Mometasone/Formoter 100/5 MDI INH SCH ×3 (06:49→19:28)
[2020-11-07] MEDS: SPIRIVA Respimat (tiotropium) 2.5 mcg/inh Inhaler INH SCH ×2 (06:50→08:15)
[2020-11-07] MEDS ORDERED: Propofol 10 mg/ml 100 ML BTL 0 ML ONE (08:38)
[2020-11-07] MEDS ORDERED: Norepinephrine 16MCG/ML IVPRE 0 MCG/0 ML BAG IV ONE (08:38)
[2020-11-07] MEDS ORDERED: Propofol 10 MG/ML 20 ML BTL ONE (08:39)
[2020-11-07] MEDS: ceFAZolin 2 GM PREMIX 2 GM/50 ML BAG IVPB SCH ×2 (09:56→23:00)
[2020-11-07] MEDS: Nystatin TOP POWDER 15 GM BTL TOPICAL SCH ×2 (11:17→21:06)
[2020-11-07] MEDS ORDERED: Furosemide 20 mg/2 ml IV VIAL IV SLOW PU ONE (22:43)
[2020-11-08] MEDS: Albuterol 2.5mg/3 ml (0.083%) NEB.SOLN INH SCH ×2 (01:18→10:04)
[2020-11-08 05:41] LABS: Hematocrit 27 % (35-47); Mean Corpuscular HGB Conc 33 g/dL (31-36); Mean Corpuscular Hemoglobin 30 pg (27-31); Mean Corpuscular Volume 92 fL (80-97); Mean Platelet Volume 10.3 fL (7.4-10.4); Platelet Count 174 10^3/uL (150-450); Red Blood Count 2.97 10^6 /uL (3.70-4.87); Red Cell Distribution Width 19 % (10-15); White Blood Count 22.3 10^3/uL (3.5-10.8)
[2020-11-08 05:59] LABS: Calcium 8.2 mg/dL (8.6-10.3); EGFR African American 38.4 (>60); EGFR Non-African American 31.7 (>60); Magnesium 1.8 mg/dL (1.9-2.7); Potassium 3.6 mmol/L (3.5-5.0)
[2020-11-08] MEDS ORDERED: Magnesium Sulfate 2 gm BAG 2 GM/50 ML BAG IVPB ONE (08:04)
[2020-11-08] MEDS ORDERED: Succinylcholine 200 mg VIAL 20 mg/ml 10 ml VIAL (200 mg) ONE (08:26)
[2020-11-08] MEDS ORDERED: Etomidate 40 mg/20 ml (2 MG/ML) 20 ml VIAL (40 mg) ONE (08:34)
[2020-11-08] MEDS ORDERED: fentaNYL 250 mcg/5 ml 50 MCG/ML 5 ml VIAL (250 MCG) ONE (08:34)
[2020-11-08] MEDS ORDERED: Propofol 10 mg/ml 100 ML BTL 100 ML ONE (08:43)
[2020-11-08] MEDS: Propofol 10 mg/ml 100 ML BTL 100 ML IV SCH ×2 (09:00→14:20)
[2020-11-08] MEDS ORDERED: Acetylcysteine INHALATION SOL 200 MG/ML NEB.SOLN 10 ML ONE (09:01)
[2020-11-08] MEDS ORDERED: Acetylcysteine INHALATION SOL 200 MG/ML NEB.SOLN 10 ML INH ONE (09:08)
[2020-11-08] MEDS: SPIRIVA Respimat (tiotropium) 2.5 mcg/inh Inhaler INH SCH (10:04)
[2020-11-08] MEDS: Mometasone/Formoter 100/5 MDI INH SCH (10:04)
[2020-11-08] MEDS ORDERED: Lorazepam PYXIS KEY ONE (10:34)
[2020-11-08] MEDS ORDERED: LORazepam 2 mg VIAL 1 ml ONE (10:35)
[2020-11-08] MEDS: Nystatin TOP POWDER 15 GM BTL TOPICAL SCH ×2 (11:06→21:01)
[2020-11-08] MEDS: ceFAZolin 2 GM PREMIX 2 GM/50 ML BAG IVPB SCH ×2 (11:09→22:05)
[2020-11-08] MEDS ORDERED: LORazepam 2 mg VIAL 1 ml IV PUSH ONE (11:30)
[2020-11-08] MEDS: Chlorhexidine MOUTHWASH 0.12% 15 ML UDC TOPICAL SCH ×3 (12:59→20:59)
[2020-11-08] MEDS ORDERED: Lactated Ringers 1000 ml BAG 1,000 ML IV ONE (17:52)
[2020-11-09] MEDS: Chlorhexidine MOUTHWASH 0.12% 15 ML UDC TOPICAL SCH ×6 (01:18→20:11)
[2020-11-09 06:08] LABS: Hematocrit 28 % (35-47); Hemoglobin 9.1 g/dL (12.0-16.0); Mean Corpuscular HGB Conc 33 g/dL (31-36); Mean Corpuscular Hemoglobin 30 pg (27-31); Mean Corpuscular Volume 92 fL (80-97); Mean Platelet Volume 10.7 fL (7.4-10.4); Platelet Count 182 10^3/uL (150-450); Red Blood Count 3.01 10^6 /uL (3.70-4.87); Red Cell Distribution Width 19 % (10-15); White Blood Count 20.1 10^3/uL (3.5-10.8)
[2020-11-09 06:16] LABS: INR 1.49 (0.82-1.09)
[2020-11-09 06:24] LABS: Calcium 8.7 mg/dL (8.6-10.3); EGFR African American 31.5 (>60); Potassium 3.6 mmol/L (3.5-5.0)
[2020-11-09] MEDS: Nystatin TOP POWDER 15 GM BTL TOPICAL SCH ×2 (10:08→21:31)
[2020-11-09] MEDS: ceFAZolin 2 GM PREMIX 2 GM/50 ML BAG IVPB SCH ×2 (12:58→22:07)
[2020-11-09] MEDS: Propofol 10 mg/ml 100 ML BTL 100 ML IV SCH (13:07)
[2020-11-09] MEDS ORDERED: fentaNYL 100 mcg/2 ml 50 MCG/ML VIAL ONE ×2 (15:16→16:42)
[2020-11-09] MEDS ORDERED: fentaNYL 100 mcg/2 ml 50 MCG/ML VIAL IV SLOW PU ONE (18:40)
[2020-11-09] MEDS ORDERED: Lactated Ringers 1000 ml BAG 1,000 ML IV SCH (19:00)
[2020-11-09] MEDS ORDERED: Lactated Ringers 1000 ml BAG 500 ML IV ONE (19:45)
[2020-11-10] MEDS: Chlorhexidine MOUTHWASH 0.12% 15 ML UDC TOPICAL SCH ×3 (01:09→09:28)
[2020-11-10 04:21] LABS: Hematocrit 24 % (35-47); Hemoglobin 7.9 g/dL (12.0-16.0); Mean Corpuscular HGB Conc 33 g/dL (31-36); Mean Corpuscular Hemoglobin 30 pg (27-31); Mean Corpuscular Volume 93 fL (80-97); Mean Platelet Volume 10.9 fL (7.4-10.4); Platelet Count 185 10^3/uL (150-450); Red Cell Distribution Width 19 % (10-15)
[2020-11-10 04:26] LABS: Calcium 8.3 mg/dL (8.6-10.3); EGFR African American 28.6 (>60); EGFR Non-African American 23.7 (>60); Magnesium 2.1 mg/dL (1.9-2.7); Potassium 3.4 mmol/L (3.5-5.0)
[2020-11-10] MEDS: KCL 20 MEQ/100 ML IVPREMIX 20 MEQ/100 ML BAG IV SCH ×2 (09:28→12:17)
[2020-11-10] MEDS: Nystatin TOP POWDER 15 GM BTL TOPICAL SCH ×2 (09:29→21:11)
[2020-11-10] MEDS: ceFAZolin 2 GM PREMIX 2 GM/50 ML BAG IVPB SCH ×2 (11:03→22:30)
[2020-11-10] MEDS: Albuterol 2.5mg/3 ml (0.083%) NEB.SOLN INH PRN (23:49)
[2020-11-11] MEDS: Albuterol 2.5mg/3 ml (0.083%) NEB.SOLN INH PRN ×3 (00:21→13:16)
[2020-11-11 06:07] LABS: Hematocrit 24 % (35-47); Hemoglobin 7.8 g/dL (12.0-16.0); Mean Corpuscular HGB Conc 33 g/dL (31-36); Mean Corpuscular Hemoglobin 30 pg (27-31); Mean Corpuscular Volume 94 fL (80-97); Mean Platelet Volume 10.6 fL (7.4-10.4); Platelet Count 208 10^3/uL (150-450); Red Blood Count 2.56 10^6 /uL (3.70-4.87); Red Cell Distribution Width 19 % (10-15); White Blood Count 14.8 10^3/uL (3.5-10.8)
[2020-11-11 06:21] LABS: Calcium 7.9 mg/dL (8.6-10.3); EGFR Non-African American 23.1 (>60); Potassium 3.9 mmol/L (3.5-5.0)
[2020-11-11 08:25] LABS: Phosphorus 4.5 mg/dL (2.5-5.0)
[2020-11-11] MEDS ORDERED: Furosemide 40 mg/4 ml IV VIAL IV ONE (09:55)
[2020-11-11] MEDS ORDERED: Potassium Chloride LIQUID 20 MEQ/15 ML LIQUID PO ONE (10:09)
[2020-11-11] MEDS: ceFAZolin 2 GM PREMIX 2 GM/50 ML BAG IVPB SCH ×2 (10:19→21:15)
[2020-11-11] MEDS: Nystatin TOP POWDER 15 GM BTL TOPICAL SCH ×2 (10:21→20:53)
[2020-11-11] MEDS ORDERED: Norepinephrine 16MCG/ML IVPRE 4,000 MCG/250 ML BAG IV ONE (16:35)
[2020-11-12] MEDS: Albuterol 2.5mg/3 ml (0.083%) NEB.SOLN INH PRN ×2 (03:18→14:58)
[2020-11-12 06:57] LABS: Hematocrit 24 % (35-47); Hemoglobin 7.7 g/dL (12.0-16.0); Mean Corpuscular HGB Conc 32 g/dL (31-36); Mean Corpuscular Hemoglobin 31 pg (27-31); Mean Corpuscular Volume 95 fL (80-97); Mean Platelet Volume 10.4 fL (7.4-10.4); Platelet Count 250 10^3/uL (150-450); Red Blood Count 2.53 10^6 /uL (3.70-4.87); Red Cell Distribution Width 19 % (10-15); White Blood Count 13.9 10^3/uL (3.5-10.8)
[2020-11-12 08:01] LABS: Calcium 7.9 mg/dL (8.6-10.3); Potassium 4.3 mmol/L (3.5-5.0)
[2020-11-12 08:06] LABS: EGFR African American 23.7 (>60); EGFR Non-African American 19.5 (>60)
[2020-11-12] MEDS: ceFAZolin 2 GM PREMIX 2 GM/50 ML BAG IVPB SCH ×2 (09:19→21:01)
[2020-11-12] MEDS: Nystatin TOP POWDER 15 GM BTL TOPICAL SCH ×2 (09:20→20:53)
[2020-11-12] MEDS ORDERED: Ondansetron 4 mg VIAL 2 MG/ML 2 ml VIAL IV PRN (11:47)
[2020-11-12] MEDS: Morphine 2 MG/ML SYRINGE IV PRN (21:37)
[2020-11-13] MEDS: Morphine 2 MG/ML SYRINGE IV PRN ×2 (02:32→06:53)
[2020-11-13] MEDS ORDERED: LORazepam 2 mg VIAL 1 ml IV PUSH PRN (11:05)
[2020-11-13] MEDS ORDERED: Morphine 2 MG/ML SYRINGE IV PRN (11:05)
[2020-11-13] MEDS ORDERED: Atropine 1% (ORAL/SL) 15 ML BTL SL PRN (11:06)
[2020-11-13] MEDS ORDERED: CMC:Saliva Substitute (NF) 1 SPRAY BTL MT PRN (11:06)
[2020-11-13] MEDS ORDERED: Albuterol/Ipratropium NEB.SOL (2.5/0.5 MG) 3 ML NEB.SOLN INH PRN (11:07)
[2020-11-13] MEDS: ceFAZolin 2 GM PREMIX 2 GM/50 ML BAG IVPB SCH (11:44)
[2020-11-13] MEDS: Nystatin TOP POWDER 15 GM BTL TOPICAL SCH (11:44)
[2020-11-13] MEDS ORDERED: Lorazepam PYXIS KEY ONE (13:53)
[2020-11-13 19:13] VITALS: BP 104/45
== END 2020-11-14 05:40 | disposition expired | DRG 871 ==
LOC: ED 09:57 → ICU 12:57 → MEDTELE 10-28 17:35 → ICU 11-02 17:02 → MED 11-13 18:01
PROVIDERS: ADMIT Internal Medicine; ATTEND Internal Medicine